=== PATIENT | female | born 1980 | race Caucasian/White ===

== ENCOUNTER → 2017-09-21 09:01 | Outpatient (CLI) | payer OTHER, MEDICARE, SELFPAY ==
[2017-09-21 10:49] LABS: Microalbumin,Random Urine 14.7 mg/L (NO RANGE EST.); Microalbumin:Creatinine Ratio 7.1 mg/g CRE (<30 mg/g CRE)
[2017-09-21 11:21] LABS: AST(SGOT) 17 U/L (15-37); Alanine Aminotransfer ALT/SGPT 16 U/L (13-56); Anion Gap 10 (5-15); BUN 15 mg/dL (7-18); BUN/Creat Ratio 17.4 RATIO (10-20); Calcium,Total 7.8 mg/dL (8.5-10.1); Chloride 106 mmol/L (98-107); Cholesterol 144 mg/dL (200); Creatinine, Serum 0.86 mg/dL (0.55-1.02); EST Glomerular Filtration Rate 79 mL/min (>60); Est Glom Filt Rate - Afr Amer 96 mL/min (>60); Glucose 216 mg/dL (74-106); High Density Lipoprotein 51 mg/dL; Potassium 4.1 mmol/L (3.5-5.1); Sodium Level 142 mmol/L (136-145); Thyroid Stim Hormone (TSH) 5.32 uIU/mL (0.358-3.74); Triglycerides 74 mg/dL; Very Low Density Lipoprotein 15 mg/dL (5-40)
[2017-09-22 08:39] LABS: Vitamin D,25 Hydroxy 32.4 ng/mL (29.95-100.01)
== END ==
PROVIDERS: Family Provider Family Medicine; PCP Family Medicine; Visit Provider Nurse Practitioner Adult Health
DX: E10.65 Type 1 diabetes mellitus with hyperglycemia (principal); E55.9 Vitamin D deficiency, unspecified
CPT/HCPCS: 36415; 80048; 80061; 82043; 82306; 82570; 83036; 84443; 84450; 84460

== ENCOUNTER → 2018-02-22 09:35 | Outpatient (CLI) | payer MEDICARE, SELFPAY ==
[2018-02-22 11:07] LABS: Microalbumin,Random Urine 10.8 mg/L (NO RANGE EST.)
[2018-02-22 11:16] LABS: Hemoglobin A1c 8.5 % (4.2-6.3)
[2018-02-22 11:34] LABS: AST(SGOT) 19 U/L (15-37); Alanine Aminotransfer ALT/SGPT 17 U/L (13-56); Anion Gap 8 (5-15); BUN 14 mg/dL (7-18); BUN/Creat Ratio 17.5 RATIO (10-20); Calcium,Total 7.8 mg/dL (8.5-10.1); Chloride 107 mmol/L (98-107); Cholesterol 142 mg/dL (200); EST Glomerular Filtration Rate 87 mL/min (>60); Est Glom Filt Rate - Afr Amer 105 mL/min (>60); Glucose 212 mg/dL (74-106); High Density Lipoprotein 51 mg/dL; Potassium 4.2 mmol/L (3.5-5.1); Sodium Level 140 mmol/L (136-145); Thyroid Stim Hormone (TSH) 3.59 uIU/mL (0.358-3.74); Triglycerides 46 mg/dL; Very Low Density Lipoprotein 9 mg/dL (5-40)
[2018-02-22 11:41] LABS: Vitamin D,25 Hydroxy 40.2 ng/mL (29.95-100.01)
== END ==
PROVIDERS: Family Provider Family Medicine; PCP Family Medicine; Referring Provider Nurse Practitioner Adult Health; Visit Provider Nurse Practitioner Adult Health
DX: E10.65 Type 1 diabetes mellitus with hyperglycemia (principal); E55.9 Vitamin D deficiency, unspecified
CPT/HCPCS: 36415; 80048; 80061; 82043; 82306; 83036; 84443; 84450; 84460

== ENCOUNTER → 2018-06-09 11:13 | Outpatient (CLI) | payer MEDICARE, OTHER, SELFPAY ==
[2018-06-09 14:32] LABS: T4 Free Direct 0.85 ng/dL (0.76-1.46); Thyroid Stim Hormone (TSH) 3.94 uIU/mL (0.358-3.74)
== END ==
PROVIDERS: Family Provider Family Medicine; PCP Family Medicine; Referring Provider Nurse Practitioner Adult Health; Visit Provider Nurse Practitioner Adult Health
DX: E03.9 Hypothyroidism, unspecified (principal)
CPT/HCPCS: 36415; 84439; 84443

== ENCOUNTER 2018-08-24 06:00 | Day surgery (SDC) | payer MEDICARE, OTHER, SELFPAY ==
--- NOTE | 2010-08-18 11:11 | HP_ITS ---
Intake Intake Visit Reasons: right carpal tunnel Is patient in pain?: Yes Allergies No Known Allergies Allergy (Verified 08/18/18 08:40) Medications Insulin Aspart [Novolog] 1,000 unit CONT INF X1 08/01/18 [History Confirmed 08/01/18] Levothyroxine [Synthroid] 25 mcg PO MOTUWETHFR 08/01/18 [History Confirmed 08/01/18] Levothyroxine [Synthroid] 50 mcg PO SUSA 08/01/18 [History Confirmed 08/01/18] PFSH Social History Smoking Status: Never smoker HPI right carpal tunnel: Surgical H&P: Yes Details: Parts of this documentation were recorded by a scribe, this documentation accurately reflects the service provided and the decisions made by me, Rosario Castano, 08/18/18 0820. ARIADNA CAST is a 38 year old F here today for right hand. Patient complains of right middle finger trigger finger locking up. Patient notes that her finger is starting to stick. She complains of pain. She has had injections previously which have been helpful. She has numbness into her finger which comes and goes. ROS Const Reports system reviewed and no additional complaints, except as docu Eyes Reports system reviewed and no additional complaints, except as docu ENT Reports system reviewed and no additional complaints, except as docu Card Reports system reviewed and no additional complaints, except as docu Resp Reports system reviewed and no additional complaints, except as docu GI Reports system reviewed and no additional complaints, except as docu Reports system reviewed and no additional complaints, except as docu Musc Reports numbness, Reports stiffness Skin/Breast Reports system reviewed and no additional complaints, except as docu Neuro Yes system reviewed and no additional complaints, except as docu, Yes numbness Psych Reports system reviewed and no additional complaints, except as docu Endo Reports system reviewed and no additional complaints, except as docu Ortho Exam Right Wrist/Hand A1 marry trigger: Yes Assessment & Plan Problems 1. Trigger finger, right middle finger M65.331 Plan Reviewed the pre-operative plans with the patient. Risks and benefits of the procedure were fully explained, including but not limited to infection, neurovascular injury, continued pain, arthritis, stiffness, need for further surgery, re-injury, DVT, PE, general risks of anesthesia, and loss of limb or life. The patient understands all the risks and does wish to proceed with written consent. Reviewed post op restrictions Follow up post op or sooner if pain, swelling, numbness or associated symptoms, or concerns develop. All questions answered. Patient in agreement of plan. Coding Level of Care Code Off vis,est,level 3 Diagnoses Trigger finger, right middle finger M65.331
[2018-08-24] VITALS (7 sets, daily range): BP systolic 90–117; BP diastolic 55–80; PULSE 57–87; RESP 16–18; TEMP 36.3–36.9; O2SAT 94–96; BMI 29.0
[2018-08-24 06:56] LABS: Bedside Glucose 277 mg/dL (70-110)
[2018-08-24] MEDS: Cefazolin 2 GM in 0.9% Normal Saline 100 ML IV (07:26)
--- NOTE | 2018-08-24 07:42 | DCINST_ITS ---
Discharge Diet: No Restrictions - leave dressing intact, change dressing if gets wet or dirty, follow up in 2 weeks Discharge Activity: May Not Drive May shower in (days): 1 Ice area for (Minutes): 20 - Every hour while awake. Weight Bearing Status: Weight bearing as tolerated Keep extremity elevated above heart level: Operative Extremity Call your doctor if your incision/area has: Continuous Slow Oozing, Sudden Increased Bleeding, Increased Pain/ Swelling, Increased Redness, Foul Smelling Discharge Call your doctor if you observe: Fever of 101 or Higher, Coldness, Increased Pain, Numbness or Tingling, Change in Color, Calf discomfort Allergies/Adverse Reactions: Allergies No Known Allergies Allergy (Verified 08/24/18 06:30) Medications to take at Discharge Insulin Aspart [Novolog] 1,000 unit CONT INF X1 08/01/18 Levothyroxine [Synthroid] 25 mcg PO MOTUWETHFR 08/01/18 Levothyroxine [Synthroid] 50 mcg PO SUSA 08/01/18 Primary Care Physician: Kaylee Estrada DO [Primary Care Provider] - Test Results: Test results from this visit will be discussed in further detail at your follow- up appointment, if applicable. Please Follow Up With: Rosario Castano DO - [phone]
--- NOTE | 2018-08-24 07:42 | PCM.OPRPT ---
Report of Operation Date of Procedure: 08/24/18 Pre-Operative Diagnosis: right third trigger finger Post-Operative Diagnosis: same Surgery/Procedure Performed:: right A1 marry release third finger Type of Anesthesia:: Kamilah,Yandy Anesthesiologist: Trent Henao Specimen's removed: tt- 20 mins (yandy block) Estimated Blood Loss (mL): minimal Fluids Replaced: 200cc lr Description of Procedure: Preoperative note Patient is a 38 year-old female who came into my office as a new patient this week with a locked in quite painful right third middle finger. Due to the fact that it was locking quite painful failed conservative treatment, patient and mom decided to operate so she can regain function and decrease her pain and locking. Risks benefits and alternatives surgery discussed with patient and mom. Risks including but not limited to blood loss, blood clot, infection, neurovascular injury, failure procedure, loss of life and loss of limb. Patient is aware would like proceed with right trigger finger middle release A1 marry release. Operative note Patient seen and examined preoperative holding area. Right middle finger was marked. Patient is brought to the operating room and placed supine on the operating table. Sign, anesthesia, antibiotics were administered. The right arm was prepped and draped in usual sterile fashion after [place] block was initiated. We did test the [place] block it was working. Timeout was performed. We marked out our incision at the A1 marry of the right middle finger. We was about a centimeter and a half for length. We used a 15 blade to cut the skin tenotomies to dissect down to the level of the A1 marry. We then released the A1 marry both proximally and distally we then brought the tendons out of the incision and flex and extend at the DIP of the right middle finger to ensure that we had no further locking which we did not have. We then irrigated the incision with copious amounts of sterile saline. Incision was closed with interrupted 4-0 nylon stitches. Tourniquet was deflated for total working time of 6 minutes. Patient tolerated procedure well there are no complications, patient transferred to recovery room in stable condition. Postoperative note Use hand as tolerated but keep incision clean and dry Discussed with family Follow-up in 2 weeks for dressing change and suture removal OT family This note was generated with [employer] software. It may contain incorrect words, spelling, and punctuation that were not noted in checking the note before signing.
--- NOTE | 2018-08-24 07:45 | OP.PCM_ITS ---
Report of Operation Date of Procedure: 08/24/18 Pre-Operative Diagnosis: right third trigger finger Post-Operative Diagnosis: same Surgery/Procedure Performed:: right A1 marry release third finger Type of Anesthesia:: Kamilah,Yandy Anesthesiologist: Trent Henao Specimen's removed: tt- 20 mins (yandy block) Estimated Blood Loss (mL): minimal Fluids Replaced: 200cc lr Description of Procedure: Preoperative note Patient is a 38 year-old female who came into my office as a new patient this week with a locked in quite painful right third middle finger. Due to the fact that it was locking quite painful failed conservative treatment, patient and mom decided to operate so she can regain function and decrease her pain and locking. Risks benefits and alternatives surgery discussed with patient and mom. Risks including but not limited to blood loss, blood clot, infection, neurovascular injury, failure procedure, loss of life and loss of limb. Patient is aware would like proceed with right trigger finger middle release A1 marry release. Operative note Patient seen and examined preoperative holding area. Right middle finger was marked. Patient is brought to the operating room and placed supine on the operating table. Sign, anesthesia, antibiotics were administered. The right arm was prepped and draped in usual sterile fashion after [place] block was initiated. We did test the [place] block it was working. Timeout was performed. We marked out our incision at the A1 marry of the right middle finger. We was about a centimeter and a half for length. We used a 15 blade to cut the skin tenotomies to dissect down to the level of the A1 marry. We then released the A1 marry both proximally and distally we then brought the tendons out of the incision and flex and extend at the DIP of the right middle finger to ensure that we had no further locking which we did not have. We then irrigated the incision with copious amounts of sterile saline. Incision was closed with interrupted 4-0 nylon stitches. Tourniquet was deflated for total working time of 6 minutes. Patient tolerated procedure well there are no complications, patient transferred to recovery room in stable condition. Postoperative note Use hand as tolerated but keep incision clean and dry Discussed with family Follow-up in 2 weeks for dressing change and suture removal OT family This note was generated with [employer] software. It may contain incorrect words, spelling, and punctuation that were not noted in checking the note before signing.
[2018-08-24] MEDS: Mupirocin Ointment 22gm Tube 1 APPLIC (07:49)
== END 2018-08-24 09:21 | disposition home or self-care (01) ==
LOC: SDC 06:00 → AC 06:03
PROVIDERS: Family Provider Family Medicine; PCP Family Medicine; Referring Provider Orthopaedic Surgery; Visit Provider Orthopaedic Surgery
PROC: (CPT 26055; principal; 2018-08-24 07:20)
DX: M65.331 Trigger finger, right middle finger (principal); E10.9 Type 1 diabetes mellitus without complications; Z96.41 Presence of insulin pump (external) (internal); E07.9 Disorder of thyroid, unspecified; Z79.899 Other long term (current) drug therapy
CPT/HCPCS: 26055; 82962; J7120; J2405

== ENCOUNTER → 2018-09-30 | Outpatient (CLI) | payer MEDICARE, OTHER, SELFPAY ==
[2018-09-06 09:25] VITALS: BMI 29.0
[2018-09-30 10:24] LABS: Hemoglobin A1c 8.2 % (4.2-6.3); Vitamin D,25 Hydroxy 24.2 ng/mL (29.95-100.01)
[2018-09-30 10:40] LABS: AST(SGOT) 17 U/L (15-37); Alanine Aminotransfer ALT/SGPT 23 U/L (13-56); Anion Gap 6 (5-15); BUN 18 mg/dL (7-18); BUN/Creat Ratio 20.9 RATIO (10-20); Calcium,Total 8.1 mg/dL (8.5-10.1); Chloride 108 mmol/L (98-107); Cholesterol 145 mg/dL (200); Creatinine, Serum 0.86 mg/dL (0.55-1.02); EST Glomerular Filtration Rate 79 mL/min (>60); Est Glom Filt Rate - Afr Amer 96 mL/min (>60); Glucose 51 mg/dL (74-106); High Density Lipoprotein 54 mg/dL; Potassium 4.1 mmol/L (3.5-5.1); Sodium Level 141 mmol/L (136-145); T4 Free Direct 0.94 ng/dL (0.76-1.46); Thyroid Stim Hormone (TSH) 0.78 uIU/mL (0.358-3.74); Triglycerides 50 mg/dL; Very Low Density Lipoprotein 10 mg/dL (5-40)
[2018-09-30 12:59] LABS: Microalbumin,Random Urine 7.3 mg/L (NO RANGE EST.)
== END | disposition home or self-care (01) ==
LOC: MTLAB 07:26
PROVIDERS: Family Provider Family Medicine; PCP Family Medicine; Referring Provider Nurse Practitioner Adult Health; Visit Provider Nurse Practitioner Adult Health
DX: E10.65 Type 1 diabetes mellitus with hyperglycemia (principal); E55.9 Vitamin D deficiency, unspecified; E03.9 Hypothyroidism, unspecified
CPT/HCPCS: 36415; 80048; 80061; 82043; 82306; 83036; 84439; 84443; 84450; 84460

== ENCOUNTER 2018-11-29 10:49 | Emergency (ER) | payer MEDICARE, OTHER, SELFPAY ==
[2018-09-06 09:25] VITALS: BMI 29.0
[2018-11-29 10:50] VITALS: BP 118/76; PULSE 62; RESP 16; TEMP 36.1; O2SAT 100; BMI 32.7
--- NOTE | 2018-11-29 10:54 | ED.VIS.GEN ---
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 intake Relieved by: D50 infusion Associated Symptoms: Altered level of consciousness Narrative: Patient is a 38-year-old type I diabetic who manages her blood sugar well according to the loader operator supervisor. She had a donut for breakfast and had a glass of orange juice midmorning. The managers uncertain last time she had hypoglycemic event. Patient is reluctant to speak because I am unknown to her. Washery Engineer of [facility] answered most questions. Washery Engineer states she is not at baseline presently. She voiced no other symptoms in the last 24 to 48 hours. Prior similar symptoms: Yes Recent Illness/Hospitalization: No - Past Medical History (1) History of type 1 diabetes mellitus Status: Acute (2) HLD (hyperlipidemia) Status: Chronic (3) Trisomy 21 Status: Chronic (4) hx of bowel obstruction Status: Chronic Past Medical History - Allergies and Home Meds Allergies/Adverse Reactions: Allergies No Known Allergies Allergy (Verified 08/24/18 06:30) Primary Care Physician: Kaylee Estrada DO [Primary Care Provider] - Prior records reviewed: Yes Lives: Roommate Smoking Status: Never smoker Alcohol: None Drugs: None Review of Systems ROS: Unable to Obtain - Omitted secondary to cognitive impairment and altered mental status secondary to hypoglycemia General: Denies: Chills, Fever ENT: Denies: Rhinorrhea, Sore throat Cardiovascular: Denies: Chest pain Respiratory: Denies: Dyspnea, Cough Gastrointestinal: Denies: Nausea, Vomiting Musculoskeletal: Denies: Myalgias, Arthralgias Skin: Denies: Rash Neurological: Denies: Headache, Weakness Hematologic: Denies: Easy bruising, Easy bleeding Allergy: Denies: Uticaria, Swelling of the mouth Physical Exam Vital Signs/Narrative: Vital Signs Temp Pulse Resp BP Pulse Ox 11/29/18 10:50 97 F L 62 16 118/76 100 Inital Vital Signs reviewed: Yes General: Well nourished, Well developed, No Acute Distress Head: Normocephalic, Atraumatic Eyes: Perrl, EOMI. Negative for: Pale conjunctiva, Scleral icterus, - ENT: Moist mucous membranes, No rhinorrhea Neck: Supple, Nontender, No lymphadenopathy, No JVD, - Cardiovascular: Regular rate, Regular rhythm, No murmurs Respiratory: No distress, CTA bilaterally, Chest nontender Abdomen: Soft, Nontender, Nondistended, Normal bowel sounds Extremities: Nontender, No edema Skin: Normal color, No rash, No Trauma. Negative for: Cyanosis, Diaphoresis, Jaundice Neurological: Alert, Cranial nerves II-XII grossly intact, Normal Strength, Normal Sensation, Normal DTR Psychological: - - Unable to determine Diagnostic/Tx/Re-eval - Medical Decision Making But sugar prior to arrival was 130. 1800-calorie diet was ordered. Will observe and reassess. ED Disposition - Plan for ED Patient: Disposition: Home or Assisted Living Diagnosis: Acute alteration in mental status, Hypoglycemia due to type 1 diabetes mellitus Instructions: Diabetic Insulin Reaction Referrals: Kaylee Estrada DO [Primary Care Provider] - As Needed
[2018-11-29 11:05] LABS: Bedside Glucose 132 mg/dL (70-110)
[2018-11-29 12:09] VITALS: BP 123/91; PULSE 87; RESP 14; O2SAT 97
== END 2018-11-29 12:10 | disposition home or self-care (01) ==
PROVIDERS: Emergency Provider Emergency Medicine; Family Provider Family Medicine; PCP Family Medicine
DX: E10.649 Type 1 diabetes mellitus with hypoglycemia without coma (principal); R41.82 Altered mental status, unspecified; Q90.9 Down syndrome, unspecified; Z87.19 Personal history of other diseases of the digestive system; Z79.4 Long term (current) use of insulin
CPT/HCPCS: 82962; 99284; A4216

== ENCOUNTER → 2020-01-19 12:03 | Outpatient (CLI) | payer MEDICARE, MEDICAID, SELFPAY ==
[2020-01-19 15:43] LABS: Vitamin D,25 Hydroxy 74.8 ng/mL
[2020-01-19 15:47] LABS: AST(SGOT) 21 U/L (15-37); Alanine Aminotransfer ALT/SGPT 17 U/L (13-56); Anion Gap 6 (5-15); BUN 16 mg/dL (7-18); BUN/Creat Ratio 18.8 RATIO (10-20); Calcium,Total 8.5 mg/dL (8.5-10.1); Chloride 102 mmol/L (98-107); Cholesterol 174 mg/dL (200); Creatinine, Serum 0.85 mg/dL (0.55-1.02); EST Glomerular Filtration Rate 79 mL/min (>60); Est Glom Filt Rate - Afr Amer 96 mL/min (>60); Glucose 253 mg/dL (74-106); Hemoglobin A1c 8.6 % (3.8-5.6); High Density Lipoprotein 67 mg/dL; Potassium 4.8 mmol/L (3.5-5.1); Sodium Level 136 mmol/L (136-145); T4 Free Direct 0.86 ng/dL (0.76-1.46); Thyroid Stim Hormone (TSH) 4.21 uIU/mL (0.358-3.74); Triglycerides 75 mg/dL; Very Low Density Lipoprotein 15 mg/dL (5-40)
[2020-01-19 15:57] LABS: Microalbumin,Random Urine 6.1 mg/L (NO RANGE EST.); Microalbumin:Creatinine Ratio 9.2 mg/g CRE (<30 mg/g CRE)
[2020-01-23 11:17] LABS: LDL, Direct 120295 95 mg/dL (0-99)
== END ==
PROVIDERS: PCP Family Medicine
DX: E10.65 Type 1 diabetes mellitus with hyperglycemia (principal); E55.9 Vitamin D deficiency, unspecified; E03.9 Hypothyroidism, unspecified
CPT/HCPCS: 36415; 80048; 80061; 82043; 82306; 82570; 83036; 83721; 84439; 84443; 84450; 84460

== ENCOUNTER 2020-07-13 13:49 | Emergency (ER) | payer MEDICARE, MEDICAID, SELFPAY ==
[2020-07-13 13:51] VITALS: BP 122/52; PULSE 80; RESP 20; TEMP 35.8; O2SAT 98; BMI 30.4
--- NOTE | 2020-07-13 14:33 | CT_ITS ---
STUDY: CT ABDOMEN AND PELVIS WITH CONTRAST REASON FOR EXAM: Female, 39 years old. abd pain -- ??SBO vs other RADIATION DOSAGE (If Supplied By Facility): CTDIvol = ( 12.20 ) mGy, DLP = ( 733.02 ) mGycm TECHNIQUE: Transaxial images were obtained from the dome of the diaphragm to the symphysis pubis without oral contrast. IV 75mL Isovue-370 was administered. Sagittal and coronal images were reconstructed. Individualized dose optimization techniques were used for this CT. COMPARISON: None. FINDINGS: The visualized lung bases are unremarkable. The visualized portions of the heart are within normal limits. Normal liver. Normal gallbladder and extrahepatic biliary system. Normal spleen. Normal pancreas. Normal bilateral adrenal glands. Normal right kidney. Normal left kidney. Normal visualized stomach. Normal small intestine. Normal colon. The appendix is visualized and appears normal. Normal abdominal aorta. Normal inferior vena cava. Normal retroperitoneum. Normal urinary bladder. 2 cm thin-walled enhancing cyst or large dominant follicle of the left ovary. Mild free fluid of the pelvis. Enhancing or calcified nodule of the cervix to the right of midline measuring 1.5 cm. Normal abdominal wall. Normal osseous structures. CT/Abdomen/Pelvis W IV Cont ONLY IMPRESSION: No acute bowel related findings. Negative for obstruction, perforation or inflammatory bowel changes. The appendix is not identified. There is no inflammation in the expected location of the appendix. Normal kidneys bilaterally without hydronephrosis or stones. Unremarkable urinary bladder. Status post hysterectomy. 2 cm cyst of the left ovary consistent with a large dominant follicle or ovarian cyst which is slightly crenated and may be a ruptured cyst. Mild free fluid of the pelvis. Dense 1.5 cm nodule or enhancing nodule in the cervical cuff to the right of midline. Right ovary at a higher level and unremarkable. Electronically Signed: Evelin Randhawa MD at 16:11 EST , Service support ,
--- NOTE | 2020-07-13 14:35 | ED.DCSUM_ITS ---
- ER Visit Summary Date of Service: 07/13/20 Chief Complaint: Abdominal pain with nausea, vomiting diarrhea History of Present Illness: The patient is a 39 F 3 of independent diabetes and prior bowel obstruction. Prior partial hysterectomy with appendectomy and 2 prior bowel perforations with partial resections. Patient started having abdominal pain with nausea, vomiting and diarrhea earlier today. Elevated blood sugar as high as 600 at home. No fever or chills. No dysuria. Limited oral intake. Physical Examination: White female no acute distress vital signs stable afebrile. H EENT exam unremarkable. Moist with membranes. Neck nontender no lymphadenopathy. Lungs clear to auscultation bilaterally. Heart regular rhythm rate about 80 no murmur. Abdomen soft mildly distended. No peritoneal signs. Diffuse tenderness primarily in both upper quadrants. No obvious hernia or mass. Right lower quadrant unremarkable. Limited bowel sounds. Extremities moves all 4. No edema. Back nontender. Neurologically she is awake and alert with no focal motor deficits. Test Results: CBC normal white count 8 hemoglobin 13. No bands. Chemistries gap of 6 creatinine 1.27 glucose 265 liver enzymes normal lipase 56 UA negative serum ketones negative. CAT scan abdomen pelvis with IV contrast only as read by the radiologist and reviewed by me shows Emergency Department Course and Treatment: 39-year-old abdominal pain with prior obstructions and perforations. CAT scan labs being obtained. IV fluids, IV morphine and Zofran. Repeat exam patient is doing well at 4:10 PM. Abdomen is benign. She is requ esting water which I gave her some the drink. She and I and her mother went over all of her test results. Were awaiting her CAT scan report. Treatment Plan: Zofran as needed for nausea. Plenty of fluids and rest. Follow-up with your doctor if not improving or return if worse. Disposition: Discharge Impression: Acute abdominal pain with nausea, vomiting and diarrhea secondary to viral gastroenteritis History of insulin-dependent diabetes with hyperglycemia This note was generated with [employer] dictation software. It may contain incorrect words, spelling, and punctuation that were not noted in review of the chart prior to signing ED Disposition - Plan for ED Patient: Referrals: Kaylee Estrada DO [Primary Care Provider] -
[2020-07-13] MEDS: Ondansetron 4 MG/2 ML Vial IV (15:03)
[2020-07-13] MEDS: Morphine 4 MG/ML Syringe 6 MG IV (15:03)
[2020-07-13] MEDS: 0.9% Normal Saline 1,000 ML 1000 ML IV (15:06)
[2020-07-13 15:08] LABS: Absolute Lymphocyte Count 1.12 X10^3/uL (0.83-4.51); Absolute Neutrophil Count 6.7 X10^3/uL (2.0-7.7); Basophil# 0.04 X10^3/uL; Basophil% 0.5 % (0-1); Hematocrit 39.6 % (37-47); Hemoglobin 13.3 g/dL (12.0-15.0); Lymphocyte # 1.12 X10^3/ul (4.0); Lymphocyte % 13.2 % (19-41); Mean Corp Hgb Conc 33.6 g/dL (32-36); Mean Corpuscular Hgb 33.8 pg (27.0-32.0); Mean Corpuscular Volume 100.5 fL (81-99); Mean Platelet Vol. 10.4 fl (6.2-12.0); Monocyte# 0.54 X10^3/uL; Monocyte% 6.4 % (0-10); NRBC Flagged by Analyzer 0 % (0-5); Neutrophil # 6.74 X10^3/uL (2.7-7.7); Neutrophil % 79.5 % (47-70); Platelet Count 232 K/mm3 (150-450); RBC Distribution Width CV 11.9 % (11.6-14.6); RBC Distribution Width SD 43.9 fl (35.1-43.9); Red Blood Count 3.94 M/mm3 (4.2-5.4); White Blood Count 8.5 K/mm3 (4.4-11.0)
[2020-07-13 15:28] LABS: Mucous, Urine 0 SEEN /hpf (<or=2+); Red Blood Cells-Urine 0 SEEN /hpf (0-5); White Blood Cells 0 SEEN /hpf (0-5)
[2020-07-13 15:32] LABS: ALB/GLOB Ratio 0.8 RATIO (0.9-2.4); AST(SGOT) 31 U/L (15-37); Alanine Aminotransfer ALT/SGPT 18 U/L (13-56); Albumin, Serum 2.9 g/dL (3.2-5.0); Alkaline Phosphatase 84 U/L (45-117); Anion Gap 6 (5-15); BUN 26 mg/dL (7-18); BUN/Creat Ratio 20.5 RATIO (10-20); Calcium,Total 8.5 mg/dL (8.5-10.1); Chloride 103 mmol/L (98-107); Creatinine, Serum 1.27 mg/dL (0.55-1.02); EST Glomerular Filtration Rate 50 mL/min (>60); Est Glom Filt Rate - Afr Amer 61 mL/min (>60); Estimated Creatinine Clearance 43.56 ml/min; Globulin 3.5 g/dL (2.2-4.2); Glucose 265 mg/dL (74-106); Lipase 56 U/L (73-393); Potassium 4.9 mmol/L (3.5-5.1); Protein, Total 6.4 g/dL (6.4-8.2); Sodium Level 136 mmol/L (136-145)
[2020-07-13 15:36] LABS: Color, Urine Yellow (Yellow); Glucose, Dipstick 1000 mg/dl (Normal); Ketone-Dipstick 5 mg/dl (Negative); Leukocyte Esterase-Dipstick Negative /ul (Negative); Nitrite-Dipstick Negative (Negative); Occult Blood-Urine 10 /ul (Negative); Protein-Dipstick Negative (Negative); Urine Bilirubin Dipstick Negative (Negative); Urine Clarity Clear (Clear); Urine Urobilinogen Normal (Normal)
[2020-07-13 15:43] LABS: Bacteria 1+ /hpf (None Seen); Squamous Epithelial Cells - UA 5-10 SEEN /hpf (5-10)
--- NOTE | 2020-07-13 16:12 | ED.DEP ---
ED Disposition - Plan for ED Patient: Disposition: Home or Assisted Living Instructions: ED Gastroenteritis, Viral (Adult) Prescriptions: Ondansetron [Zofran Odt] 4 mg PO Q8H PRN PRN #7 tab PRN Reason: Nausea Prescription Printed Referrals: Kaylee Estrada DO [Primary Care Provider] - 1-2 Days if not improving Additional Instructions: Plenty of fluids and rest. Increase diet slowly. Zofran as needed for nausea. Follow-up with your doctor if not improving.
[2020-07-13 16:29] VITALS: PULSE 81; RESP 17; O2SAT 98
== END 2020-07-13 16:30 | disposition home or self-care (01) ==
PROVIDERS: Emergency Provider Emergency Medicine; PCP Family Medicine
DX: A08.4 Viral intestinal infection, unspecified (principal); E11.65 Type 2 diabetes mellitus with hyperglycemia; Z87.19 Personal history of other diseases of the digestive system; Z79.4 Long term (current) use of insulin; Z79.899 Other long term (current) drug therapy
CPT/HCPCS: 74177; 80053; 81001; 82009; 83690; 85025; 96361; 96374; 96375; 99284; J7030; Q9967; A4216; J2405

== ENCOUNTER 2020-08-07 20:07 | Observation (INO) | payer MEDICARE, MEDICAID, SELFPAY ==
[2020-08-07 20:08] VITALS: PULSE 49; RESP 18; TEMP 35; O2SAT 100; BMI 35.5
[2020-08-07 20:19] VITALS: BP 103/71; PULSE 42; PULSE 46; RESP 13; RESP 16; TEMP 35; O2SAT 100
--- NOTE | 2020-08-07 20:24 | EKG12_ITS ---
Test Reason : DYSRHYTHMIA Blood Pressure : / mmHG Vent. Rate : 041 BPM Atrial Rate : 041 BPM P-R Int : 176 ms QRS Dur : 084 ms QT Int : 482 ms P-R-T Axes : 030 065 024 degrees QTc Int : 397 ms Marked sinus bradycardia Abnormal ECG Confirmed by TILA ABRAMS, KATIE ([id number]), assignment editor SOILA LOMBARDI ([id number]) on 08/13/2020 8:51:34 AM Referred By: CORDELIA Confirmed By:KATIE ADORNO MD
--- NOTE | 2020-08-07 20:25 | CT_ITS ---
STUDY: CT ABDOMEN AND PELVIS WITH CONTRAST REASON FOR EXAM: Female, 40 years old. Abdominal pain. Unresponsive. RADIATION DOSAGE (If Supplied By Facility): CTDIvol = ( 19.67 ) mGy, DLP = ( 974.00 ) mGycm TECHNIQUE: Transaxial images were obtained from the dome of the diaphragm to the symphysis pubis without oral contrast. 100 ml of ISOVUE-370 contrast was administered. Sagittal and coronal images were reconstructed. Individualized dose optimization techniques were used for this CT. COMPARISON: 07/13/20 FINDINGS: This study is limited by patient motion and by streak artifact due to the patient''s arms being at her sides. The visualized lung bases are clear. The visualized portions of the heart and pericardium are within normal limits. There are no calcified gallstones present. The liver is within normal limits. There are no suspicious hepatic lesions. The spleen is normal in size. The pancreas is within normal limits. The adrenal glands are within normal limits. There are no renal or ureteral stones. There is no hydronephrosis. There are no focal renal lesions. Normal visualized stomach. There is no bowel obstruction or inflammation. There is a large amount of stool in the colon, consistent with constipation. The appendix is not visualized. The aorta is normal in caliber. There is no abdominal or pelvic free air, free fluid, fluid collection or lymphadenopathy. The patient is status post hysterectomy. There is a stable high density soft tissue nodule in the region of the cervix. There are no destructive osseous lesions. CT/Abdomen/Pelvis W IV Cont ONLY IMPRESSION: No bowel obstruction or inflammation. Constipation. Appendix not identified. Normal kidneys. No hydronephrosis. Status post hysterectomy. Stable high-density nodule in the cervix which may represent a complex nabothian cyst. Indicated, further evaluation with ultrasound can be performed. Electronically Signed: Dhruv Dietrich MD at 21:57 EDT Tel , Service support ,
--- NOTE | 2020-08-07 20:27 | ED.DCSUM_ITS ---
History of Present Illness Chief Complaint: Unresponsive Detail of Chief Complaint: Sponsor, bradycardia, hypothermia Informant: Family Onset: Hours Context: Sudden Onset Timing: Intermittent Quality: Responsive with labored breathing and worrying sounds Location: Gardening Current Severity: Mild Maximum Severity: Severe Worsened by: Unknown Relieved by: Nothing Associated Symptoms: Unable to determine Narrative: Patient is a 40-year-old woman with history of trisomy 21, Down syndrome, and type 1 diabetes who was gardening. Mother states she was gardening all day. When they went to check on her she was on her side somewhat position with arms drawn in. There was no obvious seizure activity. Mother states she had labored breathing and a roaring sound. They administered glucagon which had no effect. There is been no reported black or maroon stool. She denies pain anywhere. She denies shortness of breath. She denies problems with her vision. Prior similar symptoms: No Recent Illness/Hospitalization: No - Past Medical History (1) History of type 1 diabetes mellitus Status: Acute (2) HLD (hyperlipidemia) Status: Chronic (3) Trisomy 21 Status: Chronic Past Medical History - Allergies and Home Meds Allergies/Adverse Reactions: Allergies No Known Allergies Allergy (Verified 08/07/20 20:16) Primary Care Physician: Kaylee Estrada DO [Primary Care Provider] - Prior records reviewed: Yes Surgical History: - - Traumatic bowel perforation Lives: With Family Smoking Status: Never smoker Alcohol: None Drugs: None Review of Systems ROS: Unable to Obtain - Denies everything. History was provided by parents Physical Exam Vital Signs/Narrative: Vital Signs Temp Pulse Resp BP Pulse Ox 08/07/20 20:19 95 F L 42 L 13 103/71 100 08/07/20 20:08 95 F L 49 L 18 100 Inital Vital Signs reviewed: Yes General: Well nourished, Well developed, Obese, No Acute Distress Head: Normocephalic, Trauma - Old trauma Eyes: Perrl, EOMI, - - Nystagmus. There is no subconjunctival hemorrhage.. Negative for: Pale conjunctiva, Scleral icterus ENT: Moist mucous membranes, - - There is no clinical findings of basilar skull fracture.. Negative for: Nasal congestion, Sinus tenderness Neck: Supple, Nontender Cardiovascular: Regular rhythm, Normal S1, Normal S2, Bradycardia Respiratory: No distress, CTA bilaterally, Chest nontender Abdomen: No masses, Tender, Guarding, Hypoactive bowel sounds, - - Healed surgical scar noted.. Negative for: Soft, Nontender, Nondistended, Normal bowel sounds, Hepatomegaly, Splenomegaly Rectal: Deferred Back: Nontender, Normal Inspection Extremities: Nontender, No edema Skin: No Trauma, Rash - Circular rash with delayed capillary refill, 3 to 4 seconds. Negative for: Normal color, Cyanosis, Diaphoresis, Jaundice Neurological: Alert, Cranial nerves II-XII grossly intact, Normal Strength, Normal Sensation Psychological: Normal affect Diagnostic/Tx/Re-eval Impressions Abdomen/Pelvis CT 08/07/20 20:25 IMPRESSION: No bowel obstruction or inflammation. Constipation. Appendix not identified. Normal kidneys. No hydronephrosis. Status post hysterectomy. Stable high-density nodule in the cervix which may represent a complex nabothian cyst. Indicated, further evaluation with ultrasound can be performed. Electronically Signed: Dhruv Dietrich MD at 21:57 EDT Tel , Service support , 08/07/20 20:25 Abdomen/Pelvis W IV Cont ONLY [CT] Stat Laboratory Results 08/07/20 08/07/20 08/07/20 20:35 20:35 20:35 WBC 5.5 RBC 4.24 Hgb 14.0 Hct 42.2 MCV 99.5 H MCH 33.0 H MCHC 33.2 RDW Std Deviation 44.2 H RDW Coeff of Lamine 12.1 Plt Count 244 MPV 10.0 Immature Gran % (Auto) 0.400 Neut % (Auto) 55.4 Lymph % (Auto) 31.3 [place] % (Auto) 10.0 Eos % (Auto) 2.2 Baso % (Auto) 0.7 Absolute Neuts (auto) 3.0 Absolute Lymphs (auto) 1.72 Nucleated RBC % 0 Sodium 136 Potassium 3.6 Chloride 102 Carbon Dioxide 26.0 Anion Gap 8 BUN 20 H Creatinine 1.04 H Estim Creat Clear Calc 52.68 Est GFR (MDRD) Af Amer 76 Est GFR (MDRD) Non-Af 63 BUN/Creatinine Ratio 19.2 Glucose 91 Lactic Acid 2.2 H* Calcium 8.8 Total Bilirubin 0.40 AST 25 ALT 21 Alkaline Phosphatase 84 Troponin I < 0.015 Total Protein 6.8 Albumin 3.2 Globulin 3.6 Albumin/Globulin Ratio 0.9 Lipase 80 TSH 2.65 With lactic acidosis, hypotension and collapse with bradycardia hospitalist was paged for admission. CT of the abdomen reveals no abnormality to explain her upper abdominal discomfort. - EKG Initial EKG Interpretation: Sinus Bradycardia - Sinus bradycardia with a ventricular rate of 41. WV interval is 176 ms. Cures duration 84 ms. QT duration 482 ms. Jenison is normal. - Medical Decision Making EKG was obtained since monitor reveals bradycardia. CBC was obtained assess white count and H&H. BMP to assess blood sugar, electrolytes and renal function. Since patient has a very tender firm/rigid abdomen CT of the abdomen was ordered. Review of prior records indicates normal blood pressure is 120 systolic. She is had multiple readings of low 100s. She did receive a fluid bolus. Patient remained hypotensive after first bolus. Second bolus was ordered. Since patient is not tachypneic nor hypoxic CT of the chest was not obtained. 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
[2020-08-07 20:46] LABS: Absolute Lymphocyte Count 1.72 X10^3/uL (0.83-4.51); Basophil# 0.04 X10^3/uL; Basophil% 0.7 % (0-1); Eosinophil# 0.12 X10^3/uL; Eosinophils% 2.2 % (0-5); Hematocrit 42.2 % (37-47); Lymphocyte # 1.72 X10^3/ul (4.0); Lymphocyte % 31.3 % (19-41); Mean Corp Hgb Conc 33.2 g/dL (32-36); Mean Corpuscular Volume 99.5 fL (81-99); Monocyte# 0.55 X10^3/uL; NRBC Flagged by Analyzer 0 % (0-5); Neutrophil # 3.04 X10^3/uL (2.7-7.7); Neutrophil % 55.4 % (47-70); Platelet Count 244 K/mm3 (150-450); RBC Distribution Width CV 12.1 % (11.6-14.6); RBC Distribution Width SD 44.2 fl (35.1-43.9); Red Blood Count 4.24 M/mm3 (4.2-5.4); White Blood Count 5.5 K/mm3 (4.4-11.0)
[2020-08-07 21:08] VITALS: BP 110/65; PULSE 55; RESP 16; O2SAT 100
[2020-08-07 21:25] LABS: ALB/GLOB Ratio 0.9 RATIO (0.9-2.4); AST(SGOT) 25 U/L (15-37); Alanine Aminotransfer ALT/SGPT 21 U/L (13-56); Albumin, Serum 3.2 g/dL (3.2-5.0); Alkaline Phosphatase 84 U/L (45-117); Anion Gap 8 (5-15); BUN 20 mg/dL (7-18); BUN/Creat Ratio 19.2 RATIO (10-20); Calcium,Total 8.8 mg/dL (8.5-10.1); Chloride 102 mmol/L (98-107); Creatinine, Serum 1.04 mg/dL (0.55-1.02); EST Glomerular Filtration Rate 63 mL/min (>60); Est Glom Filt Rate - Afr Amer 76 mL/min (>60); Estimated Creatinine Clearance 52.68 ml/min; Globulin 3.6 g/dL (2.2-4.2); Glucose 91 mg/dL (74-106); Lipase 80 U/L (73-393); Potassium 3.6 mmol/L (3.5-5.1); Protein, Total 6.8 g/dL (6.4-8.2); Sodium Level 136 mmol/L (136-145); Thyroid Stim Hormone (TSH) 2.65 uIU/mL (0.358-3.74)
[2020-08-07 21:33] LABS: Lactic Acid 2.2 mmol/L (0.4-1.9)
[2020-08-07 22:15] VITALS: BP 119/72; PULSE 53; PULSE 55; RESP 14; RESP 15; TEMP 35.8; O2SAT 100
[2020-08-07 22:33] VITALS: BP 119/72; PULSE 52; RESP 16; TEMP 35.8; O2SAT 100
[2020-08-07 22:55] LABS: Bedside Glucose 104 mg/dL (70-110)
--- NOTE | 2020-08-07 22:56 | HP.PCM_ITS ---
Problem List (1) Syncope and collapse Status: Acute (2) Sinus bradycardia Status: Acute (3) Lactic acidosis Status: Acute (4) History of type 1 diabetes mellitus Status: Chronic (5) Trisomy 21 Status: Chronic History of Present Illness Date of Admission: 08/07/20 Chief Complaint: Syncope, bradycardia The patient is a 40 year old F presents today after her parents found her unresponsive in the garden. She is type I diabetic and parents initially thought she had a low blood sugar and subsequently administered glucagon which did not resolve symptoms. EMS reports an initial heart rate of 40 and fingerstick blood glucose 203. Labs completed in the ER show a mild elevation of BUN and creatinine 20/1.04, lactic acid of 2.2, glucose 91. Subsequent fingerstick glucose 104. Patient received 500 ml bolus normal saline in ER. Patient denies fever, chills, chest pain, shortness of breath, nausea. Patient does not remember what happened prior to episode and currently denies all complaints. Past Medical History Past Medical History (Chronic Problems): Chronic Problems History of type 1 diabetes mellitus (Chronic) system 21 (Chronic) Trisomy 21 (Chronic) hx of bowel obstruction (Chronic) HLD (hyperlipidemia) (Chronic) Allergies No Known Allergies Allergy (Verified 08/07/20 20:16) Home Medications: Ambulatory Orders Medication Instructions Recorded Insulin Aspart [Novolog] 1,000 unit CONT INF X1 08/01/18 Levothyroxine [Synthroid] 25 mcg PO MOTUWETHFR 08/01/18 Levothyroxine [Synthroid] 50 mcg PO SUSA 08/01/18 Ondansetron [Zofran Odt] 4 mg PO Q8H PRN PRN #7 tab 07/13/20 Surgical History: hysterectomy, - - Traumatic bowel perforation Psychiatric History: No pertinent psych hx GEOPHYSICAL LABORATORY DIRECTOR History: No pertinent GEOPHYSICAL LABORATORY DIRECTOR history Lives: With Family Smoking Status: Never smoker Alcohol: None Drugs: None - *Family History Maternal History Items: No pertinent history Paternal History Items: Hypertension Review of Systems Constitutional: Denies: Chills, Fever, Weight Change HEENT: Denies: Head Aches, Sinus Congestion, Sinus Drainage Cardiovascular: Reports: Syncope. Denies: Chest Pain, Palpitations Respiratory: Denies: Cough, Shortness of breath at rest, Sputum production Gastrointestinal: Reports: Constipation. Denies: Abdominal Pain, Nausea, Vomiting Genitourinary: Denies: Dysuria Musculoskeletal: Reports: Arm Pain - Left upper extremity. Denies: Joint Pain, Joint Tenderness Skin: Denies: Rash, Wounds Neurological: Reports: Tingling - Left upper extremity. Denies: Focal weakness, Numbness Psychiatric: Denies: Anxiety, Depression, Homicidal Ideations, Suicidal Ideations Hematologic/ Lymphatic: Denies: Easy Bruising, Easy Bleeding VTE Information - Inpt Only VTE Present on Admission: No VTE Mechan Device Prophylaxis: None VTE Pharm Prophylaxis ordered?: No Patient Problems: Active and Suspected Problems Hypotension (Acute) Lactic acidosis (Acute) Sinus bradycardia (Acute) Collapse (Acute) Upper abdominal pain of unknown etiology (Acute) - Physical Exam Vitals/I&O's: Vital Signs Temp Pulse Resp BP Pulse Ox 96.4 F L 52 L 16 119/72 100 08/07/20 22:33 08/07/20 22:33 08/07/20 22:33 08/07/20 22:33 08/07/20 22:33 Oxygen Delivery Method Room Air Weight: 182 lb 1.629 oz Body Mass Index (BMI) 35.5 Finger Stick Blood Glucose 132 General: Alert, Oriented x3, Cooperative HEENT: Atraumatic, PERRLA, EOMI, Normocephalic Neck: Supple, No JVD, Negative Carotid Bruits Lungs: Clear to auscultation, Normal air movement Cardiovascular: Regular Rhythm, Normal S1, Normal S2, No murmurs, Bradycardic Abdomen: Bowel Sounds Present, Non Tender, Rigid Extremities: No edema, Capillary Refill Less than 3 Seconds, Peripheral Pulses Normal Skin: No rashes, No breakdown Musculoskeletal: No Tenderness to Palpation of Joints or Extremities, - - Left arm pain and tingling Neurological: Cranial nerves II-XII grossly intact Psych/Mental Status: Normal Affect, Appropriate Laboratory Results 08/07/20 20:35: WBC 5.5, RBC 4.24, Hgb 14.0, Hct 42.2, MCV 99.5 H, MCH 33.0 H, MCHC 33.2, RDW Std Deviation 44.2 H, RDW Coeff of Lamine 12.1, Plt Count 244, MPV 1 0.0, Immature Gran % (Auto) 0.400, Neut % (Auto) 55.4, Lymph % (Auto) 31.3, [place] % (Auto) 10.0, Eos % (Auto) 2.2, Baso % (Auto) 0.7, Absolute Neuts (auto) 3.0, Absolute Lymphs (auto) 1.72, Nucleated RBC % 0 08/07/20 20:35: Sodium 136, Potassium 3.6, Chloride 102, Carbon Dioxide 26.0, Anion Gap 8, BUN 20 H, Creatinine 1.04 H, Estim Creat Clear Calc 52.68, Est GFR (MDRD) Af Amer 76, Est GFR (MDRD) Non-Af 63, BUN/Creatinine Ratio 19.2, Glucose 91, Calcium 8.8, Total Bilirubin 0.40, AST 25, ALT 21, Alkaline Phosphatase 84, Troponin I < 0.015, Total Protein 6.8, Albumin 3.2, Globulin 3.6, Albumin/Globulin Ratio 0.9, Lipase 80, TSH 2.65 08/07/20 20:35: Lactic Acid 2.2 H* 08/07/20 22:50: POC Glucose 104 Assessment/Plan All Active Problems Hypotension (Acute) Lactic acidosis (Acute) Sinus bradycardia (Acute) Collapse (Acute) Upper abdominal pain of unknown etiology (Acute) Syncope and collapse (Acute) 1. Syncope and collapse with bradycardia -Admit to PCU for cardiac monitoring -Echo in a.m. -Trend cardiac enzymes overnight -Check magnesium and phosphorus level -CBC, CMP, PT/INR in a.m. -Consult cardiology -Aspirin 81 mg p.o. daily 2. Abdominal pain -CT shows no acute changes. -UA ordered 3. Left upper arm pain -Venous duplex ordered to rule out DVT as area is slightly red and bruised, however this could be attributed to patient moving rocks in garden 4. Diabetes mellitus type 1 -Spoke with parents regarding patient use of insulin pump, parents will remove insulin pump while patient is hospitalized. -AC at bedtime blood sugars with sliding scale insulin ordered 5. Hypothyroidism -TSH 2.65, continue current Synthroid regimen 6. Lactic acidosis -Initial level 2.2 in ER, received 500 mL bolus -Normal saline 100 mL/h ordered -Recheck per policy 7. Trisomy 21 DVT prophylaxis-not indicated This patient was seen by Roya Pham NP-C under the supervision of Dr. Hopson.
[2020-08-07 23:34] VITALS: BMI 32.4
[2020-08-07] MEDS: 0.9% Normal Saline 1,000 ML 100 ML IV (23:54)
[2020-08-07] MEDS: 0.9% Saline Lock 10 ML Syringe IV (23:54)
[2020-08-07 23:57] VITALS: PULSE 62
[2020-08-08] VITALS (23 sets, daily range): BP systolic 56–120; BP diastolic 27–69; PULSE 55–102; RESP 12–18; TEMP 36.3–37.3; O2SAT 94–100
[2020-08-08 00:06] LABS: Bedside Glucose 132 mg/dL (70-110)
[2020-08-08 00:43] LABS: Reflex Lactate? Y
[2020-08-08 01:10] LABS: International Normalized Ratio 1.1; Prothrombin Time (Protime)PT. 13.5 SECONDS (11.7-14.9)
[2020-08-08 01:11] LABS: Partial Thromboplast Time 30.2 Seconds (24.1-36.2)
[2020-08-08 01:26] LABS: Magnesium 2.1 mg/dL (1.6-2.6); Phosphorus 3.5 mg/dL (2.5-4.9)
[2020-08-08 03:19] LABS: Bacteria 0 SEEN /hpf (None Seen); Mucous, Urine 0 SEEN /hpf (<or=2+); Red Blood Cells-Urine 0 SEEN /hpf (0-5); White Blood Cells 0 SEEN /hpf (0-5)
[2020-08-08 03:20] LABS: Color, Urine Yellow (Yellow); Glucose, Dipstick Normal (Normal); Ketone-Dipstick 50 mg/dl (Negative); Leukocyte Esterase-Dipstick Negative /ul (Negative); Nitrite-Dipstick Negative (Negative); Occult Blood-Urine Negative /ul (Negative); Protein-Dipstick Negative (Negative); Urine Bilirubin Dipstick Negative (Negative); Urine Clarity Clear (Clear); Urine Urobilinogen Normal (Normal); Urine pH 6.5 (5.0 - 8.0)
[2020-08-08 03:27] LABS: Squamous Epithelial Cells - UA 0-5 SEEN /hpf (5-10)
[2020-08-08 04:46] LABS: Bedside Glucose 272 mg/dL (70-110)
[2020-08-08 05:03] LABS: Absolute Lymphocyte Count 1.95 X10^3/uL (0.83-4.51); Absolute Neutrophil Count 3.6 X10^3/uL (2.0-7.7); Basophil# 0.04 X10^3/uL; Basophil% 0.7 % (0-1); Eosinophil# 0.07 X10^3/uL; Eosinophils% 1.1 % (0-5); Hemoglobin 13.8 g/dL (12.0-15.0); Lymphocyte # 1.95 X10^3/ul (4.0); Lymphocyte % 31.8 % (19-41); Mean Corp Hgb Conc 33.7 g/dL (32-36); Mean Corpuscular Hgb 33.7 pg (27.0-32.0); Mean Platelet Vol. 10.2 fl (6.2-12.0); Monocyte# 0.42 X10^3/uL; Monocyte% 6.9 % (0-10); NRBC Flagged by Analyzer 0 % (0-5); Neutrophil # 3.63 X10^3/uL (2.7-7.7); Neutrophil % 59.2 % (47-70); Platelet Count 241 K/mm3 (150-450); RBC Distribution Width CV 12.4 % (11.6-14.6); RBC Distribution Width SD 45.4 fl (35.1-43.9); White Blood Count 6.1 K/mm3 (4.4-11.0)
[2020-08-08 05:13] LABS: International Normalized Ratio 1.1
[2020-08-08] MEDS: Ondansetron 4 MG/2 ML Vial IV (05:28)
[2020-08-08] MEDS: Levothyroxine 25 MCG TABLET PO (05:34)
[2020-08-08 05:39] LABS: ALB/GLOB Ratio 0.8 RATIO (0.9-2.4); AST(SGOT) 22 U/L (15-37); Alanine Aminotransfer ALT/SGPT 17 U/L (13-56); Albumin, Serum 2.6 g/dL (3.2-5.0); Alkaline Phosphatase 79 U/L (45-117); Anion Gap 8 (5-15); BUN 19 mg/dL (7-18); BUN/Creat Ratio 22.1 RATIO (10-20); Calcium,Total 8.4 mg/dL (8.5-10.1); Chloride 103 mmol/L (98-107); Creatinine, Serum 0.86 mg/dL (0.55-1.02); EST Glomerular Filtration Rate 79 mL/min (>60); Est Glom Filt Rate - Afr Amer 95 mL/min (>60); Estimated Creatinine Clearance 63.71 ml/min; Globulin 3.3 g/dL (2.2-4.2); Glucose 286 mg/dL (74-106); Potassium 4.8 mmol/L (3.5-5.1); Protein, Total 5.9 g/dL (6.4-8.2); Sodium Level 133 mmol/L (136-145)
[2020-08-08] MEDS: Acetaminophen 325 MG Tablet 650 MG PO (05:48)
[2020-08-08] MEDS: 0.9% Normal Saline 1,000 ML 999 ML IV ×3 (05:49→07:33)
--- NOTE | 2020-08-08 05:55 | ECHOD_ITS ---
Reason For Study: BRADYCARDIA, SYNCOPE Procedure This was a 2D Doppler, Color Flow transthoracic echocardiogram. Exam performed portable in patient room. Left Ventricle Normal LV size. Probable membranous VSD. Left ventricular systolic function is normal. The estimated ejection fraction is 65 %. No regional wall motion abnormalities noted. Right Ventricle Normal RV size. Normal systolic function. Atria Normal left atrium. Normal right atrium. Mitral Valve Normal mitral valve. Tricuspid Valve Normal tricuspid valve. Aortic Valve Normal aortic valve. Trisinus/trileaflet aortic valve. Pulmonic Valve Normal pulmonic valve. Great Vessels Normal aortic root. The pulmonary artery is normal size. Normal inferior vena cava. Pericardium/Pleural No pericardial effusion. Medication Performed a rapid injection of agitated mix of 9 cc saline and 1cc air to assess for atrial septal defect. MMode/2D Measurements & Calculations LVIDd: 4.5 cm IVSd: 0.88 cm Ao root diam: 2.8 cm LVIDs: 3.0 cm LVPWd: 0.89 cm RVDd: 3.3 cm FS: 33.6 % LAV(MOD-bp): 36.2 ml LVAd ap4: 29.7 cm2 SV(MOD-sp4): 59.0 ml LAV(MOD-bp) Indexed: 21.0 ml/m2 EDV(MOD-sp4): 86.7 ml LAV(MOD-sp2): 31.0 ml EDV(sp4-el): 87.5 ml LAV(MOD-sp4): 37.2 ml LVAs ap4: 14.8 cm2 ESV(MOD-sp4): 27.7 ml ESV(sp4-el): 26.5 ml EF(MOD-sp4): 68.0 % EF(sp4-el): 69.7 % SV(sp4-el): 61.1 ml LA A4 area: 16.2 cm2 LA dimension(2D): 2.6 cm RA A4 area: 13.5 cm2 Time Measurements MV dec time: 0.17 sec Doppler Measurements & Calculations MV E max adarsh: 124.5 cm/sec Lat Peak E' Adarsh: 15.4 cm/sec Med Peak E' Adarsh: 12.3 cm/sec MV A max adarsh: 114.4 cm/sec E/E' lat: 8.1 E/E' med: 10.2 MV E/A: 1.1 Ao V2 max: 208.7 cm/sec LV V1 max: 173.5 cm/sec PA V2 max: 168.2 cm/sec Ao max P.4 mmHg LV V1 max P.0 mmHg Ao V2 mean: 164.3 cm/sec Ao mean P.7 mmHg Ao V2 VTI: 36.4 cm Interpretation Summary Normal LV size. Left ventricular systolic function is normal. The estimated ejection fraction is 65 %. Probable membranous VSD Ordering Physician: Roya Pham Referring Physician: ARIADNA ACOSTA Performed By: Randi Erickson, NAA, RVT
[2020-08-08] MEDS: proCHLORPERazine 10 MG/2 ML Vial IV (06:17)
--- NOTE | 2020-08-08 06:43 | PCM.HOSP.N ---
Hospitalist Note Patient with ongoing RLQ pain, rating 6/10, discussed ED CT with Surgery, Dr. Kimble who will also evaluate patient, will obtain CT A/P repeat with oral contrast to be cautious. Patient notably orthostatic, administering 2L NS and will continue to closely monitor BP. If further issues with hypotension, not responsive to IVFs may necessitate ICU transfer.
[2020-08-08 06:46] LABS: Bedside Glucose 321 mg/dL (70-110)
[2020-08-08] MEDS: Insulin Lispro 100 UNIT/ML INSULN.PEN SC ×5 (06:55→20:37)
--- NOTE | 2020-08-08 07:53 | CT_ITS ---
STUDY: CT ABDOMEN AND PELVIS WITHOUT CONTRAST REASON FOR EXAM: Female, 40 years old. Abdominal pain RADIATION DOSAGE (If Supplied By Facility): CTDIvol = ( 10.50 ) mGy, DLP = ( 519.26 ) mGycm TECHNIQUE: Transaxial images were obtained from the dome of the diaphragm to the symphysis pubis with oral contrast, and without intravenous contrast. Sagittal and coronal images were reconstructed. Individualized dose optimization techniques were used for this CT. COMPARISON: 08/07/20 FINDINGS: Evaluation of the abdominal viscera is limited in the absence of intravenous contrast. The visualized lung bases are clear. The visualized portions of the heart and pericardium are within normal limits. There are no calcified gallstones present. The liver demonstrates an unremarkable unenhanced appearance. The spleen is normal in size. The pancreas demonstrates an unremarkable unenhanced appearance. The adrenal glands are within normal limits. There are no obstructing renal or ureteral stones. There is no hydronephrosis. Excreted contrast noted in the collecting systems and urinary bladder Normal visualized stomach. There is no bowel obstruction or inflammation. Again noted is a large amount of stool in the colon. The appendix is not visualized. The aorta is normal in caliber. There is a stable high density soft tissue nodule in the region of the cervix. There is no abdominal or pelvic free air, free fluid, fluid collection or lymphadenopathy. There are no destructive osseous lesions. CT/Abdomen/Pel W ORAL Cont Only IMPRESSION: No bowel obstruction or inflammation. Constipation. Appendix not identified. No obstructing urinary calculi. No hydronephrosis. Excretion contrast is noted in the collecting systems and urinary bladder. Status post hysterectomy. Stable high-density nodule in the cervix which may represent a complex nabothian cyst. Indicated, further evaluation with ultrasound can be performed. Electronically Signed: Dhruv Dietrich MD at 10:36 EDT Tel , Service support ,
--- NOTE | 2020-08-08 08:01 | NURSING ---
Called mom to give her an update on pt and let her know that pt is requesting her to come in and be with her. Updated mom on pt status and plan for abdominal CT w/ contrast. EDNA Mtz
[2020-08-08] MEDS: 0.9% Normal Saline 1,000 ML 150 ML IV ×3 (08:28→22:48)
[2020-08-08 08:30] LABS: Lactic Acid 1.1 mmol/L (0.4-1.9)
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
[2020-08-08] MEDS: Bisacodyl 10 MG Suppository RC (08:41)
--- NOTE | 2020-08-08 09:24 | NURSING ---
CT notified that pt finished drinking her bottle of contrast.
[2020-08-08 11:46] LABS: Bedside Glucose 258 mg/dL (70-110)
[2020-08-08] MEDS: Aspirin 81 MG TAB.CHEW PO (12:57)
[2020-08-08] MEDS: Polyethylene Glycol 3350 17 GM PACKET PO (12:57)
[2020-08-08] MEDS: Cosyntropin 0.25 MG in 0.9% Normal Saline (Pres. free 1 ML 30 MG IV (13:33)
--- NOTE | 2020-08-08 15:10 | PN_ITS ---
Patient Problems: Active and Suspected Problems Hypotension (Acute) Lactic acidosis (Acute) Sinus bradycardia (Acute) Collapse (Acute) Upper abdominal pain of unknown etiology (Acute) Syncope and collapse (Acute) Subjective: I was called this morning for persistent hypotension and considerable orthostatic hypotension. Patient was given fluid boluses and placed in Trendelenburg after which her blood pressure did improve and she was able to sit up she had continued abdominal pain which now has improved. Her CTs reveal significant constipation. The patient does indicate that she has daily bowel movements although the quantity and type of bowel movement is unknown at this time. Her mother is currently at bedside and states that she has had these passing out episodes in the past but nothing to this extreme. She is a type I diabetic and has been so since she was 15 years old. She typically utilizes an insulin pump at home but her parents took this off of her prior to her coming to the hospital. The patient indicates that she intermittently gets lightheadedness with positional changes. Vitals/I&O's: Vital Signs Temp Pulse Resp BP Pulse Ox 97.8 F 92 17 91/49 L 97 08/08/20 11:30 08/08/20 14:59 08/08/20 11:30 08/08/20 11:30 08/08/20 11:30 Oxygen Delivery Method Room Air Weight: 75.3 kg Body Mass Index (BMI) 32.4 Finger Stick Blood Glucose 132 Orthostatic Vital Signs Start: 08/08/20 05:35 Freq: q24h Status: Active Protocol: Activity Type Activity Date Activity User E-Sign Co-Sign Detail Recorded Client Recorded Date Recorded By Document 08/08/20 05:35 [id number] 08/08/20 05:39 TM 08/08/20 05:35 Orthostatic Vitals Standing -Blood Pressure (90/60-120/80 mm Hg) 56/27 L -Extremity Use Right Arm -Pulse Rate (60-100 beats/min) 101 H Sitting -Blood Pressure (90/60-120/80 mm Hg) 90/43 L -Extremity Use Right Arm -Pulse Rate (60-100 beats/min) 94 Lying -Blood Pressure (90/60-120/80 mm Hg) 100/51 L -Extremity Use Right Arm -Pulse Rate (60-100 beats/min) 94 Intake and Output for Last 24 Hours 08/06/20 08/07/20 08/08/20 23:59 23:59 23:59 Intake Total 500 / 620 3677.13 / 3677.13 Balance 500 / 620 3677.13 / 3677.13 General: Alert, Oriented x3, Cooperative, No apparent distress, Well developed, Well nourished, - - Middle-aged white female with trisomy 21 lying in bed, mother at bedside, currently appears comfortable at this time, and appropriately interactive HEENT: Atraumatic, PERRLA, EOMI, Normocephalic, EAC Clear, - - Face is erythematous with patchy dry spots Oral: Moist Mucosa, No Gingival or Mucosal Lesions/ Ulcerations, - - Mallampati 3-4 no thrush Neck: Supple, No JVD, Negative Carotid Bruits, Negative Hepatojugular Reflux, No Nuchal Rigidity, Trachea Midline, Thyroid Normal Size and Texture Lungs: Clear to auscultation, Normal air movement, No rhonchi, No wheeze, No rales Cardiovascular: Regular rate, Regular Rhythm, Normal S1, Normal S2, Murmur - 3 out of 6 systolic murmur loudest at right upper sternal border, no radiation to the carotids, No rub noted, No Gallop Abdomen: Bowel Sounds Present, Soft, Non-Distended, Guarding - Mild but improved Extremities: No clubbing, No cyanosis, No edema, Capillary Refill Less than 3 Seconds, Peripheral Pulses Normal Skin: No rashes, No breakdown Musculoskeletal: No Tenderness to Palpation of Joints or Extremities, No Muscle Wasting Lymphatic: No Cervical, Supraclavicular, or Inguinal Adenopathy Neurological: Cranial nerves II-XII grossly intact, Deep Tendon Reflexes 2+/4 and Symmetrical, Neuro grossly intact, Muscle tone normal, Sensory exam intact to light touch and pain, Coordination normal Psych/Mental Status: Normal Affect, Appropriate Laboratory Results 08/07/20 20:35: WBC 5.5, RBC 4.24, Hgb 14.0, Hct 42.2, MCV 99.5 H, MCH 33.0 H, MCHC 33.2, RDW Std Deviation 44.2 H, RDW Coeff of Lamine 12.1, Plt Count 244, MPV 10.0, Immature Gran % (Auto) 0.400, Neut % (Auto) 55.4, Lymph % (Auto) 31.3, [place] % (Auto) 10.0, Eos % (Auto) 2.2, Baso % (Auto) 0.7, Absolute Neuts (auto) 3 .0, Absolute Lymphs (auto) 1.72, Nucleated RBC % 0 08/07/20 20:35: Sodium 136, Potassium 3.6, Chloride 102, Carbon Dioxide 26.0, Anion Gap 8, BUN 20 H, Creatinine 1.04 H, Estim Creat Clear Calc 52.68, Est GFR (MDRD) Af Amer 76, Est GFR (MDRD) Non-Af 63, BUN/Creatinine Ratio 19.2, Glucose 91, Calcium 8.8, Total Bilirubin 0.40, AST 25, ALT 21, Alkaline Phosphatase 84, Troponin I < 0.015, Total Protein 6.8, Albumin 3.2, Globulin 3.6, Albumin/Globulin Ratio 0.9, Lipase 80, TSH 2.65 08/07/20 20:35: Lactic Acid 2.2 H* 08/07/20 22:50: POC Glucose 104 08/07/20 23:57: POC Glucose 132 H 08/08/20 00:50: PT 13.5, INR 1.1, APTT 30.2 08/08/20 00:50: Phosphorus 3.5, Magnesium 2.1, Troponin I < 0.015 08/08/20 00:50: Lactic Acid 1.0 08/08/20 03:08: Urine Color Yellow, Urine Clarity Clear, Urine pH 6.5, Ur Specific [place] 1.010, Urine Protein Negative, Urine Glucose (UA) Normal, Urine Ketones 50 H, Urine Occult Blood Negative, Urine Nitrite Negative, Urine Bilirubin Negative, Urine Urobilinogen Normal, Ur Leukocyte Esterase Negative, Urine RBC 0 SEEN, Urine WBC 0 SEEN, Ur Squamous Epith Cells 0-5 SEEN, Urine Bacteria 0 SEEN, Urine Mucus 0 SEEN 08/08/20 04:30: WBC 6.1, RBC 4.10 L, Hgb 13.8, Hct 41.0, MCV 100.0 H, MCH 33.7 H , MCHC 33.7, RDW Std Deviation 45.4 H, RDW Coeff of Lamine 12.4, Plt Count 241, MPV 10.2, Immature Gran % (Auto) 0.300, Neut % (Auto) 59.2, Lymph % (Auto) 31.8, [place] % (Auto) 6.9, Eos % (Auto) 1.1, Baso % (Auto) 0.7, Absolute Neuts (auto) 3.6, Absolute Lymphs (auto) 1.95, Nucleated RBC % 0 08/08/20 04:30: Sodium 133 L, Potassium 4.8, Chloride 103, Carbon Dioxide 22.0, Anion Gap 8, BUN 19 H, Creatinine 0.86, Estim Creat Clear Calc 63.71, Est GFR (MDRD) Af Amer 95, Est GFR (MDRD) Non-Af 79, BUN/Creatinine Ratio 22.1 H, Glucose 286 H, Calcium 8.4 L, Total Bilirubin 0.60, AST 22, ALT 17, Alkaline Phosphatase 79, Total Protein 5.9 L, Albumin 2.6 L, Globulin 3.3, Albumin/Globulin Ratio 0.8 L 08/08/20 04:30: PT 14.0, INR 1.1 08/08/20 04:30: Troponin I < 0.015 08/08/20 04:39: POC Glucose 272 H 08/08/20 06:40: POC Glucose 321 H 08/08/20 07:54: Lactic Acid 1.1 08/08/20 11:26: POC Glucose 258 H 08/08/20 12:50: Cortisol Pending 08/08/20 14:05: Cortisol Pending 08/08/20 14:38: Cortisol Pending Current Medications Acetaminophen (Acetaminophen 325 Mg Tablet) 650 mg PO Q6H PRN PRN PRN Reason: Pain Score 1-10/Temp > 100.7 F Last Admin: 08/08/20 05:48 Dose: 650 mg Documented by: Al Hydroxide/Mg Hydroxide (Mag Hydrox/Al Hydrox/Simeth 30 Ml Udc) 30 ml PO Q6H PRN PRN PRN Reason: Gastric Burning Aspirin (Aspirin 81 Mg Tab.Chew) 81 mg PO DAILY@0800 [facility] Last Admin: 08/08/20 12:57 Dose: 81 mg Documented by: Bisacodyl (Bisacodyl 10 Mg Suppository) 10 mg RC DAILY PRN PRN PRN Reason: Constipation Last Admin: 08/08/20 08:41 Dose: 10 mg Documented by: Dextrose (Dextrose 50%-Water 25 Gm/50 Ml Disp.Syrin) 0 gm IV X1 PRN; Protocol PRN Reason: Hypoglycemia Docusate Sodium (Docusate Sodium 100 Mg Capsule) 200 mg PO BID PRN PRN PRN Reason: Constipation Glucagon (Glucagon 1 Mg/Ml Syringe) 1 mg IM .X1 PRN PRN Reason: Hypoglycemia Pantoprazole Sodium 40 mg/ (Sodium Chloride) 110 mls @ 330 mls/hr IV Q12 [facility] Last Infusion: 08/08/20 08:24 Dose: Infused Documented by: Sodium Chloride () 1,000 mls @ 150 mls/hr IV .Q6H40M [facility] Last Infusion: 08/08/20 10:46 Dose: 150 mls/hr Documented by: Piperacillin Sod/Tazobactam (Sod 3.375 gm/ Sodium Chloride) 50 mls @ 12.5 mls/hr IV Q8 [facility] Last Admin: 08/08/20 13:56 Dose: 12.5 mls/hr Documented by: Insulin Glargine (Insulin Glargine 100 Units/Ml Pen) 10 units SC BREAKFAST [facility] Last Admin: 08/08/20 09:07 Dose: 10 u Documented by: Insulin Human Lispro (Insulin Lispro 100 Unit/Ml Insuln.Pen) 4 unit SC TIDAC [facility] Insulin Human Lispro (Insulin Lispro 100 Unit/Ml Insuln.Pen) 0 unit SC ACHS [facility]; Protocol Levothyroxine Sodium (Levothyroxine 25 Mcg Tablet) 25 mcg PO MoTuWeThFr@0600 [facility] Last Admin: 08/08/20 05:34 Dose: 25 mcg Documented by: Levothyroxine Sodium (Levothyroxine 50 Mcg Tablet) 50 mcg PO SuSa@0600 [facility] Melatonin (Melatonin 3 Mg Tablet) 3 mg PO QHS PRN PRN PRN Reason: INSOMNIA Midodrine (Midodrine Hcl 5 Mg Tablet) 10 mg PO 0800,1300 [facility] Morphine Sulfate (Morphine 2 Mg/Ml Syringe) 1 - 2 mg IV Q4H PRN PRN PRN Reason: Pain Score 4-5 Morphine Sulfate (Morphine 2 Mg/Ml Syringe) 2 - 4 mg IV Q3H PRN PRN PRN Reason: Pain Score 6-10 Ondansetron HCl (Ondansetron 4 Mg/2 Ml Vial) 4 mg IV Q8H PRN PRN PRN Reason: NAUSEA/VOMITING Last Admin: 08/08/20 05:28 Dose: 4 mg Documented by: Oxycodone HCl (Oxycodone 5 Mg Tablet) 5 mg PO Q4H PRN PRN PRN Reason: Pain Score 4-5 Polyethylene Glycol (Polyethylene Glycol 3350 17 Gm Packet) 17 gm PO DAILY [facility] Last Admin: 08/08/20 12:57 Dose: 17 gm Documented by: Prochlorperazine Edisylate (Prochlorperazine 10 Mg/2 Ml Vial) 10 mg IV Q4H PRN PRN PRN Reason: nausea, emesis Last Admin: 08/08/20 06:17 Dose: 10 mg Documented by: Sodium Chloride (0.9% Saline Lock 10 Ml Syringe) 10 - 40 ml IV UD PRN PRN Reason: SALINE FLUSH Last Admin: 08/07/20 23:54 Dose: 10 ml Documented by: STROKE Vital Signs/Narrative: Vital Signs Temp Pulse Resp BP Pulse Ox 08/08/20 14:59 92 08/08/20 11:30 97.8 F 98 17 91/49 L 97 Medical Necessity - Tobacco Use Smoking Status: Never smoker Assessment/Plan All Active Problems Hypotension (Acute) Lactic acidosis (Acute) Sinus bradycardia (Acute) Collapse (Acute) Upper abdominal pain of unknown etiology (Acute) Syncope and collapse (Acute) Syncopal event -Appears to be related to positional hypotension -Awaiting echo -Fluid boluses continue -Per discussion with mother this has happened in the past but not to the severity -Prone and negative x3 Persistent positional hypotension Patient has had type 1 diabetes when she was 15 years old -TSH was within normal limits -Check Cortrosyn stim test -Unable to obtain an inpatient tilt table test -Echocardiogram pending -Midodrine 10 mg twice daily at 8 AM and 1 PM added -Possibility of autonomic dysfunction related to long-term type 1 diabetes is certainly at the top of the differential Lactic acidosis Resolved Pseudohyponatremia -A.m. blood sugar was 286 -Repeat BMP in a.m. suspect with better blood sugar control sodium should improve Sinus bradycardia -Resolved BRANDYN -Resolving with hydration -Repeat BMP in a.m. Right lower quadrant pain -Patient has some chronic abdominal issues per discussion with mother -CT indicates she has some constipation -Continue bowel regimen and encourage hydration -Continue to monitor -Appreciate surgical input Hypothyroidism -Continue levothyroxine -TSH was within normal limits Left upper extremity pain -No complaints at this time -We will reevaluate tomorrow -Coags within normal limits -Awaiting a left upper extremity duplex DM-1 -Typically has an insulin pump at baseline but removed prior to admission Blood sugars markedly elevated this morning Lantus 10 units added in the a.m. -Add 4 units with meals now that she is able to be on a p.o. diet -Switch diet to carb controlled Continue blood glucose monitoring before meals and at bedtime -Low-dose sliding scale before meals and at bedtime Trisomy 21 -No acute issues DVT prophylaxis -SCDs -Prophylactic Lovenox CODE STATUS -Full code Inpatient E&M: 99015 Subs Hosp L3
[2020-08-08 16:35] LABS: Bedside Glucose 357 mg/dL (70-110)
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
[2020-08-08 21:40] LABS: Bedside Glucose 444 mg/dL (70-110)
[2020-08-09] VITALS (7 sets, daily range): BP systolic 87–123; BP diastolic 51–83; PULSE 59–84; RESP 18; TEMP 36.2–36.6; O2SAT 95–97
[2020-08-09] MEDS: 0.9% Normal Saline 1,000 ML 150 ML IV (05:33)
[2020-08-09] MEDS: Levothyroxine 25 MCG TABLET PO (06:29)
[2020-08-09 06:40] LABS: Absolute Lymphocyte Count 2.52 X10^3/uL (0.83-4.51); Absolute Neutrophil Count 2.5 X10^3/uL (2.0-7.7); Basophil# 0.05 X10^3/uL; Basophil% 0.9 % (0-1); Eosinophil# 0.06 X10^3/uL; Eosinophils% 1.1 % (0-5); Hemoglobin 11.2 g/dL (12.0-15.0); Lymphocyte # 2.52 X10^3/ul (4.0); Lymphocyte % 44.7 % (19-41); Mean Corp Hgb Conc 32.9 g/dL (32-36); Mean Corpuscular Hgb 33.7 pg (27.0-32.0); Mean Corpuscular Volume 102.4 fL (81-99); Mean Platelet Vol. 9.6 fl (6.2-12.0); Monocyte# 0.54 X10^3/uL; Monocyte% 9.6 % (0-10); NRBC Flagged by Analyzer 0 % (0-5); Neutrophil # 2.46 X10^3/uL (2.7-7.7); Neutrophil % 43.5 % (47-70); Platelet Count 217 K/mm3 (150-450); RBC Distribution Width CV 13.1 % (11.6-14.6); RBC Distribution Width SD 49.1 fl (35.1-43.9); Red Blood Count 3.32 M/mm3 (4.2-5.4); White Blood Count 5.6 K/mm3 (4.4-11.0)
[2020-08-09 07:07] LABS: Anion Gap 5 (5-15); BUN 14 mg/dL (7-18); BUN/Creat Ratio 15.3 RATIO (10-20); Calcium,Total 7.2 mg/dL (8.5-10.1); Chloride 109 mmol/L (98-107); Creatinine, Serum 0.92 mg/dL (0.55-1.02); EST Glomerular Filtration Rate 73 mL/min (>60); Est Glom Filt Rate - Afr Amer 88 mL/min (>60); Estimated Creatinine Clearance 59.55 ml/min; Glucose 293 mg/dL (74-106); Potassium 4.4 mmol/L (3.5-5.1); Sodium Level 137 mmol/L (136-145)
[2020-08-09] MEDS: Insulin Lispro 100 UNIT/ML INSULN.PEN SC ×2 (07:47→11:36)
[2020-08-09] MEDS: Aspirin 81 MG TAB.CHEW PO (07:49)
[2020-08-09] MEDS: Midodrine HCl 5 MG Tablet 10 MG PO ×2 (07:49→12:36)
[2020-08-09 07:55] LABS: Bedside Glucose 294 mg/dL (70-110)
[2020-08-09] MEDS: Polyethylene Glycol 3350 17 GM PACKET PO (07:57)
[2020-08-09] MEDS: 0.9% Saline Lock 10 ML Syringe IV (09:21)
--- NOTE | 2020-08-09 10:30 | CASEMGMT ---
Call to mother, Pam Tariq, and she states that pt's parents are her legal guardians. GARCIA form explanation done-mom/guardian voices understanding, and gives verbal ok for signature. Original to chart and copy to pt/parents. Mom voices no further questions/concerns/needs. SStalessandro BISHOP CM
[2020-08-09 11:15] LABS: Bedside Glucose 326 mg/dL (70-110)
[2020-08-09] MEDS: Insulin Lispro 100 UNIT/ML INSULN.PEN 8 UNIT SC (11:35)
--- NOTE | 2020-08-09 11:47 | DCINST_ITS ---
- Discharge Diagnoses Current Active Problems: Current Active and Chronic Problems History of type 1 diabetes mellitus (Chronic) Hypotension (Acute) Lactic acidosis (Acute) Sinus bradycardia (Acute) Collapse (Acute) Upper abdominal pain of unknown etiology (Acute) Syncope and collapse (Acute) Trisomy 21 (Chronic) HLD (hyperlipidemia) (Chronic) You will use the following diet at home:: Calorie/Carbohydrate Controlled (specify 1200, 1400, etc) Your food should be the consistency of: Regular Your liquids should be the consistency of: Regular/Thin Discharge Activity: Return to Normal Activity, No Restrictions Allergies/Adverse Reactions: Allergies No Known Allergies Allergy (Verified 08/07/20 20:16) Medications to take at Discharge Insulin Aspart [Novolog Vial] 1,000 unit CONT INF X1 08/01/18 Levothyroxine [Synthroid] 25 mcg PO MOTUWETHFR 08/01/18 Levothyroxine [Synthroid] 50 mcg PO SUSA 08/01/18 Midodrine HCl 5 mg PO BID #60 tablet 08/09/20 The following prescriptions were given: Midodrine HCl 5 mg PO BID #60 tablet Primary Care Physician: Kaylee Estrada DO [Primary Care Provider] - Please follow up with your Primary Care Physician in: 1 week Test Results: Test results from this visit will be discussed in further detail at your follow- up appointment, if applicable. Please Follow Up With: Mitchell Ledesma MD When: 2-4 weeks-please call for an appt
--- NOTE | 2020-08-09 11:49 | DS.PCM_ITS ---
Discharge Date and Diagnosis - Problem List Patient Problems: Active and Suspected Problems Hypotension (Acute) Lactic acidosis (Acute) Sinus bradycardia (Acute) Collapse (Acute) Upper abdominal pain of unknown etiology (Acute) Syncope and collapse (Acute) Date of Admission: 08/07/20 Date of Discharge: 08/09/20 - Primary Discharge Diagnosis Acute Problems: Active Problems Hypotension (Acute) Lactic acidosis (Acute) Sinus bradycardia (Acute) Collapse (Acute) Upper abdominal pain of unknown etiology (Acute) Syncope and collapse (Acute) - Secondary Discharge Diagnosis Chronic Problems: Chronic Problems History of type 1 diabetes mellitus (Chronic) system 21 (Chronic) Trisomy 21 (Chronic) hx of bowel obstruction (Chronic) HLD (hyperlipidemia) (Chronic) Hospital Course and Treatment Imaging Results: STUDY: CT ABDOMEN AND PELVIS WITH CONTRAST REASON FOR EXAM: Female, 40 years old. Abdominal pain. Unresponsive. RADIATION DOSAGE (If Supplied By Facility): CTDIvol = ( 19.67 ) mGy, DLP = ( 974.00 ) mGycm TECHNIQUE: Transaxial images were obtained from the dome of the diaphragm to the symphysis pubis without oral contrast. 100 ml of ISOVUE-370 contrast was administered. Sagittal and coronal images were reconstructed. Individualized dose optimization techniques were used for this CT. COMPARISON: 07/13/20 FINDINGS: This study is limited by patient motion and by streak artifact due to the patient''s arms being at her sides. The visualized lung bases are clear. The visualized portions of the heart and pericardium are within normal limits. There are no calcified gallstones present. The liver is within normal limits. There are no suspicious hepatic lesions. The spleen is normal in size. The pancreas is within normal limits. The adrenal glands are within normal limits. There are no renal or ureteral stones. There is no hydronephrosis. There are no focal renal lesions. Normal visualized stomach. There is no bowel obstruction or inflammation. There is a large amount of stool in the colon, consistent with constipation. The appendix is not visualized. The aorta is normal in caliber. There is no abdominal or pelvic free air, free fluid, fluid collection or lymphadenopathy. The patient is status post hysterectomy. There is a stable high density soft tissue nodule in the region of the cervix. There are no destructive osseous lesions. CT/Abdomen/Pelvis W IV Cont ONLY IMPRESSION: No bowel obstruction or inflammation. Constipation. Appendix not identified. Normal kidneys. No hydronephrosis. Status post hysterectomy. Stable high-density nodule in the cervix which may represent a complex nabothian cyst. Indicated, further evaluation with ultrasound can be performed. STUDY: CT ABDOMEN AND PELVIS WITHOUT CONTRAST REASON FOR EXAM: Female, 40 years old. Abdominal pain RADIATION DOSAGE (If Supplied By Facility): CTDIvol = ( 10.50 ) mGy, DLP = ( 519.26 ) mGycm TECHNIQUE: Transaxial images were obtained from the dome of the diaphragm to the symphysis pubis with oral contrast, and without intravenous contrast. Sagittal and coronal images were reconstructed. Individualized dose optimization techniques were used for this CT. COMPARISON: 08/07/20 FINDINGS: Evaluation of the abdominal viscera is limited in the absence of intravenous contrast. The visualized lung bases are clear. The visualized portions of the heart and pericardium are within normal limits. There are no calcified gallstones present. The liver demonstrates an unremarkable unenhanced appearance. The spleen is normal in size. The pancreas demonstrates an unremarkable unenhanced appearance. The adrenal glands are within normal limits. There are no obstructing renal or ureteral stones. There is no hydronephrosis. Excreted contrast noted in the collecting systems and urinary bladder Normal visualized stomach. There is no bowel obstruction or inflammation. Again noted is a large amount of stool in the colon. The appendix is not visualized. The aorta is normal in caliber. There is a stable high density soft tissue nodule in the region of the cervix. There is no abdominal or pelvic free air, free fluid, fluid collection or lymphadenopathy. There are no destructive osseous lesions. CT/Abdomen/Pel W ORAL Cont Only IMPRESSION: No bowel obstruction or inflammation. Constipation. Appendix not identified. No obstructing urinary calculi. No hydronephrosis. Excretion contrast is noted in the collecting systems and urinary bladder. Status post hysterectomy. Stable high-density nodule in the cervix which may represent a complex nabothian cyst. Indicated, further evaluation with ultrasound can be performed. Reason For Study: BRADYCARDIA, SYNCOPE Procedure This was a 2D Doppler, Color Flow transthoracic echocardiogram. Exam performed portable in patient room. Left Ventricle Normal LV size. Probable membranous VSD. Left ventricular systolic function is normal. The estimated ejection fraction is 65 %. No regional wall motion abnormalities noted. Right Ventricle Normal RV size. Normal systolic function. Atria Normal left atrium. Normal right atrium. Mitral Valve Normal mitral valve. Tricuspid Valve Normal tricuspid valve. Aortic Valve Normal aortic valve. Trisinus/trileaflet aortic valve. Pulmonic Valve Normal pulmonic valve. Great Vessels Normal aortic root. The pulmonary artery is normal size. Normal inferior vena cava. Pericardium/Pleural No pericardial effusion. Medication Performed a rapid injection of agitated mix of 9 cc saline and 1cc air to assess for atrial septal defect. MMode/2D Measurements & Calculations LVIDd: 4.5 cm IVSd: 0.88 cm Ao root diam: 2.8 cm LVIDs: 3.0 cm LVPWd: 0.89 cm RVDd: 3.3 cm FS: 33.6 % LAV(MOD-bp): 36.2 ml LVAd ap4: 29.7 cm2 SV(MOD-sp4): 59.0 ml LAV(MOD-bp) Indexed: 21.0 ml/m2 EDV(MOD-sp4): 86.7 ml LAV(MOD-sp2): 31.0 ml EDV(sp4-el): 87.5 ml LAV(MOD-sp4): 37.2 ml LVAs ap4: 14.8 cm2 ESV(MOD-sp4): 27.7 ml ESV(sp4-el): 26.5 ml EF(MOD-sp4): 68.0 % EF(sp4-el): 69.7 % SV(sp4-el): 61.1 ml LA A4 area: 16.2 cm2 LA dimension(2D): 2.6 cm RA A4 area: 13.5 cm2 Time Measurements MV dec time: 0.17 sec Doppler Measurements & Calculations MV E max adarsh: 124.5 cm/sec Lat Peak E' Adarsh: 15.4 cm/sec Med Peak E' Adarsh: 12.3 cm/sec MV A max adarsh: 114.4 cm/sec E/E' lat: 8.1 E/E' med: 10.2 MV E/A: 1.1 Ao V2 max: 208.7 cm/sec LV V1 max: 173.5 cm/sec PA V2 max: 168.2 cm/sec Ao max P.4 mmHg LV V1 max P.0 mmHg Ao V2 mean: 164.3 cm/sec Ao mean P.7 mmHg Ao V2 VTI: 36.4 cm Interpretation Summary Normal LV size. Left ventricular systolic function is normal. The estimated ejection fraction is 65 %. Probable membranous VSD General surgery Cardiology Operations: None Procedures: 2-D Echocardiogram Summary of Care Provided: Miss Tariq is a 40 year old WF with a past medical history of trisomy 21, DM-1 since she was 15 years old, her bowel obstruction, and hypothyroidism presented to the emergency department on 08/08/2019 1 in the evening after her parents found her unresponsive in her garden. Her parents were initially concerned since she is a type I diabetic that she had low blood sugars and they administered glucagon which did not resolve her symptoms the EMS reported that she had a initial heart rate of 40 and her fingerstick blood glucose level was 203. In the emergency department her mental status improved but her heart rate did drop down to the 30s with a jason of 35 and she also was noted to have hypotension. The patient also reported a several day history of left upper extremity discomfort which had resolved prior to discharge without intervention. She complained of abdominal pain in the right lower quadrant but per discussion with family this is not atypical for her. She had initial lactate of 2.2 and some BMP showed mild dehydration but her labs were otherwise unremarkable. Her initial troponin was less than 0.015 and her EKG showed sinus bradycardia with no evidence of acute ischemia. A CT with out contrast showed no obvious bowel obstruction or inflammation. She was given IV fluids in the emergency department and admitted to PCU. On the a.m. of 08/08/2020 I was called for a blood pressure of 79/50 and IV fluids were bolused and the patient was placed in Trendelenburg her blood pressure did eventually improve some although she remained hypotensive. Her orthostatic vitals that were done earlier that a.m. were markedly positive with her lying blood pressure being 100/51, her sitting blood pressure being 90/43 and her standing blood pressure 56/27. She was markedly symptomatic at that time with rising to standing position. A TSH and cortisol were done and were within normal limits. I attempted to order a tilt table test but appears we do not do these as an inpatient. A Cortrosyn stim test was negative. With her being a longtime type I diabetic my suspicion for autonomic dysfunction is high and after discussion with the parents that she has had episodes similar to this but not quite this severe in the recent past. She was placed on midodrine 5 mg at 8 AM and 1 PM. Her blood pressure improved and repeat orthostatics were improved. Her blood pressure on discharge was 106/68 and she was ambulated with physical therapy without any symptomatic lightheadedness or presyncopal spells. An echocardiogram was performed and showed a normal LV size with an EF of 65% and a probable membranous VSD was noted. There were no signs of reverse shunting on the present echocardiogram and she will follow up with cardiology as an outpatient for continued monitoring. Her CT showed constipation and she had 2-3 bowel movements during her admission and her abdominal pain resolved. Of note, a nabothian cyst was noted on her CAT scan and appeared to be stable I suspect this is related to her history of hysterectomy and recommendshe follow-up with her primary care physician. A prescription for Midrin was faxed to her pharmacy with 2 refills. She is to follow-up with her primary care physician in 1 to [address] Ledesma from cardiology in 4 to 6 weeks. Prior to discharge I spent time with both of her parents and Kaylee explaining what we found and what the overall plan was and what follow-up she would need in the future. All questions were answered. Discharge diagnoses Orthostatic hypotension-suspect autonomic dysfunction Lactic acidosis-resolved Abdominal pain secondary to constipation-resolved Membranous VSD Nabothian cervical cysts DM-1 Hypothyroidism History of bowel obstruction Trisomy 21 Discharge time greater than 35 minutes Patient Problems: Active and Suspected Problems Hypotension (Acute) Lactic acidosis (Acute) Sinus bradycardia (Acute) Collapse (Acute) Upper abdominal pain of unknown etiology (Acute) Syncope and collapse (Acute) Subjective: Patient states she is feeling much better today. Was able to ambulate with physical therapy and was asymptomatic. Blood pressures have improved. Patient states she is moved her bowels at least twice and is denying any abdominal pain at this time. She is anxious to go home and see her dogs. - Physical Exam Vitals/I&O's: Vital Signs Temp Pulse Resp BP Pulse Ox 97.2 F L 59 L 18 106/68 95 08/09/20 07:50 08/09/20 10:43 08/09/20 07:50 08/09/20 07:50 08/09/20 07:50 Oxygen Delivery Method Room Air Weight: 75.3 kg Body Mass Index (BMI) 32.4 Finger Stick Blood Glucose 132 Orthostatic Vital Signs Start: 08/08/20 05:35 Freq: q24h Status: Active Protocol: Activity Type Activity Date Activity User E-Sign Co-Sign Detail Recorded Client Recorded Date Recorded By Document 08/09/20 02:50 [facility] [id number] 08/09/20 03:09 [facility] 08/09/20 02:50 Orthostatic Vitals Standing -Blood Pressure (90/60-120/80) 96/66 -Extremity Use Right Arm -Pulse Rate (60-100) 84 Sitting -Blood Pressure (90/60-120/80) 87/51 L -Extremity Use Right Arm -Pulse Rate (60-100) 73 Lying -Blood Pressure (90/60-120/80) 123/83 H -Extremity Use Right Arm -Pulse Rate (60-100) 83 Intake and Output for Last 24 Hours 08/07/20 08/08/20 08/09/20 23:59 23:59 23:59 Intake Total 500 / 620 5799.63 / 5799.63 1440 / 1440 Output Total 200 / 200 Balance 500 / 620 5799.63 / 5599.63 1240 / 1240 General: Alert, Oriented x3, Cooperative, No apparent distress, Well developed, Well nourished, - - Patient lying in bed appears calm, pleasant, parents at bedside HEENT: Atraumatic, PERRLA, EOMI, Normocephalic, EAC Clear Oral: Moist Mucosa, No Gingival or Mucosal Lesions/ Ulcerations, - - Mallampati 3 no thrush Neck: Supple, Trachea Midline, Thyroid Normal Size and Texture Lungs: Clear to auscultation, Normal air movement, No rhonchi, No wheeze, No rales Cardiovascular: Regular rate, Regular Rhythm, Normal S1, Normal S2, No Ectopic Activity, Murmur - 2 out of 6 to 3 out of 6 systolic murmur, No rub noted, No Gallop Abdomen: Bowel Sounds Present, Soft, Non Tender, Non-Distended Extremities: No clubbing, No cyanosis, No edema, Capillary Refill Less than 3 Seconds, Peripheral Pulses Normal Skin: No rashes, No breakdown Musculoskeletal: No Tenderness to Palpation of Joints or Extremities, No Muscle Wasting Lymphatic: No Cervical, Supraclavicular, or Inguinal Adenopathy Neurological: Cranial nerves II-XII grossly intact, Neuro grossly intact, Muscle tone normal, Coordination normal Psych/Mental Status: Normal Affect, Appropriate Laboratory Results 08/08/20 12:50: Cortisol 13.20 08/08/20 14:05: Cortisol 23.40 H 08/08/20 14:38: Cortisol 27.00 H 08/08/20 15:51: POC Glucose 357 H 08/08/20 20:35: POC Glucose 444 H 08/09/20 06:30: WBC 5.6, RBC 3.32 L, Hgb 11.2 L, Hct 34.0 L, MCV 102.4 H, MCH 33.7 H, MCHC 32.9, RDW Std Deviation 49.1 H, RDW Coeff of Lamine 13.1, Plt Count 217, MPV 9.6, Immature Gran % (Auto) 0.200, Neut % (Auto) 43.5 L, Lymph % (Auto) 44.7 H, [place] % (Auto) 9.6, Eos % (Auto) 1.1, Baso % (Auto) 0.9, Absolute Neuts (auto) 2.5, Absolute Lymphs (auto) 2.52, Nucleated RBC % 0 08/09/20 06:30: Sodium 137, Potassium 4.4, Chloride 109 H, Carbon Dioxide 23.0, Anion Gap 5, BUN 14, Creatinine 0.92, Estim Creat Clear Calc 59.55, Est GFR (MDRD) Af Amer 88, Est GFR (MDRD) Non-Af 73, BUN/Creatinine Ratio 15.3, Glucose 293 H, Calcium 7.2 L 08/09/20 07:43: POC Glucose 294 H 08/09/20 11:02: POC Glucose 326 H Current Medications Acetaminophen (Acetaminophen 325 Mg Tablet) 650 mg PO Q6H PRN PRN PRN Reason: Pain Score 1-10/Temp > 100.7 F Last Admin: 08/08/20 05:48 Dose: 650 mg Documented by: Al Hydroxide/Mg Hydroxide (Mag Hydrox/Al Hydrox/Simeth 30 Ml Udc) 30 ml PO Q6H PRN PRN PRN Reason: Gastric Burning Aspirin (Aspirin 81 Mg Tab.Chew) 81 mg PO DAILY@0800 [facility] Last Admin: 08/09/20 07:49 Dose: 81 mg Documented by: Bisacodyl (Bisacodyl 10 Mg Suppository) 10 mg RC DAILY PRN PRN PRN Reason: Constipation Last Admin: 08/08/20 08:41 Dose: 10 mg Documented by: Dextrose (Dextrose 50%-Water 25 Gm/50 Ml Disp.Syrin) 0 gm IV X1 PRN; Protocol PRN Reason: Hypoglycemia Docusate Sodium (Docusate Sodium 100 Mg Capsule) 200 mg PO BID PRN PRN PRN Reason: Constipation Glucagon (Glucagon 1 Mg/Ml Syringe) 1 mg IM .X1 PRN PRN Reason: Hypoglycemia Pantoprazole Sodium 40 mg/ (Sodium Chloride) 110 mls @ 330 mls/hr IV Q12 [facility] Last Infusion: 08/09/20 09:50 Dose: Infused Documented by: Insulin Glargine (Insulin Glargine 100 Units/Ml Pen) 26 units SC BREAKFAST [facility] Last Admin: 08/09/20 07:46 Dose: 26 unit Documented by: Insulin Human Lispro (Insulin Lispro 100 Unit/Ml Insuln.Pen) 0 unit SC ACHS [facility]; Protocol Last Admin: 08/09/20 11:36 Dose: 8 u Documented by: Insulin Human Lispro (Insulin Lispro 100 Unit/Ml Insuln.Pen) 8 unit SC TIDAC [facility] Last Admin: 08/09/20 11:35 Dose: 8 unit Documented by: Levothyroxine Sodium (Levothyroxine 25 Mcg Tablet) 25 mcg PO MoTuWeThFr@0600 [facility] Last Admin: 08/09/20 06:29 Dose: 25 mcg Documented by: Levothyroxine Sodium (Levothyroxine 50 Mcg Tablet) 50 mcg PO SuSa@0600 [facility] Melatonin (Melatonin 3 Mg Tablet) 3 mg PO QHS PRN PRN PRN Reason: INSOMNIA Midodrine (Midodrine Hcl 5 Mg Tablet) 10 mg PO 0800,1300 [facility] Last Admin: 08/09/20 07:49 Dose: 10 mg Documented by: Morphine Sulfate (Morphine 2 Mg/Ml Syringe) 1 - 2 mg IV Q4H PRN PRN PRN Reason: Pain Score 4-5 Morphine Sulfate (Morphine 2 Mg/Ml Syringe) 2 - 4 mg IV Q3H PRN PRN PRN Reason: Pain Score 6-10 Ondansetron HCl (Ondansetron 4 Mg/2 Ml Vial) 4 mg IV Q8H PRN PRN PRN Reason: NAUSEA/VOMITING Last Admin: 08/08/20 05:28 Dose: 4 mg Documented by: Oxycodone HCl (Oxycodone 5 Mg Tablet) 5 mg PO Q4H PRN PRN PRN Reason: Pain Score 4-5 Polyethylene Glycol (Polyethylene Glycol 3350 17 Gm Packet) 17 gm PO DAILY [facility] Last Admin: 08/09/20 07:57 Dose: 17 gm Documented by: Prochlorperazine Edisylate (Prochlorperazine 10 Mg/2 Ml Vial) 10 mg IV Q4H PRN PRN PRN Reason: nausea, emesis Last Admin: 08/08/20 06:17 Dose: 10 mg Documented by: Sodium Chloride (0.9% Saline Lock 10 Ml Syringe) 10 - 40 ml IV UD PRN PRN Reason: SALINE FLUSH Last Admin: 08/09/20 09:21 Dose: 10 ml Documented by: Discharge Activity: Return to Normal Activity, No Restrictions Home Medications: Medications to take at Discharge Insulin Aspart [Novolog Vial] 1,000 unit CONT INF X1 08/01/18 Levothyroxine [Synthroid] 25 mcg PO [id number] 08/01/18 Levothyroxine [Synthroid] 50 mcg PO SUSA 08/01/18 Midodrine HCl 5 mg PO BID #60 tablet 08/09/20 Following Prescriptions Were Given to Patient: Midodrine HCl 5 mg PO BID #60 tablet Primary Care Physician: Kaylee Estrada DO [Primary Care Provider] - Please follow up with your Primary Care Physician in: 1 week Please Follow Up With: Mitchell Ledesma MD When: 2-4 weeks-please call for an appt Medical Necessity - Tobacco Use Smoking Status: Never smoker Meaningful Use Info Meaningful Use Diagnoses (Choose all that apply): None applicable Inpatient E&M: [facility] [facility]
== END 2020-08-09 11:48 | disposition home or self-care (01) ==
LOC: ED 21:52 → PCU 08-08 01:03
PROVIDERS: Nurse Practitioner Family; Admitting Provider Family Medicine; Emergency Provider Emergency Medicine; PCP Family Medicine; Visit Provider Internal Medicine
DX: I95.1 Orthostatic hypotension (principal); R00.1 Bradycardia, unspecified; T68.XXXA Hypothermia, initial encounter; Q90.9 Down syndrome, unspecified; E10.9 Type 1 diabetes mellitus without complications; E78.5 Hyperlipidemia, unspecified; R10.31 Right lower quadrant pain; R10.10 Upper abdominal pain, unspecified; M79.622 Pain in left upper arm; E03.9 Hypothyroidism, unspecified; E66.9 Obesity, unspecified; Z68.35 Body mass index [BMI] 35.0-35.9, adult; K59.00 Constipation, unspecified; Z79.899 Other long term (current) drug therapy; Z79.4 Long term (current) use of insulin; Q24.9 Congenital malformation of heart, unspecified
CPT/HCPCS: 36415; 74176; 74177; 80048; 80053; 81001; 82533; 82962; 83605; 83690; 83735; 84100; 84443; 84484; 85025; 85610; 85730; 93005; 93306; 96361; 96365; 96366; 96367; 96375; 97161; 97802; 99218; 99285; J7030; J7040; Q9957; Q9967; A4216; G0378; J0834; J2405; J3490

== ENCOUNTER 2021-08-20 13:55 | Outpatient (CLI) | payer MEDICARE, SELFPAY ==
[2021-08-20 15:18] LABS: ALB/GLOB Ratio 0.8 RATIO (0.9-2.4); AST(SGOT) 20 U/L (15-37); Alanine Aminotransfer ALT/SGPT 18 U/L (13-56); Alkaline Phosphatase 85 U/L (45-117); Anion Gap 2 (5-15); BUN 18 mg/dL (7-18); BUN/Creat Ratio 18.1 RATIO (10-20); Calcium,Total 8.5 mg/dL (8.5-10.1); Chloride 105 mmol/L (98-107); Cholesterol 163 mg/dL (200); EST Glomerular Filtration Rate 66 mL/min (>60); Est Glom Filt Rate - Afr Amer 80 mL/min (>60); Globulin 3.6 g/dL (2.2-4.2); Glucose 180 mg/dL (74-106); High Density Lipoprotein 58 mg/dL; Potassium 4.8 mmol/L (3.5-5.1); Protein, Total 6.6 g/dL (6.4-8.2); Sodium Level 135 mmol/L (136-145); T4 Free Direct 0.83 ng/dL (0.76-1.46); Thyroid Stim Hormone (TSH) 3.39 uIU/mL (0.358-3.74); Triglycerides 67 mg/dL; Very Low Density Lipoprotein 13 mg/dL (5-40)
== END 2021-08-20 23:59 | disposition home or self-care (01) ==
LOC: BIMLAB 13:57
PROVIDERS: PCP Family Medicine; Referring Provider Nurse Practitioner Family; Visit Provider Nurse Practitioner Family
DX: E10.649 Type 1 diabetes mellitus with hypoglycemia without coma (principal); E78.5 Hyperlipidemia, unspecified
CPT/HCPCS: 36415; 80053; 80061; 84439; 84443

== ENCOUNTER 2021-10-01 14:45 | Emergency (ER) | payer MEDICARE, MEDICAID, SELFPAY ==
[2021-10-01 14:49] VITALS: BP 104/63; PULSE 50; RESP 18; TEMP 36.4; O2SAT 97; BMI 30.4
--- NOTE | 2021-10-01 15:22 | EDS_ITS ---
HPI History of Present Illness Chief Complaint: Lower Extremity Injury Informant: patient and parent Narrative Narrative: Patient complains of left foot pain for about a day. She usually does not recall any specific injury or increased activity. She does have tri somy 21 and may not recall specifically something she did. But there was no major event. The pain is on the lateral aspect of the left foot, really near the proximal fifth metatarsal. It hurts to bear weight. Its much better if its not bearing weight or just elevated. It also hurts to press. There has been no swelling. No redness no erythema warmth no fevers. Sugars have been up and down but this is not new for the patient. She is not having numbness tingling burning pain. No other complaints. Other than this she feels fine. [facility] Medical History Bowel obstruction Diabetes History of type 1 diabetes mellitus HLD (hyperlipidemia) Hypoglycemia unawareness in type 1 diabetes mellitus Hypothyroidism Insulin pump titration Obesity Obesity Orthostatic hypotension Presence of insulin pump Sinus bradycardia Trisomy 21 Ventricular septal defect (VSD), membranous Home Medications midodrine 5 mg tablet 5 mg PO BID #180 tab 09/18/20 [Rx Last Taken Unknown] ascorbate calcium (vitamin C) 500 mg tablet 500 mg PO DAILY 12/24/20 [History Last Taken Unknown] cholecalciferol (vitamin D3) 125 mcg (5,000 unit) capsule 125 mcg PO DAILY 12/24/20 [History Last Taken Unknown] cinnamon bark 500 mg capsule 500 mg PO DAILY 12/24/20 [History Last Taken Unknown] glucagon 1 mg solution for injection 1 mg SUBCUT ONCE ea 12/24/20 [History Last Taken Unknown] insulin pump cartridge #5 ea 12/24/20 [History Last Taken Unknown] multivitamin 1 tab PO DAILY 12/24/20 [History Last Taken Unknown] multivitamin with minerals 1 tab PO DAILY 12/24/20 [History Last Taken Unknown] blood-glucose meter,continuous #1 ea 01/02/21 [Rx Last Taken Unknown] levothyroxine 50 mcg tablet 50 mcg PO DAILY #112 tab 05/22/21 [Rx Last Taken Unknown] Humalog U-100 Insulin 100 unit/mL subcutaneous solution 100 unit SUBCUT DAILY #30 ml NS 08/19/21 [Rx Last Taken Unknown] flash glucose sensor #2 ea 08/19/21 [Rx Last Taken Unknown] OneTouch Ultra Test #250 ea NS 08/20/21 [Rx Last Taken Unknown] OneTouch Ultra2 Meter #1 ea NS 08/20/21 [Rx Last Taken Unknown] Allergy/AdvReac Type Severity Reaction Status Date / Time No Known Allergies Allergy Verified 10/01/21 14:48 Family History Father Hypertension Surgical History History of hysterectomy Social History Smoking Status: Never smoker ROS ROS ED Constitutional Constitutional ED: Denies chills or fever(s) ENT ENT ED: Denies rhinorrhea Cardiovascular Cardiovascular: Denies chest pain Respiratory/Chest Respiratory/Chest: Denies cough or dyspnea Gastrointestinal Gastrointestinal: Denies nausea or vomiting Musculoskeletal Musculoskeletal: Reports arthralgias and other Details: See history of present illness Integumentary Denies abscess, Abrasions or rash Neurologic Neurologic: Denies paresthesias or weakness Hematologic/Lymphatic Hematologic/Lymphatic: Denies easy bleeding or easy bruising Allergic/Immunologic Allergic/Immunologic ED: Denies urticaria EXAM Physical Exam Const Vital Signs: 10/01/21 14:49 Temperature 97.6 F L Temperature Source Temporal Pulse Rate 50 L Respiratory Rate 18 Blood Pressure 104/63 Blood Pressure Mean 76 Pulse Ox 97 Positive well nourished and well developed General Appearance ED: well developed and NAD HEENT Reports moist mucous membranes Chest Wall inspection of chest normal Resp normal respiratory effort and clear to auscultation bilaterally Cardio regular rate and regular rhythm GI non-tender Palpation: soft Back/Spine no CVA tenderness Extremity normal to inspection Extremity Narrative: Foot looks normal. No asymmetry. Both feet have a moderate amount of callus and fissuring of the skin. But there is absolutely no sign of infection anywhere. No moisture or break in the skin between her toes. No erythema warmth lymphangitic streaking or swelling. There is tenderness along the fifth metatarsal mostly proximally. Its not distally tender. No calcaneus tenderness. No ankle tenderness. Achilles is intact by palpation and Partida test. Overall the appearance of the foot is normal but there is tenderness along the proximal fifth metatarsal. Neuro Sensorium / Orientation: alert Skin Lesions: no lesions Rashes: no rashes MDM MDM MDM Narrative Medical decision making narrative: 4 view x-ray of the left foot looked at by me shows no sign of fracture dislocation, foreign body gas or abnormal swelling. Exam shows no sign of infection. I think this is likely musculoskeletal pain it is reproducible locally along the lateral aspect of the foot with palpation or motion. Ice rest Tylenol and time should resolve this. If she develops fevers, redness, swelling or other abnormalities she may need repeat evaluation. Discharge Plan Triage Chief Complaint: Lower Extremity Injury ED Provider: Devin Freeman Dx/Rx/DC Orders Clinical Impression: Acute pain of left foot Instructions: ED Foot Sprain Prescriptions: No Action midodrine 5 mg tablet 5 mg PO BID Qty: 180 RF: 3 Glucagon Emergency Kit (human) 1 mg recon soln 1 mg subcut ONCE RF: 0 (DME) Omnipod Dash 5 Pack Pod Cartridge See Rx Instructions ea .ROUTE .MEDSUPPLY Qty: 5 RF: 0 ascorbate calcium (vitamin C) 500 mg tablet 500 mg PO DAILY RF: 0 multivitamin [Daily Multi-Vitamin] Tablet 1 tab PO DAILY RF: 0 multivitamin with minerals [Hair,Skin and Nails] Tablet 1 tab PO DAILY RF: 0 cholecalciferol (vitamin D3) 125 mcg (5,000 unit) capsule 125 mcg PO DAILY RF: 0 cinnamon bark [Cinnamon] 500 mg capsule 500 mg PO DAILY RF: 0 levothyroxine 50 mcg tablet 50 mcg PO DAILY Qty: 112 RF: 3 (DME) blood-glucose meter [OneTouch Ultra2 Meter] Kit See Rx Instructions .ROUTE .MEDSUPPLY Qty: 1 RF: 0 (DME) OneTouch Ultra Test Strip See Rx Instructions .ROUTE .MEDSUPPLY Qty: 250 RF: 11 (DME) Dexcom G6 [employer]ologist Misc See Rx Instructions .ROUTE .MEDSUPPLY Qty: 1 RF: 0 (DME) FreeStyle [place] 2 Sensor Kit See Rx Instructions .ROUTE .MEDSUPPLY Qty: 2 RF: 6 insulin lispro [Humalog U-100 Insulin] 100 unit/mL solution 100 unit subcut DAILY Qty: 30 RF: 5 Primary Care Provider: Kaylee Estrada Referrals: Kaylee Estrada, [Primary Care Provider] - 3-5 Days Disposition Disposition: Home, Self Care
--- NOTE | 2021-10-01 15:37 | RAD_ITS ---
STUDY: X-RAY - LEFT FOOT CLINICAL: Female, 41 years old. pain TECHNIQUE: 3 view(s) of the foot. COMPARISON: None. FINDINGS: Normal talus, calcaneus, and tarsal bones. Normal visualized subtalar, talonavicular, calcaneocuboid, tarsal and tarsometatarsal articulations. Normal metatarsi. Normal metatarsophalangeal joint of the great toe. Normal tibial and fibular sesamoid bones. Normal interphalangeal joint of the great toe. Normal phalanges of the great toe. Normal second through fifth metatarsophalangeal joints. Normal interphalangeal joints and phalanges of the lesser toes. The soft tissue structures are unremarkable. RAD/Foot min 3 Views IMPRESSION: Normal x-ray examination of the foot. Electronically Signed: Gary Bro MD at 15:58 EDT ,
== END 2021-10-01 16:42 | disposition home or self-care (01) ==
LOC: ED 15:53
PROVIDERS: Emergency Provider Emergency Medicine; PCP Family Medicine; Visit Provider Emergency Medicine
DX: M79.672 Pain in left foot (principal); E10.9 Type 1 diabetes mellitus without complications; Z79.4 Long term (current) use of insulin; Q90.9 Down syndrome, unspecified; E78.5 Hyperlipidemia, unspecified; E03.9 Hypothyroidism, unspecified; E66.9 Obesity, unspecified; Z87.19 Personal history of other diseases of the digestive system; Z96.41 Presence of insulin pump (external) (internal); Z79.899 Other long term (current) drug therapy; Z68.30 Body mass index [BMI] 30.0-30.9, adult
CPT/HCPCS: 73630; 99282

== ENCOUNTER 2022-01-10 22:40 | Emergency (ER) | payer MEDICARE, MEDICAID, SELFPAY ==
[2022-01-10 22:41] VITALS: BP 93/48; PULSE 62; RESP 16; TEMP 37.7; O2SAT 98; BMI 30.4
[2022-01-10 23:14] VITALS: BP 108/61; PULSE 49; RESP 16; TEMP 37; O2SAT 98
--- NOTE | 2022-01-10 23:16 | EDS_ITS ---
HPI History of Present Illness Chief Complaint: Wound Informant: patient and parent Narrative Narrative: Patient presents with erythema warmth in the right side of her abdomen. She has been using a continuous glucose monitor and OmniPod for couple years. The last position that she placed the Omni pod got red and painful. She has had subjective fevers. She has some mild nausea. She has been sleeping more. Sugar was a little higher than normal. Is currently reading 193. She normally runs about 150-2 50 so this is good. However it was running higher earlier in the day. No drainage. No vomiting. PFSH [facility] Medical History Bowel obstruction Diabetes History of type 1 diabetes mellitus HLD (hyperlipidemia) Hypoglycemia unawareness in type 1 diabetes mellitus Hypothyroidism Insulin pump titration Obesity Obesity Orthostatic hypotension Presence of insulin pump Sinus bradycardia Trisomy 21 Ventricular septal defect (VSD), membranous Home Medications ascorbate calcium (vitamin C) 500 mg tablet 500 mg PO DAILY 12/24/20 [History Last Taken Unknown] cholecalciferol (vitamin D3) 125 mcg (5,000 unit) capsule 125 mcg PO DAILY 12/24/20 [History Last Taken Unknown] cinnamon bark 500 mg capsule (Cinnamon) 500 mg PO DAILY 12/24/20 [History Last Taken Unknown] insulin pump cartridge #5 ea 12/24/20 [History Last Taken Unknown] multivitamin (Daily Multi-Vitamin tablet) 1 tab PO DAILY 12/24/20 [History Last Taken Unknown] multivitamin with minerals (Hair,Skin and Nails tablet) 1 tab PO DAILY 12/24/20 [History Last Taken Unknown] blood-glucose meter,continuous (Dexcom G6 Radial Drill Operator [facility] [place]) #1 ea 01/02/21 [Rx Last Taken Unknown] flash glucose sensor (FreeStyle [place] 2 Sensor kit) #2 ea 08/19/21 [Rx Last Taken Unknown] OneTouch Ultra Test (blood sugar diagnostic) #250 ea 08/20/21 [Rx Last Taken Unknown] OneTouch Ultra2 Meter (blood-glucose meter) #1 ea 08/20/21 [Rx Last Taken Unknown] glucagon 1 mg solution for injection 1 mg subcut ONCE #2 ea 10/27/21 [Rx Last Taken Unknown] Humalog U-100 Insulin 100 unit/mL subcutaneous solution (insulin lispro) 100 unit subcut DAILY #90 mL 01/02/22 [Rx Last Taken Unknown] cephalexin 500 mg capsule 500 mg PO Q6 #40 caps 01/11/22 [Rx Last Taken Unknown] levothyroxine 50 mcg tablet 50 mcg PO DAILY 01/11/22 [History Last Taken Unknown] ondansetron 4 mg disintegrating tablet 4 mg PO Q8H PRN nausea and vomiting #10 tabs 01/11/22 [Rx Last Taken Unknown] Allergy/AdvReac Type Severity Reaction Status Date / Time vancomycin AdvReac Itching Verified 01/11/22 01:05 Family History Father Hypertension Surgical History History of hysterectomy Social History Smoking Status: Never smoker ROS ROS ED Constitutional Constitutional ED: Reports chills and subjective Eyes Eyes: Denies change in vision ENT ENT ED: Denies sore throat Cardiovascular Cardiovascular: Denies chest pain or palpitations Respiratory/Chest Respiratory/Chest: Denies cough or dyspnea Gastrointestinal Gastrointestinal: Reports nausea; Denies vomiting Musculoskeletal Musculoskeletal: Denies arthralgias or myalgias Integumentary Reports rash Neurologic Neurologic: Denies headache(s) Endocrine Endocrinology: Denies polydipsia or polyuria Hematologic/Lymphatic Hematologic/Lymphatic: Denies easy bleeding or easy bruising Allergic/Immunologic Allergic/Immunologic ED: Denies urticaria EXAM Physical Exam Const Vital Signs: 01/10/22 22:41 01/10/22 23:14 01/11/22 00:16 Temperature 99.9 F H 98.6 F 98.7 F Temperature Source Temporal Temporal Temporal Pulse Rate 62 49 L 93 Respiratory Rate 16 16 27 H Blood Pressure 93/48 L 108/61 105/64 Blood Pressure Mean 63 76 77 Pulse Ox 98 98 98 Oxygen Delivery Method Room Air Room Air Room Air Positive well nourished and well developed General Appearance ED: well developed and NAD HEENT Reports dry mucous membranes HEENT Narrative: Mildly dry mucous membrane Mouth ED: Yes dry mucous membranes Mouth: dry mucous membranes Eyes General Eye ED: Negative for scleral icterus Resp normal respiratory effort and clear to auscultation bilaterally Cardio regular rate and regular rhythm GI GI Narrative: His Dexcom 6 CGM on the left abdomen. She has OmniPod in the middle to right side. To the right of the OmniPod there is an erythematous area about 8 cm a round. It is indurated and mildly firm. It is not fluctuant. It is mildly tender there but not tender in other areas. This does look to be consistent with an infection. Extremity normal to inspection Neuro Neuro Narrative: Patient is awake alert and appropriate. Sensorium / Orientation: alert Psych mental status grossly normal Skin Skin Narrative: See above. MDM MDM MDM Narrative Medical decision making narrative: Patient blood pressure is good. She is now afebrile. Saturations are normal. She does not feel well but she does feel better. She is not nauseated. She would like to eat some Jell-O and to drink some water. We will get this for her. I would like to make sure she is able to eat and drink well. Her white count is elevated 15 3 which is consistent with infection. But hemoglobin and platelets are normal. Electrolytes show no marked abnormalities. Her glucose is reasonably well controlled at 146 which is evidently good for her. Lactate is negative. Acetone is negative. Patient started to get some burning throughout her body when we started vancomycin. The nurse then stopped this. Were not seeing a rash but I am concerned because her symptoms started with that. We will give her a dose of Zosyn here. As long as she can eat and drink we hope to be able to get her home. I did do bedside a superficial ultrasound. We went down to just over 4 cm. I see no sign of fluid collection. The tissue over the area of induration really looks about the same as the tissue around it. No abscess. No echogenic foreign body. Patient is drinking Diet Coke. She feels well. We will infuse Zosyn here. As long as there are no issues that develop we will get her home. We did talk with mom about returning with vomiting, high fevers worsening pain or any other concerns. Lab Data Attestation: I reviewed the patient's lab results. Labs: Laboratory Results - last 24 hr 01/10/22 01/10/22 01/10/22 23:30 23:30 23:30 WBC 15.3 H RBC 3.94 L Hgb 13.1 Hct 39.1 MCV 99.2 H MCH 33.2 H MCHC 33.5 RDW Std Deviation 45.4 H RDW Coeff of Lamine 12.3 Plt Count 234 MPV 10.7 Immature Gran % (Auto) 0.400 Neut % (Auto) 78.2 H Lymph % (Auto) 12.[address] % (Auto) 8.7 Eos % (Auto) 0.4 Baso % (Auto) 0.3 Absolute Neuts (auto) 11.9 H Absolute Lymphs (auto) 1.83 Nucleated RBC % 0 Sodium 135 L Potassium 4.1 Chloride 103 Carbon Dioxide 27.0 Anion Gap 5 BUN 10 Creatinine 0.95 Estim Creat Clear Calc 57.11 Est GFR (MDRD) Af Amer 84 Est GFR (MDRD) Non-Af 70 BUN/Creatinine Ratio 10.6 Glucose 146 H Lactic Acid Calcium 8.3 L Acetone Level NEGATIVE 01/10/22 23:30 WBC RBC Hgb Hct MCV MCH MCHC RDW Std Deviation RDW Coeff of Lamine Plt Count MPV Immature Gran % (Auto) Neut % (Auto) Lymph % (Auto) Lane % (Auto) Eos % (Auto) Baso % (Auto) Absolute Neuts (auto) Absolute Lymphs (auto) Nucleated RBC % Sodium Potassium Chloride Carbon Dioxide Anion Gap BUN Creatinine Estim Creat Clear Calc Est GFR (MDRD) Af Amer Est GFR (MDRD) Non-Af BUN/Creatinine Ratio Glucose Lactic Acid 1.0 Calcium Acetone Level Discharge Plan Triage Chief Complaint: Wound ED Provider: Devin Freeman Dx/Rx/DC Orders Clinical Impression: Cellulitis of abdominal wall, Leukocytosis Instructions: ED Cellulitis Prescriptions: New cephalexin [cephalexin] 500 mg capsule 500 mg PO Q6 Qty: 40 0RF ondansetron 4 mg tablet,disintegrating 4 mg PO Q8H PRN (Reason: nausea and vomiting) Qty: 10 0RF No Action (DME) Omnipod Dash 5 Pack Pod Cartridge See Rx Instructions .ROUTE .MEDSUPPLY Qty: 5 Rx Instructions: As directed ascorbate calcium (vitamin C) 500 mg tablet 500 mg PO DAILY multivitamin [Daily Multi-Vitamin] Tablet 1 tab PO DAILY multivitamin with minerals [Hair,Skin and Nails] Tablet 1 tab PO DAILY cholecalciferol (vitamin D3) 125 mcg (5,000 unit) capsule 125 mcg PO DAILY cinnamon bark [Cinnamon] 500 mg capsule 500 mg PO DAILY (DME) blood-glucose meter [OneTouch Ultra2 Meter] Kit See Rx Instructions .ROUTE .MEDSUPPLY Qty: 1 0RF Rx Instructions: As directed (DME) OneTouch Ultra Test Strip See Rx Instructions .ROUTE .MEDSUPPLY Qty: 250 11RF Rx Instructions: test 8 times daily levothyroxine 50 mcg tablet 50 mcg PO DAILY (DME) Dexcom G6 Radial Drill Operator Misc See Rx Instructions .ROUTE .MEDSUPPLY Qty: 1 0RF Rx Instructions: As directed (DME) FreeStyle [place] 2 Sensor Kit See Rx Instructions .ROUTE .MEDSUPPLY Qty: 2 6RF Rx Instructions: As directed glucagon 1 mg recon soln 1 mg subcut ONCE Qty: 2 6RF insulin lispro [Humalog U-100 Insulin] 100 unit/mL solution 100 unit subcut DAILY Qty: 90 1RF Primary Care Provider: Kaylee Estrada Referrals: Kaylee Estrada DO [Primary Care Provider] - 2 Days for wound check Disposition Disposition: Home, Self Care
[2022-01-10] MEDS: Ondansetron 4 MG/2 ML Vial IV (23:38)
[2022-01-10 23:54] LABS: Absolute Lymphocyte Count 1.83 X10^3/uL (0.83-4.51); Absolute Neutrophil Count 11.9 X10^3/uL (2.0-7.7); Basophil# 0.05 X10^3/uL; Basophil% 0.3 % (0-1); Eosinophil# 0.06 X10^3/uL; Eosinophils% 0.4 % (0-5); Hematocrit 39.1 % (37-47); Hemoglobin 13.1 g/dL (12.0-15.0); Lymphocyte # 1.83 X10^3/ul (0.83-4.51); Mean Corp Hgb Conc 33.5 g/dL (32-36); Mean Corpuscular Hgb 33.2 pg (27.0-32.0); Mean Corpuscular Volume 99.2 fL (81-99); Mean Platelet Vol. 10.7 fl (6.2-12.0); Monocyte# 1.32 X10^3/uL; Monocyte% 8.7 % (0-10); NRBC Flagged by Analyzer 0 % (0-5); Neutrophil # 11.94 X10^3/uL (2.7-7.7); Neutrophil % 78.2 % (47-70); Platelet Count 234 K/mm3 (150-450); RBC Distribution Width CV 12.3 % (11.6-14.6); RBC Distribution Width SD 45.4 fl (35.1-43.9); Red Blood Count 3.94 M/mm3 (4.2-5.4); White Blood Count 15.3 K/mm3 (4.4-11.0)
[2022-01-11] MEDS: Vancomycin IV 1,000 MG/200 ML BAG 200 MG IV (00:12)
[2022-01-11 00:15] LABS: Anion Gap 5 (5-15); BUN 10 mg/dL (7-18); BUN/Creat Ratio 10.6 RATIO (10-20); Calcium,Total 8.3 mg/dL (8.5-10.1); Chloride 103 mmol/L (98-107); Creatinine, Serum 0.95 mg/dL (0.55-1.02); EST Glomerular Filtration Rate 70 mL/min (>60); Est Glom Filt Rate - Afr Amer 84 mL/min (>60); Estimated Creatinine Clearance 57.11 ml/min; Glucose 146 mg/dL (74-106); Potassium 4.1 mmol/L (3.5-5.1); Sodium Level 135 mmol/L (136-145)
[2022-01-11 00:16] VITALS: BP 105/64; PULSE 93; RESP 27; TEMP 37.1; O2SAT 98
--- NOTE | 2022-01-11 01:04 | ED.RN ---
pt c/o burning sensation with vancomycin running. infusion stopped and md notified
[2022-01-11 01:05] VITALS: BP 109/60; PULSE 94; RESP 27; RESP 28; TEMP 37.1; O2SAT 95
[2022-01-11 01:48] VITALS: BP 92/69; PULSE 93; RESP 15; O2SAT 98
== END 2022-01-11 01:49 | disposition home or self-care (01) ==
PROVIDERS: Emergency Provider Emergency Medicine; PCP Family Medicine; Visit Provider Emergency Medicine
DX: L03.311 Cellulitis of abdominal wall (principal); E10.9 Type 1 diabetes mellitus without complications; Z79.4 Long term (current) use of insulin; E78.5 Hyperlipidemia, unspecified; E03.9 Hypothyroidism, unspecified; E66.9 Obesity, unspecified; Z96.41 Presence of insulin pump (external) (internal); Z79.899 Other long term (current) drug therapy; Z68.30 Body mass index [BMI] 30.0-30.9, adult
CPT/HCPCS: 99283; 80048; 82009; 83605; 85025; A4216; J2405

== ENCOUNTER 2022-01-12 09:50 | Inpatient (IN) | payer MEDICARE, MEDICAID, SELFPAY ==
[2022-01-12] VITALS (16 sets, daily range): BP systolic 91–122; BP diastolic 46–66; PULSE 45–94; RESP 16–20; TEMP 36.1–37.2; O2SAT 96–100; BMI 31.2; BMI 28.8
[2022-01-12 10:50] LABS: Absolute Lymphocyte Count 1.34 X10^3/uL (0.83-4.51); Absolute Neutrophil Count 15.4 X10^3/uL (2.0-7.7); Basophil# 0.07 X10^3/uL; Basophil% 0.4 % (0-1); Eosinophil# 0.09 X10^3/uL; Eosinophils% 0.5 % (0-5); Hematocrit 38.1 % (37-47); Hemoglobin 12.9 g/dL (12.0-15.0); Lymphocyte # 1.34 X10^3/ul (0.83-4.51); Lymphocyte % 7.2 % (19-41); Mean Corp Hgb Conc 33.9 g/dL (32-36); Mean Corpuscular Hgb 33.9 pg (27.0-32.0); Mean Platelet Vol. 10.9 fl (6.2-12.0); Monocyte# 1.59 X10^3/uL; Monocyte% 8.6 % (0-10); NRBC Flagged by Analyzer 0 % (0-5); Neutrophil # 15.36 X10^3/uL (2.7-7.7); Neutrophil % 82.6 % (47-70); POSITIVE DIFFERENTIAL YES; Platelet Count 261 K/mm3 (150-450); RBC Distribution Width CV 12.2 % (11.6-14.6); RBC Distribution Width SD 45.2 fl (35.1-43.9); Red Blood Count 3.81 M/mm3 (4.2-5.4); White Blood Count 18.6 K/mm3 (4.4-11.0)
[2022-01-12 10:53] LABS: Differential Indicated SCAN CRITERIA MET
[2022-01-12] MEDS: Morphine 2 MG/ML Syringe IV ×3 (10:57→20:21)
[2022-01-12] MEDS: 0.9% Normal Saline 1,000 ML 150 ML IV (10:57)
--- NOTE | 2022-01-12 10:59 | EDS_ITS ---
HPI History of Present Illness Chief Complaint: Cellulitis Narrative Narrative: Here with mother for reevaluation. History of Down syndrome type 1 diabetes with insulin pump. Seen 2 days ago in the ED concerning cellulitis of abdominal wall due to placement of glucose monitoring device there at that time. Reports by mother symptoms worsen since then. Currently on Keflex. There is been fevers at home. Patient more discomfort. Patient does communicate with mother. No history of similar. She states an antibiotic was given that caused some burning therefore that was held. She is given another antibiotic before discharge. She is taking Keflex last dose 9 AM today. Reviewing records, noted by ED physician a centimeter erythema with slight induration 2 days ago. Bedside ultrasound noted no fluid collection. She had a white count of 15. She is discharged with outpatient close follow-up and return precautions. [facility] Medical History Bowel obstruction Diabetes History of type 1 diabetes mellitus HLD (hyperlipidemia) Hypoglycemia unawareness in type 1 diabetes mellitus Hypothyroidism Insulin pump titration Obesity Obesity Orthostatic hypotension Presence of insulin pump Sinus bradycardia Trisomy 21 Ventricular septal defect (VSD), membranous Home Medications ascorbate calcium (vitamin C) 500 mg tablet 500 mg PO DAILY supplement 12/24/20 [History Last Taken 01/11/22] cholecalciferol (vitamin D3) 125 mcg (5,000 unit) capsule 125 mcg PO DAILY supplement 12/24/20 [History Last Taken 01/11/22] cinnamon bark 500 mg capsule (Cinnamon) 500 mg PO DAILY supplement 12/24/20 [History Last Taken 01/11/22] insulin pump cartridge #5 ea 12/24/20 [History Last Taken Unknown] multivitamin (Daily Multi-Vitamin tablet) 1 tab PO DAILY supplement 12/24/20 [History Last Taken 01/11/22] multivitamin with minerals (Hair,Skin and Nails tablet) 1 tab PO DAILY supplement 12/24/20 [History Last Taken 01/11/22] blood-glucose meter,continuous (Dexcom G6 [facility] #1 ea 01/02/21 [Rx Last Taken Unknown] flash glucose sensor (FreeStyle [place] 2 Sensor kit) #2 ea 08/19/21 [Rx Last Taken Unknown] OneTouch Ultra Test (blood sugar diagnostic) #250 ea 08/20/21 [Rx Last Taken Unknown] OneTouch Ultra2 Meter (blood-glucose meter) #1 ea 08/20/21 [Rx Last Taken Unknown] glucagon 1 mg solution for injection 1 mg subcut ONCE low blood sugar 01/12/22 [History Last Taken Unknown] insulin lispro 100 unit/mL subcutaneous solution (Humalog U-100 Insulin) 100 unit subcut DAILY diabetes 01/12/22 [History Last Taken Unknown] Allergy/AdvReac Type Severity Reaction Status Date / Time vancomycin AdvReac Itching Verified 01/12/22 09:54 Family History Father Hypertension Surgical History History of hysterectomy Social History Smoking Status: Never smoker ROS ROS ED Review of Systems ROS Unobtainable: due to mental condition Constitutional Constitutional ED: Reports fever(s) Respiratory/Chest Respiratory/Chest: Denies cough Gastrointestinal Gastrointestinal: Reports abdominal pain; Denies nausea or vomiting Integumentary Reports abscess EXAM Physical Exam Const Vital Signs: 01/12/22 09:50 01/12/22 09:53 01/12/22 10:53 Temperature 98.4 F 98.4 F 98 F Temperature Source Temporal Temporal Temporal Pulse Rate 50 L 50 L 62 Respiratory Rate 16 16 18 Blood Pressure 100/46 L 100/46 L 110/58 L Blood Pressure Mean 64 64 75 Pulse Ox 99 99 97 Oxygen Delivery Method Room Air Room Air Room Air 01/12/22 11:00 01/12/22 11:27 01/12/22 12:00 Temperature 98 F 98 F 98.2 F Temperature Source Temporal Temporal Temporal Pulse Rate 60 93 Respiratory Rate 18 16 Blood Pressure 110/52 L 99/66 Blood Pressure Mean 71 77 Pulse Ox 97 98 Oxygen Delivery Method Room Air Room Air 01/12/22 12:00 01/12/22 11:16 01/12/22 12:16 Temperature 98.2 F 98.2 F 98.2 F Temperature Source Temporal Temporal Temporal Pulse Rate 92 92 Respiratory Rate 18 18 Blood Pressure 99/63 100/64 Blood Pressure Mean 75 76 Pulse Ox 98 98 Oxygen Delivery Method 01/12/22 13:00 01/12/22 13:00 01/12/22 13:00 Temperature 98.2 F 98.2 F 98.2 F Temperature Source Temporal Temporal Temporal Pulse Rate 90 90 Respiratory Rate 18 18 Blood Pressure 112/65 122/65 H Blood Pressure Mean 80 84 Pulse Ox 97 96 Oxygen Delivery Method Room Air Room Air Positive well nourished and well developed Constitutional Narrative: Minimal communication, nontoxic General Appearance ED: well developed HEENT Reports moist mucous membranes normocephalic and atraumatic Eyes PERRL, EOMs intact bilaterally and conjunctivae normal General Eye ED: Yes normal appearance of both eyes Neck no lymphadenopathy and supple General: Negative for tenderness Chest Wall Chest: Negative for tenderness Resp normal respiratory effort and normal air movement Effort and Inspection: symmetric chest movement; Negative for respiratory distress Cardio regular rate, regular rhythm and no murmurs Peripheral Pulses: pulses 2+ throughout GI normal to inspection, nondistended, normoactive bowel sounds GI Narrative: Right side lower abdomen 18 cm x 10 cm erythema with induration, there is no active drainage, this was tender to palpation. Back/Spine no CVA tenderness and no thoracic nor lumbar tenderness Extremity normal to inspection General Extremety ED: Negative for edema or tenderness General Extremity: Negative for edema Neuro Sensorium / Orientation: awake and alert Skin Skin Narrative: See above MDM MDM MDM Narrative Medical decision making narrative: Patient had enlarging cellulitis concerning abscess right abdomen. Currently measuring 18 cm diameter from 8 cm reported 2 days ago. Sepsis labs were added. White count returned at 18 up from 15. Creatinine 1.18. Lactic acid 1.7. From history and discussion and evaluation reported had burning with infusion of vancomycin. 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 Discussed with her findings it would be recommended. She was started with Zosyn and vancomycin was initially infused at half the rate however she did to have additional started having. Flushing.. Benadryl was ordered. Rate slowed down to quarter of the normal rate. She tolerated fine. We will treat with morphine for symptoms. CT scan noted cellulitis of the abdominal wall. No collection of fluid. However clinically I am concerned of this. I did speak with surgery, Dr. Persaud, who saw the patient in the ED, will plan antibiotics IV, repeat n.p.o., and with her diabetes will admit to medicine. Follow-up with glucose in the labs 334 Is normal she is given 10 units of subcu insulin. I spoke with hospitalist Dr. Middleton for admission. He request I speak with ID due to her red man syndrome to follow-up as an i npatient. I spoke with Dr. Neff updated patient's history and findings. He will follow as an inpatient. Lab Data Attestation: I reviewed the patient's lab results. Labs: Laboratory Results - last 24 hr 01/12/22 01/12/22 01/12/22 10:33 10:33 10:33 WBC 18.6 H RBC 3.81 L Hgb 12.9 Hct 38.1 MCV 100.0 H MCH 33.9 H MCHC 33.9 RDW Std Deviation 45.2 H RDW Coeff of Lamine 12.2 Plt Count 261 MPV 10.9 Immature Gran % (Auto) 0.700 Neut % (Auto) 82.6 H Lymph % (Auto) 7.2 L [place] % (Auto) 8.6 Eos % (Auto) 0.5 Baso % (Auto) 0.4 Absolute Neuts (auto) 15.4 H Absolute Lymphs (auto) 1.34 Nucleated RBC % 0 Differential Comment Diff Path Review May foll Platelet Estimate ADEQUATE RBC Morphology NORM C+C PT 14.2 INR 1.1 APTT 35.5 Sodium 131 L Potassium 4.5 Chloride 98 Carbon Dioxide 25.0 Anion Gap 8 BUN 14 Creatinine 1.18 H Estim Creat Clear Calc 45.98 Est GFR (MDRD) Af Amer 65 Est GFR (MDRD) Non-Af 54 L BUN/Creatinine Ratio 11.9 Glucose 334 H Lactic Acid Calcium 8.6 Total Bilirubin 0.90 AST 13 L ALT 13 Alkaline Phosphatase 133 H Total Protein 6.7 Albumin 2.5 L Globulin 4.2 Albumin/Globulin Ratio 0.6 L 01/12/22 10:33 WBC RBC Hgb Hct MCV MCH MCHC RDW Std Deviation RDW Coeff of Lamine Plt Count MPV Immature Gran % (Auto) Neut % (Auto) Lymph % (Auto) [place] % (Auto) Eos % (Auto) Baso % (Auto) Absolute Neuts (auto) Absolute Lymphs (auto) Nucleated RBC % Differential Comment Diff Path Review Platelet Estimate RBC Morphology PT INR APTT Sodium Potassium Chloride Carbon Dioxide Anion Gap BUN Creatinine Estim Creat Clear Calc Est GFR (MDRD) Af Amer Est GFR (MDRD) Non-Af BUN/Creatinine Ratio Glucose Lactic Acid 1.7 Calcium Total Bilirubin AST ALT Alkaline Phosphatase Total Protein Albumin Globulin Albumin/Globulin Ratio Radiography Diagnostic Testing: Clinical Impression(s) from Imaging Studies Abdomen/Pelvis CT 01/12/22 11:35 IMPRESSION: Cellulitis of the anterior abdominal wall in the right upper quadrant laterally at the level of the umbilicus but no abscess. Electronically Signed: Gary Bro MD at 12:15 EDT , Discharge Plan Dx/Rx/DC Orders Clinical Impression: Abdominal wall abscess, Abdominal wall cellulitis, Trisomy 21, History of type 1 diabetes mellitus Disposition Disposition: Acute Care Hospital [facility] Discharge Date/Time: 01/12/22 14:57
[2022-01-12 11:03] LABS: International Normalized Ratio 1.1; Prothrombin Time (Protime)PT. 14.2 SECONDS (11.7-14.9)
[2022-01-12 11:04] LABS: ALB/GLOB Ratio 0.6 RATIO (0.9-2.4); AST(SGOT) 13 U/L (15-37); Alanine Aminotransfer ALT/SGPT 13 U/L (13-56); Albumin, Serum 2.5 g/dL (3.2-5.0); Alkaline Phosphatase 133 U/L (45-117); Anion Gap 8 (5-15); BUN 14 mg/dL (7-18); BUN/Creat Ratio 11.9 RATIO (10-20); Calcium,Total 8.6 mg/dL (8.5-10.1); Chloride 98 mmol/L (98-107); Creatinine, Serum 1.18 mg/dL (0.55-1.02); EST Glomerular Filtration Rate 54 mL/min (>60); Est Glom Filt Rate - Afr Amer 65 mL/min (>60); Estimated Creatinine Clearance 45.98 ml/min; Globulin 4.2 g/dL (2.2-4.2); Glucose 334 mg/dL (74-106); Partial Thromboplast Time 35.5 Seconds (24.1-36.2); Potassium 4.5 mmol/L (3.5-5.1); Protein, Total 6.7 g/dL (6.4-8.2); Sodium Level 131 mmol/L (136-145)
[2022-01-12 11:19] LABS: Lactic Acid 1.7 mmol/L (0.4-1.9)
[2022-01-12 11:25] LABS: Platelet Estimate ADEQUATE (ADEQ); Red Cell Morphology NORM C+C NORMAL (NORM C&C)
--- NOTE | 2022-01-12 11:35 | CT_ITS ---
STUDY: CT ABDOMEN AND PELVIS WITH CONTRAST REASON FOR EXAM: Female, 41 years old. abscess RADIATION DOSAGE (If Supplied By Facility): CTDIvol = ( 9.74 ) mGy, DLP = ( 631.38 ) mGycm TECHNIQUE: Transaxial images were obtained from the dome of the diaphragm to the symphysis pubis without oral contrast. IV 100mL Isovue-300 was administered. Sagittal and coronal images were reconstructed. Individualized dose optimization techniques were used for this CT. COMPARISON: 08/08/2020 FINDINGS: The visualized lung bases are unremarkable. The visualized portions of the heart are within normal limits. Normal liver. Normal gallbladder and extrahepatic biliary system. Normal spleen. Normal pancreas. Normal bilateral adrenal glands. Normal right kidney. Normal left kidney. Normal visualized stomach. Normal small intestine. Normal colon. The appendix is visualized and appears normal. Normal abdominal aorta. Normal inferior vena cava. Normal retroperitoneum. Normal urinary bladder. Skin thickening with subjacent stranding of the surrounding fat and some fluid within the anterior abdominal wall in the right upper quadrant lateral to the umbilicus consistent with cellulitis. No enhancing loculated fluid collection to suggest abscess. Mild levoscoliosis centered at L2. CT/Abdomen/Pelvis W IV Cont ONLY IMPRESSION: Cellulitis of the anterior abdominal wall in the right upper quadrant laterally at the level of the umbilicus but no abscess. Electronically Signed: Gary Bro MD at 12:15 EDT ,
[2022-01-12] MEDS: Vancomycin IV 1,000 MG/200 ML BAG 100 MG IV (13:29)
--- NOTE | 2022-01-12 13:40 | EX.PCM.CON.S ---
Assessment & Plan Assessment/Plan (1) Presence of insulin pump: (2) Cellulitis of abdominal wall: PLAN: Plan This is a 41-year-old female with Down syndrome and type 1 diabetes who presents with severe cellulitis of the right upper quadrant of her abdomen along with leukocytosis. This infection was reportedly started after patient had a insulin pump at this location. This pump has been relocated to the left upper extremity. CT imaging does not show any discernible fluid collections in the soft tissues. I do not feel any fluctuance on exam. Recommend admission for glucose control (patient's mother attempted to show me the function of the insulin pump, but found that the cannula was not transcutaneous and likely not able to infuse any insulin so it was removed) and initiation of IV antibiotics. Emergency medicine as previously obtained blood cultures which are now pending. ? We will continue to follow patient's clinical exam and assess for any need for operative intervention ? Please keep n.p.o. past midnight tonight in the event that patient develops an indication for operative incision and drainage procedure HPI Consult Data Date of Consult: 01/12/22 HPI Narrative HPI Narrative: ARIADNA CAST, is a 41 F who presents to [facility] with her mother for evaluation of right upper quadrant cellulitis. Her mother provides most of the history (patient has a history of Down syndrome). She states that she brought her daughter into the emergency room 2 days ago with the same complaint and they were administered IV antibiotics (Vanco and Zosyn) and prescribed Keflex as an outpatient. However, in the time since his evaluation the area of cellulitis has spread in the discomfort from the site has grown worse. This urine is a type I diabetic who uses a Dexcom glucose monitor and insulin pump for management of her disease process. On 01/07/2022 the insulin pump was moved from the right upper quadrant to the left arm after noticing some redness of the abdominal wall. In association with this redness patient had some hyperglycemia (as per glucose monitor) and fever. Patient's ER evaluation today is notable for a worsened leukocytosis at 18.6 (previously 15), worsened exam with spreading of the area of induration from 8 cm to now 18 cm, and CT imaging that confirms the presence of cellulitis without a discernible fluid collection to represent an abscess. Patient has a history of multiple abdominal procedures related to intestinal torsion, a blunt injury to her small intestine, and appendectomy. She has no history of staph/MRSA infections. [facility] Medical History Bowel obstruction Diabetes History of type 1 diabetes mellitus HLD (hyperlipidemia) Hypoglycemia unawareness in type 1 diabetes mellitus Hypothyroidism Insulin pump titration Obesity Obesity Orthostatic hypotension Presence of insulin pump Sinus bradycardia Trisomy 21 Ventricular septal defect (VSD), membranous Home Medications ascorbate calcium (vitamin C) 500 mg tablet 500 mg PO DAILY 12/24/20 [History Last Taken Unknown] cholecalciferol (vitamin D3) 125 mcg (5,000 unit) capsule 125 mcg PO DAILY 12/24/20 [History Last Taken Unknown] cinnamon bark 500 mg capsule (Cinnamon) 500 mg PO DAILY 12/24/20 [History Last Taken Unknown] insulin pump cartridge #5 ea 12/24/20 [History Last Taken Unknown] multivitamin (Daily Multi-Vitamin tablet) 1 tab PO DAILY 12/24/20 [History Last Taken Unknown] multivitamin with minerals (Hair,Skin and Nails tablet) 1 tab PO DAILY 12/24/20 [History Last Taken Unknown] blood-glucose meter,continuous (Dexcom G6 [facility]) #1 ea 01/02/21 [Rx Last Taken Unknown] flash glucose sensor (FreeStyle [place] 2 Sensor kit) #2 ea 08/19/21 [Rx Last Taken Unknown] OneTouch Ultra Test (blood sugar diagnostic) #250 ea 08/20/21 [Rx Last Taken Unknown] OneTouch Ultra2 Meter (blood-glucose meter) #1 ea 08/20/21 [Rx Last Taken Unknown] glucagon 1 mg solution for injection 1 mg subcut ONCE #2 ea 10/27/21 [Rx Last Taken Unknown] Humalog U-100 Insulin 100 unit/mL subcutaneous solution (insulin lispro) 100 unit subcut DAILY #90 mL 01/02/22 [Rx Last Taken Unknown] cephalexin 500 mg capsule 500 mg PO Q6 #40 caps 01/11/22 [Rx Last Taken Unknown] levothyroxine 50 mcg tablet 50 mcg PO DAILY 01/11/22 [History Last Taken Unknown] ondansetron 4 mg disintegrating tablet 4 mg PO Q8H PRN nausea and vomiting #10 tabs 01/11/22 [Rx Last Taken Unknown] Allergy/AdvReac Type Severity Reaction Status Date / Time vancomycin AdvReac Itching Verified 01/12/22 09:54 Family History Father Hypertension Surgical History History of hysterectomy Social History Smoking Status: Never smoker ROS Constitutional Constitutional: Reports difficulty sleeping and fever(s) Respiratory/Chest Respiratory/Chest: Reports red skin Integumentary Integumentary: Reports rash Physical Exam Const alert and oriented x3 General Appearance: cooperative Resp normal respiratory effort Effort and Inspection: able to speak in complete sentences GI GI Narrative: Wide area of blanchable erythema in right upper quadrant that is exquisitely tender to palpation. There is some superficial sloughing of the skin, but no discernible underlying fluctuance. There is no drainage at present. Patient has a well-healed laparotomy scar centrally. Patient's abdomen is otherwise nontender and nondistended. Extremity Extremity Narrative: Redness to right upper extremity, insulin pump affixed to outer aspect of left upper extremity Lab / Micro Data Result Diagrams: 01/12/22 10:33 01/12/22 10:33 Labs: Laboratory Results - last 24 hr 01/12/22 10:33: WBC 18.6 H, RBC 3.81 L, Hgb 12.9, Hct 38.1, MCV 100.0 H, MCH 33.9 H, MCHC 33.9, RDW Std Deviation 45.2 H, RDW Coeff of Lamine 12.2, Plt Count 261, MPV 10.9, Immature Gran % (Auto) 0.700, Neut % (Auto) 82.6 H, Lymph % (Auto) 7.2 L, [place] % (Auto) 8.6, Eos % (Auto) 0.5, Baso % (Auto) 0.4, Absolute Neuts (auto) 15.4 H, Absolute Lymphs (auto) 1.34, Nucleated RBC % 0, Differential Comment , Diff Path Review May , Platelet Estimate ADEQUATE, RBC Morphology NORM C+C 01/12/22 10:33: PT 14.2, INR 1.1, APTT 35.5 01/12/22 10:33: Sodium 131 L, Potassium 4.5, Chloride 98, Carbon Dioxide 25.0, Anion Gap 8, BUN 14, Creatinine 1.18 H, Estim Creat Clear Calc 45.98, Est GFR (MDRD) Af Amer 65, Est GFR (MDRD) Non-Af 54 L, BUN/Creatinine Ratio 11.9, Glucose 334 H, Calcium 8.6, Total Bilirubin 0.90, AST 13 L, ALT 13, Alkaline Phosphatase 133 H, Total Protein 6.7, Albumin 2.5 L, Globulin 4.2, Albumin/Globulin Ratio 0.6 L 01/12/22 10:33: Lactic Acid 1.7 Radiology Impression Abdomen/Pelvis CT 01/12/22 11:35 IMPRESSION: Cellulitis of the anterior abdominal wall in the right upper quadrant laterally at the level of the umbilicus but no abscess. Electronically Signed: Gary Bro MD at 12:15 EDT Reading Location ID and State: [id number] [facility] Tel , Service support , Charges/Coding Visit Charges Inpatient E&M: 01332 Init Hosp L2
--- NOTE | 2022-01-12 13:44 | NURSING ---
MED SURG CLAUDIA ABD WALL ABSCESS, CELLULITIS, HX OF DIABETES
[2022-01-12] MEDS: Insulin Lispro 100 UNIT/ML INSULN.PEN 10 UNIT SC ×2 (14:07→17:05)
[2022-01-12] MEDS: DiphenhydrAMINE 50 MG/ML Syringe 12.5 MG IV (14:27)
--- NOTE | 2022-01-12 15:04 | CASEMGMT ---
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 Patient declines information on either document. Corina BRO
--- NOTE | 2022-01-12 16:07 | HP.PCM.HOS_ITS ---
HPI - General General Date of Admission: 01/12/22 Date of Service: 01/12/22 Chief Complaint: Abdominal wall redness, swelling and fever, started on 01/07/2022 HPI Narrative ARIADNA CAST, is a 41 F with history of Down syndrome, high functional, ADL independent came to ED for worsening of rash, fever of abdominal wall. Patient has insulin pump and abdominal wall. As the patient was more drowsy and lethargic last week for 2 days, was sleeping most of the time therefore mother who lives with the patient checked her and found abdominal wall redness swelling and tenderness. Insulin pump was relocated to right arm. She also has glucose monitor on left side abdomen which was removed. She came to ED on 01/10. At that time bedside superficial ultrasound was done which showed 4 cm with no fluid collection. 1 dose of vancomycin and Zosyn was given and patient was discharged on Keflex and Zofran for nausea.Blood sugar reading was also high at 193 which normally runs around 150. Blood sugar was controlled and discharged home. At home patient continues to spike fever, redness swelling increased and patient is more nauseous. Leukocytosis of 15,000. Patient is started on IV vancomycin and Zosyn in ED but developed mild redness and itching therefore vancomycin infusion was decreased, ID consulted and Benadryl given. She does not have respiratory distress, shortness of breath or increasing./red man syndrome Patient is further admitted [facility] Medical History Bowel obstruction Diabetes History of type 1 diabetes mellitus HLD (hyperlipidemia) Hypoglycemia unawareness in type 1 diabetes mellitus Hypothyroidism Insulin pump titration Obesity Obesity Orthostatic hypotension Presence of insulin pump Sinus bradycardia Trisomy 21 Ventricular septal defect (VSD), membranous Home Medications ascorbate calcium (vitamin C) 500 mg tablet 500 mg PO DAILY supplement 12/24/20 [History Last Taken 01/11/22] cholecalciferol (vitamin D3) 125 mcg (5,000 unit) capsule 125 mcg PO DAILY supplement 12/24/20 [History Last Taken 01/11/22] cinnamon bark 500 mg capsule (Cinnamon) 500 mg PO DAILY supplement 12/24/20 [History Last Taken 01/11/22] insulin pump cartridge #5 ea 12/24/20 [History Last Taken Unknown] multivitamin (Daily Multi-Vitamin tablet) 1 tab PO DAILY supplement 12/24/20 [History Last Taken 01/11/22] multivitamin with minerals (Hair,Skin and Nails tablet) 1 tab PO DAILY supplement 12/24/20 [History Last Taken 01/11/22] blood-glucose meter,continuous (Dexcom G6 Medical Receptionist misc) #1 ea 01/02/21 [Rx Last Taken Unknown] flash glucose sensor (FreeStyle [place] 2 Sensor kit) #2 ea 08/19/21 [Rx Last Taken Unknown] OneTouch Ultra Test (blood sugar diagnostic) #250 ea 08/20/21 [Rx Last Taken Unknown] OneTouch Ultra2 Meter (blood-glucose meter) #1 ea 08/20/21 [Rx Last Taken Unknown] glucagon 1 mg solution for injection 1 mg subcut ONCE low blood sugar 01/12/22 [History Last Taken Unknown] insulin lispro 100 unit/mL subcutaneous solution (Humalog U-100 Insulin) 100 unit subcut DAILY diabetes 01/12/22 [History Last Taken Unknown] Allergy/AdvReac Type Severity Reaction Status Date / Time vancomycin AdvReac Itching Verified 01/12/22 09:54 Family History Father Hypertension Surgical History History of hysterectomy Social History Smoking Status: Never smoker ROS ROS Narrative 14 ROS mainly obtained from patient's mother near the bedside Constitutional: Reports fatigue and weakness. Fever. HEENT: Reports systems reviewed and no addt'l complaints, except as documented Respiratory/Chest: Denies chest pain, shortness of breath at rest or with exertion CVS: VSD membranous Gastrointestinal: Abdominal surgical scar. History of volvulus. Mild nausea. Denies coffee ground emesis, hematemesis or vomiting Genitourinary: Denies burning urination or new urinary tract symptoms Musculoskeletal: Mild chronic leg swelling. ROM intact. Neurologic: Denies seizure-like activity. Patient has reading and writing capacity and has functional capacity. skin: Redness, induration and swelling about 4 cm on the right side of the abdomen wall. Does not seem to be going in peritoneal cavity mild redness of the right upper extremity and bilateral cheeks. Endocrinology: Reports systems reviewed and no addt'l complaints, except as documented Hematologic/Lymphatic: ROS limited. No DVT/PE Rest 14 ROS are limited as patient has Down syndrome with mild cognitive deficit Vital Signs Vital Signs Vital Signs: 01/12/22 09:50 01/12/22 09:53 01/12/22 10:53 Temperature 98.4 F 98.4 F 98 F Temperature Source Temporal Temporal Temporal Pulse Rate 50 L 50 L 62 Respiratory Rate 16 16 18 Respiratory Effort Respiratory Depth Respiratory Pattern Blood Pressure 100/46 L 100/46 L 110/58 L Blood Pressure Mean 64 64 75 Blood Pressure Source Blood Pressure Position Blood Pressure Location Pulse Ox 99 99 97 Oxygen Delivery Method Room Air Room Air Room Air 01/12/22 11:00 01/12/22 11:27 01/12/22 12:00 Temperature 98 F 98 F 98.2 F Temperature Source Temporal Temporal Temporal Pulse Rate 60 93 Respiratory Rate 18 16 Respiratory Effort Respiratory Depth Respiratory Pattern Blood Pressure 110/52 L 99/66 Blood Pressure Mean 71 77 Blood Pressure Source Blood Pressure Position Blood Pressure Location Pulse Ox 97 98 Oxygen Delivery Method Room Air Room Air 01/12/22 12:00 01/12/22 11:16 01/12/22 12:16 Temperature 98.2 F 98.2 F 98.2 F Temperature Source Temporal Temporal Temporal Pulse Rate 92 92 Respiratory Rate 18 18 Respiratory Effort Respiratory Depth Respiratory Pattern Blood Pressure 99/63 100/64 Blood Pressure Mean 75 76 Blood Pressure Source Blood Pressure Position Blood Pressure Location Pulse Ox 98 98 Oxygen Delivery Method 01/12/22 13:00 01/12/22 13:00 01/12/22 13:00 Temperature 98.2 F 98.2 F 98.2 F Temperature Source Temporal Temporal Temporal Pulse Rate 90 90 Respiratory Rate 18 18 Respiratory Effort Respiratory Depth Respiratory Pattern Blood Pressure 112/65 122/65 H Blood Pressure Mean 80 84 Blood Pressure Source Blood Pressure Position Blood Pressure Location Pulse Ox 97 96 Oxygen Delivery Method Room Air Room Air 01/12/22 14:08 01/12/22 14:08 01/12/22 15:00 Temperature 98.4 F 98.4 F 98.6 F Temperature Source Temporal Temporal Temporal Pulse Rate 88 89 Respiratory Rate 20 H 16 Respiratory Effort Respiratory Depth Respiratory Pattern Blood Pressure 91/58 L 93/49 L Blood Pressure Mean 69 63 Blood Pressure Source Monitor Blood Pressure Position Supine Blood Pressure Location Left Arm Pulse Ox 100 100 Oxygen Delivery Method Room Air Room Air 01/12/22 15:08 01/12/22 15:44 Temperature Temperature Source Pulse Rate 88 Respiratory Rate Respiratory Effort Normal Non-Labored Respiratory Depth Normal Respiratory Pattern Normal Blood Pressure Blood Pressure Mean Blood Pressure Source Blood Pressure Position Blood Pressure Location Pulse Ox Oxygen Delivery Method Room Air Weight Weight: 147 lb 11.355 oz Body Mass Index (BMI) 28.8 Physical Exam Narrative General: Awake, oriented x3. Mild nauseous. HEENT: Atraumatic, PERRLA, EOMI, Normocephalic Oral: Oral mucosa dry. No oral ulcers. Neck: Supple, No JVD, Negative Carotid Bruits Lungs: Air entry diminished in bilateral lung bases. No crepitation/rhonchi Cardiovascular: Regular rhythm, sinus bradycardia, Normal S1, Normal S2, systolic murmur over LSB Abdomen: Bowel Sounds Present, Soft, surgical scar midline present. History of volvulus repair at age of 9 and then bowel injury due to accident required laparotomy at age of 15. : Status post hysterectomy. No renal angle tenderness. No suprapubic tenderness. Extremities: No edema, Capillary Refill Less than 3 Seconds Skin: 4 cm soft tissue induration on right central abdominal wall with tenderness, erythema and mild fluctuance. Mild localized abscess with cellulitis. Musculoskeletal: No Tenderness to Palpation of Joints or Extremities Neurological: Cranial nerves II-XII grossly intact, DTR 2+/4 Psych/Mental Status: Flat affect. Results Lab / Micro Data Result Diagrams: 01/12/22 10:33 01/12/22 10:33 Labs: Laboratory Results - last 24 hr 01/12/22 10:33: WBC 18.6 H, RBC 3.81 L, Hgb 12.9, Hct 38.1, MCV 100.0 H, MCH 33.9 H, MCHC 33.9, RDW Std Deviation 45.2 H, RDW Coeff of Lamine 12.2, Plt Count 261, MPV 10.9, Immature Gran % (Auto) 0.700, Neut % (Auto) 82.6 H, Lymph % (Auto) 7.2 L, Morrison % (Auto) 8.6, Eos % (Auto) 0.5, Baso % (Auto) 0.4, Absolute Neuts (auto) 15.4 H, Absolute Lymphs (auto) 1.34, Nucleated RBC % 0, Differential Comment , Diff Path Review September foll, Platelet Estimate ADEQUATE, RBC Morphology NORM C+C 01/12/22 10:33: PT 14.2, INR 1.1, APTT 35.5 01/12/22 10:33: Sodium 131 L, Potassium 4.5, Chloride 98, Carbon Dioxide 25.0, Anion Gap 8, BUN 14, Creatinine 1.18 H, Estim Creat Clear Calc 45.98, Est GFR (MDRD) Af Amer 65, Est GFR (MDRD) Non-Af 54 L, BUN/Creatinine Ratio 11.9, Glucose 334 H, Calcium 8.6, Total Bilirubin 0.90, AST 13 L, ALT 13, Alkaline Phosphatase 133 H, Total Protein 6.7, Albumin 2.5 L, Globulin 4.2, Albumin/Globulin Ratio 0.6 L 01/12/22 10:33: Lactic Acid 1.7 Radiology Impression Abdomen/Pelvis CT 01/12/22 11:35 IMPRESSION: Cellulitis of the anterior abdominal wall in the right upper quadrant laterally at the level of the umbilicus but no abscess. Electronically Signed: Gary Bro MD at 12:15 EDT , Assessment & Plan Assessment/Plan (1) Cellulitis of abdominal wall: (2) Type 1 diabetes: PLAN: Plan This 41-year-old female with history of Down syndrome, high functional was brought to ED for worsening of abdominal wall cellulitis and abscess: 1. Worsening of abdominal wall cellulitis and localized abscess, failure of outpatient treatment: Patient is being admitted in PCU with MedSur status. Patient has leukocytosis, 18,000 increased from 15,028/27. Patient blood pressure was normal in triage but slightly went down to 93/49, still not hypotensive. Patient does not meet criteria for sepsis. Lactic acid normal. Abdomen/pelvis CT reviewed individually and there is cellulitis of intra- abdominal wall in the right upper quadrant at the level of umbilicus but reported no abscess. Clinically seems superficial abscess with fluctuance. General surgery consulted. N.p.o. past midnight for possible incision and drainage tomorrow AM. Infectious work-up including blood cultures ordered. Patient started on IV vancomycin and Zosyn. ED physician consulted ID and I also talked to Dr. Neff. Agreed on continuation of vancomycin slow and Benadryl 12.5 mg IV half an hour before the start of vancomycin. Patient is tolerating well. Discussed with the pharmacist. Her vancomycin dosing coming SQ 12 hourly therefore Benadryl half an hour before both doses. 2. Diabetes mellitus type 1 with hyperglycemia probably due to infection: Patient is not in DKA. Accu-Chek before meals and at bedtime. IV fluid normal saline. On Lantus insulin 15 units subcutaneous twice daily and 10 units 3 times daily AC along with sliding scale coverage. Insulin pump was relocated left arm but patient mother thinks probably insulin was not going inside. 3. Hypotonic hypovolemic hyponatremia probably due to dehydration: IV fluid no rmal saline. Monitor serum sodium. Serum potassium, chloride are normal. BUN/creatinine elevated from baseline but does not meet the criteria for BRANDYN. BUN/creatinine 14/1.18, baseline creatinine around 1.0. 4. Down syndrome, trisomy 21 with high functional level: Patient has history of membranous VSD, obesity: PT and OT ordered. 5. Other comorbidities include dyslipidemia, hypothyroidism and obesity grade 2: Home medication reconciliation done. BMI 28.8 kg/m?. VTE prophylaxis: Moderate risk due to obesity: Lovenox 40 mg subcu daily. Living will/advanced directive/end of life care: Patient does not have living will or advanced directive. Discussed with the mother regarding advanced directive who is power of personal injury attorney for health. After discussion of benefits/risks procedures involved with full code, DNR CC arrest and DNR CC, the patient's mother opted for full code. The patient's mother does want artificial life support including intubation, tube feed, ventilator and/chest compression, central venous catheter, vasopressor and DC shock if needed Total time spent in [id number] encounter in discussion of advanced directive 16 minutes. Laboratory Results 01/12/22 10:33: WBC 18.6 H, RBC 3.81 L, Hgb 12.9, Hct 38.1, MCV 100.0 H, MCH 33.9 H, MCHC 33.9, RDW Std Deviation 45.2 H, RDW Coeff of Lamine 12.2, Plt Count 261, MPV 10.9, Immature Gran % (Auto) 0.700, Neut % (Auto) 82.6 H, Lymph % (Auto) 7.2 L, Morrison % (Auto) 8.6, Eos % (Auto) 0.5, Baso % (Auto) 0.4, Absolute Neuts (auto) 15.4 H, Absolute Lymphs (auto) 1.34, Nucleated RBC % 0, Differential Comment , Diff Path Review May foll, Platelet Estimate ADEQUATE, RBC Morphology NORM C+C 01/12/22 10:33: PT 14.2, INR 1.1, APTT 35.5 01/12/22 10:33: Sodium 131 L, Potassium 4.5, Chloride 98, Carbon Dioxide 25.0, Anion Gap 8, BUN 14, Creatinine 1.18 H, Estim Creat Clear Calc 45.98, Est GFR (MDRD) Af Amer 65, Est GFR (MDRD) Non-Af 54 L, BUN/Creatinine Ratio 11.9, Glucose 334 H, Calcium 8.6, Total Bilirubin 0.90, AST 13 L, ALT 13, Alkaline Phosphatase 133 H, Total Protein 6.7, Albumin 2.5 L, Globulin 4.2, Albumin/Globulin Ratio 0.6 L 01/12/22 10:33: Lactic Acid 1.7 Clinical Impression(s) from Imaging Studies Abdomen/Pelvis CT 01/12/22 11:35 IMPRESSION: Cellulitis of the anterior abdominal wall in the right upper quadrant laterally at the level of the umbilicus but no abscess. Charges/Coding Visit Charges Inpatient E&M: 37887 Init Hosp L3 Procedures Hospitalists Procedures: 61056 Advncd Care Plan 30 Min
--- NOTE | 2022-01-12 16:26 | PCM.RX.CS ---
Consult Pharmacy has been consulted to manage selected antiobiotic: Vancomycin Type of Consult: New start Prior Doses of Antibiotics Received/Current Regimen: Medications Discontinued Medications Vancomycin HCl (Vancomycin) 1,000 mg in 200 mls @ 100 mls/hr IV X1 ONE Stop: 01/12/22 12:57 Last Admin: 01/12/22 14:29 Dose: 50 mls/hr Labs: Sodium 131 mmol/L (136-145) L 01/12/22 10:33 Potassium 4.5 mmol/L (3.5-5.1) 01/12/22 10:33 Chloride 98 mmol/L (98-107) 01/12/22 10:33 Carbon Dioxide 25.0 mmol/L (21.0-32.0) 01/12/22 10:33 Anion Gap 8 (5-15) 01/12/22 10:33 BUN 14 mg/dL (7-18) 01/12/22 10:33 Creatinine 1.18 mg/dL (0.55-1.02) H 01/12/22 10:33 Est GFR (MDRD) Af Amer 65 mL/min (>60) 01/12/22 10:33 Est GFR (MDRD) Non-Af 54 mL/min (>60) L 01/12/22 10:33 BUN/Creatinine Ratio 11.9 RATIO (10-20) 01/12/22 10:33 Glucose 334 mg/dL (74-106) H 01/12/22 10:33 Weight used for dosin kg Estimated Creatinine Clearance: 46 mL/min Goal Trough: 15-20 mcg/mL Pharmacy Plan for Drug Dosing: Vanc 1000mg IV x1, 500mg IV q12h with trough prior to 4th dose per policy. Pharmacy Service will continue to monitor and adjust dosing as required. Follow-Up Labs: Trough Vancomycin - 01/14 @ 0030
[2022-01-12] MEDS: Enoxaparin 40 MG/0.4 ML Syringe SC (17:05)
[2022-01-12 17:30] LABS: Bedside Glucose 249 mg/dL (74-106)
--- NOTE | 2022-01-12 17:52 | NURSING ---
All documentation and medication administration completed by Sabrina Méndez RN completed under the supervision of this RN.
[2022-01-12] MEDS: 0.9% Normal Saline 1,000 ML 100 ML IV (18:04)
[2022-01-12] MEDS: Senna/Docusate Sodium 1 Tablet 2 TABLET PO (21:49)
[2022-01-12] MEDS: Insulin Lispro 100 UNIT/ML INSULN.PEN SC (21:49)
[2022-01-12] MEDS: Acetaminophen 325 MG Tablet 650 MG PO (21:59)
[2022-01-12 22:26] LABS: Bedside Glucose 389 mg/dL (74-106)
[2022-01-13] VITALS (16 sets, daily range): BP systolic 84–106; BP diastolic 41–82; PULSE 73–101; RESP 13–18; TEMP 36.1–36.6; O2SAT 94–100; BMI 28.8
[2022-01-13] MEDS: DiphenhydrAMINE 50 MG/ML Syringe 12.5 MG IV ×2 (01:28→17:31)
[2022-01-13] MEDS: Vancomycin IV 500 MG/100 ML BAG 50 MG IV ×2 (01:50→18:24)
[2022-01-13 03:06] LABS: Bedside Glucose 285 mg/dL (74-106)
[2022-01-13] MEDS: 0.9% Normal Saline 1,000 ML 100 ML IV (03:55)
[2022-01-13] MEDS: Ondansetron 4 MG/2 ML Vial IV (04:06)
[2022-01-13 05:15] LABS: Absolute Lymphocyte Count 1.29 X10^3/uL (0.83-4.51); Absolute Neutrophil Count 14.3 X10^3/uL (2.0-7.7); Basophil# 0.06 X10^3/uL; Basophil% 0.3 % (0-1); Eosinophil# 0.05 X10^3/uL; Eosinophils% 0.3 % (0-5); Hematocrit 33.5 % (37-47); Hemoglobin 11.4 g/dL (12.0-15.0); Lymphocyte # 1.29 X10^3/ul (0.83-4.51); Lymphocyte % 7.4 % (19-41); Mean Corpuscular Hgb 33.8 pg (27.0-32.0); Mean Corpuscular Volume 99.4 fL (81-99); Mean Platelet Vol. 10.9 fl (6.2-12.0); Monocyte# 1.61 X10^3/uL; Monocyte% 9.2 % (0-10); NRBC Flagged by Analyzer 0 % (0-5); Neutrophil # 14.32 X10^3/uL (2.7-7.7); Neutrophil % 82.2 % (47-70); POSITIVE DIFFERENTIAL YES; Platelet Count 266 K/mm3 (150-450); RBC Distribution Width SD 43.9 fl (35.1-43.9); Red Blood Count 3.37 M/mm3 (4.2-5.4); White Blood Count 17.4 K/mm3 (4.4-11.0)
[2022-01-13] MEDS: Acetaminophen 325 MG Tablet 650 MG PO ×2 (05:28→21:54)
[2022-01-13 05:30] LABS: BUN 19 mg/dL (7-18); Creatinine, Serum 1.13 mg/dL (0.55-1.02); Glucose 380 mg/dL (74-106)
[2022-01-13 05:31] LABS: Anion Gap 13 (5-15); BUN/Creat Ratio 16.8 RATIO (10-20); Calcium,Total 7.7 mg/dL (8.5-10.1); Chloride 98 mmol/L (98-107); Differential Indicated SCAN CRITERIA MET; EST Glomerular Filtration Rate 57 mL/min (>60); Est Glom Filt Rate - Afr Amer 69 mL/min (>60); Estimated Creatinine Clearance 48.01 ml/min; Potassium 4.9 mmol/L (3.5-5.1); Sodium Level 129 mmol/L (136-145)
[2022-01-13 05:32] LABS: Differential Comment SCANNED
[2022-01-13 07:17] LABS: Hemoglobin A1c 8.6 % (3.8-5.6)
[2022-01-13] MEDS: Insulin Lispro 100 UNIT/ML INSULN.PEN SC ×4 (07:56→22:00)
[2022-01-13] MEDS: Senna/Docusate Sodium 1 Tablet 2 TABLET PO ×2 (07:56→21:54)
[2022-01-13 08:06] LABS: Bedside Glucose 399 mg/dL (74-106)
--- NOTE | 2022-01-13 08:10 | PCM.PN.SRG ---
Subjective Subjective Patient seen and examined during AM rounds. She continues to complain of pain in her right upper quadrant infection. He states that she is nervous and is hoping her mother will arrive soon. She has a number of concerns related to her insulin this morning. Objective Data Objective Data Vital Signs: Vital Signs Temp Pulse Resp BP Pulse Ox O2 Del Method 97.0 F L 93 16 102/41 L 94 Room Air 01/13/22 03:35 01/13/22 03:35 01/13/22 03:35 01/13/22 04:08 01/13/22 03:35 01/13/22 03:40 Oxygen Delivery Method Room Air Weight: 150 lb 12.739 oz Body Mass Index (BMI) 28.8 Intake & Output: Intake and Output for Last 24 Hours 01/11/22 01/12/22 01/13/22 23:59 23:59 23:59 Intake Total 1035 / 1635 1765 / 1765 Balance 1035 / 1635 1765 / 1765 Lab / Micro Data Result Diagrams: 01/13/22 05:08 01/13/22 05:08 Labs: Laboratory Results - last 24 hr 01/12/22 10:33: WBC 18.6 H, RBC 3.81 L, Hgb 12.9, Hct 38.1, MCV 100.0 H, MCH 33.9 H, MCHC 33.9, RDW Std Deviation 45.2 H, RDW Coeff of Lamine 12.2, Plt Count 261, MPV 10.9, Immature Gran % (Auto) 0.700, Neut % (Auto) 82.6 H, Lymph % (Auto) 7.2 L, Andrews % (Auto) 8.6, Eos % (Auto) 0.5, Baso % (Auto) 0.4, Absolute Neuts (auto) 15.4 H, Absolute Lymphs (auto) 1.34, Nucleated RBC % 0, Differential Comment , Diff Path Review May foll, Platelet Estimate ADEQUATE, RBC Morphology NORM C+C 01/12/22 10:33: PT 14.2, INR 1.1, APTT 35.5 01/12/22 10:33: Sodium 131 L, Potassium 4.5, Chloride 98, Carbon Dioxide 25.0, Anion Gap 8, BUN 14, Creatinine 1.18 H, Estim Creat Clear Calc 45.98, Est GFR (MDRD) Af Amer 65, Est GFR (MDRD) Non-Af 54 L, BUN/Creatinine Ratio 11.9, Glucose 334 H, Calcium 8.6, Total Bilirubin 0.90, AST 13 L, ALT 13, Alkaline Phosphatase 133 H, Total Protein 6.7, Albumin 2.5 L, Globulin 4.2, Albumin/Globulin Ratio 0.6 L 01/12/22 10:33: Lactic Acid 1.7 01/12/22 16:54: POC Glucose 249 H 01/12/22 21:48: POC Glucose 389 H 01/13/22 02:45: POC Glucose 285 H 01/13/22 05:08: WBC 17.4 H, RBC 3.37 L, Hgb 11.4 L, Hct 33.5 L, MCV 99.4 H, MCH 33.8 H, MCHC 34.0, RDW Std Deviation 43.9, RDW Coeff of Lamine 12.0, Plt Count 266, MPV 10.9, Immature Gran % (Auto) 0.600, Neut % (Auto) 82.2 H, Lymph % (Auto) 7.4 L, Andrews % (Auto) 9.2, Eos % (Auto) 0.3, Baso % (Auto) 0.3, Absolute Neuts (auto) 14.3 H, Absolute Lymphs (auto) 1.29, Nucleated RBC % 0, Differential Comment SCANNED, Diff Path Review September01/13/22 05:08: Sodium 129 L, Potassium 4.9, Chloride 98, Carbon Dioxide 18.0 L, Anion Gap 13, BUN 19 H, Creatinine 1.13 H, Estim Creat Clear Calc 48.01, Est GFR (MDRD) Af Amer 69, Est GFR (MDRD) Non-Af 57 L, BUN/Creatinine Ratio 16.8, Glucose 380 H, Calcium 7.7 L 01/13/22 05:08: Hemoglobin A1c 8.6 H 01/13/22 07:45: POC Glucose 399 H Radiography Diagnostic Testing: Radiology Impression Abdomen/Pelvis CT 01/12/22 11:35 IMPRESSION: Cellulitis of the anterior abdominal wall in the right upper quadrant laterally at the level of the umbilicus but no abscess. Electronically Signed: Gary Bro MD at 12:15 EDT , Physical Exam Const oriented x3 Constitutional Narrative: Distress from anxiety primarily Resp normal respiratory effort GI GI Narrative: Receding cellulitis of the right upper quadrant (as per pen line demarcating extent of erythema). However there is darkening and thinning of the skin centrally. The erythema remains is blanchable. There seems to be a central component of some underlying fluctuance with palpation. Patient experiences significant tenderness with exam. The area is warm to touch. Assessment & Plan Assessment/Plan (1) Abdominal wall cellulitis: (2) Abdominal wall abscess: (3) Type 1 diabetes: PLAN: Plan Is a 41-year-old female who is hospital day 2 for right upper quadrant abdominal wall cellulitis/abscess. She appears to have had a slight response with initiation of IV antibiotic therapy given a receding line of erythema and slight improvement in her white blood cell count. However she remains exceptionally tender and there is some sloughing of skin/suggestion of fluctuance centrally which makes me believe she is forming an abscess in this location. Her blood sugars remain uncontrolled at greater than 300 this morning. I have asked hospitalist service to assist in bringing this down, but in the meantime have scheduled patient for operative incision and drainage procedure under local MAC. We will plan for intraoperative cultures and thereby hopefully hasten her recovery through drainage of her wound as well as targeted antimicrobial therapy.
[2022-01-13] MEDS: Glucerna Shake 120 ML LIQUID PO (08:24)
--- NOTE | 2022-01-13 10:00 | PCM.CONS.GEN ---
Assessment & Plan Assessment/Plan (1) Abdominal wall cellulitis: PLAN: Inflammation at former site of insulin pump. Concern for abscess, OR planned. Concern for Red Man syndrome, tolerating vanc at slower speed and benadryl with no issue. Cont vanc/zosyn. Will follow, thank you (2) Type 1 diabetes: (3) Presence of insulin pump: HPI Consult Data Date of Consult: 01/13/22 HPI Narrative Reason for Consultation: abd wall cellulitis HPI Narrative: ARIADNA CAST, is a 41 F with IDDM and insulin pump, h/o Down Syndrome, presented with about 5 days progressive RLQ abd pain, redness, swelling at site of pump. Had some fever, came to ED 01/10, sent home on po keflex, sx worsened, came back and admitted no vanc/zosyn. OR planned for today. Pain a little better. Additional history obtained from mother at bedside. Full ROS performed and neg except as noted above. COUNTS INCLUDE 234 BEDS AT THE [facility] Medical History Bowel obstruction Diabetes History of type 1 diabetes mellitus HLD (hyperlipidemia) Hypoglycemia unawareness in type 1 diabetes mellitus Hypothyroidism Insulin pump titration Obesity Obesity Orthostatic hypotension Presence of insulin pump Sinus bradycardia Trisomy 21 Ventricular septal defect (VSD), membranous Home Medications ascorbate calcium (vitamin C) 500 mg tablet 500 mg PO DAILY supplement 12/24/20 [History Last Taken 01/11/22] cholecalciferol (vitamin D3) 125 mcg (5,000 unit) capsule 125 mcg PO DAILY supplement 12/24/20 [History Last Taken 01/11/22] cinnamon bark 500 mg capsule (Cinnamon) 500 mg PO DAILY supplement 12/24/20 [History Last Taken 01/11/22] insulin pump cartridge #5 ea 12/24/20 [History Last Taken Unknown] multivitamin (Daily Multi-Vitamin tablet) 1 tab PO DAILY supplement 12/24/20 [History Last Taken 01/11/22] multivitamin with minerals (Hair,Skin and Nails tablet) 1 tab PO DAILY supplement 12/24/20 [History Last Taken 01/11/22] blood-glucose meter,continuous (Dexcom G6 Firer Automatic Stoker misc) #1 ea 01/02/21 [Rx Last Taken Unknown] flash glucose sensor (FreeStyle [place] 2 Sensor kit) #2 ea 08/19/21 [Rx Last Taken Unknown] OneTouch Ultra Test (blood sugar diagnostic) #250 ea 08/20/21 [Rx Last Taken Unknown] OneTouch Ultra2 Meter (blood-glucose meter) #1 ea 08/20/21 [Rx Last Taken Unknown] glucagon 1 mg solution for injection 1 mg subcut ONCE low blood sugar 01/12/22 [History Last Taken Unknown] insulin lispro 100 unit/mL subcutaneous solution (Humalog U-100 Insulin) 100 unit subcut DAILY diabetes 01/12/22 [History Last Taken Unknown] Allergy/AdvReac Type Severity Reaction Status Date / Time vancomycin AdvReac Itching Verified 01/12/22 09:54 Family History Father Hypertension Surgical History History of hysterectomy Social History Smoking Status: Never smoker Physical Exam Const alert and no apparent distress General Appearance: cooperative HEENT normocephalic Eyes PERRL and EOMs intact bilaterally Neck supple and No nodes Resp normal air movement and clear to auscultation bilaterally Cardio regular rate and regular rhythm GI non-distended GI Narrative: RLQ pain, redness, induration Extremity General Extremity: Negative for edema Skin Skin Narrative: no other rash Neuro CN's II-XII intact bilaterally Lab / Micro Data Attestation: I reviewed the patient's lab results. Result Diagrams: 01/13/22 05:08 01/13/22 05:08 Labs: Laboratory Results - last 24 hr 01/12/22 10:33: WBC 18.6 H, RBC 3.81 L, Hgb 12.9, Hct 38.1, MCV 100.0 H, MCH 33.9 H, MCHC 33.9, RDW Std Deviation 45.2 H, RDW Coeff of Lamine 12.2, Plt Count 261, MPV 10.9, Immature Gran % (Auto) 0.700, Neut % (Auto) 82.6 H, Lymph % (Auto) 7.2 L, [place] % (Auto) 8.6, Eos % (Auto) 0.5, Baso % (Auto) 0.4, Absolute Neuts (auto) 15.4 H, Absolute Lymphs (auto) 1.34, Nucleated RBC % 0, Differential Comment , Diff Path Review September laura, Platelet Estimate ADEQUATE, RBC Morphology NORM C+C 01/12/22 10:33: PT 14.2, INR 1.1, APTT 35.5 01/12/22 10:33: Sodium 131 L, Potassium 4.5, Chloride 98, Carbon Dioxide 25.0, Anion Gap 8, BUN 14, Creatinine 1.18 H, Estim Creat Clear Calc 45.98, Est GFR (MDRD) Af Amer 65, Est GFR (MDRD) Non-Af 54 L, BUN/Creatinine Ratio 11.9, Glucose 334 H, Calcium 8.6, Total Bilirubin 0.90, AST 13 L, ALT 13, Alkaline Phosphatase 133 H, Total Protein 6.7, Albumin 2.5 L, Globulin 4.2, Albumin/Globulin Ratio 0.6 L 01/12/22 10:33: Lactic Acid 1.7 01/12/22 16:54: POC Glucose 249 H 01/12/22 21:48: POC Glucose 389 H 01/13/22 02:45: POC Glucose 285 H 01/13/22 05:08: WBC 17.4 H, RBC 3.37 L, Hgb 11.4 L, Hct 33.5 L, MCV 99.4 H, MCH 33.8 H, MCHC 34.0, RDW Std Deviation 43.9, RDW Coeff of Lamine 12.0, Plt Count 266, MPV 10.9, Immature Gran % (Auto) 0.600, Neut % (Auto) 82.2 H, Lymph % (Auto) 7.4 L, [place] % (Auto) 9.2, Eos % (Auto) 0.3, Baso % (Auto) 0.3, Absolute Neuts (auto) 14.3 H, Absolute Lymphs (auto) 1.29, Nucleated RBC % 0, Differential Comment SCANNED, Diff Path Review September laura 01/13/22 05:08: Sodium 129 L, Potassium 4.9, Chloride 98, Carbon Dioxide 18.0 L, Anion Gap 13, BUN 19 H, Creatinine 1.13 H, Estim Creat Clear Calc 48.01, Est GFR (MDRD) Af Amer 69, Est GFR (MDRD) Non-Af 57 L, BUN/Creatinine Ratio 16.8, Glucose 380 H, Calcium 7.7 L 01/13/22 05:08: Hemoglobin A1c 8.6 H 01/13/22 07:45: POC Glucose 399 H Radiology Impression Abdomen/Pelvis CT 01/12/22 11:35 IMPRESSION: Cellulitis of the anterior abdominal wall in the right upper quadrant laterally at the level of the umbilicus but no abscess. Electronically Signed: Gary Bro MD at 12:15 EDT ,
--- NOTE | 2022-01-13 10:03 | WOUNDNOTE ---
wound photo: right abdomen
--- NOTE | 2022-01-13 10:32 | PN.HOSP_ITS ---
Documented by User: Katy Sy NP, [employer]ITORY MANAGER-C 01/13/22 10:53 Subjective Subjective Patient seen and examined. Mother at bedside. Patient reports some abdominal discomfort of abscess area. Denies fever, chills. Mother states patient's blood glucose is typically fairly controlled at home. Objective Data Objective Data Vital Signs: Vital Signs Temp Pulse Resp BP Pulse Ox O2 Del Method 97.8 F 91 14 91/57 L 100 Room Air 01/13/22 08:25 01/13/22 08:25 01/13/22 08:25 01/13/22 08:25 01/13/22 08:25 01/13/22 08:25 Oxygen Delivery Method Room Air Weight: 150 lb 12.739 oz Body Mass Index (BMI) 28.8 Intake & Output: Intake and Output for Last 24 Hours 01/11/22 01/12/22 01/13/22 23:59 23:59 23:59 Intake Total 1035 / 1635 1815 / 1815 Balance 1035 / 1635 1815 / 1815 Lab / Micro Data Result Diagrams: 01/13/22 05:08 01/13/22 05:08 Labs: Laboratory Results - last 24 hr 01/12/22 10:33: WBC 18.6 H, RBC 3.81 L, Hgb 12.9, Hct 38.1, MCV 100.0 H, MCH 33.9 H, MCHC 33.9, RDW Std Deviation 45.2 H, RDW Coeff of Lamine 12.2, Plt Count 261, MPV 10.9, Immature Gran % (Auto) 0.700, Neut % (Auto) 82.6 H, Lymph % (Auto) 7.2 L, [place] % (Auto) 8.6, Eos % (Auto) 0.5, Baso % (Auto) 0.4, Absolute Neuts (auto) 15.4 H, Absolute Lymphs (auto) 1.34, Nucleated RBC % 0, Differential Comment , Diff Path Review May foll, Platelet Estimate ADEQUATE, RBC Morphology NORM C+C 01/12/22 10:33: PT 14.2, INR 1.1, APTT 35.5 01/12/22 10:33: Sodium 131 L, Potassium 4.5, Chloride 98, Carbon Dioxide 25.0, Anion Gap 8, BUN 14, Creatinine 1.18 H, Estim Creat Clear Calc 45.98, Est GFR (MDRD) Af Amer 65, Est GFR (MDRD) Non-Af 54 L, BUN/Creatinine Ratio 11.9, Glucose 334 H, Calcium 8.6, Total Bilirubin 0.90, AST 13 L, ALT 13, Alkaline Phosphatase 133 H, Total Protein 6.7, Albumin 2.5 L, Globulin 4.2, Albumin/Globulin Ratio 0.6 L 01/12/22 10:33: Lactic Acid 1.7 01/12/22 16:54: POC Glucose 249 H 01/12/22 21:48: POC Glucose 389 H 01/13/22 02:45: POC Glucose 285 H 01/13/22 05:08: WBC 17.4 H, RBC 3.37 L, Hgb 11.4 L, Hct 33.5 L, MCV 99.4 H, MCH 33.8 H, MCHC 34.0, RDW Std Deviation 43.9, RDW Coeff of Lamine 12.0, Plt Count 266, MPV 10.9, Immature Gran % (Auto) 0.600, Neut % (Auto) 82.2 H, Lymph % (Auto) 7.4 L, [place] % (Auto) 9.2, Eos % (Auto) 0.3, Baso % (Auto) 0.3, Absolute Neuts (auto) 14.3 H, Absolute Lymphs (auto) 1.29, Nucleated RBC % 0, Differential Comment SCANNED, Diff Path Review September01/13/22 05:08: Sodium 129 L, Potassium 4.9, Chloride 98, Carbon Dioxide 18.0 L, Anion Gap 13, BUN 19 H, Creatinine 1.13 H, Estim Creat Clear Calc 48.01, Est GFR (MDRD) Af Amer 69, Est GFR (MDRD) Non-Af 57 L, BUN/Creatinine Ratio 16.8, Glucose 380 H, Calcium 7.7 L 01/13/22 05:08: Hemoglobin A1c 8.6 H 01/13/22 07:45: POC Glucose 399 H Radiography Diagnostic Testing: Radiology Impression Abdomen/Pelvis CT 01/12/22 11:35 IMPRESSION: Cellulitis of the anterior abdominal wall in the right upper quadrant laterally at the level of the umbilicus but no abscess. Electronically Signed: Gary Bro MD at 12:15 EDT , Physical Exam Const alert and oriented x3 HEENT normocephalic and moist oral mucous membranes Eyes PERRL, EOMs intact bilaterally and conjunctivae normal Neck no lymphadenopathy Resp normal respiratory effort and clear to auscultation bilaterally Cardio regular rate and regular rhythm Peripheral Pulses: pulses 2+ throughout GI normal to inspection, nondistended, normoactive bowel sounds, non-tender and non-distended Extremity normal to inspection Skin no rashes or lesions noted Skin Narrative: Right abdomen erythema with indurated area and fluctuance Lesions: no lesions Rashes: no rashes Trauma: no lacerations or abrasions Neuro CN's II-XII intact bilaterally, no focal motor deficits, no sensory deficits noted and deep tendon reflexes 2+ bilaterally Psych mental status grossly normal and affect normal Assessment & Plan Assessment/Plan (1) Cellulitis of abdominal wall: PLAN: Plan 1. Abdominal wall cellulitis with abscess, failed outpatient treatment-General surgery consulted. Plan for I&D. Continue IV vancomycin and IV Zosyn. Obtain cultures per ID. Blood culture pending. Wound RN consulted. 2. Type 1 diabetes mellitus-typically on insulin pump which was taken off prior to admission. Hyperglycemia likely secondary to infection. Hemoglobin A1c 8.6%. Accu-Cheks with sliding scale insulin, scheduled lispro with meals. Initiated on long acting regimen as well. 3. Hypovolemic hyponatremia versus pseudohyponatremia related to hyperglycemia- IV fluids. Correct hyperglycemia. Trend BMP. 4. Down syndrome, trisomy 21-high functioning, lives independently. 5. Hypothyroidism-previously on Synthroid, no longer on med list? 6. Hyperlipidemia-not on statin, supplement use. DVT prophylaxis-Lovenox subcu This patient was seen by STEFFANY Corbin under the supervision of Dr. Hastings. Time spent examining patient, reviewing data and subsequent management of care: 14 minutes Documented by User: Dr. Tigre Hastings MD 01/13/22 11:43 Objective Data Lab / Micro Data Result Diagrams: 01/13/22 05:08 01/13/22 05:08 Assessment & Plan Assessment/Plan (1) Cellulitis of abdominal wall: Charges/Coding Addendum Addendum: Addendum: Dr. Hastings I personally examined the patient and reviewed the chart. I agree with the above. 41-year-old female presents from home with abdominal wall cellulitis. She does have an insulin pump and when they removed it it looks like this is the site that got infected. We will continue with broad-spectrum antibiotics, appreciate infectious disease assistance. Plan for operative debridement in the OR today in case there is an abscess though it was not very obvious on the CT scan. In the meantime will attempt to manage her blood sugars as best as possible, family seems to be hesitant with the amount of insulin that she is requiring as they feel that she does not need this much and usually at home. Discussed with them that during an infection insulin requirements can be elevated as are blood sugars. Clinical time spent in all aspects of patient care: 20 minutes Visit Charges Inpatient E&M: 59949 Subs Hosp L2
--- NOTE | 2022-01-13 11:30 | CASEMGMT ---
RN CM Face to Face with patient for initial transition planning/care coordination assessment. RN CM introduced self and role at [facility]. Patient lying in bed, alert and oriented, mother at bedside. Patient and mother willing to participate in assessment and is able to answer all questions appropriately. Care providers, pharmacy, and demographics verified. Patient and mother wish to discharge home, denies need for home health at this time. Patient and mother state they have no further needs or concerns at this time. CM to follow for discharge planning needs that may arise. PCP: Natalie Specialists: King acquisition manager; [facility] Preferred Pharmacy: [facility] [place], [facility] retail at discharge Insurance: [facility], [place] Prescription Benefit: yes Living Will/HPOA: none LNOK: mother, father Living Arrangements: Patient lives with parents in a 2 story home. Patient is independent and able to ambulate stairs. Transportation: Mother DME/HHC: Patient has grab bars at home. No previous HHC or SNF. Mother states she is willing to learn wound care if needed. Disposition Plan: Patient to discharge home with family support and follow-up plans in place. Jeniffer HERNANDEZ, RN, CM
[2022-01-13] MEDS: Insulin Glargine-YFGN 100 UNIT/ML Pen 15 UNIT SC ×2 (11:38→22:01)
--- NOTE | 2022-01-13 11:50 | NURSING ---
report called to Gianna Correa in ac
[2022-01-13 12:01] LABS: Bedside Glucose 310 mg/dL (74-106)
[2022-01-13] MEDS: Lactated Ringers 1,000 ML 15 ML IV (12:20)
[2022-01-13 12:45] LABS: Bedside Glucose 287 mg/dL (74-106)
[2022-01-13 13:22] LABS: Pathologist Review Reviewed
[2022-01-13 13:30] LABS: Pathologist Review Reviewed
--- NOTE | 2022-01-13 14:22 | OP.PCM_ITS ---
Report of Operation Date of Procedure: 01/13/22 Pre-Operative Diagnosis: Right upper quadrant abdominal wall cellulitis with co ncern for subcutaneous abscess Post-Operative Diagnosis: Right upper quadrant abdominal wall cellulitis with confirmed subcutaneous abscess Surgery/Procedure Performed:: Incision and drainage of right upper quadrant abdominal wall abscess Surgeon: Andrez Persaud Type of Anesthesia: General/Supplemental Anesthesiologist: Lavell Velasco Specimen's removed: ? Tissue culture of right upper quadrant abdominal wall abscess cavity ? Aerobic and anaerobic fluid cultures of right upper quadrant abdominal abscess cavity Drains: Vessel loop Estimated Blood Loss (mL): 20 Description of Procedure: After appropriate identification in the preoperative holding area the patient was brought to the operating room. She was accompanied by her mother to provide social support. She was positioned supine on the operating room table and sedation was begun by anesthesia. She was very resistant to nasal cannula for supplemental oxygenation and required deepening of her sedation. On noting this observation I requested verbal permission from her mother to perform a nasal swab for MRSA screening of the nares. Patient's mother readily consented and this was performed without incident. Once adequate sedation was obtained, patient's mother was escorted from the operating room and patient's right upper quadrant abdominal wall was sterilely prepped and draped in usual sterile fashion. Formal timeout followed to confirm patient and the procedure. I then began the procedure producing a local block of the area using 20 mL of 0.25% bupivacaine. Centrally in the patient's area of cellulitis there was a darkened area and thinning/sloughing of the epidermis that looked concerning for impending necrosis. This area was sharply excised as a small 1 cm ellipse. The tissue was passed off the field for culture. The base of this area was then bluntly probed until I could identify purulent fluid coming from the medial aspect of this incision. Having observed the patient's trepidation with the initial part of the procedure I thought it would be unlikely for her to tolerate any subsequent packing, so I elected to make a counterincision 3 cm lateral to my index incision for purposes of threading a draining vessel loop. But first the purulent fluid that I encountered deeply was expressed with palpation. Wound cultures were obtained of this fluid for aerobic and anaerobic cultures. The cavity was then copiously irrigated with sterile saline. A vessel loop was then threaded between the 2 incision sites and the ends were tied together. Hemostasis was obtained after application of manual pressure to the area. The site was dressed with fluffed 4 x 4 gauzes and an abdominal pad was taped in place above this absorbent padding. This concluded the operative portion of the procedure. Patient's sedation was lightened and she was taken to PACU for ongoing recovery. Admit VTE Documentation VTE Mechan Device Prophylaxis: SCD's Procedures Integumentary 10xxx: 83991 Drainage of skin abscess
[2022-01-13] MEDS: Insulin Lispro 100 UNIT/ML INSULN.PEN 10 UNIT SC (16:44)
[2022-01-13 18:35] LABS: Bedside Glucose 230 mg/dL (74-106)
[2022-01-13] MEDS: oxyCODONE 5 MG Tablet PO (19:14)
[2022-01-13 19:55] LABS: M R Staph aureus DNA By PCR Negative (Negative); Probe Check PASS; Specimen Processing Control PASS; Staph aureus DNA By PCR NEGATIVE (Negative)
[2022-01-13 22:20] LABS: Bedside Glucose 328 mg/dL (74-106)
--- NOTE | 2022-01-13 23:26 | PCM.RX.CS ---
Consult Pharmacy has been consulted to manage selected antiobiotic: Vancomycin Type of Consult: Follow-up Labs: Sodium 129 mmol/L (136-145) L 01/13/22 05:08 Potassium 4.9 mmol/L (3.5-5.1) 01/13/22 05:08 Chloride 98 mmol/L (98-107) 01/13/22 05:08 Carbon Dioxide 18.0 mmol/L (21.0-32.0) L 01/13/22 05:08 Anion Gap 13 (5-15) 01/13/22 05:08 BUN 19 mg/dL (7-18) H 01/13/22 05:08 Creatinine 1.13 mg/dL (0.55-1.02) H 01/13/22 05:08 Est GFR (MDRD) Af Amer 69 mL/min (>60) 01/13/22 05:08 Est GFR (MDRD) Non-Af 57 mL/min (>60) L 01/13/22 05:08 BUN/Creatinine Ratio 16.8 RATIO (10-20) 01/13/22 05:08 Glucose 380 mg/dL (74-106) H 01/13/22 05:08 Goal Trough: 15-20 mcg/mL Pharmacy Plan for Drug Dosing: Pharmacy Service will continue to monitor and adjust dosing as required. DOSE SCHEDULED 01/13 @ 1300 NOT ABLE TO BE STARTED UNTIL 1824 PER G-TUBE ISSUES. RETIMED NEXT DOSE TO 01/14 @ 0630 AND RETIMED TROUGH TO 01/15 @ 0600 Follow-Up Labs: Trough Vancomycin Labs to be done on [date and time ordered]: 01/15 @ 06
[2022-01-14] VITALS (10 sets, daily range): BP systolic 93–115; BP diastolic 47–97; PULSE 68–103; RESP 16–18; TEMP 36.1–36.8; O2SAT 94–97
[2022-01-14] MEDS: 0.9% Saline Lock 10 ML Syringe IV ×3 (05:17→17:16)
[2022-01-14] MEDS: DiphenhydrAMINE 50 MG/ML Syringe 12.5 MG IV ×2 (05:17→17:12)
[2022-01-14 05:58] LABS: Absolute Lymphocyte Count 1.51 X10^3/uL (0.83-4.51); Absolute Neutrophil Count 12.3 X10^3/uL (2.0-7.7); Basophil# 0.06 X10^3/uL; Basophil% 0.4 % (0-1); Eosinophil# 0.12 X10^3/uL; Eosinophils% 0.8 % (0-5); Hematocrit 34.3 % (37-47); Hemoglobin 11.8 g/dL (12.0-15.0); Lymphocyte # 1.51 X10^3/ul (0.83-4.51); Lymphocyte % 10.1 % (19-41); Mean Corp Hgb Conc 34.4 g/dL (32-36); Mean Corpuscular Hgb 34.2 pg (27.0-32.0); Mean Corpuscular Volume 99.4 fL (81-99); Monocyte% 5.4 % (0-10); NRBC Flagged by Analyzer 0 % (0-5); Neutrophil # 12.34 X10^3/uL (2.7-7.7); Neutrophil % 82.8 % (47-70); Platelet Count 288 K/mm3 (150-450); RBC Distribution Width CV 12.3 % (11.6-14.6); RBC Distribution Width SD 45.1 fl (35.1-43.9); Red Blood Count 3.45 M/mm3 (4.2-5.4); White Blood Count 14.9 K/mm3 (4.4-11.0)
[2022-01-14] MEDS: Insulin Lispro 100 UNIT/ML INSULN.PEN SC ×3 (06:14→21:07)
[2022-01-14] MEDS: Insulin Lispro 100 UNIT/ML INSULN.PEN 10 UNIT SC ×2 (06:14→11:58)
[2022-01-14] MEDS: oxyCODONE 5 MG Tablet PO ×2 (06:18→21:07)
[2022-01-14] MEDS: Vancomycin IV 500 MG/100 ML BAG 50 MG IV ×2 (06:32→17:57)
[2022-01-14 06:35] LABS: Anion Gap 5 (5-15); BUN 16 mg/dL (7-18); BUN/Creat Ratio 16.4 RATIO (10-20); Calcium,Total 8.2 mg/dL (8.5-10.1); Chloride 102 mmol/L (98-107); Creatinine, Serum 0.98 mg/dL (0.55-1.02); EST Glomerular Filtration Rate 67 mL/min (>60); Est Glom Filt Rate - Afr Amer 82 mL/min (>60); Estimated Creatinine Clearance 55.36 ml/min; Glucose 300 mg/dL (74-106); Potassium 4.6 mmol/L (3.5-5.1); Sodium Level 132 mmol/L (136-145)
[2022-01-14 06:50] LABS: Bedside Glucose 245 mg/dL (74-106)
--- NOTE | 2022-01-14 08:00 | PN.SURG_ITS ---
Subjective Subjective Patient seen and examined during AM rounds. She is found resting comfortably on arrival to the room. She agrees that her abdominal infection site is less painful this morning. Objective Data Objective Data Vital Signs: Vital Signs Temp Pulse Resp BP Pulse Ox O2 Del Method 97.0 F L 88 18 98/82 H 95 Room Air 01/14/22 03:04 01/14/22 03:04 01/14/22 03:04 01/14/22 03:04 01/14/22 07:35 01/14/22 07:35 Oxygen Delivery Method Room Air Weight: 151 lb 0.266 oz Body Mass Index (BMI) 28.8 Intake & Output: Intake and Output for Last 24 Hours 01/12/22 01/13/22 01/14/22 23:59 23:59 23:59 Intake Total 1035 / 1635 3694.75 / 3694.75 100 / 100 Balance 1035 / 1635 3694.75 / 3694.75 100 / 100 Lab / Micro Data Result Diagrams: 01/14/22 05:07 01/14/22 05:07 Labs: Laboratory Results - last 24 hr 01/12/22 10:33: Diff Path Review Reviewed 01/13/22 05:08: Diff Path Review Reviewed 01/13/22 07:45: POC Glucose 399 H 01/13/22 11:33: POC Glucose 310 H 01/13/22 12:27: POC Glucose 287 H 01/13/22 13:53: S.aureus Protein A PCR NEGATIVE, MRSA (PCR) Negative 01/13/22 16:39: POC Glucose 230 H 01/13/22 21:53: POC Glucose 328 H 01/14/22 05:07: WBC 14.9 H, RBC 3.45 L, Hgb 11.8 L, Hct 34.3 L, MCV 99.4 H, MCH 34.2 H, MCHC 34.4, RDW Std Deviation 45.1 H, RDW Coeff of Lamine 12.3, Plt Count 288, MPV 11.0, Immature Gran % (Auto) 0.500, Neut % (Auto) 82.8 H, Lymph % (Auto) 10.1 L, [place] % (Auto) 5.4, Eos % (Auto) 0.8, Baso % (Auto) 0.4, Absolute Neuts (auto) 12.3 H, Absolute Lymphs (auto) 1.51, Nucleated RBC % 0 01/14/22 05:07: Sodium 132 L, Potassium 4.6, Chloride 102, Carbon Dioxide 25.0, Anion Gap 5, BUN 16, Creatinine 0.98, Estim Creat Clear Calc 55.36, Est GFR (MD [place]) Af Amer 82, Est GFR (MDRD) Non-Af 67, BUN/Creatinine Ratio 16.4, Glucose 300 H, Calcium 8.2 L 01/14/22 06:06: POC Glucose 245 H Physical Exam Const no apparent distress Resp normal respiratory effort GI GI Narrative: Nondistended, decreasing area of erythema, but persistently erythematous around vessel loop drain. There is drainage of a mix of serous and purulent fluid to overlying gauze sponges. Patient has decreased tenderness with palpation of this area. Assessment & Plan Assessment/Plan (1) Abdominal wall abscess: PLAN: Postoperative day 1 from operative incision and drainage of right upper quadrant abdominal wall abscess. Patient has a receding margin of erythema and a improvement in both her white count and glucose control. Still awaiting culture results for blood cultures, intraoperative fluid, intraoperative tissue, and nares culture. Continue antibiotics per hospitalist and infectious disease, but look to narrow spectrum based on these results. From a wound care perspective, patient should have outer absorbent dressings changed twice daily. Surgery will plan to do 1 of these 2 dressing changes each day and request nursing assist with the other. Charges/Coding Visit Charges Inpatient E&M: 50522 Subs Hosp L2
[2022-01-14] MEDS: Enoxaparin 40 MG/0.4 ML Syringe SC (08:33)
[2022-01-14] MEDS: Senna/Docusate Sodium 1 Tablet 2 TABLET PO ×2 (08:33→21:07)
--- NOTE | 2022-01-14 09:22 | WOUNDNOTE ---
Dr Persaud had been in earlier this am to change the dressing to the right abdomen. will leave in place at this time. dressing is to be changed BID so one on day shift and and one in the evening shift.
--- NOTE | 2022-01-14 10:35 | PCM.PN.HOSP ---
Documented by User: Katy Sy NP, EVENT SPECIALIST [employer] DEMONSTRATOR-C 01/14/22 10:45 Subjective Subjective Patient seen and examined. Resting comfortably in bed. Denies fever. States right sided abdominal pain is improved. Objective Data Objective Data Vital Signs: Vital Signs Temp Pulse Resp BP Pulse Ox O2 Del Method 97.4 F L 72 16 93/68 96 Room Air 01/14/22 08:30 01/14/22 08:30 01/14/22 08:30 01/14/22 08:30 01/14/22 08:30 01/14/22 08:30 Oxygen Delivery Method Room Air Weight: 151 lb 0.266 oz Body Mass Index (BMI) 28.8 Intake & Output: Intake and Output for Last 24 Hours 01/12/22 01/13/22 01/14/22 23:59 23:59 23:59 Intake Total 1035 / 1635 3694.75 / 3694.75 200 / 200 Balance 1035 / 1635 3694.75 / 3694.75 200 / 200 Lab / Micro Data Result Diagrams: 01/14/22 05:07 01/14/22 05:07 Labs: Laboratory Results - last 24 hr 01/12/22 10:33: Diff Path Review Reviewed 01/13/22 05:08: Diff Path Review Reviewed 01/13/22 11:33: POC Glucose 310 H 01/13/22 12:27: POC Glucose 287 H 01/13/22 13:53: S.aureus Protein A PCR NEGATIVE, MRSA (PCR) Negative 01/13/22 16:39: POC Glucose 230 H 01/13/22 21:53: POC Glucose 328 H 01/14/22 05:07: WBC 14.9 H, RBC 3.45 L, Hgb 11.8 L, Hct 34.3 L, MCV 99.4 H, MCH 34.2 H, MCHC 34.4, RDW Std Deviation 45.1 H, RDW Coeff of Lamine 12.3, Plt Count 288, MPV 11.0, Immature Gran % (Auto) 0.500, Neut % (Auto) 82.8 H, Lymph % (Auto) 10.1 L, [place] % (Auto) 5.4, Eos % (Auto) 0.8, Baso % (Auto) 0.4, Absolute Neuts (auto) 12.3 H, Absolute Lymphs (auto) 1.51, Nucleated RBC % 0 01/14/22 05:07: Sodium 132 L, Potassium 4.6, Chloride 102, Carbon Dioxide 25.0, Anion Gap 5, BUN 16, Creatinine 0.98, Estim Creat Clear Calc 55.36, Est GFR (MDRD) Af Amer 82, Est GFR (MDRD) Non-Af 67, BUN/Creatinine Ratio 16.4, Glucose 300 H, Calcium 8.2 L 01/14/22 06:06: POC Glucose 245 H Physical Exam Const alert and oriented x3 HEENT normocephalic and moist oral mucous membranes Eyes PERRL, EOMs intact bilaterally and conjunctivae normal Neck no lymphadenopathy Resp normal respiratory effort and clear to auscultation bilaterally Cardio regular rate, regular rhythm and no murmurs Peripheral Pulses: pulses 2+ throughout GI normal to inspection, nondistended, normoactive bowel sounds, non-tender and non-distended Extremity normal to inspection Skin no rashes or lesions noted Skin Narrative: Right abdominal postoperative dressing intact. Lesions: no lesions Rashes: no rashes Trauma: no lacerations or abrasions Neuro CN's II-XII intact bilaterally, no focal motor deficits, no sensory deficits noted and deep tendon reflexes 2+ bilaterally Psych mental status grossly normal and affect normal Assessment & Plan Assessment/Plan (1) Abdominal wall cellulitis: PLAN: Plan 1.? Abdominal wall cellulitis with abscess, failed outpatient treatment-General surgery consulted.? Status post incision and drainage of right upper quadrant abdominal wall abscess 01/13/2022.? Continue IV vancomycin and IV Zosyn.? Abdominal abscess cultures pending.? Blood culture pending.? Wound RN consulted. Continue dressing changes as ordered. Leukocytosis trending down. 2. Type 1 diabetes mellitus-typically on insulin pump which was taken off prior to admission.? Hyperglycemia likely secondary to infection.? Hemoglobin A1c 8.6%.? Accu-Cheks with sliding scale insulin, scheduled lispro with meals. Increase glargine to 20 units twice daily. Increase sliding scale to high-dose protocol. 3. Hypovolemic hyponatremia versus pseudohyponatremia related to hyperglycemia-improved with IV fluids, correction of hyperglycemia. Trend BMP. 4. Down syndrome, trisomy 21-high functioning, lives independently. 5. Hypothyroidism-previously on Synthroid, no longer on med list? TSH August 2021 within normal limits. 6. Hyperlipidemia-not on statin, supplement use. DVT prophylaxis-Lovenox subcu This patient was seen by STEFFANY Corbin under the supervision of Dr. Hastings. Time spent examining patient, reviewing data and subsequent management of care: 13 minutes Documented by User: Dr. Tigre Hastings MD 01/14/22 14:24 Objective Data Lab / Micro Data Result Diagrams: 01/14/22 05:07 01/14/22 05:07 Assessment & Plan Assessment/Plan (1) Abdominal wall cellulitis: Charges/Coding Addendum Addendum: Dr. Hastings I personally examined the patient and reviewed the chart. I agree with the above.? 41-year-old female presents from home with abdominal wall cellulitis.? She does have an insulin pump and when they removed it it looks like this is the site that got infected.? We will continue with broad-spectrum antibiotics, appreciate infectious disease assistance.? Plan for operative debridement in the OR today in case there is an abscess though it was not very obvious on the CT scan.? In the meantime will attempt to manage her blood sugars as best as possible, family seems to be hesitant with the amount of insulin that she is requiring as they feel that she does not need this much and usually at home.? Discussed with them that during an infection insulin requirements can be elevated as are blood sugars.? Clinical time spent in all aspects of patient care: 20 minutes 01/14/2022: Feels much better today. Cultures coming back with riley FENG, narrowed to Vanco and Ancef. Awaiting sensitivities. Her abdominal pain is improved and her mental status also appears to be back to baseline. Clinical time spent in all aspects of patient care: 17 minutes Visit Charges Inpatient E&M: 60440 Subs Hosp L2
[2022-01-14] MEDS: Insulin Glargine-YFGN 100 UNIT/ML Pen 20 UNIT SC ×2 (12:01→21:08)
[2022-01-14] MEDS: Acetaminophen 325 MG Tablet 650 MG PO ×2 (12:17→19:56)
[2022-01-14 12:25] LABS: Bedside Glucose 295 mg/dL (74-106)
--- NOTE | 2022-01-14 13:05 | PCM.PN.ID ---
Physical Exam Narrative Feeling better, abd less sore, no fever Const alert General Appearance: cooperative Resp normal air movement and clear to auscultation bilaterally Cardio regular rate and regular rhythm GI soft to palpation and non-distended GI Narrative: mild soreness Skin Skin Narrative: RLQ bandaged ID ID: Route of nutrition/ use of supplements: [] Nutritional Intake: [] IV Site: [] [place] Catheter: [] Assessment & Plan Assessment/Plan (1) Abdominal wall cellulitis: PLAN: Inflammation at former site of insulin pump. Concern for Red Man syndrome, tolerating vanc at slower speed and benadryl with no issue. Now s/p OR 01/13 for I&D, cx showing staph aureus. Narrow abx to vanc/cefazolin, plan on home with po abx soon. Will follow (2) Type 1 diabetes: (3) Presence of insulin pump:
[2022-01-14] MEDS: Cefazolin 2 GM in 0.9% Normal Saline 100 ML IV ×2 (14:28→21:11)
[2022-01-14 17:36] LABS: Bedside Glucose 115 mg/dL (74-106)
--- NOTE | 2022-01-14 18:55 | NURSING ---
All documentation and medication administration completed by Sabrina Méndez RN completed under the supervision of this RN.
[2022-01-14 20:50] LABS: Bedside Glucose 219 mg/dL (74-106)
--- NOTE | 2022-01-14 21:10 | NURSING ---
pt denied any pain then when pt was helped to bathroom. she was crying and yelling out in pain. oxyir given
[2022-01-15] VITALS (8 sets, daily range): BP systolic 102–105; BP diastolic 58–74; PULSE 78–93; RESP 16–18; TEMP 36.6–36.7; O2SAT 94–98
[2022-01-15] MEDS: Cefazolin 2 GM in 0.9% Normal Saline 100 ML IV (05:26)
[2022-01-15] MEDS: DiphenhydrAMINE 50 MG/ML Syringe 12.5 MG IV (05:27)
[2022-01-15] MEDS: Acetaminophen 325 MG Tablet 650 MG PO ×2 (05:30→12:13)
[2022-01-15 06:01] LABS: Absolute Lymphocyte Count 1.62 X10^3/uL (0.83-4.51); Absolute Neutrophil Count 4.6 X10^3/uL (2.0-7.7); Basophil# 0.07 X10^3/uL; Eosinophil# 0.22 X10^3/uL; Eosinophils% 3.1 % (0-5); Hematocrit 35.5 % (37-47); Lymphocyte # 1.62 X10^3/ul (0.83-4.51); Lymphocyte % 22.5 % (19-41); Mean Corp Hgb Conc 33.8 g/dL (32-36); Mean Corpuscular Hgb 33.7 pg (27.0-32.0); Mean Corpuscular Volume 99.7 fL (81-99); Mean Platelet Vol. 10.8 fl (6.2-12.0); Monocyte# 0.62 X10^3/uL; Monocyte% 8.6 % (0-10); NRBC Flagged by Analyzer 0 % (0-5); Neutrophil # 4.58 X10^3/uL (2.7-7.7); Neutrophil % 63.7 % (47-70); Platelet Count 334 K/mm3 (150-450); RBC Distribution Width CV 12.4 % (11.6-14.6); RBC Distribution Width SD 45.6 fl (35.1-43.9); Red Blood Count 3.56 M/mm3 (4.2-5.4); White Blood Count 7.2 K/mm3 (4.4-11.0)
[2022-01-15] MEDS: oxyCODONE 5 MG Tablet PO (06:28)
[2022-01-15] MEDS: Vancomycin IV 500 MG/100 ML BAG 50 MG IV (06:28)
[2022-01-15 06:47] LABS: Anion Gap 5 (5-15); BUN 10 mg/dL (7-18); BUN/Creat Ratio 10.8 RATIO (10-20); Calcium,Total 8.1 mg/dL (8.5-10.1); Chloride 106 mmol/L (98-107); Creatinine, Serum 0.93 mg/dL (0.55-1.02); EST Glomerular Filtration Rate 72 mL/min (>60); Est Glom Filt Rate - Afr Amer 87 mL/min (>60); Estimated Creatinine Clearance 58.34 ml/min; Glucose 288 mg/dL (74-106); Potassium 4.4 mmol/L (3.5-5.1); Sodium Level 137 mmol/L (136-145)
[2022-01-15 06:52] LABS: Vancomycin, Trough Level 7.1 ug/mL (5.0-15.0)
[2022-01-15 06:56] LABS: Bedside Glucose 295 mg/dL (74-106)
--- NOTE | 2022-01-15 07:28 | PCM.RX.CS ---
Consult Pharmacy has been consulted to manage selected antiobiotic: Vancomycin Type of Consult: Follow-up Suspected Infection: Skin/Soft tissue Prior Doses of Antibiotics Received/Current Regimen: Current order 500mg iv q12h. Labs: Sodium 137 mmol/L (136-145) 01/15/22 05:50 Potassium 4.4 mmol/L (3.5-5.1) 01/15/22 05:50 Chloride 106 mmol/L (98-107) 01/15/22 05:50 Carbon Dioxide 26.0 mmol/L (21.0-32.0) 01/15/22 05:50 Anion Gap 5 (5-15) 01/15/22 05:50 BUN 10 mg/dL (7-18) 01/15/22 05:50 Creatinine 0.93 mg/dL (0.55-1.02) 01/15/22 05:50 Est GFR (MDRD) Af Amer 87 mL/min (>60) 01/15/22 05:50 Est GFR (MDRD) Non-Af 72 mL/min (>60) 01/15/22 05:50 BUN/Creatinine Ratio 10.8 RATIO (10-20) 01/15/22 05:50 Glucose 288 mg/dL (74-106) H 01/15/22 05:50 Vancomycin Trough 7.1 ug/mL (5.0-15.0) 01/15/22 05:50 Microbiology: Microbiology 01/13/22 14:05 Wound - Abdominal Gram Stain - Final 01/13/22 14:05 Wound - Abdominal Wound Culture - Preliminary Staphylococcus aureus 01/13/22 14:05 Tissue - Incision site Gram Stain - Final 01/13/22 14:05 Tissue - Incision site Wound Culture - Preliminary Gram positive organism 01/12/22 11:26 Blood Culture (Wb) - Right Hand Blood Culture - Preliminary No growth in 48 hours. 01/12/22 10:33 Blood Culture (Wb) - Anticubital Right Blood Culture - Preliminary No growth in 48 hours. Weight used for dosin.4 kg Estimated Creatinine Clearance: 58 ml/min Goal Trough: 15-20 mcg/mL Pharmacy Plan for Drug Dosing: Renal function reviewed and improved with Cr 0.93 and SCrCl ~58 ml/min. Trough level this AM sub-therapeutic at 7.1. Will increase dose to 1gm iv q12h and repeat trough before 4th dose. Pharmacy Service will continue to monitor and adjust dosing as required. Follow-Up Labs: Trough Vancomycin - 9.3.22 @0530 before 0600 dose
--- NOTE | 2022-01-15 08:17 | PCM.PN.SRG ---
Subjective Subjective Patient seen and examined during AM rounds. She reports ongoing improvement in her right lower quadrant discomfort, however, she states that she had some pain overnight that led her to tears when she was trying to sleep. Objective Data Objective Data Vital Signs: Vital Signs Temp Pulse Resp BP Pulse Ox O2 Del Method 97.8 F 78 17 104/74 96 Room Air 01/15/22 03:10 01/15/22 07:00 01/15/22 03:10 01/15/22 03:10 01/15/22 03:10 01/15/22 04:30 Oxygen Delivery Method Room Air Weight: 155 lb 3.287 oz Body Mass Index (BMI) 28.8 Intake & Output: Intake and Output for Last 24 Hours 01/13/22 01/14/22 01/15/22 23:59 23:59 23:59 Intake Total 3694.75 / 3694.75 1050 / 1050 550 / 550 Balance 3694.75 / 3694.75 1050 / 1050 550 / 550 Lab / Micro Data Result Diagrams: 01/15/22 05:50 01/15/22 05:50 Labs: Laboratory Results - last 24 hr 01/14/22 11:55: POC Glucose 295 H 01/14/22 17:04: POC Glucose 115 H 01/14/22 20:32: POC Glucose 219 H 01/15/22 05:50: Vancomycin Trough 7.1 01/15/22 05:50: WBC 7.2, RBC 3.56 L, Hgb 12.0, Hct 35.5 L, MCV 99.7 H, MCH 33.7 H, MCHC 33.8, RDW Std Deviation 45.6 H, RDW Coeff of [place]amine 12.4, Plt Count 334, MPV 10.8, Immature Gran % (Auto) 1.100 H, Neut % (Auto) 63.7, Lymph % (Auto) 22.5, [place] % (Auto) 8.6, Eos % (Auto) 3.1, Baso % (Auto) 1.0, Absolute Neuts (auto) 4.6, Absolute Lymphs (auto) 1.62, Nucleated RBC % 0 01/15/22 05:50: Sodium 137, Potassium 4.4, Chloride 106, Carbon Dioxide 26.0, Anion Gap 5, BUN 10, Creatinine 0.93, Estim Creat Clear Calc 58.34, Est GFR (MDRD) Af Amer 87, Est GFR (MDRD) Non-Af 72, BUN/Creatinine Ratio 10.8, Glucose 288 H, Calcium 8.1 L 01/15/22 06:32: POC Glucose 295 H Micro: Microbiology 01/13/22 14:05 Wound - Abdominal Gram Stain - Final 01/13/22 14:05 Wound - Abdominal Wound Culture - Preliminary Staphylococcus aureus 01/13/22 14:05 Tissue - Incision site Gram Stain - Final 01/13/22 14:05 Tissue - Incision site Wound Culture - Preliminary Gram positive organism 01/12/22 11:26 Blood Culture (Wb) - Right Hand Blood Culture - Preliminary No growth in 48 hours. 01/12/22 10:33 Blood Culture (Wb) - Anticubital Right Blood Culture - Preliminary No growth in 48 hours. Physical Exam Const oriented x3 and no apparent distress Resp normal respiratory effort GI GI Narrative: Nondistended, further decreasing area of erythema, but persistently erythematous around vessel loop drain. There is some further sloughing of the epidermal layer. There is drainage of a mix of serous and purulent fluid to overlying gauze sponges. Patient has decreased tenderness with palpation of this area. Assessment & Plan Assessment/Plan (1) Abdominal wall abscess: PLAN: Postoperative day 2 from operative incision and drainage of right upper quadrant abdominal wall abscess. Patient's wound demonstrates further improved appearance. Patient okay to begin showering. Cultures are preliminarily showing staph aureus. Sensitivities pending. Should these return today, patient would be cleared from a surgical perspective to be discharged to home with wound care instructions (changing outer dressing twice daily and showering daily). I would like to follow-up with patient 1 week from hospital discharge for wound checkup. Charges/Coding Visit Charges Inpatient E&M: 11389 Subs Hosp L2
[2022-01-15] MEDS: Insulin Lispro 100 UNIT/ML INSULN.PEN 10 UNIT SC ×2 (08:57→12:07)
[2022-01-15] MEDS: Insulin Lispro 100 UNIT/ML INSULN.PEN SC ×2 (08:58→12:07)
--- NOTE | 2022-01-15 09:58 | PCM.PN.ID ---
Physical Exam Narrative Abd still sore, had trouble sleeping. No fever. Const alert and no apparent distress Resp normal air movement and clear to auscultation bilaterally Cardio regular rate and regular rhythm GI soft to palpation and non-distended GI Narrative: mild tenderness Skin Skin Narrative: Abd wound less red ID ID: Route of nutrition/ use of supplements: [] Nutritional Intake: [] IV Site: [] [place] Catheter: [] Assessment & Plan Assessment/Plan (1) Abdominal wall cellulitis: PLAN: Abscess at former site of insulin pump. Concern for Red Man syndrome, tolerating vanc at slower speed and benadryl with no issue. Now s/p OR 01/13 for I&D, cx showing MSSA. Narrow abx to cefazolin, plan on home with po keflex 500mg tid for 10 more days. Will follow (2) Type 1 diabetes: (3) Presence of insulin pump:
[2022-01-15] MEDS: Enoxaparin 40 MG/0.4 ML Syringe SC (10:13)
--- NOTE | 2022-01-15 11:17 | CASEMGMT ---
Plan is for pt to discharge today and this RN CM to discuss with pt/mother. Pt's mom is not at bedside yet and pt requests this RN CM call her to notify her of discharge. Call to pt's mother/guardian, Pam, to update. Pam is updated on po antibx and requests they been filled at [facility] retail pharmacy. Pam states she plans on doing dressing changes and would like nursing to show her how to complete prior to discharge, Kingsley RN aware. Kingsley RN also aware to notify mother when d/c paperwork ready. Per Dr. 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 Pam, mother, voices no further questions/concerns/needs and is awaiting call from RN with discharge. Melida RN CM
--- NOTE | 2022-01-15 11:45 | PCM.DC ---
Discharge Instructions Diet Discharge Diet: No restrictions Activity Discharge Activity: Return to Normal Activity and May Shower Dressing / Incision Call your doctor if your incision/area has: Increased Redness and Foul Smelling Discharge Call your doctor if you observe: Fever of 101 or Higher, Shortness of breath, Dizziness, Fainting spells, Swelling in the ankles and Chest pain Additional Dressing/Incision Instructions:: Change the outer dressing twice daily Follow Up Care Test Results: Test results from this visit will be discussed in further detail at your follow-up appointment, if applicable. Discharge Plan Admission Admit Date/Time: 01/12/22 13:34 Attending Provider: Tigre Hastings Primary Care Provider: Kaylee Estrada Consulting Providers: William Neff ; Modesto Middleton ; Andrez Persaud Discharge Orders/Prescriptions Prescriptions: New cephalexin 500 mg capsule 500 mg PO TID 10 Days Qty: 30 0RF Continued (DME) insulin pump cartridge Cartridge See Rx Instructions .ROUTE .MEDSUPPLY Qty: 5 Rx Instructions: As directed ascorbate calcium (vitamin C) 500 mg tablet 500 mg PO DAILY multivitamin [Daily Multi-Vitamin] Tablet 1 tab PO DAILY multivitamin with minerals [Hair,Skin and Nails] Tablet 1 tab PO DAILY cholecalciferol (vitamin D3) 125 mcg (5,000 unit) capsule 125 mcg PO DAILY cinnamon bark [Cinnamon] 500 mg capsule 500 mg PO DAILY (DME) blood-glucose meter [OneTouch Ultra2 Meter] Kit See Rx Instructions .ROUTE .MEDSUPPLY Qty: 1 0RF Rx Instructions: As directed (DME) OneTouch Ultra Test Strip See Rx Instructions .ROUTE .MEDSUPPLY Qty: 250 11RF Rx Instructions: test 8 times daily insulin lispro [Humalog U-100 Insulin] 100 unit/mL solution 100 unit subcut DAILY glucagon 1 mg recon soln 1 mg subcut ONCE (DME) Dexcom G6 [employer] Administrator Misc See Rx Instructions .ROUTE .MEDSUPPLY Qty: 1 0RF Rx Instructions: As directed (DME) FreeStyle [place] 2 Sensor Kit See Rx Instructions .ROUTE .MEDSUPPLY Qty: 2 6RF Rx Instructions: As directed Referrals / Follow Up: Kaylee Estrada DO [Primary Care Provider] - Within 1 Week Andrez Persaud MD [[facility] Staff - Active Staff] - Within 1 Week Disposition Disposition (needs filled in before D/C Order can be placed): Home, Self Care
--- NOTE | 2022-01-15 11:52 | PCM.DC.SUM ---
Providers Date of Admission: 01/12/22 Primary Care Physician: Dr. 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 Routine Comment: 01/12/22 15:59 Consult: Infectious Disease Routine Consulting Provider: William Neff Reason for Consult: abd wall abscess, vanco sensitivity EMERGENT Consult: No Notified: Yes Date Notified: 01/12/22 Time Notified: 16:02 Method of Notification: Verbal 01/13/22 10:41 Consult: General Surgery Routine Consulting Provider: Andrez Persaud Reason for Consult: infection EMERGENT Consult: No Notified: Yes Date Notified: 01/13/22 Time Notified: 10:41 Method of Notification: Verbal Reason For Visit: ABDOMINAL WALL ABSCESS, CELLULITIS, HX OF DIABETES Diagnosis Discharge Diagnosis (1) Abdominal wall cellulitis: Status: Acute Code(s): L03.311 - Cellulitis of abdominal wall (2) Type 1 diabetes: Status: Chronic Code(s): E10.9 - Type 1 diabetes mellitus without complications (3) Presence of insulin pump: Status: Chronic Code(s): Z96.41 - Presence of insulin pump (external) (internal) Plan 1.? Abdominal wall cellulitis with abscess, failed outpatient treatment-General surgery consulted.? Status post incision and drainage of right upper quadrant abdominal wall abscess 01/13/2022.? Continue IV vancomycin and IV Zosyn.? Abdominal abscess cultures pending.? Blood culture pending.? Wound RN consulted. Continue dressing changes as ordered. Leukocytosis trending down. 2. Type 1 diabetes mellitus-typically on insulin pump which was taken off prior to admission.? Hyperglycemia likely secondary to infection.? Hemoglobin A1c 8.6%.? Accu-Cheks with sliding scale insulin, scheduled lispro with meals. Increase glargine to 20 units twice daily. Increase sliding scale to high-dose protocol. 3. Hypovolemic hyponatremia versus pseudohyponatremia related to hyperglycemia-improved with IV fluids, correction of hyperglycemia. Trend BMP. 4. Down syndrome, trisomy 21-high functioning, lives independently. 5. Hypothyroidism-previously on Synthroid, no longer on med list? TSH August 2021 within normal limits. 6. Hyperlipidemia-not on statin, supplement use. DVT prophylaxis-Lovenox subcu This patient was seen by STEFFANY Corbin under the supervision of Dr. Hastings. Time spent examining patient, reviewing data and subsequent management of care: 13 minutes Medications at Discharge Home Medications ascorbate calcium (vitamin C) 500 mg tablet 500 mg PO DAILY supplement 12/24/20 cholecalciferol (vitamin D3) 125 mcg (5,000 unit) capsule 125 mcg PO DAILY supplement 12/24/20 cinnamon bark 500 mg capsule (Cinnamon) 500 mg PO DAILY supplement 12/24/20 insulin pump cartridge #5 ea 12/24/20 multivitamin (Daily Multi-Vitamin tablet) 1 tab PO DAILY supplement 12/24/20 multivitamin with minerals (Hair,Skin and Nails tablet) 1 tab PO DAILY supplement 12/24/20 blood-glucose meter,continuous (Dexcom G6 [employer]ilingual [employer]) #1 ea 01/02/21 flash glucose sensor (FreeStyle [place] 2 Sensor kit) #2 ea 08/19/21 OneTouch Ultra Test (blood sugar diagnostic) #250 ea 08/20/21 OneTouch Ultra2 Meter (blood-glucose meter) #1 ea 08/20/21 glucagon 1 mg solution for injection 1 mg subcut ONCE low blood sugar 01/12/22 insulin lispro 100 unit/mL subcutaneous solution (Humalog U-100 Insulin) 100 unit subcut DAILY diabetes 01/12/22 cephalexin 500 mg capsule 500 mg PO TID 10 days #30 caps 01/15/22 Hospital Course Operations - (Abscess I&D) Procedures None Summary of Care Provided Minutes Spent on Discharge: 40 Hospital Course: Per HPI: KAYLEE CAST, is a 41 F with history of Down syndrome, high functional, ADL independent came to ED for worsening of rash, fever of abdominal wall.? Patient has insulin pump and abdominal wall.? As the patient was more drowsy and lethargic last week for 2 days, was sleeping most of the time therefore mother who lives with the patient checked her and found abdominal wall redness swelling and tenderness.? Insulin pump was relocated to right arm.? She also has glucose monitor on left side abdomen which was removed.? She came to ED on 01/10.? At that time bedside superficial ultrasound was done which showed 4 cm with no fluid collection.? 1 dose of vancomycin and Zosyn was given and patient was discharged on Keflex and Zofran for nausea.Blood sugar reading was also high at 193 which normally runs around 150.? Blood sugar was controlled and discharged home. At home patient continues to spike fever, redness swelling increased and patient is more nauseous.? Leukocytosis of 15,000.? Patient is started on IV vancomycin and Zosyn in ED but developed mild redness and itching therefore vancomycin infusion was decreased, ID consulted and Benadryl given.? She does not have respiratory distress, shortness of breath or increasing./red man syndrome Patient is further admitted Hospital Course: 1. Abdominal wall cellulitis with an abscess failed outpatient treatment?41-year-old female presents from home with an abdominal wall abscess. It was in the location of her insulin pump. She was taken to the OR for an I&D and was found to have an MSSA infection and was transition from vancomycin to Ancef. Given the MSSA infection infectious disease felt that she could can transition to Keflex 500 mg p.o. 3 times daily for 10 more days. Her white count has completely resolved. She will need to follow-up with general surgery in 1week and also recommended she follow-up with her PCP in 1 week as well. She can resume her home insulin regimen. 2. Type 1 diabetes, Down syndrome, hypothyroidism, hyperlipidemia are all chronic medical conditions which complicate her care. Her home medications were continued where appropriate. Of note in the setting of her infection her blood sugar was very elevated so she did have a pseudohyponatremia secondary to her hyperglycemia which has resolved prior to discharge. Physical Exam Narrative General: Alert, Oriented x3, Cooperative, No apparent distress HEENT: Atraumatic, PERRLA, EOMI, Normocephalic Oral: Moist Mucosa Neck: Supple, No JVD Lungs: Clear to auscultation, Normal air movement, No rhonchi, No wheeze, No rales Cardiovascular: Regular rate, Regular Rhythm, Normal S1, Normal S2, No murmurs Abdomen: Soft, Non Tender, Non-Distended, No Hepato-splenomegaly, right lower quadrant dressing is intact tenderness is minimal and redness is improved Extremities: No edema, Capillary Refill Less than 3 Seconds Skin: No rashes, No breakdown, further skin exam under abdomen Musculoskeletal: No Tenderness to Palpation of Joints or Extremities Neurological: Cranial nerves II-XII grossly intact, Motor Exam 5/5 strength throughout, Sensory exam intact to light touch and pain Psych/Mental Status: Normal Affect, Appropriate Weight / BMI Weight Weight: 155 lb 3.287 oz Body Mass Index (BMI) 28.8 ABG / Lab / Microbiology Data Result Diagrams: 01/15/22 05:50 01/15/22 05:50 Laboratory: Laboratory Results - last 24 hr 01/14/22 11:55: POC Glucose 295 H 01/14/22 17:04: POC Glucose 115 H 01/14/22 20:32: POC Glucose 219 H 01/15/22 05:50: Vancomycin Trough 7.1 01/15/22 05:50: WBC 7.2, RBC 3.56 L, Hgb 12.0, Hct 35.5 L, MCV 99.7 H, MCH 33.7 H, MCHC 33.8, RDW Std Deviation 45.6 H, RDW Coeff of Lamine 12.4, Plt Count 334, MPV 10.8, Immature Gran % (Auto) 1.100 H, Neut % (Auto) 63.7, Lymph % (Auto) 22.5, [place] % (Auto) 8.6, Eos % (Auto) 3.1, Baso % (Auto) 1.0, Absolute Neuts (auto) 4.6, Absolute Lymphs (auto) 1.62, Nucleated RBC % 0 01/15/22 05:50: Sodium 137, Potassium 4.4, Chloride 106, Carbon Dioxide 26.0, Anion Gap 5, BUN 10, Creatinine 0.93, Estim Creat Clear Calc 58.34, Est GFR (MDRD) Af Amer 87, Est GFR (MDRD) Non-Af 72, BUN/Creatinine Ratio 10.8, Glucose 288 H, Calcium 8.1 L 01/15/22 06:32: POC Glucose 295 H Microbiology: Microbiology 01/13/22 14:05 Wound - Abdominal Gram Stain - Final 01/13/22 14:05 Wound - Abdominal Wound Culture - Preliminary Staphylococcus aureus 01/13/22 14:05 Wound - Abdominal Anaerobic Culture - Preliminary 01/13/22 14:05 Tissue - Incision site Gram Stain - Final 01/13/22 14:05 Tissue - Incision site Wound Culture - Preliminary Gram positive organism 01/12/22 11:26 Blood Culture (Wb) - Right Hand Blood Culture - Preliminary No growth in 48 hours. 01/12/22 10:33 Blood Culture (Wb) - Anticubital Right Blood Culture - Preliminary No growth in 48 hours. D/C Instructions Discharge Diet: No restrictions Call your doctor if your incision/area has: Increased Redness and Foul Smelling Discharge Call your doctor if you observe: Fever of 101 or Higher, Shortness of breath, Dizziness, Fainting spells, Swelling in the ankles and Chest pain Additional Dressing/Incision Instructions: Change the outer dressing twice daily Meaningful Use Info Meaningful Use Diagnoses (Choose all that apply): None applicable Discharge Plan Admission Admit Date/Time: 01/12/22 13:34 Attending Provider: Tigre Hastings Primary Care Provider: Kaylee Estrada Consulting Providers: William Neff ; Modesto Middleton ; Andrez Persaud Discharge Orders/Prescriptions Prescriptions: New cephalexin 500 mg capsule 500 mg PO TID 10 Days Qty: 30 0RF Continued (DME) insulin pump cartridge Cartridge See Rx Instructions .ROUTE .MEDSUPPLY Qty: 5 Rx Instructions: As directed ascorbate calcium (vitamin C) 500 mg tablet 500 mg PO DAILY multivitamin [Daily Multi-Vitamin] Tablet 1 tab PO DAILY multivitamin with minerals [Hair,Skin and Nails] Tablet 1 tab PO DAILY cholecalciferol (vitamin D3) 125 mcg (5,000 unit) capsule 125 mcg PO DAILY cinnamon bark [Cinnamon] 500 mg capsule 500 mg PO DAILY (DME) blood-glucose meter [OneTouch Ultra2 Meter] Kit See Rx Instructions .ROUTE .MEDSUPPLY Qty: 1 0RF Rx Instructions: As directed (DME) OneTouch Ultra Test Strip See Rx Instructions .ROUTE .MEDSUPPLY Qty: 250 11RF Rx Instructions: test 8 times daily insulin lispro [Humalog U-100 Insulin] 100 unit/mL solution 100 unit subcut DAILY glucagon 1 mg recon soln 1 mg subcut ONCE (DME) Dexcom G6 Bilingual [employer] Misc See Rx Instructions .ROUTE .MEDSUPPLY Qty: 1 0RF Rx Instructions: As directed (DME) FreeStyle [place] 2 Sensor Kit See Rx Instructions .ROUTE .MEDSUPPLY Qty: 2 6RF Rx Instructions: As directed Referrals / Follow Up: Kaylee Estrada DO [Primary Care Provider] - Within 1 Week Andrez Persaud MD [[facility] Staff - Active Staff] - Within 1 Week Disposition Disposition (needs filled in before D/C Order can be placed): Home, Self Care Charges/Coding Visit Charges Inpatient E&M: 56652 Disch Hosp
[2022-01-15 12:01] LABS: Bedside Glucose 213 mg/dL (74-106)
[2022-01-15] MEDS: Insulin Glargine-YFGN 100 UNIT/ML Pen 20 UNIT SC (12:09)
== END 2022-01-15 13:43 | disposition home or self-care (01) | DRG 920 ==
LOC: ED 13:40 → PCU 17:17
PROVIDERS: Anesthesiology; Nurse Practitioner Family; Surgery; Admitting Provider Internal Medicine; Emergency Provider Emergency Medicine; PCP Family Medicine; Visit Provider Family Medicine
PROC: 0J980ZX Drainage of Abdomen Subcutaneous Tissue and Fascia, Open Approach, Diagnostic (ICD-10-PCS; principal; 2022-01-13 14:05)
DX: T85.72XA Infection and inflammatory reaction due to insulin pump, initial encounter (principal); L03.311 Cellulitis of abdominal wall; L02.211 Cutaneous abscess of abdominal wall; Q21.0 Ventricular septal defect; E10.65 Type 1 diabetes mellitus with hyperglycemia; E78.5 Hyperlipidemia, unspecified; E03.9 Hypothyroidism, unspecified; B95.62 Methicillin resistant Staphylococcus aureus infection as the cause of diseases classified elsewhere; Z79.4 Long term (current) use of insulin; Q90.9 Down syndrome, unspecified; Z79.899 Other long term (current) drug therapy; Z96.41 Presence of insulin pump (external) (internal)
CPT/HCPCS: 36415; 74177; 80048; 80053; 80202; 82009; 82962; 83036; 83605; 85025; 85610; 85730; 87015; 87040; 87070; 87075; 87077; 87102; 87116; 87186; 87205; 87206; 87640; 96365; 96367; 96375; 97161; 97166; 97802; 99283; 99284; J7030; J7120; Q9967; A4216; J2405

== ENCOUNTER 2022-03-28 17:46 | Inpatient (IN) | payer MEDICARE, MEDICAID, SELFPAY ==
[2022-03-28 17:47] VITALS: BP 111/70; PULSE 71; RESP 16; TEMP 34; O2SAT 111; BMI 31.8
--- NOTE | 2022-03-28 18:25 | EKG12_ITS ---
Test Reason : ALT LOC Blood Pressure : / mmHG Vent. Rate : 083 BPM Atrial Rate : 071 BPM P-R Int : 178 ms QRS Dur : 066 ms QT Int : 384 ms P-R-T Axes : -12 -33 227 degrees QTc Int : 451 ms Sinus rhythm with frequent Premature ventricular complexes Left axis deviation Septal infarct , age undetermined Marked ST abnormality, possible inferior subendocardial injury Abnormal ECG Confirmed by TILA ABRAMS, KATIE ([id number]), news editor BERNIE REES ([id number]) on 03/31/2022 11:11:28 AM Referred By: Confirmed By:KATIE ADORNO MD
[2022-03-28 18:39] LABS: Absolute Lymphocyte Count 2.61 X10^3/uL (0.83-4.51); Absolute Neutrophil Count 1.2 X10^3/uL (2.0-7.7); Basophil# 0.02 X10^3/uL; Basophil% 0.5 % (0-1); Eosinophil# 0.06 X10^3/uL; Eosinophils% 1.4 % (0-5); Hematocrit 40.6 % (37-47); Hemoglobin 13.7 g/dL (12.0-15.0); Lymphocyte # 2.61 X10^3/ul (0.83-4.51); Lymphocyte % 61.3 % (19-41); Mean Corp Hgb Conc 33.7 g/dL (32-36); Mean Corpuscular Hgb 33.4 pg (27.0-32.0); Mean Platelet Vol. 10.9 fl (6.2-12.0); Monocyte# 0.37 X10^3/uL; Monocyte% 8.7 % (0-10); NRBC Flagged by Analyzer 0 % (0-5); Neutrophil # 1.19 X10^3/uL (2.7-7.7); Neutrophil % 27.9 % (47-70); Platelet Count 200 K/mm3 (150-450); RBC Distribution Width SD 43.8 fl (35.1-43.9); White Blood Count 4.3 K/mm3 (4.4-11.0)
[2022-03-28 18:51] LABS: Bacteria 0 SEEN /hpf (None Seen); Mucous, Urine 0 SEEN /hpf (<or=2+); Red Blood Cells-Urine 0 SEEN /hpf (0-5); Squamous Epithelial Cells - UA 0 SEEN /hpf (5-10); White Blood Cells 0 SEEN /hpf (0-5)
[2022-03-28 18:55] LABS: ALB/GLOB Ratio 0.7 RATIO (0.9-2.4); AST(SGOT) 29 U/L (15-37); Alanine Aminotransfer ALT/SGPT 18 U/L (13-56); Albumin, Serum 2.2 g/dL (3.2-5.0); Alkaline Phosphatase 76 U/L (45-117); Anion Gap 8 (5-15); BUN 7 mg/dL (7-18); Calcium,Total 6.6 mg/dL (8.5-10.1); Chloride 106 mmol/L (98-107); Creatinine, Serum 0.54 mg/dL (0.55-1.02); EST Glomerular Filtration Rate 133 mL/min (>60); Est Glom Filt Rate - Afr Amer 161 mL/min (>60); Estimated Creatinine Clearance 100.47 ml/min; Globulin 3.2 g/dL (2.2-4.2); Glucose 203 mg/dL (74-106); Potassium 3.8 mmol/L (3.5-5.1); Protein, Total 5.4 g/dL (6.4-8.2); Sodium Level 134 mmol/L (136-145)
[2022-03-28] MEDS: 0.9% Normal Saline 1,000 ML 999 ML IV (19:00)
[2022-03-28 19:02] LABS: Color, Urine Yellow (Yellow); Glucose, Dipstick 1000 mg/dl (Normal); Ketone-Dipstick Negative (Negative); Leukocyte Esterase-Dipstick Negative /ul (Negative); Nitrite-Dipstick Negative (Negative); Occult Blood-Urine Negative /ul (Negative); Protein-Dipstick Negative (Negative); Urine Bilirubin Dipstick Negative (Negative); Urine Clarity Clear (Clear); Urine Urobilinogen Normal (Normal); Urine pH 6.5 (5.0 - 8.0)
[2022-03-28 19:05] VITALS: BP 103/65; PULSE 73; RESP 15; TEMP 36.7; O2SAT 96
[2022-03-28 19:10] LABS: Lactic Acid 2.5 mmol/L (0.4-1.9)
--- NOTE | 2022-03-28 19:10 | RAD_ITS ---
INDICATION: Fever EXAMINATION/TECHNIQUE: X-RAY - XR Chest 1 View COMPARISON: Chest x-ray 02/26/2016. FINDINGS: LINES/DEVICES: None. LUNGS: No airspace opacity to suggest consolidation. No pleural effusion, nodule or pneumothorax. There is increased conspicuity of interstitial markings. MEDIASTINUM AND CARDIOVASCULAR STRUCTURES: Normal size and contour of the cardiomediastinal silhouette. Prominent interstitial markings may represent vascular congestion. BONES AND SOFT TISSUES: No fracture or focal osseous lesion. RAD/Chest 1 View (Portable) IMPRESSION: 1. Increased interstitial markings may represent vascular congestion. Correlate clinically for volume overload or decreased cardiac output. Heart is within normal size limits. Electronically Signed: Andrez Rod DO at 20:09 EST ,
--- NOTE | 2022-03-28 19:30 | EX.ED.DYSGE1 ---
HPI History of Present Illness Chief Complaint: Alt LOC Informant: parent Limited: other (Down syndrome) Onset/Context/Timing Onset: Days Context: Gradual Onset Timing: Continuous Quality: Fever Location: Generalized Worsened by: Nothing Relieved by: Nothing Narrative Narrative: Patient presents with fever and altered mental status that became worse today. Mother states patient has been running fever for the past couple days. Mother states patient has had a cough. Mother states patient has had some upper respiratory symptoms. Mother states the patient took a COVID test 2 days ago which was negative. Mother states patient has not been coughing up any sputum. Mother states patient has been complaining of some abdominal pain. Mother denies any vomiting. Mother denies any urinary complaints. Patient has a history of Down syndrome and is a poor informant. [facility] Medical History Abdominal wall abscess Bowel obstruction Diabetes HLD (hyperlipidemia) Hypoglycemia unawareness in type 1 diabetes mellitus Hypothyroidism Insulin pump titration Obesity Obesity Orthostatic hypotension Presence of insulin pump Presence of insulin pump Sinus bradycardia Trisomy 21 Type 1 diabetes Ventricular septal defect (VSD), membranous Home Medications ascorbate calcium (vitamin C) 500 mg tablet 500 mg PO DAILY supplement 12/24/20 [History Last Taken 01/11/22] cholecalciferol (vitamin D3) 125 mcg (5,000 unit) capsule 125 mcg PO DAILY supplement 12/24/20 [History Last Taken 01/11/22] cinnamon bark 500 mg capsule (Cinnamon) 500 mg PO DAILY supplement 12/24/20 [History Last Taken 01/11/22] insulin pump cartridge #5 ea 12/24/20 [History Last Taken Unknown] multivitamin (Daily Multi-Vitamin tablet) 1 tab PO DAILY supplement 12/24/20 [History Last Taken 01/11/22] multivitamin with minerals (Hair,Skin and Nails tablet) 1 tab PO DAILY supplement 12/24/20 [History Last Taken 01/11/22] blood-glucose meter,continuous (Dexcom G6 [facility] [place] #1 ea 01/02/21 [Rx Last Taken Unknown] flash glucose sensor (FreeStyle [place] 2 Sensor kit) #2 ea 08/19/21 [Rx Last Taken Unknown] OneTouch Ultra Test (blood sugar diagnostic) #250 ea 08/20/21 [Rx Last Taken Unknown] OneTouch Ultra2 Meter (blood-glucose meter) #1 ea 08/20/21 [Rx Last Taken Unknown] glucagon 1 mg solution for injection 1 mg subcut ONCE low blood sugar 01/12/22 [History Last Taken Unknown] cephalexin 500 mg capsule 500 mg PO TID 10 days #30 caps 01/15/22 [Rx Last Taken Unknown] Humalog U-100 Insulin 100 unit/mL subcutaneous solution (insulin lispro) 100 unit subcut DAILY #30 mL 03/10/22 [Rx Last Taken Unknown] Omnipod 5 G6 Intro Kit (Gen 5) subcutaneous cartridge with controller (insulin pump cart,auto,BT-cntr) #1 ea 03/11/22 [Rx Last Taken Unknown] insulin pump cart,automated,BT (Omnipod 5 G6 Pods (Gen 5) subcutaneous cartridge) #30 ea 03/11/22 [Rx Last Taken Unknown] escitalopram oxalate 5 mg tablet (Lexapro) 5 mg 03/28/22 [History Last Taken Unknown] Allergy/AdvReac Type Severity Reaction Status Date / Time vancomycin AdvReac Itching Verified 03/10/22 09:51 Family History Father Hypertension Surgical History History of hysterectomy History of incision and drainage Social History Smoking Status: Never smoker alcohol intake: never substance use type: does not use ROS ROS ED Review of Systems ROS Unobtainable: due to mental condition Constitutional Constitutional ED: Reports fever(s) ENT ENT ED: Reports rhinorrhea and sore throat Respiratory/Chest Respiratory/Chest: Reports cough EXAM Physical Exam Const Vital Signs: 03/28/22 17:47 03/28/22 17:57 03/28/22 18:25 Temperature 93.2 F L Temperature Source Axillary Pulse Rate 71 Respiratory Rate 16 Respiratory Pattern Normal Blood Pressure 111/70 Blood Pressure Mean 83 Pulse Ox 111 Oxygen Delivery Method Room Air Room Air 03/28/22 19:05 03/28/22 20:00 03/28/22 21:00 Temperature 98.1 F 99.1 F 100.1 F H Temperature Source Core Core Core Pulse Rate 73 74 83 Respiratory Rate 15 19 H 13 Respiratory Pattern Blood Pressure 103/65 94/61 92/53 L Blood Pressure Mean 77 72 66 Pulse Ox 96 92 94 Oxygen Delivery Method Room Air Room Air Room Air 03/28/22 22:00 Temperature 99.6 F H Temperature Source Core Pulse Rate 82 Respiratory Rate 16 Respiratory Pattern Blood Pressure 96/53 L Blood Pressure Mean 67 Pulse Ox 94 Oxygen Delivery Method Room Air Positive well nourished and well developed General Appearance ED: well developed and NAD HEENT Reports moist mucous membranes Neck supple and no JVD Resp normal respiratory effort Auscultation: diminished lung sounds diffuse Cardio regular rate and regular rhythm GI normal to inspection, nondistended, normoactive bowel sounds and non-distended Auscultation: normoactive bowel sounds Palpation: tender epigastric, LLQ, RLQ, LUQ, RUQ, periumbilical and suprapubic Neuro CN's II-XII intact bilaterally and no sensory deficits noted Sensorium / Orientation: alert Motor Exam: strength 5/5 throughout MDM MDM MDM Narrative Medical decision making narrative: Patient was given IV fluids. Patient was given a dose of Tylenol. CBC shows a white blood cell count of 4.3. Comprehensive metabolic profile was within normal limits. Lactate was slightly elevated 2.5. Urinalysis does not show any evidence of urinary tract infection. EKG was obtained. On my interpretation it shows a sinus rhythm with a rate of 83. There are frequent PVCs. There is left axis deviation at -33. There are nonspecific ST-T wave changes. PA interval, QRS interval, QTC intervals are normal. COVID-19 rapid antigen was obtained and was negative. Influenza A and influenza B rapid antigens were obtained and were negative. Portable chest x-ray was obtained. There is 1 view. On my interpretation, there is questionable increase in vascular markings. There is no acute abnormality. Radiologist also interpreted the x-rays and agrees. CT scan of the abdomen and pelvis was obtained. There is no acute intra-abdominal abnormality. This was interpreted by the radiologist and reviewed by myself. Patient is starting to feel somewhat better. Patient is more awake and alert and talkative. Case was discussed with the hospitalist. She will admit the patient for observation. Patient was given a repeat bolus of normal saline. Family understood and was agreeable with the plan. All questions were answered. Lab Data Attestation: I reviewed the patient's lab results. Labs: Laboratory Results - last 24 hr 03/28/22 03/28/22 03/28/22 18:18 18:18 18:18 WBC 4.3 L RBC 4.10 L Hgb 13.7 Hct 40.6 MCV 99.0 MCH 33.4 H MCHC 33.7 RDW Std Deviation 43.8 RDW Coeff of Lamine 12.0 Plt Count 200 MPV 10.9 Immature Gran % (Auto) 0.200 Neut % (Auto) 27.9 L Lymph % (Auto) 61.3 H [place] % (Auto) 8.7 Eos % (Auto) 1.4 Baso % (Auto) 0.5 Absolute Neuts (auto) 1.2 L Absolute Lymphs (auto) 2.61 Nucleated RBC % 0 PT INR APTT Sodium 134 L Potassium 3.8 Chloride 106 Carbon Dioxide 20.0 L Anion Gap 8 BUN 7 Creatinine 0.54 L Estim Creat Clear Calc 100.47 Est GFR (MDRD) Af Amer 161 Est GFR (MDRD) Non-Af 133 BUN/Creatinine Ratio 13.0 Glucose 203 H Lactic Acid 2.5 H* Calcium 6.6 L Total Bilirubin 0.20 AST 29 ALT 18 Alkaline Phosphatase 76 Total Protein 5.4 L Albumin 2.2 L Globulin 3.2 Albumin/Globulin Ratio 0.7 L Urine Color Urine Clarity Urine pH Ur Specific [place] Urine Protein Urine Glucose (UA) Urine Ketones Urine Occult Blood Urine Nitrite Urine Bilirubin Urine Urobilinogen Ur Leukocyte Esterase Urine RBC Urine WBC Ur Squamous Epith Cells Urine Bacteria Urine Mucus 03/28/22 03/28/22 18:44 19:25 WBC RBC Hgb Hct MCV MCH MCHC RDW Std Deviation RDW Coeff of [place] Plt Count MPV Immature Gran % (Auto) Neut % (Auto) Lymph % (Auto) [place] % (Auto) Eos % (Auto) Baso % (Auto) Absolute Neuts (auto) Absolute Lymphs (auto) Nucleated RBC % PT 13.2 INR 1.0 APTT 29.7 Sodium Potassium Chloride Carbon Dioxide Anion Gap BUN Creatinine Estim Creat Clear Calc Est GFR (MDRD) Af Amer Est GFR (MDRD) Non-Af BUN/Creatinine Ratio Glucose Lactic Acid Calcium Total Bilirubin AST ALT Alkaline Phosphatase Total Protein Albumin Globulin Albumin/Globulin Ratio Urine Color Yellow Urine Clarity Clear Urine pH 6.5 Ur Specific [place] 1.010 Urine Protein Negative Urine Glucose (UA) 1000 H Urine Ketones Negative Urine Occult Blood Negative Urine Nitrite Negative Urine Bilirubin Negative Urine Urobilinogen Normal Ur Leukocyte Esterase Negative Urine RBC 0 SEEN Urine WBC 0 SEEN Ur Squamous Epith Cells 0 SEEN Urine Bacteria 0 SEEN Urine Mucus 0 SEEN Radiography Chest X-Ray - ED: 1 View, Read by ED Physician, Read by Radiologist, Lungs (Mild increased interstitial markings) and No Acute Disease Diagnostic Testing: Clinical Impression(s) from Imaging Studies Chest X-Ray 03/28/22 19:10 IMPRESSION: 1. Increased interstitial markings may represent vascular congestion. Correlate clinically for volume overload or decreased cardiac output. Heart is within normal size limits. Electronically Signed: Andrez Rod DO at 20:09 EST , Abdomen/Pelvis CT 03/28/22 20:45 IMPRESSION: Minimal residual stranding density subcutaneous fat right anterior abdominal wall, where previously seen cellulitis was demonstrated. No focal fluid collection. No new findings compared to prior comparison exam. Electronically Signed: Andrez Rod DO at 21:42 EST , EKG Initial EKG: Attestation: I personally reviewed and interpreted this EKG as follows: Interpretation: Sinus Rhythm (83) and Non-Specific ST Changes Prior: Changed (The nonspecific ST-T wave changes are new compared to previous EKG dated 10/01/2020) Discharge Plan Dx/Rx/DC Orders Clinical Impression: Encephalopathy, Viral illness Disposition Disposition: Acute Care Hospital [facility]
[2022-03-28 19:42] LABS: Prothrombin Time (Protime)PT. 13.2 SECONDS (11.7-14.9)
[2022-03-28 19:43] LABS: Partial Thromboplast Time 29.7 Seconds (24.1-36.2)
[2022-03-28 20:00] VITALS: BP 94/61; PULSE 74; RESP 19; TEMP 37.3; O2SAT 92
--- NOTE | 2022-03-28 20:45 | CT_ITS ---
INDICATION: Abdominal pain EXAMINATION: CT ABDOMEN AND PELVIS WITHOUT CONTRAST - CT Abdomen And Pelvis W/O Contrast Injection TECHNIQUE: Helically acquired images were obtained of the abdomen and pelvis without oral or IV contrast. A radiation dose optimization technique was used for this scan. IV Contrast dosage and agent: None. Oral contrast: None. COMPARISON: 09/12/2021. FINDINGS: LOWER CHEST: Lung bases are clear. No cardiomegaly or pericardial effusion. LIVER: Homogeneous. No focal mass. GALLBLADDER AND BILIARY TREE: No calcified gallstones. No gallbladder distension or wall edema. No intra- or extrahepatic biliary ductal dilation. PANCREAS: No focal cystic or solid mass. SPLEEN: Normal size without focal cystic or solid mass. ADRENAL GLANDS: No nodules. KIDNEYS, URETERS and BLADDER: Normal renal size and position. No mass. No hydronephrosis. Bladder is collapsed around a HOLMAN catheter. PERITONEUM: No ascites or free air. No other fluid collection. BOWEL: No evidence of acute appendicitis. No abnormally distended bowel loops or air fluid levels. No wall thickening or mass. No focal inflammatory changes. LYMPH NODES: No enlarged mesenteric or retroperitoneal lymph nodes. VESSELS: Aorta is non-dilated. REPRODUCTIVE ORGANS: Uterus appears to be absent. 17 mm hyperdensity right adnexal region, unchanged from the prior exam. Ovaries not clearly visualized on this unenhanced exam. ABDOMINAL WALL: No discrete abdominal or pelvic wall hernia. Small residual stranding density the subcutaneous fat right lower quadrant region, just below the level of the umbilicus, where cellulitis was demonstrated on prior comparison CT. BONES: No lytic or blastic abnormality. CT/Abdomen/Pelvis without Cont IMPRESSION: Minimal residual stranding density subcutaneous fat right anterior abdominal wall, where previously seen cellulitis was demonstrated. No focal fluid collection. No new findings compared to prior comparison exam. Electronically Signed: Andrez Rod DO at 21:42 EST ,
[2022-03-28 21:00] VITALS: BP 92/53; PULSE 83; RESP 13; TEMP 37.8; O2SAT 94
[2022-03-28 22:00] VITALS: BP 96/53; PULSE 82; RESP 16; TEMP 37.6; O2SAT 94
[2022-03-28] MEDS: Acetaminophen 325 MG Tablet 650 MG PO (22:03)
[2022-03-28] MEDS: 0.9% Normal Saline 1,000 ML 1000 ML IV (22:03)
--- NOTE | 2022-03-28 22:20 | HP.PCM.HOS_ITS ---
HPI - General General Date of Admission: 03/28/22 Date of Service: 03/28/22 Chief Complaint: Encephalopathy, URI type symptoms, abd discomfort. HPI Narrative The patient is a 41 y/o F w/ PMHx: Trisomy 21 w/ Hx VSD, Obesity, Diabetes mellitus type I w/ insulin pump placement, HLD, Hypothyroidism who presents to the [facility] ED on 03/28/22 with history of over a week potentially week and a half of persistent fevers and encephalopathy worsening on day of presentation reporting that its been ongoing for at least a couple days with associated no nproductive cough with recent upper respiratory type symptoms as well as vague abdominal discomfort complaints with nausea without any emesis with COVID test at home -2 days prior to current presentation prompting ED evaluation. Patient's mother denies any specific urinary complaints from the patient but does report that she was recently ill herself and that there has been COVID at her work. In the ED patient had been initially significantly fatigued and lethargic with difficulty even interacting however following IV fluids and upon hospitalist evaluation she was able to answer questions appropriately and per family present confirmed significantly improving. Work-up in the ED included T98.1, heart rate 73, BP 103/65, respiratory rate 15, 96% on room air, CBC with WC 4.3, hemoglobin 13.7, platelet 200 with lymphopenia, unremarkable coags, CMP with sodium 134, carbon oxide 20, BUN/creatinine 7/0.54, glucose 203, lactic acid 2.5, calcium 6.6, unremarkable hepatic profile otherwise, urinalysis with glucose 1000 otherwise unremarkable with no obvious evidence of dehydration or UTI, rapid COVID antigen and influenza negative, blood culture x2 pending per ED, urine culture pending per ED, chest x-ray with increased interstitial markings possibly vascular congestion, heart within normal limits, EKG with sinus rhythm with frequent PVCs with nonspecific changes with no acute evidence of ischemia, CT A/P with minimal residual stranding density subcutaneous fat right anterior abdominal wall with no acute fluid collection demonstrated and well-healed with no acute findings otherwise. In the ED patient ministered 2 L normal saline as well as Tylenol 650 mg p.o. x1. [facility] Medical History (Updated 03/28/22 @ 22:[address] Geovanny Rosales, DO) Abdominal wall abscess Bowel obstruction Diabetes HLD (hyperlipidemia) Hypoglycemia unawareness in type 1 diabetes mellitus Hypothyroidism Insulin pump titration Obesity Obesity Orthostatic hypotension Presence of insulin pump Presence of insulin pump Sinus bradycardia Trisomy 21 Type 1 diabetes Ventricular septal defect (VSD), membranous Home Medications ascorbate calcium (vitamin C) 500 mg tablet 500 mg PO DAILY supplement 12/24/20 [History Last Taken 01/11/22] cholecalciferol (vitamin D3) 125 mcg (5,000 unit) capsule 125 mcg PO DAILY supplement 12/24/20 [History Last Taken 01/11/22] cinnamon bark 500 mg capsule (Cinnamon) 500 mg PO DAILY supplement 12/24/20 [History Last Taken 01/11/22] insulin pump cartridge #5 ea 12/24/20 [History Last Taken Unknown] multivitamin (Daily Multi-Vitamin tablet) 1 tab PO DAILY supplement 12/24/20 [History Last Taken 01/11/22] multivitamin with minerals (Hair,Skin and Nails tablet) 1 tab PO DAILY supplement 12/24/20 [History Last Taken 01/11/22] blood-glucose meter,continuous (Dexcom G6 Transition Teacher mis) #1 ea 01/02/21 [Rx Last Taken Unknown] flash glucose sensor (FreeStyle [place] 2 Sensor kit) #2 ea 08/19/21 [Rx Last Taken Unknown] OneTouch Ultra Test (blood sugar diagnostic) #250 ea 08/20/21 [Rx Last Taken Unknown] OneTouch Ultra2 Meter (blood-glucose meter) #1 ea 08/20/21 [Rx Last Taken Unknown] glucagon 1 mg solution for injection 1 mg subcut ONCE low blood sugar 01/12/22 [History Last Taken Unknown] cephalexin 500 mg capsule 500 mg PO TID 10 days #30 caps 01/15/22 [Rx Last Taken Unknown] Humalog U-100 Insulin 100 unit/mL subcutaneous solution (insulin lispro) 100 unit subcut DAILY #30 mL 03/10/22 [Rx Last Taken Unknown] Omnipod 5 G6 Intro Kit (Gen 5) subcutaneous cartridge with controller (insulin pump cart,auto,BT-cntr) #1 ea 03/11/22 [Rx Last Taken Unknown] insulin pump cart,automated,BT (Omnipod 5 G6 Pods (Gen 5) subcutaneous cartridge) #30 ea 03/11/22 [Rx Last Taken Unknown] escitalopram oxalate 5 mg tablet (Lexapro) 5 mg 03/28/22 [History Last Taken Unknown] levothyroxine 50 mcg tablet mcg 03/28/22 [History Last Taken Unknown] Allergy/AdvReac Type Severity Reaction Status Date / Time vancomycin AdvReac Itching Verified 03/10/22 09:51 Family History Father Hypertension other (Patient without any marked maternal family history including HD, DM, CA.) Surgical History (Updated 03/28/22 @ 23:[address] Shannan Hopson MD) History of hysterectomy History of incision and drainage History of intestinal surgery Social History Smoking Status: Never smoker alcohol intake: never substance use type: does not use ROS ROS Narrative Admission Review of Systems: CONSTITUTIONAL: No weight loss, + fever, chills, weakness or fatigue. HEENT: + Congestion, rhinorrhea, sore throat. Eyes: No visual loss, blurred vision, double vision or yellow sclerae. Ears, Nose, Throat: No hearing loss, sneezing. SKIN: No rash or itching, lesions, wounds. CARDIOVASCULAR: No chest pain, chest pressure or chest discomfort, palpitations, syncope, edema, orthopnea. RESPIRATORY: + Cough, no marked sputum production. No shortness of breath, wheezing, hemoptysis. GASTROINTESTINAL: + anorexia, nausea without vomiting, vague abdominal discomfort. No diarrhea, melena, BRBPR. GENITOURINARY: No dysuria, frequency, urgency or retention. NEUROLOGICAL: + Underlying Down Syndrome. No dizziness, syncope, paralysis, ataxia, numbness or tingling in the extremities, focal weakness, change in bowel or bladder control, seizure. MUSCULOSKELETAL: + muscle, back pain, joint pain or stiffness. HEMATOLOGIC: No anemia, bleeding or bruising. LYMPHATICS: No enlarged nodes. No history of splenectomy. PSYCHIATRIC: + history of depression or anxiety. ENDOCRINOLOGIC: No reports of sweating, cold or heat intolerance. No polyuria or polydipsia. ALLERGIES: No history of asthma, hives, eczema or rhinitis. Vital Signs Vital Signs Vital Signs: 03/28/22 17:47 03/28/22 17:57 03/28/22 18:25 Temperature 93.2 F L Temperature Source Axillary Pulse Rate 71 Respiratory Rate 16 Respiratory Pattern Normal Blood Pressure 111/70 Blood Pressure Mean 83 Pulse Ox 111 Oxygen Delivery Method Room Air Room Air 03/28/22 19:05 03/28/22 20:00 03/28/22 21:00 Temperature 98.1 F 99.1 F 100.1 F H Temperature Source Core Core Core Pulse Rate 73 74 83 Respiratory Rate 15 19 H 13 Respiratory Pattern Blood Pressure 103/65 94/61 92/53 L Blood Pressure Mean 77 72 66 Pulse Ox 96 92 94 Oxygen Delivery Method Room Air Room Air Room Air 03/28/22 22:00 Temperature 99.6 F H Temperature Source Core Pulse Rate 82 Respiratory Rate 16 Respiratory Pattern Blood Pressure 96/53 L Blood Pressure Mean 67 Pulse Ox 94 Oxygen Delivery Method Room Air Weight Weight: 163 lb 2.273 oz Body Mass Index (BMI) 31.8 Physical Exam Narrative Physical Examination: General: Significant improved since initial ED arrival, awakening, alert, answering orientation questions, oriented to self, place and some recent events but definitely not consistent with her prior baseline, fatigued and ill- appearing. Skin: normal color, normal turgor, no icterus, no cyanosis. HEENT: AT/NC, EOMI, PERRLA, dry MM, significantly irritated nares, no carotid bruits or JVD noted. Lungs: Significantly diminished, greater bases, no evidence of any respiratory distress, no rales, ronchi or wheezing. Heart: Currently regular rate with regular rhythm; no gallop, rub audible. Abdomen: soft, obese, mild generalized discomfort w/ palpation, but of note patient does have chronic abdominal discomfort, difficult to assess distention, normal distant BS, no obvious HSM. Extremities: no cyanosis, clubbing or edema. Neurological: Significant improved since initial ED arrival, awakening, alert, answering orientation questions, oriented to self, place and some recent events but definitely not consistent with her prior baseline, fatigued and ill- appearing, cognitive function currently improving, suspect nearing baseline inta ct; pupils equally reactive to light and accommodation; cranial nerves grossly normal, moving all 4 extremities, no focal deficits, strength severely globally decreased secondary to acute presentation. Psychiatric: affect appears fatigued and ill-appearing, no acute evidence of depressive or anxiety feelings. Results Lab / Micro Data Result Diagrams: 03/28/22 18:18 03/28/22 18:18 Labs: Laboratory Results - last 24 hr 03/28/22 18:18: WBC 4.3 L, RBC 4.10 L, Hgb 13.7, Hct 40.6, MCV 99.0, MCH 33.4 H, MCHC 33.7, RDW Std Deviation 43.8, RDW Coeff of Lamine 12.0, Plt Count 200, MPV 10.9, Immature Gran % (Auto) 0.200, Neut % (Auto) 27.9 L, Lymph % (Auto) 61.3 H, [place] % (Auto) 8.7, Eos % (Auto) 1.4, Baso % (Auto) 0.5, Absolute Neuts (auto) 1.2 L, Absolute Lymphs (auto) 2.61, Nucleated RBC % 0 03/28/22 18:18: Sodium 134 L, Potassium 3.8, Chloride 106, Carbon Dioxide 20.0 L , Anion Gap 8, BUN 7, Creatinine 0.54 L, Estim Creat Clear Calc 100.47, Est GFR (MDRD) Af Amer 161, Est GFR (MDRD) Non-Af 133, BUN/Creatinine Ratio 13.0, Glucose 203 H, Calcium 6.6 L, Total Bilirubin 0.20, AST 29, ALT 18, Alkaline Phosphatase 76, Total Protein 5.4 L, Albumin 2.2 L, Globulin 3.2, Albumin/Globulin Ratio 0.7 L 03/28/22 18:18: Lactic Acid 2.5 H* 03/28/22 18:44: Urine Color Yellow, Urine Clarity Clear, Urine pH 6.5, Ur Specific [place] 1.010, Urine Protein Negative, Urine Glucose (UA) 1000 H, Urine Ketones Negative, Urine Occult Blood Negative, Urine Nitrite Negative, Urine Bilirubin Negative, Urine Urobilinogen Normal, Ur Leukocyte Esterase Negative, Urine RBC 0 SEEN, Urine WBC 0 SEEN, Ur Squamous Epith Cells 0 SEEN, Urine Bacteria 0 SEEN, Urine Mucus 0 SEEN 03/28/22 19:25: PT 13.2, INR 1.0, APTT 29.7 Micro: Microbiology 03/28/22 18:49 Nasal Secretion SARS-CoV-2 & FLU Antigen (Rapid) - Final Radiology Impression Chest X-Ray 03/28/22 19:10 IMPRESSION: 1. Increased interstitial markings may represent vascular congestion. Correlate clinically for volume overload or decreased cardiac output. Heart is within normal size limits. Electronically Signed: Andrez Rod DO at 20:09 EST , Abdomen/Pelvis CT 03/28/22 20:45 IMPRESSION: Minimal residual stranding density subcutaneous fat right anterior abdominal wall, where previously seen cellulitis was demonstrated. No focal fluid collection. No new findings compared to prior comparison exam. Electronically Signed: Andrez Rod DO at 21:42 EST , Assessment & Plan Assessment/Plan (1) Encephalopathy: (2) Viral illness: PLAN: Plan The patient is a 41 y/o F w/ PMHx: Trisomy 21 w/ Hx VSD, Obesity, Diabetes mellitus type I w/ insulin pump placement, HLD, Hypothyroidism who presents to the [facility] ED on 03/28/22 with history of over a week potentially week and a half of persistent fevers and encephalopathy worsening on day of presentation reporting that its been ongoing for at least a couple days with associated nonproductive cough with recent upper respiratory type symptoms as well as vague abdominal discomfort complaints with nausea without any emesis with COVID test at home -2 days prior to current presentation prompting ED evaluation. #1. Acute Encephalopathy secondary to Suspected Acute viral syndrome with transient hypotension improved with IV fluids: Patient afebrile upon presentation, maintaining appropriate saturations, chest x-ray with questionable overload however given presentation more concerning for a viral acute illness, will admit to medical surgical floor, maintain on oxygen with wean as tolerated to room air, PRN albuterol, encourage HOB, IS parameters w/ pending sputum cultures if becomes productive, obtain full respiratory viral panel as well as COVID PCR and urine antigens, procalcitonin pending, repeat CXR in AM, will judiciously hydrate and plan repeat chest x-ray in a.m. to see if anything further developing. #2. Lactic acidosis: Lactic acid mildly elevated, 2.5 upon presentation, suspected secondary to #1, will continue judicious hydration and repeat level per facility protocol. #3. Hypocalcemia: Admission calcium 6.6, ionized calcium requested, supplemented, repeat level in AM. #4. Diabetes mellitus, insulin-dependent type 1: We will continue patient home insulin pump, will continue Accu-Cheks and insulin sliding scale per pump or peripherally if necessary, allow ADA diet as long as oral intake safe. #5. Down syndrome, trisomy: Complicates presentation, history of VSD noted in the chart. #6. Obesity: Weight loss and lifestyle changes encouraged. #7. Anxiety and depression: We will continue patient home low-escitalopram regimen. #8. Hyperlipidemia: Not on regimen, defer to outpatient. #9. Hypothyroidism: Continue home synthroid regimen. #10. DVT prophylaxis: SCDs, Lovenox. Charges/Coding Visit Charges OBSV E&M: 11443 Initial observation care L3
[2022-03-28 22:31] VITALS: BP 94/66; PULSE 83; RESP 15; TEMP 37.5; O2SAT 95
[2022-03-28 22:32] LABS: Reflex Lactate? Y
[2022-03-28 23:15] LABS: Bedside Glucose 59 mg/dL (74-106)
[2022-03-28 23:19] LABS: Lactic Acid 1.6 mmol/L (0.4-1.9)
--- NOTE | 2022-03-28 23:19 | NURSING ---
patient's mom removed insulin pump from patient's arm
[2022-03-28 23:36] LABS: Bedside Glucose 104 mg/dL (74-106)
[2022-03-28 23:40] LABS: Procalcitonin 0.08 ng/mL (0.00-0.09)
[2022-03-29] VITALS (28 sets, daily range): BP systolic 53–113; BP diastolic 35–81; PULSE 64–95; RESP 16–20; TEMP 36.2–37.2; O2SAT 93–100; BMI 29.7
[2022-03-29] MEDS: Calcium Gluconate 1 GM/10 ML Vial IVP (00:16)
[2022-03-29] MEDS: 0.9% Normal Saline 1,000 ML 150 ML IV ×4 (00:16→23:36)
[2022-03-29] MEDS: 0.9% Saline Lock 10 ML Syringe IV ×3 (00:17→21:01)
[2022-03-29] MEDS: Ondansetron 4 MG/2 ML Vial IV ×2 (03:28→16:45)
[2022-03-29] MEDS: Acetaminophen 325 MG Tablet 650 MG PO ×2 (03:30→18:38)
[2022-03-29] MEDS: Levothyroxine 50 MCG Tablet PO (05:28)
--- NOTE | 2022-03-29 05:55 | RAD_ITS ---
STUDY: X-RAY CHEST REASON FOR EXAM: Female, 41 years old. Dyspnea, cough TECHNIQUE: Single AP portable view of the chest. COMPARISON: None. FINDINGS: The lungs are clear and expanded. There is no demonstrated pleural abnormality. Normal size heart. Normal mediastinum and janneth. Normal visualized pulmonary arteries. Normal visualized aortic arch and descending thoracic aorta. There is mild dextroscoliosis of the thoracic spine. There is compression fracture T6 of undetermined age. Normal visualized ribs, clavicles, and shoulders. There is no demonstrated abnormality of the visualized soft tissue structures of the upper abdomen. RAD/Chest 1 View (Portable) IMPRESSION: There is mild dextroscoliosis of the thoracic spine. There is compression fracture T6 of undetermined age. Electronically Signed: Roc Campbell MD at 7:08 EST ,
[2022-03-29 06:41] LABS: Absolute Lymphocyte Count 1.47 X10^3/uL (0.83-4.51); Absolute Neutrophil Count 2.2 X10^3/uL (2.0-7.7); Basophil# 0.01 X10^3/uL; Basophil% 0.2 % (0-1); Eosinophil# 0.04 X10^3/uL; Hematocrit 35.5 % (37-47); Lymphocyte # 1.47 X10^3/ul (0.83-4.51); Lymphocyte % 36.6 % (19-41); Mean Corp Hgb Conc 33.8 g/dL (32-36); Mean Corpuscular Hgb 33.7 pg (27.0-32.0); Mean Corpuscular Volume 99.7 fL (81-99); Mean Platelet Vol. 10.7 fl (6.2-12.0); Monocyte# 0.28 X10^3/uL; NRBC Flagged by Analyzer 0 % (0-5); Neutrophil % 54.7 % (47-70); Platelet Count 182 K/mm3 (150-450); RBC Distribution Width CV 12.2 % (11.6-14.6); RBC Distribution Width SD 45.6 fl (35.1-43.9); Red Blood Count 3.56 M/mm3 (4.2-5.4)
[2022-03-29 07:30] LABS: Bedside Glucose 462 mg/dL (74-106)
[2022-03-29 07:57] LABS: Glucose 479 mg/dL (74-106)
[2022-03-29 08:08] LABS: ALB/GLOB Ratio 0.8 RATIO (0.9-2.4); AST(SGOT) 15 U/L (15-37); Alanine Aminotransfer ALT/SGPT 15 U/L (13-56); Alkaline Phosphatase 63 U/L (45-117); Anion Gap 7 (5-15); BUN 8 mg/dL (7-18); BUN/Creat Ratio 15.7 RATIO (10-20); Calcium,Total 6.3 mg/dL (8.5-10.1); Chloride 111 mmol/L (98-107); Creatinine, Serum 0.51 mg/dL (0.55-1.02); EST Glomerular Filtration Rate 143 mL/min (>60); Est Glom Filt Rate - Afr Amer 173 mL/min (>60); Estimated Creatinine Clearance 106.38 ml/min; Globulin 2.5 g/dL (2.2-4.2); Glucose 324 mg/dL (74-106); Potassium 3.8 mmol/L (3.5-5.1); Protein, Total 4.5 g/dL (6.4-8.2); Sodium Level 138 mmol/L (136-145)
[2022-03-29] MEDS: Insulin Lispro 100 UNIT/ML INSULN.PEN 15 UNIT SC (08:13)
[2022-03-29] MEDS: 0.9% Normal Saline 1,000 ML 999 ML IV ×2 (08:37→09:19)
[2022-03-29] MEDS: Midodrine HCl 5 MG Tablet 10 MG PO (09:11)
[2022-03-29] MEDS: Insulin Lispro 100 UNIT/ML INSULN.PEN SC ×2 (10:05→21:03)
[2022-03-29] MEDS: Enoxaparin 40 MG/0.4 ML Syringe SC (10:16)
[2022-03-29] MEDS: Escitalopram Oxalate 10 MG Tablet 5 MG PO (10:17)
--- NOTE | 2022-03-29 10:58 | PN.HOSP_ITS ---
Subjective Subjective Patient was seen and examined today, she voices no complaints, her blood pressure has been in the 80s systolic, I have ordered another fluid bolus and asked nursing to notify me if her blood pressure does not come up. Patient has no complaints of any chills or fever at this time Objective Data Objective Data Vital Signs: Vital Signs Temp Pulse Resp BP Pulse Ox O2 Del Method 97.9 F 76 16 96/72 100 Room Air 03/29/22 10:24 03/29/22 10:24 03/29/22 10:24 03/29/22 10:24 03/29/22 10:24 03/29/22 10:24 Oxygen Delivery Method Room Air Weight: 69.2 kg Body Mass Index (BMI) 29.7 Intake & Output: Intake and Output for Last 24 Hours 03/27/22 03/28/22 03/29/22 23:59 23:59 23:59 Intake Total 1999 3247.5 / 3247.5 Output Total 2750 / 2750 Balance 1999 497.5 / 497.5 Lab / Micro Data Result Diagrams: 03/29/22 06:14 03/29/22 07:12 Labs: Laboratory Results - last 24 hr 03/28/22 18:18: WBC 4.3 L, RBC 4.10 L, Hgb 13.7, Hct 40.6, MCV 99.0, MCH 33.4 H, MCHC 33.7, RDW Std Deviation 43.8, RDW Coeff of Lamine 12.0, Plt Count 200, MPV 10.9, Immature Gran % (Auto) 0.200, Neut % (Auto) 27.9 L, Lymph % (Auto) 61.3 H, [place] % (Auto) 8.7, Eos % (Auto) 1.4, Baso % (Auto) 0.5, Absolute Neuts (auto) 1.2 L, Absolute Lymphs (auto) 2.61, Nucleated RBC % 0 03/28/22 18:18: Sodium 134 L, Potassium 3.8, Chloride 106, Carbon Dioxide 20.0 L , Anion Gap 8, BUN 7, Creatinine 0.54 L, Estim Creat Clear Calc 100.47, Est GFR (MDRD) Af Amer 161, Est GFR (MDRD) Non-Af 133, BUN/Creatinine Ratio 13.0, Glucose 203 H, Calcium 6.6 L, Total Bilirubin 0.20, AST 29, ALT 18, Alkaline Phosphatase 76, Total Protein 5.4 L, Albumin 2.2 L, Globulin 3.2, Albumin/Globulin Ratio 0.7 L 03/28/22 18:18: Lactic Acid 2.5 H* 03/28/22 18:44: Urine Color Yellow, Urine Clarity Clear, Urine pH 6.5, Ur Specific [place] 1.010, Urine Protein Negative, Urine Glucose (UA) 1000 H, Urine Ketones Negative, Urine Occult Blood Negative, Urine Nitrite Negative, Urine Bilirubin Negative, Urine Urobilinogen Normal, Ur Leukocyte Esterase Negative, Urine RBC 0 SEEN, Urine WBC 0 SEEN, Ur Squamous Epith Cells 0 SEEN, Urine Bacteria 0 SEEN, Urine Mucus 0 SEEN 03/28/22 19:25: PT 13.2, INR 1.0, APTT 29.7 03/28/22 22:50: Procalcitonin 0.08 03/28/22 22:50: Lactic Acid 1.6 03/28/22 22:54: POC Glucose 59 L 03/28/22 23:00: COVID-19 (HARRY) Not Detected 03/28/22 23:17: POC Glucose 104 03/29/22 06:14: WBC 4.0 L, RBC 3.56 L, Hgb 12.0, Hct 35.5 L, MCV 99.7 H, MCH 33.7 H, MCHC 33.8, RDW Std Deviation 45.6 H, RDW Coeff of Lamine 12.2, Plt Count 182, MPV 10.7, Immature Gran % (Auto) 0.500, Neut % (Auto) 54.7, Lymph % (Auto) 36.6, [place] % (Auto) 7.0, Eos % (Auto) 1.0, Baso % (Auto) 0.2, Absolute Neuts (auto) 2.2, Absolute Lymphs (auto) 1.47, Nucleated RBC % 0 03/29/22 06:14: Sodium 138, Potassium 3.8, Chloride 111 H, Carbon Dioxide 20.0 L , Anion Gap 7, BUN 8, Creatinine 0.51 L, Estim Creat Clear Calc 106.38, Est GFR (MDRD) Af Amer 173, Est GFR (MDRD) Non-Af 143, BUN/Creatinine Ratio 15.7, Glucose 324 H, Calcium 6.3 L*, Total Bilirubin 0.40, AST 15, ALT 15, Alkaline Phosphatase 63, Total Protein 4.5 L, Albumin 2.0 L, Globulin 2.5, Albumin/Globulin Ratio 0.8 L 03/29/22 07:09: POC Glucose 462 H* 03/29/22 07:12: Glucose 479 H* Micro: Microbiology 03/28/22 18:44 Urine Catheter - [place] Urine Culture - Preliminary Culture exhibits no growth. 03/28/22 23:00 Mucosa - Nasopharyngeal Respiratory Panel (PCR) - Final 03/28/22 18:44 Urine Catheter - Catheter Legionella Antigen - Final 03/28/22 18:44 Urine Catheter - Catheter Streptococcus pneumoniae Antigen (M - Final 03/28/22 18:49 Nasal Secretion SARS-CoV-2 & FLU Antigen (Rapid) - Final Radiography Diagnostic Testing: Radiology Impression Chest X-Ray 03/28/22 19:10 IMPRESSION: 1. Increased interstitial markings may represent vascular congestion. Correlate clinically for volume overload or decreased cardiac output. Heart is within normal size limits. Electronically Signed: Andrez Rod DO at 20:09 EST , Abdomen/Pelvis CT 03/28/22 20:45 IMPRESSION: Minimal residual stranding density subcutaneous fat right anterior abdominal wall, where previously seen cellulitis was demonstrated. No focal fluid collection. No new findings compared to prior comparison exam. Electronically Signed: Andrez Rod DO at 21:42 EST , Chest X-Ray 03/29/22 05:55 IMPRESSION: There is mild dextroscoliosis of the thoracic spine. There is compression fracture T6 of undetermined age. Electronically Signed: Roc Campbell MD at 7:08 EST , Physical Exam Const alert and no apparent distress Constitutional Narrative: Patient has signs of cognitive impairment General Appearance: cooperative, well kempt and well developed Orientation / Consciousness: awake HEENT normocephalic, head/scalp atraumatic and moist oral mucous membranes Eyes PERRL, EOMs intact bilaterally and conjunctivae normal Neck supple, no JVD, thyroid normal and no carotid bruits General: trachea midline Resp normal respiratory effort and clear to auscultation bilaterally Auscultation: Negative for rales, rhonchi or wheezes Cardio regular rate, regular rhythm, S1 normal heart sound, S2 normal heart sound, no murmurs, no rub and no gallops GI normal to inspection, nondistended, normoactive bowel sounds, soft to palpation, non-tender and non-distended Extremity no clubbing, cyanosis or edema Skin no rashes or lesions noted General Skin Exam: no breakdown Neuro CN's II-XII intact bilaterally, no focal motor deficits and no sensory deficits noted Sensorium / Orientation: awake and alert Psych Psych Narrative: Patient shows signs of cognitive impairment Assessment & Plan Assessment/Plan (1) Type 1 diabetes: PLAN: Plan 1. Acute encephalopathy-suspected to be secondary from acute viral syndrome, patient is hypotensive at this time, I will administer fluids to the patient and reevaluate the patient today if needed. #2 elevated lactic acid-patient's last lactic acid level was normal, etiology of the increased lactic acid is unknown at this time #3 hypocalcemia-patient will be given additional calcium, calcium level will be rechecked tomorrow #4 type 1 diabetes-patient does not have her insulin pump on, we will cover her with sliding scale insulin based on every 4 hour blood sugar readings #5 Down syndrome-complicates care, management, recovery, and prognosis #6 hypothyroidism-continue home thyroid medication #7 hypotension-etiology unclear at this point, patient will be given vigorous fluid administration and reevaluated. Charges/Coding Visit Charges OBSV E&M: 11972 Subsequent observation care L2
[2022-03-29 13:15] LABS: Bedside Glucose 81 mg/dL (74-106)
[2022-03-29 14:46] LABS: Bedside Glucose 69 mg/dL (74-106)
[2022-03-29 16:55] LABS: Bedside Glucose 102 mg/dL (74-106)
[2022-03-29] MEDS: proCHLORPERazine 10 MG/2 ML Vial 5 MG IV (21:02)
[2022-03-29 21:26] LABS: Bedside Glucose 264 mg/dL (74-106)
[2022-03-30] VITALS (15 sets, daily range): BP systolic 82–104; BP diastolic 54–74; PULSE 42–109; RESP 16–18; TEMP 36.3–36.8; O2SAT 92–98
[2022-03-30] MEDS: Insulin Lispro 100 UNIT/ML INSULN.PEN SC ×6 (01:55→22:20)
[2022-03-30] MEDS: 0.9% Normal Saline 1,000 ML 999 ML IV (01:55)
[2022-03-30 02:15] LABS: Bedside Glucose 186 mg/dL (74-106)
[2022-03-30] MEDS: Loperamide 2 MG Capsule PO (02:53)
--- NOTE | 2022-03-30 03:55 | ECHOD_ITS ---
Reason For Study: ARRYTHMIA Procedure This was a 2D Doppler, Color Flow transthoracic echocardiogram. Exam performed portable in patient room. Left Ventricle Normal LV size. The estimated ejection fraction is 15 %. There is severe global hypokinesis of the left ventricle. Right Ventricle Normal RV size. Normal systolic function. Atria Normal left atrium. Normal right atrium. Mitral Valve Bileaflet diffuse mitral valve thickening. Mild (1+) eccentric mitral valve insufficiency. Tricuspid Valve Normal tricuspid valve. Mild to moderate (1-2+) tricuspid valve insufficiency. Pulmonary artery systolic pressure is 48 mmHg. Aortic Valve Normal aortic valve. Trisinus/trileaflet aortic valve. Pulmonic Valve Normal pulmonic valve. Great Vessels Normal aortic root. The pulmonary artery is normal size. Normal inferior vena cava. Pericardium/Pleural No pericardial effusion. MMode/2D Measurements & Calculations LVIDd: 5.6 cm IVSd: 0.59 cm Ao root diam: 2.3 cm LVIDs: 5.0 cm LVPWd: 0.72 cm FS: 11.5 % LAV(MOD-sp4): 28.7 ml LVAd ap4: 34.5 cm2 SV(MOD-sp4): 26.8 ml LVLd ap4: 8.2 cm EDV(MOD-sp4): 119.0 ml EDV(sp4-el): 123.8 ml LVAs ap4: 31.2 cm2 LVLs ap4: 8.8 cm ESV(MOD-sp4): 92.2 ml ESV(sp4-el): 94.2 ml EF(MOD-sp4): 22.5 % EF(sp4-el): 23.8 % SV(sp4-el): 29.5 ml LA A4 area: 13.6 cm2 LA dimension(2D): 3.1 cm RA A4 area: 9.6 cm2 Doppler Measurements & Calculations MV E max yannick: 91.0 cm/sec MV V2 max: 126.9 cm/sec Ao V2 max: 106.9 cm/sec MV max P.5 mmHg Ao max P.7 mmHg MV V2 mean: 71.8 cm/sec Ao V2 mean: 78.2 cm/sec MV mean P.5 mmHg Ao mean P.7 mmHg MV V2 VTI: 27.7 cm Ao V2 VTI: 18.9 cm LV V1 max: 82.2 cm/sec PA V2 max: 113.9 cm/sec TR max yannick: 319.1 cm/sec LV V1 max P.2 mmHg PA max PG (full): 3.1 mmHg TR max P.7 mmHg LV V1 mean P.7 mmHg PA V2 mean: 81.9 cm/sec LV V1 mean: 56.3 cm/sec PA mean PG (full): 1.7 mmHg LV V1 VTI: 13.9 cm ECHO/Echo Complete Interpretation Summary Normal LV size. The estimated ejection fraction is 15 %. Mild (1+) eccentric mitral valve insufficiency. Pulmonary artery systolic pressure is 48 mmHg. Mild to moderate (1-2+) tricuspid valve insufficiency. Compared to previous study, the left ventricular systolic function has worsened .. Ordering Physician: Shannan Hopson Referring Physician: Kaylee Estrada Performed By: Frannie Berkowitz RCS
--- NOTE | 2022-03-30 03:58 | PCM.HOSP.N ---
Hospitalist Note Patient with persistent lower BPs. Still no obvious source for SIRS/fever. Currently on monitor evidence trigeminy. Given low BPs defer BB. Last ECHO noted 2020. Will obtain mag, obtain ECHO given current presentation with also unclear source of SIRS/fever, although no noted positive Bld Cx but to be cautious and will ask for ID involvement.
[2022-03-30] MEDS: Levothyroxine 50 MCG Tablet PO (05:51)
[2022-03-30] MEDS: 0.9% Normal Saline 1,000 ML 150 ML IV ×3 (05:57→18:41)
[2022-03-30 06:15] LABS: Bedside Glucose 211 mg/dL (74-106)
[2022-03-30 07:37] LABS: Absolute Lymphocyte Count 1.09 X10^3/uL (0.83-4.51); Absolute Neutrophil Count 7.2 X10^3/uL (2.0-7.7); Basophil# 0.01 X10^3/uL; Basophil% 0.1 % (0-1); Hemoglobin 12.2 g/dL (12.0-15.0); Lymphocyte # 1.09 X10^3/ul (0.83-4.51); Mean Corp Hgb Conc 32.1 g/dL (32-36); Mean Corpuscular Hgb 33.2 pg (27.0-32.0); Mean Corpuscular Volume 103.5 fL (81-99); Mean Platelet Vol. 10.8 fl (6.2-12.0); Monocyte% 7.7 % (0-10); NRBC Flagged by Analyzer 0 % (0-5); Neutrophil # 7.24 X10^3/uL (2.7-7.7); Neutrophil % 79.5 % (47-70); Platelet Count 194 K/mm3 (150-450); RBC Distribution Width CV 13.2 % (11.6-14.6); RBC Distribution Width SD 50.4 fl (35.1-43.9); Red Blood Count 3.67 M/mm3 (4.2-5.4); White Blood Count 9.1 K/mm3 (4.4-11.0)
--- NOTE | 2022-03-30 07:37 | PN.HOSP_ITS ---
Subjective Subjective Patient is a 41-year-old lady with history of Down syndrome presented with altered mental status and fever Patient was seen in conjunction with the mother. According to patient's mom her clinical condition is much improved. Patient is awake oriented to place and patient was able to tell the date of dates and how many siblings she had. Her blood glucose control however is not optimal adjusted insulin Objective Data Objective Data Vital Signs: Vital Signs Temp Pulse Resp BP Pulse Ox O2 Del Method 98.2 F 61 16 99/56 L 95 Room Air 03/30/22 03:25 03/30/22 04:33 03/30/22 03:25 03/30/22 03:25 03/30/22 03:25 03/30/22 03:25 Oxygen Delivery Method Room Air Weight: 69.2 kg Body Mass Index (BMI) 29.7 Intake & Output: Intake and Output for Last 24 Hours 03/28/22 03/29/22 03/30/22 23:59 23:59 23:59 Intake Total 1999 5032.5 / 5032.5 1952.5 / 1952.5 Output Total 3100 / 3200 250 / 250 Balance 1999 1932.5 / 1832.5 1702.5 / 1702.5 Lab / Micro Data Result Diagrams: 03/30/22 07:29 03/30/22 07:29 Labs: Laboratory Results - last 24 hr 03/29/22 06:14: Sodium 138, Potassium 3.8, Chloride 111 H, Carbon Dioxide 20.0 L , Anion Gap 7, BUN 8, Creatinine 0.51 L, Estim Creat Clear Calc 106.38, Est GFR (MDRD) Af Amer 173, Est GFR (MDRD) Non-Af 143, BUN/Creatinine Ratio 15.7, Glucose 324 H, Calcium 6.3 L*, Total Bilirubin 0.40, AST 15, ALT 15, Alkaline Phosphatase 63, Total Protein 4.5 L, Albumin 2.0 L, Globulin 2.5, Albumin/Globu keagan Ratio 0.8 L 03/29/22 07:12: Glucose 479 H* 03/29/22 12:51: POC Glucose 81 03/29/22 14:07: POC Glucose 69 L 03/29/22 16:13: POC Glucose 102 03/29/22 21:02: POC Glucose 264 H 03/30/22 01:54: POC Glucose 186 H 03/30/22 05:51: POC Glucose 211 H Micro: Microbiology 03/29/22 20:15 Stool Enteric Bacteriology - Final 03/29/22 20:15 Stool C. difficile DNA Amplification - Final 03/28/22 18:44 Urine Catheter - [place] Urine Culture - Preliminary Culture exhibits no growth. 03/28/22 23:00 Mucosa - Nasopharyngeal Respiratory Panel (PCR) - Final 03/28/22 18:44 Urine Catheter - Catheter Legionella Antigen - Final 03/28/22 18:44 Urine Catheter - Catheter Streptococcus pneumoniae Antigen (M - Final 03/28/22 18:49 Nasal Secretion SARS-CoV-2 & FLU Antigen (Rapid) - Final Physical Exam Narrative GENERAL: Patient in no apparent distress HEENT: Atraumatic; normocephalic EYES; Anicteric, Normal Conjunctiva NECK; supple, normal thyroid, RESPIRATORY: Diminished to auscultation CARDIOVASCULAR: Regular S1 S2, GI: soft, normoactive bowel sounds, : No Renal angle tenderness; EXTREMITIES: No edema, no clubbing, MUSCULOSKELETAL: no muscle wasting NEURO: Awake; no lateralizing signs. SKIN: No Rash PSYCH; Flat affect Assessment & Plan Assessment/Plan (1) Type 1 diabetes: PLAN: Plan Patient is a 41-year-old lady with history of Down syndrome presented with altered mental status and fever 1. Acute encephalopathy ? Secondary to dehydration from acute viral syndrome. Patient has been treated symptomatically level of sensorium appears to be improving 2. Diabetes mellitus type 2 ? Patient is on an insulin pump, this was held on admission please on Accu-Cheks before meals and at bedtime. With patient experiencing hypoglycemic episode did add long-acting insulin 3. Down syndrome ? Complicating care 4. Congenital heart disease ? As a result of patient Down syndrome 5. Hypothyroidism - Patient is on levothyroxine home dose continued 6. DVT prophylaxis ? SC Lovenox Charges/Coding Visit Charges Inpatient E&M: 45097 Subs Hosp L2
[2022-03-30 07:54] LABS: Magnesium 1.7 mg/dL (1.6-2.6)
[2022-03-30 08:20] LABS: ALB/GLOB Ratio 0.7 RATIO (0.9-2.4); AST(SGOT) 673 U/L (15-37); Alanine Aminotransfer ALT/SGPT 150 U/L (13-56); Albumin, Serum 2.3 g/dL (3.2-5.0); Alkaline Phosphatase 109 U/L (45-117); Anion Gap 10 (5-15); BUN 15 mg/dL (7-18); BUN/Creat Ratio 15.7 RATIO (10-20); Calcium,Total 7.1 mg/dL (8.5-10.1); Chloride 107 mmol/L (98-107); Creatinine, Serum 0.96 mg/dL (0.55-1.02); EST Glomerular Filtration Rate 69 mL/min (>60); Est Glom Filt Rate - Afr Amer 83 mL/min (>60); Estimated Creatinine Clearance 56.51 ml/min; Globulin 3.1 g/dL (2.2-4.2); Glucose 184 mg/dL (74-106); Potassium 4.6 mmol/L (3.5-5.1); Protein, Total 5.4 g/dL (6.4-8.2); Sodium Level 137 mmol/L (136-145)
[2022-03-30] MEDS: Escitalopram Oxalate 10 MG Tablet 5 MG PO (10:07)
[2022-03-30] MEDS: Enoxaparin 40 MG/0.4 ML Syringe SC (10:07)
[2022-03-30 10:35] LABS: Bedside Glucose 192 mg/dL (74-106)
--- NOTE | 2022-03-30 11:30 | CASEMGMT ---
RN CM Face to Face with patient for initial transition planning/care coordination assessment. RN CM introduced self and role at [facility]. Patient lying in bed, alert and oriented, mother and legal guardian, Pam at bedside. Mother willing to participate in assessment and is able to answer all questions appropriately. Care providers, pharmacy, and demographics verified. Mother wishes for patient to discharge home, denies need for home health at this time. Mother states she has no further needs or concerns at this time. CM to follow for discharge planning needs that may arise. 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 Insurance: [employer] Prescription Benefit: yes Living Will/HPOA: Mother is legal guardian LNOK: mother, father Living Arrangements: Patient lives with parents in a 3 story home. Patient is independent and able to ambulate stairs. Transportation: mother DME/HHC: Patient has glucometer with supplies and insulin with supplies. No previous HHC or SNF Disposition Plan: Patient to discharge home with family support and follow-up plans in place. Jeniffer HERNANDEZ, RN, CM
[2022-03-30] MEDS: Insulin Glargine-YFGN 100 UNIT/ML Pen 10 UNIT SC (12:29)
--- NOTE | 2022-03-30 12:50 | CON.PCM.ID_ITS ---
Assessment & Plan Assessment/Plan (1) Encephalopathy: PLAN: Unclear source. Resp viral pcr panel neg. Bcx neg, cdiff neg. Will check lyme. Monitoring off abx. Will follow, thank you (2) Type 1 diabetes: HPI Consult Data Date of Consult: 03/30/22 HPI Narrative Reason for Consultation: fever HPI Narrative: KAYLEE CAST, is a 41 F with T2DM, insulin pump in place, and trisomy 21, presented 03/28 with about a week of fever, encephalopathy, some upper abd pain, nausea, cough, not feeling well. No sick contacts. Was treated for staph abd wall cellulitis in Jan, has resolved. No tick bites, but they live in [place] and find ticks on their dogs. Small scabbed circular lesion over R shoulder seen by her mom. Came to ED, admitted. Doing a little better in terms of mental status, no further fever. Full ROS unable to be performed due to mental status PFSH Medical History Abdominal wall abscess Bowel obstruction Diabetes HLD (hyperlipidemia) Hypoglycemia unawareness in type 1 diabetes mellitus Hypothyroidism Insulin pump titration Obesity Obesity Orthostatic hypotension Presence of insulin pump Presence of insulin pump Sinus bradycardia Trisomy 21 Type 1 diabetes Ventricular septal defect (VSD), membranous Home Medications ascorbate calcium (vitamin C) 500 mg tablet 500 mg PO DAILY supplement 12/24/20 [History Last Taken 01/11/22] cholecalciferol (vitamin D3) 125 mcg (5,000 unit) capsule 125 mcg PO DAILY supplement 12/24/20 [History Last Taken 01/11/22] cinnamon bark 500 mg capsule (Cinnamon) 500 mg PO DAILY supplement 12/24/20 [History Last Taken 01/11/22] insulin pump cartridge #5 ea 12/24/20 [History Last Taken Unknown] multivitamin (Daily Multi-Vitamin tablet) 1 tab PO DAILY supplement 12/24/20 [History Last Taken 01/11/22] multivitamin with minerals (Hair,Skin and Nails tablet) 1 tab PO DAILY supplement 12/24/20 [History Last Taken 01/11/22] blood-glucose meter,continuous (Dexcom G6 Facilities Specialist misc) #1 ea 01/02/21 [Rx Last Taken Unknown] flash glucose sensor (FreeStyle [place] 2 Sensor kit) #2 ea 08/19/21 [Rx Last Taken Unknown] OneTouch Ultra Test (blood sugar diagnostic) #250 ea 08/20/21 [Rx Last Taken Unknown] OneTouch Ultra2 Meter (blood-glucose meter) #1 ea 08/20/21 [Rx Last Taken Unknown] glucagon 1 mg solution for injection 1 mg subcut ONCE low blood sugar 01/12/22 [History Last Taken Unknown] cephalexin 500 mg capsule 500 mg PO TID 10 days #30 caps 01/15/22 [Rx Last Taken Unknown] Humalog U-100 Insulin 100 unit/mL subcutaneous solution (insulin lispro) 100 unit subcut DAILY #30 mL 03/10/22 [Rx Last Taken Unknown] Omnipod 5 G6 Intro Kit (Gen 5) subcutaneous cartridge with controller (insulin pump cart,auto,BT-cntr) #1 ea 03/11/22 [Rx Last Taken Unknown] insulin pump cart,automated,BT (Omnipod 5 G6 Pods (Gen 5) subcutaneous cartridge) #30 ea 03/11/22 [Rx Last Taken Unknown] escitalopram oxalate 5 mg tablet (Lexapro) 5 mg 03/28/22 [History Last Taken Unknown] levothyroxine 50 mcg tablet mcg 03/28/22 [History Last Taken Unknown] Allergy/AdvReac Type Severity Reaction Status Date / Time vancomycin AdvReac Itching Verified 03/10/22 09:51 Family History Father Hypertension Surgical History History of hysterectomy History of incision and drainage History of intestinal surgery Social History Smoking Status: Never smoker alcohol intake: never substance use type: does not use Physical Exam Const alert and no apparent distress General Appearance: cooperative and lethargic HEENT head/scalp atraumatic Eyes PERRL and EOMs intact bilaterally Neck supple and No nodes Resp normal air movement and clear to auscultation bilaterally Cardio regular rate and regular rhythm GI soft to palpation and non-distended GI Narrative: mild epigastric soreness Extremity General Extremity: Negative for edema Skin Skin Narrative: Small red scabbed lesion over R trapezius Neuro CN's II-XII intact bilaterally Medical Records Data Medical Nutrition Assessment Dietitian: Malnutrition Criteria Met Start: 03/30/22 11:06 Freq: Status: Active Protocol: Document 03/30/22 11:06 JORDY (Rec: 03/30/22 11:06 [facility] [id number]) Nutrition Malnutrition Evidence of Malnutrition Exists Yes Malnutrition (severe): Acute Illness/Injury Evidenced By Suboptimal Energy Intake ( Severe),Weight Loss (Severe) Clinical Problem Acute Disease or Injury Related Malnutrition Etiology related to acute viral syndrome Signs/Symptoms as evidenced by 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 Status Active Problem Recommendation Dietitian Recommendations/Changes Will liberalize diet to Consistent CHO d/t s/s of malnutrition Will order 4 oz glucerna shake 4x/day w/ medpass for increased nutrition if consumed. Lab / Micro Data Attestation: I reviewed the patient's lab results. Result Diagrams: 03/30/22 07:29 03/30/22 07:29 Labs: Laboratory Results - last 24 hr 03/29/22 12:51: POC Glucose 81 03/29/22 14:07: POC Glucose 69 L 03/29/22 16:13: POC Glucose 102 03/29/22 21:02: POC Glucose 264 H 03/30/22 01:54: POC Glucose 186 H 03/30/22 05:51: POC Glucose 211 H 03/30/22 07:29: Magnesium 1.7 03/30/22 07:29: WBC 9.1, RBC 3.67 L, Hgb 12.2, Hct 38.0, MCV 103.5 H, MCH 33.2 H , MCHC 32.1 D, RDW Std Deviation 50.4 H, RDW Coeff of Lamine 13.2, Plt Count 194, MPV 10.8, Immature Gran % (Auto) 0.700, Neut % (Auto) 79.5 H, Lymph % (Auto) 12.0 L, [place] % (Auto) 7.7, Eos % (Auto) 0.0, Baso % (Auto) 0.1, Absolute Neuts (auto) 7.2, Absolute Lymphs (auto) 1.09, Nucleated RBC % 0 03/30/22 07:29: Sodium 137, Potassium 4.6, Chloride 107, Carbon Dioxide 20.0 L, Anion Gap 10, BUN 15, Creatinine 0.96, Estim Creat Clear Calc 56.51, Est GFR (MDRD) Af Amer 83, Est GFR (MDRD) Non-Af 69, BUN/Creatinine Ratio 15.7, Glucose 184 H, Calcium 7.1 L, Total Bilirubin 0.40, AST 673 H, ALT 150 H, Alkaline Phosphatase 109, Total Protein 5.4 L, Albumin 2.3 L, Globulin 3.1, Albumin/Globulin Ratio 0.7 L 03/30/22 10:03: POC Glucose 192 H Micro: Microbiology 03/29/22 20:15 Stool Enteric Bacteriology - Final 03/29/22 20:15 Stool C. difficile DNA Amplification - Final 03/28/22 18:44 Urine Catheter - [place] Urine Culture - Preliminary Culture exhibits no growth. Radiology Impression Echocardiogram 03/30/22 03:55 Interpretation Summary Normal LV size. The estimated ejection fraction is 15 %. Mild (1+) eccentric mitral valve insufficiency. Pulmonary artery systolic pressure is 48 mmHg. Mild to moderate (1-2+) tricuspid valve insufficiency. Compared to previous study, the left ventricular systolic function has worsened.. Ordering Physician: Shannan Hopson Referring Physician: Kaylee Estrada Performed By: Frannie Berkowitz RCS
[2022-03-30] MEDS: Glucerna Shake 120 ML LIQUID PO ×2 (14:19→17:02)
[2022-03-30 14:40] LABS: Bedside Glucose 272 mg/dL (74-106)
[2022-03-30 16:20] LABS: Bedside Glucose 425 mg/dL (74-106)
[2022-03-30 16:20] LABS: Bedside Glucose 400 mg/dL (74-106)
[2022-03-30 17:20] LABS: Bedside Glucose 172 mg/dL (74-106)
[2022-03-30 22:40] LABS: Bedside Glucose 270 mg/dL (74-106)
[2022-03-31] VITALS (11 sets, daily range): BP systolic 87–109; BP diastolic 51–86; PULSE 50–108; RESP 16–20; TEMP 36.6–36.7; O2SAT 92–97
[2022-03-31] MEDS: 0.9% Normal Saline 1,000 ML 150 ML IV ×2 (00:32→06:41)
--- NOTE | 2022-03-31 01:13 | EKG12_ITS ---
Test Reason : RHYTHM CHANGE Blood Pressure : / mmHG Vent. Rate : 102 BPM Atrial Rate : 102 BPM P-R Int : 174 ms QRS Dur : 090 ms QT Int : 352 ms P-R-T Axes : 040 -62 045 degrees QTc Int : 458 ms Sinus tachycardia with frequent Premature ventricular complexes Left axis deviation Low voltage QRS Abnormal ECG Confirmed by MAGY ABRAMS, KELL ([id number]), department editor BERNIE REES ([id number]) on 04/01/2022 7:58:22 AM Referred By: YOGI Confirmed By:KELL BHATTI MD
[2022-03-31] MEDS: Insulin Lispro 100 UNIT/ML INSULN.PEN SC ×6 (03:06→22:58)
[2022-03-31 03:26] LABS: Bedside Glucose 211 mg/dL (74-106)
[2022-03-31 05:07] LABS: Lyme Ab Screen Interpretation REF LAB
[2022-03-31] MEDS: Levothyroxine 50 MCG Tablet PO (05:52)
[2022-03-31 06:56] LABS: Bedside Glucose 191 mg/dL (74-106)
--- NOTE | 2022-03-31 08:22 | PN.HOSP_ITS ---
Subjective Subjective Patient seen complains of not feeling well. Complains of abdominal discomfort as well as headache. 2D echo performed on 03/30/2022 demonstrated EF of 15%. Previous echo performed on 08/08/2020 demonstrated ejection fraction of 65% Objective Data Objective Data Vital Signs: Vital Signs Temp Pulse Resp BP Pulse Ox O2 Del Method 97.8 F 50 L 18 87/51 L 96 Room Air 03/31/22 08:06 03/31/22 08:06 03/31/22 08:06 03/31/22 08:06 03/31/22 08:06 03/31/22 08:06 Oxygen Delivery Method Room Air Weight: 69.2 kg Body Mass Index (BMI) 29.7 Intake & Output: Intake and Output for Last 24 Hours 03/29/22 03/30/22 03/31/22 23:59 23:59 23:59 Intake Total 5032.5 / 5032.5 4412.5 / 4562.5 2000.0 / 2000.0 Output Total 3100 / 3200 650 / 900 400 / 400 Balance 1932.5 / 1832.5 3762.5 / 3662.5 1600.0 / 1600.0 Medical Nutrition Assessment Dietitian: Malnutrition Criteria Met Start: 03/30/22 11:06 Freq: Status: Active Protocol: Document 03/30/22 11:06 JORDY (Rec: 03/30/22 11:06 JORDY [id number]) Nutrition Malnutrition Evidence of Malnutrition Exists Yes Malnutrition (severe): Acute Illness/Injury Evidenced By Suboptimal Energy Intake ( Severe),Weight Loss (Severe) Clinical Problem Acute Disease or Injury Related Malnutrition Etiology related to acute viral syndrome Signs/Symptoms as evidenced by 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 Status Active Problem Recommendation Dietitian Recommendations/Changes Will liberalize diet to Consistent CHO d/t s/s of malnutrition Will order 4 oz glucerna shake 4x/day w/ medpass for increased nutrition if consumed. Lab / Micro Data Result Diagrams: 03/30/22 07:29 03/30/22 07:29 Labs: Laboratory Results - last 24 hr 03/29/22 08:48: POC Glucose 425 H 03/29/22 10:04: POC Glucose 400 H 03/30/22 10:03: POC Glucose 192 H 03/30/22 14:12: POC Glucose 272 H 03/30/22 16:57: POC Glucose 172 H 03/30/22 22:19: POC Glucose 270 H 03/31/22 03:04: POC Glucose 211 H 03/31/22 05:52: POC Glucose 191 H Micro: Microbiology 03/28/22 18:44 Urine Catheter - [place] Urine Culture - Final Culture exhibits no growth. 03/29/22 20:15 Stool Enteric Bacteriology - Final 03/29/22 20:15 Stool C. difficile DNA Amplification - Final 03/28/22 23:00 Mucosa - Nasopharyngeal Respiratory Panel (PCR) - Final 03/28/22 18:44 Urine Catheter - Catheter Legionella Antigen - Final 03/28/22 18:44 Urine Catheter - Catheter Streptococcus pneumoniae Antigen (M - Final 03/28/22 18:49 Nasal Secretion SARS-CoV-2 & FLU Antigen (Rapid) - Final Radiography Diagnostic Testing: Radiology Impression Echocardiogram 03/30/22 03:55 Interpretation Summary Normal LV size. The estimated ejection fraction is 15 %. Mild (1+) eccentric mitral valve insufficiency. Pulmonary artery systolic pressure is 48 mmHg. Mild to moderate (1-2+) tricuspid valve insufficiency. Compared to previous study, the left ventricular systolic function has worsened.. Ordering Physician: Shannan Hopson Referring Physician: Kaylee Estrada Performed By: Frannie Berkowitz RCS Physical Exam Narrative GENERAL: Patient in no apparent distress HEENT: Atraumatic; normocephalic EYES; Anicteric, Normal Conjunctiva NECK; supple, normal thyroid, RESPIRATORY: Diminished to auscultation CARDIOVASCULAR: Regular S1 S2, GI: soft, normoactive bowel sounds, : No Renal angle tenderness; EXTREMITIES: No edema, no clubbing, MUSCULOSKELETAL: no muscle wasting NEURO: Awake; no lateralizing signs. SKIN: No Rash PSYCH; Flat affect Assessment & Plan Assessment/Plan (1) Type 1 diabetes: PLAN: Plan Patient is a 41-year-old lady with history of Down syndrome presented with altered mental status and fever 1. Acute encephalopathy ? Secondary to dehydration from acute viral syndrome. Patient has been treated symptomatically level of sensorium appears to be improving ? Patient initial respiratory viral panel was negative added COVID 19. Patient has also been seen by Dr. Neff with infectious disease is noted recommendations reviewed 2. Cardiomyopathy ?? Viral myocarditis ? 2D echo performed on 03/30/2022 demonstrated normal LV size. The estimated ejection fraction is 15 %. Mild (1+) eccentric mitral valve insufficiency. Pulmonary artery systolic pressure is 48 mmHg. Mild to moderate (1-2+) tricuspid valve insufficiency. Compared to previous study, the left ventricular systolic function has worsened. Previous echo performed on 08/08/2020 demonstrated EF of 65% ? Consult placed to cardiology Case discussed with Dr. Bustos 3. Diabetes mellitus type 2 ? Patient is on an insulin pump, this was held on admission please on Accu-Cheks before meals and at bedtime. With patient experiencing hypoglycemic episode did add long-acting insulin 4. Down syndrome ? Complicating care 5. Congenital heart disease (membranous VSD) ? As a result of patient Down syndrome 6. Hypothyroidism - Patient is on levothyroxine home dose continued 7. DVT prophylaxis ? SC Lovenox Patient's case discussed with mom Charges/Coding Visit Charges Inpatient E&M: 25276 Subs Hosp L2
[2022-03-31 09:00] LABS: Thyroid Stim Hormone (TSH) 6.83 uIU/mL (0.358-3.74)
[2022-03-31] MEDS: Ondansetron 4 MG/2 ML Vial IV (09:35)
[2022-03-31] MEDS: 0.9% Saline Lock 10 ML Syringe IV (09:35)
--- NOTE | 2022-03-31 10:05 | NURSING ---
0940 pt to PCU per bed. pt mother with pt
[2022-03-31] MEDS: Insulin Glargine-YFGN 100 UNIT/ML Pen 10 UNIT SC (11:29)
[2022-03-31] MEDS: Escitalopram Oxalate 10 MG Tablet 5 MG PO (11:29)
[2022-03-31] MEDS: Enoxaparin 40 MG/0.4 ML Syringe SC (11:30)
[2022-03-31] MEDS: guaiFENesin 10 ML UDC (200MG/10ML) 20 ML PO (11:36)
[2022-03-31 11:56] LABS: Bedside Glucose 216 mg/dL (74-106)
--- NOTE | 2022-03-31 12:06 | CON.PCM.CA_ITS ---
Assessment & Plan Assessment/Plan (1) Cardiomyopathy: PLAN: The patient appears to have objective findings compatible with an underlying cardiomyopathy. At the moment the etiology is uncertain although there does appear to be a concern that the patient may have an underlying viral illness which could lead to a viral related cardiomyopathy. She continues evaluation care per internal medicine and infectious disease. There is been no history of underlying CAD or CAD evaluation. This diagnosis may be was less likely to be the sole etiology for her change in LV wall motion and systolic function and declining LVEF. If she does need to be considered for such then her noncardiovascular conditions have to be taken into consideration as well as to how to proceed for such a diagnosis with respect to noninvasive and/or invasive studies. From a cardiovascular standpoint it would be reasonable to consider additional medical therapy based upon her findings which will include agents such as beta- blockers, afterload reducing agents, diuretic such as spironolactone/Aldactone, and potentially SGLT2 inhibitors. However, initiating medical therapy such as beta-blockers and afterload reducing agents may be somewhat challenging based upon the patient's ongoing low blood pressures. Thus the initiation of medications would be considered to be started at low-dose and advanced cautiously as tolerated. Also, based upon the patient's noncardiac condition and her subsequent cardiovascular findings depending upon her ongoing evaluation care she may need to be evaluated at a tertiary care center by an advanced heart failure teamubaldo to assist in her ongoing evaluation and care. (2) Ventricular septal defect (VSD), membranous: PLAN: The patient was reported as having previous findings compatible with a membranous VSD. According to her mother she underwent evaluation of [facility]. Status post that evaluation she was not recommended for additional diagnostic studies/intervention. Those records are unavailable at this time for review. Her current echocardiogram does not comment on any findings compatible with an underlying VSD. (3) Viral illness: PLAN: Again the patient has been thought to have a potential underlying viral illness. She continues evaluation care per internal medicine and infectious disease. (4) Encephalopathy: PLAN: The patient presented with mental status changes. The etiology of her mental status condition is unclear at this time. However the concern appears to be that it may be related to a viral mediated illness. (5) HLD (hyperlipidemia): QUALIFIERS: Hyperlipidemia type: unspecified Qualified Code(s): E78.5 - Hyperlipidemia, unspecified PLAN: She carries a history of hyperlipidemia. She will continue evaluation care as deemed appropriate. 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 She will also continue evaluation care as deemed appropriate. 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 This does have to be taken into consideration with respect to her ongoing evaluation and care both cardiac and noncardiac. Addt'l Comments The patient's case was discussed and reviewed with the patient's mother as well as Dr. Amaya. This note was generated using a voice recognition system and there may be incorrect words, spelling or punctuation that were not noted when reviewing the office note prior to saving. HPI Consult Data Date of Consult: 03/31/22 HPI Narrative HPI Narrative: KAYLEE CAST, is a 41 year old white female who presents for cardiovascular consultation based upon concerns of an abnormal transthoracic echocardiogram suggesting an underlying cardiomyopathy with severely diminished LV systolic function/LVEF who has previously been evaluated by Dr. Ledesma at [facility] as well as in the outpatient setting for concerns of Trisomy 21/Down syndrome with findings of an underlying ventricular septal defect super imposed upon a history of underlying hyperlipidemia, diabetes mellitus, and hypothyroidism. It appears the patient presented on 03-28-2022 for evaluation of concerns of weakness and altered mental status. According to the patient's mother, who was present at this time, the patient had been feeling progressively weak and appeared to have altered mental status as well as concerns of fevers. The patient also apparently reported concerns of feeling headaches, abdominal discomfort with nausea and dizziness. The patient's mother states that she had been exposed to COVID-[address] of work but she herself tested negative. The patient was evaluated at [facility] during this admission for COVID-19 which was negative. A repeat test is pending at this time. The patient's mother does not appear to be aware of any acute complaints of chest discomfort or acute concerns of difficulty breathing especially with orthopnea or PND. She states there has been no ongoing peripheral pitting edema. She is not aware of any episodes of complaints of palpitations nor has there been any witnessed near-syncope or syncope. She states the patient was also placed on an antidepressant recently-Lexapro. She questions whether this is clouding the patient's mental status. Since the patient's hospitalization she has been undergoing evaluation and care for concerns of underlying infectious disease related issues. This is also include an evaluation by infectious diseases. Thus far there is a concern that she may have experienced some form of a viral syndrome. Her hospitalization did lead to a transthoracic echocardiogram. According to the report her left ventricle was thought to be normal in size with severe global left ventricular systolic dysfunction with an estimated LVEF of 15%. Of note: The patient's mother states that following her previous outpatient visit with Dr. Ledesma her daughter was evaluated at [facility] for concerns of underlying ventricular septal defect. She states status post her evaluation there they recommended no further diagnostic studies/intervention. [facility] Medical History (Updated 03/31/22 @ 12:[address] Warren Bustos MD) Abdominal wall abscess Bowel obstruction Diabetes HLD (hyperlipidemia) Hypoglycemia unawareness in type 1 diabetes mellitus Hypothyroidism Insulin pump titration Obesity Obesity Orthostatic hypotension Presence of insulin pump Presence of insulin pump Sinus bradycardia Trisomy 21 Type 1 diabetes Ventricular septal defect (VSD), membranous Home Medications ascorbate calcium (vitamin C) 500 mg tablet 500 mg PO DAILY supplement 12/24/20 [History Last Taken 01/11/22] cholecalciferol (vitamin D3) 125 mcg (5,000 unit) capsule 125 mcg PO DAILY supplement 12/24/20 [History Last Taken 01/11/22] cinnamon bark 500 mg capsule (Cinnamon) 500 mg PO DAILY supplement 12/24/20 [History Last Taken 01/11/22] insulin pump cartridge #5 ea 12/24/20 [History Last Taken Unknown] multivitamin (Daily Multi-Vitamin tablet) 1 tab PO DAILY supplement 12/24/20 [History Last Taken 01/11/22] multivitamin with minerals (Hair,Skin and Nails tablet) 1 tab PO DAILY supplement 12/24/20 [History Last Taken 01/11/22] blood-glucose meter,continuous (Dexcom G6 Flume Ride Operator [facility] [place]) #1 ea 01/02/21 [Rx Last Taken Unknown] flash glucose sensor (FreeStyle [place] 2 Sensor kit) #2 ea 08/19/21 [Rx Last Taken Unknown] OneTouch Ultra Test (blood sugar diagnostic) #250 ea 08/20/21 [Rx Last Taken Unknown] OneTouch Ultra2 Meter (blood-glucose meter) #1 ea 08/20/21 [Rx Last Taken Unknown] glucagon 1 mg solution for injection 1 mg subcut ONCE low blood sugar 01/12/22 [History Last Taken Unknown] cephalexin 500 mg capsule 500 mg PO TID 10 days #30 caps 01/15/22 [Rx Last Taken Unknown] Humalog U-100 Insulin 100 unit/mL subcutaneous solution (insulin lispro) 100 unit subcut DAILY #30 mL 03/10/22 [Rx Last Taken Unknown] Omnipod 5 G6 Intro Kit (Gen 5) subcutaneous cartridge with controller (insulin pump cart,auto,BT-cntr) #1 ea 03/11/22 [Rx Last Taken Unknown] insulin pump cart,automated,BT (Omnipod 5 G6 Pods (Gen 5) subcutaneous cartridge) #30 ea 03/11/22 [Rx Last Taken Unknown] escitalopram oxalate 5 mg tablet (Lexapro) 5 mg 03/28/22 [History Last Taken Unknown] levothyroxine 50 mcg tablet mcg 03/28/22 [History Last Taken Unknown] Allergy/AdvReac Type Severity Reaction Status Date / Time vancomycin AdvReac Itching Verified 03/10/22 09:51 Family History Father Hypertension Surgical History History of hysterectomy History of incision and drainage History of intestinal surgery Social History Smoking Status: Never smoker alcohol intake: never substance use type: does not use ROS Review of Systems ROS Unobtainable: due to mental status Constitutional Constitutional: Reports fever(s) and weakness Eyes Eyes: Reports as per HPI ENT HEENT: Reports as per HPI Cardiovascular Cardiovascular: Reports abdominal pain and weakness in extremities Respiratory/Chest Respiratory/Chest: Reports as per HPI Gastrointestinal Gastrointestinal: Reports abdominal pain Genitourinary Genitourinary: Reports as per HPI Musculoskeletal Musculoskeletal: Reports as per HPI Integumentary Integumentary: Reports as per HPI Neurologic Neurologic: Reports as per HPI Physical Exam Const Orientation / Consciousness: awake HEENT normocephalic, head/scalp atraumatic and hearing grossly normal bilaterally Eyes PERRL, EOMs intact bilaterally, conjunctivae normal and no scleral icterus Neck supple and no JVD Resp normal respiratory effort and clear to auscultation bilaterally Cardio regular rate, regular rhythm, S1 normal heart sound and S2 normal heart sound Palpation: normal PMI Heart Sounds: murmur systolic I/ soft left sternal border GI normal to inspection, nondistended, normoactive bowel sounds Extremity no pedal edema Skin no rashes or lesions noted Risk Stratification Risk Stratification Applicable: No Procedure Criteria Type of Procedure Procedure Type: Elective Elective Risks - COVID COVID Risk Discussion: The surgeon/proceduralist and patient have discussed in detail the risk of exposure to and/or potential harm posed by the COVID-19 virus with having a surgery/procedure at this time versus the risk of delaying the surg trupti/procedure. It is not possible to know either the risk of delaying the surgery or procedure or chance of getting an infection with perfect accuracy, but a joint decision was made between the patient and the surgeon/proceduralist to proceed at this time with the scheduled surgery/procedure as indicated on the consent form. Objective Data Vital Signs: Vital Signs Temp Pulse Resp BP Pulse Ox O2 Del Method 97.9 F 78 17 95/74 93 Room Air 03/31/22 10:51 03/31/22 10:51 03/31/22 10:51 03/31/22 10:51 03/31/22 09:55 03/31/22 10:51 Oxygen Delivery Method Room Air Weight: 152 lb 8.958 oz Body Mass Index (BMI) 29.7 Intake & Output: Intake and Output for Last 24 Hours 03/29/22 03/30/22 03/31/22 23:59 23:59 23:59 Intake Total 5032.5 / 5032.5 4412.5 / 4562.5 2432.5 / 2432.5 Output Total 3100 / 3200 650 / 900 400 / 400 Balance 1932.5 / 1832.5 3762.5 / 3662.5 2032.5 / 2032.5 Lab / Micro Data Result Diagrams: 03/30/22 07:29 03/30/22 07:29 Labs: Laboratory Results - last 24 hr 03/29/22 08:48: POC Glucose 425 H 03/29/22 10:04: POC Glucose 400 H 03/30/22 14:12: POC Glucose 272 H 03/30/22 16:57: POC Glucose 172 H 03/30/22 22:19: POC Glucose 270 H 03/31/22 03:04: POC Glucose 211 H 03/31/22 04:31: Magnesium 2.0, TSH 6.83 H 03/31/22 04:31: Cortisol 31.70 H 03/31/22 05:52: POC Glucose 191 H 03/31/22 11:27: POC Glucose 216 H Micro: Microbiology 03/28/22 19:25 Blood Culture (Wb) - Right Hand Blood Culture - Preliminary No growth in 48 hours. 03/28/22 18:18 Blood Culture (Wb) - Left Hand Blood Culture - Preliminary No growth in 48 hours. 03/28/22 18:44 Urine Catheter - [place] Urine Culture - Final Culture exhibits no growth. Cardiology Labs/Tests 03/31/22 04:31: Magnesium 2.0 Rhythm: Sinus rhythm EKG: Sinus rhythm; PVCs; left axis deviation; low voltage QRS ECHO: Interpretation Summary Normal LV size. The estimated ejection fraction is 15 %. Mild (1+) eccentric mitral valve insufficiency. Pulmonary artery systolic pressure is 48 mmHg. Mild to moderate (1-2+) tricuspid valve insufficiency. Compared to previous study, the left ventricular systolic function has worsened. Radiography Diagnostic Testing: Radiology Impression Echocardiogram 03/30/22 03:55 Interpretation Summary Normal LV size. The estimated ejection fraction is 15 %. Mild (1+) eccentric mitral valve insufficiency. Pulmonary artery systolic pressure is 48 mmHg. Mild to moderate (1-2+) tricuspid valve insufficiency. Compared to previous study, the left ventricular systolic function has worsened.. Ordering Physician: Shannan Hopson Referring Physician: Kaylee Estrada Performed By: Frannie Berkowitz RCS
--- NOTE | 2022-03-31 13:59 | PCM.DC.SUM ---
Providers Date of Admission: 03/29/22 Primary Care Physician: Dr. Kaylee Estrada DO Consultations 03/30/22 01:16 Consult: Infectious Disease Routine Consulting Provider: William Neff Reason for Consult: SIRS, unclear etiology EMERGENT Consult: No MD Notified: Yes Date Notified: 03/30/22 Time Notified: 08:21 Method of Notification: Answering Service 03/31/22 10:50 Consult: Cardiology Routine Consulting Provider: Warren Bustos Reason for Consult: cardiomyopathy EMERGENT Consult: No Notified: Yes Date Notified: 03/31/22 Time Notified: 10:50 Method of Notification: Verbal Reason For Visit: ACUTE VIRAL SYNDROME Diagnosis Discharge Diagnosis (1) Cardiomyopathy: Status: Acute Code(s): I42.9 - Cardiomyopathy, unspecified (2) Ventricular septal defect (VSD), membranous: Status: Chronic Code(s): Q21.0 - Ventricular septal defect (3) Viral illness: Status: Acute Code(s): B34.9 - Viral infection, unspecified (4) Encephalopathy: Status: Acute Code(s): G93.40 - Encephalopathy, unspecified (5) HLD (hyperlipidemia): Status: Chronic Code(s): E78.5 - Hyperlipidemia, unspecified Qualifiers: Hyperlipidemia type: unspecified Qualified Code(s): E78.5 - Hyperlipidemia, unspecified (6) Hypothyroidism: Status: Chronic Code(s): E03.9 - Hypothyroidism, unspecified Qualifiers: 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 Acute encephalopathy ? Secondary to dehydration from acute viral syndrome. Patient has been treated symptomatically level of sensorium appears to be improving ? Patient initial respiratory viral panel was negative added COVID 19. Patient has also been seen by Dr. Neff with infectious disease is noted recommendations reviewed 2. Cardiomyopathy ?? Viral myocarditis ? 2D echo performed on 03/30/2022 demonstrated normal LV size. The estimated ejection fraction is 15 %. Mild (1+) eccentric mitral valve insufficiency. Pulmonary artery systolic pressure is 48 mmHg. Mild to moderate (1-2+) tricuspid valve insufficiency. Compared to previous study, the left ventricular systolic function has worsened. Previous echo performed on 08/08/2020 demonstrated EF of 65% ? Consult placed to cardiology Case discussed with Dr. Bustos. Case was discussed with Dr. Bustos after he evaluated patient he recommended for patient to be transferred to tertiary care center call was placed to [facility]. Awaiting bed availability prior to transfer 3. Diabetes mellitus type 2 ? Patient is on an insulin pump, this was held on admission please on Accu-Cheks before meals and at bedtime. With patient experiencing hypoglycemic episode did add long-acting insulin 4. Down syndrome ? Complicating care 5. Congenital heart disease (membranous VSD) ? As a result of patient Down syndrome 6. Hypothyroidism - Patient is on levothyroxine home dose continued 7. DVT prophylaxis ? SC Lovenox Patient's case discussed with mom Medications at Discharge Home Medications ascorbate calcium (vitamin C) 500 mg tablet 500 mg PO DAILY supplement 12/24/20 cholecalciferol (vitamin D3) 125 mcg (5,000 unit) capsule 125 mcg PO DAILY supplement 12/24/20 cinnamon bark 500 mg capsule (Cinnamon) 500 mg PO DAILY supplement 12/24/20 insulin pump cartridge #5 ea 12/24/20 multivitamin (Daily Multi-Vitamin tablet) 1 tab PO DAILY supplement 12/24/20 multivitamin with minerals (Hair,Skin and Nails tablet) 1 tab PO DAILY supplement 12/24/20 blood-glucose meter,continuous (Dexcom G6 Dairy Processing Equipment Operator [facility]) #1 ea 01/02/21 flash glucose sensor (FreeStyle [place] 2 Sensor kit) #2 ea 08/19/21 OneTouch Ultra Test (blood sugar diagnostic) #250 ea 08/20/21 OneTouch Ultra2 Meter (blood-glucose meter) #1 ea 08/20/21 glucagon 1 mg solution for injection 1 mg subcut ONCE low blood sugar 01/12/22 Humalog U-100 Insulin 100 unit/mL subcutaneous solution (insulin lispro) 100 unit subcut DAILY #30 mL 03/10/22 Omnipod 5 G6 Intro Kit (Gen 5) subcutaneous cartridge with controller (insulin pump cart,auto,BT-cntr) #1 ea 03/11/22 insulin pump cart,automated,BT (Omnipod 5 G6 Pods (Gen 5) subcutaneous cartridge) #30 ea 03/11/22 escitalopram oxalate 5 mg tablet (Lexapro) 5 mg 03/28/22 levothyroxine 50 mcg tablet mcg 03/28/22 Hospital Course Summary of Care Provided Minutes Spent on Discharge: 35 Medical Records Data Medical Nutrition Assessment Dietitian: Malnutrition Criteria Met Start: 03/30/22 11:06 Freq: Status: Active Protocol: Document 03/30/22 11:06 JORDY (Rec: 03/30/22 11:06 [id number]) Nutrition Malnutrition Evidence of Malnutrition Exists Yes Malnutrition (severe): Acute Illness/Injury Evidenced By Suboptimal Energy Intake ( Severe),Weight Loss (Severe) Clinical Problem Acute Disease or Injury Related Malnutrition Etiology related to acute viral syndrome Signs/Symptoms as evidenced by po intake <50% x 4 days delivery agent and 3.5% wt loss x 1 week delivery agent. Status Active Problem Recommendation Dietitian Recommendations/Changes Will liberalize diet to Consistent CHO d/t s/s of malnutrition Will order 4 oz glucerna shake 4x/day w/ medpass for increased nutrition if consumed. Weight / BMI Weight Weight: 69.2 kg Body Mass Index (BMI) 29.7 ABG / Lab / Microbiology Data Result Diagrams: 03/30/22 07:29 03/30/22 07:29 Laboratory: Laboratory Results - last 24 hr 03/29/22 08:48: POC Glucose 425 H 03/29/22 10:04: POC Glucose 400 H 03/30/22 14:12: POC Glucose 272 H 03/30/22 16:57: POC Glucose 172 H 03/30/22 22:19: POC Glucose 270 H 03/31/22 03:04: POC Glucose 211 H 03/31/22 04:31: Magnesium 2.0, TSH 6.83 H 03/31/22 04:31: Cortisol 31.70 H 03/31/22 05:52: POC Glucose 191 H 03/31/22 11:17: COVID-19 (HARRY) Not Detected 03/31/22 11:27: POC Glucose 216 H Microbiology: Microbiology 03/28/22 19:25 Blood Culture (Wb) - Right Hand Blood Culture - Preliminary No growth in 48 hours. 03/28/22 18:18 Blood Culture (Wb) - Left Hand Blood Culture - Preliminary No growth in 48 hours. 03/28/22 18:44 Urine Catheter - [place] Urine Culture - Final Culture exhibits no growth. 03/29/22 20:15 Stool Enteric Bacteriology - Final 03/29/22 20:15 Stool C. difficile DNA Amplification - Final 03/28/22 23:00 Mucosa - Nasopharyngeal Respiratory Panel (PCR) - Final 03/28/22 18:44 Urine Catheter - Catheter Legionella Antigen - Final 03/28/22 18:44 Urine Catheter - Catheter Streptococcus pneumoniae Antigen (M - Final 03/28/22 18:49 Nasal Secretion SARS-CoV-2 & FLU Antigen (Rapid) - Final Meaningful Use Info Meaningful Use Diagnoses (Choose all that apply): None applicable Discharge Plan Admission Admit Date/Time: 03/29/22 14:40 Attending Provider: Noah Amaya Primary Care Provider: Kaylee Estrada Consulting Providers: Shannan Hopson ; Rajinder Cabello ; William Neff ; Warren Bustos Discharge Orders/Prescriptions Prescriptions: Continued (DME) insulin pump cartridge Cartridge See Rx Instructions .ROUTE .MEDSUPPLY Qty: 5 Rx Instructions: As directed ascorbate calcium (vitamin C) 500 mg tablet 500 mg PO DAILY multivitamin [Daily Multi-Vitamin] Tablet 1 tab PO DAILY multivitamin with minerals [Hair,Skin and Nails] Tablet 1 tab PO DAILY cholecalciferol (vitamin D3) 125 mcg (5,000 unit) capsule 125 mcg PO DAILY cinnamon bark [Cinnamon] 500 mg capsule 500 mg PO DAILY (DME) blood-glucose meter [OneTouch Ultra2 Meter] Kit See Rx Instructions .ROUTE .MEDSUPPLY Qty: 1 0RF Rx Instructions: As directed (DME) OneTouch Ultra Test Strip See Rx Instructions .ROUTE .MEDSUPPLY Qty: 250 11RF Rx Instructions: test 8 times daily insulin lispro [Humalog U-100 Insulin] 100 unit/mL solution 100 unit subcut DAILY Qty: 30 5RF glucagon 1 mg recon soln 1 mg subcut ONCE escitalopram oxalate [Lexapro] 5 mg tablet 5 mg levothyroxine 50 mcg tablet (DME) FreeStyle [place] 2 Sensor Kit See Rx Instructions .ROUTE .MEDSUPPLY Qty: 2 6RF Rx Instructions: As directed (DME) Omnipod 5 G6 Pods (Gen 5) Cartridge See Rx Instructions .Route Qty: 30 1RF Rx Instructions: As directed (DME) Omnipod 5 G6 Intro Kit (Gen 5) Cartridge See Rx Instructions .Route Qty: 1 0RF Rx Instructions: As directed Discontinued cephalexin 500 mg capsule 500 mg PO TID 10 Days Qty: 30 0RF No Action (DME) Dexcom G6 Dairy Processing Equipment Operator Misc See Rx Instructions .ROUTE .MEDSUPPLY Qty: 1 0RF Rx Instructions: As directed Referrals / Follow Up: Kaylee Estrada DO [Primary Care Provider] - Within 2 Weeks Disposition Disposition (needs filled in before D/C Order can be placed): [facility]
[2022-03-31 15:56] LABS: Bedside Glucose 246 mg/dL (74-106)
[2022-03-31] MEDS: 0.9% Normal Saline 1,000 ML 75 ML IV (16:54)
[2022-03-31 17:45] LABS: Bedside Glucose 219 mg/dL (74-106)
--- NOTE | 2022-03-31 23:22 | NURSING ---
entered pt's room at 1055 and her o2 was 84-86. notified cps. applied warm blanket and sats did not improve. 2L NC applied and pt's spo2 maintained at 89-91%. o2 increased to 3L and pt able to maintain 92-94%. cps notifying .
[2022-03-31] MEDS: Albuterol 2.5 MG/3 ML VIAL.NEB. INHALATION (23:32)
[2022-03-31 23:45] LABS: Bedside Glucose 211 mg/dL (74-106)
[2022-04-01] VITALS (20 sets, daily range): BP systolic 77–131; BP diastolic 60–72; PULSE 66–108; RESP 16–20; TEMP 36.4–37; O2SAT 90–98
[2022-04-01] MEDS: Insulin Lispro 100 UNIT/ML INSULN.PEN SC ×5 (02:49→21:21)
[2022-04-01 03:11] LABS: Bedside Glucose 168 mg/dL (74-106)
[2022-04-01] MEDS: Levothyroxine 50 MCG Tablet PO (05:45)
[2022-04-01 06:15] LABS: Bedside Glucose 167 mg/dL (74-106)
[2022-04-01] MEDS: 0.9% Normal Saline 1,000 ML 75 ML IV (06:36)
--- NOTE | 2022-04-01 07:39 | PN.HOSP_ITS ---
Subjective Subjective Patient seen complains of feeling tired. Call was placed to [facility] for patient to be transferred to the [facility]. Awaiting bed availability Objective Data Objective Data Vital Signs: Vital Signs Temp Pulse Resp BP Pulse Ox O2 Del Method O2 Flow Rate 98.2 F 100 20 H 131/70 H 96 Nasal Cannula 3 04/01/22 02:44 04/01/22 02:59 04/01/22 02:44 04/01/22 02:44 04/01/22 02:44 04/01/22 02:44 04/01/22 02:44 Oxygen Flow Rate (L/min) 3 Oxygen Delivery Method Nasal Cannula Weight: 69.2 kg Body Mass Index (BMI) 29.7 Intake & Output: Intake and Output for Last 24 Hours 03/30/22 03/31/22 04/01/22 23:59 23:59 23:59 Intake Total 4412.5 / 4562.5 3942.5 / 3942.5 1600 / 1600 Output Total 650 / 900 700 / 700 200 / 200 Balance 3762.5 / 3662.5 3242.5 / 3242.5 1400 / 1400 Medical Nutrition Assessment Dietitian: Malnutrition Criteria Met Start: 03/30/22 11:06 Freq: Status: Active Protocol: Document 03/30/22 11:06 JORDY (Rec: 03/30/22 11:06 JORDY [id number]) Nutrition Malnutrition Evidence of Malnutrition Exists Yes Malnutrition (severe): Acute Illness/Injury Evidenced By Suboptimal Energy Intake ( Severe),Weight Loss (Severe) Clinical Problem Acute Disease or Injury Related Malnutrition Etiology related to acute viral syndrome Signs/Symptoms as evidenced by po intake <50% x 4 days 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 Status Active Problem Recommendation Dietitian Recommendations/Changes Will liberalize diet to Consistent CHO d/t s/s of malnutrition Will order 4 oz glucerna shake 4x/day w/ medpass for increased nutrition if consumed. Lab / Micro Data Result Diagrams: 03/30/22 07:29 03/30/22 07:29 Labs: Laboratory Results - last 24 hr 03/28/22 22:50: Ionized Calcium 4.7 03/31/22 04:31: Magnesium 2.0, TSH 6.83 H 03/31/22 04:31: Cortisol 31.70 H 03/31/22 11:17: COVID-19 (HARRY) Not Detected 03/31/22 11:27: POC Glucose 216 H 03/31/22 15:33: POC Glucose 246 H 03/31/22 17:23: POC Glucose 219 H 03/31/22 21:53: POC Glucose 211 H 04/01/22 02:41: POC Glucose 168 H 04/01/22 05:43: POC Glucose 167 H Micro: Microbiology 03/28/22 19:25 Blood Culture (Wb) - Right Hand Blood Culture - Preliminary No growth in 48 hours. 03/28/22 18:18 Blood Culture (Wb) - Left Hand Blood Culture - Preliminary No growth in 48 hours. 03/28/22 18:44 Urine Catheter - [place] Urine Culture - Final Culture exhibits no growth. 03/29/22 20:15 Stool Enteric Bacteriology - Final 03/29/22 20:15 Stool C. difficile DNA Amplification - Final 03/28/22 23:00 Mucosa - Nasopharyngeal Respiratory Panel (PCR) - Final 03/28/22 18:44 Urine Catheter - Catheter Legionella Antigen - Final 03/28/22 18:44 Urine Catheter - Catheter Streptococcus pneumoniae Antigen (M - Final 03/28/22 18:49 Nasal Secretion SARS-CoV-2 & FLU Antigen (Rapid) - Final Physical Exam Narrative GENERAL: Patient in no apparent distress HEENT: Atraumatic; normocephalic EYES; Anicteric, Normal Conjunctiva NECK; supple, normal thyroid, RESPIRATORY: Diminished to auscultation CARDIOVASCULAR: Regular S1 S2, GI: soft, normoactive bowel sounds, : No Renal angle tenderness; EXTREMITIES: Edema involving both hands and feet MUSCULOSKELETAL: no muscle wasting NEURO: Awake; no lateralizing signs. 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 Acute encephalopathy ? Secondary to dehydration from acute viral syndrome. Patient has been treated symptomatically level of sensorium appears to be improving ? Patient initial respiratory viral panel was negative added COVID 19. Patient has also been seen by Dr. Neff with infectious disease is noted recommendations reviewed 2. Cardiomyopathy ?? Viral myocarditis ? 2D echo performed on 03/30/2022 demonstrated normal LV size. The estimated ejection fraction is 15 %. Mild (1+) eccentric mitral valve insufficiency. Pulmonary artery systolic pressure is 48 mmHg. Mild to moderate (1-2+) tricuspid valve insufficiency. Compared to previous study, the left ventricular systolic function has worsened. Previous echo performed on 08/08/2020 demonstrated EF of 65% ? 03/31/2022 consult placed to cardiology Case discussed with Dr. Bustos. Case was discussed with Dr. Bustos after he evaluated patient he recommended for patient to be transferred to tertiary care center call was placed to [facility]. Awaiting bed availability prior to transfer ? 04/01/2022. Awaiting transfer to [facility]. Patient was started on low-dose diuretics in view of patient appearing to be fluid overloaded 3. Diabetes mellitus type 2 ? Patient is on an insulin pump, this was held on admission please on Accu-Cheks before meals and at bedtime. With patient experiencing hypoglycemic episode did add long-acting insulin 4. Down syndrome ? Complicating care 5. Congenital heart disease (membranous VSD) ? As a result of patient Down syndrome 6. Hypothyroidism - Patient is on levothyroxine home dose continued 7. DVT prophylaxis ? SC Lovenox 8.. severe malnutrition ? Related to acute viral syndrome as evidenced by po intake <50% x 4 days 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 Will liberalize diet to Consistent CHO d/t s/s of malnutrition Will order 4 oz glucerna shake 4x/day w/ medpass for increased nutrition if consumed. Patient's case discussed with mom Charges/Coding Visit Charges Inpatient E&M: 06949 Subs Hosp L2
[2022-04-01] MEDS: proCHLORPERazine 10 MG/2 ML Vial 5 MG IV (08:33)
--- NOTE | 2022-04-01 09:59 | NURSING ---
I spoke to Andres at [facility] transfer line she stated PT is on their list however they do not have a bed yet.
[2022-04-01] MEDS: Furosemide 40 MG/4 ML Vial IV (11:08)
[2022-04-01] MEDS: Glucerna Shake 120 ML LIQUID PO ×3 (11:08→21:21)
[2022-04-01] MEDS: 0.9% Saline Lock 10 ML Syringe IV (11:08)
[2022-04-01] MEDS: Insulin Glargine-YFGN 100 UNIT/ML Pen 10 UNIT SC (11:11)
[2022-04-01] MEDS: Enoxaparin 40 MG/0.4 ML Syringe SC (11:11)
[2022-04-01 11:45] LABS: Bedside Glucose 210 mg/dL (74-106)
--- NOTE | 2022-04-01 13:06 | PCM.PN.ID ---
Physical Exam Narrative Feeling ok. No fever, no dyspnea. Mild epigastric pain. Const alert and no apparent distress Resp normal air movement and clear to auscultation bilaterally Cardio regular rate and regular rhythm GI soft to palpation and non-distended GI Narrative: mild epigastric soreness ID ID: Route of nutrition/ use of supplements: [] Nutritional Intake: [] IV Site: [] [place] Catheter: [] Assessment & Plan Assessment/Plan (1) Encephalopathy: PLAN: Unclear source. Resp viral pcr panel neg. Bcx neg, cdiff neg. Pending lyme. Monitoring off abx. Now EF 15%, transfer planned. Will follow (2) Type 1 diabetes: (3) Cardiomyopathy:
[2022-04-01 14:45] LABS: Bedside Glucose 189 mg/dL (74-106)
[2022-04-01 17:03] LABS: Lyme Scn Total Ab w/Rflx Negative (Negative)
[2022-04-01 17:40] LABS: Bedside Glucose 134 mg/dL (74-106)
[2022-04-01 23:21] LABS: Bedside Glucose 200 mg/dL (74-106)
[2022-04-02] VITALS (13 sets, daily range): BP systolic 91–112; BP diastolic 56–77; PULSE 65–108; RESP 15–18; TEMP 36.6–36.8; O2SAT 93–98
[2022-04-02 02:16] LABS: Bedside Glucose 144 mg/dL (74-106)
--- NOTE | 2022-04-02 03:59 | NURSING ---
spoke with person from [facility]. Gave update on patient. They stated no bed yet but they would call when they had a bed.
[2022-04-02] MEDS: Insulin Lispro 100 UNIT/ML INSULN.PEN SC ×5 (05:55→21:43)
[2022-04-02] MEDS: Levothyroxine 50 MCG Tablet PO (05:55)
[2022-04-02 07:00] LABS: Bedside Glucose 150 mg/dL (74-106)
[2022-04-02] MEDS: Albuterol 2.5 MG/3 ML VIAL.NEB. INHALATION (07:15)
--- NOTE | 2022-04-02 07:43 | PCM.PN.HOSP ---
Subjective Subjective Patient seen much more interactive compared to previous day. Transferred to [facility] still pending. Patient was given Lasix the day prior with significant result Objective Data Objective Data Vital Signs: Vital Signs Temp Pulse Resp BP Pulse Ox O2 Del Method O2 Flow Rate 97.9 F 68 16 99/70 96 Nasal Cannula 2 04/02/22 06:01 04/02/22 06:01 04/02/22 06:01 04/02/22 06:01 04/02/22 06:01 04/02/22 06:01 04/02/22 06:01 Oxygen Flow Rate (L/min) 2 Oxygen Delivery Method Nasal Cannula Weight: 69.2 kg Body Mass Index (BMI) 29.7 Intake & Output: Intake and Output for Last 24 Hours 03/31/22 04/01/22 04/02/22 23:59 23:59 23:59 Intake Total 3942.5 / 3942.5 1816.25 / 1816.25 Output Total 700 / 700 1600 / 1600 Balance 3242.5 / 3242.5 216.25 / 216.25 Medical Nutrition Assessment Dietitian: Malnutrition Criteria Met Start: 03/30/22 11:06 Freq: Status: Active Protocol: Document 03/30/22 11:06 JORDY (Rec: 03/30/22 11:06 [facility] [id number]) Nutrition Malnutrition Evidence of Malnutrition Exists Yes Malnutrition (severe): Acute Illness/Injury Evidenced By Suboptimal Energy Intake ( Severe),Weight Loss (Severe) Clinical Problem Acute Disease or Injury Related Malnutrition Etiology related to acute viral syndrome Signs/Symptoms as evidenced by 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 Status Active Problem Recommendation Dietitian Recommendations/Changes Will liberalize diet to Consistent CHO d/t s/s of malnutrition Will order 4 oz glucerna shake 4x/day w/ medpass for increased nutrition if consumed. Lab / Micro Data Result Diagrams: 03/30/22 07:29 03/30/22 07:29 Labs: Laboratory Results - last 24 hr 03/31/22 04:31: Lyme Total Antibody Negative, Lyme Disease Interpret REF LAB 04/01/22 11:07: POC Glucose 210 H 04/01/22 14:23: POC Glucose 189 H 04/01/22 17:06: POC Glucose 134 H 04/01/22 21:20: POC Glucose 200 H 04/02/22 01:46: POC Glucose 144 H 04/02/22 05:53: POC Glucose 150 H Micro: Microbiology 03/28/22 19:25 Blood Culture (Wb) - Right Hand Blood Culture - Preliminary No growth in 48 hours. 03/28/22 18:18 Blood Culture (Wb) - Left Hand Blood Culture - Preliminary No growth in 48 hours. 03/28/22 18:44 Urine Catheter - [place] Urine Culture - Final Culture exhibits no growth. 03/29/22 20:15 Stool Enteric Bacteriology - Final 03/29/22 20:15 Stool C. difficile DNA Amplification - Final 03/28/22 23:00 Mucosa - Nasopharyngeal Respiratory Panel (PCR) - Final 03/28/22 18:44 Urine Catheter - Catheter Legionella Antigen - Final 03/28/22 18:44 Urine Catheter - Catheter Streptococcus pneumoniae Antigen (M - Final 03/28/22 18:49 Nasal Secretion SARS-CoV-2 & FLU Antigen (Rapid) - Final Physical Exam Narrative GENERAL: Patient in no apparent distress HEENT: Atraumatic; normocephalic EYES; Anicteric, Normal Conjunctiva NECK; supple, normal thyroid, RESPIRATORY: Diminished to auscultation CARDIOVASCULAR: Regular S1 S2, GI: soft, normoactive bowel sounds, : No Renal angle tenderness; EXTREMITIES: Edema involving both hands and feet MUSCULOSKELETAL: no muscle wasting NEURO: Awake; no lateralizing signs. 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 Acute encephalopathy ? Secondary to dehydration from acute viral syndrome. Patient has been treated symptomatically level of sensorium appears to be improving ? Patient initial respiratory viral panel was negative added COVID 19. Patient has also been seen by Dr. Neff with infectious disease is noted recommendations reviewed ? 04/02/2022 patient mental state back to baseline 2. Cardiomyopathy ?? Viral myocarditis ? 2D echo performed on 03/30/2022 demonstrated normal LV size. The estimated ejection fraction is 15 %. Mild (1+) eccentric mitral valve insufficiency. Pulmonary artery systolic pressure is 48 mmHg. Mild to moderate (1-2+) tricuspid valve insufficiency. Compared to previous study, the left ventricular systolic function has worsened. Previous echo performed on 08/08/2020 demonstrated EF of 65% ? 03/31/2022 consult placed to cardiology Case discussed with Dr. Bustos. Case was discussed with Dr. Bustos after he evaluated patient he recommended for patient to be transferred to tertiary care center call was placed to [facility]. Awaiting bed availability prior to transfer ? 04/01/2022. Awaiting transfer to [facility]. Patient was started on low-dose diuretics in view of patient appearing to be fluid overloaded 3. Acute congestive heart failure with reduced ejection fraction ? Patient was started on Lasix the day prior with strict input and output and fluid restriction. EF as stated above was 15%. Currently awaiting transfer to [facility] 4. Diabetes mellitus type 2 ? Patient is on an insulin pump, this was held on admission please on Accu-Cheks before meals and at bedtime. With patient experiencing hypoglycemic episode did add long-acting insulin 5. Congenital heart disease (membranous VSD) ? As a result of patient Down syndrome 6. Hypothyroidism - Patient is on levothyroxine home dose continued 7. DVT prophylaxis ? SC Lovenox 8.. severe malnutrition ? 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 Will liberalize diet to Consistent CHO d/t s/s of malnutrition Will order 4 oz glucerna shake 4x/day w/ medpass for increased nutrition if consumed. 9. Down syndrome ? Complicating care Patient's case discussed with mom Charges/Coding Visit Charges Inpatient E&M: 77427 Subs Hosp L2
--- NOTE | 2022-04-02 09:17 | NURSING ---
I spoke to at
--- NOTE | 2022-04-02 09:18 | NURSING ---
I spoke with Kaylie at [facility] transfer line she stated she is on the wait list howere th
--- NOTE | 2022-04-02 09:21 | NURSING ---
I spoke with Kaylie at [facility] transfer line she stated the PT is on their wait list however they are full and have no beds right now.
[2022-04-02] MEDS: Glucerna Shake 120 ML LIQUID PO ×4 (10:03→21:43)
[2022-04-02] MEDS: Insulin Glargine-YFGN 100 UNIT/ML Pen 10 UNIT SC (10:04)
[2022-04-02] MEDS: Enoxaparin 40 MG/0.4 ML Syringe SC (10:05)
[2022-04-02 10:25] LABS: Bedside Glucose 210 mg/dL (74-106)
[2022-04-02] MEDS: Furosemide 40 MG/4 ML Vial IV (11:23)
[2022-04-02] MEDS: 0.9% Saline Lock 10 ML Syringe IV (11:23)
[2022-04-02 11:31] LABS: Absolute Lymphocyte Count 0.77 X10^3/uL (0.83-4.51); Absolute Neutrophil Count 4.5 X10^3/uL (2.0-7.7); Basophil# 0.03 X10^3/uL; Basophil% 0.5 % (0-1); Eosinophil# 0.11 X10^3/uL; Eosinophils% 1.8 % (0-5); Hematocrit 37.1 % (37-47); Lymphocyte # 0.77 X10^3/ul (0.83-4.51); Lymphocyte % 12.8 % (19-41); Mean Corp Hgb Conc 32.3 g/dL (32-36); Mean Corpuscular Hgb 33.9 pg (27.0-32.0); Mean Corpuscular Volume 104.8 fL (81-99); Mean Platelet Vol. 11.3 fl (6.2-12.0); Monocyte# 0.57 X10^3/uL; Monocyte% 9.5 % (0-10); NRBC Flagged by Analyzer 0 % (0-5); Neutrophil # 4.49 X10^3/uL (2.7-7.7); Neutrophil % 74.9 % (47-70); Platelet Count 219 K/mm3 (150-450); RBC Distribution Width CV 13.2 % (11.6-14.6); RBC Distribution Width SD 50.7 fl (35.1-43.9); Red Blood Count 3.54 M/mm3 (4.2-5.4)
[2022-04-02 11:56] LABS: Anion Gap 5 (5-15); BUN 13 mg/dL (7-18); BUN/Creat Ratio 15.6 RATIO (10-20); Chloride 107 mmol/L (98-107); Creatinine, Serum 0.83 mg/dL (0.55-1.02); EST Glomerular Filtration Rate 81 mL/min (>60); Est Glom Filt Rate - Afr Amer 98 mL/min (>60); Estimated Creatinine Clearance 65.36 ml/min; Glucose 228 mg/dL (74-106); Potassium 4.2 mmol/L (3.5-5.1); Sodium Level 138 mmol/L (136-145)
[2022-04-02 13:01] LABS: Bedside Glucose 225 mg/dL (74-106)
[2022-04-02 18:20] LABS: Bedside Glucose 197 mg/dL (74-106)
[2022-04-02] MEDS: Senna/Docusate Sodium 1 Tablet 2 TABLET PO (21:44)
[2022-04-03] VITALS (12 sets, daily range): BP systolic 90–106; BP diastolic 59–89; PULSE 83–103; RESP 16–17; TEMP 36.4–36.7; O2SAT 93–96
[2022-04-03] MEDS: Insulin Lispro 100 UNIT/ML INSULN.PEN SC ×3 (01:50→12:45)
[2022-04-03 02:00] LABS: Bedside Glucose 316 mg/dL (74-106)
[2022-04-03 02:15] LABS: Bedside Glucose 180 mg/dL (74-106)
--- NOTE | 2022-04-03 04:54 | NURSING ---
patient put on 1.5L, SPO2 87-88% on room air, patient now at 93%
[2022-04-03] MEDS: Levothyroxine 50 MCG Tablet PO (06:27)
[2022-04-03 06:29] LABS: Hematocrit 34.3 % (37-47); Hemoglobin 11.6 g/dL (12.0-15.0); Mean Corp Hgb Conc 33.8 g/dL (32-36); Mean Corpuscular Hgb 34.8 pg (27.0-32.0); Mean Platelet Vol. 11.1 fl (6.2-12.0); Platelet Count 226 K/mm3 (150-450); RBC Distribution Width SD 48.2 fl (35.1-43.9); Red Blood Count 3.33 M/mm3 (4.2-5.4); White Blood Count 4.6 K/mm3 (4.4-11.0)
[2022-04-03 07:01] LABS: Bedside Glucose 134 mg/dL (74-106)
[2022-04-03 07:01] LABS: ALB/GLOB Ratio 0.7 RATIO (0.9-2.4); AST(SGOT) 67 U/L (15-37); Alanine Aminotransfer ALT/SGPT 49 U/L (13-56); Albumin, Serum 2.2 g/dL (3.2-5.0); Alkaline Phosphatase 117 U/L (45-117); Anion Gap 4 (5-15); BUN 14 mg/dL (7-18); BUN/Creat Ratio 19.3 RATIO (10-20); Calcium,Total 7.7 mg/dL (8.5-10.1); Chloride 106 mmol/L (98-107); Creatinine, Serum 0.72 mg/dL (0.55-1.02); EST Glomerular Filtration Rate 95 mL/min (>60); Est Glom Filt Rate - Afr Amer 115 mL/min (>60); Estimated Creatinine Clearance 75.35 ml/min; Globulin 3.3 g/dL (2.2-4.2); Glucose 132 mg/dL (74-106); Phosphorus 1.9 mg/dL (2.5-4.9); Potassium 3.5 mmol/L (3.5-5.1); Protein, Total 5.5 g/dL (6.4-8.2); Sodium Level 138 mmol/L (136-145)
--- NOTE | 2022-04-03 07:35 | PN.HOSP_ITS ---
Objective Data Objective Data Vital Signs: Vital Signs Temp Pulse Resp BP Pulse Ox O2 Del Method O2 Flow Rate 97.6 F L 96 16 97/71 96 Nasal Cannula 1.5 04/03/22 06:20 04/03/22 07:00 04/03/22 06:20 04/03/22 06:20 04/03/22 06:20 04/03/22 06:20 04/03/22 06:20 Oxygen Flow Rate (L/min) 1.5 Oxygen Delivery Method Nasal Cannula Weight: 69.2 kg Body Mass Index (BMI) 29.7 Intake & Output: Intake and Output for Last 24 Hours 04/01/22 04/02/22 04/03/22 23:59 23:59 23:59 Intake Total 1816.25 / 1816.25 1100 / 1100 Output Total 1600 / 1600 750 / 750 Balance 216.25 / 216.25 350 / 350 Medical Nutrition Assessment Dietitian: Malnutrition Criteria Met Start: 03/30/22 11:06 Freq: Status: Active Protocol: Document 03/30/22 11:06 JORDY (Rec: 03/30/22 11:06 JORDY [id number]) Nutrition Malnutrition Evidence of Malnutrition Exists Yes Malnutrition (severe): Acute Illness/Injury Evidenced By Suboptimal Energy Intake ( Severe),Weight Loss (Severe) Clinical Problem Acute Disease or Injury Related Malnutrition Etiology related to acute viral syndrome Signs/Symptoms as evidenced by 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 Status Active Problem Recommendation Dietitian Recommendations/Changes Will liberalize diet to Consistent CHO d/t s/s of malnutrition Will order 4 oz glucerna shake 4x/day w/ medpass for increased nutrition if consumed. Lab / Micro Data Result Diagrams: 04/03/22 05:58 04/03/22 05:58 Labs: Laboratory Results - last 24 hr 04/02/22 10:01: POC Glucose 210 H 04/02/22 11:19: WBC 6.0, RBC 3.54 L, Hgb 12.0, Hct 37.1, MCV 104.8 H, MCH 33.9 H , MCHC 32.3, RDW Std Deviation 50.7 H, RDW Coeff of Lamine 13.2, Plt Count 219, MPV 11.3, Immature Gran % (Auto) 0.500, Neut % (Auto) 74.9 H, Lymph % (Auto) 12.8 L, Bates % (Auto) 9.5, Eos % (Auto) 1.8, Baso % (Auto) 0.5, Absolute Neuts (auto) 4.5, Absolute Lymphs (auto) 0.77 L, Nucleated RBC % 0 04/02/22 11:19: Sodium 138, Potassium 4.2, Chloride 107, Carbon Dioxide 26.0, Anion Gap 5, BUN 13, Creatinine 0.83, Estim Creat Clear Calc 65.36, Est GFR (MDRD) Af Amer 98, Est GFR (MDRD) Non-Af 81, BUN/Creatinine Ratio 15.6, Glucose 228 H, Calcium 8.0 L, Magnesium 2.0 04/02/22 12:37: POC Glucose 225 H 04/02/22 17:58: POC Glucose 197 H 04/02/22 21:41: POC Glucose 316 H 04/03/22 01:49: POC Glucose 180 H 04/03/22 05:58: WBC 4.6, RBC 3.33 L, Hgb 11.6 L, Hct 34.3 L, MCV 103.0 H, MCH 34.8 H, MCHC 33.8, RDW Std Deviation 48.2 H, RDW Coeff of Lamine 13.0, Plt Count 226, MPV 11.1 04/03/22 05:58: Sodium 138, Potassium 3.5, Chloride 106, Carbon Dioxide 28.0, Anion Gap 4 L, BUN 14, Creatinine 0.72, Estim Creat Clear Calc 75.35, Est GFR (MDRD) Af Amer 115, Est GFR (MDRD) Non-Af 95, BUN/Creatinine Ratio 19.3, Glucose 132 H, Calcium 7.7 L, Phosphorus 1.9 L, Total Bilirubin 0.40, AST 67 H, ALT 49, Alkaline Phosphatase 117, Total Protein 5.5 L, Albumin 2.2 L, Globulin 3.3, Albumin/Globulin Ratio 0.7 L 04/03/22 06:24: POC Glucose 134 H Micro: Microbiology 03/28/22 18:18 Blood Culture (Wb) - Left Hand Blood Culture - Final No growth in 5 days. 03/28/22 19:25 Blood Culture (Wb) - Right Hand Blood Culture - Final No growth in 5 days. 03/28/22 18:44 Urine Catheter - [place] Urine Culture - Final Culture exhibits no growth. 03/29/22 20:15 Stool Enteric Bacteriology - Final 03/29/22 20:15 Stool C. difficile DNA Amplification - Final 03/28/22 23:00 Mucosa - Nasopharyngeal Respiratory Panel (PCR) - Final 03/28/22 18:44 Urine Catheter - Catheter Legionella Antigen - Final 03/28/22 18:44 Urine Catheter - Catheter Streptococcus pneumoniae Antigen (M - Final 03/28/22 18:49 Nasal Secretion SARS-CoV-2 & FLU Antigen (Rapid) - Final Physical Exam Narrative GENERAL: Patient in no apparent distress HEENT: Atraumatic; normocephalic EYES; Anicteric, Normal Conjunctiva NECK; supple, normal thyroid, RESPIRATORY: Diminished to auscultation CARDIOVASCULAR: Regular S1 S2, GI: soft, normoactive bowel sounds, : No Renal angle tenderness; EXTREMITIES: Edema involving both hands and feet MUSCULOSKELETAL: no muscle wasting NEURO: Awake; no lateralizing signs. 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 Acute encephalopathy ? Secondary to dehydration from acute viral syndrome. Patient has been treated symptomatically level of sensorium appears to be improving ? Patient initial respiratory viral panel was negative added COVID 19. Patient has also been seen by Dr. Neff with infectious disease is noted recommendations reviewed ? 04/02/2022 patient mental state back to baseline 2. Cardiomyopathy ?? Viral myocarditis ? 2D echo performed on 03/30/2022 demonstrated normal LV size. The estimated ejection fraction is 15 %. Mild (1+) eccentric mitral valve insufficiency. Pulmonary artery systolic pressure is 48 mmHg. Mild to moderate (1-2+) tricuspid valve insufficiency. Compared to previous study, the left ventricular systolic function has worsened. Previous echo performed on 08/08/2020 demonstrated EF of 65% ? 03/31/2022 consult placed to cardiology Case discussed with Dr. Bustos. Case was discussed with Dr. Bustos after he evaluated patient he recommended for patient to be transferred to tertiary care center call was placed to [facility]. Awaiting bed availability prior to transfer ? 04/01/2022. Awaiting transfer to [facility]. Patient was started on low-dose diuretics in view of patient appearing to be fluid overloaded 3. Acute congestive heart failure with reduced ejection fraction ? Patient was started on Lasix the day prior with strict input and output and fluid restriction. EF as stated above was 15%. Currently awaiting transfer to [facility] 4. Diabetes mellitus type 2 ? Patient is on an insulin pump, this was held on admission please on Accu-Cheks before meals and at bedtime. With patient experiencing hypoglycemic episode did add long-acting insulin 5. Congenital heart disease (membranous VSD) ? As a result of patient Down syndrome 6. Hypothyroidism - Patient is on levothyroxine home dose continued 7. DVT prophylaxis ? SC Lovenox 8.. severe malnutrition ? 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 Will liberalize diet to Consistent CHO d/t s/s of malnutrition Will order 4 oz glucerna shake 4x/day w/ medpass for increased nutrition if consumed. 9. Down syndrome ? Complicating care Patient's case discussed with mom
[2022-04-03 09:06] LABS: Bedside Glucose 158 mg/dL (74-106)
--- NOTE | 2022-04-03 09:12 | NURSING ---
I spoke with Serena at [facility] she stated that PT is still on the list however they are d/c dependent she could not give me a timeline.
[2022-04-03] MEDS: Insulin Glargine-YFGN 100 UNIT/ML Pen 10 UNIT SC (09:29)
[2022-04-03] MEDS: Enoxaparin 40 MG/0.4 ML Syringe SC (09:30)
[2022-04-03] MEDS: Glucerna Shake 120 ML LIQUID PO (09:32)
--- NOTE | 2022-04-03 09:36 | PCM.PN.HOSP ---
Subjective Subjective Patient seen remains clinically stable transfer to [facility] pending. Case was discussed with Dr. Bustos for patient will be started on low-dose beta-blockers. Elevated echo ordered for EF assessment Objective Data Objective Data Vital Signs: Vital Signs Temp Pulse Resp BP Pulse Ox O2 Del Method O2 Flow Rate 97.6 F L 96 16 97/71 95 Nasal Cannula 1.5 04/03/22 06:20 04/03/22 07:00 04/03/22 06:20 04/03/22 06:20 04/03/22 08:20 04/03/22 08:20 04/03/22 08:20 Oxygen Flow Rate (L/min) 1.5 Oxygen Delivery Method Nasal Cannula Weight: 69.2 kg Body Mass Index (BMI) 29.7 Intake & Output: Intake and Output for Last 24 Hours 04/01/22 04/02/22 04/03/22 23:59 23:59 23:59 Intake Total 1816.25 / 1816.25 1100 / 1100 Output Total 1600 / 1600 750 / 750 Balance 216.25 / 216.25 350 / 350 Medical Nutrition Assessment Dietitian: Malnutrition Criteria Met Start: 03/30/22 11:06 Freq: Status: Active Protocol: Document 03/30/22 11:06 JORDY (Rec: 03/30/22 11:06 JORDY [id number]) Nutrition Malnutrition Evidence of Malnutrition Exists Yes Malnutrition (severe): Acute Illness/Injury Evidenced By Suboptimal Energy Intake ( Severe),Weight Loss (Severe) Clinical Problem Acute Disease or Injury Related Malnutrition Etiology related to acute viral syndrome Signs/Symptoms as evidenced by 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 Status Active Problem Recommendation Dietitian Recommendations/Changes Will liberalize diet to Consistent CHO d/t s/s of malnutrition Will order 4 oz glucerna shake 4x/day w/ medpass for increased nutrition if consumed. Lab / Micro Data Result Diagrams: 04/03/22 05:58 04/03/22 05:58 Labs: Laboratory Results - last 24 hr 04/02/22 10:01: POC Glucose 210 H 04/02/22 11:19: WBC 6.0, RBC 3.54 L, Hgb 12.0, Hct 37.1, MCV 104.8 H, MCH 33.9 H, MCHC 32.3, RDW Std Deviation 50.7 H, RDW Coeff of Lamine 13.2, Plt Count 219, MPV 11.3, Immature Gran % (Auto) 0.500, Neut % (Auto) 74.9 H, Lymph % (Auto) 12.8 L, [place] % (Auto) 9.5, Eos % (Auto) 1.8, Baso % (Auto) 0.5, Absolute Neuts (auto) 4.5, Absolute Lymphs (auto) 0.77 L, Nucleated RBC % 0 04/02/22 11:19: Sodium 138, Potassium 4.2, Chloride 107, Carbon Dioxide 26.0, Anion Gap 5, BUN 13, Creatinine 0.83, Estim Creat Clear Calc 65.36, Est GFR (MDRD) Af Amer 98, Est GFR (MDRD) Non-Af 81, BUN/Creatinine Ratio 15.6, Glucose 228 H, Calcium 8.0 L, Magnesium 2.0 04/02/22 12:37: POC Glucose 225 H 04/02/22 17:58: POC Glucose 197 H 04/02/22 21:41: POC Glucose 316 H 04/03/22 01:49: POC Glucose 180 H 04/03/22 05:58: WBC 4.6, RBC 3.33 L, Hgb 11.6 L, Hct 34.3 L, MCV 103.0 H, MCH 34.8 H, MCHC 33.8, RDW Std Deviation 48.2 H, RDW Coeff of Lamine 13.0, Plt Count 226, MPV 11.1 04/03/22 05:58: Sodium 138, Potassium 3.5, Chloride 106, Carbon Dioxide 28.0, Anion Gap 4 L, BUN 14, Creatinine 0.72, Estim Creat Clear Calc 75.35, Est GFR (MDRD) Af Amer 115, Est GFR (MDRD) Non-Af 95, BUN/Creatinine Ratio 19.3, Glucose 132 H, Calcium 7.7 L, Phosphorus 1.9 L, Total Bilirubin 0.40, AST 67 H, ALT 49, Alkaline Phosphatase 117, Total Protein 5.5 L, Albumin 2.2 L, Globulin 3.3, Albumin/Globulin Ratio 0.7 L 04/03/22 06:24: POC Glucose 134 H 04/03/22 08:45: POC Glucose 158 H Micro: Microbiology 03/28/22 18:18 Blood Culture (Wb) - Left Hand Blood Culture - Final No growth in 5 days. 03/28/22 19:25 Blood Culture (Wb) - Right Hand Blood Culture - Final No growth in 5 days. 03/28/22 18:44 Urine Catheter - [place] Urine Culture - Final Culture exhibits no growth. 03/29/22 20:15 Stool Enteric Bacteriology - Final 03/29/22 20:15 Stool C. difficile DNA Amplification - Final 03/28/22 23:00 Mucosa - Nasopharyngeal Respiratory Panel (PCR) - Final 03/28/22 18:44 Urine Catheter - Catheter Legionella Antigen - Final 03/28/22 18:44 Urine Catheter - Catheter Streptococcus pneumoniae Antigen (M - Final 03/28/22 18:49 Nasal Secretion SARS-CoV-2 & FLU Antigen (Rapid) - Final Physical Exam Narrative GENERAL: Patient in no apparent distress HEENT: Atraumatic; normocephalic EYES; Anicteric, Normal Conjunctiva NECK; supple, normal thyroid, RESPIRATORY: Diminished to auscultation CARDIOVASCULAR: Regular S1 S2, GI: soft, normoactive bowel sounds, : No Renal angle tenderness; EXTREMITIES: Edema involving both hands and feet MUSCULOSKELETAL: no muscle wasting NEURO: Awake; no lateralizing signs. 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 Acute encephalopathy ? Secondary to dehydration from acute viral syndrome. Patient has been treated symptomatically level of sensorium appears to be improving ? Patient initial respiratory viral panel was negative added COVID 19. Patient has also been seen by Dr. Neff with infectious disease is noted recommendations reviewed ? 04/02/2022 patient mental state back to baseline 2. Cardiomyopathy ?? Viral myocarditis ? 2D echo performed on 03/30/2022 demonstrated normal LV size. The estimated ejection fraction is 15 %. Mild (1+) eccentric mitral valve insufficiency. Pulmonary artery systolic pressure is 48 mmHg. Mild to moderate (1-2+) tricuspid valve insufficiency. Compared to previous study, the left ventricular systolic function has worsened. Previous echo performed on 08/08/2020 demonstrated EF of 65% ? 03/31/2022 consult placed to cardiology Case discussed with Dr. Bustos. Case was discussed with Dr. Bustos after he evaluated patient he recommended for patient to be transferred to tertiary care center call was placed to [facility]. Awaiting bed availability prior to transfer ? 04/01/2022. Awaiting transfer to [facility]. Patient was started on low-dose diuretics in view of patient appearing to be fluid overloaded ? 04/02/2022; Patient seen remains clinically stable transfer to [facility] pending. Case was discussed with Dr. Bustos for patient will be started on low-dose beta-blockers. Elevated echo ordered for EF assessment 3. Acute congestive heart failure with reduced ejection fraction ? Patient was started on Lasix the day prior with strict input and output and fluid restriction. EF as stated above was 15%. Currently awaiting transfer to [facility] 4. Diabetes mellitus type 2 ? Patient is on an insulin pump, this was held on admission please on Accu-Cheks before meals and at bedtime. With patient experiencing hypoglycemic episode did add long-acting insulin 5. Congenital heart disease (membranous VSD) ? As a result of patient Down syndrome 6. Hypothyroidism - Patient is on levothyroxine home dose continued 7. DVT prophylaxis ? SC Lovenox 8.. severe malnutrition ? 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 Will liberalize diet to Consistent CHO d/t s/s of malnutrition Will order 4 oz glucerna shake 4x/day w/ medpass for increased nutrition if consumed. 9. Down syndrome ? Complicating care Patient's case discussed with mom Charges/Coding Visit Charges Inpatient E&M: 78519 Subs Hosp L2
--- NOTE | 2022-04-03 09:38 | ECHOL_ITS ---
Reason For Study: CHF Procedure This was a limited 2D transthoracic echocardiogram. Limited views were obtained. Exam performed portable in patient room. Left Ventricle Moderately dilated left ventricle. Apical false tendon noted. Severe segmental systolic dysfunction (see wall motion). The estimated ejection fraction is 15 %. Diastolic function is indeterminate. Basal inferoseptal: Hypokinetic. Basal anteroseptal: Hypokinetic. Mid-Anterior : Hypokinetic. Mid- Lateral : Hypokinetic. Mid-Posterior: Hypokinetic. Mid-Inferior: Hypokinetic. Mid-inferoseptal : Hypokinetic. Mid-anteroseptal : Hypokinetic. [place] : Hypokinetic. Right Ventricle Normal RV size. Normal systolic function. Atria Normal left atrium. Normal right atrium. Mitral Valve There is no mitral annular calcification. Normal mitral valve. Trivial mitral valve insufficiency. Tricuspid Valve Normal tricuspid valve. Trivial tricuspid valve insufficiency. Unable to estimate RV systolic pressure due to insufficient tricuspid regurgitant envelope. Aortic Valve Trisinus/trileaflet aortic valve. Normal aortic valve. Pulmonic Valve The pulmonic valve is not well visualized. Trivial pulmonic valve insufficiency. Pericardium/Pleural No pericardial effusion. Echo lucency compatible with a pleural effusion. MMode/2D Measurements & Calculations LVIDd: 6.0 cm IVSd: 0.79 cm LA dimension: 2.6 cm LVIDs: 5.1 cm LVPWd: 1.1 cm FS: 15.1 % LVAd ap4: 36.1 cm2 SV(MOD-sp4): 34.7 ml SV(sp4-el): 35.3 ml LVLd ap4: 8.3 cm EDV(MOD-sp4): 129.8 ml EDV(sp4-el): 133.4 ml LVAs ap4: 30.7 cm2 LVLs ap4: 8.1 cm ESV(MOD-sp4): 95.1 ml ESV(sp4-el): 98.1 ml EF(MOD-sp4): 26.7 % EF(sp4-el): 26.5 % Time Measurements MV dec time: 0.13 sec Doppler Measurements & Calculations MV E max adarsh: 88.0 cm/sec Lat Peak E' Adarsh: 8.8 cm/sec Med Peak E' Adarsh: 5.1 cm/sec MV A max adarsh: 108.2 cm/sec E/E' lat: 10.0 E/E' med: 17.3 MV E/A: 0.81 ECHO/Echo, Limited Study Interpretation Summary Limited views were obtained. Moderately dilated left ventricle. Severe segmental systolic dysfunction (see wall motion). The estimated ejection fraction is 15 %. Apical false tendon noted. Trivial mitral valve insufficiency. Trivial tricuspid valve insufficiency. Trivial pulmonic valve insufficiency. Unable to estimate RV systolic pressure due to insufficient tricuspid regurgita nt envelope. Diastolic function is indeterminate. Echo lucency compatible with a pleural effusion. Ordering Physician: Noah Amaya Referring Physician: Kaylee Estrada Performed By: Jamaal Scales RCS
[2022-04-03] MEDS: Furosemide 20 MG/2 ML VIAL IV (11:00)
[2022-04-03] MEDS: 0.9% Saline Lock 10 ML Syringe IV (11:00)
[2022-04-03] MEDS: Carvedilol 3.125 MG TABLET PO (11:40)
--- NOTE | 2022-04-03 12:42 | DS.PCM_ITS ---
Providers Date of Admission: 03/29/22 Date of Discharge: 04/03/22 Primary Care Physician: Dr. Kaylee Estrada DO Consultations 03/30/22 01:16 Consult: Infectious Disease Routine Consulting Provider: William Neff Reason for Consult: SIRS, unclear etiology EMERGENT Consult: No Notified: Yes Date Notified: 03/30/22 Time Notified: 08:21 Method of Notification: Answering Service 03/31/22 10:50 Consult: Cardiology Routine Consulting Provider: Warren Bustos Reason for Consult: cardiomyopathy EMERGENT Consult: No Notified: Yes Date Notified: 03/31/22 Time Notified: 10:50 Method of Notification: Verbal Reason For Visit: ACUTE VIRAL SYNDROME Diagnosis Discharge Diagnosis (1) Cardiomyopathy: Status: Acute Code(s): I42.9 - Cardiomyopathy, unspecified (2) Ventricular septal defect (VSD), membranous: Status: Chronic Code(s): Q21.0 - Ventricular septal defect (3) Viral illness: Status: Acute Code(s): B34.9 - Viral infection, unspecified (4) Encephalopathy: Status: Acute Code(s): G93.40 - Encephalopathy, unspecified (5) HLD (hyperlipidemia): Status: Chronic Code(s): E78.5 - Hyperlipidemia, unspecified Qualifiers: Hyperlipidemia type: unspecified Qualified Code(s): E78.5 - Hyperlipidemia, unspecified (6) Hypothyroidism: Status: Chronic Code(s): E03.9 - Hypothyroidism, unspecified Qualifiers: 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 Qualified Code(s): E03.8 - Other specified hypothyroidism; E06.3 - Autoimmune thyroiditis (7) Trisomy 21: Status: Acute Code(s): Q90.9 - Down syndrome, unspecified Medications at Discharge Home Medications ascorbate calcium (vitamin C) 500 mg tablet 500 mg PO DAILY supplement 12/24/20 cholecalciferol (vitamin D3) 125 mcg (5,000 unit) capsule 125 mcg PO DAILY supplement 12/24/20 cinnamon bark 500 mg capsule (Cinnamon) 500 mg PO DAILY supplement 12/24/20 insulin pump cartridge #5 ea 12/24/20 multivitamin (Daily Multi-Vitamin tablet) 1 tab PO DAILY supplement 12/24/20 multivitamin with minerals (Hair,Skin and Nails tablet) 1 tab PO DAILY supplement 12/24/20 blood-glucose meter,continuous (Dexcom G6 Track Laborer misc) #1 ea 01/02/21 flash glucose sensor (FreeStyle [place] 2 Sensor kit) #2 ea 08/19/21 OneTouch Ultra Test (blood sugar diagnostic) #250 ea 08/20/21 OneTouch Ultra2 Meter (blood-glucose meter) #1 ea 08/20/21 glucagon 1 mg solution for injection 1 mg subcut ONCE low blood sugar 01/12/22 Humalog U-100 Insulin 100 unit/mL subcutaneous solution (insulin lispro) 100 unit subcut DAILY #30 mL 03/10/22 Omnipod 5 G6 Intro Kit (Gen 5) subcutaneous cartridge with controller (insulin pump cart,auto,BT-cntr) #1 ea 03/11/22 insulin pump cart,automated,BT (Omnipod 5 G6 Pods (Gen 5) subcutaneous cartridge) #30 ea 03/11/22 escitalopram oxalate 5 mg tablet (Lexapro) 5 mg depression 03/28/22 levothyroxine 50 mcg tablet 50 mcg PO DAILY hypothyroidism 03/28/22 Hospital Course Summary of Care Provided Minutes Spent on Discharge: 40 Hospital Course: Patient is a 41-year-old lady with history of Down syndrome presented with altered mental status and fever 1.? Acute encephalopathy ? Secondary to dehydration from acute viral syndrome.? Patient has been treated symptomatically level of sensorium appears to be improving ? Patient initial respiratory viral panel was negative added COVID 19.? Patient has also been seen by Dr. Neff with infectious disease is noted recommendations reviewed ? 04/02/2022 patient mental state back to baseline 2.? Cardiomyopathy ??? Viral myocarditis ? 2D echo performed on 03/30/2022 demonstrated normal LV size. The estimated ejection fraction is 15 %. Mild (1+) eccentric mitral valve insufficiency. Pulmonary artery systolic pressure is 48 mmHg. Mild to moderate (1-2+) tricuspid valve insufficiency. Compared to previous study, the left ventricular systolic function has worsened.??Previous echo performed on 08/08/2020 demonstrated EF of 65% ? 03/31/2022 consult placed to cardiology Case discussed with Dr. Bustos.? Case was discussed with Dr. Bustos after he evaluated patient he recommended for patient to be transferred to tertiary care center call was placed to [facility].? Awaiting bed availability prior to transfer ? 04/01/2022.? Awaiting transfer to [facility].? Patient was started on low-dose diuretics in view of patient appearing to be fluid overloaded ? 04/03/2022; Patient seen remains clinically stable transfer to [facility] pending.? Case was discussed with Dr. Bustos? for patient will be started on low-dose beta-blockers.? Elevated echo ordered for EF assessment ? 04/03/2022 patient was transferred to [facility] once bed became available 3.? Acute congestive heart failure with reduced ejection fraction ? Patient was started on Lasix the day prior with strict input and output and fluid restriction.? EF as stated above was 15%.? Currently awaiting transfer to [facility] 4.? Diabetes mellitus type 2 ? Patient is on an insulin pump, this was held on admission please on Accu-Cheks before meals and at bedtime.? With patient experiencing hypoglycemic episode did add long-acting insulin 5.? Congenital heart disease (membranous VSD) ? As a result of patient Down syndrome 6.? Hypothyroidism - Patient is on levothyroxine home dose continued 7.? DVT prophylaxis ? SC Lovenox 8.. severe malnutrition ? 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 Will liberalize diet to Consistent CHO d/t s/s of malnutrition Will order 4 oz glucerna shake 4x/day w/ medpass for increased nutrition if consumed. 9. Down syndrome ? Complicating care Patient's case discussed with mom Physical Exam Narrative GENERAL: Patient in no apparent distress HEENT: Atraumatic; normocephalic EYES; Anicteric, Normal Conjunctiva NECK; supple, normal thyroid, RESPIRATORY: Diminished to auscultation CARDIOVASCULAR:? Regular S1 S2, GI:? soft, normoactive bowel sounds, : No Renal angle tenderness; EXTREMITIES: Edema involving both hands and feet MUSCULOSKELETAL:? no muscle wasting NEURO:? Awake;? no lateralizing signs. SKIN:? 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 Status Active Problem Recommendation Dietitian Recommendations/Changes Will liberalize diet to Consistent CHO d/t s/s of malnutrition Will order 4 oz glucerna shake 4x/day w/ medpass for increased nutrition if consumed. Weight / BMI Weight Weight: 69.2 kg Body Mass Index (BMI) 29.7 ABG / Lab / Microbiology Data Result Diagrams: 04/03/22 05:58 04/03/22 05:58 Laboratory: Laboratory Results - last 24 hr 04/02/22 12:37: POC Glucose 225 H 04/02/22 17:58: POC Glucose 197 H 04/02/22 21:41: POC Glucose 316 H 04/03/22 01:49: POC Glucose 180 H 04/03/22 05:58: WBC 4.6, RBC 3.33 L, Hgb 11.6 L, Hct 34.3 L, MCV 103.0 H, MCH 34.8 H, MCHC 33.8, RDW Std Deviation 48.2 H, RDW Coeff of Lamine 13.0, Plt Count 226, MPV 11.1 04/03/22 05:58: Sodium 138, Potassium 3.5, Chloride 106, Carbon Dioxide 28.0, Anion Gap 4 L, BUN 14, Creatinine 0.72, Estim Creat Clear Calc 75.35, Est GFR (MDRD) Af Amer 115, Est GFR (MDRD) Non-Af 95, BUN/Creatinine Ratio 19.3, Glucose 132 H, Calcium 7.7 L, Phosphorus 1.9 L, Total Bilirubin 0.40, AST 67 H, ALT 49, Alkaline Phosphatase 117, Total Protein 5.5 L, Albumin 2.2 L, Globulin 3.3, Albumin/Globulin Ratio 0.7 L 04/03/22 06:24: POC Glucose 134 H 04/03/22 08:45: POC Glucose 158 H Microbiology: Microbiology 03/28/22 18:18 Blood Culture (Wb) - Left Hand Blood Culture - Final No growth in 5 days. 03/28/22 19:25 Blood Culture (Wb) - Right Hand Blood Culture - Final No growth in 5 days. 03/28/22 18:44 Urine Catheter - [place] Urine Culture - Final Culture exhibits no growth. 03/29/22 20:15 Stool Enteric Bacteriology - Final 03/29/22 20:15 Stool C. difficile DNA Amplification - Final 03/28/22 23:00 Mucosa - Nasopharyngeal Respiratory Panel (PCR) - Final 03/28/22 18:44 Urine Catheter - Catheter Legionella Antigen - Final 03/28/22 18:44 Urine Catheter - Catheter Streptococcus pneumoniae Antigen (M - Final 03/28/22 18:49 Nasal Secretion SARS-CoV-2 & FLU Antigen (Rapid) - Final Radiography Diagnostic Testing: Radiology Impression Echocardiogram 04/03/22 09:38 Interpretation Summary Limited views were obtained. Moderately dilated left ventricle. Severe segmental systolic dysfunction (see wall motion). The estimated ejection fraction is 15 %. Apical false tendon noted. Trivial mitral valve insufficiency. Trivial tricuspid valve insufficiency. Trivial pulmonic valve insufficiency. Unable to estimate RV systolic pressure due to insufficient tricuspid regurgitant envelope. Diastolic function is indeterminate. Echo lucency compatible with a pleural effusion. Ordering Physician: Noah Amaya Referring Physician: Kaylee Estrada Performed By: Jamaal Scales RCS D/C Instructions Discharge Diet: No restrictions Discharge Activity: Return to Normal Activity Call your doctor if you observe: Fever of 101 or Higher, Shortness of breath, Fainting spells and Chest pain Meaningful Use Info Meaningful Use Diagnoses (Choose all that apply): CHF AMI/Post PCI/Angioplasty Documented LVEF (%): 15 CHF GAYLE/ARB ordered at discharge?: No Reason GAYLE/ARB not ordered?: Hypotension Documented LVEF (%): 15 Discharge Plan Admission Admit Date/Time: 03/29/22 14:40 Attending Provider: Noah Amaya Primary Care Provider: Kaylee Estrada Consulting Providers: Shannan Hopson ; Rajinder Cabello ; William Neff ; Warren Bustos Discharge Orders/Prescriptions Prescriptions: Continued (DME) insulin pump cartridge Cartridge See Rx Instructions .ROUTE .MEDSUPPLY Qty: 5 Rx Instructions: As directed ascorbate calcium (vitamin C) 500 mg tablet 500 mg PO DAILY multivitamin [Daily Multi-Vitamin] Tablet 1 tab PO DAILY multivitamin with minerals [Hair,Skin and Nails] Tablet 1 tab PO DAILY cholecalciferol (vitamin D3) 125 mcg (5,000 unit) capsule 125 mcg PO DAILY cinnamon bark [Cinnamon] 500 mg capsule 500 mg PO DAILY (DME) blood-glucose meter [OneTouch Ultra2 Meter] Kit See Rx Instructions .ROUTE .MEDSUPPLY Qty: 1 0RF Rx Instructions: As directed (DME) OneTouch Ultra Test Strip See Rx Instructions .ROUTE .MEDSUPPLY Qty: 250 11RF Rx Instructions: test 8 times daily insulin lispro [Humalog U-100 Insulin] 100 unit/mL solution 100 unit subcut DAILY Qty: 30 5RF glucagon 1 mg recon soln 1 mg subcut ONCE escitalopram oxalate [Lexapro] 5 mg tablet 5 mg levothyroxine 50 mcg tablet 50 mcg PO DAILY (DME) Dexcom G6 Track Laborer Misc See Rx Instructions .ROUTE .MEDSUPPLY Qty: 1 0RF Rx Instructions: As directed (DME) FreeStyle [place] 2 Sensor Kit See Rx Instructions .ROUTE .MEDSUPPLY Qty: 2 6RF Rx Instructions: As directed (DME) Omnipod 5 G6 Pods (Gen 5) Cartridge See Rx Instructions .Route Qty: 30 1RF Rx Instructions: As directed (DME) Omnipod 5 G6 Intro Kit (Gen 5) Cartridge See Rx Instructions .Route Qty: 1 0RF Rx Instructions: As directed Discontinued cephalexin 500 mg capsule 500 mg PO TID 10 Days Qty: 30 0RF Referrals / Follow Up: Kaylee Estrada DO [Primary Care Provider] - Within 2 Weeks Disposition Disposition (needs filled in before D/C Order can be placed): Acute Care Hospital Charges/Coding Visit Charges Inpatient E&M: 27175 Disch Hosp
--- NOTE | 2022-04-03 12:52 | NURSING ---
Mother at bedside and updated that patient has a bed at [facility] now. Will update with transport details when we have them.
[2022-04-03 13:05] LABS: Bedside Glucose 302 mg/dL (74-106)
--- NOTE | 2022-04-03 17:04 | PCM.PN.CARD ---
Subjective Subjective The patient is a awake and alert. She states she feels better. Her mother is with her. Her mother believes she looks and feels better. Objective Data Vital Signs: Vital Signs Temp Pulse Resp BP Pulse Ox O2 Del Method O2 Flow Rate 97.8 F 89 16 90/59 L 94 Room Air 2 04/03/22 15:36 04/03/22 15:36 04/03/22 15:36 04/03/22 15:36 04/03/22 15:36 04/03/22 15:36 04/03/22 10:57 Oxygen Flow Rate (L/min) 2 Oxygen Delivery Method Room Air Weight: 152 lb 8.958 oz Body Mass Index (BMI) 29.7 Intake & Output: Intake and Output for Last 24 Hours 04/01/22 04/02/22 04/03/22 23:59 23:59 23:59 Intake Total 1816.25 / 1816.25 1100 / 1100 400 / 400 Output Total 1600 / 1600 750 / 750 Balance 216.25 / 216.25 350 / 350 400 / 400 Lab / Micro Data Result Diagrams: 04/03/22 05:58 04/03/22 05:58 Labs: Laboratory Results - last 24 hr 04/02/22 17:58: POC Glucose 197 H 04/02/22 21:41: POC Glucose 316 H 04/03/22 01:49: POC Glucose 180 H 04/03/22 05:58: WBC 4.6, RBC 3.33 L, Hgb 11.6 L, Hct 34.3 L, MCV 103.0 H, MCH 34.8 H, MCHC 33.8, RDW Std Deviation 48.2 H, RDW Coeff of Lamine 13.0, Plt Count 226, MPV 11.1 04/03/22 05:58: Sodium 138, Potassium 3.5, Chloride 106, Carbon Dioxide 28.0, Anion Gap 4 L, BUN 14, Creatinine 0.72, Estim Creat Clear Calc 75.35, Est GFR (MDRD) Af Amer 115, Est GFR (MDRD) Non-Af 95, BUN/Creatinine Ratio 19.3, Glucose 132 H, Calcium 7.7 L, Phosphorus 1.9 L, Total Bilirubin 0.40, AST 67 H, ALT 49, Alkaline Phosphatase 117, Total Protein 5.5 L, Albumin 2.2 L, Globulin 3.3, Albumin/Globulin Ratio 0.7 L 04/03/22 06:24: POC Glucose 134 H 04/03/22 08:45: POC Glucose 158 H 04/03/22 12:44: POC Glucose 302 H Micro: Microbiology 03/28/22 18:18 Blood Culture (Wb) - Left Hand Blood Culture - Final No growth in 5 days. 03/28/22 19:25 Blood Culture (Wb) - Right Hand Blood Culture - Final No growth in 5 days. Cardiology Labs/Tests 04/03/22 05:58: WBC 4.6, RBC 3.33 L, Hgb 11.6 L, Hct 34.3 L, MCV 103.0 H, MCH 34.8 H, MCHC 33.8, Plt Count 226, MPV 11.1 04/03/22 05:58: Sodium 138, Potassium 3.5, Chloride 106, Carbon Dioxide 28.0, Anion Gap 4 L, BUN 14, Creatinine 0.72, Est GFR (MDRD) Af Amer 115, Est GFR (MDRD) Non-Af 95, BUN/Creatinine Ratio 19.3, Glucose 132 H, Calcium 7.7 L, Phosphorus 1.9 L, Total Bilirubin 0.40 Rhythm: Sinus rhythm Radiography Diagnostic Testing: Radiology Impression Echocardiogram 04/03/22 09:38 Interpretation Summary Limited views were obtained. Moderately dilated left ventricle. Severe segmental systolic dysfunction (see wall motion). The estimated ejection fraction is 15 %. Apical false tendon noted. Trivial mitral valve insufficiency. Trivial tricuspid valve insufficiency. Trivial pulmonic valve insufficiency. Unable to estimate RV systolic pressure due to insufficient tricuspid regurgitant envelope. Diastolic function is indeterminate. Echo lucency compatible with a pleural effusion. Ordering Physician: Noah Amaya Referring Physician: Kaylee Estrada Performed By: Jamaal Scales RCS Physical Exam Const alert and no apparent distress Orientation / Consciousness: awake HEENT normocephalic, head/scalp atraumatic and hearing grossly normal bilaterally Eyes PERRL, EOMs intact bilaterally, conjunctivae normal and no scleral icterus Neck supple and no JVD Resp normal respiratory effort and clear to auscultation bilaterally Cardio regular rate, regular rhythm, S1 normal heart sound and S2 normal heart sound Palpation: normal PMI Heart Sounds: murmur systolic I/ soft left sternal border GI normal to inspection, nondistended, normoactive bowel sounds Extremity no pedal edema Skin no rashes or lesions noted Assessment & Plan Assessment/Plan (1) Cardiomyopathy: PLAN: The patient appears to have objective findings compatible with an underlying cardiomyopathy. At the moment the etiology is uncertain although there does appear to be a concern that the patient may have an underlying viral illness which could lead to a viral related cardiomyopathy. She has undergone a repeat limited transthoracic echocardiogram to compare to earlier this week as to whether or not there is been any significant change/improvement in her overall LV wall motion and systolic function and LVEF. Her study appears to be similar to the study performed earlier this week as she continues to demonstrate severe left ventricular systolic dysfunction with an estimated LVEF of approximately 15%. There is been no history of underlying CAD or CAD evaluation. This diagnosis may be was less likely to be the sole etiology for her change in LV wall motion and systolic function and declining LVEF. If she does need to be considered for such then her noncardiovascular conditions have to be taken into consideration as well as to how to proceed for such a diagnosis with respect to noninvasive and/or invasive studies. As her blood pressure, although remaining somewhat low, appears to be somewhat more stable, she is now being started on medical therapy with carvedilol at 3.125 mg p.o. twice daily. If she tolerates this then the dose can be advanced as tolerated and she could be considered for additional agents such as afterload reducing agents such as Entresto again starting at a low dose of 24/26 mg p.o. twice daily. She may need other agents such as diuretics. She may also be a candidate for SGLT2 inhibitors. She is also pending transfer to [facility] for advanced heart failure evaluation and care. (2) Ventricular septal defect (VSD), membranous: PLAN: The patient was reported as having previous findings compatible with a membranous VSD. According to her mother she underwent evaluation of [facility]. Status post that evaluation she was not recommended for additional diagnostic studies/intervention. Those records are unavailable at this time for review. Her current echocardiogram does not comment on any findings compatible with an underlying VSD. (3) Viral illness: PLAN: Again the patient has been thought to have a potential underlying viral illness. She continues evaluation care per internal medicine and infectious disease. (4) Encephalopathy: PLAN: The patient presented with mental status changes. The etiology of her mental status condition is unclear at this time. Her overall mental status does appear to be improved. (5) HLD (hyperlipidemia): QUALIFIERS: Hyperlipidemia type: unspecified Qualified Code(s): E78.5 - Hyperlipidemia, unspecified PLAN: She carries a history of hyperlipidemia. She will continue evaluation care as deemed appropriate. 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 She will also continue evaluation care as deemed appropriate. 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 This does have to be taken into consideration with respect to her ongoing evaluation and care both cardiac and noncardiac. Addt'l Comments The patient's case has been discussed and reviewed at length with the patient's mother as well as Dr. Elizondo. At the present time the current plan is for continued medical therapy with initiation of an adjustment of medications for her cardiovascular condition as she tolerates. She is also pending transfer to [facility] for further advanced heart failure evaluation and care. This note was generated using a voice recognition system and there may be incorrect words, spelling or punctuation that were not noted when reviewing the office note prior to saving. Procedure Criteria Type of Procedure Procedure Type: Elective Elective Risks - COVID COVID Risk Discussion: The surgeon/proceduralist and patient have discussed in detail the risk of exposure to and/or potential harm posed by the COVID-19 virus with having a surgery/procedure at this time versus the risk of delaying the surgery/procedure. It is not possible to know either the risk of delaying the surgery or procedure or chance of getting an infection with perfect accuracy, but a joint decision was made between the patient and the surgeon/proceduralist to proceed at this time with the scheduled surgery/procedure as indicated on the consent form.
[2022-04-03 17:25] LABS: Bedside Glucose 135 mg/dL (74-106)
--- NOTE | 2022-04-03 18:40 | NURSING ---
Report called to [facility] at 1252. Pt being transferred with two peripheral IVs.
== END 2022-04-03 18:19 | disposition short-term general hospital (02) | DRG 865 ==
LOC: ED 22:17 → MS3 22:36 → PCU 03-31 12:42
PROVIDERS: Internal Medicine; Internal Medicine Infectious Disease; Admitting Provider Family Medicine; Emergency Provider Emergency Medicine; PCP Family Medicine; Visit Provider Internal Medicine
DX: B34.9 Viral infection, unspecified (principal); E43 Unspecified severe protein-calorie malnutrition; I50.21 Acute systolic (congestive) heart failure; G93.40 Encephalopathy, unspecified; I42.9 Cardiomyopathy, unspecified; E87.20 Acidosis, unspecified; Q21.0 Ventricular septal defect; E83.51 Hypocalcemia; E86.0 Dehydration; E10.9 Type 1 diabetes mellitus without complications; Z79.4 Long term (current) use of insulin; E78.5 Hyperlipidemia, unspecified; E06.3 Autoimmune thyroiditis; I08.1 Rheumatic disorders of both mitral and tricuspid valves; Q90.9 Down syndrome, unspecified; I49.3 Ventricular premature depolarization; Z20.822 Contact with and (suspected) exposure to COVID-19; Z79.899 Other long term (current) drug therapy; Z68.29 Body mass index [BMI] 29.0-29.9, adult; Z96.41 Presence of insulin pump (external) (internal)
CPT/HCPCS: 36415; 71045; 74176; 80048; 80053; 81001; 82330; 82533; 82947; 82962; 83605; 83735; 84100; 84145; 84443; 85025; 85027; 85610; 85730; 86618; 87040; 87086; 87428; 87449; 87493; 87506; 87633; 87635; 93005; 93306; 93308; 94640; 99251; 99285; J7030; A4216; G0463; J0610; J1940; J2405; U0003; U0005

== ENCOUNTER 2022-05-13 12:56 | Emergency (ER) | payer MEDICARE, MEDICAID, SELFPAY ==
[2022-05-13 12:57] VITALS: BP 74/54; PULSE 56; RESP 18; TEMP 36.2; O2SAT 99; BMI 26.2
[2022-05-13 13:15] VITALS: BP 84/63
[2022-05-13 13:25] LABS: Bedside Glucose 334 mg/dL (74-106)
--- NOTE | 2022-05-13 13:28 | ED.RN ---
Reports pump was not installed properly so they pulled it here. She reports she does have the supplies here to restart the pump and encouraged them to restart the pump.
--- NOTE | 2022-05-13 13:56 | EDS_ITS ---
HPI History of Present Illness Chief Complaint: Hypotension Informant: parent Onset/Context/Timing Onset: Today Associated Symptoms Associated Symptoms: Fatigue several days-1 week. Intermittent nosebleeds mostly right side. Narrative Narrative: Patient with trisomy 21 and cardiac abnormalities has stage IV congestive heart failure, had a cardiology visit today at [facility], where her blood pressure was 64 systolic. Yesterday, her blood sugars were high, she had polyuria with little p.o. intake and fatigue, mom was trying to force her to drink fluids but she did not do a very good job, they think they fixed her pod that she wears on her left arm for her glucose monitor and her sugars are better today. Mother states that the publicity consultant discharged her home and advised her to come to the nearest ER so they drove here from [place] and came to the ED for IV fluids as recommended per the publicity consultant. Mom states that her normal blood pressure is 80-90s syst olic, and right now she is 84/63 and mom is reassured by that. She is also had intermittent nosebleeds for the past 2 or 3 days mostly third of the right side but sometimes coming from both. They have dry heat in her house and mom has been running humidifier to try to help with that. [facility] Medical History (Updated 05/13/22 @ 15:[address] Nhan Castano MD) Abdominal wall abscess Atherosclerosis of coronary artery of platinum heart without angina pectoris Bowel obstruction Chronic HFrEF (heart failure with reduced ejection fraction) Diabetes HLD (hyperlipidemia) Hypoglycemia unawareness in type 1 diabetes mellitus Hypothyroidism Insulin pump titration Obesity Obesity Orthostatic hypotension Presence of insulin pump Presence of insulin pump Sinus bradycardia Trisomy 21 Type 1 diabetes Ventricular septal defect (VSD), membranous Home Medications ascorbate calcium (vitamin C) 500 mg tablet 500 mg PO DAILY supplement 12/24/20 [History Last Taken 01/11/22] cholecalciferol (vitamin D3) 125 mcg (5,000 unit) capsule 125 mcg PO DAILY supplement 12/24/20 [History Last Taken 01/11/22] cinnamon bark 500 mg capsule (Cinnamon) 500 mg PO DAILY supplement 12/24/20 [History Last Taken 01/11/22] insulin pump cartridge #5 ea 12/24/20 [History Last Taken Unknown] multivitamin (Daily Multi-Vitamin tablet) 1 tab PO DAILY supplement 12/24/20 [History Last Taken 01/11/22] multivitamin with minerals (Hair,Skin and Nails tablet) 1 tab PO DAILY supplement 12/24/20 [History Last Taken 01/11/22] blood-glucose meter,continuous (Dexcom G6 Director Quality Assurance mis) #1 ea 01/02/21 [Rx Last Taken Unknown] flash glucose sensor (FreeStyle [place] 2 Sensor kit) #2 ea 08/19/21 [Rx Last T aken Unknown] OneTouch Ultra Test (blood sugar diagnostic) #250 ea 08/20/21 [Rx Last Taken Unknown] OneTouch Ultra2 Meter (blood-glucose meter) #1 ea 08/20/21 [Rx Last Taken Unknown] glucagon 1 mg solution for injection 1 mg subcut ONCE low blood sugar 01/12/22 [History Last Taken Unknown] Humalog U-100 Insulin 100 unit/mL subcutaneous solution (insulin lispro) 100 unit subcut DAILY #30 mL 03/10/22 [Rx Last Taken Unknown] Omnipod 5 G6 Intro Kit (Gen 5) subcutaneous cartridge with controller (insulin pump cart,auto,BT-cntr) #1 ea 03/11/22 [Rx Last Taken Unknown] insulin pump cart,automated,BT (Omnipod 5 G6 Pods (Gen 5) subcutaneous cartridge) #30 ea 03/11/22 [Rx Last Taken Unknown] escitalopram oxalate 5 mg tablet (Lexapro) 5 mg depression 03/28/22 [History Last Taken Unknown] levothyroxine 50 mcg tablet 50 mcg PO DAILY hypothyroidism 03/28/22 [History Last Taken Unknown] ammonium lactate 12 % lotion 1 applic topical BID 05/04/22 [History Last Taken Unknown] aspirin 81 mg chewable tablet 81 mg PO DAILY 05/04/22 [History Last Taken Unknown] metoprolol succinate 25 mg tablet,extended release 24 hr 12.5 mg PO DAILY 05/04/22 [History Last Taken Unknown] ondansetron 4 mg disintegrating tablet 4 mg PO Q8H PRN 05/04/22 [History Last Taken Unknown] rosuvastatin 40 mg tablet 40 mg PO DAILY 05/04/22 [History Last Taken Unknown] spironolactone 25 mg tablet 12.5 mg PO DAILY 05/04/22 [History Last Taken Unknown] ticagrelor 90 mg tablet (Brilinta) 90 mg PO BID 05/04/22 [History Last Taken Unknown] torsemide 20 mg tablet 20 mg PO DAILY 05/04/22 [History Last Taken Unknown] Allergy/AdvReac Type Severity Reaction Status Date / Time vancomycin AdvReac Itching Verified 05/13/22 12:59 Family History Father Hypertension Surgical History (Updated 05/04/22 @ 10:06 by Lyla Torres) History of coronary artery stent placement (04/05/22) History of hysterectomy History of incision and drainage History of intestinal surgery Social History Smoking Status: Never smoker alcohol intake: never substance use type: does not use ROS ROS ED Review of Systems ROS Unobtainable: other Details: Limited ROS from patient, with each ROS system questions she looks at mother for answer EXAM Physical Exam Const Vital Signs: 05/13/22 12:57 05/13/22 13:15 05/13/22 13:20 Temperature 97.2 F L Temperature Source Temporal Pulse Rate 56 L Respiratory Rate 18 Respiratory Effort Normal Respiratory Pattern Normal Blood Pressure 74/54 L 84/63 L Blood Pressure Mean 60 70 Pulse Ox 99 Oxygen Delivery Method Room Air 05/13/22 14:00 05/13/22 14:36 Temperature Temperature Source Pulse Rate 52 L Respiratory Rate 17 Respiratory Effort Respiratory Pattern Blood Pressure 88/70 L Blood Pressure Mean 76 Pulse Ox 99 100 Oxygen Delivery Method Room Air Room Air Positive well nourished and well developed General Appearance ED: well developed and NAD HEENT Reports moist mucous membranes HEENT Narrative: No active nasal bleeding. Residual small amount of blood on both sides. A lesion at the septum on the right that is anterior and appears to have maybe been the source there is a clot there right now. normocephalic and atraumatic Eyes PERRL and EOMs intact bilaterally Neck full ROM, no lymphadenopathy, supple and no JVD Resp normal respiratory effort and clear to auscultation bilaterally Cardio regular rate, regular rhythm and no murmurs Rate: Negative for tachycardic GI normal to inspection, nondistended, normoactive bowel sounds, non-tender and non-distended Auscultation: normoactive bowel sounds Palpation: soft Back/Spine no CVA tenderness General Back: other FROM Extremity normal to inspection General Extremety ED: Negative for edema, pulses abnormal or tenderness General Extremity: Negative for edema or pulses abnormal Neuro CN's II-XII intact bilaterally and no sensory deficits noted Neuro Narrative: At baseline mental status per mother. Keenly alert. Cooperative. Sensorium / Orientation: awake and alert Motor Exam: strength 5/5 throughout Psych mental status grossly normal Skin no rashes or lesions noted and no wounds MDM MDM MDM Narrative Medical decision making narrative: I gave the patient 500 cc of IV normal saline while we were running labs. We checked her blood sugar it was in the 300s, it came downto 201 after fluids. Lab do show a mild BRANDYN. I suspect this is mostly due to dehydration given the history recently. On reevaluation, mom states that she is much more alert and feeling better and looks more like her normal self. Her blood pressure is 88/70 which is typical for her according to mother. I attempted to call Dr. Hoang, the publicity consultant at [facility] who they saw today, the mother said he was open to a phone consultation. I was attempted to put through to him however I received nothing but answering machine that I left a message on that the recording states will get back to me within 24-48 hours. Prior to discharge I did not hear back from them, mom is comfortable taking her home and calling them for follow-up, and she states the patient will drink sugar-free Gatorade at home which I think is reasonable for now. Lab Data Attestation: I reviewed the patient's lab results. Labs: Laboratory Results - last 24 hr 05/13/22 05/13/22 05/13/22 13:07 13:35 13:35 WBC 3.3 L RBC 4.46 Hgb 15.2 H Hct 44.5 MCV 99.8 H MCH 34.1 H MCHC 34.2 RDW Std Deviation 47.5 H RDW Coeff of Lamine 13.0 Plt Count 165 MPV 12.5 H Immature Gran % (Auto) 0.000 Neut % (Auto) 42.3 L Lymph % (Auto) 42.3 H [place] % (Auto) 11.2 H Eos % (Auto) 2.4 Baso % (Auto) 1.8 H Absolute Neuts (auto) 1.4 L Absolute Lymphs (auto) 1.40 Nucleated RBC % 0 Sodium 136 Potassium 4.7 Chloride 102 Carbon Dioxide 28.0 Anion Gap 6 BUN 23 H Creatinine 1.64 H Estim Creat Clear Calc 33.08 Est GFR (MDRD) Af Amer 45 L Est GFR (MDRD) Non-Af 37 L BUN/Creatinine Ratio 14.0 Glucose 284 H Calcium 8.8 POC Glucose 334 H 05/13/22 14:34 WBC RBC Hgb Hct MCV MCH MCHC RDW Std Deviation RDW Coeff of Lamine Plt Count MPV Immature Gran % (Auto) Neut % (Auto) Lymph % (Auto) [place] % (Auto) Eos % (Auto) Baso % (Auto) Absolute Neuts (auto) Absolute Lymphs (auto) Nucleated RBC % Sodium Potassium Chloride Carbon Dioxide Anion Gap BUN Creatinine Estim Creat Clear Calc Est GFR (MDRD) Af Amer Est GFR (MDRD) Non-Af BUN/Creatinine Ratio Glucose Calcium POC Glucose 201 H Discharge Plan Triage Chief Complaint: Hypotension ED Provider: Nhan Castano Dx/Rx/DC Orders Clinical Impression: Hyperglycemia due to diabetes mellitus, Chronic HFrEF (heart failure with reduced ejection fraction), Mild dehydration, BRANDYN (acute kidney injury), Transient hypotension Instructions: ED Dehydration (Adult) Prescriptions: No Action (DME) insulin pump cartridge Cartridge See Rx Instructions .ROUTE .MEDSUPPLY Qty: 5 Rx Instructions: As directed ascorbate calcium (vitamin C) 500 mg tablet 500 mg PO DAILY multivitamin [Daily Multi-Vitamin] Tablet 1 tab PO DAILY multivitamin with minerals [Hair,Skin and Nails] Tablet 1 tab PO DAILY cholecalciferol (vitamin D3) 125 mcg (5,000 unit) capsule 125 mcg PO DAILY cinnamon bark [Cinnamon] 500 mg capsule 500 mg PO DAILY (DME) blood-glucose meter [OneTouch Ultra2 Meter] Kit See Rx Instructions .ROUTE .MEDSUPPLY Qty: 1 0RF Rx Instructions: As directed (DME) OneTouch Ultra Test Strip See Rx Instructions .ROUTE .MEDSUPPLY Qty: 250 11RF Rx Instructions: test 8 times daily insulin lispro [Humalog U-100 Insulin] 100 unit/mL solution 100 unit subcut DAILY Qty: 30 5RF ammonium lactate 12 % lotion 1 applic topical BID aspirin 81 mg tablet,chewable 81 mg PO DAILY metoprolol succinate 25 mg tablet extended release 24 hr 12.5 mg PO DAILY ondansetron 4 mg tablet,disintegrating 4 mg PO Q8H PRN rosuvastatin 40 mg tablet 40 mg PO DAILY Brilinta 90 mg tablet 90 mg PO BID spironolactone 25 mg tablet 12.5 mg PO DAILY torsemide 20 mg tablet 20 mg PO DAILY glucagon 1 mg recon soln 1 mg subcut ONCE escitalopram oxalate [Lexapro] 5 mg tablet 5 mg levothyroxine 50 mcg tablet 50 mcg PO DAILY (DME) Dexcom G6 Director Quality Assurance Misc See Rx Instructions .ROUTE .MEDSUPPLY Qty: 1 0RF Rx Instructions: As directed (DME) FreeStyle [place] 2 Sensor Kit See Rx Instructions .ROUTE .MEDSUPPLY Qty: 2 6RF Rx Instructions: As directed (DME) Omnipod 5 G6 Pods (Gen 5) Cartridge See Rx Instructions .Route Qty: 30 1RF Rx Instructions: As directed (DME) Omnipod 5 G6 Intro Kit (Gen 5) Cartridge See Rx Instructions .Route Qty: 1 0RF Rx Instructions: As directed Primary Care Provider: Kaylee Estrada Referrals: Kaylee Estrada DO [Primary Care Provider] - 3-5 Days (and/or your publicity consultant) Disposition Disposition: Home, Self Care
[2022-05-13 14:00] VITALS: O2SAT 99
[2022-05-13] MEDS: Silver Nitrate (BKC) 1 EACH TOPICAL (14:02)
[2022-05-13 14:03] LABS: Absolute Neutrophil Count 1.4 X10^3/uL (2.0-7.7); Basophil# 0.06 X10^3/uL; Basophil% 1.8 % (0-1); Eosinophil# 0.08 X10^3/uL; Eosinophils% 2.4 % (0-5); Hematocrit 44.5 % (37-47); Hemoglobin 15.2 g/dL (12.0-15.0); Lymphocyte % 42.3 % (19-41); Mean Corp Hgb Conc 34.2 g/dL (32-36); Mean Corpuscular Hgb 34.1 pg (27.0-32.0); Mean Corpuscular Volume 99.8 fL (81-99); Mean Platelet Vol. 12.5 fl (6.2-12.0); Monocyte# 0.37 X10^3/uL; Monocyte% 11.2 % (0-10); NRBC Flagged by Analyzer 0 % (0-5); Neutrophil % 42.3 % (47-70); Platelet Count 165 K/mm3 (150-450); RBC Distribution Width SD 47.5 fl (35.1-43.9); Red Blood Count 4.46 M/mm3 (4.2-5.4); White Blood Count 3.3 K/mm3 (4.4-11.0)
[2022-05-13 14:19] LABS: Anion Gap 6 (5-15); BUN 23 mg/dL (7-18); Calcium,Total 8.8 mg/dL (8.5-10.1); Chloride 102 mmol/L (98-107); Creatinine, Serum 1.64 mg/dL (0.55-1.02); EST Glomerular Filtration Rate 37 mL/min (>60); Est Glom Filt Rate - Afr Amer 45 mL/min (>60); Estimated Creatinine Clearance 33.08 ml/min; Glucose 284 mg/dL (74-106); Potassium 4.7 mmol/L (3.5-5.1); Sodium Level 136 mmol/L (136-145)
[2022-05-13 14:36] VITALS: BP 88/70; PULSE 52; RESP 17; O2SAT 100
[2022-05-13 14:56] LABS: Bedside Glucose 201 mg/dL (74-106)
[2022-05-13 16:16] VITALS: PULSE 54; RESP 17; O2SAT 98
== END 2022-05-13 16:18 | disposition home or self-care (01) ==
PROVIDERS: Emergency Provider Emergency Medicine; PCP Family Medicine; Visit Provider Emergency Medicine
DX: E10.65 Type 1 diabetes mellitus with hyperglycemia (principal); N17.9 Acute kidney failure, unspecified; I50.22 Chronic systolic (congestive) heart failure; E86.0 Dehydration; I95.89 Other hypotension; I25.10 Atherosclerotic heart disease of native coronary artery without angina pectoris; Z95.5 Presence of coronary angioplasty implant and graft
CPT/HCPCS: 80048; 82962; 85025; 99283; J7040; A4216

== ENCOUNTER → 2022-08-04 | Outpatient (CLI) | payer MEDICARE, MEDICAID, SELFPAY ==
[2022-08-04 11:59] LABS: Microalbumin:Creatinine Ratio 50.2 mg/g CRE (<30 mg/g CRE)
[2022-08-04 12:16] LABS: Vitamin D,25 Hydroxy 54.2 ng/mL
[2022-08-04 12:23] LABS: ALB/GLOB Ratio 0.9 RATIO (0.9-2.4); AST(SGOT) 37 U/L (15-37); Alanine Aminotransfer ALT/SGPT 39 U/L (13-56); Albumin, Serum 2.9 g/dL (3.2-5.0); Alkaline Phosphatase 96 U/L (45-117); Anion Gap 4 (5-15); BUN 19 mg/dL (7-18); BUN/Creat Ratio 12.8 RATIO (10-20); Calcium,Total 8.4 mg/dL (8.5-10.1); Chloride 105 mmol/L (98-107); Cholesterol 81 mg/dL (200); Creatinine, Serum 1.48 mg/dL (0.55-1.02); EST Glomerular Filtration Rate 42 mL/min (>60); Est Glom Filt Rate - Afr Amer 50 mL/min (>60); Globulin 3.2 g/dL (2.2-4.2); Glucose 356 mg/dL (74-106); High Density Lipoprotein 40 mg/dL; Potassium 4.7 mmol/L (3.5-5.1); Protein, Total 6.1 g/dL (6.4-8.2); Sodium Level 137 mmol/L (136-145); T4 Free Direct 1.17 ng/dL (0.76-1.46); Thyroid Stim Hormone (TSH) 2.45 uIU/mL (0.358-3.74); Triglycerides 59 mg/dL; Very Low Density Lipoprotein 12 mg/dL (5-40)
== END | disposition home or self-care (01) ==
LOC: LAB 11:16
PROVIDERS: PCP Family Medicine; Visit Provider Nurse Practitioner Family
DX: E10.9 Type 1 diabetes mellitus without complications (principal); E78.5 Hyperlipidemia, unspecified; E03.9 Hypothyroidism, unspecified; E55.9 Vitamin D deficiency, unspecified
CPT/HCPCS: 36415; 80053; 80061; 82043; 82306; 82570; 84439; 84443

== ENCOUNTER 2023-01-24 11:04 | Emergency (ER) | payer MEDICARE, MEDICAID, SELFPAY ==
[2023-01-24 11:04] VITALS: BP 91/60; PULSE 64; RESP 16; TEMP 36.6; O2SAT 100; BMI 24.6
--- NOTE | 2023-01-24 11:30 | EX.ED.DYSGE1 ---
HPI <STEFFANY Lu - Last Filed: 01/24/23 11:55> History of Present Illness Chief Complaint: Lower Extremity Injury Narrative Narrative: Patient is a 42-year-old female with history of MRDD, CHF, diabetes who presents to the emergency department with left foot injury. Patient states that 2 days ago she rolled her foot injuring the outside of her foot. She is here with her mother. It is more swollen, slightly ecchymotic and they are here for an x-ray. Denies any other injury. Denies any ankle pain. Denies any heel pain PFSH <STEFFANY Lu - Last Filed: 01/24/23 11:55> [facility] Medical History Abdominal wall abscess Atherosclerosis of coronary artery of [place] heart without angina pectoris Bowel obstruction Chronic HFrEF (heart failure with reduced ejection fraction) Diabetes HLD (hyperlipidemia) Hypoglycemia unawareness in type 1 diabetes mellitus Hypothyroidism Insulin pump titration Obesity Obesity Orthostatic hypotension Presence of insulin pump Presence of insulin pump Presence of insulin pump Sinus bradycardia Trisomy 21 Type 1 diabetes Ventricular septal defect (VSD), membranous Home Medications ascorbate calcium (vitamin C) 500 mg tablet 500 mg PO DAILY supplement 12/24/20 [History Last Taken 01/11/22] cholecalciferol (vitamin D3) 125 mcg (5,000 unit) capsule 125 mcg PO DAILY supplement 12/24/20 [History Last Taken 01/11/22] cinnamon bark 500 mg capsule (Cinnamon) 500 mg PO DAILY supplement 12/24/20 [History Last Taken 01/11/22] insulin pump cartridge #5 ea 12/24/20 [History Last Taken Unknown] multivitamin (Daily Multi-Vitamin tablet) 1 tab PO DAILY supplement 12/24/20 [History Last Taken 01/11/22] blood-glucose meter,continuous (Dexcom G6 Casting And Curing Operator) #1 ea 01/02/21 [Rx Last Taken Unknown] OneTouch Ultra2 Meter (blood-glucose meter) #1 ea 08/20/21 [Rx Last Taken Unknown] glucagon 1 mg solution for injection 1 mg subcut ONCE low blood sugar 01/12/22 [History Last Taken Unknown] Omnipod 5 G6 Intro Kit (Gen 5) subcutaneous cartridge with controller (insulin pump cart,auto,BT-cntr) #1 ea 03/11/22 [Rx Last Taken Unknown] levothyroxine 50 mcg tablet 50 mcg PO DAILY hypothyroidism 03/28/22 [History Last Taken Unknown] aspirin 81 mg chewable tablet 81 mg PO DAILY 05/04/22 [History Last Taken Unknown] rosuvastatin 40 mg tablet 40 mg PO DAILY 05/04/22 [History Last Taken Unknown] ticagrelor 90 mg tablet (Brilinta) 90 mg PO BID 05/04/22 [History Last Taken Unknown] insulin syr/ndl U100 half shayna 0.3 mL 31 gauge x 5/16 (BD Insulin Syringe Ultra-Fine (half unit)) #100 ea 05/15/22 [Rx Last Taken Unknown] Humalog U-100 Insulin 100 unit/mL subcutaneous solution (insulin lispro) 100 unit subcut DAILY #30 mL 07/27/22 [Rx Last Taken Unknown] OneTouch Ultra Test (blood sugar diagnostic) #300 ea 10/21/22 [Rx Last Taken Unknown] insulin pump cart,automated,BT (Omnipod 5 G6 Pods (Gen 5) subcutaneous cartridge) #30 ea 10/29/22 [Rx Last Taken Unknown] blood-glucose sensor (FreeStyle [place] 3 Sensor device) #2 ea 11/10/22 [Rx Last Taken Unknown] Allergy/AdvReac Type Severity Reaction Status Date / Time vancomycin AdvReac Itching Verified 01/24/23 11:06 Family History Father Hypertension Surgical History History of coronary artery stent placement (04/05/22) History of hysterectomy History of incision and drainage History of intestinal surgery Social History Smoking Status: Never smoker alcohol intake: never substance use type: does not use ROS <STEFFANY Lu - Last Filed: 01/24/23 11:55> ROS ED ROS Narrative Muscle skeletal: Negative for any muscle joint pain, stiffness, myalgias, arthralgias, neck pain, back pain. Patient has edema to the left foot. Patient has most of the pain to the third fourth and fifth metatarsals. There is no neurological focal deficit. Patient has worsening pain with ambulation. Neurological: Negative for any headache, syncope, numbness or tingling, dizziness Skin: Negative for any rashes, lumps, itching, abrasions, lacerations Psychiatric: Negative for any depression, anxiety, stress, suicidal ideation, homicidal ideation Hematologic: Negative for any easy bruising, excessive bruising, easy bleeding Allergies: Negative for any eczema, hives, rash EXAM <STEFFANY Lu - Last Filed: 01/24/23 11:55> Physical Exam Const Vital Signs: 01/24/23 11:04 Temperature 98 F Temperature Source Temporal Pulse Rate 64 Respiratory Rate 16 Blood Pressure 91/60 Blood Pressure Mean 70 Pulse Ox 100 Oxygen Delivery Method Room Air <Dr. Devin Freeman MD - Last Filed: 01/24/23 15:09> Physical Exam Const Vital Signs: 01/24/23 11:04 Temperature 98 F Temperature Source Temporal Pulse Rate 64 Respiratory Rate 16 Blood Pressure 91/60 Blood Pressure Mean 70 Pulse Ox 100 Oxygen Delivery Method Room Air MDM <STEFFANY Lu - Last Filed: 01/24/23 11:55> MDM Radiography Diagnostic Testing: Clinical Impression(s) from Imaging Studies Foot X-Ray 01/24/23 11:40 IMPRESSION: 1. Acute pseudo-Myers fracture. 2. Acute impacted fracture of the base of the fifth proximal phalanx. Electronically Signed: Gary Bro MD at 12:31 EDT , ADDENDUM: 01/24/23 1247 IMPRESSION: undefined Treatment and Re-Evaluation :: Patient appears generally well, patient appears nontoxic vital signs are stable. Presenting to the emergency department for left foot pain after an injury. There is a concern for metatarsal fracture. Patient received a 3 view x-ray of the left foot this will be interpreted by the ER physician as well as the radiologist. Patient has an avulsion fracture of the base of the fifth metatarsal. There is no displacement. Patient placed in a short walking boot. Patient will follow-up closely with podiatry. Patient will continue take ibuprofen, Tylenol at home. I spoke with the mother as well as the patient. All questions were answered. Return precautions given. <Dr. Devin Freeman MD - Last Filed: 01/24/23 15:09> MDM MDM Narrative Medical decision making narrative: I have personally performed a face to face assessment of the patient and have reviewed the RADHA Note. I performed a substantive portion of the visit including all aspects of the following. My amor findings include: History: Patient presents with left foot pain. She rolled this wearing a sandal couple days ago and it just keeps hurting. She states the only spot it hurts is on the lateral aspect of her left foot. She states nothing else hurts. Exam: Patient awake alert appropriate. Very pleasant patient. She has no tenderness on the leg and knee tib-fib ankle calcaneus. Her Achilles is intact to palpation and Partida test. She does have some tenderness in the mid and forefoot mostly on the lateral aspect of the left. No visible bruising. Medical Decision Making: My independent interpretation the patient's three-view x-ray of her left foot shows fifth metatarsal avulsion type fracture. This is not a true Myers. Final reading is pending. I discussed with the mom and patient ongoing care expected outcome follow-up and repeat imaging to make sure there has not been change in position. Radiography Diagnostic Testing: Clinical Impression(s) from Imaging Studies Foot X-Ray 01/24/23 11:40 IMPRESSION: 1. Acute pseudo-Myers fracture. 2. Acute impacted fracture of the base of the fifth proximal phalanx. Electronically Signed: Gary Bro MD at 12:31 EDT , ADDENDUM: 01/24/23 1247 IMPRESSION: undefined Discharge Plan Triage Chief Complaint: Lower Extremity Injury ED Midlevel Provider: Warren Rossi ED Provider: Devin Freeman Dx/Rx/DC Orders Clinical Impression: Foot fracture Instructions: ED Fracture, Foot Prescriptions: No Action (DME) insulin pump cartridge Cartridge See Rx Instructions .ROUTE .MEDSUPPLY Qty: 5 Rx Instructions: As directed ascorbate calcium (vitamin C) 500 mg tablet 500 mg PO DAILY multivitamin [Daily Multi-Vitamin] Tablet 1 tab PO DAILY cholecalciferol (vitamin D3) 125 mcg (5,000 unit) capsule 125 mcg PO DAILY cinnamon bark [Cinnamon] 500 mg capsule 500 mg PO DAILY (DME) blood-glucose meter [OneTouch Ultra2 Meter] Kit See Rx Instructions .ROUTE .MEDSUPPLY Qty: 1 0RF Rx Instructions: As directed aspirin 81 mg tablet,chewable 81 mg PO DAILY rosuvastatin 40 mg tablet 40 mg PO DAILY Brilinta 90 mg tablet 90 mg PO BID insulin lispro [Humalog U-100 Insulin] 100 unit/mL solution 100 unit subcut DAILY Qty: 30 5RF glucagon 1 mg recon soln 1 mg subcut ONCE levothyroxine 50 mcg tablet 50 mcg PO DAILY (DME) Dexcom G6 Casting And Curing Operator Misc See Rx Instructions .ROUTE .MEDSUPPLY Qty: 1 0RF Rx Instructions: As directed (DME) Omnipod 5 G6 Intro Kit (Gen 5) Cartridge See Rx Instructions .Route Qty: 1 0RF Rx Instructions: As directed (DME) BD Insulin Syringe (half unit) 0.3 mL 31 gauge x 5/16 syringe See Rx Instructions .Route Qty: 100 6RF Rx Instructions: As directed (DME) OneTouch Ultra Test Strip See Rx Instructions .ROUTE .MEDSUPPLY Qty: 300 5RF Rx Instructions: test 12 times daily (DME) Omnipod 5 G6 Pods (Gen 5) Cartridge See Rx Instructions .Route Qty: 30 1RF Rx Instructions: 1 pod q 3 days (DME) FreeStyle [place] 3 Sensor Device See Rx Instructions .Route Qty: 2 4RF Rx Instructions: As directed Primary Care Provider: Kaylee Estrada Referrals: Jaison Murphy DPM [Med Staff - Active Staff] - Kaylee Estrada DO [Primary Care Provider] - Activity Restrictions/Additional Instructions: Please follow-up with podiatry. Ensure that you ice and elevate. Please return for any worsening symptoms. Disposition Disposition: Home, Self Care Discharge Date/Time: 01/24/23 12:34
--- NOTE | 2023-01-24 11:40 | RAD_ITS ---
STUDY: X-RAY - LEFT FOOT CLINICAL: Female, 42 years old. injury TECHNIQUE: 3 view(s) of the foot. COMPARISON: None. FINDINGS: Normal talus, calcaneus, and tarsal bones. Normal visualized subtalar, talonavicular, calcaneocuboid, tarsal and tarsometatarsal articulations. Acute nondisplaced oblique fracture of the base of the fifth metatarsal bone (pseudo-Myers fracture) Normal metatarsophalangeal joint of the great toe. Normal tibial and fibular sesamoid bones. Normal interphalangeal joint of the great toe. Normal phalanges of the great toe. Normal second through fifth metatarsophalangeal joints. Acute impacted transverse fracture of the base of the fifth proximal phalanx. The soft tissue structures are unremarkable. RAD/Foot min 3 Views IMPRESSION: 1. Acute pseudo-Myers fracture. 2. Acute impacted fracture of the base of the fifth proximal phalanx. Electronically Signed: Gary Bro MD at 12:31 EDT ,
== END 2023-01-24 12:34 | disposition home or self-care (01) ==
PROVIDERS: Emergency Provider Emergency Medicine; PCP Family Medicine; Visit Provider Emergency Medicine
DX: S92.352A Displaced fracture of fifth metatarsal bone, left foot, initial encounter for closed fracture (principal); I50.22 Chronic systolic (congestive) heart failure; E10.9 Type 1 diabetes mellitus without complications; I25.10 Atherosclerotic heart disease of native coronary artery without angina pectoris; E78.5 Hyperlipidemia, unspecified; Z96.41 Presence of insulin pump (external) (internal); E66.9 Obesity, unspecified; Z79.899 Other long term (current) drug therapy; E03.9 Hypothyroidism, unspecified; Z79.82 Long term (current) use of aspirin; Z95.5 Presence of coronary angioplasty implant and graft; Z90.710 Acquired absence of both cervix and uterus; X58.XXXA Exposure to other specified factors, initial encounter
CPT/HCPCS: 73630; 99283

== ENCOUNTER 2024-03-11 14:57 | Emergency (ER) | payer MEDICARE, SELFPAY ==
[2024-03-11 14:58] VITALS: BP 120/100; PULSE 73; RESP 18; TEMP 35.7; O2SAT 95; BMI 29.2
--- NOTE | 2024-03-11 15:03 | ED.VIS.FALL ---
HPI HPI - Fall History of Present Illness Chief Complaint: Fall PFSH PFS Medical History Abdominal wall abscess Atherosclerosis of coronary artery of [place] heart without angina pectoris Bowel obstruction Chronic HFrEF (heart failure with reduced ejection fraction) Diabetes HLD (hyperlipidemia) Hypoglycemia unawareness in type 1 diabetes mellitus Hypothyroidism Insulin pump titration Obesity Obesity Orthostatic hypotension Presence of insulin pump Presence of insulin pump Presence of insulin pump Sinus bradycardia Trigger finger, left middle finger Trisomy 21 Type 1 diabetes Ventricular septal defect (VSD), membranous Home Medications ?Medication ?Instructions ?Recorded ?Last Taken ?Type ascorbate calcium (vitamin C) 500 500 mg PO DAILY supplement 12/24/20 01/11/22 History mg tablet cholecalciferol (vitamin D3) 125 125 mcg PO DAILY supplement 12/24/20 01/11/22 History mcg (5,000 unit) capsule cinnamon bark 500 mg capsule 500 mg PO DAILY supplement 12/24/20 01/11/22 History (Cinnamon) insulin pump cartridge #5 ea 12/24/20 Unknown History multivitamin (Daily Multi-Vitamin 1 tab PO DAILY supplement 12/24/20 01/11/22 History tablet) blood-glucose meter,continuous #1 ea 01/02/21 Unknown Rx (Dexcom G6 Horse Rancher) OneTouch Ultra2 Meter #1 ea 08/20/21 Unknown Rx (blood-glucose meter) glucagon 1 mg solution for 1 mg subcut ONCE low blood sugar 01/12/22 Unknown History injection Omnipod 5 G6 Intro Kit (Gen 5) #1 ea 03/11/22 Unknown Rx subcutaneous cartridge with controller (insulin pump cart,auto,BT-cntr) levothyroxine 50 mcg tablet 50 mcg PO DAILY hypothyroidism 03/28/22 Unknown History aspirin 81 mg chewable tablet 81 mg PO DAILY 05/04/22 Unknown History rosuvastatin 40 mg tablet 40 mg PO DAILY 05/04/22 Unknown History ticagrelor 90 mg tablet (Brilinta) 90 mg PO BID 05/04/22 Unknown History insulin syr/ndl U100 half shayna 0.3 #100 ea 05/15/22 Unknown Rx mL 31 gauge x 5/16 (BD Insulin Syringe Ultra-Fine (half unit)) blood-glucose sensor (FreeStyle #2 ea 11/10/22 Unknown Rx [place] 3 Sensor device) lancets 33 gauge (Unilet Lancet) #100 ea 07/23/23 Unknown Rx blood sugar diagnostic (OneTouch #50 ea 12/20/23 Unknown Rx Verio test strips) Fiasp U-100 Insulin 100 unit/mL 100 unit subcut DAILY #90 mL 01/03/24 Unknown Rx subcutaneous solution (insulin aspart (niacinamide)) insulin pump cart,automated,BT #30 ea 01/03/24 Unknown Rx (Omnipod 5 G6 Pods (Gen 5) subcutaneous cartridge) Allergy/AdvReac Type Severity Reaction Status Date / Time vancomycin AdvReac Itching Verified 06/29/23 10:10 Family History Father Hypertension Surgical History History of coronary artery stent placement (04/05/22) History of hysterectomy History of incision and drainage History of intestinal surgery Social History Smoking Status: Never smoker alcohol intake: never substance use type: does not use EXAM Physical Exam Const Vital Signs: 03/11/24 14:58 Temperature 98 F Temperature Source Axillary Pulse Rate 73 Respiratory Rate 18 Blood Pressure 120/100 H Blood Pressure Mean 106 Pulse Ox 95 Oxygen Delivery Method Room Air Discharge Plan Triage Chief Complaint: Fall Other Complaint: Abd Pain Seizure ED Provider: Noah Gonsales Dx/Rx/DC Orders Prescriptions: No Action (DME) insulin pump cartridge Cartridge See Rx Instructions .ROUTE .MEDSUPPLY Qty: 5 Rx Instructions: As directed ascorbate calcium (vitamin C) 500 mg tablet 500 mg PO DAILY multivitamin [Daily Multi-Vitamin] Tablet 1 tab PO DAILY cholecalciferol (vitamin D3) 125 mcg (5,000 unit) capsule 125 mcg PO DAILY cinnamon bark [Cinnamon] 500 mg capsule 500 mg PO DAILY (DME) blood-glucose meter [OneTouch Ultra2 Meter] Kit See Rx Instructions .ROUTE .MEDSUPPLY Qty: 1 0RF Rx Instructions: As directed aspirin 81 mg tablet,chewable 81 mg PO DAILY rosuvastatin 40 mg tablet 40 mg PO DAILY Brilinta 90 mg tablet 90 mg PO BID glucagon 1 mg recon soln 1 mg subcut ONCE levothyroxine 50 mcg tablet 50 mcg PO DAILY (DME) Dexcom G6 Horse Rancher Misc See Rx Instructions .ROUTE .MEDSUPPLY Qty: 1 0RF Rx Instructions: As directed (DME) Omnipod 5 G6 Intro Kit (Gen 5) Cartridge See Rx Instructions .Route Qty: 1 0RF Rx Instructions: As directed (DME) BD Insulin Syringe (half unit) 0.3 mL 31 gauge x 5/16 syringe See Rx Instructions .Route Qty: 100 6RF Rx Instructions: As directed (DME) FreeStyle [place] 3 Sensor Device See Rx Instructions .Route Qty: 2 4RF Rx Instructions: As directed (DME) lancets [Unilet Lancet] 33 gauge misc See Rx Instructions .Route Qty: 100 8RF Rx Instructions: tid (DME) OneTouch Verio test strips Strip See Rx Instructions .Route Qty: 50 8RF Rx Instructions: test daily and prn for cgm failure Fiasp U-100 Insulin 100 unit/mL solution 100 unit subcut DAILY Qty: 90 0RF Rx Instructions: via insulin pump (DME) Omnipod 5 G6 Pods (Gen 5) Cartridge See Rx Instructions .Route Qty: 30 0RF Rx Instructions: 1 pod q 3 days Primary Care Provider: Kaylee Estrada Referrals: Kaylee Estrada DO [Primary Care Provider] - Print Language: Maltese
--- NOTE | 2024-03-11 15:21 | CT_ITS ---
STUDY: CT ABDOMEN AND PELVIS WITH CONTRAST REASON FOR EXAM: Female, 43 years old. Abdominal pain RADIATION DOSAGE (If Supplied By Facility): CTDIvol = ( 14.87 ) mGy, DLP = ( 675.37 ) mGycm TECHNIQUE: Transaxial images were obtained from the dome of the diaphragm to the symphysis pubis without oral contrast. IV 100mL Isovue-[id number] was administered. Sagittal and coronal images were reconstructed. Individualized dose optimization techniques were used for this CT. COMPARISON: March 28, 2022. FINDINGS: The visualized lung bases are unremarkable. The visualized portions of the heart are within normal limits. Normal liver. Normal gallbladder and extrahepatic biliary system. Normal spleen. Normal pancreas. Normal bilateral adrenal glands. Normal right kidney. Normal left kidney. Prominent air fluid level in the stomach. Normal small intestine. Normal colon. The appendix is not visualized. Normal abdominal aorta. Normal inferior vena cava. Normal retroperitoneum. Normal urinary bladder. 1.3 cm hyperdense nodule at the right side of the probable vaginal cuff, similar to previous study. Nonvisualization of the uterus 1.4 cm right ovarian cystic nodule. Normal abdominal wall. Normal osseous structures. CT/Abdomen/Pelvis W IV Cont ONLY IMPRESSION: Prominent air fluid level in the stomach. Stable hyperdense nodule at the right vaginal cuff. Small right ovarian cystic nodule. Electronically Signed: Osmany Hines DO at 17:05 EDT ,
--- OUTSIDE RECORDS SUMMARY | 2024-03-11 15:22 | XMS RPT_ITS | CCD ---
Author Organization [facility] Care Team Providers Care Package Sealer Machine Name Role Phone Andrez [place] Unavailable BALJIT ARCEO Attending Unavailable BALJIT ARCEO Attending Unavailable Malisabel DOKaylee Primary Care Provider [phone] Jonah Hemphill MD Unavailable Rothman, Dwayne Unavailable Rothman DPM, Dwayne M Unavailable Kaylee Estrada DO Primary Care Provider [phone] Jonah Hemphill MD Unavailable Rothman DPM, Dwayne M Unavailable Rothman DPM, Dwayne M Unavailable DIANE FRAGA Referring Unavailable MALYS, KAYLEE Primary Care Unavailable GABRIELA ZHAO Attending Unavailable MALYS, KAYLEE Primary Care Unavailable MAXWELL, VAIIBHAV N Referring Unavailable MALYS, KAYLEE Referring Unavailable TAMMY SOLARES Attending Unavailable MALYS, KAYLEE Primary Care Unavailable MALYS, KAYLEE Referring Unavailable TAMMY SOLARES Attending Unavailable MALYS, KAYLEE Primary Care Unavailable MALYS, KAYLEE Referring Unavailable MAXWELL, VAIIBHAV N Attending Unavailable MALYS, KAYLEE Primary Care Unavailable MALYS, KAYLEE Primary Care Unavailable MAXWELL, VAIIBHAV N Attending Unavailable MALYS, KAYLEE Referring Unavailable MALYS, KAYLEE Primary Care Unavailable MAXWELL, VAIIBHAV N Referring Unavailable Medications Current Medications Medication Drug Class(es) Dates Sig (Normalized) Sig (Original) aspirin 81 mg chewable tablet (17 sources) Platelet Aggregation Inhibitor, Nonsteroidal Anti-inflammatory Drug Start: 12-27-2023 take 1 tablet by mouth once daily aspirin 81 MG Chew Tab chewable tablet Chew and swallow 1 tablet by mouth daily. 90 tablet 3 12/27/2023 Active Start: 03-22-2023 take 1 tablet by himanshu th once daily aspirin 81 MG Chew Tab chewable tablet Chew and swallow 1 tablet by mouth daily. 90 tablet 3 03/22/2023 Active Start: 04-04-2022 End: 06-08-2022 take 1 tablet by mouth once daily aspirin 81 MG Chew Tab chewable tablet Chew and swallow 1 tablet by mouth daily. 90 tablet 3 06/08/2022 Active Continuous Glucose Charger Operator (Dexcom G6 Charger Operator) Device (3 sources) Continuous Gluco se Charger Operator (Dexcom G6 Charger Operator) Device Dexcom G6 Charger Operator Active Continuous Glucose Sensor (Dexcom G6 Sensor) Misc (2 sources) Start: 4 Continuous Glucose Sensor (Dexcom G6 Sensor) Misc Indications: Type 1 diabetes mellitus with hyperglycemia Inject 1 Each under the skin every 10 days. Dx E10.65; E10.649 9 Each 3 01/13/2024 Active Continuous Glucose Transmitter (Dexcom G6 Transmitter) Misc (2 sources) Start: 4 Continuous Glucose Transmitter (Dexcom G6 Transmitter) Misc Indications: Type 1 diabetes mellitus with hyperglycemia 1 Each by Instructed route every 90 Days. Dx E10.65; E10.649 1 Each 3 01/13/2024 Active escitalopram 5 mg oral tablet (17 sources) Serotonin Reuptake Inhibitor Start: 2 End: 2 take 5 mg by mouth once daily 5 mg, Oral, DAILY, First dose on 04/04/22 at 0900, Until Discontinued Start: 03-16-2022 End: 04-09-2022 take 1 tablet by mouth once daily escitalopram 5 MG tablet Take 1 tablet by mouth daily. 30 tablet 1 04/09/2022 Active glucagon 3 mg nasal powder (16 sources) Antihypoglycemic Agent Start: 04-12-2022 End: 01-13-2024 Glucagon (Baqsimi Two Pack) 3 MG/DOSE Powder 3 mg by Nasal route As directed as needed. 3 mg (one actuation) into a single nostril for symptomatic low blood sugar; if no response, may repeat in 15 minutes using a new intranasal device. Dx. E10.65, E10.649 2 Each 1 01/13/2024 Active Start: 04-09-2022 Glucagon (Baqs imi Two Pack) 3 MG/DOSE Powder 3 mg by Nasal route As directed as needed. 3 mg (one actuation) into a single nostril for symptomatic low blood sugar; if no response, may repeat in 15 minutes using a new intranasal device. 2 Each 1 04/09/2022 Active insulin aspart, human 100 unt/ml injectable solution (4 sources) Insulin Analog Start: 01-13-2024 Insulin Aspart (NovoLOG) 100 UNIT/ML injection as directed up to 100 units/day per insulin pump DxE10.65 90 mL 2 01/13/2024 Active Start: 01-13-2024 insulin aspart 100 UNIT/ML Solution Pen-injector injection As directed with meals and snacks up to 50 units daily DxE10.65 please hold for patient to request 15 mL 6 01/13/2024 Active Insulin Dispos Bottom Crane Operator Accessori es (Omnipod Pod Pals) Misc (5 sources) Insulin Disposable Pump (Omnipod 5 G6 Pods, Gen 5,) Misc (2 sources) Start: 01-13-2024 Insulin Disposable Pump (Omnipod 5 G6 Pods, Gen 5,) Misc 1 Each by Instructed route Every 2 days. Dx. E10.65, E10.649 45 Each 3 01/13/2024 Active 3 ml insulin glargine 100 unt/ml pen injector (2 sources) Insulin Analog Start: 01-13-2024 insulin glargine (Lantus SoloStar) 100 UNIT/ML Solution Pen-injector injection As directed up to 50 units daily in the event of pump failure DxE10.65 please hold for patient to request 15 mL 6 01/13/2024 Active levothyroxine sodium 0.05 mg oral tablet (18 sources) l-Thyroxine Start: 04-04-2022 End: 01-13-2024 take 1 tablet by mouth once daily before breakfast Levothyroxine 50 MCG tablet Take 1 tablet by mouth every morning before breakfast. Dx E06.3 90 tablet 3 01/13/2024 Active ondansetron 4 mg disintegrating oral tablet (18 sources) Serotonin-3 Receptor Antagonist Start: 01-13-2024 take 1 tablet by mouth every eight hours as needed Ondansetron 4 MG Tab Dispersible tablet Take 1 tablet by mouth every 8 hours as needed. For nausea associated with signs/symptoms of DKA DxE10.65 90 tablet 3 01/13/2024 Active Start: 01-11-2022 End: 04-09-2022 take 1 tablet by mouth every eight hours as needed Ondansetron 4 MG Tab Dispersible tablet Take 1 tablet by mouth every 8 hours as needed. For nausea associated with signs/symptoms of DKA DxE10.65 90 tablet 3 01/13/2024 Active rosuvastatin calcium 40 mg oral tablet (17 sources) HMG-CoA Reductase Inhibitor Start: 01-03-2024 take 1 tablet by mouth once daily Rosuvastatin 40 MG tablet Take 1 tablet by mouth daily. 90 tablet 01/03/2024 Active Start: 06-28-2023 take 1 tablet by himanshu th once daily at dinner Rosuvastatin 40 MG tablet Take 1 tablet by mouth daily with dinner. 90 tablet 3 06/28/2023 Active Start: 04-05-2022 End: 06-08-2022 take 1 tablet by mouth once daily at dinner Rosuvastatin 40 MG tablet Take 1 tablet by mouth daily with dinner. 90 tablet 3 06/08/2022 Active Completed/Discontinued Medications Medication Drug Class(es) Dates Sig (Normalized) Sig (Original) acetaminophen 325 mg oral tablet (2 sources) Start: 04-04-2022 End: 04-04-2022 acetaminophen (TYLENOL) tablet Start: 04-04-2022 End: 04-09-2022 take 1 tablet by mouth every six hours as needed acetaminophen (TYLENOL) tablet 650 mg aluminum hydroxide 40 mg/ml / magnesium hydroxide 40 mg/ml / simethicone 4 mg/ml oral suspension (1 source) Start: 04-03-2022 End: 04-09-2022 take 30 mL by mouth every six hours as needed 30 mL, Oral, EVERY 6 HOURS NEEDED, Starting on 04/03/22 at 2054, Until Ashley 04/09/22 at 1851, Indigestion Per 5 mL is equivalent to: (Alum-Mag Hydroxide 200-225 mg and Simethicone 20 mg) and (Alum-Mag Hydroxide 200-200 mg and Simethicone 20 mg) benzocaine 15 mg / menthol 3.6 mg oral lozenge (1 source) Standardized Chemical Allergen Start: 04-03-2022 End: 04-09-2022 1 lozenge, Oral, EVERY 2 HOURS NEEDED, Starting on Wed04/03/22 at 2054, Until Ashley 04/09/22 at 1851, Sore Throat Max 8 lozenges/day&nbsp ;Patient may self-administer. calamine 80 mg/ml / zinc oxide 80 mg/ml topical lotion (1 source) Start: 04-04-2022 End: 04-09-2022 Calamine-Zinc Oxide 8-8 % lotion 1 Application clotrimazole 10 mg/ml topical cream (1 source) Azole Antifungal Start: 04-04-2022 End: 04-05-2022 clotrimazole (LOTRIMIN) 1 % cream 1 Application dextromethorphan hydrobromide 2 mg/ml / guaiFENesin 20 mg/ml oral suspension (1 source) Uncompetitive M-vhzqke-C-aspartat e Receptor Antagonist, Sigma-1 Agonist Start: 04-08-2022 End: 04-09-2022 take 10 mL by mouth every four hours as needed guaiFENesin-dextr omethorphan (ROBITUSSIN DM) 100-10 MG/5ML syrup 10 mL Enoxaparin Sodium (LOVENOX) injection 40 mg (1 source) Start: 04-04-2022 End: 04-09-2022 Enoxaparin Sodium (LOVENOX) injection 40 mg ETANERCEPT SOLN (2 sources) Tumor Necrosis Factor Vanessa Start: 08-25-2013 ENBREL SOSY as directed ETANERCEPT SOLN [id number] Andrez Hill 4 ml furosemide 10 mg/ml injection (2 sources) Loop Diuretic Start: 04-06-2022 End: 04-07-2022 furOSEmide (LASIX) injection 100 mg Start: 04-04-2022 End: 04-06-2022 furOSEmide (LASIX) injection 80 mg Gadobutrol (GADAVIST) 1 MMOL/ML injection 1-30 mL (1 source) Start: 04-07-2022 End: 04-07-2022 Gadobutrol (GADAVIST) 1 MMOL/ML injection 1-30 mL insulin glargine injection 10 Units (1 source) Start: 04-08-2022 End: 04-08-2022 inject 10 [IU] by subcutaneous injection every twenty-four hours insulin glargine injection 10 Units insulin glargine injection 9 Units (1 source) Start: 04-09-2022 End: 04-09-2022 inject 9 [IU] by subcutaneous injection every twenty-four hours insulin glargine injection 9 Units INSULIN LISPRO (HUMAN) SOLN (2 sources) Insulin Analogue Start: 08-25-2013 HUMALOG SOLN as directed INSULIN LISPRO (HUMAN) SOLN [id number] Andrez Bolanos Sergio insulin lispro (HumaLOG) injection (3 sources) Start: 04-07-2022 End: 04-09-2022 insulin lispro (HumaLOG) injection Start: 04-05-2022 End: 04-07-2022 insulin lispro (HumaLOG) inj ection Start: 04-04-2022 End: 04-05-2022 insulin lispro (HumaLOG) inj ection iron dextran (INFED) 1,000 mg in sodium chloride 0.9%, with overfill 570 mL (total volume) IVPB (1 source) Start: 04-09-2022 End: 04-09-2022 iron dextran (INFED) 1,000 mg in sodium chloride 0.9%, with overfill 570 mL (total volume) IVPB iron dextran (INFED) 25 mg in sodium chloride 0.9%, with overfill 60.5 mL (total volume) IVPB (1 source) Start: 04-09-2022 End: 04-09-2022 iron dextran (INFED) 25 mg in sodium chloride 0.9%, with overfill 60.5 mL (total volume) IVPB ammonium lactate 120 mg/ml topical lotion (16 sources) Start: 04-04-2022 End: 04-09-2022 1 Application, Topical, 2 TIMES DAILY, First dose on 04/04/22 at 0900, Until Discontinued losartan potassium 25 mg oral tablet (2 sources) Angiotensin 2 Receptor Vanessa Start: 04-05-2022 End: 04-09-2022 losartan (COZAAR) tablet 25 mg Start: 04-04-2022 End: 04-04-2022 losartan (COZAAR) tablet 12. 5 mg lovastatin (2 sources) HMG-CoA Reductase Inhibitor Start: 08-25-2013 LOVASTATIN TABS as directed LOVASTATIN TABS [id number] Andrez Hill magnesium oxide 400 mg oral tablet (1 source) Start: 04-04-2022 End: 04-09-2022 magnesium oxide (MAG-OX) tablet 800 mg 50 ml magnesium sulfate 80 mg/ml injection (1 source) Start: 04-04-2022 End: 04-09-2022 Magnesium Sulfate 4 g in sterile water 50 ml premix IVPB melatonin 3 mg oral tablet (1 source) Start: 04-03-2022 End: 04-09-2022 take 6 mg by mouth once daily at bedtime as needed 6 mg, Oral, DAILY AT BEDTIME NEEDED, Starting on Wed04/03/22 at 2054, Until Ashley 04/09/22 at 1851, Insomnia 24 hr metoprolol succinate 25 mg extended release oral tablet (7 sources) beta-Adrenergic Vanessa Start: 04-10-2022 End: 05-13-2022 take 0.5 tablet by mouth once daily metoprolol succinate 25 MG tablet XL Take 0.5 tablets by mouth daily. 30 tablet 1 04/10/2022 05/13/2022 Discontinued (Therapy completed) Start: 04-10-2022 End: 04-09-2022 take 1 tablet by mouth once daily metoprolol succinate 25 MG tablet XL Take 1 tablet by mouth daily. 30 tablet 3 04/10/2022 04/09/2022 Discontinued (Stop Taking at Discharge) Start: 04-10-2022 End: 04-09-2022 metoprolol succinate (TOPROL -XL) tablet XL 12.5 mg Start: 04-08-2022 End: 04-09-2022 metoprolol succinate (TOPROL -XL) tablet XL 12.5 mg Perflutren Lipid Microsphere (DEFINITY) 1.5 mL in Normal saline flush 0.9% 8.5 mL (1 source) Start: 07-09-2022 End: 07-09-2022 Perflutren Lipid Microsphere (DEFINITY) 1.5 mL in Normal saline flush 0.9% 8.5 mL polyethylene glycol 3350 [id number] mg powder for oral solution (2 sources) Osmotic Laxative Start: 04-03-2022 End: 04-09-2022 polyethylene glycol (MIRALAX) packet 17 g polyvinyl alcohol 0.014 ml/ml / povidone 6 mg/ml ophthalmic solution (1 source) Start: 04-03-2022 End: 04-09-2022 take 1 drop(s) into the eye(s) every hour as needed 1 drop, Both Eyes, EVERY 1 HOUR NEEDED, Starting on Wed04/03/22 at 205, Until Ashley 04/09/22 at 1851, Dry Eyes Patient may self-administer. microencapsulated potassium chloride 20 meq extended release oral tablet (2 sources) Start: 04-04-2022 End: 04-09-2022 potassium chloride (K-DUR) tablet ER 20-40 mEq sennosides, [facility] 8.6 mg oral tablet (1 source) Start: 04-04-2022 End: 04-09-2022 senna (SENOKOT) tablet 8.6 mg 10 ml sodium chloride 9 mg/ml injection (2 sources) Start: 04-07-2022 End: 04-07-2022 sodium chloride (PF) 0.9 % injection 1-100 mL Start: 04-03-2022 End: 04-09-2022 Intravenous, at 20 mL/hr, NEEDED, Starting on Wed04/03/22 at 2053, Until Ashley 04/09/22 at 1851, Carrier Fluid - See Admin. Inst 250mL 0.9NS to be used as carrier fluid for intermittent small volume or piggyback medication administration as needed. Infusion rate of the carrier fluid should be set at 20 mL/hr unless the rate as the intermittent medication is less than 20 mL/hr. For intermittent medications with a rate less than 20 mL/hr set the carrier fluid at that rate of the intermittent or piggy back medication. spironolactone 25 mg oral tablet (7 sources) Aldosterone Antagonist Start: 04-10-2022 End: 05-13-2022 take 0.5 tablet by mouth once daily spironolactone 25 MG tablet Take 0.5 tablets by mouth daily. 15 tablet 3 04/10/2022 05/13/2022 Discontinued (Therapy completed) Start: 04-09-2022 End: 04-09-2022 spironolactone (ALDACTONE) t ablet 12.5 mg Start: 04-07-2022 End: 04-09-2022 spironolactone (ALDACTONE) t ablet 25 mg Start: 04-05-2022 End: 04-06-2022 spironolactone (ALDACTONE) t ablet 12.5 mg terbinafine hydrochloride 10 mg/ml topical cream (1 source) Allylamine Antifungal Start: 04-05-2022 End: 04-09-2022 terbinafine (lamISIL) 1 % cream 1 Application ticagrelor 90 mg oral tablet (15 sources) Start: 07-19-2023 End: 10-20-2023 take 1 tablet by mouth every twelve hours ticagrelor 90 MG tablet Take 1 tablet by mouth every 12 hours. Last dose on 10/03/23 60 tablet 2 07/19/2023 10/20/2023 Discontinued (Therapy completed) Start: 04-04-2022 End: 06-08-2022 take 1 tablet by mouth every twelve hours ticagrelor 90 MG tablet Take 1 tablet by mouth every 12 hours. 60 tablet 11 06/08/2022 Active 100 ml tirofiban 0.05 mg/ml injection (1 source) Platelet Aggregation Inhibitor Start: 04-04-2022 End: 04-04-2022 tirofiban (AGGRASTAT) 5 mg in 100 mL 0.9% NaCl premix IV infusion torsemide 20 mg oral tablet (13 sources) Loop Diuretic Start: 04-09-2022 End: 10-19-2022 Torsemide 20 MG tablet Take 1 tablet by mouth as needed. For weight over 140 lbs 0 05/13/2022 10/19/2022 Discontinued (Therapy completed) Start: 04-07-2022 End: 04-09-2022 torsemide (DEMADEX) tablet 4 0 mg Problems Active Problems Problem Classification Problem Date Documented Da te Episodic/Chronic Cardiac dysrhythmias (3 sources) Multiple premature ventricular complexes; Translations: [Ventricular premature depolarization] Onset: 10-20-2023 10-20-2023 Chronic Chronic kidney disease (1 source) Chronic kidney disease stage 3B ; Translations: [Chronic kidney disease, stage 3b] 01-13-2024 Chronic Chronic kidney disease (2 sources) Chronic kidney disease; Translations: [Chronic kidney disease, stage 3b] Onset: 01-13-2024 Congestive heart failure; nonhypertensive (20 sources) Acute systolic heart failure; Translations: [Acute systolic (congestive) heart failure] Onset: 04-03-2022 Resolved: 06-11-2022 Chronic Coronary atherosclerosis and other heart disease (18 sources) Coronary atherosclerosis; Translations: [Atherosclerotic heart disease of [place] coronary artery without angina pectoris] Onset: 04-09-2022 Chronic Diabetes mellitus with complications (20 sources) Type 1 diabetes mellitus with hyperglycemia; Translations: [Hyperglycemia due to type 1 diabetes mellitus] Onset: 2017 Chronic Diabetes mellitus without complication (5 sources) Insulin pump present; Translations: [Presence of insulin pump (external) (internal)] Onset: 01-13-2024 01-13-2024 Episodic Disorders of lipid metabolism (20 sources) Hyperlipidemia; Translations: [Hyperlipidemia, unspecified] Onset: 07-26-2014 04-09-2022 Chronic Nutritional deficiencies (2 sources) Vitamin D deficiency, unspecified; Translations: [Vitamin D deficiency, unspecified] Onset: 2017 Chronic Other circulatory disease (1 source) Low blood pressure; Translations: [Hypotension, unspecified] Episodic Other congenital anomalies (2 sources) Down syndrome, unspecified; Translations: [Down syndrome, unspecified] Onset: 08-25-2013 08-25-2013 Chronic Other congenital anomalies (15 sources) Anomaly of chromosome pair 21; Translations: [Down syndrome, unspecified] Onset: 03-29-2013 04-09-2022 Chronic Other congenital anomalies (15 sources) Complete trisomy 21 syndrome; Translations: [Down syndrome, unspecified] Onset: 11-23-2019 04-09-2022 Chronic Other hematologic conditions (1 source) Raised cardiac enzyme or marker; Translations: [Other specified abnormalities of plasma proteins] Episodic Thyroid disorders (16 sources) Hypothyroidism; Translations: [Hypothyroidism, unspecified] Onset: 11-23-2019 04-09-2022 Chronic Unclassified (2 sources) Aftercare ; Translations: [Encounter for other orthopedic aftercare] Onset: 06-10-2015 06-10-2015 Past or Other Problems Problem Classification Problem Date Documented Da te Episodic/Chronic Acute myocardial infarction (17 sources) Myocardial infarction; Translations: [Non-ST elevation (NSTEMI) myocardial infarction] Onset: 04-09-2022 Resolved: 04-09-2022 Chronic Other connective tissue disease (4 sources) Pain in finger; Translations: [Acquired trigger finger] Onset: 08-25-2013 08-25-2013 Episodic Other lower respiratory disease (2 sources) Dyspnea; Translations: [Shortness of breath] Onset: 04-22-2023 04-22-2023 Episodic Other lower respiratory disease (1 source) Shortness of breath; Translations: [Shortness of breath] Onset: 04-22-2023 Episodic Results Test Name Value Interpretation Reference Range Facility T-TRANSGLUTAMINASE IGG/IGA, ABon 01-15-2024 tTG IgA IA Qn (S) <1.2 <4.0 (Negative) U/mL [facility] tTG IgG IA Qn (S) 1.9 U/mL <6.0 (Negative) [facility] Comment on above: Test Performed by: [facility] [address] [place] [address] Broker Associate: Gino Danielson Ph.D.; CLIA# [id number] [facility] ANTI MICROSOMAL ANTIBODYOrde red By: Magdalena Bautista on 01-14-2024 Interpretation and review of laboratory results Abnormal [facility] TPO Ab Qn 179.7 [IU]/mL High NINF [facility] ANTI MICROSOMAL ANTIBODYon 0 01-13-2024 Anti-TPO Ab (Microsomal Ab) 179.7 IU/mL High <60.[address] [facility] Comment on above: Performed By: #### Y TT #### [facility] (DEFAULT) [address] [place] [address] CHEM 6 (LYTES, BUN CREA)on 0 01-13-2024 Anion gap [Moles/Vol] 13 mmol/L 7 - 17 mmol/L [facility] Chloride [Moles/Vol] 102 mmol/L 98 - 10 8 mmol/L [facility] CO2 [Moles/Vol] 30 mmol/L 21 - 31 mmol/L [facility] Creatinine [Mass/Vol] 1.04 mg/dL 0.50 - 1.20 mg/dL [facility] eGFR, CKD-EPI, Female 71 - PINF [facility] Comment on above: Reported eGFR is bas ed on the CKD-EPI 2020 equation using creatinine, age, and sex. Potassium [Moles/Vol] 4.7 mmol/L 3.5 - 5.0 mmol/L [facility] Sodium [Moles/Vol] 140 mmol/L 135 - 145 mmol/L [facility] Urea nitrogen [Mass/Vol] 21 mg/dL 7 - 25 mg/dL [facility] Urea nitrogen/Creatinine [Mass ratio] 20 mg/mg [facility] Anion gap [Moles/Vol] 13 mmol/L Normal 7-[address] [facility] Comment on above: Performed By: #### H STEPHAN, FT4, HFP, CHM6, IGA #### [facility] (DEFAULT) [address] [place] [id number] Chloride [Moles/Vol] 102 mmol/L Normal 98-[address] [facility] Comment on above: Performed By: #### H STEPHAN, FT4, HFP, CHM6, IGA #### [facility] (DEFAULT) [address] [place] [id number] CO2 [Moles/Vol] 30 mmol/L Normal 21-31 [facility] Comment on above: Performed By: #### H STEPHAN, FT4, HFP, CHM6, IGA #### [facility] (DEFAULT) [address] [place] [id number] Creatinine [Mass/Vol] 1.04 mg/dL Normal 0.50-1.[address] [facility] Comment on above: Performed By: #### H STEPHAN, FT4, HFP, CHM6, IGA #### [facility] (DEFAULT) [address] [place] [id number] GFR/1.73 sq M.predicted among non-blacks MDRD (S/P/Bld) [Vol rate/Area] 69 mL/min/{1.73_m2} Normal >=[address] [facility] Comment on above: Result Comment: Repo rted eGFR is based on the CKD-EPI 2020 equation using creatinine, age, and sex. Performed By: #### H STEPHAN, FT4, HFP, CHM6, IGA #### [facility] (DEFAULT) [address] [place] [id number] Potassium [Moles/Vol] 4.7 mmol/L Normal 3.5-5.[address] [facility] Comment on above: Performed By: #### H STEPHAN, FT4, HFP, CHM6, IGA #### [facility] (DEFAULT) [address] [place] [id number] Sodium [Moles/Vol] 140 mmol/L Normal 135-145 [facility] Comment on above: Performed By: #### H STEPHAN, FT4, HFP, CHM6, IGA #### [facility] (DEFAULT) [address] [place] [address] [id number] Urea nitrogen [Mass/Vol] 21 mg/dL Normal 7-[address] [facility] Comment on above: Performed By: #### H STEPHAN, FT4, HFP, CHM6, IGA #### [facility] (DEFAULT) [address] [place] [address] [id number] Urea nitrogen/Creatinine [Mass ratio] 20 mg/mg Normal [facility] Comment on above: Performed By: #### H STEPHAN, FT4, HFP, CHM6, IGA #### [facility] (DEFAULT) [address] [place] [address] [id number] HEPATIC FUNCTION PANELon Albumin [Mass/Vol] 3.7 g/dL 3.5 - 5.0 g/dL [facility] ALP [Catalytic activity/Vol] 67 U/L 32 - 126 U/L [facility] ALT [Catalytic activity/Vol] 25 U/L 9 - 48 U/L [facility] AST [Catalytic activity/Vol] 33 U/L 10 - 39 U/L [facility] Bilirubin [Mass/Vol] 0.7 mg/dL NINF - 1.5 mg/dL [facility] Bilirubin.direct [Mass/Vol] 0.2 mg/dL NINF - 0.3 mg/dL [facility] Interpretation and review of laboratory results Abnormal [facility] Protein [Mass/Vol] 6.3 g/dL Low 6.4 - 8.3 g/dL [facility] Albumin [Mass/Vol] 3.7 g/dL Normal 3.5-5.0 [facility] Comment on above: Performed By: #### H STEPHAN, FT4, HFP, CHM6, IGA #### [facility] (DEFAULT) [address] [place] [id number] ALP [Catalytic activity/Vol] 67 U/L Normal 32-[address] [facility] Comment on above: Performed By: #### H STEPHAN, FT4, HFP, CHM6, IGA #### [facility] (DEFAULT) [address] [place] [address] [id number] ALT [Catalytic activity/Vol] 25 U/L Normal 9-[address] [facility] Comment on above: Performed By: #### H STEPHAN, FT4, HFP, CHM6, IGA #### [facility] (DEFAULT) [address] [place] [address] [id number] AST [Catalytic activity/Vol] 33 U/L Normal 10-[address] [facility] Comment on above: Performed By: #### H STEPHAN, FT4, HFP, CHM6, IGA #### [facility] (DEFAULT) [address] [place] [address] [id number] Bilirubin [Mass/Vol] 0.7 mg/dL Normal <1.[address] [facility] Comment on above: Performed By: #### H STEPHAN, FT4, HFP, CHM6, IGA #### [facility] (DEFAULT) [address] [place] [address] [id number] Bilirubin.indirect [Mass/Vol] 0.2 mg/dL Normal <0.[address] [facility] Comment on above: Performed By: #### H STEPHAN, FT4, HFP, CHM6, IGA #### [facility] (DEFAULT) [address] [place] [address] [id number] Protein [Mass/Vol] 6.3 g/dL Low 6.4-8.3 [facility] Comment on above: Performed By: #### H STEPHAN, FT4, HFP, CHM6, IGA #### [facility] (DEFAULT) [address] [place] [address] IGAon 01-13-2024 IgA [Mass/Vol] 241 mg/dL 66 - 433 mg/dL [facility] IgA [Mass/Vol] 241 mg/dL Normal 66-[address] [facility] Comment on above: Performed By: #### H STEPHAN, FT4, HFP, CHM6, IGA #### [facility] (DEFAULT) [address] [place] [address] LIPID PANEL W CALCULATED LDL on 01-13-2024 Cholesterol [Mass/Vol] 100 mg/dL NINF - 200 mg/dL [facility] Comment on above: [<200 mg/dL: Desirab le] [200-239 mg/dL: Borderline High] [>239 mg/dL: High] Cholesterol in HDL [Mass/Vol] 46 mg/dL 40 - PINF mg/dL [facility] Comment on above: [<40 mg/dL: Low (Hig h Risk)] [>59 mg/dL: High (Low Risk)] Cholesterol in LDL [Mass/Vol] 40 mg/dL 0 - 99 mg/dL [facility] Comment on above: [<100 mg/dL: Optimal ] [100-129 mg/dL: Near Optimal] [130-159 mg/dL: Borderline High] [160-189 mg/dL: High] [>189 mg/dL: Very High] Cholesterol non HDL [Mass/Vol] 54 mg/dL NINF - 130 mg/dL [facility] Cholesterol.total/Ch olesterol in HDL [Mass ratio] 2.2 {ratio} NINF - 4.5 [facility] Triglyceride [Mass/Vol] 70 mg/dL NINF - 150 mg/dL [facility] Comment on above: [<150 mg/dL: Desirab le] [150-199 mg/dL: Borderline] [200-499 mg/dL: High] [>500 mg/dL: Very High] Calculated LDL Cholesterol 40 mg/dL Normal 0-[address] [facility] Comment on above: Result Comment: [<10 0 mg/dL: Optimal] [100-129 mg/dL: Near Optimal] [130-159 mg/dL: Borderline High] [160-189 mg/dL: High] [>189 mg/dL: Very High] Performed By: #### H STEPHAN, FT4, HFP, CHM6, IGA #### [facility] (DEFAULT) [address] [place] [address] 02612 Cholesterol [Mass/Vol] 100 mg/dL Normal <[address] [facility] Comment on above: Result Comment: [<20 0 mg/dL: Desirable] [200-239 mg/dL: Borderline High] [>239 mg/dL: High] Performed By: #### H STEPHAN, FT4, HFP, CHM6, IGA #### [facility] (DEFAULT) [address] [place] [address] 46493 Cholesterol in HDL [Mass/Vol] 46 mg/dL Normal >=[address] [facility] Comment on above: Result Comment: [<40 mg/dL: Low (High Risk)] [>59 mg/dL: High (Low Risk)] Performed By: #### H STEPHAN, FT4, HFP, CHM6, IGA #### [facility] (DEFAULT) [address] [place] [address] 18339 Non HDL Cholesterol 54 mg/dL Normal <[address] [facility] Comment on above: Performed By: #### H STEPHAN, FT4, HFP, CHM6, IGA #### [facility] (DEFAULT) [address] [place] [address] 80276 Total Cholesterol/HDL Ratio 2.2 Normal <4.[address] [facility] Comment on above: Performed By: #### H STEPHAN, FT4, HFP, CHM6, IGA #### [facility] (DEFAULT) [address] [place] [address] 44292 Triglyceride [Mass/Vol] 70 mg/dL Normal <[address] [facility] Comment on above: Result Comment: [<15 0 mg/dL: Desirable] [150-199 mg/dL: Borderline] [200-499 mg/dL: High] [>500 mg/dL: Very High] Performed By: #### H STEPHAN, FT4, HFP, CHM6, IGA #### [facility] (DEFAULT) [address] [place] [address] 15509 MICROALBUMIN,RANDOM URINEOrd ered By: Cassandra Alonso on 01-13-2024 Albumin DL <= 20 mg/L (U) [Mass/Vol] mg/L mg/L [facility] Albumin/Creatinine DL <= 20 mg/L (U) [Ratio] [facility] Comment on above: Not Calculated Creatinine (24H U) [Mass/Vol] 61.28 mg/dL [facility] MICROALBUMIN,RANDOM URINEon 01-13-2024 Albumin DL <= 20 mg/L (U) [Mass/Vol] mg/dL Normal [facility] Comment on above: Performed By: #### Y TT #### [facility] (DEFAULT) [address] [place] [address] 60762 Creatinine (U) [Mass/Vol] 61.28 mg/dL Normal [facility] Comment on above: Performed By: #### Y TT #### [facility] (DEFAULT) [address] [place] [address] 80493 Microalbumin/Creatin ine Ratio Normal [facility] Comment on above: Result Comment: Not Calculated Performed By: #### Y TT #### [facility] (DEFAULT) [address] [place] [address] 28857 No Panel Informationon 01-12 Interpretation and review of laboratory results Normal [facility] T-TRANSGLUTAMINASE IGG/IGA, ABon 01-13-2024 T-TRANSGLUTAMINASE IGA AB <1.2 Normal <4.0 (Negative) [facility] Comment on above: Performed By: #### Y TT #### [facility] (DEFAULT) [address] [place] [address] 37563 Tissue Transglutaminase, IgG 1.9 U/mL Normal <6.0 (Negative) [facility] Comment on above: Result Comment: Test Performed by: [facility] [address] [place] [address] Broker Associate: Gino Danielson Ph.D.; CLIA# [id number] Performed By: #### Y TT #### [facility] (DEFAULT) [address] [place] [address] 43982 T4 FREEon 01-13-2024 Free T4 [Mass/Vol] 0.89 ng/dL Normal 0.89-1.76 [facility] Comment on above: Performed By: #### H STEPHAN, FT4, HFP, CHM6, IGA #### [facility] (DEFAULT) [address] [place] [address] 32535 TSH W/FT4 REFLEXon Interpretation and review of laboratory results Abnormal [facility] TSH Qn 8.108 m[IU]/L High [facility] TSH 8.108 uIU/mL High 0.550-4.[address] [facility] Comment on above: Performed By: #### Y TT #### [facility] (DEFAULT) [address] [place] [address] 45347 VITAMIN B12on 01-13-2024 Cobalamin (Vitamin B12) [Mass/Vol] 598 pg/mL 211 - 911 pg/mL [facility] Comment on above: Testing of Methylmal onic Acid and Intrinsic Factor Blocking Antibody are recommended if clinical suspicion for pernicious anemia due to B12 deficiency is high for patients with intermediate B12 levels (211 to 400 pg/mL) to rule out spurious heterophile antibodies. Interpretation and review of laboratory results Normal [facility] Cobalamin (Vitamin B12) [Mass/Vol] 598 pg/mL Normal 211-[address] [facility] Comment on above: Result Comment: Test ing of Methylmalonic Acid and Intrinsic Factor Blocking Antibody are recommended if clinical suspicion for pernicious anemia due to B12 deficiency is high for patients with intermediate B12 levels (211 to 400 pg/mL) to rule out spurious heterophile antibodies. Performed By: #### Y TT #### [facility] (DEFAULT) [address] [place] [address] 84911 VITAMIN D (25-HYDROXY,TOTAL) on 01-13-2024 Interpretation and review of laboratory results Normal [facility] Vitamin D+Metabolites [Mass/Vol] 42.7 ng/mL 30.0 - 100.0 ng/mL [facility] Comment on above: <10 Deficiency 10-29 Insufficiency 30-100 Optimal Level >100 Possible Toxicity Vitamin D values have been shown to be falsely decreased in lipemic samples and should be interpreted with caution. [facility] 25-OH Vitamin D Total 42.7 ng/mL Normal 30.0-100.[address] [facility] Comment on above: Order Comment: Vitam in D values have been shown to be falsely decreased in lipemic samples and should be interpreted with caution. Result Comment: <10 Deficiency 10-29 Insufficiency 30-100 Optimal Level >100 Possible Toxicity Performed By: #### D 25OH #### [facility] (DEFAULT) [address] [address] B-TYPE NATRIURETIC PEPTIDE ( BRAIN)on 10-20-2023 Interpretation and review of laboratory results Abnormal [facility] Natriuretic peptide B (Bld) [Mass/Vol] 318 pg/mL High 0 - 100 pg/mL [facility] Natriuretic peptide B (Bld) [Mass/Vol] 318 pg/mL High 0-[address] [facility] Comment on above: Performed By: #### B REMOTE SENSING SPECIALIST #### [facility] (DEFAULT) [address] [address] BASIC METABOLIC PANELon Anion gap [Moles/Vol] 12 mmol/L 7 - 17 mmol/L [facility] Calcium [Mass/Vol] 9.1 mg/dL 8.6 - 10. 5 mg/dL [facility] Chloride [Moles/Vol] 101 mmol/L 98 - 10 8 mmol/L [facility] CO2 [Moles/Vol] 29 mmol/L 21 - 31 mmol/L [facility] Creatinine [Mass/Vol] 1.11 mg/dL 0.50 - 1.20 mg/dL [facility] eGFR, CKD-EPI, Female 66 - PINF [facility] Comment on above: Reported eGFR is bas ed on the CKD-EPI 2020 equation using creatinine, age, and sex. Glucose [Mass/Vol] 190 mg/dL High 70 - 99 mg/dL [facility] Interpretation and review of laboratory results Abnormal [facility] Osmolality Calc [Osmolality] 298 [facility] Potassium [Moles/Vol] 4.4 mmol/L 3.5 - 5.0 mmol/L [facility] Sodium [Moles/Vol] 138 mmol/L 135 - 145 mmol/L [facility] Urea nitrogen [Mass/Vol] 19 mg/dL 7 - 25 mg/dL [facility] Urea nitrogen/Creatinine [Mass ratio] 17 mg/mg [facility] Anion gap [Moles/Vol] 12 mmol/L Normal 7-[address] [facility] Comment on above: Performed By: #### Kehinde 7C, LIPDR #### [facility] (DEFAULT) [address] [place] [address] Calcium [Mass/Vol] 9.1 mg/dL Normal 8.6-10.5 [facility] Comment on above: Performed By: #### Kehinde 7C, LIPDR #### [facility] (DEFAULT) [address] [place] [address] Chloride [Moles/Vol] 101 mmol/L Normal 98-[address] [facility] Comment on above: Performed By: #### Kehinde 7C, LIPDR #### [facility] (DEFAULT) [address] [place] [address] CO2 [Moles/Vol] 29 mmol/L Normal 21-31 [facility] Comment on above: Performed By: #### Kehinde 7C, LIPDR #### [facility] (DEFAULT) [address] [place] [address] 99449 Creatinine [Mass/Vol] 1.11 mg/dL Normal 0.50-1.[address] [facility] Comment on above: Performed By: #### Kehinde 7C, LIPDR #### [facility] (DEFAULT) [address] [place] [address] 52526 GFR/1.73 sq M.predicted among non-blacks MDRD (S/P/Bld) [Vol rate/Area] 64 mL/min/{1.73_m2} Normal >=[address] [facility] Comment on above: Result Comment: Repo rted eGFR is based on the CKD-EPI 2020 equation using creatinine, age, and sex. Performed By: #### Kehinde Valdes, LIPDR #### [facility] (DEFAULT) [address] [place] [address] 17110 Glucose [Mass/Vol] 190 mg/dL High 70-99 [facility] Comment on above: Performed By: #### Kehinde Valdes, LIPDR #### [facility] (DEFAULT) [address] [place] [address] 95019 Osmolality [Osmolality] 298 mosm/kg Normal 278-[address] [facility] Comment on above: Performed By: #### Kehinde 7C, LIPDR #### [facility] (DEFAULT) [address] [place] [address] 09288 Potassium [Moles/Vol] 4.4 mmol/L Normal 3.5-5.[address] [facility] Comment on above: Performed By: #### Kehinde 7C, LIPDR #### [facility] (DEFAULT) [address] [place] [address] 73689 Sodium [Moles/Vol] 138 mmol/L Normal 135-145 [facility] Comment on above: Performed By: #### Kehinde 7C, LIPDR #### [facility] (DEFAULT) [address] [place] [address] 21637 Urea nitrogen [Mass/Vol] 19 mg/dL Normal 7-[address] [facility] Comment on above: Performed By: #### C 7C, LIPDR #### [facility] (DEFAULT) [address] [place] [address] Urea nitrogen/Creatinine [Mass ratio] 17 mg/mg Normal [facility] Comment on above: Performed By: #### C 7C, LIPDR #### [facility] (DEFAULT) [address] [place] [address] LIPID PANEL WITH REFLEX TO M EASURED LDLon 10-20-2023 Cholesterol [Mass/Vol] 91 mg/dL NINF - 200 mg/dL [facility] Comment on above: [<200 mg/dL: Desirab le] [200-239 mg/dL: Borderline High] [>239 mg/dL: High] Cholesterol in HDL [Mass/Vol] 41 mg/dL 40 - PINF mg/dL [facility] Comment on above: [<40 mg/dL: Low (Hig h Risk)] [>59 mg/dL: High (Low Risk)] Cholesterol in LDL [Mass/Vol] 37 mg/dL 0 - 99 mg/dL [facility] Comment on above: [<100 mg/dL: Optimal ] [100-129 mg/dL: Near Optimal] [130-159 mg/dL: Borderline High] [160-189 mg/dL: High] [>189 mg/dL: Very High] Cholesterol non HDL [Mass/Vol] 50 mg/dL NINF - 130 mg/dL [facility] Cholesterol.total/Ch olesterol in HDL [Mass ratio] 2.2 {ratio} NINF - 4.5 [facility] Interpretation and review of laboratory results Normal [facility] Triglyceride [Mass/Vol] 66 mg/dL NINF - 150 mg/dL [facility] Comment on above: [<150 mg/dL: Desirab le] [150-199 mg/dL: Borderline] [200-499 mg/dL: High] [>500 mg/dL: Very High] Calculated LDL Cholesterol 37 mg/dL Normal 0-[address] [facility] Comment on above: Result Comment: [<10 0 mg/dL: Optimal] [100-129 mg/dL: Near Optimal] [130-159 mg/dL: Borderline High] [160-189 mg/dL: High] [>189 mg/dL: Very High] Performed By: #### Kehinde Valdes, LIPDR #### [facility] (DEFAULT) [address] [place] [address] 70519 Cholesterol [Mass/Vol] 91 mg/dL Normal <[address] [facility] Comment on above: Result Comment: [<20 0 mg/dL: Desirable] [200-239 mg/dL: Borderline High] [>239 mg/dL: High] Performed By: #### Kehinde Valdes, LIPDR #### [facility] (DEFAULT) [address] [place] [address] 10960 Cholesterol in HDL [Mass/Vol] 41 mg/dL Normal >=[address] [facility] Comment on above: Result Comment: [<40 mg/dL: Low (High Risk)] [>59 mg/dL: High (Low Risk)] Performed By: #### Kehinde Valdes, LIPDR #### [facility] (DEFAULT) [address] [place] [address] 99775 Non HDL Cholesterol 50 mg/dL Normal <[address] [facility] Comment on above: Performed By: #### Kehinde Valdes, LIPDR #### [facility] (DEFAULT) [address] [place] [address] 49916 Total Cholesterol/HDL Ratio 2.2 Normal <4.[address] [facility] Comment on above: Performed By: #### Kehinde Valdes, LIPDR #### [facility] (DEFAULT) [address] [place] [address] 73415 Triglyceride [Mass/Vol] 66 mg/dL Normal <[address] [facility] Comment on above: Result Comment: [<15 0 mg/dL: Desirable] [150-199 mg/dL: Borderline] [200-499 mg/dL: High] [>500 mg/dL: Very High] Performed By: #### Kehinde Valdes, LIPDR #### [facility] (DEFAULT) [address] [place] [address] 70868 No Panel Informationon 10-19 [facility] B-TYPE NATRIURETIC PEPTIDE ( BRAIN)on 04-22-2023 Interpretation and review of laboratory results Abnormal [facility] Natriuretic peptide B (Bld) [Mass/Vol] 474 pg/mL High 0 - 100 pg/mL [facility] Natriuretic peptide B (Bld) [Mass/Vol] 474 pg/mL High 0-[address] [facility] Comment on above: Performed By: #### Y TT #### [facility] (DEFAULT) [address] [place] [address] 86567 CHEM 6 (LYTES, BUN CREA)on 06-23-2022 Anion gap [Moles/Vol] 10 mmol/L 7 - 17 mmol/L [facility] Chloride [Moles/Vol] 102 mmol/L 98 - 10 8 mmol/L [facility] CO2 [Moles/Vol] 29 mmol/L 21 - 31 mmol/L [facility] Creatinine [Mass/Vol] 0.95 mg/dL 0.50 - 1.20 mg/dL [facility] eGFR, CKD-EPI, Female 78 - PINF [facility] Comment on above: Reported eGFR is bas ed on the CKD-EPI 2020 equation using creatinine, age, and sex. Potassium [Moles/Vol] 4.2 mmol/L 3.5 - 5.0 mmol/L [facility] Sodium [Moles/Vol] 137 mmol/L 135 - 145 mmol/L [facility] Urea nitrogen [Mass/Vol] 17 mg/dL 7 - 25 mg/dL [facility] Urea nitrogen/Creatinine [Mass ratio] 18 mg/mg [facility] Anion gap [Moles/Vol] 10 mmol/L Normal 7-[address] [facility] Comment on above: Performed By: #### Y TT #### [facility] (DEFAULT) [address] [place] [address] Chloride [Moles/Vol] 102 mmol/L Normal 98-[address] [facility] Comment on above: Performed By: #### Y TT #### [facility] (DEFAULT) [address] [place] [address] 38301 CO2 [Moles/Vol] 29 mmol/L Normal 21-31 [facility] Comment on above: Performed By: #### Y TT #### [facility] (DEFAULT) [address] [place] [address] 60190 Creatinine [Mass/Vol] 0.95 mg/dL Normal 0.50-1.[address] [facility] Comment on above: Performed By: #### Y TT #### [facility] (DEFAULT) [address] [place] [address] 99687 GFR/1.73 sq M.predicted among non-blacks MDRD (S/P/Bld) [Vol rate/Area] 78 mL/min/{1.73_m2} Normal >=[address] [facility] Comment on above: Result Comment: Repo rted eGFR is based on the CKD-EPI 2020 equation using creatinine, age, and sex. Performed By: #### Y TT #### [facility] (DEFAULT) [address] [place] [address] 53505 Potassium [Moles/Vol] 4.2 mmol/L Normal 3.5-5.[address] [facility] Comment on above: Performed By: #### Y TT #### [facility] (DEFAULT) [address] [place] [address] 36504 Sodium [Moles/Vol] 137 mmol/L Normal 135-145 [facility] Comment on above: Performed By: #### Y TT #### [facility] (DEFAULT) [address] [place] [address] 72518 Urea nitrogen [Mass/Vol] 17 mg/dL Normal 7-[address] [facility] Comment on above: Performed By: #### Y TT #### [facility] (DEFAULT) [address] [place] [address] 12124 Urea nitrogen/Creatinine [Mass ratio] 18 mg/mg Normal [facility] Comment on above: Performed By: #### Y TT #### [facility] (DEFAULT) [address] [place] [address] B-TYPE NATRIURETIC PEPTIDE ( BRAIN)on 10-19-2022 Interpretation and review of laboratory results Abnormal [facility] Natriuretic peptide B (Bld) [Mass/Vol] 365 pg/mL High 0 - 100 pg/mL [facility] BASIC METABOLIC PANELon Anion gap [Moles/Vol] 10 mmol/L 7 - 17 mmol/L [facility] Calcium [Mass/Vol] 8.4 mg/dL Low 8.6 - 10. 5 mg/dL [facility] Chloride [Moles/Vol] 100 mmol/L 98 - 10 8 mmol/L [facility] CO2 [Moles/Vol] 30 mmol/L 21 - 31 mmol/L [facility] Creatinine [Mass/Vol] 1.34 mg/dL High 0.50 - 1.20 mg/dL [facility] GFR/1.73 sq M.predicted CKD-EPI (S/P/Bld) [Vol rate/Area] 51 Low - PINF [facility] Comment on above: Reported eGFR is bas ed on the CKD-EPI 2020 equation using creatinine, age, and sex. Glucose [Mass/Vol] 324 mg/dL High 70 - 99 mg/dL [facility] Interpretation and review of laboratory results Abnormal [facility] Osmolality Calc [Osmolality] 303 [facility] Potassium [Moles/Vol] 4.1 mmol/L 3.5 - 5.0 mmol/L [facility] Sodium [Moles/Vol] 136 mmol/L 135 - 145 mmol/L [facility] Urea nitrogen [Mass/Vol] 22 mg/dL 7 - 25 mg/dL [facility] Urea nitrogen/Creatinine [Mass ratio] 16 mg/mg [facility] LIPID PANEL WITH REFLEX TO M EASURED LDLon 10-19-2022 Cholesterol [Mass/Vol] 91 mg/dL NINF - 200 mg/dL [facility] Comment on above: [<200 mg/dL: Desirab le] [200-239 mg/dL: Borderline High] [>239 mg/dL: High] Cholesterol in HDL [Mass/Vol] 46 mg/dL 40 - PINF mg/dL [facility] Comment on above: [<40 mg/dL: Low (Hig h Risk)] [>59 mg/dL: High (Low Risk)] Cholesterol in HDL [Mass/Vol] 45 mg/dL NINF - 130 mg/dL [facility] Cholesterol in LDL [Mass/Vol] 28 mg/dL 0 - 99 mg/dL [facility] Comment on above: [<100 mg/dL: Optimal ] [100-129 mg/dL: Near Optimal] [130-159 mg/dL: Borderline High] [160-189 mg/dL: High] [>189 mg/dL: Very High] Cholesterol.total/Ch olesterol in HDL [Mass ratio] 2.0 {ratio} NINF - 4.5 [facility] Interpretation and review of laboratory results Normal [facility] Triglyceride [Mass/Vol] 84 mg/dL NINF - 150 mg/dL [facility] Comment on above: [<150 mg/dL: Desirab le] [150-199 mg/dL: Borderline] [200-499 mg/dL: High] [>500 mg/dL: Very High] No Panel Informationon 10-19 [facility] Cardiac echo study Procedure Ordered By: Halle Grace on 07-09-2022 Ao peak yannick 1.04 m/s [facility] Work Phone: Ao VTI 21.57 cm [facility] Work Phone: Ascending aorta 2.56 cm [facility] Work Phone: AV LVOT peak gradient 3 mmHg [facility] Work Phone: AV mean gradient 3 mmHg [facility] Work Phone: AV peak gradient 4 mmHG [facility] Work Phone: AV valve area 2.04 cm2 [facility] Work Phone: AV Velocity Ratio 0.78 [facility] Work Phone: CAPO (continuity Vmax) 2.00 cm2 [facility] Work Phone: CAPO (continuity VTI) 2.04 cm2 [facility] Work Phone: CAPO index (continuity Vmax) 1.26 m/s [facility] Work Phone: CAPO index (continuity VTI) 1.28 cm2/m2 [facility] Work Phone: Avg e' pk yannick 0.13 m/s [facility] Work Phone: Avg E/e' ratio 10.91 [facility] Work Phone: Body surface area Derived from formula 1.59 m2 [facility] Work Phone: BP EF 33 % [facility] Work Phone: DI (Vmax) 0.78 [facility] Work Phone: DI (VTI) 0.79 m/2 [facility] Work Phone: E wave decelartion time 138.07 msec [facility] Work Phone: e' lateral pk yannick 0.1736 m/s [facility] Work Phone: e' lateral pk yannick 0.17 m/s [facility] Work Phone: e' septal pk yannick 0.0815 m/s [facility] Work Phone: e' septal pk yannick 0.08 m/s [facility] Work [facility]: E/A ratio 3.46 [facility] Work Phone: E/e' lateral ratio 6.97 [facility] Work Phone: E/e' septal ratio 14.85 [facility] Work Phone: EF SP 2CH 39 [facility] Work Phone: EF SP 4CH 33 [facility] Work Phone: FS 13 % 28 - 44 % [facility] Work Phone: IVS 0.70 cm [facility] Work Phone: LA AREA 2CH 16.79 cm2 [facility] Work Phone: LA area 4CH 19.17 cm2 [facility] Work Phone: LA ESV BP (MOD) 50 mL [facility] Work Phone: LA ESV BP (MOD) index 31 mL/m2 [facility] Work Phone: LA ESV SP 2CH (MOD) 45 mL [facility] Work Phone: LA ESV SP 4CH (MOD) 52 mL [facility] Work Phone: LV EDV BP 129 mL [facility] Work Phone: LV EDV SP 2CH 110 mL [facility] Work Phone: LV EDV SP 4CH 144 mL [facility] Work Phone: LV ESV BP 87 mL [facility] Work Phone: LV ESV SP 2CH 67 mL [facility] Work Phone: LV ESV SP 4CH 96 mL [facility] Work Phone: LV mass 139.65 g [facility] Work Phone: LV Mass Index 87.8 g/m2 [facility] Work Phone: LV RWT 0.26 [facility] Work Phone: LV stroke volume BP (ml) 42 mL [facility] Work Phone: LV stroke volume index BP 26.42 mL/m2 [facility] Work Phone: LVIDD 5.54 cm [facility] Work Phone: LVIDS 4.83 cm [facility] Work Phone: LVOT area 2.57 cm2 [facility] Work Phone: LVOT diameter 1.81 cm [facility] Work Phone: LVOT peak yannick 0.81 m/s [facility] Work Phone: LVOT peak VTI 17.12 cm [facility] Work Phone: LVOT stroke volume 44 cm3 [facility] Work Phone: LVOT stroke volume index 27.69 ml/m2 [facility] Work Phone: MV pk A yannick 0.35 m/s [facility] Work Phone: MV pk E yannick 1.21 m/s [facility] Work Phone: MV stenosis pressure 1/2 time 40.04 ms [facility] Work Phone: MV valve area p 1/2 method 5.49 cm2 [facility] Work Phone: OS AV VTI RATIO PRE STRESS 0.79 [facility] Work Phone: [facility] ECHO LV BIPLANE SYSTOLIC VOLUME INDEX 54.72 mL/m2 [facility] Work Phone: [facility] ECHO LV BP DIASTOLIC VOLUME INDEX 81.13 mL/m2 [facility] Work Phone: PV peak gradient 4 [facility] Work Phone: PV PK YANNICK 0.95 m/s [facility] Work Phone: PW 0.72 cm [facility] Work Phone: RA vol index 4CH (MOD) 15.09 mL/m2 [facility] Work Phone: Right atrium volume 4 chamber method of disks 24 mL [facility] Work Phone: RV Area diastolic 22.44 cm2 [facility] Work Phone: RV Area systolic 14.40 cm2 [facility] Work Phone: RV basal diam 4.06 cm [facility] Work Phone: RV Fractional area change 35.8 % [facility] Work Phone: RV long diam 9.34 cm [facility] Work Phone: RV mid diam 1.89 cm [facility] Work Phone: RV S' 10.60 cm/s [facility] Work Phone: RVOT peak gradient 2 mmHg [facility] Work Phone: RVOT peak yannick 0.63 m/s [facility] Work Phone: Sinus 2.43 cm [facility] Work Phone: STJ 2.36 cm [facility] Work Phone: Stroke Volume 44 cm/mL [facility] [facility] Work Phone: Stroke volume index [address] [facility] Work Phone: TAPSE 2.07 cm [facility] Work Phone: [facility] Work Phone: Cardiac echo study Procedure on 07-09-2022 1. Left ventricle is mildly dilated with thinning and akinesis of the apex, mid to distal septum, anterolateral and inferolateral christopher. 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 Left ventricular ejection fraction is severely reduced (20-24%). There is swirling contrast in the LV apex but no definitive thrombus seen. 2. Grade III diastolic dysfunction. 3. Right ventricular chamber size is normal, with moderately reduced systolic function. 4. Mild mitral regurgitation. 5. Unable to assess right ventricular systolic pressure due to inadequate TR jet. Left Ventricle Chamber size is mildly enlarged. Normal wall thickness. No concentric nor eccentric hypertrophy. Severe global hypokinesis. Wall motion abnormality: See wall scoring diagram. Ejection fraction is severely reduced (20 - 24%). Diastolic function is consistent with restrictive physiology (grade III). No thrombus is present. Right Ventricle Chamber size is normal. Systolic function is mildly reduced. Left Atrium Chamber size is normal. Right Atrium Chamber size is normal. IVC/SVC The inferior vena cava structure has a diameter <21 mm and decreases >50% during inspiration. Mitral Valve Normal appearing leaflets. Leaflet mobility is normal. Mild regurgitation. No valve stenosis. Tricuspid Valve Normal leaflets. Leaflet mobility is normal. Trace regurgitation. No stenosis. Pulmonary artery systolic pressure (PASP) is unable to be estimated. Poor tricuspid regurgitation jet may not accurately reflect right ventricular systolic pressure. Aortic Valve Trileaflet valve. Leaflet mobility is normal. Trace regurgitation. No stenosis. Mean gradient: 3 mmHg. Dimensionless Index by VTI: 0.79. Valve area continuity VTI: 2.04 cm2. The valve Vmax is 1.04 m/s. Pulmonic Valve Pulmonic valve not well visualized. Trace regurgitation. No stenosis. Pericardium Appears normal. No pericardial effusion. Septum The atrial septum is normal. Pulmonary Artery Pulmonary artery not assessed. Aorta No dilation to extent seen. SOV: 2.43 cm. STJ: 2.36 cm. Ascendin.56 cm. Study Details A complete echocardiography study (including microbubbles) was performed. Contrast was administered. Imaging system used: Siemens. Indications Indications for study: CHF and CAD. Wall Scoring Score Index: 2.53 The following segments are akinetic: mid anteroseptal, mid inferoseptal, mid inferolateral, mid anterolateral, apical anterior, apical septal, apical inferior, apical lateral and apex. The following segments are hypokinetic: basal anterior, basal anteroseptal, basal inferoseptal, basal inferior, basal inferolateral, basal anterolateral, mid anterior and mid inferior. [facility] Radiology Study observation (narrative) [facility] DEVICE EVALUATION (SCANNED)o n 05-06-2022 [facility] Radiology Study observation (narrative) [facility] CBC,PLATELETSon 04-09-2022 Erythrocyte distribution width (RBC) [Ratio] 12.9 % 10.8 - 14.9 % [facility] Hematocrit (Bld) [Volume fraction] 34.5 % Low 34.9 - 44.3 % [facility] Hemoglobin (Bld) [Mass/Vol] 11.5 g/dL 11.4 - 15.2 g/dL [facility] Interpretation and review of laboratory results Abnormal [facility] MCH (RBC) [Entitic mass] 33.3 pg 25.9 - 33.9 pg [facility] MCHC (RBC) [Mass/Vol] 33.3 g/dL 31.4 - 35.9 g/dL [facility] MCV (RBC) [Entitic vol] 100.0 fL High 79.6 - 97.7 fL [facility] Platelet mean volume (Bld) [Entitic vol] 11.5 fL 8.5 - 12.2 fL [facility] Platelets (Bld) [#/Vol] 237 10*3/uL 150 - 393 K/uL [facility] RBC (Bld) [#/Vol] 3.45 10*6/uL Low [facility] WBC (Bld) [#/Vol] 5.52 10*3/uL 3.99 - 11. 19 K/uL [facility] CHEM 7 (LYTES,BUN,CREA,GLUC) on 04-09-2022 Anion gap [Moles/Vol] 14 mmol/L 7 - 17 mmol/L [facility] Chloride [Moles/Vol] 97 mmol/L Low 98 - 10 8 mmol/L [facility] CO2 [Moles/Vol] 30 mmol/L 21 - 31 mmol/L [facility] Creatinine [Mass/Vol] 0.98 mg/dL 0.50 - 1.20 mg/dL [facility] GFR/1.73 sq M.predicted CKD-EPI (S/P/Bld) [Vol rate/Area] 75 - PINF [facility] Comment on above: Reported eGFR is bas ed on the CKD-EPI 2020 equation using creatinine, age, and sex. Glucose [Mass/Vol] 236 mg/dL High 70 - 99 mg/dL [facility] Interpretation and review of laboratory results Abnormal [facility] Osmolality Calc [Osmolality] 297 [facility] Potassium [Moles/Vol] 4.8 mmol/L 3.5 - 5.0 mmol/L [facility] Sodium [Moles/Vol] 136 mmol/L 135 - 145 mmol/L [facility] Urea nitrogen [Mass/Vol] 18 mg/dL 7 - 25 mg/dL [facility] Urea nitrogen/Creatinine [Mass ratio] 18 mg/mg [facility] CONTINUOUS CARDIAC MONITORIN G STRIPon 04-09-2022 [facility] GLUCOSE POCon 04-09-2022 Glucose [Mass/Vol] 211 mg/dL High 70 - 99 mg/dL [facility] Interpretation and review of laboratory results Abnormal [facility] POC Sample Type CAPBL [facility] Test performed at address of the patient encounter. [facility] Glucose [Mass/Vol] 284 mg/dL High 70 - 99 mg/dL [facility] Interpretation and review of laboratory results Abnormal [facility] POC Sample Type CAPBL [facility] Test performed at address of the patient encounter. [facility] Glucose [Mass/Vol] 313 mg/dL High 70 - 99 mg/dL [facility] Interpretation and review of laboratory results Abnormal [facility] POC Sample Type CAPBL [facility] Test performed at address of the patient encounter. [facility] Glucose [Mass/Vol] 332 mg/dL High 70 - 99 mg/dL [facility] Interpretation and review of laboratory results Abnormal [facility] POC Sample Type CAPBL [facility] Test performed at address of the patient encounter. [facility] Glucose [Mass/Vol] 238 mg/dL High 70 - 99 mg/dL [facility] Interpretation and review of laboratory results Abnormal [facility] POC Sample Type CAPBL [facility] Test performed at address of the patient encounter. [facility] MAGNESIUMon 04-09-2022 Interpretation and review of laboratory results Normal [facility] Magnesium [Mass/Vol] 1.9 mg/dL 1.6 - 2 .6 mg/dL [facility] No Panel Informationon 04-09 [facility] CBC,PLATELETSon 04-08-2022 Erythrocyte distribution width (RBC) [Ratio] 13.2 % 10.8 - 14.9 % [facility] Hematocrit (Bld) [Volume fraction] 34.4 % Low 34.9 - 44.3 % [facility] Hemoglobin (Bld) [Mass/Vol] 11.7 g/dL 11.4 - 15.2 g/dL [facility] Interpretation and review of laboratory results Abnormal [facility] MCH (RBC) [Entitic mass] 34.1 pg High 25.9 - 33.9 pg [facility] MCHC (RBC) [Mass/Vol] 34.0 g/dL 31.4 - 35.9 g/dL [facility] MCV (RBC) [Entitic vol] 100.3 fL High 79.6 - 97.7 fL [facility] Platelet mean volume (Bld) [Entitic vol] 11.2 fL 8.5 - 12.2 fL [facility] Platelets (Bld) [#/Vol] 249 10*3/uL 150 - 393 K/uL [facility] RBC (Bld) [#/Vol] 3.43 10*6/uL Low [facility] WBC (Bld) [#/Vol] 4.65 10*3/uL 3.99 - 11. 19 K/uL [facility] CHEM 7 (LYTES,BUN,CREA,GLUC) on 04-08-2022 Anion gap [Moles/Vol] 13 mmol/L 7 - 17 mmol/L [facility] Chloride [Moles/Vol] 95 mmol/L Low 98 - 10 8 mmol/L [facility] CO2 [Moles/Vol] 33 mmol/L High 21 - 31 mmol/L [facility] Creatinine [Mass/Vol] 0.98 mg/dL 0.50 - 1.20 mg/dL [facility] GFR/1.73 sq M.predicted CKD-EPI (S/P/Bld) [Vol rate/Area] 75 - PINF [facility] Comment on above: Reported eGFR is bas ed on the CKD-EPI 2020 equation using creatinine, age, and sex. Glucose [Mass/Vol] 199 mg/dL High 70 - 99 mg/dL [facility] Interpretation and review of laboratory results Abnormal [facility] Osmolality Calc [Osmolality] 296 [facility] Potassium [Moles/Vol] 4.2 mmol/L 3.5 - 5.0 mmol/L [facility] Sodium [Moles/Vol] 137 mmol/L 135 - 145 mmol/L [facility] Urea nitrogen [Mass/Vol] 19 mg/dL 7 - 25 mg/dL [facility] Urea nitrogen/Creatinine [Mass ratio] 19 mg/mg [facility] GLUCOSE POCon 04-08-2022 Glucose [Mass/Vol] 179 mg/dL High 70 - 99 mg/dL [facility] Comment on above: RNonly -OrderPresent Interpretation and review of laboratory results Abnormal [facility] POC Sample Type CAPBL [facility] Test [facility] Glucose [Mass/Vol] 220 mg/dL High 70 - 99 mg/dL [facility] Interpretation and review of laboratory results Abnormal [facility] Test performed at [facility] the [facility]. [facility] Glucose [Mass/Vol] 124 mg/dL High 70 - 99 mg/dL [facility] Interpretation and review of laboratory results Abnormal [facility] POC Sample Type CAPBL [facility] Glucose [Mass/Vol] 106 mg/dL High 70 - 99 mg/dL [facility] Glucose [Mass/Vol] 40 mg/dL Critically low 70 - 99 mg/dL [facility] Glucose [Mass/Vol] 58 mg/dL Low 70 - 99 mg/dL [facility] Glucose [Mass/Vol] 122 mg/dL High 70 - 99 mg/dL [facility] Interpretation and review of laboratory results Abnormal [facility] POC Sample Type [facility] Test performed at [facility] the [facility]. [facility] Glucose [Mass/Vol] 352 mg/dL High 70 - 99 mg/dL [facility] Interpretation and review of laboratory results Abnormal [facility] P[facility] Sample Type [facility] Test performed at address [facility] the [facility]. [facility] Glucose [Mass/Vol] 271 mg/dL High 70 - 99 mg/dL [facility] Interpretation and review of laboratory results Abnormal [facility] POC Sample Type CAPBL [facility] Test performed at address of the patient encounter. [facility] MAGNESIUMon 04-08-2022 Interpretation and review of laboratory results Normal [facility] Magnesium [Mass/Vol] 1.9 mg/dL 1.6 - 2 .6 mg/dL [facility] No Panel Informationon 04-08 Interpretation and review of laboratory results Abnormal [facility] POC Sample Type CAPBL [facility] Test performed at address of the patient encounter. [facility] CBC,PLATELETSon 04-07-2022 Erythrocyte distribution width (RBC) [Ratio] 13.0 % 10.8 - 14.9 % [facility] Hematocrit (Bld) [Volume fraction] 35.8 % 34.9 - 44.3 % [facility] Hemoglobin (Bld) [Mass/Vol] 12.1 g/dL 11.4 - 15.2 g/dL [facility] Interpretation and review of laboratory results Abnormal [facility] MCH (RBC) [Entitic mass] 33.8 pg 25.9 - 33.9 pg [facility] MCHC (RBC) [Mass/Vol] 33.8 g/dL 31.4 - 35.9 g/dL [facility] MCV (RBC) [Entitic vol] 100.0 fL High 79.6 - 97.7 fL [facility] Platelet mean volume (Bld) [Entitic vol] 11.5 fL 8.5 - 12.2 fL [facility] Platelets (Bld) [#/Vol] 255 10*3/uL 150 - 393 K/uL [facility] RBC (Bld) [#/Vol] 3.58 10*6/uL Low [facility] WBC (Bld) [#/Vol] 5.57 10*3/uL 3.99 - 11. 19 K/uL [facility] CHEM 7 (LYTES,BUN,CREA,GLUC) on 04-07-2022 Anion gap [Moles/Vol] 12 mmol/L 7 - 17 mmol/L [facility] Chloride [Moles/Vol] 96 mmol/L Low 98 - 10 8 mmol/L [facility] CO2 [Moles/Vol] 33 mmol/L High 21 - 31 mmol/L [facility] Creatinine [Mass/Vol] 1.11 mg/dL 0.50 - 1.20 mg/dL [facility] GFR/1.73 sq M.predicted CKD-EPI (S/P/Bld) [Vol rate/Area] 65 - PINF [facility] Comment on above: Reported eGFR is bas ed on the CKD-EPI 2020 equation using creatinine, age, and sex. Glucose [Mass/Vol] 220 mg/dL High 70 - 99 mg/dL [facility] Interpretation and review of laboratory results Abnormal [facility] Osmolality Calc [Osmolality] 298 [facility] Potassium [Moles/Vol] 4.3 mmol/L 3.5 - 5.0 mmol/L [facility] Sodium [Moles/Vol] 137 mmol/L 135 - 145 mmol/L [facility] Urea nitrogen [Mass/Vol] 19 mg/dL 7 - 25 mg/dL [facility] Urea nitrogen/Creatinine [Mass ratio] 17 mg/mg [facility] GLUCOSE POCon 04-07-2022 Glucose [Mass/Vol] 162 mg/dL High 70 - 99 mg/dL [facility] Interpretation and review of laboratory results Abnormal [facility] POC Sample Type CAPBL [facility] Test performed at address of the patient encounter. [facility] Glucose [Mass/Vol] 137 mg/dL High 70 - 99 mg/dL [facility] Interpretation and review of laboratory results Abnormal [facility] POC Sample Type CAPBL [facility] Test performed at address of the patient encounter. [facility] Glucose [Mass/Vol] 226 mg/dL High 70 - 99 mg/dL [facility] Interpretation and review of laboratory results Abnormal [facility] POC Sample Type CAPBL [facility] Test performed at address of the patient encounter. [facility] Glucose [Mass/Vol] 298 mg/dL High 70 - 99 mg/dL [facility] Interpretation and review of laboratory results Abnormal [facility] POC Sample Type CAPBL [facility] Glucose [Mass/Vol] 404 mg/dL Critically high 70 - 9 9 mg/dL [facility] Comment on above: Notified RNread back Interpretation and review of laboratory results Abnormal [facility] POC Sample Type CAPBL [facility] Test performed at address of the patient encounter. [facility] Glucose [Mass/Vol] 357 mg/dL High 70 - 99 mg/dL [facility] Interpretation and review of laboratory results Abnormal [facility] POC Sample Type CAPBL [facility] Test performed at address of the patient encounter. [facility] Glucose [Mass/Vol] 267 mg/dL High 70 - 99 mg/dL [facility] Interpretation and review of laboratory results Abnormal [facility] POC Sample Type CAPBL [facility] Test performed at address of the patient encounter. [facility] Glucose [Mass/Vol] 91 mg/dL 70 - 99 mg/dL [facility] Glucose [Mass/Vol] 66 mg/dL Low 70 - 99 mg/dL [facility] Glucose [Mass/Vol] 261 mg/dL High 70 - 99 mg/dL [facility] MAGNESIUMon 04-07-2022 Interpretation and review of laboratory results Normal [facility] Magnesium [Mass/Vol] 1.9 mg/dL 1.6 - 2 .6 mg/dL [facility] MR Heart cine for blood flow velocity mapping W contrast Lucia 04-07-2022 [facility] CMR Report Name: KAYLEE TARIQ : 1980 Scan Date: 2022-04-07 13:32:23 Electronically signed by Shubham Skaggs 16:45:21 VITALS ====== HEIGHT: 61 in (154.94 cm) WEIGHT: 157.00 lbs (71.21 kgs) BSA: 1.70 m^2 BP: 95 / 52 mmHg BASELINE HR: 94 BPM FINAL IMPRESSION ====== Severely enlarged left ventricle with severely reduced systolic function. Ischemic cardiomyopathy with subendocardial to transmural fibrosis in all myocardial segments except basal inferior and inferolateral wall. SUMMARY ====== 41 year old female with h/o heart failure, diabetes, trisomy 21, hypothyroidism and concern for viral myocarditis; cardiac MRI for further evaluation. CARDIAC MRI LEFT VENTRICLE: Quantitative LVEF 19 %. LV cavity is severely enlarged. LV systolic function is severely decreased globally. VIABILITY: Late gadolinium enhancement demonstrates subendocardial to transmural fibrosis in all myocardial segments except basal inferior and inferolateral wall. RIGHT VENTRICLE: Quantitative RVEF 34 %. RV cavity size is normal. RV systolic function is moderately decreased globally. LV/RV SEPTUM: The ventricular septum is intact. LEFT ATRIUM: LA cavity size is normal. RIGHT ATRIUM: RA cavity size is normal. PERICARDIUM: There is a small pericardial effusion. There is a circumferential pericardial effusion. PLEURAL EFFUSION: There is a small left pleural effusion. There is a moderate right pleural effusion. AORTIC VALVE: Peak aortic valve velocity 1.23 m/sec. There is trivial aortic regurgitation. MITRAL VALVE: There is trivial mitral regurgitation. TRICUSPID VALVE: There is trivial tricuspid regurgitation. PULMONIC VALVE: There is trivial pulmonic regurgitation. AORTIC ROOT: The aortic root is normal on non MRA study OTHER FINDINGS: There is evidence of myocardial inflammation/edema on T2 mapping; however the findings are limited by motion and inadequate breath hold. ECV 41 % (normal < 31%) suggestive of diffuse interstitial expansion CORE EXAM ====== MEASUREMENTS -------- VOLUMETRIC ANALYSIS ------ . . LV Reference RV Reference +------+ + ------+ +- -----+ + EDV ml 243 (94-175) 103 (94-178) ml/m^2 143 (62-96) 61 (61-98) ESV ml 197 (27-64) 68 (25-77) ml/m^2 116 (17-36) 40 (17-43) CO L/min 3.37 2.55 L/min/m^2 1.98 1.50 MASS g 101 (70-142) g/m^2 60 (47-77) SV ml 46 (61-117) 35 (59-111) ml/m^2 27 (40-65) 20 (38-62) EF % 19 (57-75) 34 (51-75) '------+ + ------+ +- -----+ ' CARDIAC OUTPUT HR: 73 bpm LV DIMENSIONS ------ WALL THICKNESS - ANTEROSEPTAL: 0.9 cm WALL THICKNESS - INFEROLATERAL: 0.7 cm LV TAHIRA: 5.7 cm LV ESD: 4.6 cm LA DIMENSIONS (LV SYSTOLE) ------ AREA - 2 CHAMBER: 18 cm^2 LENGTH - 2 CHAMBER: 4.7 cm AREA - 4 CHAMBER: 17.4 cm^2 LENGTH - 4 CHAMBER: 6 cm VOLUME: 57 ml VOLUME NORMALIZED: 33.2 ml/m^2 RA DIMENSIONS (RV SYSTOLE) ------ AREA - 4 CHAMBER: 20 cm^2 LENGTH - 4 CHAMBER: 4.9 cm AORTIC ROOT DIMENSIONS ------ ANNULUS: 1.9 cm SINUS OF VALSALVA: 2.3 cm SINOTUBULAR JUNCTION: 2.2 cm EXTRACELLULAR VOLUME MEASUREMENT ------ PRE-CONTRAST T1 MYOCARDIUM: 1191 msec PRE-CONTRAST T1 LV CAVIT (more content not included)... CARDIOLOGY Shubham Skaggs MBBS - 04/07/2022 [facility] CMR Report Name: KAYLEE TARIQ Berry : 1980 Scan Date: 2022-04-07 13:32:23 Electronically signed by Shubham Skaggs 16:45:21 VITALS HEIGHT: 61 in (154.94 cm) WEIGHT: 157.00 lbs (71.21 kgs) BSA: 1.70 m^2 BP: 95 / 52 mmHg BASELINE HR: 94 BPM FINAL IMPRESSION Severely enlarged left ventricle with severely reduced systolic function. Ischemic cardiomyopathy with subendocardial to transmural fibrosis in all myocardial segments except basal inferior and inferolateral wall. SUMMARY 41 year old female with h/o heart failure, diabetes, trisomy 21, hypothyroidism and concern for viral myocarditis; cardiac MRI for further evaluation. CARDIAC MRI LEFT VENTRICLE: Quantitative LVEF 19 %. LV cavity is severely enlarged. LV systolic function is severely decreased globally. VIABILITY: Late gadolinium enhancement demonstrates subendocardial to transmural fibrosis in all myocardial segments except basal inferior and inferolateral wall. RIGHT VENTRICLE: Quantitative RVEF 34 %. RV cavity size is normal. RV systolic function is moderately decreased globally. LV/RV SEPTUM: The ventricular septum is intact. LEFT ATRIUM: LA cavity size is normal. RIGHT ATRIUM: RA cavity size is normal. PERICARDIUM: There is a small pericardial effusion. There is a circumferential pericardial effusion. PLEURAL EFFUSION: There is a small left pleural effusion. There is a moderate right pleural effusion. AORTIC VALVE: Peak aortic valve velocity 1.23 m/sec. There is trivial aortic regurgitation. MITRAL VALVE: There is trivial mitral regurgitation. TRICUSPID VALVE: There is trivial tricuspid regurgitation. PULMONIC VALVE: There is trivial pulmonic regurgitation. AORTIC ROOT: The aortic root is normal on non MRA study OTHER FINDINGS: There is evidence of myocardial inflammation/edema on T2 mapping; however the findings are limited by motion and inadequate breath hold. ECV 41 % (normal < 31%) suggestive of diffuse interstitial expansion CORE EXAM MEASUREMENTS VOLUMETRIC ANALYSIS ------ . . LV Reference RV Reference +------+ + ------+ +- -----+ + EDV ml 243 (94-175) 103 (94-178) ml/m^2 143 (62-96) 61 (61-98) ESV ml 197 (27-64) 68 (25-77) ml/m^2 116 (17-36) 40 (17-43) CO L/min 3.37 2.55 L/min/m^2 1.98 1.50 MASS g 101 (70-142) g/m^2 60 (47-77) SV ml 46 (61-117) 35 (59-111) ml/m^2 27 (40-65) 20 (38-62) EF % 19 (57-75) 34 (51-75) '------+ + ------+ +- -----+ ' CARDIAC OUTPUT HR: 73 bpm LV DIMENSIONS ------ WALL THICKNESS - ANTEROSEPTAL: 0.9 cm WALL THICKNESS - INFEROLATERAL: 0.7 cm LV TAHIRA: 5.7 cm LV ESD: 4.6 cm LA DIMENSIONS (LV SYSTOLE) ------ AREA - 2 CHAMBER: 18 cm^2 LENGTH - 2 CHAMBER: 4.7 cm AREA - 4 CHAMBER: 17.4 cm^2 LENGTH - 4 CHAMBER: 6 cm VOLUME: 57 ml VOLUME NORMALIZED: 33.2 ml/m^2 RA DIMENSIONS (RV SYSTOLE) ------ AREA - 4 CHAMBER: 20 cm^2 LENGTH - 4 CHAMBER: 4.9 cm AORTIC ROOT DIMENSIONS ------ ANNULUS: 1.9 cm SINUS OF VALSALVA: 2.3 cm SINOTUBULAR JUNCTION: 2.2 cm EXTRACELLULAR VOLUME MEASUREMENT ------ PRE-CONTRAST T1 MYOCARDIUM: 1191 msec PRE-CONTRAST T1 LV CAVITY: 1739 msec POST-CONTRAST T1 MYOCARDIUM: 447 msec POST-CONTRAST T1 LV CAVITY: 360 msec HEMATOCRIT: 35.8 % HEMATOCRIT DATE: ECV: 41 % SCAN INFO GENERAL SCANNER ------ 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 [facility] Radiology Study observation (narrative) [facility] MR Heart cine for blood flow velocity mapping W contrast IVOrdered By: Shubham Skaggs on 04-07-2022 [facility] Work Phone: No Panel Informationon 04-07 Interpretation and review of laboratory results Abnormal [facility] POC Sample Type CAPBL [facility] Test performed at address of the patient encounter. [facility] ACT* LOW RANGE, POCon 2021 ACT-LR 301 High [facility] ACT-LR 288 High [facility] B-TYPE NATRIURETIC PEPTIDE ( BRAIN)on 04-06-2022 Interpretation and review of laboratory results Abnormal [facility] Natriuretic peptide B (Bld) [Mass/Vol] 900 pg/mL High 0 - 100 pg/mL [facility] CBC,PLATELETSon 04-06-2022 Erythrocyte distribution width (RBC) [Ratio] 13.0 % 10.8 - 14.9 % [facility] Hematocrit (Bld) [Volume fraction] 35.5 % 34.9 - 44.3 % [facility] Hemoglobin (Bld) [Mass/Vol] 11.9 g/dL 11.4 - 15.2 g/dL [facility] Interpretation and review of laboratory results Abnormal [facility] MCH (RBC) [Entitic mass] 33.6 pg 25.9 - 33.9 pg [facility] MCHC (RBC) [Mass/Vol] 33.5 g/dL 31.4 - 35.9 g/dL [facility] MCV (RBC) [Entitic vol] 100.3 fL High 79.6 - 97.7 fL [facility] Platelet mean volume (Bld) [Entitic vol] 11.3 fL 8.5 - 12.2 fL [facility] Platelets (Bld) [#/Vol] 263 10*3/uL 150 - 393 K/uL [facility] RBC (Bld) [#/Vol] 3.54 10*6/uL Low [facility] WBC (Bld) [#/Vol] 4.98 10*3/uL 3.99 - 11. 19 K/uL [facility] CHEM 7 (LYTES,BUN,CREA,GLUC) on 04-06-2022 Anion gap [Moles/Vol] 8 mmol/L 7 - 17 mmol/L [facility] Chloride [Moles/Vol] 98 mmol/L 98 - 10 8 mmol/L [facility] CO2 [Moles/Vol] 35 mmol/L High 21 - 31 mmol/L [facility] Creatinine [Mass/Vol] 1.01 mg/dL 0.50 - 1.20 mg/dL [facility] GFR/1.73 sq M.predicted CKD-EPI (S/P/Bld) [Vol rate/Area] 73 - PINF [facility] Comment on above: Reported eGFR is bas ed on the CKD-EPI 2020 equation using creatinine, age, and sex. Glucose [Mass/Vol] 100 mg/dL High 70 - 99 mg/dL [facility] Interpretation and review of laboratory results Abnormal [facility] Osmolality Calc [Osmolality] 289 [facility] Potassium [Moles/Vol] 3.9 mmol/L 3.5 - 5.0 mmol/L [facility] Sodium [Moles/Vol] 137 mmol/L 135 - 145 mmol/L [facility] Urea nitrogen [Mass/Vol] 18 mg/dL 7 - 25 mg/dL [facility] Urea nitrogen/Creatinine [Mass ratio] 18 mg/mg [facility] CONTINUOUS CARDIAC MONITORIN G STRIPon 04-06-2022 [facility] Cardiac catheterization stud yon 04-06-2022 Impression: Successful PCI to ostial to proximal LAD with one drug eluting stent. Severely elevated LVEDP. Recommendations: She received aspirin, ticagrelor, and a tirofiban bolus intra-procedurally. She will complete a 6 hour tirofiban infusion. Afterward tirofiban will discontinue. Afterward she will continue DAPT uninterrupted for minimum one year. Once her DAPT course is completed she should remain on single agent antiplatelet therapy for life. Risk factor surveillance and modification. Inpatient heart failure management. - Access: Right radial artery with 6 FR sheath. Left Heart Catheterization / Coronary angiogram: It is a right dominant system. 1. The left main has minimal disease. 2. The LAD has one diagonal. Ostial and proximal serial lesions up to 99%. Mild disease elsewhere. Distal vessel fills late via right to left collaterals. 3. The LCx occludes proximally. Distal vessel fills late via right to left collaterals. 4. The RCA is moderate caliber. There is minimal coronary artery disease. 5. LVEDP is 42 mm Hg; there is no aortic valve gradient. Intervention: The left coronary was engaged with a 6 FR EBU 3.0 guide and a Colrain XT guidewire was advanced to the distal LAD. The ostial and proximal LAD lesions were stented with a 2.75 x 38 mm Xience MADHURI deployed at high pressure. Post stent angiography showed good angiographic result without complication and with ALIZE 3 flow throughout the vessel. IVUS was used post stent. The stent was post-dilated with a 3 x 20 mm NC balloon inflated to high pressure. Post dilation IVUS showed good stent deployment and apposition. Coronary Findings Diagnostic Dominance: Right Left Main: The vessel exhibits minimal luminal irregularities. Left Anterior Descending: There is mild diffuse disease throughout the vessel. Mid LAD filled by collaterals from RPDA. Ost LAD to Prox LAD lesion is 99% stenosed. Left Circumflex: Dist Cx filled by collaterals from RPAV. Prox Cx to Mid Cx lesion is 100% stenosed. Right Coronary Artery: The vessel exhibits minimal luminal irregularities. Intervention Ost LAD to Prox LAD lesion: PCI: - A CATHETER GUIDING 5FR EBU3 CURVE 100CM LAUNCHER NYLON interventional guide catheter was used to successfully engage the vessel. - A GUIDEWIRE COUGAR XT .014IN 300CM STRAIGHT VASCULAR was used to cross the lesion Stent placement - CORONARY STENT 38MM 2.75MM XIENCE SKYPOINT MULTI-LINK 145CM drug-eluting. Maximum pressure 20 alecia. Inflation time 30 sec. Post-Stent Angioplasty - BALLOON DILATATION NC TREK 3MM 20MM RAPID EXCHANGE. Multiple inflations were performed. Maximum pressure: 20 alecia. Inflation time: 10 sec. - The intervention was successful. No complications occurred at this lesion. - Intravascular ultrasound was performed on the lesion. Ultrasound supply: CATH ULTRND IVUS [place] [employer]. There is a 0% residual stenosis post intervention. PCI Risk Factors PCI Status: Urgent Heart Failure: Yes NYHA Class: Class IV Newly Diagnosed: Yes (within 12 months) Heart Failure type: Systolic heart failure Cardiovascular instability: Persistent ischemic symptoms and Acute heart failure symptoms CS frailty score: Very severely frail [facility] Cardiac catheterization stud yOrdered By: Kenneth Foster on 04-06-2022 [facility] Work Phone: GLUCOSE POCon 04-06-2022 Glucose [Mass/Vol] 114 mg/dL High 70 - 99 mg/dL [facility] Interpretation and review of laboratory results Abnormal [facility] POC Sample Type CAPBL [facility] Test performed at address of the patient encounter. [facility] Glucose [Mass/Vol] 93 mg/dL 70 - 99 mg/dL [facility] POC Sample Type CAPBL [facility] Test performed at address of the patient encounter. [facility] Glucose [Mass/Vol] 42 mg/dL Critically low 70 - 99 mg/dL [facility] Interpretation and review of laboratory results Abnormal [facility] POC Sample Type CAPBL [facility] Test performed at address of the patient encounter. [facility] Glucose [Mass/Vol] 285 mg/dL High 70 - 99 mg/dL [facility] Interpretation and review of laboratory results Abnormal [facility] POC Sample Type CAPBL [facility] Test performed at address of the patient encounter. [facility] Glucose [Mass/Vol] 130 mg/dL High 70 - 99 mg/dL [facility] Interpretation and review of laboratory results Abnormal [facility] POC Sample Type CAPBL [facility] Test performed at address of the patient encounter. [facility] MAGNESIUMon 04-06-2022 Interpretation and review of laboratory results Normal [facility] Magnesium [Mass/Vol] 1.8 mg/dL 1.6 - 2 .6 mg/dL [facility] No Panel Informationon 04-06 Interpretation and review of laboratory results Abnormal [facility] Test performed at address of the patient encounter. [facility] Heart limitedOrdered By: Yakov To on 04-06-2022 Avg e' pk yannick 0.08 m/s [facility] Work Phone: Avg E/e' ratio 8.58 [facility] Work Phone: Body surface area Derived from formula 1.75 m2 [facility] Work Phone: BP EF 22 % [facility] Work Phone: E wave decelartion time 197.07 msec [facility] Work Phone: e' lateral pk yannick 0.0760 m/s [facility] Work Phone: e' lateral pk yannick 0.08 m/s [facility] Work Phone: e' septal pk yannick 0.0778 m/s [facility]: e' septal pk yannick 0.08 m/s [facility] Work Phone: E/A ratio 0.83 [facility] Work Phone: E/e' lateral [facility] 8.68 [facility]: E/e' septal ratio 8.48 [facility] Work Phone: EF SP 2CH 23 [facility] Work Phone: EF SP 4CH 22 [facility] Work Phone: EST RAP 15.00 mmHg [facility] Work Phone: FS 20 % 28 - 44 % [facility] Work Phone: IVC ostium 1.86 cm [facility] Work Phone: IVS 0.92 cm [facility] Work Phone: LV EDV BP 200 mL [facility] Work Phone: LV EDV SP 2CH 208 mL [facility] Work Phone: LV EDV SP 4CH 170 mL [facility] Work Phone: LV ESV BP 157 mL [facility] Work Phone: LV ESV SP 2CH 160 mL [facility] Work Phone: LV ESV SP 4CH 132 mL [facility] Work Phone: LV mass 203.70 g [facility] Work Phone: LV Mass Index 116.4 g/m2 [facility] Work Phone: LV RWT 0.28 [facility] Work Phone: LV stroke volume BP (ml) 43 mL [facility] Work Phone: LV stroke volume index BP 24.57 mL/m2 [facility] Work Phone: LVIDD 5.95 cm [facility] Work Phone: LVIDS 4.77 cm [facility] Work Phone: MV pk A yannick 0.80 m/s [facility] Work Phone: MV pk E yannick 0.66 m/s [facility] Work Phone: [facility] ECHO LV BIPLANE SYSTOLIC VOLUME INDEX 89.71 mL/m2 [facility] Work Phone: [facility] ECHO LV BP DIASTOLIC VOLUME INDEX 114.29 mL/m2 [facility] Work Phone: PW 0.82 cm [facility] Work Phone: RV Area diastolic 14.81 cm2 [facility] Work Phone: RV Area systolic 9.00 cm2 [facility] Work [facility]: RV basal diam 2.83 cm [facility] Work Phone: RV Fractional area change 39.2 % [facility] Work Phone: RV long diam 10.62 cm [facility] Work Phone: RV mid diam 1.26 cm [facility] Work Phone: RV S' 16.00 cm/s [facility] Work Phone: TAPSE 1.88 cm [facility] Work Phone: [facility] Work Phone: Heart [facility] 2 Left ventricular size is mildly enlarged at end-systole. Severe hypokinesis to akinesis of all segments, sparing the basal inferior and basal inferolateral segments. Pattern of contractility and appearance of the ventricular function is most consistent with a non-ischemic cardiomyopathy, despite presence of known coronary disease. Ejection fraction +/-22% consistent with severe systolic dysfunction. Left atrium visually appears normal in size Right ventricle is normal in size and function. Right atrium visually appears normal in size Valve structures are consistent with age. Function not assessed Further study details described below Left Ventricle Chamber size is mildly enlarged at end systole. End-systolic volume is mildly increased. Normal wall thickness. Severe global hypokinesis. Wall motion abnormality: See wall scoring diagram. The ejection fraction is 22%. Ejection fraction is severely reduced. Diastolic function is consistent with impaired relaxation (grade I). Right Ventricle Chamber size is normal. Normal wall thickness. Segmental wall motion is normal. Systolic function is normal. Fractional area change equals 39.2%. Left Atrium Chamber size is normal. Right Atrium Chamber size is normal. IVC/SVC The inferior vena cava structure is abnormal. Mitral Valve Normal appearing leaflets. Leaflet mobility is normal. Mitral valve function not assessed. Tricuspid Valve Normal leaflets. Leaflet mobility is normal. No stenosis. Pulmonary artery systolic pressure (PASP) is unable to be estimated. Aortic Valve Trileaflet valve. Leaflet mobility is normal. Aortic valve function not assessed. Pulmonic Valve Pulmonic valve not assessed. Pericardium Trivial circumferential pericardial effusion. The effusion contains fluid. Left pleural effusion. Septum The atrial septum is normal. Aorta No dilation to extent seen. Study Details A limited echocardiography study (including color flow Doppler and limited spectral Doppler) was performed. Imaging system used: Corpor[employer]. Indications Indications for study: other - elevated troponin, admitted with viral illness. Wall Scoring Score Index: 1.88 The following segments are akinetic: apical anterior, apical septal, apical inferior, apical lateral and apex. The following segments are hypokinetic: mid anterior, mid anteroseptal, mid inferoseptal, mid inferior and mid anterolateral. All other segments are normal. [facility] Radiology Study observation (narrative) [facility] CBC,PLATELETSon 04-05-2022 Erythrocyte distribution width (RBC) [Ratio] 12.6 % 10.8 - 14.9 % [facility] Hematocrit (Bld) [Volume fraction] 34.6 % Low 34.9 - 44.3 % [facility] Hemoglobin (Bld) [Mass/Vol] 11.6 g/dL 11.4 - 15.2 g/dL [facility] Interpretation and review of laboratory results Abnormal [facility] MCH (RBC) [Entitic mass] 33.2 pg 25.9 - 33.9 pg [facility] MCHC (RBC) [Mass/Vol] 33.5 g/dL 31.4 - 35.9 g/dL [facility] MCV (RBC) [Entitic vol] 99.1 fL High 79.6 - 97.7 fL [facility] Platelet mean volume (Bld) [Entitic vol] 11.0 fL 8.5 - 12.2 fL [facility] Platelets (Bld) [#/Vol] 239 10*3/uL 150 - 393 K/uL [facility] RBC (Bld) [#/Vol] 3.49 10*6/uL Low [facility] WBC (Bld) [#/Vol] 4.73 10*3/uL 3.99 - 11. 19 K/uL [facility] CHEM 6 (LYTES, BUN CREA)on 06-05-2021 Anion gap [Moles/Vol] 11 mmol/L 7 - 17 mmol/L [facility] Chloride [Moles/Vol] 97 mmol/L Low 98 - 10 8 mmol/L [facility] CO2 [Moles/Vol] 31 mmol/L 21 - 31 mmol/L [facility] Creatinine [Mass/Vol] 0.93 mg/dL 0.50 - 1.20 mg/dL [facility] GFR/1.73 sq M.predicted CKD-EPI (S/P/Bld) [Vol rate/Area] 80 - PINF [facility] Comment on above: Reported eGFR is bas ed on the CKD-EPI 2020 equation using creatinine, age, and sex. Interpretation and review of laboratory results Abnormal [facility] Potassium [Moles/Vol] 4.4 mmol/L 3.5 - 5.0 mmol/L [facility] Sodium [Moles/Vol] 135 mmol/L 135 - 145 mmol/L [facility] Urea nitrogen [Mass/Vol] 15 mg/dL 7 - 25 mg/dL [facility] Urea nitrogen/Creatinine [Mass ratio] 16 mg/mg [facility] CHEM 7 (LYTES,BUN,CREA,GLUC) on 04-05-2022 Anion gap [Moles/Vol] 10 mmol/L 7 - 17 mmol/L [facility] Chloride [Moles/Vol] 100 mmol/L 98 - 10 8 mmol/L [facility] CO2 [Moles/Vol] 32 mmol/L High 21 - 31 mmol/L [facility] Creatinine [Mass/Vol] 0.80 mg/dL 0.50 - 1.20 mg/dL [facility] GFR/1.73 sq M.predicted CKD-EPI (S/P/Bld) [Vol rate/Area] - PINF [facility] Comment on above: Reported eGFR is bas ed on the CKD-EPI 2020 equation using creatinine, age, and sex. Glucose [Mass/Vol] 127 mg/dL High 70 - 99 mg/dL [facility] Interpretation and review of laboratory results Abnormal [facility] Osmolality Calc [Osmolality] 291 [facility] Potassium [Moles/Vol] 3.9 mmol/L 3.5 - 5.0 mmol/L [facility] Sodium [Moles/Vol] 138 mmol/L 135 - 145 mmol/L [facility] Urea nitrogen [Mass/Vol] 13 mg/dL 7 - 25 mg/dL [facility] Urea nitrogen/Creatinine [Mass ratio] 16 mg/mg [facility] CONTINUOUS CARDIAC MONITORIN G STRIPon 04-05-2022 [facility] GLUCOSE POCon 04-05-2022 Glucose [Mass/Vol] 167 mg/dL High 70 - 99 mg/dL [facility] Interpretation and review of laboratory results Abnormal [facility] POC Sample Type CAPBL [facility] Test performed at address of the patient encounter. [facility] Glucose [Mass/Vol] 208 mg/dL High 70 - 99 mg/dL [facility] Interpretation and review of laboratory results Abnormal [facility] POC Sample Type CAPBL [facility] Test performed at address of the patient encounter. [facility] Glucose [Mass/Vol] 307 mg/dL High 70 - 99 mg/dL [facility] Interpretation and review of laboratory results Abnormal [facility] POC Sample Type CAPBL [facility] Test performed at address of the patient encounter. [facility] Glucose [Mass/Vol] 149 mg/dL High 70 - 99 mg/dL [facility] Interpretation and review of laboratory results Abnormal [facility] POC Sample Type CAPBL [facility] Test performed at address of the patient encounter. [facility] Glucose [Mass/Vol] 139 mg/dL High 70 - 99 mg/dL [facility] Interpretation and review of laboratory results Abnormal [facility] POC [facility] Test performed at address of the patient encounter. [facility] HEMOGLOBIN [id number] By: Antonella Maxwell on 04-05-2022 Average glucose Estimated from glycated hemoglobin (Bld) [Mass/Vol] 174 mg/dL [facility] HbA1c (Bld) [Mass fraction] 7.7 % High 4.7 - 5.6 % [facility] Interpretation and review of laboratory results Abnormal [facility] LIPID PANEL W CALCULATED LDL on 04-05-2022 Cholesterol [Mass/Vol] 89 mg/dL NINF - 200 mg/dL [facility] Comment on above: [<200 mg/dL: Desirab le] [200-239 mg/dL: Borderline High] [>239 mg/dL: High] Cholesterol in HDL [Mass/Vol] 27 mg/dL Low 40 - PINF mg/dL [facility] Comment on above: [<40 mg/dL: Low (Hig h Risk)] [>59 mg/dL: High (Low Risk)] Cholesterol in HDL [Mass/Vol] 62 mg/dL NINF - 130 mg/dL [facility] Cholesterol in LDL [Mass/Vol] 46 mg/dL 0 - 99 mg/dL [facility] Comment on above: [<100 mg/dL: Optimal ] [100-129 mg/dL: Near Optimal] [130-159 mg/dL: Borderline High] [160-189 mg/dL: High] [>189 mg/dL: Very High] Cholesterol.total/Ch olesterol in HDL [Mass ratio] 3.3 {ratio} NINF - 4.5 [facility] Interpretation and review of laboratory results Abnormal [facility] Triglyceride [Mass/Vol] 80 mg/dL NINF - 150 mg/dL [facility] Comment on above: [<150 mg/dL: Desirab le] [150-199 mg/dL: Borderline] [200-499 mg/dL: High] [>500 mg/dL: Very High] [facility] MAGNESIUMon 04-05-2022 Interpretation and review of laboratory results Normal [facility] Magnesium [Mass/Vol] 2.2 mg/dL 1.6 - 2 .6 mg/dL [facility] No Panel Informationon 04-05 [facility] CBC,PLATELETSon 04-04-2022 Erythrocyte distribution width (RBC) [Ratio] 12.9 % 10.8 - 14.9 % [facility] Hematocrit (Bld) [Volume fraction] 34.6 % Low 34.9 - 44.3 % [facility] Hemoglobin (Bld) [Mass/Vol] 11.4 g/dL 11.4 - 15.2 g/dL [facility] Interpretation and review of laboratory results Abnormal [facility] MCH (RBC) [Entitic mass] 33.3 pg 25.9 - 33.9 pg [facility] MCHC (RBC) [Mass/Vol] 32.9 g/dL 31.4 - 35.9 g/dL [facility] MCV (RBC) [Entitic vol] 101.2 fL High 79.6 - 97.7 fL [facility] Platelet mean volume (Bld) [Entitic vol] 11.4 fL 8.5 - 12.2 fL [facility] Platelets (Bld) [#/Vol] 253 10*3/uL 150 - 393 K/uL [facility] RBC (Bld) [#/Vol] 3.42 10*6/uL Low [facility] WBC (Bld) [#/Vol] 4.69 10*3/uL 3.99 - 11. 19 K/uL [facility] CHEM 7 (LYTES,BUN,CREA,GLUC) on 04-04-2022 Anion gap [Moles/Vol] 13 mmol/L 7 - 17 mmol/L [facility] Chloride [Moles/Vol] 101 mmol/L 98 - 10 8 mmol/L [facility] CO2 [Moles/Vol] 24 mmol/L 21 - 31 mmol/L [facility] Creatinine [Mass/Vol] 0.69 mg/dL 0.50 - 1.20 mg/dL [facility] GFR/1.73 sq M.predicted CKD-EPI (S/P/Bld) [Vol rate/Area] - PINF [facility] Comment on above: Reported eGFR is bas ed on the CKD-EPI 2020 equation using creatinine, age, and sex. Glucose [Mass/Vol] 311 mg/dL High 70 - 99 mg/dL [facility] Interpretation and review of laboratory results Abnormal [facility] Osmolality Calc [Osmolality] 296 [facility] Potassium [Moles/Vol] 4.4 mmol/L 3.5 - 5.0 mmol/L [facility] Sodium [Moles/Vol] 134 mmol/L Low 135 - 145 mmol/L [facility] Urea nitrogen [Mass/Vol] 13 mg/dL 7 - 25 mg/dL [facility] Urea nitrogen/Creatinine [Mass ratio] 19 mg/mg [facility] CONTINUOUS CARDIAC MONITORIN G STRIPOrdered By: Unassigned Pacs on 04-04-2022 [facility] Work Phone: Cardiac catheterization stud yon 04-04-2022 [facility] Radiology Study observation (narrative) [facility] Radiology Study observation (narrative) [facility] FERRITINon 04-04-2022 Ferritin [Mass/Vol] 193.3 ng/mL 10.0 - 2 91.0 ng/mL [facility] Interpretation and review of laboratory results Normal [facility] GLUCOSE POCon 04-04-2022 Glucose [Mass/Vol] 198 mg/dL High 70 - 99 mg/dL [facility] Glucose [Mass/Vol] 205 mg/dL High 70 - 99 mg/dL [facility] Glucose [Mass/Vol] 202 mg/dL High 70 - 99 mg/dL [facility] Interpretation and review of laboratory results Abnormal [facility] POC Sample Type CAPBL [facility] Test performed at address of the patient encounter. [facility] Glucose [Mass/Vol] 327 mg/dL High 70 - 99 mg/dL [facility] Interpretation and review of laboratory results Abnormal [facility] POC Sample Type CAPBL [facility] Test performed at address of the patient encounter. [facility] Glucose [Mass/Vol] 307 mg/dL High 70 - 99 mg/dL [facility] Comment on above: Notified RNread back Interpretation and review of laboratory results Abnormal [facility] POC Sample Type CAPBL [facility] Test performed at address of the patient encounter. [facility] HIGH SENSITIVITY TROPONIN I - SINGLE ORDEROrdered By: Andria Marie on 04-04-2022 Interpretation and review of laboratory results Abnormal [facility] Troponin I.cardiac DL <= 0.01 ng/mL [Mass/Vol] 07956 ng/L Critically high NINF - 34 ng/L [facility] Comment on above: Suggestive of myocar dial injury [facility] IRON/IRON BINDING/TRANSFERRI Non 04-04-2022 Interpretation and review of laboratory results Abnormal [facility] Iron [Mass/Vol] 25 ug/dL Low [facility] Iron binding capacity [Mass/Vol] 163 Low [facility] Iron saturation [Mass fraction] 15 % Low 20 - 55 % [facility] Transferrin [Mass/Vol] 130 mg/dL Low 200 - 400 mg/dL [facility] MAGNESIUMon 04-04-2022 Interpretation and review of laboratory results Abnormal [facility] Magnesium [Mass/Vol] 1.5 mg/dL Low 1.6 - 2 .6 mg/dL [facility] No Panel Informationon 04-04 Interpretation and review of laboratory results Abnormal [facility] POC Sample Type CAPBL [facility] Test performed at address of the patient encounter. [facility] POTASSIUMon 04-04-2022 Interpretation and review of laboratory results Normal [facility] Potassium [Moles/Vol] 3.7 mmol/L 3.5 - 5.0 mmol/L [facility] T4 FREEon 04-04-2022 Free T4 [Mass/Vol] 1.08 ng/dL 0.89 - 1. 76 ng/dL [facility] Interpretation and review of laboratory results Normal [facility] TSH W/FT4 REFLEXon Interpretation and review of laboratory results Abnormal [facility] TSH Qn 5.310 m[IU]/L High [facility] B-TYPE NATRIURETIC PEPTIDE ( BRAIN)on 04-03-2022 Interpretation and review of laboratory results Abnormal [facility] Natriuretic peptide B (Bld) [Mass/Vol] 985 pg/mL High 0 - 100 pg/mL [facility] CALCIUMon 04-03-2022 Calcium [Mass/Vol] 7.9 mg/dL Low 8.6 - 10. 5 mg/dL [facility] CBC AND ELECTRONIC DIFFon Basophils (Bld) [#/Vol] 0.04 10*3/uL 0.00 - 0.15 K/uL [facility] Basophils/100 WBC (Bld) 0.9 % [facility] Differential cell count method Nom (Bld) Electronic Differential [facility] Eosinophils (Bld) [#/Vol] 0.13 10*3/uL 0.00 - 0.42 K/uL [facility] Eosinophils/100 WBC (Bld) 2.9 % [facility] Erythrocyte distribution width (RBC) [Ratio] 12.8 % 10.8 - 14.9 % [facility] Hematocrit (Bld) [Volume fraction] 34.9 % 34.9 - 44.3 % [facility] Hemoglobin (Bld) [Mass/Vol] 11.7 g/dL 11.4 - 15.2 g/dL [facility] Immature granulocytes (Bld) [#/Vol] K/uL NINF - 0.08 K/uL [facility] Immature granulocytes/100 WBC (Bld) 0.7 % [facility] Interpretation and review of laboratory results Abnormal [facility] Lymphocytes (Bld) [#/Vol] 1.25 10*3/uL 1.16 - 3.51 K/uL [facility] Lymphocytes/100 WBC (Bld) 28.2 % [facility] MCH (RBC) [Entitic mass] 33.9 pg 25.9 - 33.9 pg [facility] MCHC (RBC) [Mass/Vol] 33.5 g/dL 31.4 - 35.9 g/dL [facility] MCV (RBC) [Entitic vol] 101.2 fL High 79.6 - 97.7 fL [facility] Monocytes (Bld) [#/Vol] 0.53 10*3/uL 0.22 - 0.87 K/uL [facility] Monocytes/100 WBC (Bld) 11.9 % [facility] Neutrophils (Bld) [#/Vol] 2.46 10*3/uL 1.64 - 7.28 K/uL [facility] Nucleated RBC/100 WBC (Bld) [Ratio] 0.0 % [facility] Platelet mean volume (Bld) [Entitic vol] 11.6 fL 8.5 - 12.2 fL [facility] Platelets (Bld) [#/Vol] 245 10*3/uL 150 - 393 K/uL [facility] RBC (Bld) [#/Vol] 3.45 10*6/uL Low [facility] Segmented neutrophils/100 WBC (Bld) 55.4 % [facility] WBC (Bld) [#/Vol] 4.44 10*3/uL 3.99 - 11. 19 K/uL [facility] CHEM 7 (LYTES,BUN,CREA,GLUC) on 04-03-2022 Anion gap [Moles/Vol] 13 mmol/L 7 - 17 mmol/L [facility] Chloride [Moles/Vol] 100 mmol/L 98 - 10 8 mmol/L [facility] CO2 [Moles/Vol] 25 mmol/L 21 - 31 mmol/L [facility] Creatinine [Mass/Vol] 0.86 mg/dL 0.50 - 1.20 mg/dL [facility] GFR/1.73 sq M.predicted CKD-EPI (S/P/Bld) [Vol rate/Area] 88 - PINF [facility] Comment on above: Reported eGFR is bas ed on the CKD-EPI 2020 equation using creatinine, age, and sex. Glucose [Mass/Vol] 283 mg/dL High 70 - 99 mg/dL [facility] Osmolality Calc [Osmolality] 293 [facility] Potassium [Moles/Vol] 3.8 mmol/L 3.5 - 5.0 mmol/L [facility] Sodium [Moles/Vol] 134 mmol/L Low 135 - 145 mmol/L [facility] Urea nitrogen [Mass/Vol] 14 mg/dL 7 - 25 mg/dL [facility] Urea nitrogen/Creatinine [Mass ratio] 16 mg/mg [facility] GLUCOSE POCon 04-03-2022 Glucose [Mass/Vol] 238 mg/dL High 70 - 99 mg/dL [facility] Comment on above: Notified RNread back Interpretation and review of laboratory results Abnormal [facility] POC Sample Type CAPBL [facility] Test performed at address of the patient encounter. [facility] HEPATIC FUNCTION PANELon Albumin [Mass/Vol] 3.0 g/dL Low 3.5 - 5.0 g/dL [facility] ALP [Catalytic activity/Vol] 104 U/L 32 - 126 U/L [facility] ALT [Catalytic activity/Vol] 31 U/L 9 - 48 U/L [facility] AST [Catalytic activity/Vol] 40 U/L High 10 - 39 U/L [facility] Bilirubin [Mass/Vol] 0.5 mg/dL NINF - 1.5 mg/dL [facility] Bilirubin.direct [Mass/Vol] 0.2 mg/dL NINF - 0.3 mg/dL [facility] Protein [Mass/Vol] 5.7 g/dL Low 6.4 - 8.3 g/dL [facility] MAGNESIUMon 04-03-2022 Magnesium [Mass/Vol] 1.5 mg/dL Low 1.6 - 2 .6 mg/dL [facility] No Panel Informationon 04-03 Interpretation and review of laboratory results Abnormal [facility] PHOSPHATE, INORGANICon 04-03 Interpretation and review of laboratory results Normal [facility] Phosphate [Mass/Vol] 2.3 mg/dL 2.2 - 4 .6 mg/dL [facility] PT,INR,PTTon 04-03-2022 aPTT Coag (PPP) [Time] 31.6 s [facility] INR Coag (Bld) [Relative time] 1.1 {INR} 0.9 - 1.1 [facility] Interpretation and review of laboratory results Normal [facility] PT Coag (PPP) [Time] 14.1 s [facility] T3 (Triiodothyronine) Totalo n 10-02-2020 T3 Total 83 ng/dL Normal 80 - 200 [facility] Comment on above: Order Comment: Relea se to patient->Automatic [id number]&Blood Result Comment: Test Performed by: [facility] [address] [place] [address] Broker Associate: Adonis White M.D. Ph.D.; CLIA# [id number] Performed By: #### T 3TOT #### [place] [address] TSH with reflex T4FRon 10-01 TSH with reflex T4FR 1.926 uIU/mL Normal 0.350-5.500 A [facility] Comment on above: Order Comment: Relea se to patient->Automatic [id number]&Blood Performed By: #### T SHR #### [facility] [address] [place] [address] WOUND CULTUREon 11-26-2019 WOUND CULTURE GRAM STAIN RARE WBC'S FEW GRAM POSITIVE COCCI ORGANISM 1: STAPHYLOCOCCUS AUREUS QUANTITATION MANY STAPHYLOCOCCUS AUREUS: REACTION AMPICILLIN <2 N/R AMP/SULBACTAM (UNASYN) <8/4 S AUGMENTIN (AMOX/K CLVULANATE) <4/2 S AZITHROMYCIN <2 S CEFAZOLIN <8 S CEFOXITIN SCREEN <4 NEG CLINDAMYCIN <0.5 S ERYTHROMYCIN <0.25 S GENTAMICIN <4 S LINEZOLID <2 S OXACILLIN <0.25 S PIPERACILLIN/TAZOBAC WRIGHT <4 S RIFAMPIN <1 S TETRACYCLINE <4 S TRIMETH/SULFA <0.5/9.5 S MEROPENEM <4 S DAPTOMYCIN <1 S CEFTAROLINE <0.5 S Normal [facility] Comment on above: Performed By: #### M [id number] #### [facility] [address] [place] [id number] NMRLIPon 07-14-2018 Cholesterol in HDL mass conc 10.6 mg/dL Normal [facility] ([place]) Comment on above: Result Comment: Refe rence range: >=9.2 Unit: nm Performed By: Broker Associate: CHACHO#: Phone#: Performed By: #### B MP, AST, ALT, GFR, TSH, VIDH #### [address] [address] Cholesterol in HDL mass conc 12.6 mg/dL Normal [facility] ([place]) Comment on above: Result Comment: Refe rence range: >=4.8 Unit: umol/L Performed By: Broker Associate: CHACHO#: Phone#: Performed By: #### B MP, AST, ALT, GFR, TSH, VIDH #### [place] [address] Cholesterol in HDL mass conc 24.9 mg/dL Low [facility] ([place]) Comment on above: Result Comment: Refe rence range: >=30.5 Unit: umol/L Performed By: Broker Associate: CHACHO#: Phone#: Performed By: #### B MP, AST, ALT, GFR, TSH, VIDH #### [place] [address] Cholesterol mass conc 196 mg/dL Normal [facility] ([place]) Comment on above: Result Comment: Refe rence range: 100 to 199 Unit: mg/dL Performed By: Broker Associate: CHACHO#: Phone#: Performed By: #### B MP, AST, ALT, GFR, TSH, VIDH #### [place] [address] NMR HDL Chol 67 Normal [facility] ([place]) Comment on above: Result Comment: Refe rence range: >39 Unit: mg/dL Performed By: Broker Associate: CHACHO#: Phone#: Performed By: #### B MP, AST, ALT, GFR, TSH, VIDH #### [place] [address] NMR Large VLDL-P <0.8 [facility] ([place]) Comment on above: Result Comment: Refe rence range: <=2.7 Unit: nmol/L Performed By: Broker Associate: CHACHO#: Phone#: Performed By: #### B MP, AST, ALT, GFR, TSH, VIDH #### [place] [address] NMR LDL Chol 117 High [facility] ([place]) Comment on above: Result Comment: Refe rence range: 0 to 99 Unit: mg/dL (NOTE) LDL-C is inaccurate if patient is non-fasting. Performed By: Broker Associate: CHACHO#: Phone#: Performed By: #### B MP, AST, ALT, GFR, TSH, VIDH #### [place] [address] NMR LDL Particle Number [id number] [facility] ([place]) Comment on above: Result Comment: Refe rence range: <1000 Unit: nmol/L Performed By: Broker Associate: CHACHO#: Phone#: Performed By: #### B MP, AST, ALT, GFR, TSH, VIDH #### [place] [address] NMR LDL Size 20.7 Normal [facility] ([place]) Comment on above: Result Comment: Refe rence range: >20.5 Unit: nm (NOTE) Small LDL-P and LDL Size are associated with CVD risk, but not after LDL-P is taken into account. These assays were developed and their performance characteristics determined by [employer]. These assays have not been cleared by the [place] Food and Drug Administration. The clinical utility of these laboratory values have not been fully established. Performed By: Broker Associate: CHACHO#: Phone#: Performed By: #### B MP, AST, ALT, GFR, TSH, VIDH #### [place] [address] NMR LP/IR Score <25 Normal [facility] ([place]) Comment on above: Result Comment: Refe rence range: <=45 (NOTE) LP-IR Score is inaccurate if patient is non-fasting. The LP-IR score is a laboratory developed index that has been associated with insulin resistance and diabetes risk and should be used as one component of a physician's clinical assessment. Neither the LP-IR score nor the subclasses listed above have been cleared by the [place] Food and Drug Administration. Test performed at: [address] [address] Adonis Ludwig MD Test performed by: [facility], [address] [facility],[address], [place] [address] Performed By: Broker Associate: CHACHO#: Phone#: Performed By: #### B MP, AST, ALT, GFR, TSH, VIDH #### [place] [address] NMR Small LDL-P <90 Normal [facility] ([place]) Comment on above: Result Comment: Refe rence range: <=527 Unit: nmol/L Performed By: Broker Associate: CHACHO#: Phone#: Performed By: #### B MP, AST, ALT, GFR, TSH, VIDH #### [place] [address] NMR Source SERUM RED TOP Normal [facility] ([place]) Comment on above: Result Comment: Perf ormed By: [facility] [employer] [address] [place] [address] Broker Associate: Suhas Meadows#: [id number] Phone#: Performed By: #### B MP, AST, ALT, GFR, TSH, VIDH #### [place] [address] NMR Trig 62 Normal [facility] ([place]) Comment on above: Result Comment: Refe rence range: 0 to 149 Unit: mg/dL Performed By: Broker Associate: CHACHO#: Phone#: Performed By: #### B MP, AST, ALT, GFR, TSH, VIDH #### [place] [address] NMR VLDL Size Test Not Performed Normal [facility] ([place]) Comment on above: Result Comment: Unit : nm (NOTE) VLDL levels not sufficient for VLDL size determination. Performed By: Broker Associate: CHACHO#: Phone#: Performed By: #### B MP, AST, ALT, GFR, TSH, VIDH #### [place] [address] .GFRon 07-08-2018 GFR Non- >60 Normal [facility] ([place]) Comment on above: Result Comment: GFR Population mean for , Non- Americans Ages 20-29 = 116 mL/min/1.73 sq.m. Ages 30-39 = 107 mL/min/1.73 sq.m. Ages 40-49 = 99 mL/min/1.73 sq.m. Ages 50-59 = 93 mL/min/1.73 sq.m. Ages 60-69 = 85 mL/min/1.73 sq.m. Ages 70+ = 75 mL/min/1.73 sq.m. Chronic Kidney Disease: Less than 60 mL/min/1.73 square meters End Stage Renal Disease: Less than 15 mL/min/1.73 square meters Performed By: #### B MP, AST, ALT, GFR, TSH, VIDH #### [address] [address] GFR >60 Normal [facility] ([place]) Comment on above: Result Comment: GFR Population mean for , Non- Americans Ages 20-29 = 116 mL/min/1.73 sq.m. Ages 30-39 = 107 mL/min/1.73 sq.m. Ages 40-49 = 99 mL/min/1.73 sq.m. Ages 50-59 = 93 mL/min/1.73 sq.m. Ages 60-69 = 85 mL/min/1.73 sq.m. Ages 70+ = 75 mL/min/1.73 sq.m. Chronic Kidney Disease: Less than 60 mL/min/1.73 square meters End Stage Renal Disease: Less than 15 mL/min/1.73 square meters Performed By: #### B MP, AST, ALT, GFR, TSH, VIDH #### [address] [address] ALT/SGPTon 07-08-2018 ALT enzyme act/vol 17 U/L Normal 10-49 [facility] ([place]) Comment on above: Performed By: #### A ST, BMP, TSH, ALT, GFR, VIDH, NMRLIP #### [address] [address] Rose 07-08-2018 AST enzyme act/vol 19 U/L Normal 8-34 [facility] ([place]) Comment on above: Performed By: #### A ST, BMP, TSH, ALT, GFR, VIDH, NMRLIP #### [address] [address] BMPon 07-08-2018 Creatinine mass conc 0.79 mg/dL Normal 0.50-1.20 [facility] ([place]) Comment on above: Performed By: #### A ST, BMP, TSH, ALT, GFR, VIDH, NMRLIP #### [address] [address] Urea nitrogen/Creatinine mass ratio 20.3 ratio Normal 10.0-22.0 [facility] ([place]) Comment on above: Performed By: #### A ST, BMP, TSH, ALT, GFR, VIDH, NMRLIP #### [place] [address] Calcium mass conc 8.6 mg/dL Normal 8.4-10.1 [facility] ([place]) Comment on above: Performed By: #### A ST, BMP, TSH, ALT, GFR, VIDH, NMRLIP #### [place] [address] Chloride molar conc 102 mmol/L Normal 98-110 [facility] ([place]) Comment on above: Performed By: #### A ST, BMP, TSH, ALT, GFR, VIDH, NMRLIP #### [place] [address] CO2 molar conc 28 mmol/L Normal 22-32 [facility] ([place]) Comment on above: Performed By: #### A ST, BMP, TSH, ALT, GFR, VIDH, NMRLIP #### [place] [address] Electrolyte Balance 6.0 mEq/L Normal 4.0-15.0 [facility] ([place]) Comment on above: Performed By: #### A ST, BMP, TSH, ALT, GFR, VIDH, NMRLIP #### [place] [address] Glucose mass conc 223 mg/dL High 70-110 [facility] ([place]) Comment on above: Performed By: #### A ST, BMP, TSH, ALT, GFR, VIDH, NMRLIP #### [place] [address] Potassium molar conc 4.7 mmol/L Normal 3.5-5.0 [facility] ([place]) Comment on above: Performed By: #### A ST, BMP, TSH, ALT, GFR, VIDH, NMRLIP #### [place] [address] Sodium molar conc 136 mmol/L Normal 136-145 [facility] ([place]) Comment on above: Performed By: #### A ST, BMP, TSH, ALT, GFR, VIDH, NMRLIP #### [place] [address] Urea nitrogen mass conc 16.0 mg/dL Normal 8.0-22.0 [facility] ([place]) Comment on above: Performed By: #### A ST, BMP, TSH, ALT, GFR, VIDH, NMRLIP #### [place] [id number] MALBRon 07-08-2018 U Creatinine 16.0 mg/dL Normal [facility] ([place]) Comment on above: Performed By: #### B MP, AST, ALT, GFR, TSH, VIDH #### [place] [address] U Microalb <500 Normal [facility] ([place]) Comment on above: Performed By: #### B MP, AST, ALT, GFR, TSH, VIDH #### [place] [address] U Ratio Alb/Cre Unable to Calculate Normal 0.0-24.9 [facility] ([place]) Comment on above: Result Comment: Unab le to calculate this test result accurately. Results used to calculate this test are outside the reportable range. Performed By: #### B MP, AST, ALT, GFR, TSH, VIDH #### [place] [address] TSHon 07-08-2018 Thyrotropin Qn 4.600 mcIU/mL High 0.360-3.740 [facility] ([place]) Comment on above: Result Comment: Plea note as of 11/28/16 new pediatric reference intervals were added for this test. Performed By: #### A ST, BMP, TSH, ALT, GFR, VIDH, NMRLIP #### [place] [id number] VIDHon 07-08-2018 Vit. D 25-Hydroxy 40 ng/mL Normal [facility] ([place]) Comment on above: Result Comment: Inte rpretive Values Based on Total 25(OH)D: Severe Deficiency <20 ng/mL Mild to Moderate Deficiency 20-30 ng/mL Optimum Levels 30-100 ng/mL Toxicity Possible >100 ng/mL Performed By: #### B MP, AST, ALT, GFR, TSH, VIDH #### [address] [address] .GFRon 2017 GFR Non- 51 ml/min/1.73sqm Normal [facility] ([place]) Comment on above: Result Comment: GFR Population mean for , Non- Americans Ages 20-29 = 116 mL/min/1.73 sq.m. Ages 30-39 = 107 mL/min/1.73 sq.m. Ages 40-49 = 99 mL/min/1.73 sq.m. Ages 50-59 = 93 mL/min/1.73 sq.m. Ages 60-69 = 85 mL/min/1.73 sq.m. Ages 70+ = 75 mL/min/1.73 sq.m. Chronic Kidney Disease: Less than 60 mL/min/1.73 square meters End Stage Renal Disease: Less than 15 mL/min/1.73 square meters Performed By: #### B MP, AST, ALT, GFR, TSH, VIDH #### [address] [address] GFR >60 Normal [facility] ([place]) Comment on above: Result Comment: GFR Population mean for , Non- Americans Ages 20-29 = 116 mL/min/1.73 sq.m. Ages 30-39 = 107 mL/min/1.73 sq.m. Ages 40-49 = 99 mL/min/1.73 sq.m. Ages 50-59 = 93 mL/min/1.73 sq.m. Ages 60-69 = 85 mL/min/1.73 sq.m. Ages 70+ = 75 mL/min/1.73 sq.m. Chronic Kidney Disease: Less than 60 mL/min/1.73 square meters End Stage Renal Disease: Less than 15 mL/min/1.73 square meters Performed By: #### B MP, AST, ALT, GFR, TSH, VIDH #### [address] [address] ALT/SGPTon 2017 ALT enzyme act/vol 21 U/L Normal 10-49 [facility] ([place]) Comment on above: Performed By: #### B MP, AST, ALT, GFR, TSH, VIDH #### [place] [address] Rose 2017 AST enzyme act/vol 21 U/L Normal 8-34 [facility] ([place]) Comment on above: Performed By: #### B MP, AST, ALT, GFR, TSH, VIDH #### [place] [address] BMPon 2017 Calcium mass conc 8.2 mg/dL Low 8.4-10.1 [facility] ([place]) Comment on above: Performed By: #### B MP, AST, ALT, GFR, TSH, VIDH #### [place] [address] Chloride molar conc 103 mmol/L Normal 98-110 [facility] ([place]) Comment on above: Performed By: #### B MP, AST, ALT, GFR, TSH, VIDH #### [place] [address] CO2 molar conc 28 mmol/L Normal 22-32 [facility] ([place]) Comment on above: Performed By: #### B MP, AST, ALT, GFR, TSH, VIDH #### [place] [address] Creatinine mass conc 1.20 mg/dL Normal 0.50-1.20 [facility] ([place]) Comment on above: Performed By: #### B MP, AST, ALT, GFR, TSH, VIDH #### [place] [address] Electrolyte Balance 8.0 mEq/L Normal 4.0-15.0 [facility] ([place]) Comment on above: Performed By: #### B MP, AST, ALT, GFR, TSH, VIDH #### [place] [address] Glucose mass conc 127 mg/dL High 70-110 [facility] ([place]) Comment on above: Performed By: #### B MP, AST, ALT, GFR, TSH, VIDH #### [place] [address] Potassium molar conc 4.7 mmol/L Normal 3.5-5.0 [facility] ([place] Comment on above: Performed By: #### B MP, AST, ALT, GFR, TSH, VIDH #### [place] [id number] Sodium molar conc 139 mmol/L Normal 136-145 [facility] ([place]) Comment on above: Performed By: #### B MP, AST, ALT, GFR, TSH, VIDH #### [place] [address] Urea nitrogen mass conc 13.0 mg/dL Normal 8.0-22.0 [facility] ([place] Comment on above: Performed By: #### B MP, AST, ALT, GFR, TSH, VIDH #### [place] [address] Urea nitrogen/Creatinine mass ratio 10.8 ratio Normal 10.0-22.0 [facility] ([place]) Comment on above: Performed By: #### B MP, AST, ALT, GFR, TSH, VIDH #### [place] [address] TSHon 2017 Thyrotropin Qn 5.670 mcIU/mL High 0.360-3.740 [facility] ([place]) Comment on above: Result Comment: Plea se note ? as of 11/28/16 new pediatric reference intervals were added for this test. Performed By: #### B MP, AST, ALT, GFR, TSH, VIDH #### [place] [id number] VIDHon 2017 Vit. D 25-Hydroxy 37 ng/mL Normal [facility] ([place]) Comment on above: Result Comment: Inte rpretive Values Based on Total 25(OH)D: Severe Deficiency <20 ng/mL Mild to Moderate Deficiency 20-30 ng/mL [facility] Levels 30-100 ng/mL Toxicity Possible >100 ng/mL Performed By: #### B MP, AST, ALT, GFR, TSH, VIDH #### [facility] [address] [place] [address] Office Visiton 01-01-2017 Documentation of current medications (procedure) Done Invalid Interpretation Code [facility] Work Phone: Tobacco use [facility] Never smoker Invalid Interpretation Code [facility] Work Phone: Lab Report: Bedside Glucoseo n 05-28-2015 Glucose 305 mg/dL High 70-110 [facility] Work Phone: Lab Report: BGMon 08-29-2013 GE use only - for [employer] import when terms are not otherwise specified 370 mg/dL High 70-110 [facility] Work Phone: Lab Report: CBCDon 4 Absolute Neutrophil count 3.4 X10 3/UL Normal 2.0-7.7 [facility] Work Phone: Basophils/100 leukocytes 0.7 % Normal 0-1 [facility] Work Phone: Eosinophils/100 leukocytes 2.3 % Normal 0-5 [facility] Work Phone: Erythrocytes (RBC) 4.20 10*6/uL Normal 4.2-5.4 [facility] Work Phone: Hematocrit (HCT) 40.6 % Normal 37-47 [facility] Work Phone: Hemoglobin (HGB) 14.0 g/dL Normal 12.0-15.0 [facility] Work Phone: Lymphocytes/100 leukocytes 31.8 % Normal 19-41 [facility] Work Phone: MCH 33.3 pg High 27.0-32.0 [facility] Work Phone: MCHC 34.5 G/GL Normal 32-36 [facility] Work Phone: MCV 96.7 fL Normal 81-99 [facility] Work Phone: Monocytes/100 leukocytes 7.9 % Normal 0-10 [facility] Work Phone: Neutrophils/100 leukocytes 56.5 % Normal 47-70 [facility] Work Phone: Platelets 227 10*3/mm3 Normal 150-450 [facility] Work Phone: PMV by Renee 10.1 fL Normal 6.2-12.0 [facility] Work Phone: WBC (Leukocytes) 6.0 10*3/uL Normal 4.4-11.0 [facility] Work Phone: Vital Signs Date Time Vital Sign Value Performing Clinician Facility 01-13-2024 09:03-0400 Body height 152.4 cm Diane Fraga MD, PhD Work Phone: [facility] 01-13-2024 09:03-0400 Body mass index (BMI) [Ratio] 26.37 kg/m2 Diane Fraga MD, PhD Work Phone: [facility] 01-13-2024 09:03-0400 Body weight 61.24 kg Diane Fraga MD, PhD Work Phone: [facility] 01-13-2024 09:03-0400 Diastolic blood pressure 56 mm[Hg] Diane Fraga MD, PhD Work Phone: [facility] 01-13-2024 09:03-0400 Heart rate 53 /min Diane Fraga MD, PhD Work Phone: [facility] 01-13-2024 09:03-0400 Respiratory rate 18 /min Diane Fraga MD, PhD Work Phone: [facility] 01-13-2024 09:03-0400 SaO2% (BldA) [Mass fraction] 99 % Diane Fraga MD, PhD Work Phone: [facility] 01-13-2024 09:03-0400 Systolic blood pressure 122 mm[Hg] Diane Fraga MD, PhD Work Phone: [facility] 10-20-2023 12:36-0400 Body height 152.4 cm Elizabeth Maxwell MD Work Phone: [facility] 10-20-2023 12:36-0400 Body mass index (BMI) [Ratio] 26.89 kg/m2 Elizabeth Maxwell MD Work Phone: [facility] 10-20-2023 12:36-0400 Body weight 62.46 kg Elizabeth Maxwell MD Work Phone: [facility] 10-20-2023 12:36-0400 Diastolic blood pressure 54 mm[Hg] Elizabeth Maxwell MD Work Phone: [facility] 10-20-2023 12:36-0400 Heart rate 67 /min Elizabeth Maxwell MD Work Phone: [phone] [address] 10-20-2023 12:36-0400 SaO2% (BldA) [Mass fraction] 97 % Elizabeth Maxwell MD Work Phone: [facility] 10-20-2023 12:36-0400 Systolic blood pressure 88 mm[Hg] Elizabeth Maxwell MD Work Phone: [phone] [address] 04-22-2023 11:23-0500 Body height 152.4 cm Tammy OSULLIVAN Work Phone: [facility] 04-22-2023 11:23-0500 Body mass index (BMI) [Ratio] 26.7 kg/m2 Tammy Solares [employer] DES[employer] Work Phone: [facility] 04-22-2023 11:23-0500 Body weight 62.01 kg Tammy Solares [employer] DES[employer] Work Phone: [facility] 04-22-2023 11:23-0500 Diastolic blood pressure 62 mm[Hg] Tammy Solares [employer] DES[employer] Work Phone: [facility] 04-22-2023 11:23-0500 Heart rate 57 /min Tammy Solares [employer] Work Phone: [facility] 04-22-2023 11:23-0500 SaO2% (BldA) [Mass fraction] 91 % Tammy Solares [employer] DES[employer] Work Phone: [facility] 04-22-2023 11:23-0500 Systolic blood pressure 98 mm[Hg] Tammy Solares [employer] DES[employer] Work Phone: [facility] 10-19-2022 10:16-0400 Diastolic blood pressure 53 mm[Hg] Elizabeth Maxwell MD Work Phone: [facility] Comment on above: auto buff pressure 10-19-2022 10:16-0400 Systolic blood pressure 85 mm[Hg] Elizabeth Maxwell MD Work Phone: [facility] Comment on above: auto buff pressure 10-19-2022 10:09-0400 Body height 152.4 cm Elizabeth Maxwell MD Work Phone: [facility] 10-19-2022 10:09-0400 Body mass index (BMI) [Ratio] 24.8 kg/m2 Elizabeth Maxwell MD Work Phone: [facility] 10-19-2022 10:09-0400 Body weight 57.61 kg Elizabeth Maxwell MD Work Phone: [facility] 10-19-2022 10:09-0400 Heart rate 70 /min Elizabeth Maxwell MD Work Phone: [facility] 10-19-2022 10:09-0400 Respiratory rate 18 /min Elizabeth Maxwell MD Work Phone: [facility] 10-19-2022 10:09-0400 SaO2% (BldA) [Mass fraction] 97 % Elizabeth Maxwell MD Work Phone: [facility] 07-09-2022 14:01-0500 Body height 152.4 cm Tammy Solares [employer] Work Phone: [facility] 07-09-2022 14:01-0500 Body mass index (BMI) [Ratio] 25.74 kg/m2 Tammy Solares [employer] Work Phone: [facility] 07-09-2022 14:01-0500 Body weight 59.78 kg Tammy Solares [employer] Work Phone: [facility] 07-09-2022 14:01-0500 Diastolic blood pressure 64 mm[Hg] Tammy Solares [employer] Work Phone: [facility] Comment on above: h 07-09-2022 14:01-0500 Heart rate 55 /min Tammy Solares [employer] Work Phone: [facility] 07-09-2022 14:01-0500 SaO2% (BldA) [Mass fraction] 97 % Tammy Solares [employer] Work Phone: [facility] 07-09-2022 14:01-0500 Systolic blood pressure 94 mm[Hg] Tammy Solares [employer] Work Phone: [facility] Comment on above: h 07-09-2022 13:21-0500 Body height 152.4 cm Tammy Solares [employer] Work Phone: [facility] 07-09-2022 13:21-0500 Body mass index (BMI) [Ratio] 26.74 kg/m2 Tammy Solares [employer] Work Phone: [phone] [place] [address] 07-09-2022 13:21-0500 Body weight 62.1 kg Tammy Solares [employer] Work Phone: [phone] [address] 07-09-2022 13:21-0500 Diastolic blood pressure 60 mm[Hg] Tammy Solares [employer] Work Phone: [phone] [place] [address] 07-09-2022 13:21-0500 Systolic blood pressure 78 mm[Hg] Tammy Solares [employer] Work Phone: [phone] [place] [address] 06-11-2022 10:23-0500 Body height 152.4 cm Tammy Solares [employer] Work Phone: 5([phone] [address] 06-11-2022 10:23-0500 Body mass index (BMI) [Ratio] 26.76 kg/m2 Tammy Solares [employer] Work Phone: 5(570)[phone] [place] [address] 06-11-2022 10:23-0500 Body weight 62.14 kg Tammy Solares [employer] Work Phone: 2(459)[phone] [place] [address] 06-11-2022 10:23-0500 Diastolic blood pressure 60 mm[Hg] Tammy Solares [employer] Work Phone: [phone])[phone] [place] [address] 06-11-2022 10:23-0500 Heart rate 65 /min Tammy Solares [employer] Work Phone: 8(107)[phone] [address] 06-11-2022 10:23-0500 SaO2% (BldA) [Mass fraction] 99 % Tammy Solares [employer] Work Phone: [facility] 06-11-2022 10:23-0500 Systolic blood pressure 78 mm[Hg] Tammy Solares [employer] Work Phone: [facility] 05-13-2022 10:34-0500 Body height 152.4 cm Elizabeth Maxwell MD Work Phone: [facility] 05-13-2022 10:34-0500 Body mass index (BMI) [Ratio] 26.21 kg/m2 Elizabeth Maxwell MD Work Phone: [facility] 05-13-2022 10:34-0500 Body weight 60.87 kg Elizabeth Maxwell MD Work Phone: [facility] 05-13-2022 10:34-0500 Diastolic blood pressure 42 mm[Hg] Elizabeth Maxwell MD Work Phone: [facility] 05-13-2022 10:34-0500 Heart rate 52 /min Elizabeth Maxwell MD Work Phone: [facility] 05-13-2022 10:34-0500 SaO2% (BldA) [Mass fraction] 98 % Elizabeth Maxwell MD Work Phone: [facility] 05-13-2022 10:34-0500 Systolic blood pressure 62 mm[Hg] Elizabeth Maxwell MD Work Phone: [facility] 04-09-2022 14:10-0500 Body temperature 97.5 [degF] Timothy Marks MD Work Phone: [facility] 04-09-2022 14:10-0500 Diastolic blood pressure 64 mm[Hg] Timothy Marks MD Work Phone: [facility] 04-09-2022 14:10-0500 Heart rate 80 /min Timothy Marks MD Work Phone: [facility] 04-09-2022 14:10-0500 Systolic blood pressure 89 mm[Hg] Timothy Marks MD Work Phone: 4([phone] [place] [address] 04-09-2022 13:32-0500 Respiratory rate 16 /min Timothy Marks MD Work Phone: 7(320)[phone] [place] [address] 04-09-2022 11:58-0500 SaO2% (BldA) [Mass fraction] 97 % Timothy Marks MD Work Phone: 8(967)[phone] [place] [address] 04-09-2022 05:45-0500 Body mass index (BMI) [Ratio] 27.53 kg/m2 Timothy Marks MD Work Phone: 7(317)[phone] [place] [address] 04-09-2022 05:45-0500 Body weight 66.1 kg Timothy Marks MD Work Phone: 1(429)[phone] [place] [address] 04-06-2022 10:02-0500 Body height 154.9 cm Timothy Marks MD Work Phone: 3([phone] [address] 08-25-2013 08:33-0400 BP Diastolic 84 mm[Hg] [facility] Work Phone: 08-25-2013 08:33-0400 BP Systolic 124 mm[Hg] [facility] Work Phone: 08-25-2013 08:33-0400 Height 152.4 cm [facility] Work Phone: 08-25-2013 08:33-0400 Weight 65.77 kg Andrez Hill [facility] Work Phone: Encounters Encounter Date Encounter Type Care Provider Facility Start: 01-13-2024 [facility] Start: 01-13-2024 End: 01-13-2024 Patient encounter procedure Gabriela Zhao RD Work Phone: [facility] [place] Comment on above: Type 1 diabetes nirmal itus with hyperglycemia (Primary Dx) Start: 01-13-2024 End: 01-13-2024 Office consultation new/estab patient 80 min Diane Fraga MD, PhD Work Phone: [facility] [place] Comment on above: Type 1 diabetes nirmal itus with hyperglycemia (Primary Dx); Insulin pump status; Type 1 diabetes mellitus with hypoglycemia and without coma; Acquired autoimmune hypothyroidism; Chronic kidney disease, stage 3b Start: 01-13-2024 [facility] Facility:[facility] Start: 10-20-2023 [facility] Facility:[facility] Start: 10-20-2023 End: 10-20-2023 Office outpatient visit 25 minutes Elizabeth Maxwell MD Work Phone: [facility] [place] Comment on above: Systolic heart failu re, chronic (Primary Dx); Hyperlipidemia, unspecified hyperlipidemia type; PVC's (premature ventricular contractions); Type 1 diabetes mellitus with other circulatory complication Start: 10-20-2023 [facility] Facility:[facility] Start: 06-02-2023 Telephone encounter Margarita Ricardo RN [facility] [place] Comment on above: Cardiac Clearance Start: 04-22-2023 [facility] Facility:[facility] Start: 04-22-2023 End: 04-22-2023 Office outpatient visit 15 minutes Tammy Solares APRN-APPAREL DESIGNER Work Phone: [facility] [place] Comment on above: Systolic heart failu re, chronic (Primary Dx); Shortness of breath Start: 04-22-2023 [facility] Facility:[facility] Start: 10-19-2022 Telephone encounter Mariely Amaya RN [facility] [place] Comment on above: Results Start: 10-19-2022 End: 10-19-2022 Office outpatient visit 25 minutes Elizabeth Maxwell MD Work Phone: [facility] [place] Comment on above: Systolic heart failu re, chronic (Primary Dx); Hyperlipidemia, unspecified hyperlipidemia type; Coronary artery disease involving hoonah coronary artery of hoonah heart without angina pectoris Start: 07-09-2022 End: 07-09-2022 Office outpatient visit 25 minutes Tammy Solares [employer] Work Phone: [facility] [place] Comment on above: Systolic heart failu re, chronic (Primary Dx) Start: 07-09-2022 End: 07-09-2022 Subsequent hospital visit by physician Tammy Solares [employer] Work Phone: [facility] [place] Start: 06-11-2022 End: 06-11-2022 Office outpatient visit 15 minutes Tammy Solares [employer] Work Phone: [facility] [place] Comment on above: Systolic heart failu re, chronic (Primary Dx) Start: 06-08-2022 Hernandez Amaya RN [facility] [place] Start: 05-13-2022 End: 05-13-2022 Office outpatient visit 40 minutes Elizabeth Maxwell MD Work Phone: [facility] [place] Comment on above: Coronary artery dise ase involving hoonah coronary artery of hoon[place] heart without angina pectoris (Primary Dx); Hyperlipidemia, unspecified hyperlipidemia type; Chronic systolic heart failure; Symptomatic hypotension Start: 05-06-2022 End: 05-06-2022 Remote physiologic monitoring 1st 20 min month Hailey Lei RD Work Phone: [facility] Comment on above: Type 1 diabetes nirmal itus with hyperglycemia (Primary Dx) Start: 04-14-2022 End: 04-14-2022 Office outpatient visit 15 minutes Jaison Abrams [employer] Work Phone: [facility] [place] Comment on above: Chronic systolic hea rt failure (Primary Dx) Start: 04-03-2022 End: 04-09-2022 Evaluation and management of inpatient Timothy Marks MD Work Phone: Comment on above: Acute systolic heart failure Start: 07-08-2018 End: 07-12-2018 Patient encounter procedure BALJIT ARCEO Facility:A Start: 2017 End: 07-21-2017 Patient encounter procedure BALJIT ARCEO Facility:A Procedures Date Procedure Procedure Detail Performing Clinician Start: 07-09-2022 Echo tthrc r-t 2d w/wom-mode compl spec&colr d Tammy Solares [employer] Work Phone: Start: 05-06-2022 DEVICE EVALUATION Histo rical Provider Start: 04-09-2022 Glucose measurement, felicity Marks MD Work Phone: Start: 04-09-2022 Glucose measurement, felicity Marks MD Work Phone: Start: 04-09-2022 Glucose measurement, felicity Marks MD Work Phone: Start: 04-09-2022 Glucose measurement, felicity Marks MD Work Phone: Start: 04-09-2022 CONTINUOUS CARDIAC MONITORING STRIP Other Other Start: 04-09-2022 Glucose measurement, felicity Marks MD Work Phone: Start: 04-09-2022 Assay of magnesium Coop johnathan Farris MD Work Phone: Start: 04-08-2022 End: 04-08-2022 Glucose measurement, felicity Marks MD Work Phone: Start: 04-08-2022 End: 04-08-2022 Glucose measurement, felicity Marks MD Work Phone: Start: 04-08-2022 Glucose measurement, felicity Marks MD Work Phone: Start: 04-08-2022 Glucose measurement, felicity Marks MD Work Phone: Start: 04-08-2022 Glucose measurement, felicity Marks MD Work Phone: Start: 04-08-2022 Glucose measurement, felicity Marks MD Work Phone: Start: 04-08-2022 Assay of magnesium Ann Crane MD Work Phone: Start: 04-07-2022 Glucose measurement, blood Timothy Marks MD Work Phone: Start: 04-07-2022 Glucose measurement, felicity Marks MD Work Phone: Start: 04-07-2022 Glucose measurement, felicity Marks MD Work Phone: Start: 04-07-2022 Glucose measurement, felicity Marks MD Work Phone: Start: 04-07-2022 Cardiac mri w/wo con trast & further seq Mariely Ribeiro [employer] Work Phone: Start: 04-07-2022 Glucose measurement, felicity Marks MD Work Phone: Start: 04-07-2022 Glucose measurement, felicity Marks MD Work Phone: Start: 04-07-2022 Glucose measurement, felicity Marks MD Work Phone: Start: 04-07-2022 Assay of magnesium Ann Crane MD Work Phone: Start: 04-06-2022 CONTINUOUS CARDIAC MONITORING STRIP Other Other Start: 04-06-2022 CONTINUOUS CARDIAC MONITORING STRIP Other Other Start: 04-06-2022 Glucose measurement, felicity Marks MD Work Phone: Start: 04-06-2022 End: 04-06-2022 Glucose measurement, felicity Marks MD Work Phone: Start: 04-06-2022 End: 04-06-2022 Glucose measurement, felicity Marks MD Work Phone: Start: 04-06-2022 Echo transthorc r-t 2d w/wo m-mode rec f-up/lmtd Mariely Ribeiro [employer] Work Phone: Start: 04-06-2022 Glucose measurement, felicity Marks MD Work Phone: Start: 04-06-2022 Assay of magnesium Ann Crane MD Work Phone: Start: 04-05-2022 Glucose measurement, blood Timothy Marks MD Work Phone: Start: 04-05-2022 Glucose measurement, blood Timothy Marks MD Work Phone: Start: 04-05-2022 Electrolyte panel Karina Farris MD Work Phone: Start: 04-05-2022 Glucose measurement, blood Timothy Marks MD Work Phone: Start: 04-05-2022 CONTINUOUS CARDIAC MONITORING STRIP Other Other Start: 04-05-2022 Glucose measurement, felicity Marks MD Work Phone: Start: 04-05-2022 Glucose measurement, blood Timothy Marks MD Work Phone: Start: 04-05-2022 Hemoglobin glycosylated a1c Mariely Ribeiro [employer] Work Phone: Start: 04-05-2022 Lipid panel Felix ordaz MD Work Phone: Start: 04-04-2022 Glucose measurement, felicity Marsk MD Work Phone: Start: 04-04-2022 CONTINUOUS CARDIAC MONITORING STRIP Other Other Start: 04-04-2022 Assay of magnesium Ann Crane MD Work Phone: Start: 04-04-2022 Glucose measurement, blood Timothy Marks MD Work Phone: Start: 04-04-2022 Glucose measurement, blood Timothy Marks MD Work Phone: Start: 04-04-2022 Cath placement & njx coronary art angio img s&i Elizabeth Maxwell MD Work Phone: Start: 04-04-2022 Endoluminal coronary ivus oct i&r initial vessel Elizabeth Maxwell MD Work Phone: Start: 04-04-2022 Prq trluml coronary stent w/angio one art/brnch Elizabeth Maxwell MD Work Phone: Start: 04-04-2022 End: 04-04-2022 ACT* LOW RANGE, POC Timothy Marks MD Work Phone: Start: 04-04-2022 Cardiac catheterization Elizabeth Maxwell MD Work Phone: Start: 04-04-2022 Glucose measurement, blood Elizabeth Maxwell MD Work Phone: Start: 04-04-2022 Assay of free thyroxine Mariely Connie Ribeiro [employer] Work Phone: Start: 04-04-2022 Glucose measurement, blood Elizabeth Maxwell MD Work Phone: Start: 04-04-2022 Blood count complete automated Ariaden Galo [employer] Work Phone: Start: 04-03-2022 Bilirubin direct Luis Felipe Crane MD Work Phone: Start: 04-03-2022 CBC AND ELECTRONIC DIFF Ariadne Crane MD Work Phone: Start: 04-03-2022 Complete blood count with white cell differential, automated Ariadne Crane MD Work Phone: Start: 04-03-2022 Glucose measurement, blood Timothy Marks MD Work Phone: Start: 01-01-2017 End: 01-15-2017 Drain/inject, joint/bursa Andrez Hill Work Phone: Plan of Treatment Date Care Activity Detail Author Start: 01-12-2025 Lipid panel LIPIDS [facility] Start: 01-12-2025 Thyroid stimulating hormone measurement TSH [facility] Start: 01-12-2025 Urine screening for protein URINE MICROALBUMIN TEST [facility] Start: 10-19-2024 Lipid panel LIPIDS [facility] Start: 07-14-2024 End: 07-14-2024 Patient encounter procedure 07/14/2024 10:30 AM EST Office Visit [facility] [place] [address] [place] [address] Yoana Rico [employer] [address] [place] [address] [facility] [place] Start: 05-24-2024 End: 05-24-2024 Patient encounter procedure 05/24/2024 12:30 PM EST Office Visit [facility] [place] [address] [place], [place] [id number] Elizabeth Maxwell MD [address] [place] [address] [facility] [place] Start: 01-16-2024 COVID-19 VACCINE ( season) COVID-19 VACCINE () [facility] Start: 01-16-2024 Influenza vaccination [facility] Start: 10-20-2023 End: 10-19-2024 Cardiac telemetry MOBILE CARDIAC TELEMETRY ECG Routine PVC's (premature ventricular contractions) Expected: 10/20/2023, Expires: 10/19/2024 [facility] Comment on above: Expected: 10/20/2023, Expires: Start: 10-20-2023 Lipid panel LIPIDS [facility] Start: 10-20-2023 End: 10-20-2023 Patient encounter procedure [facility] [place] Start: 04-22-2023 End: 04-22-2023 Patient encounter procedure 04/22/2023 Office Visit Cardiovascular Medicine Tammy Solares, [employer] [address] [place] [address] [facility] [place] Start: 04-09-2023 Potassium [Moles/volume] in Serum or Plasma POTASSIUM [facility] Start: 04-05-2023 Lipid panel LIPIDS [facility] Start: 04-04-2023 Thyroid stimulating hormone measurement TSH [facility] Start: 01-15-2023 COVID-19 VACCINE () COVID-19 VACCINE () [facility] Start: 01-15-2023 Influenza vaccination [facility] Start: 10-22-2022 End: 10-23-2023 Basic metabolic 2000 panel - Serum or Plasma BASIC METABOLIC PANEL Lab Routine Systolic heart failure, chronic Expected: 10/22/2022, Expires: 10/23/2023 [facility] Comment on above: Expected: 10/22/2022, Expires: Start: 10-19-2022 End: 10-19-2022 Patient encounter procedure 10/19/2022 Office Visit Cardiovascular Medicine Elizabeth Maxwell MD [address] [place], [place] [id number] [facility] [place] Start: 10-03-2022 Hemoglobin A1c measurement HBA1C TEST [facility] Start: 09-24-2022 End: 09-24-2022 Patient encounter procedure 09/24/2022 Office Visit Electrophysiology Darian Claudio MBBS [address] [place] [id number] [facility] [place] Start: 08-10-2022 End: 08-10-2022 Patient encounter procedure 08/10/2022 Office Visit Cardiovascular Medicine Iván Law MD [facility] [address] [place] [address] [facility] [place] Start: 2022 Screening for malignant neoplasm of breast MAMMOGRAM SCREENING DISCUSSION [facility] Start: 07-09-2022 End: 07-09-2022 Patient encounter procedure [facility] [place] Start: 06-16-2022 End: 06-16-2022 Patient encounter procedure [facility] Start: 06-11-2022 End: 06-11-2023 Echocardiography ECHOCARDIOGRAM Echocardiography Routine Systolic heart failure, chronic Expected: 06/11/2022, Expires: 06/11/2023 [facility] Comment on above: Expected: 06/11/2022, Expires: Start: 06-11-2022 End: 06-11-2022 Patient encounter procedure 06/11/2022 Office Visit Cardiovascular Medicine Tammy Solares, VAL[employer]TER[employer] [address] [place] [address] [address], [address] [place] [phone] [facility] [place] Start: 05-13-2022 End: 05-13-2022 Patient encounter procedure 05/13/2022 Office Visit Cardiovascular Medicine Elizabeth Maxwell MD [address] [place] [address] [facility] [place] Start: 05-06-2022 End: 05-06-2022 Patient encounter procedure 05/06/2022 Office Visit Cardiovascular Elizabeth Donis MD [address] [place] [address] [facility] [place] Start: 04-21-2022 End: 04-21-2022 Telemedicine consultation with patient 04/21/2022 [facility]medicine [facility] Start: 04-14-2022 End: 04-14-2022 Patient encounter procedure 04/14/2022 Office Visit Cardiovascular Medicine Jaison Abrams, [employer] [address] [place] [phone] [facility] [place] Start: 09-01-2022 Influenza vaccination INFLUENZA VACCINE (#1) [facility] Start: 06-27-2021 COVID-19 VACCINE (4 - Booster for Moderna series) COVID-19 VACCINE (4 - Booster for Moderna series) [facility] Start: 12-19-2009 PNEUMOCOCCAL VACCINE SERIES (2 - PCV) PNEUMOCOCCAL VACCINE SERIES (2 - PCV) [facility] Start: 12-19-2009 PNEUMOCOCCAL VACCINE SERIES (2 of 2 - PCV) PNEUMOCOCCAL VACCINE SERIES (2 of 2 - PCV) [facility] Start: 07-18-2003 Screening for malignant neoplasm of cervix CERVICAL CANCER SCREENING DISCUSSION [facility] Start: 2001 Hepatitis B vaccination HEP B VACCINE (1 of 3 - 19+ 3-dose series) [facility] Start: 2001 Third diphtheria, tetanus and acellular pertussis (DTaP) vaccination TDAP (ADULT) [facility] Start: 1997 HIV screening HIV SCREENING DISCUSSION [facility] Start: 1982 Diabetic foot examination DIABETIC FOOT EXAM [facility] Start: 1982 Glaucoma screening EYE EXAM [facility] Start: 1982 Hepatitis B vaccination HEP B VACCINE (1 of 3 - 3-dose series) [facility] Start: 1982 Hepatitis C screening HEPATITIS C VIRUS SCREENING [facility] Start: 1982 Tetanus vaccination TETANUS [facility] Start: 1982 Urine screening for protein URINE MICROALBUMIN TEST [facility] Ambulatory ECG W[place] ECG (OFFICE R EAD ONLY) [place] - OFFICE PERFORMED Routine Systolic heart failure, chronic Ordered: 07/09/2022 [facility] Comment on above: Ordered: 07/09/2022 Continuous glucose monitoring analysis i&r W[place] CONTINUOUS GLUCOSE MONITORING ANALYSIS I&R [place] Charge Routine Type 1 diabetes mellitus with hyperglycemia Insulin pump status Type 1 diabetes mellitus with hypoglycemia and without coma Ordered: 02/06/2024 [facility] Comment on above: Ordered: 02/06/2024 Ecg routine ecg w/le ast 12 lds w/i&r W[place] ECG ROUTINE ECG W/LEAST 12 LDS W/I&R [place] - OFFICE PERFORMED Routine Systolic heart failure, chronic Ordered: 10/20/2023 [facility] Comment on above: Ordered: 10/20/2023 End: 02-05-2025 Hemoglobin A1c/Hemoglobin.total in Blood HEMOGLOBIN A1C Lab Routine Type 1 diabetes mellitus with hyperglycemia Insulin pump status Type 1 diabetes mellitus with hypoglycemia and without coma 4 Occurrences starting 02/06/2024 until 02/05/2025 [facility] Comment on above: 4 Occurrences starting 02/06/2024 until 02/05/2025 End: 01-10-2025 POCT HEMOGLOBIN A1C POCT HEMOGLOBIN A1C Point of Care Testing Routine Type 1 diabetes mellitus with hyperglycemia 5 Occurrences starting 01/13/2024 until 01/10/2025 [facility] Comment on above: 5 Occurrences starting 01/13/2024 until 01/10/[address] [facility] Work Phone: Immunizations Immunization Date Immunization Notes Care Provider Fa cili 05-02-2021 COVID-19 vaccine, Honorio Serrato, 100 mcg/0.5 mL Timothy Marks MD Work Phone: [facility] 07-31-2020 COVID-19 vaccine, Honorio Serrato, 100 mcg/0.5 mL Timothy Marks MD Work Phone: [facility] 07-04-2020 COVID-19 vaccine, Honorio Serrato, 100 mcg/0.5 mL Timothy Marks MD Work Phone: [facility] Work Phone: 03-09-2011 influenza virus vacc ine, unspecified formulation Timothy Marks MD Work Phone: [facility] 12-19-2008 pneumococcal polysaccharide vaccine, 23 valent Timothy Marks MD Work Phone: [facility] Payers Date Payer Category Payer Medicaid MEDICAID MEDICAI D [id number] 2022-Present [address] [place] [address] [id number] 2022 Medicare [id number] 2022 Medicaid [id number] 2022 Medicare [id number] 2016 Unknown [id number] 2016 Unknown [id number] 1982 Unknown [id number] 1982 Unknown [id number] 1982 Unknown [id number] 1982 Unknown [id number] 1982 Unknown [id number] 1982 Unknown [id number] 1982 Unknown [id number] 1982 Unknown [id number] 1982 Unknown [id number] Social History Date Type Detail Facility Start: 04-04-2022 Tobacco smoking stat us WIIS Never smoked tobacco [facility] Start: 04-04-2022 Tobacco use and exposure Smokeless tobacco non-user [facility] Start: 1980 Sex Assigned At Not on file [facility] Start: 03-28-2022 End: 04-07-2022 Exposure to SARS-CoV-2 (event) Not sure [facility] Start: 04-14-2022 End: 01-13-2024 Alcohol intake Current drinker of alcohol (finding) [facility] Start: 04-26-2022 End: 07-09-2022 Exposure to SARS-CoV-2 (event) Unable to assess [facility] Start: 04-22-2023 End: 01-13-2024 History of Social function [facility] Start: 04-22-2023 End: 01-13-2024 Tobacco use panel [facility] (I/We) worried wheth er (my/our) food would run out before (I/we) got money to buy more. Never true [facility] Medical Equipment Procedure Code Equipment Code Equipment Origin al Text Equipment Identifier Dates Coronary Stent 3 8mm 2.75mm Xience Sk[employer]oint Multi-Link 145cm - [id number] Start: 04-04-2022 As directed up t o 7X daily for 90 day supply of #600. DxE10.65 [id number] Start: 01-13-2024 As directed up t o 6X daily with insulin pens in the event of pump failure DxE10.65 please hold for patient to request [id number] Start: 01-13-2024 Clinical Notes 10-01-2020 to 01-13-2024 Gabriela Zhao, RD - 01/13/2024 10:30 AM Brent Fraga MD, PhD - 01/13/2024 9:20 AM Brent Fraga MD, PhD - 01/13/2024 9:20 AM EDTPatient InstructionsPatient Instructions(Routine) Note Date & Type Note Facility 01-13-2024 History of Presen t illness Narrative Diabetes Self-Management Training: [facility] Endocrinology, Diabetes & Metabolism Insulin Pump Review: Omnipod 5 with Novolog u100 insulin Kaylee Berry Tariq is a 43 y.o. female who lives with Type 1 Diabetes (T1D) diagnosed in 1995. Kaylee is transferring her care from [place]. Patient seen today in clinic following appointment with Dr. Fraga. She has a history of Down's Syndrome. Accompanied today by her mother. Patient typically boluses at the start of the meal. She keeps a written record of all food intake and insulin doses. Patients mother states that she does miss some boluses for snacks. Pods are worn on the arms. Patient's mother feels that the pump settings are currently working well. Learning objective identified by Kaylee: Unspecified Hypoglycemia & Hyperglycemia In the past year, 1 episode(s) of DKA In the past year, 1 episode(s) hypoglycemia requiring treatment with the assistance of an additional person. Symptomatic hypoglycemia at 60 mg/dl. Treats with Glucose Tabs and Juice. Common Food & Beverage Choices Breakfast Coffee / yogurt Lunch Chicken wrap Dinner Snacks Ice cream / yogurt / fruit Beverages Water / coffee / tea / sparkling water Kaylee reports ability to carb count: Yes Physical Activity Regimen: Daily Psycho-social concerns: Concerns No Financial concerns: Concerns No Food Insecurity: No Food Insecurity (01/13/2024) Hunger Vital Sign Worried About Running Out of Food in the Last Year: Never true Ran Out of Food in the Last Year: Never true Diabetes Technology Insulin Pump: Maven Networksipod 5 Continuous Glucose Monitor : Dexcom G6 Insulin Pump Settings Basal Rate(s) 0000 - 0.50 0300 - 0.35 1000 - 0.50 1500 - 0.50 1900 - 0.55 11.2 units Carb Ratio 0000 - 20 Sensitivity 0000 - 80 BG Target 0000 - 110 Active Insulin 3 hours Insulin Pump Download Date 12/31/23-01/13/24 Avg Sensor 210+/-78 Time in Range 42% Above Target 58% Below Target 0% TDD units 24.9 units Basal / Bolus 73/27 Manual Basal 11.2 units Automode Basal 18.3 units Avg Carbs 87.3 grams Insulin Pump Upload Observation(s) Rapid spikes following meals associated with bolus timing Some highs due to missed bolus for food Automated mode exits following max insulin delivery Auto basal delivery is 7 units higher than manual delivery Suggested Changes: Work on bolusing 15 minutes before eating Diabetes Self-Management Training Areas of Focus Reviewed pump / CGM data together and discussed trends Insulin action time / bolus timing Return to automated mode 5 minutes after entering manual mode due to max insulin delivery Discussed Dexcom G7 as compatible pods will soon be available Assessment of the 9 ADA Topic Areas Diabetes assessment completed 01/13/2024 Diabetes Disease Process: Independent Nutrition Management: Needs Review Physical Activity: Independent Medications: Independent Monitoring Blood Glucose: Independent Prevent, Detect & Treat Acute Complications: Needs Review Prevent, Detect & Treat Chronic Complications: Independent Healthy Coping: Independent Strategies to Promote Health & Behavior Change: Independent Interest in healthy lifestyle change: 4 (5 is highest): Cuvs-Vbju-Vnvznvtxh self-assessment: Numeracy Literacy evaluated by: Pump Settings. Concerns No Kaylee Tariq's response to education: actively participated in discussion Teaching Methods: Demonstration Patient-Driven Short-Term Goal Taking Medicine: Bolus 15 minutes before meals, currently achieving goal 0% of the time Educator & Patient Agreed Goals 1. Monitor BG levels using CGM, aim to wear >85% of the time 2. Bolus 15 minutes before meals 3. Dose insulin consistently using the bolus calculator for all carbohydrates 4. Rotate infusion sites to maintain healthy skin Visit Length: 30 Minutes Visit Size: [address], LD, CDCES documented in this encounter [facility] 01-13-2024 History and physical note Images from the original note were not included. [facility] Endocrinology, Diabetes & Metabolism Clinic CC: Type 1 Diabetes Mellitus (T1D); New patient Diagnosis Date: Age 15 (1993) Regimen: CSII-HCL Device: Omnipod 5 and Dexcom G6 DME vendor: none 05/07/22 Dexcom G6 via Mobile Alexa: Linked to [facility] [employer] Omnipod 5: Linked to [employer] Clinical Care Team -Referring Provider for today's visit: Elizabeth Maxwell MD -Primary Care Provider: Kaylee Estrada DO -T1D Clinic Attending Physician: Katie Fraga MD, PhD -T1D Clinic ALEXA: not yet assigned History of Present Illness: Kaylee Tariq is a 43 y.o. female with Type 1 Diabetes Mellitus (T1D) who presents to the [facility] Endocrinology, Diabetes and Metabolism Clinic today for discussion of her diabetes management. She presents with her mother, who is her primary caregiver. Review of glucose, BP and lipids show that she needs statin and intensive glucose control but no ACEi/ARB at this time She is referred from PCP to establish care in the T1D Clinic. She has received care from [facility] She is concerned about transferring scripts and establishing intensive glucose control She has been using technology. She has not been having issues with hypoglycemia. She is fairly confident in her carb counting. Apps used for Carb Counting: none Lab Results Component Value Date HGBA1C 7.7 (H) 04/05/2022 She reports no recent illness or hospitalization. Care Everywhere reviewed including notes from [id number] and labs from [id number]. She has been on CSII since age 23 She has been using CGM since 2012 She uses arms for infusion sites and stomach for CGM. No injection site issues. She boluses just prior to meals and after snacks She denies missed doses. Thyroid Diagnosis 2003 Medication: 50 mcg/d Dose changes: Last dose change > 1-2 years Hypoglycemia: yes. She does not have hypoglycemia unawareness. Barajas Hypoglycemia Score: one Frequency and timing of hypoglycemia: daily to weekly Severity of hypoglycemic episode: mild to severe Hypoglycemic threshold: 60s She is aware of hypoglycemic symptoms including weakness, shakiness, sweating, palpitations. She does have glucagon at home. Last call to EMS or hospitalization for hypoglycemia: none recently Home glucose monitoring: She did bring/send in glucose data to review. 2 weeks of data was downloaded, printed and reviewed. Current monitoring regimen: continuous use of CGM to plan/adjust prandial dosing and to assess & adjust basal dosing. CGM Data: CGM data was reviewed with patient and uploaded into Media tab. Device: Dexcom G6 Time: 2 min Trends: tends to rise after lunch dinner Assessment / Impression: Uncontrolled T1D managed with OP 5 system Review of glucose, BP and lipids show that she needs statin and intensive glucose control but no ACEi/ARB at this time . We discussed her glucose trends, management of symptoms of hypoglycemia, and plans for ongoing SMBG to assess glucose variability and hypoglycemia. Emphasized risk of severe hypoglycemia requiring frequent glucose monitoring and close attention to signs/symptoms. Discussed risks of complications with hyperglycemia, hypertension and dyslipidemia, including vision loss, kidney failure, amputation, stroke, heart attack and . We discussed targets of therapy including an A1c < 7%, BP < 140/80, lipid management, and weight management. Reviewed records, including chart notes & labs. Glucose: A1c level and trends reviewed and discussed Reviewed infusion sites and strategies for rotation Needs DM Education Needs to work on carb counting Needs to prebolus Needs CGM with alerts to prevent hypoglycemia Lipids: Lab Results Component Value Date LDLCALC 37 10/20/2023 Continue to monitor lipids. No indication for statin at this time. CV Risk: [email or web address] Engine/ T1D CV risk calculator BP/Renal: BP Readings from Last 3 Encounters: 01/13/24 122/56 10/20/23 88/54 04/22/23 98/62 No results found for: MICALBCREAT BP at target, Continue to monitor ACR, no indication for ACEi at this time Metabolic Syndrome: Body mass index is 26.37 kg/m . does not meet criteria for metabolic syndrome Thyroid: Due to check TSH. Dosing/timing precautions reviewed. Vitamin D: Due to check level. Initiate repletion as indicated. Annual Labs: due Refills: Summer/Winter Plan: No changes to pump settings at this time Initiate DM education today (pump review session Needs to prebolus at least 15 min Continue CGM with alerts to prevent hypoglycemia Dental exam: Ongoing care q3m Eye exam: Ok to go every 2-3 years since normal at > 25 years of T1D) Vaccines: Due for tetanus, flu & pneumonia Labs: Labs today. A1c standing order x 12 months entered today, 01/13/24 We will always send the results through My Chart. Refills: Declined ketone strips & ondansetron Glucagon refills prn Requested Prescriptions Signed Prescriptions Disp Refills Glucagon (Baqsimi Two Pack) 3 MG/DOSE Powder 2 Each 1 Si mg by Nasal route As directed as needed. 3 mg (one actuation) into a single nostril for symptomatic low blood sugar; if no response, may repeat in 15 minutes using a new intranasal device. Dx. E10.65, E10.649 Levothyroxine 50 MCG tablet 90 tablet 3 Sig: Take 1 tablet by mouth every morning before breakfast. Dx E06.3 Insulin Aspart (NovoLOG) 100 UNIT/ML injection 90 mL 2 Sig: as directed up to 100 units/day per insulin pump DxE10.65 Ondansetron 4 MG Tab Dispersible tablet 90 tablet 3 Sig: Take 1 tablet by mouth every 8 hours as needed. For nausea associated with signs/symptoms of DKA DxE10.65 Insulin Disposable Pump (Omnipod 5 G6 Pods, Gen 5,) Misc 45 Each 3 Si Each by Instructed route Every 2 days. Dx. E10.65, E10.649 Continuous Glucose Sensor (Dexcom G6 Sensor) Misc 9 Each 3 Sig: Inject 1 Each under the skin every 10 days. Dx E10.65; E10.649 Continuous Glucose Transmitter (Dexcom G6 Transmitter) Misc 1 Each 3 Si Each by Instructed route every 90 Days. Dx E10.65; E10.649 glucose blood test strips (OneTouch Verio) Strip strip 600 strip 3 Sig: As directed up to 7X daily for 90 day supply of #600. DxE10.65 insulin glargine (Lantus SoloStar) 100 UNIT/ML Solution Pen-injector injection 15 mL 6 Sig: As directed up to 50 units daily in the event of pump failure DxE10.65 please hold for patient to request Insulin Pen Needle 32G X 4 MM Misc 200 Each 11 Sig: As directed up to 6X daily with insulin pens in the event of pump failure DxE10.65 please hold for patient to request insulin aspart 100 UNIT/ML Solution Pen-injector injection 15 mL 6 Sig: As directed with meals and snacks up to 50 units daily DxE10.65 please hold for patient to request RTC: Return in about 6 months (around 07/14/2024) for T1D inperson appt with T1D [facility]. Diagnosis ICD-10-CM 1. Type 1 diabetes mellitus with hyperglycemia E10.65 2. Insulin pump status Z96.41 3. Type 1 diabetes mellitus with hypoglycemia and without coma E10.649 4. 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 She has never used smokeless tobacco. Alcohol: She reports current alcohol use. Diabetes medications: humalog insulin per OP pump Vaccines: Flu Reminded to get flu shot this fall Pneumonia Due Tetanus Probably 2021 Hepatitis none Shingles <50 y/o Immunization History Administered Date(s) Administered [id number] COVID-19 monovalent vaccine (Moderna), 12yr+, 100mcg/0.5mL 07/04/2020, 07/31/2020, 05/02/2021 Pneumococcal Polysac 23-Valent Vaccine 12/19/2008 Past Medical History: Diagnosis Date Acquired hypothyroidism Insulin pump 02/2022 Omnipod 5 Trisomy 21 syndrome Type 1 diabetes mellitus (T1D) 1995 Type 1 diabetes mellitus with diabetic polyneuropathy VSD (ventricular septal defect) Past Surgical History: Procedure Laterality Date CORONARY STENT PLACEMENT N/A 04/04/2022 Laterality: N/A; Surgeon: Kenneth Foster MD, PhD; Location: [facility] ROSS CATH RELEASE TRIGGER FINGER 2013 Current Outpatient Medications Medication Instructions ammonium lactate 12 % Lotion lotion 2 TIMES DAILY aspirin 81 MG Chew Tab chewable tablet Chew and swallow 1 tablet by mouth daily. Baqsimi Two Pack 3 mg, Nasal, DIRECTED PRN, 3 mg (one actuation) into a single nostril for symptomatic low blood sugar; if no response, may repeat in 15 minutes using a new intranasal device. Continuous Glucose Charger Operator (Dexcom G6 Charger Operator) Device Dexcom G6 Charger Operator escitalopram (LEXAPRO) 5 mg, Oral, DAILY Insulin Dispos Bottom Crane Operator Accessories (Omnipod Pod Pals) Misc 100 Units, Unknown Levothyroxine (SYNTHROID) 50 mcg, Oral, DAILY BEFORE BREAKFAST Ondansetron (ZOFRAN-ODT) 4 mg, EVERY 8 HOURS NEEDED Rosuvastatin (CRESTOR) 40 mg, Oral, DAILY No Known Allergies Family History Problem Relation Age of Onset No known problems Mother No known problems Father No known problems Sister Diabetes Maternal Great Grandmother Review of Systems: Per HPI. Gen: no fever, no chills, mild weight fluctuation Resp: no cough, no SOB CV: no chest pain, palpitations, chest tightness, or dyspnea of exertion. GI: no abd pain, nausea, or vomiting : no dysuria or hematuria. Stable nocturia Neuro: no tingling, numbness or burning sensation of feet. All other systems negative. Physical Exam General/Constitutional: Well-appearing female, who looks her stated age. No acute distress. Vitals: BP 122/56 Pulse 53 Resp 18 Ht 1.524 m (5') Wt 61.2 kg (135 lb) SpO2 99% BMI 26.37 kg/m Smoking Status Never Body mass index is 26.37 kg/m . BP Readings from Last 3 Encounters: 01/13/24 122/56 10/20/23 88/54 04/22/23 98/62 Wt Readings from Last 3 Encounters: 01/13/24 61.2 kg (135 lb) 10/20/23 62.5 kg (137 lb 11.2 oz) 04/22/23 62 kg (136 lb 11.2 oz) HEENT: Head: Normocephalic and atraumatic. Eyes: Sclerae are anicteric. Sclerae are not injected. Mouth: Oropharynx clear, mucous membranes moist Neck/Throat: no thyromegaly, no thyroid nodularity. Lymph: no cervical lymphadenopathy, Cardiovascular: Regular rate and rhythm. Normal S1, S2. No carotid bruits. Respiratory: Lungs are clear to auscultation bilaterally. normal lung expansion bilaterally GI: Abdomen is soft, non-distended, non-tender. Musculoskeletal: Normal muscle mass. Neurological: Pupils are equal, round. Extraocular movements are intact. No tremor with outstretched hands. Skin: Normal temperature. Normal texture. Infusion sites are clean and dry Psych: Conscious, alert and oriented. Normal mood. Normal affect. Foot exam: no foot ulcer bilaterally, 2+ dorsalis pedis pulse bilaterally, sensation intact to a 10 gram monofilament below the ankles. Vibration sense mildly diminished distally in the feet. Procedure / Imaging / Lab Data: Pertinent procedure/imaging/lab data was reviewed: A1c: Hemoglobin A1C HPLC Date Value Ref Range Status 04/05/2022 7.7 (H) 4.7 - 5.6 % Final Lipids: Lab Results Component Value Date CHOLESTEROL 91 10/20/2023 TRIG 66 10/20/2023 HDL 41 10/20/2023 LDLCALC 37 10/20/2023 Thyroid: TSH Date Value Ref Range Status 04/04/2022 5.310 (H) 0.550 - 4.780 uIU/mL Final Free T4 Date Value Ref Range Status 04/04/2022 1.08 0.89 - 1.76 ng/dL Final Celiac: No results found for: TISSUETRANS No results found for: ENDOMYABIGA No results found for: GLIADNABIGA B12: No results found for: B12 Vitamin D: No results found for: [id number] Urine studies: No results found for: CREATURINE , MICROALBUMIN , MICALBCREAT Computed FIB-4 Calculation unavailable. One or more values for this score either were not found within the given timeframe or did not fit some other criterion. No results found for: [id number] Orders Placed This Encounter TSH W/FT4 REFLEX ANTI MICROSOMAL ANTIBODY LIPID PANEL W CALCULATED LDL CHEM 6 (LYTES, BUN CREA) HEPATIC FUNCTION PANEL VITAMIN D (25-HYDROXY,TOTAL) VITAMIN B12 IGA T-TRANSGLUTAMINASE IGG/IGA, AB HEMOGLOBIN A1C POCT HEMOGLOBIN A1C Glucagon (Baqsimi Two Pack) 3 MG/DOSE Powder Levothyroxine 50 MCG tablet Insulin Aspart (NovoLOG) 100 UNIT/ML injection Ondansetron 4 MG Tab Dispersible tablet Insulin Disposable Pump (Omnipod 5 G6 Pods, Gen 5,) Misc Continuous Glucose Sensor (Dexcom G6 Sensor) Misc Continuous Glucose Transmitter (Dexcom G6 Transmitter) Mis glucose blood test strips (OneTouch Verio) Strip strip insulin glargine (Lantus SoloStar) 100 UNIT/ML Solution Pen-injector injection Insulin Pen Needle 32G X 4 MM Misc insulin aspart 100 UNIT/ML Solution Pen-injector injection MICROALBUMIN,RANDOM URINE Patient Instructions Pump Failure/Pump Holiday Instructions for planning insulin dosing in the event that your pump is not working or you decide to take a pump holiday 1. Basal insulin (Lantus/Basaglar/Semglee/insulin glargine, Toujeo or Tresiba) once daily in the morning at the same total basal dose as your pump setting Toujeo & Tresiba will always be dosed once daily Lantus/Basaglar/Semglee/insulin glargine can be dosed once daily if your total daily dose of basal is aprox 1 unit/kg/day or higher. If the total basal is less than that then Lantus/Basaglar/Semglee/insulin glargineshould be split in to two doses approximately 12 hours apart. NOTE:with Lantus/Basaglar/Semglee/insulin glargine you will probably need a dose that is 20% higher but for safety reasons first switch over at the same dose as currently delivered by the pump 2. Continue the meal time insulin at the same nbwvnox-jz-tszg-ratio (ICR) & correction factor (sensitivity factor) Sick Day Rules You can do a correction dose every 4 hours while awake. I would suggest using double the usual correction dose. Ex if you correct at 1 unit for every 30 that glucose is above 130 then correct for every 15 instead. If glucose continues to rise after 2 correction doses then check urine ketones. If large then go to ED; if small then keep correcting and drinking water When your next dose of basal (long acting) is due you will need to calculate how much extra short acting you used in the previous 24 hours and add that number to the usual dose of basal. Ex if you gave 4 doses of 6 units then add 24 units to the basal dose. If basal is 20 units then you would take 44 instead of 20. Keep increasing basal daily until not needing the correction. When sugar starts trending down then you need to start decreasing the basal insulin dose Ketone monitoring and sick day management: When you have a high glucose >300 mg/dl, bolus/dose with fast acting insulin using correction factor and recheck in 2 hours. If your glucose is not coming down or if you have nausea or abdominal pain: 1) insulin regimen: PUMP If you are on a pump, change infusion site and give an injection of insulin according to the calculator. Multiple Daily Injections (MDI) Continue usual basal & prandial insulin dosing Give correction dose every 4 hours using your usual correction factor If glucose still rising after correction every 4 hours x 3 doses then go to ED 2) Steroid. If high glucose levels are due to steroid therapy then increase basal insulin by 50% and Give a correction dose using rapid acting insulin every 4 hours using your usual correction factor If fasting glucose is still high the next day then increase the basal further by adding the amount given as extra correction the previous day 3) Check ketones. If your ketones are elevated, do the following (in addition to your usual short-acting/mealtime insulin coverage for carbs and high sugars: -Drink fluids 250-500 ml every 2 hours -Provide additional correction/supplemental insulin as follows: If your ketones are moderate: give 10% of your usual total daily dose of long-acting + short-acting insulin based on your correction dosing If your ketones are high/extreme: give 20% of your usual total daily dose of long-acting + short-acting insulin based on your correction dosing -Eat or drink 30 grams of carbs every 2-4 hours. COVER ALL CARBS WITH MEALTIME INSULIN -Consider increasing basal insulin (Lantus, Basaglar, Toujeo, Tresiba, Levemir, OR pump) by 20-50% until ketones normalize. 4) DKA is likely if ketones remain high/extreme despite supplemental insulin 6) If symptoms continue and/or you are unable to ingest fluids, go directly to the emergency department. Repeat ketone monitoring Keep in mind that the urine ketones may look like they are getting worse even if they are clearing your blood because of the way the body processes them so if you are feeling better (nausea goes away) and your sugars are coming down you don't have to repeat the ketone correction unless you have persistent ketones for at least 4 hours. Pump malfunction: If there is a problem with your pump you may switch to injections of basal insulin (Lantus, Basaglar, Toujeo, Tresiba, Levemir, once daily in the morning at the same total basal dose as your pump setting plus Humalog or Novolog (or other short acting insulin) with your meals and corrections. You may resume the pump 24 hours after the last dose of basal insulin or use a temp basal of 0% and the bolus calculator as usual until 24 hours after the dose of basal insulin. Fluids with 15 grams of carbs 2/3 cup regular soda pop 1 cup regular sports drink 2/3 cup juice cup regular gelatin dessert cup apple sauce 1 popsicle stick Sugar-free fluids Water Low or zero calorie drink mix Diet soda pop Tea-unsweetened Clear soup or broth A PDF version of the STOP DKA Protocol wallet card may be downloaded at http://www.[employer] .org/wp-content/uploads//S SMDVLT-Rrvt-Rpupukuatv-Therapeuti cs.pdf Eye exam Health Maintenance Overdue - EYE EXAM (Yearly) Never done No completion history exists for this topic. Foot Exam Health Maintenance Overdue - DIABETIC FOOT EXAM (Yearly) Never done No completion history exists for this topic. She paresthesias: See T1D Summary above Dental Exam Gum disease or referred for deep cleaning? See T1D Summary above [facility] 01-13-2024 History and physical note Images from the original note were not included. [facility] Endocrinology, Diabetes & Metabolism Clinic CC: Type 1 Diabetes Mellitus (T1D); New patient Diagnosis Date: Age 15 (1993) Regimen: CSII-HCL Device: Omnipod 5 and Dexcom G6 DME vendor: none 05/07/22 Dexcom G6 via Mobile Alexa: Linked to [facility] Omnipod 5: Linked to [employer] Clinical Care Team -Referring Provider for today's visit: Elizabeth Maxwell MD -Primary Care Provider: Kaylee Estrada DO -T1D Clinic Attending Physician: Katie Fraga MD, PhD -T1D Clinic ALEXA: not yet assigned History of Present Illness: Kaylee Tariq is a 43 y.o. female with Type 1 Diabetes Mellitus (T1D) who presents to the [facility] Endocrinology, Diabetes and Metabolism Clinic today for discussion of her diabetes management. She presents with her mother, who is her primary caregiver. Review of glucose, BP and lipids show that she needs statin and intensive glucose control but no ACEi/ARB at this time She is referred from PCP to establish care in the T1D Clinic. She has received care from [facility] She is concerned about transferring scripts and establishing intensive glucose control She has been using technology. She has not been having issues with hypoglycemia. She is fairly confident in her carb counting. Apps used for Carb Counting: none Lab Results Component Value Date HGBA1C 7.7 (H) 04/05/2022 She reports no recent illness or hospitalization. Care Everywhere reviewed including notes from [id number] and labs from [id number]. She has been on CSII since age 23 She has been using CGM since 2012 She uses arms for infusion sites and stomach for CGM. No injection site issues. She boluses just prior to meals and after snacks She denies missed doses. Thyroid Diagnosis 2003 Medication: 50 mcg/d Dose changes: Last dose change > 1-2 years Hypoglycemia: yes. She does not have hypoglycemia unawareness. Barajas Hypoglycemia Score: one Frequency and timing of hypoglycemia: daily to weekly Severity of hypoglycemic episode: mild to severe Hypoglycemic threshold: 60s She is aware of hypoglycemic symptoms including weakness, shakiness, sweating, palpitations. She does have glucagon at home. Last call to EMS or hospitalization for hypoglycemia: none recently Home glucose monitoring: She did bring/send in glucose data to review. 2 weeks of data was downloaded, printed and reviewed. Current monitoring regimen: continuous use of CGM to plan/adjust prandial dosing and to assess & adjust basal dosing. CGM Data: CGM data was reviewed with patient and uploaded into Media tab. Device: Dexcom G6 Time: 2 min Trends: tends to rise after lunch dinner Assessment / Impression: Uncontrolled T1D managed with OP 5 system Review of glucose, BP and lipids show that she needs statin and intensive glucose control but no ACEi/ARB at this time . We discussed her glucose trends, management of symptoms of hypoglycemia, and plans for ongoing SMBG to assess glucose variability and hypoglycemia. Emphasized risk of severe hypoglycemia requiring frequent glucose monitoring and close attention to signs/symptoms. Discussed risks of complications with hyperglycemia, hypertension and dyslipidemia, including vision loss, kidney failure, amputation, stroke, heart attack and . We discussed targets of therapy including an A1c < 7%, BP < 140/80, lipid management, and weight management. Reviewed records, including chart notes & labs. Glucose: A1c level and trends reviewed and discussed Reviewed infusion sites and strategies for rotation Needs DM Education Needs to work on carb counting Needs to prebolus Needs CGM with alerts to prevent hypoglycemia Lipids: Lab Results Component Value Date LDLCALC 37 10/20/2023 Continue to monitor lipids. No indication for statin at this time. CV Risk: [email or web address] T1D CV risk calculator BP/Renal: BP Readings from Last 3 Encounters: 01/13/24 122/56 10/20/23 88/54 04/22/23 98/62 No results found for: MICALBCREAT BP at target, Continue to monitor ACR, no indication for ACEi at this time Metabolic Syndrome: Body mass index is 26.37 kg/m . does not meet criteria for metabolic syndrome Thyroid: Due to check TSH. Dosing/timing precautions reviewed. Vitamin D: Due to check level. Initiate repletion as indicated. Annual Labs: due Refills: Summer/Winter Plan: No changes to pump settings at this time Initiate DM education today (pump review session Needs to prebolus at least 15 min Continue CGM with alerts to prevent hypoglycemia Dental exam: Ongoing care q3m Eye exam: Ok to go every 2-3 years since normal at > 25 years of T1D) Vaccines: Due for tetanus, flu & pneumonia Labs: Labs today. A1c standing order x 12 months entered today, 01/13/24 We will always send the results through My Chart. Refills: Declined ketone strips & ondansetron Glucagon refills prn Requested Prescriptions Signed Prescriptions Disp Refills Glucagon (Baqsimi Two Pack) 3 MG/DOSE Powder 2 Each 1 Si mg by Nasal route As directed as needed. 3 mg (one actuation) into a single nostril for symptomatic low blood sugar; if no response, may repeat in 15 minutes using a new intranasal device. Dx. E10.65, E10.649 Levothyroxine 50 MCG tablet 90 tablet 3 Sig: Take 1 tablet by mouth every morning before breakfast. Dx E06.3 Insulin Aspart (NovoLOG) 100 UNIT/ML injection 90 mL 2 Sig: as directed up to 100 units/day per insulin pump DxE10.65 Ondansetron 4 MG Tab Dispersible tablet 90 tablet 3 Sig: Take 1 tablet by mouth every 8 hours as needed. For nausea associated with signs/symptoms of DKA DxE10.65 Insulin Disposable Pump (Omnipod 5 G6 Pods, Gen 5,) Misc 45 Each 3 Si Each by Instructed route Every 2 days. Dx. E10.65, E10.649 Continuous Glucose Sensor (Dexcom G6 Sensor) Misc 9 Each 3 Sig: Inject 1 Each under the skin every 10 days. Dx E10.65; E10.649 Continuous Glucose Transmitter (Dexcom G6 Transmitter) Misc 1 Each 3 Si Each by Instructed route every 90 Days. Dx E10.65; E10.649 glucose blood test strips (InferXTouch Verio) Strip strip 600 strip 3 Sig: As directed up to 7X daily for 90 day supply of #600. DxE10.65 insulin glargine (Lantus SoloStar) 100 UNIT/ML Solution Pen-injector injection 15 mL 6 Sig: As directed up to 50 units daily in the event of pump failure DxE10.65 please hold for patient to request Insulin Pen Needle 32G X 4 MM Misc 200 Each 11 Sig: As directed up to 6X daily with insulin pens in the event of pump failure DxE10.65 please hold for patient to request insulin aspart 100 UNIT/ML Solution Pen-injector injection 15 mL 6 Sig: As directed with meals and snacks up to 50 units daily DxE10.65 please hold for patient to request RTC: Return in about 6 months (around 07/14/2024) for T1D inperson appt with T1D ALEXA, [place] please. Diagnosis ICD-10-CM 1. Type 1 diabetes mellitus with hyperglycemia E10.65 2. Insulin pump status Z96.41 3. Type 1 diabetes mellitus with hypoglycemia and without coma E10.649 4. 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 She has never used smokeless tobacco. Alcohol: She reports current alcohol use. Diabetes medications: humalog insulin per OP pump Vaccines: Flu Reminded to get flu shot this fall Pneumonia Due Tetanus Probably 2021 Hepatitis none Shingles <50 y/o Immunization History Administered Date(s) Administered 5983-8943 COVID-19 monovalent vaccine (Moderna), 12yr+, 100mcg/0.5mL 07/04/2020, 07/31/2020, 05/02/2021 Pneumococcal Polysac 23-Valent Vaccine 12/19/2008 Past Medical History: Diagnosis Date Acquired hypothyroidism Insulin pump 02/2022 Omnipod 5 Trisomy 21 syndrome Type 1 diabetes mellitus (T1D) 1995 Type 1 diabetes mellitus with diabetic polyneuropathy VSD (ventricular septal defect) Past Surgical History: Procedure Laterality Date CORONARY STENT PLACEMENT N/A 04/04/2022 Laterality: N/A; Surgeon: Kenneth Foster MD, PhD; Location: [facility] CATH RELEASE TRIGGER FINGER 2013 Current Outpatient Medications Medication Instructions ammonium lactate 12 % Lotion lotion 2 TIMES DAILY aspirin 81 MG Chew Tab chewable tablet Chew and swallow 1 tablet by mouth daily. Baqsimi Two Pack 3 mg, Nasal, DIRECTED PRN, 3 mg (one actuation) into a single nostril for symptomatic low blood sugar; if no response, may repeat in 15 minutes using a new intranasal device. Continuous Glucose Charger Operator (Dexcom G6 Charger Operator) Device Dexcom G6 Charger Operator escitalopram (LEXAPRO) 5 mg, Oral, DAILY Insulin Dispos Bottom Crane Operator Accessories (Omnipod Pod Pals) Misc 100 Units, Unknown Levothyroxine (SYNTHROID) 50 mcg, Oral, DAILY BEFORE BREAKFAST Ondansetron (ZOFRAN-ODT) 4 mg, EVERY 8 HOURS NEEDED Rosuvastatin (CRESTOR) 40 mg, Oral, DAILY No Known Allergies Family History Problem Relation Age of Onset No known problems Mother No known problems Father No known problems Sister Diabetes Maternal Great Grandmother Review of Systems: Per HPI. Gen: no fever, no chills, mild weight fluctuation Resp: no cough, no SOB CV: no chest pain, palpitations, chest tightness, or dyspnea of exertion. GI: no abd pain, nausea, or vomiting : no dysuria or hematuria. Stable nocturia Neuro: no tingling, numbness or burning sensation of feet. All other systems negative. Physical Exam General/Constitutional: Well-appearing female, who looks her stated age. No acute distress. Vitals: BP 122/56 Pulse 53 Resp 18 Ht 1.524 m (5') Wt 61.2 kg (135 lb) SpO2 99% BMI 26.37 kg/m Smoking Status Never Body mass index is 26.37 kg/m . BP Readings from Last 3 Encounters: 01/13/24 122/56 10/20/23 88/54 04/22/23 98/62 Wt Readings from Last 3 Encounters: 01/13/24 61.2 kg (135 lb) 10/20/23 62.5 kg (137 lb 11.2 oz) 04/22/23 62 kg (136 lb 11.2 oz) HEENT: Head: Normocephalic and atraumatic. Eyes: Sclerae are anicteric. Sclerae are not injected. Mouth: Oropharynx clear, mucous membranes moist Neck/Throat: no thyromegaly, no thyroid nodularity. Lymph: no cervical lymphadenopathy, Cardiovascular: Regular rate and rhythm. Normal S1, S2. No carotid bruits. Respiratory: Lungs are clear to auscultation bilaterally. normal lung expansion bilaterally GI: Abdomen is soft, non-distended, non-tender. Musculoskeletal: Normal muscle mass. Neurological: Pupils are equal, round. Extraocular movements are intact. No tremor with outstretched hands. Skin: Normal temperature. Normal texture. Infusion sites are clean and dry Psych: Conscious, alert and oriented. Normal mood. Normal affect. Foot exam: no foot ulcer bilaterally, 2+ dorsalis pedis pulse bilaterally, sensation intact to a 10 gram monofilament below the ankles. Vibration sense mildly diminished distally in the feet. Procedure / Imaging / Lab Data: Pertinent procedure/imaging/lab data was reviewed: A1c: Hemoglobin A1C HPLC Date Value Ref Range Status 04/05/2022 7.7 (H) 4.7 - 5.6 % Final Lipids: Lab Results Component Value Date CHOLESTEROL 91 10/20/2023 TRIG 66 10/20/2023 HDL 41 10/20/2023 LDLCALC 37 10/20/2023 Thyroid: TSH Date Value Ref Range Status 04/04/2022 5.310 (H) 0.550 - 4.780 uIU/mL Final Free T4 Date Value Ref Range Status 04/04/2022 1.08 0.89 - 1.76 ng/dL Final Celiac: No results found for: TISSUETRANS No results found for: ENDOMYABIGA No results found for: GLIADNABIGA B12: No results found for: B12 Vitamin D: No results found for: [id number] Urine studies: No results found for: CREATURINE , MICROALBUMIN , MICALBCREAT Computed FIB-4 Calculation unavailable. One or more values for this score either were not found within the given timeframe or did not fit some other criterion. No results found for: [id number] Orders Placed This Encounter TSH W/FT4 REFLEX ANTI MICROSOMAL ANTIBODY LIPID PANEL W CALCULATED LDL CHEM 6 (LYTES, BUN CREA) HEPATIC FUNCTION PANEL VITAMIN D (25-HYDROXY,TOTAL) VITAMIN B12 IGA T-TRANSGLUTAMINASE IGG/IGA, AB HEMOGLOBIN A1C POCT HEMOGLOBIN A1C Glucagon (Baqsimi Two Pack) 3 MG/DOSE Powder Levothyroxine 50 MCG tablet Insulin Aspart (NovoLOG) 100 UNIT/ML injection Ondansetron 4 MG Tab Dispersible tablet Insulin Disposable Pump (Omnipod 5 G6 Pods, Gen 5,) Misc Continuous Glucose Sensor (Dexcom G6 Sensor) Misc Continuous Glucose Transmitter (Dexcom G6 Transmitter) Misc glucose blood test strips (QC Corpuch Verio) Strip strip insulin glargine (Lantus SoloStar) 100 UNIT/ML Solution Pen-injector injection Insulin Pen Needle 32G X 4 MM Misc insulin aspart 100 UNIT/ML Solution Pen-injector injection MICROALBUMIN,RANDOM URINE Patient Instructions Pump Failure/Pump Holiday Instructions for planning insulin dosing in the event that your pump is not working or you decide to take a pump holiday 1. Basal insulin (Lantus/Basaglar/Semglee/insulin glargine, Toujeo or Tresiba) once daily in the morning at the same total basal dose as your pump setting Toujeo & Tresiba will always be dosed once daily Lantus/Basaglar/Semglee/insulin glargine can be dosed once daily if your total daily dose of basal is aprox 1 unit/kg/day or higher. If the total basal is less than that then Lantus/Basaglar/Semglee/insulin glargineshould be split in to two doses approximately 12 hours apart. NOTE:with Lantus/Basaglar/Semglee/insulin glargine you will probably need a dose that is 20% higher but for safety reasons first switch over at the same dose as currently delivered by the pump 2. Continue the meal time insulin at the same wbgiuoo-co-fhzp-ratio (ICR) & correction factor (sensitivity factor) Sick Day Rules You can do a correction dose every 4 hours while awake. I would suggest using double the usual correction dose. Ex if you correct at 1 unit for every 30 that glucose is above 130 then correct for every 15 instead. If glucose continues to rise after 2 correction doses then check urine ketones. If large then go to ED; if small then keep correcting and drinking water When your next dose of basal (long acting) is due you will need to calculate how much extra short acting you used in the previous 24 hours and add that number to the usual dose of basal. Ex if you gave 4 doses of 6 units then add 24 units to the basal dose. If basal is 20 units then you would take 44 instead of 20. Keep increasing basal daily until not needing the correction. When sugar starts trending down then you need to start decreasing the basal insulin dose Ketone monitoring and sick day management: When you have a high glucose >300 mg/dl, bolus/dose with fast acting insulin using correction factor and recheck in 2 hours. If your glucose is not coming down or if you have nausea or abdominal pain: 1) insulin regimen: PUMP If you are on a pump, change infusion site and give an injection of insulin according to the calculator. Multiple Daily Injections (MDI) Continue usual basal & prandial insulin dosing Give correction dose every 4 hours using your usual correction factor If glucose still rising after correction every 4 hours x 3 doses then go to ED 2) Steroid. If high glucose levels are due to steroid therapy then increase basal insulin by 50% and Give a correction dose using rapid acting insulin every 4 hours using your usual correction factor If fasting glucose is still high the next day then increase the basal further by adding the amount given as extra correction the previous day 3) Check ketones. If your ketones are elevated, do the following (in addition to your usual short-acting/mealtime insulin coverage for carbs and high sugars: -Drink fluids 250-500 ml every 2 hours -Provide additional correction/supplemental insulin as follows: If your ketones are moderate: give 10% of your usual total daily dose of long-acting + short-acting insulin based on your correction dosing If your ketones are high/extreme: give 20% of your usual total daily dose of long-acting + short-acting insulin based on your correction dosing -Eat or drink 30 grams of carbs every 2-4 hours. COVER ALL CARBS WITH MEALTIME INSULIN -Consider increasing basal insulin (Lantus, Basaglar, Toujeo, Tresiba, Levemir, OR pump) by 20-50% until ketones normalize. 4) DKA is likely if ketones remain high/extreme despite supplemental insulin 6) If symptoms continue and/or you are unable to ingest fluids, go directly to the emergency department. Repeat ketone monitoring Keep in mind that the urine ketones may look like they are getting worse even if they are clearing your blood because of the way the body processes them so if you are feeling better (nausea goes away) and your sugars are coming down you don't have to repeat the ketone correction unless you have persistent ketones for at least 4 hours. Pump malfunction: If there is a problem with your pump you may switch to injections of basal insulin (Lantus, Basaglar, Toujeo, Tresiba, Levemir, once daily in the morning at the same total basal dose as your pump setting plus Humalog or Novolog (or other short acting insulin) with your meals and corrections. You may resume the pump 24 hours after the last dose of basal insulin or use a temp basal of 0% and the bolus calculator as usual until 24 hours after the dose of basal insulin. Fluids with 15 grams of carbs 2/3 cup regular soda pop 1 cup regular sports drink 2/3 cup juice cup regular gelatin dessert cup apple sauce 1 popsicle stick Sugar-free fluids Water Low or zero calorie drink mix Diet soda pop Tea-unsweetened Clear soup or broth A PDF version of the STOP DKA Protocol wallet card may be downloaded at http://www.innov[employer]ethe[employer] .org/wp-content/uploads//S MFWRHV-Hqvi-Mkvhrizurw-Therapeuti cs.pdf Eye exam Health Maintenance Overdue - EYE EXAM (Yearly) Never done No completion history exists for this topic. Foot Exam Health Maintenance Overdue - DIABETIC FOOT EXAM (Yearly) Never done No completion history exists for this topic. She paresthesias: See T1D Summary above Dental Exam Gum disease or referred for deep cleaning? See T1D Summary above documented in this encounter [facility] 01-13-2024 Instructions Diane Fraga MD, PhD - 01/13/2024 9:20 AM EDT Images from the original note were not included. Pump Failure/Pump Holiday Instructions for planning insulin dosing in the event that your pump is not working or you decide to take a pump holiday 1. Basal insulin (Lantus/Basaglar/Semglee/insulin glargine, Toujeo or Tresiba) once daily in the morning at the same total basal dose as your pump setting Toujeo & Tresiba will always be dosed once daily Lantus/Basaglar/Semglee/insulin glargine can be dosed once daily if your total daily dose of basal is aprox 1 unit/kg/day or higher. If the total basal is less than that then Lantus/Basaglar/Semglee/insulin glargineshould be split in to two doses approximately 12 hours apart. NOTE:with Lantus/Basaglar/Semglee/insulin glargine you will probably need a dose that is 20% higher but for safety reasons first switch over at the same dose as currently delivered by the pump 2. Continue the meal time insulin at the same hvlfvco-fj-vqaf-ratio (ICR) & correction factor (sensitivity factor) Sick Day Rules You can do a correction dose every 4 hours while awake. I would suggest using double the usual correction dose. Ex if you correct at 1 unit for every 30 that glucose is above 130 then correct for every 15 instead. If glucose continues to rise after 2 correction doses then check urine ketones. If large then go to ED; if small then keep correcting and drinking water When your next dose of basal (long acting) is due you will need to calculate how much extra short acting you used in the previous 24 hours and add that number to the usual dose of basal. Ex if you gave 4 doses of 6 units then add 24 units to the basal dose. If basal is 20 units then you would take 44 instead of 20. Keep increasing basal daily until not needing the correction. When sugar starts trending down then you need to start decreasing the basal insulin dose Ketone monitoring and sick day management: When you have a high glucose >300 mg/dl, bolus/dose with fast acting insulin using correction factor and recheck in 2 hours. If your glucose is not coming down or if you have nausea or abdominal pain: 1) insulin regimen: PUMP If you are on a pump, change infusion site and give an injection of insulin according to the calculator. Multiple Daily Injections (MDI) Continue usual basal & prandial insulin dosing Give correction dose every 4 hours using your usual correction factor If glucose still rising after correction every 4 hours x 3 doses then go to ED 2) Steroid. If high glucose levels are due to steroid therapy then increase basal insulin by 50% and Give a correction dose using rapid acting insulin every 4 hours using your usual correction factor If fasting glucose is still high the next day then increase the basal further by adding the amount given as extra correction the previous day 3) Check ketones. If your ketones are elevated, do the following (in addition to your usual short-acting/mealtime insulin coverage for carbs and high sugars: -Drink fluids 250-500 ml every 2 hours -Provide additional correction/supplemental insulin as follows: If your ketones are moderate: give 10% of your usual total daily dose of long-acting + short-acting insulin based on your correction dosing If your ketones are high/extreme: give 20% of your usual total daily dose of long-acting + short-acting insulin based on your correction dosing -Eat or drink 30 grams of carbs every 2-4 hours. COVER ALL CARBS WITH MEALTIME INSULIN -Consider increasing basal insulin (Lantus, Basaglar, Toujeo, Tresiba, Levemir, OR pump) by 20-50% until ketones normalize. 4) DKA is likely if ketones remain high/extreme despite supplemental insulin 6) If symptoms continue and/or you are unable to ingest fluids, go directly to the emergency department. Repeat ketone monitoring Keep in mind that the urine ketones may look like they are getting worse even if they are clearing your blood because of the way the body processes them so if you are feeling better (nausea goes away) and your sugars are coming down you don't have to repeat the ketone correction unless you have persistent ketones for at least 4 hours. Pump malfunction: If there is a problem with your pump you may switch to injections of basal insulin (Lantus, Basaglar, Toujeo, Tresiba, Levemir, once daily in the morning at the same total basal dose as your pump setting plus Humalog or Novolog (or other short acting insulin) with your meals and corrections. You may resume the pump 24 hours after the last dose of basal insulin or use a temp basal of 0% and the bolus calculator as usual until 24 hours after the dose of basal insulin. Fluids with 15 grams of carbs 2/3 cup regular soda pop 1 cup regular sports drink 2/3 cup juice cup regular gelatin dessert cup apple sauce 1 popsicle stick Sugar-free fluids Water Low or zero calorie drink mix Diet soda pop Tea-unsweetened Clear soup or broth A PDF version of the STOP DKA Protocol wallet card may be downloaded at http://www.[employer] .org/wp-content/uploads//S MMDERJ-Qqtv-Btsodbuqvy-Therapeuti cs.pdf documented in this encounter [facility] 10-20-2023 History of Presen t illness Narrative Subjective We had the pleasure of seeing Ms. Kaylee Tariq in the Heart Failure Clinic at the [facility] on 10/20/2023. PCP - Dr. Estrada Pertinent Problem List: #HFrEF: ICM, LVEF 19% by cMRI in 03/2022 - Devices: None #CAD: - S/p PCI to ostial LAD in 03/2022 in the setting of NSTEMI - Known TANK ERECTOR of proximal circumflex #HLD #DM1 #Trisomy 21 CC/HPI: Kaylee Tariq is a 43 y.o. year old female here for evaluation of heart failure. Patient presented to an OSH in 03/2022 for fevers and encephalopathy. Echo there showed an EF of 15% which was newly reduced from an EF of 65% in 09/2020. She was transferred to [facility] due to concern for myocarditis. Initial HS troponin was elevated and she underwent an urgent coronary angiogram that showed severe proximal LAD disease. She Underwent PCI to this vessel. She was also found to have a TANK ERECTOR of the proximal circumflex. LVEDP was found to be 45 on the catheterization. She was diuresed agressively. GDMT titration was limited by low blood pressures. A cardiac MRI was performed which showed predominantly ICM with non-viable myocardium along with elevated T2. Since establishing in our clinic, she has had issues with hypotension which limits GDMT titration. She had a repeat echocardiogram in 06/2022 which showed an LVEF of 20-24%. She was referred to EP for consideration of an ICD. Appointment was made but was cancelled as patient and family did not want to undergo the procedure. Interval history: Denies chest pain. Denies shortness of breath. Has no limitations walking. Can go up a flight of stairs. Denies orthopnea/pnd. Some dizziness when she stands up too quickly. Denies syncope/falls. Denies swelling. Past Medical/Surgical History: detailed in Problem List above Family History: Family History Problem Relation Age of Onset No known problems Mother No known problems Father Social History: Social History Tobacco Use Smoking status: Never Smokeless tobacco: Never Vaping Use Vaping status: Never Used Substance Use Topics Alcohol use: Yes Drug use: Never Medications: Current Outpatient Medications Medication Sig Dispense Refill aspirin 81 MG Chew Tab chewable tablet Chew and swallow 1 tablet by mouth daily. 90 tablet 3 Continuous Glucose Charger Operator (Dexcom G6 Charger Operator) Device Dexcom G6 Charger Operator escitalopram 5 MG tablet Take 1 tablet by mouth daily. 30 tablet 1 Glucagon (Baqsimi Two Pack) 3 MG/DOSE Powder 3 mg by Nasal route As directed as needed. 3 mg (one actuation) into a single nostril for symptomatic low blood sugar; if no response, may repeat in 15 minutes using a new intranasal device. 2 Each 1 Insulin Dispos Bottom Crane Operator Accessories (Omnipod Pod Pals) Misc 100 Units by Unknown route. levothyroxine 50 MCG tablet Take 1 tablet by mouth every morning before breakfast. (Patient taking differently: Take 60 mcg by mouth every morning before breakfast.) 30 tablet 1 Rosuvastatin 40 MG tablet Take 1 tablet by mouth daily with dinner. 90 tablet 3 ticagrelor 90 MG tablet Take 1 tablet by mouth every 12 hours. Last dose on 10/03/23 60 tablet 2 ammonium lactate 12 % Lotion lotion Apply 1 Application topically 2 times daily. (Patient not taking: Reported on 05/13/2022) ondansetron 4 MG Tab Dispersible tablet Take 4 mg by mouth every 8 hours as needed. (Patient not taking: Reported on 06/11/2022) No current facility-administered medications for this visit. Allergies: No Known Allergies Objective Exam: Vitals: 10/20/23 1236 BP: 88/54 Pulse: 67 SpO2: 97% Weight: 62.5 kg (137 lb 11.2 oz) Height: 1.524 m (5') Repeat manually 68/52 Body mass index is 26.89 kg/m . Wt Readings from Last 5 Encounters: 10/20/23 62.5 kg (137 lb 11.2 oz) 04/22/23 62 kg (136 lb 11.2 oz) 10/19/22 57.6 kg (127 lb) 07/09/22 62.1 kg (136 lb 14.5 oz) 07/09/22 59.8 kg (131 lb 12.8 oz) General: Lethargic Head: Normocephalic, atraumatic Eyes: EOMI, no scleral icterus Cardiac: Bradycardic,, +S1/S2, no m/g/r. JVP 8, no edema Respiratory: Clear to auscultation bilaterally, no r/c/w Abdomen: Soft, non-tender, non-distended MSK: Warm, well perfused. No gross deformities Neuro: A&OX3, no focal deficits Skin: No jaundice Psych: Normal affect Labs: Lab Results Component Value Date CHOLESTEROL 91 10/19/2022 TRIG 84 10/19/2022 HDL 46 10/19/2022 LDLCALC 28 10/19/2022 Lab Results Component Value Date ALT 31 04/03/2022 AST 40 (H) 04/03/2022 ALKPHOS 104 04/03/2022 GLUCOSE 324 (H) 10/19/2022 HGBA1C 7.7 (H) 04/05/2022 TSH 5.310 (H) 04/04/2022 Lab Results Component Value Date SODIUM 137 04/22/2023 POTASSIUM 4.2 04/22/2023 CHLORIDE 102 04/22/2023 CO2 29 04/22/2023 BUN 17 04/22/2023 CREATSERUM 0.95 04/22/2023 Lab Results Component Value Date BNP 474 (H) 04/22/2023 BNP 365 (H) 10/19/2022 BNP 900 (H) 04/06/2022 INR 1.1 04/03/2022 Studies: Echocardiogram Date LVEF LVIDD IVS/PW RV LA RA/Valves/RVSP/Other 07/09/22 20-24 55 7/7 RVD2 NML DDIII. MR1 04/06/22 22 60 9/8 NML NML Severe HK/AK of all christopher except basal inferior, basal inferolateral segments Left heart catheterization/coronary angiogram Date LM LAD LCx RCA Other 04/04/22 Min Ostial 99%, mild elsewhere s/p PCI with 2.75x38 MADHURI Occluded prox, R-L collaterals Minimal LVEDP 42 Electrocardiogram Date Findings 10/20/23 Sinus rhythm fith first degree AVB, LAE, PVCs, RAD 04/14/22 Sinus with frequent PVC. Septal/lateral q waves (personally reviewed) Other cardiac imaging Date Type Findings 04/07/22 cMRI EF 19%, RVEF 34%. LGE with subendocardial to transmural fibrosis in all segments except basal inferior and inferolateral wall. Evidence of T2 Other pertinent testing Date Type Findings Impression: Kaylee Tariq is a 43 y.o. year old female here for evaluation and management of heart failure. Her heart failure is ischemic in etiology. The patient currently endorses NYHA class II symptoms and is euvolemic on exam Summary of interventions Therapy Current Notes Diuretics Torsemide 20 prn Beta-vanessa RAAS/ARNI Hydralazine/nitrates MRA SGLT-2 inhibitor DM1 AAD Inotropes ICD/WOOD FILLER Not interested in ICD Problem List and Plan #Chronic Systolic Heart Failure: NYHA class II, warm/dry on exam - Euvolemic on exam - Unable to tolerate any GDMT at this point given low blood pressures - Lab work today - Not interested in ICD after discussion of risks/benefits - Repeat echo at next visit #CAD - No chest pain - Stop ticagrelor as it has been 18 months since PCI - Continue aspirin/statin #HLD - Continue rosuvastatin 40 mg daily - Check lipid panel today #PVCs - Noted on EKG - Unable to tolerate beta vanessa given hypotension - 7 day MCT to further evaluate #DM1 - Patient would like to establish with [facility] endocrinology - Referral placed We will see her back in clinic in 6 months or earlier if necessary. Please feel free to call if you have any questions. Elizabeth Maxwell MD Advanced Heart Failure/Transplant Cardiology 12 Lead EKG performed per provider's order, per policy, and given to Dr. Maxwell for interpretation. Medical casino games dealer offered to patient prior to sensitive procedure and patient declined documented in this encounter [facility] 10-20-2023 Instructions Elizabeth Maxwell MD - 10/20/2023 12:30 PM EDT I will order a 7 day monitor to evaluate your extra beats Stop ticagrelor Lab work today Follow up in 6 months documented in this encounter [facility] 06-04-2023 Telephone encounter Note Clearance faxed over to [facility] 06-04-2023 Miscellaneous Notes Clearance faxed over to [facility] Received call from orthopedic office, informed that patient will have MAC/local anesthesia and procedure takes approx 20minutes or so to complete. Attempted to call [facility] about type of anesthesia to be used. Had to leave with question and call back phone number. Received fax from [facility] requesting cardiac clearance for left middle finger AI marry release. Form printed and placed in Tammy's mailbox for review/completion. documented in this encounter [facility] 06-03-2023 Telephone encounter Note Received call from orthopedic office, informed that patient will have MAC/local anesthesia and procedure takes approx 20minutes or so to complete. [facility] 06-02-2023 Telephone encounter Note Attempted to call [facility] about type of anesthesia to be used. Had to leave vm with question and call back phone number. [facility] 06-02-2023 Telephone encounter Note Received fax from [facility] requesting cardiac clearance for left middle finger AI marry release. Form printed and placed in Tammy's mailbox for review/completion. [facility] 04-22-2023 History of Presen t illness Narrative It is my pleasure to see your patient Kaylee Tariq , a 42 y.o. female , at [facility] for HFrEF. Ms. Kaylee Tariq is a 41 year old with history of: 1. HFrEF: ICM, LVEF 19% by cMRI in 03/2022 - Devices: None 2. CAD: - S/p PCI to ostial LAD in 03/2022 - Known TANK ERECTOR of proximal circumflex 3. DM1 4. Trisomy 21 She was last seen in clinic 10/19/[address] Maxwell. She denies any emergency room visits or hospitalizations since her last visit. She denies dyspnea at rest, with exertion, orthopnea, PND, palpitations, lightheadedness, dizziness, presyncope, syncope, chest pain or edema. Blood pressures at home have been ranging from with 73-120/50-60's. Weight 133-134 lbs. She is more talkative in clinic today. She notes for her birthday in July she is going to [place] and is questioning being able to ride the [employer] ride. ROS: All other ROS reviewed and are negative except as noted above. Current Outpatient Medications Medication Sig aspirin 81 MG Chew Tab chewable tablet Chew and swallow 1 tablet by mouth daily. escitalopram 5 MG tablet Take 1 tablet by mouth daily. Glucagon (Baqsimi Two Pack) 3 MG/DOSE Powder 3 mg by Nasal route As directed as needed. 3 mg (one actuation) into a single nostril for symptomatic low blood sugar; if no response, may repeat in 15 minutes using a new intranasal device. Insulin Dispos Bottom Crane Operator Accessories (Omnipod Pod Pals) Misc 100 Units by Unknown route. levothyroxine 50 MCG tablet Take 1 tablet by mouth every morning before breakfast. (Patient taking differently: Take 60 mcg by mouth every morning before breakfast.) Rosuvastatin 40 MG tablet Take 1 tablet by mouth daily with dinner. ticagrelor 90 MG tablet Take 1 tablet by mouth every 12 hours. ammonium lactate 12 % Lotion lotion Apply 1 Application topically 2 times daily. (Patient not taking: Reported on 05/13/2022) ondansetron 4 MG Tab Dispersible tablet Take 4 mg by mouth every 8 hours as needed. (Patient not taking: Reported on 06/11/2022) Physical Exam BP 98/62 (BP Location: Right arm) Pulse 57 Ht 1.524 m (5') Wt 62 kg (136 lb 11.2 oz) SpO2 91% BMI 26.70 kg/m Smoking Status Never , Wt Readings from Last 3 Encounters: 04/22/23 62 kg (136 lb 11.2 oz) 10/19/22 57.6 kg (127 lb) 07/09/22 62.1 kg (136 lb 14.5 oz) , Body mass index is 26.7 kg/m . General/Constitutional: Well developed, well nourished female. No acute distress. HEENT: Head: Normocephalic and atraumatic. Neck: Supple, non-tender. Cardiac: No JVD. Regular rate and rhythm, NO MRG noted. Pulmonary/Chest: Lungs are clear bilaterally. Abdominal: + BS, NTND. No hepatomegaly. No hepatojugular reflux. Extremities: Normal range of motion in all four extremities. No cyanosis, clubbing, or peripheral edema. Peripheral Vascular Exam: Normal radial, posterior tibialis, and dorsalis pedis pulses. Neurological: Alert and oriented x 3. No focal neurologic deficit. Skin: Skin is warm and dry. Psychiatric: Appropriate mood and affect for her clinical situation. Summary of interventions Therapy Current Notes Diuretics Torsemide 20 as needed No taking Beta-vanessa None Held d/t low BP RAAS/ARNI Hydralazine/nitrates MRA No Held d/t low BP SGLT-2 inhibitor DM1 AAD Inotropes ICD/WOOD FILLER Did not tolerate Lifevest Labs: Lab Results Component Value Date SODIUM 136 10/19/2022 POTASSIUM 4.1 10/19/2022 CHLORIDE 100 10/19/2022 CO2 30 10/19/2022 BUN 22 10/19/2022 CREATSERUM 1.34 (H) 10/19/2022 07/09/22 Echocardiogram: Left ventricle is mildly dilated with thinning and akinesis of the apex, mid to distal septum, anterolateral and inferolateral christopher. 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 Left ventricular ejection fraction is severely reduced (20-24%). There is swirling contrast in the LV apex but no definitive thrombus seen. Grade III diastolic dysfunction. Right ventricular chamber size is normal, with moderately reduced systolic function. Mild mitral regurgitation. Unable to assess right ventricular systolic pressure due to inadequate TR jet. 04/07/22 Cardiac MRI: Severely enlarged left ventricle with severely reduced systolic function. Ischemic cardiomyopathy with subendocardial to transmural fibrosis in all myocardial segments except basal inferior and inferolateral wall. Impression/Plan: 1. Suspect predominantly ischemic but there may be a non-ischemic component as well wit her recent viral illness / chronic systolic heart failure (NYHA Class II / ACC Stage C): - Unable to reinstitution of GDMT due to hypotension - Recommend hydration, even before getting out of bed in am - Hold torsemide, plan to use prn if weight at home is over 140 lbs - Last Echocardiogram LVEF 20-24%, we discussed ICD again with her mother today and in clinic and they decline 2. CAD - No anginal symptoms - Continue ticagrelor and aspirin for 1 year post PCI 04/07 - Continue statin 3. Hypotension - Hold torsemide, encourage hydration - Unable to reinstitution of GDMT due to hypotension 4. HLD - Continue rosuvastatin 40 mg daily - LDL at goal 5. Education: Patient encouraged to follow a low sodium diet (2gm per day) and to restrict fluids to 2L per day (this includes soup, popsicles, ice cream, etc). Check daily weights and call office for weight change of 3 pounds overnight or 5 pounds in a week. Discussed exercising as tolerated for goal of 30 min 3-4 times a week. She will follow up in the clinic in 3-6 months and is to notify the office for any cardiovascular concerns prior to then. A written summary of today's visit, orders, and medication changes were given to the patient at the completion of this visit. The patient was in agreement with today's plan. Please do not hesitate to contact us with any questions. documented in this encounter [facility] 04-22-2023 Instructions ABRAN Gloria - 04/22/2023 11:30 AM EST The following medication changes and / or instructions from today include: - Labs today - Follow up [address] Maxwell - I will send you [employer] message regarding rides 1. Continue to monitor weight first thing each morning. 2. Report to the [facility] [place] ([phone]) any significant weight change. Remember that weight change of 2 pounds in one day or 5 pounds in one week is significant and likely represents changes in fluid status. 3. If you are taking a diuretic (such as lasix, demadex, bumex), you should also restrict all sodium intake to 2000 milligrams (2 grams) a day. Depending on your status, you may also be asked to restrict fluid intake. If uncertain, ask the nurse or physician. 4. Regular aerobic exercise is encouraged 30 minutes a day (walking, bike, swimming, etc.). For specific exercise recommendations, ask your physician. 5. Report to CLINIC any change in symptoms (chest pain, worsening shortness of breath, increased dizziness or passing out, increased palpitations or ICD shock, trouble catching breath while lying down, increased edema or abdominal bloating). Remember that even minor changes in symptoms may be important. Also report any changes in medications including over the counter medications. 6. DO NOT take NSAID's for pain (i.e, Advil, Motrin, ibuprofen, and many more) since these may cause serious problems in those with a history of CHF. If uncertain about the medication, call us. 7. If you have new significant or ongoing diarrhea or vomiting, please hold your diuretic (examples: furosemide/Lasix, torsemide/Demadex, bumetanide/Bumex) and call our clinic for further instructions. Taking a diuretic (water pill) with these symptoms can worsen dehydration. Heart Failure Patient Education Resources [place] [employer] Heart Failure Nurses (AAHFN) www.aahfn.org [place] [employer] Heart.org/workbooks Heart Failure Society of [place] (HFSA) www.hfsa.org documented in this encounter [facility] 10-22-2022 Telephone encounter Note Images from the original note were not included. Called pt to relay above results as per Dr Maxwell's message. Pt verbalized understanding and has no further questions or concerns at this time. Faxing lab orders to [facility]. Fax received. [facility] 10-22-2022 Miscellaneous Notes Images from the original note were not included. Called pt to relay above results as per Dr Maxwell's message. Pt verbalized understanding and has no further questions or concerns at this time. Faxing lab orders to [facility]. Fax received. Called pts mobile number. [employer] has +ID for Pam Tariq the pts mother. Detailed message left asking for a return call to our office and notifying her that we have sent a [employer] message to Kaylee but need follow up lab work. Office phone number provided. Result comments sent to the pt using [employer] messaging. ----- Message from Elizabeth Maxwell MD sent at 10/19/2022 3:11 PM EDT ----- Please let her know that her cholesterol looks good. Her creatinine is a bit elevated, I suspect this is due to dehydration in the setting of her high glucose. Her glucose was also elevated on our labwork. We discussed her drinking more water during our visit. Please encourage this. Can we repeat a BMP locally in 1 week or so to ensure the creatinine is improving? Thanks! Elizabeth documented in this encounter [facility] 10-22-2022 Telephone encounter Note Called pts mobile number. Voicemail has +ID for Pam Tariq the pts mother. Detailed message left asking for a return call to our office and notifying her that we have sent a [employer] message to Kaylee but need follow up lab work. Office phone number provided. [facility] 10-19-2022 Telephone encounter Note Result comments sent to the pt using [employer] messaging. [facility] 10-19-2022 Telephone encounter Note ----- Message from Elizabeth Maxwell MD sent at 10/19/2022 3:11 PM EDT ----- Please let her know that her cholesterol looks good. Her creatinine is a bit elevated, I suspect this is due to dehydration in the setting of her high glucose. Her glucose was also elevated on our labwork. We discussed her drinking more water during our visit. Please encourage this. Can we repeat a BMP locally in 1 week or so to ensure the creatinine is improving? Thanks! Elizabeth [facility] 10-19-2022 History of Presen t illness Narrative We had the pleasure of seeing . Kaylee Tariq in the Heart Failure Clinic at the [facility] on 10/19/2022. PCP - Dr. Estrada Pertinent Problem List: #HFrEF: ICM, LVEF 19% by cMRI in 03/2022 - Devices: None #CAD: - S/p PCI to ostial LAD in 03/2022 in the setting of NSTEMI - Known TANK ERECTOR of proximal circumflex #DM1 #Trisomy 21 CC/HPI: Kaylee Tariq is a 42 y.o. year old female here for evaluation of heart failure. Patient presented to an OSH in 03/2022 for fevers and encephalopathy. Echo there showed an EF of 15% which was newly reduced from an EF of 65% in 09/2020. She was transferred to [facility] due to concern for myocarditis. Initial HS troponin was elevated and she underwent an urgent coronary angiogram that showed severe proximal LAD disease. She Underwent PCI to this vessel. She was also found to have a TANK ERECTOR of the proximal circumflex. LVEDP was found to be 45 on the catheterization. She was diuresed agressively. GDMT titration was limited by low blood pressures. A cardiac MRI was performed which showed predominantly ICM with non-viable myocardium along with elevated T2. Since establishing in our clinic, she has had issues with hypotension which limits GDMT titration. She had a repeat echocardiogram in 06/2022 which showed an LVEF of 20-24%. She was referred to EP for consideration of an ICD. Appointment was made but was cancelled as patient and family did not want to undergo the procedure. Interval history: She complains of occasional chest pressure. Happened 5 times over the past 3 months. It has only happened at rest. She has been doing chores around the house and has not had chest pressure with that. Pain lasts 2 to 3 minutes. She thinks it's mild. The pain moves around and can also be associated with headaches and leg pain. She can go up a flight of stairs without any symptoms. She has her own garden. She denies LE edema. She has lost weight and has been eating healthy. She sleeps with 1 pillow and denies orthopnea/pnd. Her blood sugars have been high over the past month or so. She has dizziness but denies syncope or falls. BP at home has been in the 80's to 90's systolic. Pertinent positive and negative systems are described in the HPI; the remaining of the 14 systems are negative. Past Medical/Surgical History: detailed in Problem List above Family History: Family History Problem Relation Age of Onset No known problems Mother No known problems Father Social History: Social History Tobacco Use Smoking status: Never Smokeless tobacco: Never Vaping Use Vaping Use: Never used Substance Use Topics Alcohol use: Yes Drug use: Never Medications: Current Outpatient Medications Medication Sig Dispense Refill aspirin 81 MG Chew Tab chewable tablet Chew and swallow 1 tablet by mouth daily. 90 tablet 3 escitalopram 5 MG tablet Take 1 tablet by mouth daily. 30 tablet 1 Glucagon (Baqsimi Two Pack) 3 MG/DOSE Powder 3 mg by Nasal route As directed as needed. 3 mg (one actuation) into a single nostril for symptomatic low blood sugar; if no response, may repeat in 15 minutes using a new intranasal device. 2 Each 1 Rosuvastatin 40 MG tablet Take 1 tablet by mouth daily with dinner. 90 tablet 3 ticagrelor 90 MG tablet Take 1 tablet by mouth every 12 hours. 60 tablet 11 Torsemide 20 MG tablet Take 1 tablet by mouth as needed. For weight over 140 lbs ammonium lactate 12 % Lotion lotion Apply 1 Application topically 2 times daily. (Patient not taking: Reported on 05/13/2022) levothyroxine 50 MCG tablet Take 1 tablet by mouth every morning before breakfast. (Patient not taking: Reported on 07/09/2022) 30 tablet 1 ondansetron 4 MG Tab Dispersible tablet Take 4 mg by mouth every 8 hours as needed. (Patient not taking: Reported on 06/11/2022) No current facility-administered medications for this visit. Allergies: No Known Allergies Exam: Vitals: 10/19/22 1009 10/19/22 1016 BP: (!) 62/42 85/53 Pulse: 70 Resp: 18 SpO2: 97% Weight: 57.6 kg (127 lb) Height: 1.524 m (5') Repeat manually 68/52 Body mass index is 24.8 kg/m . Wt Readings from Last 5 Encounters: 10/19/22 57.6 kg (127 lb) 07/09/22 62.1 kg (136 lb 14.5 oz) 07/09/22 59.8 kg (131 lb 12.8 oz) 06/11/22 62.1 kg (137 lb) 05/13/22 60.9 kg (134 lb 3.2 oz) General: Lethargic Head: Normocephalic, atraumatic Eyes: EOMI, no scleral icterus Cardiac: Bradycardic,, +S1/S2, no m/g/r. JVP low, no edema Respiratory: Clear to auscultation bilaterally, no r/c/w Abdomen: Soft, non-tender, non-distended MSK: Warm, well perfused. No gross deformities Neuro: A&OX3, no focal deficits Skin: No jaundice Psych: Normal affect Labs: Lab Results Component Value Date CHOLESTEROL 89 04/05/2022 TRIG 80 04/05/2022 HDL 27 (L) 04/05/2022 LDLCALC 46 04/05/2022 Lab Results Component Value Date ALT 31 04/03/2022 AST 40 (H) 04/03/2022 ALKPHOS 104 04/03/2022 GLUCOSE 211 (H) 04/09/2022 HGBA1C 7.7 (H) 04/05/2022 TSH 5.310 (H) 04/04/2022 Lab Results Component Value Date SODIUM 136 04/09/2022 POTASSIUM 4.8 04/09/2022 CHLORIDE 97 (L) 04/09/2022 CO2 30 04/09/2022 BUN 18 04/09/2022 CREATSERUM 0.98 04/09/2022 Lab Results Component Value Date BNP 900 (H) 04/06/2022 BNP 985 (H) 04/03/2022 INR 1.1 04/03/2022 Studies: Echocardiogram Date LVEF LVIDD IVS/PW RV LA RA/Valves/RVSP/Other 07/09/22-24 55 7/7 RVD2 NML DDIII. MR1 04/06/22 22 60 9/8 NML NML Severe HK/AK of all christopher except basal inferior, basal inferolateral segments Left heart catheterization/coronary angiogram Date LM LAD LCx RCA Other 04/04/22 Min Ostial 99%, mild elsewhere s/p PCI with 2.75x38 MADHURI Occluded prox, R-L collaterals Minimal LVEDP 42 Electrocardiogram Date Findings 04/14/22 Sinus with frequent PVC. Septal/lateral q waves (personally reviewed) Other cardiac imaging Date Type Findings 04/07/22 cMRI EF 19%, RVEF 34%. LGE with subendocardial to transmural fibrosis in all segments except basal inferior and inferolateral wall. Evidence of T2 Other pertinent testing Date Type Findings Impression: Kaylee Tariq is a 42 y.o. year old female here for evaluation and management of heart failure. Her heart failure is ischemic in etiology. The patient currently endorses NYHA class II symptoms and is dry on exam. Summary of interventions Therapy Current Notes Diuretics Torsemide 20 prn Beta-vanessa RAAS/ARNI Hydralazine/nitrates MRA SGLT-2 inhibitor DM1 AAD Inotropes ICD/WOOD FILLER Did not tolerate Lifevest Problem List and Plan #Chronic Systolic Heart Failure: NYHA class II, warm/dry on exam - Dry on exam, suspect due to decreased PO intake and possibly hyperglycemia - Unable to tolerate any GDMT at this point given low blood pressures - Blood pressure low again today, asked to increase fluid intake and salt intake slightly - Lab work today - Had long discussion regarding benefits of ICD, patient and family are still not sure if they would like to proceed. Referral to EP already in place, asked them to make an appointment if they would like to move forward with ICD - Asked to call if she gains weight or has symptoms of heart failure with increasing fluid intake #CAD - Atypical chest pain at rest, no symptoms with exertion - Continue to monitor for now - Continue ticagrelor and aspirin for 1 year post PCI. We may consider prolonging DAPT given her severe CAD. Will need to have risk/benefit discussion regarding bleeding. - Continue statin #HLD - Continue rosuvastatin 40 mg daily - LDL at goal #Hypotension - With dizziness - Suspect due to dehydration as above - Increase fluid intake We will see her back in clinic in 6 months or earlier if necessary. Please feel free to call if you have any questions. Elizabeth Maxwell MD Advanced Heart Failure/Transplant Cardiology documented in this encounter [facility] 10-19-2022 Instructions Elizabeth Maxwell MD - 10/19/2022 10:30 AM EDT Lab work today Follow up Tammy Solares in April documented in this encounter [facility] 07-09-2022 History of Presen t illness Narrative It is my pleasure to see your patient Kaylee Tariq , a 41 y.o. female , at [facility] [facility] Heart Failure Program for HFrEF. Ms. Kaylee Tariq is a 41 year old with history of: 1. HFrEF: ICM, LVEF 19% by cMRI in 03/2022 - Devices: None 2. CAD: - S/p PCI to ostial LAD in 03/2022 - Known TANK ERECTOR of proximal circumflex 3. DM1 4. Trisomy 21 Kaylee is here in the office today with her parents. She was last seen in the clinic 06/11/22. They note her BP has improved most SBP 90's but she does occasionally have SBP 60-70's. She denies any symptoms for the most part. She notes she has fatigue but is able to do her chores around the house. She denies dyspnea at rest, with exertion, orthopnea, PND, palpitations, lightheadedness, dizziness, presyncope, syncope, chest pain or edema. GDMT has been limited due to low SBPs. She is only taking the torsemide as needed if weight over 140lbs and has not been needed. ROS: All other ROS reviewed and are negative except as noted above. Current Outpatient Medications Medication Sig aspirin 81 MG Chew Tab chewable tablet Chew and swallow 1 tablet by mouth daily. escitalopram 5 MG tablet Take 1 tablet by mouth daily. Glucagon (Baqsimi Two Pack) 3 MG/DOSE Powder 3 mg by Nasal route As directed as needed. 3 mg (one actuation) into a single nostril for symptomatic low blood sugar; if no response, may repeat in 15 minutes using a new intranasal device. Rosuvastatin 40 MG tablet Take 1 tablet by mouth daily with dinner. ticagrelor 90 MG tablet Take 1 tablet by mouth every 12 hours. Torsemide 20 MG tablet Take 1 tablet by mouth as needed. For weight over 140 lbs ammonium lactate 12 % Lotion lotion Apply 1 Application topically 2 times daily. (Patient not taking: Reported on 05/13/2022) levothyroxine 50 MCG tablet Take 1 tablet by mouth every morning before breakfast. (Patient not taking: Reported on 07/09/2022) ondansetron 4 MG Tab Dispersible tablet Take 4 mg by mouth every 8 hours as needed. (Patient not taking: Reported on 06/11/2022) Physical Exam BP 94/64 (BP Location: Left arm, BP Position: Sitting) Comment: h Pulse 55 Ht 1.524 m (5') Wt 59.8 kg (131 lb 12.8 oz) SpO2 97% BMI 25.74 kg/m Smoking Status Never , Wt Readings from Last 3 Encounters: 07/09/22 62.1 kg (136 lb 14.5 oz) 07/09/22 59.8 kg (131 lb 12.8 oz) 06/11/22 62.1 kg (137 lb) , Body mass index is 25.74 kg/m . General/Constitutional: Well developed, well nourished female. No acute distress. HEENT: Head: Normocephalic and atraumatic. Neck: Supple, non-tender. Cardiac: No JVD. Regular rate and rhythm, NO MRG noted. Pulmonary/Chest: Lungs are clear bilaterally. Abdominal: + BS, NTND. No hepatomegaly. No hepatojugular reflux. Extremities: Normal range of motion in all four extremities. No cyanosis, clubbing, or peripheral edema. Peripheral Vascular Exam: Normal radial, posterior tibialis, and dorsalis pedis pulses. Neurological: Alert and oriented x 3. No focal neurologic deficit. Skin: Skin is warm and dry. Psychiatric: Appropriate mood and affect for her clinical situation. Summary of interventions Therapy Current Notes Diuretics Torsemide 20 as needed No taking Beta-vanessa None Held d/t low BP RAAS/ARNI Hydralazine/nitrates MRA No Held d/t low BP SGLT-2 inhibitor DM1 AAD Inotropes ICD/WOOD FILLER Did not tolerate Lifevest Labs: Lab Results Component Value Date SODIUM 136 04/09/2022 POTASSIUM 4.8 04/09/2022 CHLORIDE 97 (L) 04/09/2022 CO2 30 04/09/2022 BUN 18 04/09/2022 CREATSERUM 0.98 04/09/2022 07/09/22 Echocardiogram: 1. Left ventricle is mildly dilated with thinning and akinesis of the apex, mid to distal septum, anterolateral and inferolateral christopher. 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 Left ventricular ejection fraction is severely reduced (20-24%). There is swirling contrast in the LV apex but no definitive thrombus seen. 2. Grade III diastolic dysfunction. 3. Right ventricular chamber size is normal, with moderately reduced systolic function. 4. Mild mitral regurgitation. 5. Unable to assess right ventricular systolic pressure due to inadequate TR jet. 04/07/22 Cardiac MRI: Severely enlarged left ventricle with severely reduced systolic function. Ischemic cardiomyopathy with subendocardial to transmural fibrosis in all myocardial segments except basal inferior and inferolateral wall. Impression/Plan: 1. Suspect predominantly ischemic but there may be a non-ischemic component as well wit her recent viral illness / chronic systolic heart failure (NYHA Class II / ACC Stage C): - Unable to reinstitution of GDMT due to hypotension - Recommend hydration, even before getting out of bed in am - Hold torsemide, plan to use prn if weight at home is over 140 lbs - Echocardiogram today reviewed with Dr. Maxwell and LVEF 20-24%. Will refer to EP for ICD placement 2. CAD - No anginal symptoms - Continue ticagrelor and aspirin for 1 year post PCI - Continue statin 3. Hypotension - Hold torsemide, encourage hydration - Unable to reinstitution of GDMT due to hypotension 4. HLD - Continue rosuvastatin 40 mg daily - LDL at goal 5. Education: Patient encouraged to follow a low sodium diet (2gm per day) and to restrict fluids to 2L per day (this includes soup, popsicles, ice cream, etc). Check daily weights and call office for weight change of 3 pounds overnight or 5 pounds in a week. Discussed exercising as tolerated for goal of 30 min 3-4 times a week. She will follow up in the clinic in 3 months and is to notify the office for any cardiovascular concerns prior to then. A written summary of today's visit, orders, and medication changes were given to the patient at the completion of this visit. The patient was in agreement with today's plan. Please do not hesitate to contact us with any questions. 12 Lead EKG performed per provider's order, per policy, and given to Flor Solares for review. documented in this encounter [facility] 07-09-2022 Instructions Tammy Solares, VALVE FITTER-APPAREL DESIGNER - 07/09/2022 2:00 PM EST The following medication changes and / or instructions from today include: - EKG today - EP referral for ICD - Follow up with Dr. Maxwell in 3 months 1. Continue to monitor weight first thing each morning. 2. Report to the [facility] [place] ([phone]) any significant weight change. Remember that weight change of 2 pounds in one day or 5 pounds in one week is significant and likely represents changes in fluid status. 3. If you are taking a diuretic (such as lasix, demadex, bumex), you should also restrict all sodium intake to 2000 milligrams (2 grams) a day. Depending on your status, you may also be asked to restrict fluid intake. If uncertain, ask the nurse or physician. 4. Regular aerobic exercise is encouraged 30 minutes a day (walking, bike, swimming, etc.). For specific exercise recommendations, ask your physician. 5. Report to CLINIC any change in symptoms (chest pain, worsening shortness of breath, increased dizziness or passing out, increased palpitations or ICD shock, trouble catching breath while lying down, increased edema or abdominal bloating). Remember that even minor changes in symptoms may be important. Also report any changes in medications including over the counter medications. 6. DO NOT take NSAID's for pain (i.e, Advil, Motrin, ibuprofen, and many more) since these may cause serious problems in those with a history of CHF. If uncertain about the medication, call us. 7. If you have new significant or ongoing diarrhea or vomiting, please hold your diuretic (examples: furosemide/Lasix, torsemide/Demadex, bumetanide/Bumex) and call our clinic for further instructions. Taking a diuretic (water pill) with these symptoms can worsen dehydration. Heart Failure Patient Education Resources [place] [employer] Heart Failure Nurses (AAHFN) www.aahfn.org [place] [employer] [email or web address]/workbooks Heart Failure Society of [place] (HFSA) www.hfsa.org documented in this encounter [facility] 07-09-2022 History of Presen t illness Narrative Definity Risk Screening: Explained Definity use to patient including potential side effects with emphasis on patient informing the RN/technologist if they develop any symptoms after administration. status: no Medication list reviewed. Known sensitivity to Perflutren or Polyethylene Glycol (PEG-containing products such as bowel preparations or laxatives): no Definity dose: 1.5 ml diluted with 8.5 ml saline (start with 1-2 ml, additional doses as needed) Total dose given: 2.5ml After administration of Definity contrast, the patient experienced no side effects and was without complaints. IV removed and intact. Adequate hemostasis achieved. documented in this encounter [facility] 06-11-2022 History of Presen t illness Narrative It is my pleasure to see your patient Kaylee Tariq , a 41 y.o. female , at [facility] Heart Failure Program for HFrEF. Ms. Kaylee Tariq is a 41 year old with history of: 1. HFrEF: ICM, LVEF 19% by cMRI in 03/2022 - Devices: None 2. CAD: - S/p PCI to ostial LAD in 03/2022 - Known TANK ERECTOR of proximal circumflex 3. DM1 4. Trisomy 21 She was last seen in the clinic 05/13/22. Went to the ED closer to home and received 2 liters of liquid. Her mom is with her and notes her SBP at home 70-114. She is not taking the torsemide. She denies dyspnea at rest, with exertion, orthopnea (sleeps on 1 pillows), PND, palpitations, lightheadedness, dizziness, presyncope, syncope, chest pain or edema. Her mom states she is nervous today not knowing what to expect. She has not had any fluids or food this am due to drive and appointment. She states her appetite is good and her fatigue has improved. She has not had any epistaxis. Her mother reports her BG are more in 200 range. ROS: All other ROS reviewed and are negative except as noted above. Current Outpatient Medications Medication Sig aspirin 81 MG Chew Tab chewable tablet Chew and swallow 1 tablet by mouth daily. escitalopram 5 MG tablet Take 1 tablet by mouth daily. levothyroxine 50 MCG tablet Take 1 tablet by mouth every morning before breakfast. Rosuvastatin 40 MG tablet Take 1 tablet by mouth daily with dinner. ticagrelor 90 MG tablet Take 1 tablet by mouth every 12 hours. Torsemide 20 MG tablet Take 1 tablet by mouth as needed. For weight over 140 lbs ammonium lactate 12 % Lotion lotion Apply 1 Application topically 2 times daily. (Patient not taking: Reported on 05/13/2022) Glucagon (Baqsimi Two Pack) 3 MG/DOSE Powder 3 mg by Nasal route As directed as needed. 3 mg (one actuation) into a single nostril for symptomatic low blood sugar; if no response, may repeat in 15 minutes using a new intranasal device. ondansetron 4 MG Tab Dispersible tablet Take 4 mg by mouth every 8 hours as needed. (Patient not taking: Reported on 06/11/2022) Physical Exam BP (!) 78/60 (BP Location: Left arm, BP Position: Sitting) Pulse 65 Ht 1.524 m (5') Wt 62.1 kg (137 lb) SpO2 99% BMI 26.76 kg/m Smoking Status Never , Wt Readings from Last 3 Encounters: 06/11/22 62.1 kg (137 lb) 05/13/22 60.9 kg (134 lb 3.2 oz) 04/20/22 64.9 kg (143 lb) , Body mass index is 26.76 kg/m . General/Constitutional: Well developed, well nourished female. No acute distress. HEENT: Head: Normocephalic and atraumatic. Neck: Supple, non-tender. Cardiac: No JVD. Regular rate and rhythm, NO MRG noted. Pulmonary/Chest: Lungs are clear bilaterally. Abdominal: + BS, NTND. No hepatomegaly. No hepatojugular reflux. Extremities: Normal range of motion in all four extremities. No cyanosis, clubbing, or peripheral edema. Peripheral Vascular Exam: Normal radial, posterior tibialis, and dorsalis pedis pulses. Neurological: Alert and oriented x 3. No focal neurologic deficit. Skin: Skin is warm and dry. Psychiatric: Appropriate mood and affect for her clinical situation. Summary of interventions Therapy Current Notes Diuretics Torsemide 20 as needed No taking Beta-vanessa None Held d/t low BP RAAS/ARNI Hydralazine/nitrates MRA No Held d/t low BP SGLT-2 inhibitor DM1 AAD Inotropes ICD/WOOD FILLER Did not tolerate Lifevest Labs: Lab Results Component Value Date SODIUM 136 04/09/2022 POTASSIUM 4.8 04/09/2022 CHLORIDE 97 (L) 04/09/2022 CO2 30 04/09/2022 BUN 18 04/09/2022 CREATSERUM 0.98 04/09/2022 Impression/Plan: 1. Suspect predominantly ischemic but there may be a non-ischemic component as well wit her recent viral illness / chronic systolic heart failure (NYHA Class II / ACC Stage C): - Unable to reinstitution of GDMT due to hypotension - Recommend hydration, even before getting out of bed in am - Hold torsemide, plan to use prn if weight at home is over 140 lbs - Echocardiogram end of June (3 months after PCI) to reassess LVEF. Consider primary prevention ICD at that time. Did not tolerate Lifevest - Follow up phone in 1 weeks with repeat blood pressures. Will slowly try to add in GDMT again 2. CAD - No anginal symptoms - Continue ticagrelor and aspirin for 1 year post PCI - Continue statin 3. Hypotension - Hold torsemide, encourage hydration 4. HLD - Continue rosuvastatin 40 mg daily - LDL at goal She will follow up in the clinic in 1 month and is to notify the office for any cardiovascular concerns prior to then. A written summary of today's visit, orders, and medication changes were given to the patient at the completion of this visit. The patient was in agreement with today's plan. Please do not hesitate to contact us with any questions. documented in this encounter [facility] 06-11-2022 Instructions ABRAN Gloria - 06/11/2022 10:30 AM EST The following medication changes and / or instructions from today include: - Keep track of home blood pressures for the next week and send in minicabitt message - Echocardiogram june - Follow up after echocardiogram - Stay hydrated 1. Continue to monitor weight first thing each morning. 2. Report to the [facility] [place] ([phone]) any significant weight change. Remember that weight change of 2 pounds in one day or 5 pounds in one week is significant and likely represents changes in fluid status. 3. If you are taking a diuretic (such as lasix, demadex, bumex), you should also restrict all sodium intake to 2000 milligrams (2 grams) a day. Depending on your status, you may also be asked to restrict fluid intake. If uncertain, ask the nurse or physician. 4. Regular aerobic exercise is encouraged 30 minutes a day (walking, bike, swimming, etc.). For specific exercise recommendations, ask your physician. 5. Report to CLINIC any change in symptoms (chest pain, worsening shortness of breath, increased dizziness or passing out, increased palpitations or ICD shock, trouble catching breath while lying down, increased edema or abdominal bloating). Remember that even minor changes in symptoms may be important. Also report any changes in medications including over the counter medications. 6. DO NOT take NSAID's for pain (i.e, Advil, Motrin, ibuprofen, and many more) since these may cause serious problems in those with a history of CHF. If uncertain about the medication, call us. 7. If you have new significant or ongoing diarrhea or vomiting, please hold your diuretic (examples: furosemide/Lasix, torsemide/Demadex, bumetanide/Bumex) and call our clinic for further instructions. Taking a diuretic (water pill) with these symptoms can worsen dehydration. Heart Failure Patient Education Resources [place] [employer] Heart Failure Nurses (AAHFN) www.aahfn.org [place] [employer] [email or web address]/workbooks Heart Failure Society of [place] (HFSA) www.hfsa.org documented in this encounter [facility] 06-08-2022 Telephone encounter Note Called pts mother and notified her of Dr. Maxwell's recommendations. She verbalizes understanding. [facility] 06-08-2022 Miscellaneous Notes Called pts mother and notified her of Dr. Maxwell's recommendations. She verbalizes understanding. REc'd voicemail on nurses line from pts mother. She states the pt is completely out of the following medications: ASA Lexapro Synthroid Crestor Brillinta VALENTE 05/13/22 06/11/22 Pertinent refills routed to Dr. Maxwell for renewal. documented in this encounter [facility] 06-08-2022 Telephone encounter Note REc'd voicemail on nurses line from pts mother. She states the pt is completely out of the following medications: ASA Lexapro Synthroid Crestor Brillinta VALENTE 05/13/22 06/11/22 Pertinent refills routed to Dr. Maxwell for renewal. [facility] 05-13-2022 History of Presen t illness Narrative We had the pleasure of seeing Ms. Kaylee Tariq in the Heart Failure Clinic at the [facility] on 05/12/2022. Referring physician: Dr. Estrada PCP - Dr. Estrada Pertinent Problem List: #HFrEF: ICM, LVEF 19% by cMRI in 03/2022 - Devices: None #CAD: - S/p PCI to ostial LAD in 03/2022 - Known TANK ERECTOR of proximal circumflex #DM1 #Trisomy 21 CC/HPI: Kaylee Tariq is a 41 y.o. year old female here for evaluation of heart failure. Patient presented to an OSH in 03/2022 for fevers and encephalopathy. Echo there showed an EF of 15% which was newly reduced from an EF of 65% in 09/2020. She was transferred to [facility] due to concern for myocarditis. Initial HS troponin was elevated and she underwent an urgent coronary angiogram that showed severe proximal LAD disease. She Underwent PCI to this vessel. She was also found to have a TANK ERECTOR of the proximal circumflex. LVEDP was found to be 45 on the catheterization. She was diuresed agressively. GDMT titration was limited by low blood pressures. A cardiac MRI was performed which showed predominantly ICM with non-viable myocardium along with elevated T2. Interval history: She was discharged at 145 lbs and is now 132 lbs. She has steadily lost weight. She has been dealing with elevated blood sugars recently. Over the past week, she has had nose bleeds. Blood pressures have been in the high 60's, mid 70's systolic. She has been having fatigue, LH/dizziness. She has been walking around the house ok. She denies chest pain or shortness of breath. She has been sleeping more lately. She denies LE edema. She sleeps with 1 pillow and denies orthopnea/pnd. She denies palpitations. She denies blood in stool. She did not tolerate the Lifevest due to anxiety/fear and has not been using it. Pertinent positive and negative systems are described in the HPI; the remaining of the 14 systems are negative. Past Medical/Surgical History: detailed in Problem List above Family History: Family History Problem Relation Age of Onset No known problems Mother No known problems Father Social History: Social History Tobacco Use Smoking status: Never Smokeless tobacco: Never Vaping Use Vaping Use: Never used Substance Use Topics Alcohol use: Yes Drug use: Never Medications: Current Outpatient Medications Medication Sig Dispense Refill ammonium lactate 12 % Lotion lotion Apply 1 Application topically 2 times daily. aspirin 81 MG Chew Tab chewable tablet Chew and swallow 1 tablet by mouth daily. 30 tablet 3 escitalopram 5 MG tablet Take 1 tablet by mouth daily. 30 tablet 1 Glucagon (Baqsimi Two Pack) 3 MG/DOSE Powder 3 mg by Nasal route As directed as needed. 3 mg (one actuation) into a single nostril for symptomatic low blood sugar; if no response, may repeat in 15 minutes using a new intranasal device. 2 Each 1 levothyroxine 50 MCG tablet Take 1 tablet by mouth every morning before breakfast. 30 tablet 1 metoprolol succinate 25 MG tablet XL Take 0.5 tablets by mouth daily. 30 tablet 1 ondansetron 4 MG Tab Dispersible tablet Take 4 mg by mouth every 8 hours as needed. rosuvastatin 40 MG tablet Take 1 tablet by mouth daily with dinner. 30 tablet 3 spironolactone 25 MG tablet Take 0.5 tablets by mouth daily. 15 tablet 3 ticagrelor 90 MG tablet Take 1 tablet by mouth every 12 hours. 60 tablet 3 torsemide 20 MG tablet Take 1 tablet by mouth daily. 30 tablet 3 No current facility-administered medications for this visit. Allergies: No Known Allergies Exam: Vitals: 05/13/22 1034 BP: (!) 62/42 Pulse: 52 SpO2: 98% Weight: 60.9 kg (134 lb 3.2 oz) Height: 1.524 m (5') Repeat manually Body mass index is 26.21 kg/m . Wt Readings from Last 5 Encounters: 04/20/22 64.9 kg (143 lb) 04/14/22 (P) 67.4 kg (148 lb 8 oz) 04/09/22 66.1 kg (145 lb 11.6 oz) General: Lethargic Head: Normocephalic, atraumatic Eyes: EOMI, no scleral icterus Cardiac: Bradycardic,, +S1/S2, no m/g/r. JVP not elevated at 90 degrees, no edema Respiratory: Clear to auscultation bilaterally, no r/c/w Abdomen: Soft, non-tender, non-distended MSK: Warm, well perfused. No gross deformities Neuro: A&OX3, no focal deficits Skin: No jaundice Psych: Normal affect Labs: Lab Results Component Value Date CHOLESTEROL 89 04/05/2022 TRIG 80 04/05/2022 HDL 27 (L) 04/05/2022 LDLCALC 46 04/05/2022 Lab Results Component Value Date ALT 31 04/03/2022 AST 40 (H) 04/03/2022 ALKPHOS 104 04/03/2022 GLUCOSE 211 (H) 04/09/2022 HGBA1C 7.7 (H) 04/05/2022 TSH 5.310 (H) 04/04/2022 Lab Results Component Value Date SODIUM 136 04/09/2022 POTASSIUM 4.8 04/09/2022 CHLORIDE 97 (L) 04/09/2022 CO2 30 04/09/2022 BUN 18 04/09/2022 CREATSERUM 0.98 04/09/2022 Lab Results Component Value Date BNP 900 (H) 04/06/2022 BNP 985 (H) 04/03/2022 INR 1.1 04/03/2022 Studies: Echocardiogram Date LVEF LVIDD IVS/PW RV LA RA/Valves/RVSP/Other 04/06/22 22 60 9/8 NML NML Severe HK/AK of all christopher except basal inferior, basal inferolateral segments (personally reviewed) Left heart catheterization/coronary angiogram Date LM LAD LCx RCA Other 04/04/22 Min Ostial 99%, mild elsewhere s/p PCI with 2.75x38 MADHURI Occluded prox, R-L collaterals Minimal LVEDP 42 Electrocardiogram Date Findings 04/14/22 Sinus with frequent PVC. Septal/lateral q waves (personally reviewed) Other cardiac imaging Date Type Findings 04/07/22 cMRI EF 19%, RVEF 34%. LGE with subendocardial to transmural fibrosis in all segments except basal inferior and inferolateral wall. Evidence of T2 Other pertinent testing Date Type Findings Impression: Kaylee Tariq is a 41 y.o. year old female here for evaluation and management of heart failure. Her heart failure is ischemic in etiology. The patient currently endorses NYHA class II-III symptoms and is dry on exam. Summary of interventions Therapy Current Notes Diuretics Torsemide 20 qd Beta-vanessa Succinate 12.5 qd RAAS/ARNI Hydralazine/nitrates MRA [place] 12.5 qd SGLT-2 inhibitor DM1 AAD Inotropes ICD/WOOD FILLER Did not tolerate Lifevest Problem List and Plan #Chronic Systolic Heart Failure: NYHA class II, warm/dry on exam - Suspect predominantly ischemic but there may be a non-ischemic component as well wit her recent viral illness - Profoundly hypotensive with lethargy - Stop metoprolol, stop spironolactone - Hold torsemide, plan to use prn if weight at home is over 140 lbs - Needs repeat echo 3 months after PCI to reassess LVEF. Consider primary prevention ICD at that time. Did not tolerate Lifevest - Sent patient to ED for symptomatic hypotension - Follow up phone in 1 to 2 weeks with repeat blood pressures. Will slowly try to add in GDMT again #CAD - No anginal symptoms - Continue ticagrelor and aspirin for 1 year post PCI - Continue statin #Hypotension - Suspect overdiuresis in the setting of hyperglycemia - ED evaluation as above - Switch torsemide to prn #HLD - Continue rosuvastatin 40 mg daily - LDL at goal #Epistaxis - Improving - If becomes recurrent issue, recommend ENT evaluation - Unable to stop DAPT at this time. Discussed importance of this with family We will see her back in clinic in 2 weeks or earlier if necessary. Please feel free to call if you have any questions. Elizabeth Maxwell MD Advanced Heart Failure/Transplant Cardiology documented in this encounter [facility] 05-13-2022 Instructions Elizabeth Maxwell MD - 05/13/2022 10:30 AM EST Please go to the ED for low blood pressure and likely dehydration Please have them evaluate the nose bleeds as well. She may need an ENT consult Please stop your torsemide. You can take it as needed if her weight is over 140 lbs Please stop your metoprolol and spironolactone Do not stop your aspirin or brilinta unless you talk to me first Echo at the end of June to re-assess heart function Follow up in 2 weeks with either me or my nurse practitioners documented in this encounter [facility] 05-06-2022 History of Presen t illness Narrative Images from the original note were not included. NOTE 1 Diabetes Self-Management Training: [facility] Endocrinology, Diabetes & Metabolism DSME TIME SPENT: 30 minutes Visit Size: 1 (Group barrier: Impaired mental status/cognition due to Down's syndrome) Insulin Pump Review: Omnipod 5 with Aspart insulin Kaylee Tariq is a 41 y.o. who lives with Type 1 Diabetes (T1D) diagnosed ~26 years ago. Relevant medical history per problem list includes: high cholesterol, CAD and Down's syndrome. Kaylee last attended comprehensive diabetes self-management training- none on file at [facility]. Referring provider for today's visit: Diane Fraga MD, P*. Accompanied by Self and mother Pam. Patient's mother Pam explained that patient has been wearing Omnipod pumps for years. She was recently switched over to Omnipod 5 at a local endocrinology appointment in [place] (Dr. Jeevan Hemphill at [facility]) on 05/04/22. Patient is not currently connected to Dexcom Clarity or Glooko. Agreed to send sharing/linking instructions to patient's mother via iwi. Patient is primarily following a Mediterranean/low sodium diet to assist with heart health. She and her mother Pam just started carb counting after switching to OP5 on 05/04/22. They are using the Blendspace alexa. Learning objective identified by Kaylee: Review of pump settings Hypoglycemia & Hyperglycemia In the past year, 1 episode(s) of DKA - in summer 2021 that occurred during a Staph infection at a Dexcom sensor site In the past year, 1 episode(s) hypoglycemia requiring treatment with the assistance of an additional person - patient's mother explained that patient's blood sugar dropped to 32 due to potentially too much insulin and she was given glucagon and the emergency squad was called Symptomatic hypoglycemia at 60 mg/dl. Treats with glucose tablets/juice. Common Food & Beverage Choices Breakfast Steel cut oatmeal + fruit or cashew yogurt and egg substitute Lunch Homemade soups, grilled chicken wrap Dinner [place], tuna, turkey, chicken, salads Snacks Popcorn, fruit, veggies, nuts, yogurt Beverages Water, coffee, soy milk, wine Physical Activity: stair climbing at home; may start cardio rehab at [facility] Diabetes Technology Insulin Pump: Omnipod 5 Continuous Glucose Monitor: Dexcom G6 Insulin Pump Settings - settings pulled from patient's OP5 controller; patient is not currently connected to Glooko therefore no Glooko report available Basal Rate(s) 0000 - 0.50 0300 - 0.40 1000 - 0.60 1500 - 0.90 1900 - 0.80 14.9 units Carb Ratio 0000 - 25 Sensitivity 0000 - 94 BG Target 0000 - 150 [150] 0600 - 120 [150] Active Insulin 3 hours High SG Alert Low SG Alert 250 70 Self reported weight (131#) Wt Calc TDD - 60 kg x 0.6 units/kg = 36 units Wt Basal Calc - 18 u Wt ICR Calc - 14 Wt ISF Calsc = 47 Date 04.23.22-05.06.22 Avg SG 185 Sensor Time 93% Time in Range 50% Above Target 48% Below Target 1% TDD units Basal / Bolus Avg Carbs / Day NOTE 2 Continuous Glucose Monitor Interactive Data Interpretation TIME SPENT: 20 minutes Visit Size: 1 (Group barrier: Impaired mental status/cognition due to Down's syndrome) CGM: Dexcom G6 - Full report scanned into Media Dates reviewed 04/23/22-05/06/22 Mean glucose: 185 Low alert : 70 High alert: 250 Rise/fall alert: off/off >180 mg/dl: 48% of readings TIR 70-180 mg/dl: 50% of readings <70 mg/dl: 1% of readings Interpretation Hypoglycemia pattern: none Hyperglycemia pattern: trends higher after 4am and continues throughout the day, spikes higher after 4pm and 10pm Observations / Comments / Discussion No repeats for high and low Dexcom alarms Hyperglycemia as a result of not enough insulin for all carbs consumed Under-estimation of carbs at times as patient's mother reported not knowing that fruit contains carbs Suggested Changes: - Add 15 minute repeat for low Dexcom alarm - Add 2 hour repeat for high Dexcom alarm -Work on more accuracy with carb counting - Work with [employer] support to ensure that both DexMountain Alarm G6 account and [email or web address] Clarity account are using the same user name and password - Link patient's [employer] account to [facility] Diabetes Self-Management Training Areas of Focus Carb counting for common foods Bolus calculator: dosing for meals and correction; always pressing use CGM when using the calculator Importance of pre-bolus before meals Dexcom repeats for alarms Data sharing via [employer] Data sharing via [employer] Assessment of the 9 ADA Topic Areas Diabetes assessment completed on 05/06/22 1. Diabetes Disease Process: Independent 2. Nutrition Management: Reviewed 3. Physical Activity: Independent 4. Medications: Reviewed 5. Monitoring Blood Glucose: Reviewed 6. Prevent, Detect & Treat Acute Complications: Independent 7. Prevent, Detect & Treat Chronic Complications: Independent 8. Healthy Coping: Independent 9. Strategies to Promote Health & Behavior Change: Reviewed Interest in healthy lifestyle change: 5 (5 is highest): Mmvs-[id number]-Rujfsfuxi self-assessment: Kaylee's response to education: actively participated in discussion Barriers to providing education: Impaired Mental Status / Cognition due to Down's syndrome Handouts Provided: ADA Choose Your Foods Carb Counting Book and CGM Report Patient and Caregiver Driven Goals Goal Status Taking Medicine: Enter carbs & press use CGM when using the bolus calculator at meals to calculate insulin needs Healthy Eating: Increase accuracy with carb counting at meals by utilizing Blendspace alexa and ADA Choose Your Foods book Baseline: 50% Baseline: 25% Diabetes Self-Management Support Plan: Remotely link pump &/or CGM to share data with clinic and Regular follow-up with [facility] Educator & Patient Agreed Goals 1. Monitor BG levels using CGM, aim to wear >85% of the time 2. Bolus 15 minutes before meals 3. Dose insulin consistently using the bolus calculator, limit manual boluses and overrides 4. Rotate pod sites and sensor sites to maintain healthy skin 5. Follow up education appointment on June 16, [address], LD, [facility] Diabetes Care & Chief Engineer Production documented in this encounter [facility] 04-14-2022 History of Presen t illness Narrative It is my pleasure to see your patient Kaylee Tariq , a 41 y.o. female , at [facility] for hospital f/u with recent admission from 04/03/22-04/09/22. history significant for Trisomy 21, diabetes mellitus type 1 on continuous insulin pump, and hypothyroidis who presented at the time of admission with severe LV dysfunction. The following describes her hospital course. Acute systolic heart failure with reduced ejection fraction in setting of coronary artery disease Initially suspected myocarditis as echocardiogram at [facility] revealed newly reduced EF 15% (prior cardiac MRI from 2020 showed no dysfunction). However, infectious evaluation was negative and in the setting of a syncopal episode patient was found to have elevated troponin >24k. LHC performed with LAD lesion s/p MADHURI, TANK ERECTOR of LCx, RCA with minimal disease. Cardiac MRI demonstrated diffuse transmural fibrosis without evidence of myocarditis. Patient started on GDMT with metoprolol 12.5 mg daily, spironolactone 12.5 mg daily in addition to torsemide 20 mg daily. For her CAD she was discharged on daily statin/aspirin and Ticagrelor twice daily. Titration of GDMT in the hospital was somewhat limited by low blood pressures. Type 1 diabetes mellitus on insulin pump at home Insulin pump was discontinued at OSH prior to transfer. She was placed on glargine with sliding scale insulin during admission with endocrinology management. Her A1c noted to be 7.7 as patient reported not taking mealtime insulin via insulin pump at home. Recommended to continue prior basal insulin via pump upon discharge with additional mealtime insulin. Fever with encephalopathy Resolved prior to admission, non-productive cough continued with negative infectious evaluation. HPI: She is here with her mother. She has Down's syndrome, is scared. 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 ROS: See HPI for pertinent positives and negatives. All other systems reviewed and are negative. Current Outpatient Medications Medication Sig ammonium lactate 12 % Lotion lotion Apply 1 Application topically 2 times daily. aspirin 81 MG Chew Tab chewable tablet Chew and swallow 1 tablet by mouth daily. escitalopram 5 MG tablet Take 1 tablet by mouth daily. Glucagon (Baqsimi Two Pack) 3 MG/DOSE Powder 3 mg by Nasal route As directed as needed. 3 mg (one actuation) into a single nostril for symptomatic low blood sugar; if no response, may repeat in 15 minutes using a new intranasal device. levothyroxine 50 MCG tablet Take 1 tablet by mouth every morning before breakfast. metoprolol succinate 25 MG tablet XL Take 0.5 tablets by mouth daily. ondansetron 4 MG Tab Dispersible tablet Take 4 mg by mouth every 8 hours as needed. rosuvastatin 40 MG tablet Take 1 tablet by mouth daily with dinner. spironolactone 25 MG tablet Take 0.5 tablets by mouth daily. ticagrelor 90 MG tablet Take 1 tablet by mouth every 12 hours. torsemide 20 MG tablet Take 1 tablet by mouth daily. Physical Exam BP (!) (P) 78/54 (BP Location: Right leg, BP Position: Sitting) Pulse (!) (P) 33 Ht (P) 1.549 m (5' 1 ) Wt (P) 67.4 kg (148 lb 8 oz) SpO2 (P) 97% BMI (P) 28.06 kg/m Smoking Status Never , Wt Readings from Last 3 Encounters: 04/09/22 66.1 kg (145 lb 11.6 oz) , Body mass index is 28.06 kg/m (pended). General/Constitutional: Well developed, well nourished female. No acute distress. HEENT: Head: Normocephalic and atraumatic. Neck: Supple, non-tender. Cardiac: No JVD or carotid bruits. Regular rate and rhythm, NO MRG noted. No peripheral edema. Pulmonary/Chest: Lungs are clear josefina. Abdominal: + BS, NTND. No hepatomegaly. No hepatojugular reflux. Extremities: Normal strength in all four extremities. No cyanosis or clubbing. Peripheral Vascular Exam: Extremities w/d x 4 Neurological: Alert and oriented x 3. No focal neurologic deficit. Skin: Skin is warm and dry. Psychiatric: Appropriate mood and affect for her clinical situation. Labs/CV Testing: Lab Results Component Value Date SODIUM 136 04/09/2022 POTASSIUM 4.8 04/09/2022 CHLORIDE 97 (L) 04/09/2022 CO2 30 04/09/2022 BUN 18 04/09/2022 CREATSERUM 0.98 04/09/2022 04/07/22 MRI FINAL IMPRESSION Severely enlarged left ventricle with severely reduced systolic function. Ischemic cardiomyopathy with subendocardial to transmural fibrosis in all myocardial segments except basal inferior and inferolateral wall. 41 year old female with h/o heart failure, diabetes, trisomy 21, hypothyroidism and concern for viral myocarditis; cardiac MRI for further evaluation. CARDIAC MRI LEFT VENTRICLE: Quantitative LVEF 19 %. LV cavity is severely enlarged. LV systolic function is severely decreased globally. VIABILITY: Late gadolinium enhancement demonstrates subendocardial to transmural fibrosis in all myocardial segments except basal inferior and inferolateral wall. RIGHT VENTRICLE: Quantitative RVEF 34 %. RV cavity size is normal. RV systolic function is moderately decreased globally. LV/RV SEPTUM: The ventricular septum is intact. LEFT ATRIUM: LA cavity size is normal. RIGHT ATRIUM: RA cavity size is normal. PERICARDIUM: There is a small pericardial effusion. There is a circumferential pericardial effusion. PLEURAL EFFUSION: There is a small left pleural effusion. There is a moderate right pleural effusion. AORTIC VALVE: Peak aortic valve velocity 1.23 m/sec. There is trivial aortic regurgitation. MITRAL VALVE: There is trivial mitral regurgitation. TRICUSPID VALVE: There is trivial tricuspid regurgitation. PULMONIC VALVE: There is trivial pulmonic regurgitation. AORTIC ROOT: The aortic root is normal on non MRA study OTHER FINDINGS: There is evidence of myocardial inflammation/edema on T2 mapping; however the findings are limited by motion and inadequate breath hold. ECV 41 % (normal < 31%) suggestive of diffuse interstitial expansion HF Medical & Device Therapy ACEI / ARB / ARNI:no Beta Vanessa:toprol 12.5 AA: spironolactone 12.5 Diuretic: Torsemide 20 ICD: Lifevest WOOD FILLER: No CardioMems: No SGLT2:no Impression 1. CM possibly ischemic and viral myocarditis / HFrEF, Dx 03/2022 (NYHA Class III/ ACC Stage C ): EF 15% (normal 2020), warm and dry 2. Trisomy 21 3. DM 4. LHC 04/04/22 CAD, TANK ERECTOR prox Cx, collateral from RCA to LAD, MADHURI to LAD 5. ECG today Sinus with PVC's, her lifevest has alarmed several times and the mother has turned alarm off as instructed. I called the rep (Bill) and he looked at her remotes and she has had PVC's but no VT Plan 1. Continue ASA, statin, brilinta 2. HF GDMT will be difficult with low BP, mother is watching fluid intake so can consider decreasing torsemide to allow increase in BP 3. Pharmacy will assist with GDMT 4. Continue lifevest 5. F/U up Dr. Maxwell 2-3 weeks. A written summary of today's visit, orders, and medication changes were given to the patient at the completion of this visit. The patient was in agreement with today's plan. Glynn Abrams CNP [facility] Heart Failure Service documented in this encounter [facility] 04-09-2022 Miscellaneous Notes Patient and family received AVS instructions, which RN reviewed along with medication list provided by physician at bedside. Patient denies any further questions or concerns. Peripheral IV & telemetry discontinued per physician order. Patient tolerated procedure without difficulty. Patient denies having any medications secured in medication room upon admission. Patient discharged home via wheelchair with belongings and copy of discharge instructions accompanied by hospital staff. No signs or symptoms of distress noted. 04/06/22 1528 Barriers to Discharge Barriers to Discharge Physician Decision Explanation of Barriers Medically not stable. Medical Milestone Medical Milestones Remaining In need of Cardiac MRI Discharge Planning Anticipated discharge disposition Home .mle 04/06/22 1024 Important Message from Medicare Was Important Message from Medicare Given Yes Important Message from Medicare Given To Patient Method Which Important Message from Medicare Was Provided In-Person Was the Important Message from Medicare Faxed to [facility] N/A Tammy HERNANDEZ MBA Clinical Air Liaison And Special Staff 2 Ross Daily Rounding Plan of Care The following multidisciplinary plan of care was discussed with the attending service regarding Kaylee Tariq. Today's Plan of Care: Continue diuresis, GDMT, topical for skin infection. Cardiac Monitoring Current Cardiac Monitoring order: no Renewal order indicated yes 4 hour telemetry recall: Trigeminy Oxygen O2 Sat (%): 95 % (04/05 1433) O2 Device: room air (04/05 1700) LDAs The type, length of duration and necessity of all lines and drains listed below was reviewed, in order to prevent any possible sources of infection and encourage timely removal. - [place] indicated: No - Central line indicated: No Patient Lines/Drains/Airways Status Active Lines, Drains, Airways, & Wound Overview Name Placement date Placement time Site Days Peripheral IV Line - Single Lumen 04/03/222019 metacarpal vein (top of hand), left 20 gauge 04/03/222019 -- 1 Wound Other (comment) 04/03/222020 Lateral;Right;Upper Back 04/03/222020 Back 1 Wound Sheath Site 04/04/22 1215 Right Radial 04/04/22 1215 Radial 1 Mobility Activity plan: with minor assitance PT/OT: yes Need for DVT prophylaxis: yes Consults/Discharge Planning Social Work: yes Case Management needs: yes Cardiac rehab: no Estimated Discharge: Date Unknown Sheridan Brock RN Problem: OT - ADLs Goal: Toileting Description: Pt will complete toileting task including clothing management with independence for improved ability to safely complete self-care activities. Outcome: Ongoing Goal: Bathing Description: Pt will perform full body bathing routine with independence while standing for improved ability to complete self-care activities. Outcome: Ongoing Problem: OT - Endurance Goal: Endurance Functional Mobilty Around Home Description: Pt will complete distance needed for limited community mobility with independence. Outcome: Ongoing Goal: Endurance Functional Task Standing Description: Pt will engage in standing functional task for 10 minutes with independence to improve activity tolerance necessary for safe ADL completion at recommended discharge destination. Outcome: Ongoing Problem: OT - Transfers Goal: Transfers Toilet/Bedside Commode Description: Pt will transfer to/from toilet/BSC with independence for improved ability to safely complete ADLs. Outcome: Ongoing Problem: PT - Mobility Goal: Ambulation Description: Pt will ambulate 250 feet with least restrictive device with modified independence to improve ability to navigate home environment. Outcome: Ongoing Goal: Stairs Description: Pt will ascend/descend 13 stairs with railings with supervision with least restrictive device to improve ability to perform functional mobility necessary in recommended discharge environment. Outcome: Ongoing Problem: PT - Transfers Goal: Sit <-> Stand Description: Pt will perform sit to/from stand transfers with independence with out an assistive device in order to improve functional mobility and safety. Outcome: Ongoing Transfer Note PATIENT: Kaylee Tariq ADMIT DATE: 04/03/2022 Subjective History Kaylee Tariq is a 41 y.o. female with PMH of Trisomy 21, DM type 1 w/inslin pump, hypothyroidism who presents today as a transfer from [facility] with new EF 15%. 03/28: Presented to [facility] with fever, encephalopathy and non-productive cough x 1 week. Infectious workup negative. TTE revealed newly reduced EF of 15% 04/03: Transferred to [facility], admitted to HF2. 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 LVEDP severely elevated. Transferred to HF1. Medications SCHEDULED: acetaminophen (TYLENOL) tablet, , ammonium lactate (LAC-HYDRIN) 12 % lotion 1 Application, 1 Application, BID aspirin chewable tablet 81 mg, 81 mg, Daily Enoxaparin Sodium (LOVENOX) injection 40 mg, 40 mg, Daily escitalopram (LEXAPRO) tablet 5 mg, 5 mg, Daily furOSEmide (LASIX) injection 80 mg, 80 mg, BID AC insulin glargine injection 10 Units, 10 Units, Daily insulin lispro (HumaLOG) injection, , 4x daily w/meals, HS levothyroxine (SYNTHROID) tablet 50 mcg, 50 mcg, Before BKF ticagrelor (BRILINTA) tablet 90 mg, 90 mg, Q12H FLUIDS/DRIPS: tirofiban 0.15 mcg/kg/min (04/04/22 1134) PRNs: acetaminophen, 650 mg, Q6H PRN alum/mag hydrox.-simethicone, 30 mL, Q6H PRN benzocaine-menthol, 1 lozenge, Q2H PRN insulin lispro, , PRN And dextrose, 7.5-25 g, As directed PRN And glucose, 1-2 Tube, As directed PRN melatonin, 6 mg, QHS PRN ondansetron, 4 mg, Q8H PRN polyethylene glycol, 17 g, Daily PRN Polyvinyl Alcohol-Povidone PF, 1 drop, Q1H PRN sodium chloride 0.9%, 250 mL, PRN ALLERGIES: She has no allergies on file. Objective Findings Vital Signs (24hrs): Temp: [97.4 F (36.3 C)-98.1 F (36.7 C)] 97.4 F (36.3 C) Pulse (Heart Rate): [30-104] 95 Resp Rate: [13-29] 17 BP: (95-138)/(66-106) 122/89 O2 Sat (%): [91 %-99 %] 97 % Weight: [77.2 kg (170 lb 1.6 oz)-77.2 kg (170 lb 3.1 oz)] 77.2 kg (170 lb 3.1 oz) Hemodynamic/Invasive Device Data (24 hrs): Pulmonary/Cardiac Hemodynamics Pulse (Heart Rate): 95 Neuro ICP/CPP Monitoring MAP (mmHg): 102 mmHg Neuro ICP/CPP Monitoring 2 MAP (mmHg): 102 mmHg Ventilation/Oxygen Therapy (24hrs): Oxygen Therapy O2 Sat (%): 97 % O2 Device: room air Lines/Drains/Airways/Wounds: Patient Lines/Drains/Airways Status Active Lines, Drains, Airways, & Wound Overview Name Placement date Placement time Site Days Peripheral IV Line - Single Lumen 04/03/222019 metacarpal vein (top of hand), right 20 gauge 04/03/222019 -- less than 1 Peripheral IV Line - Single Lumen 04/03/222019 metacarpal vein (top of hand), left 20 gauge 04/03/222019 -- less than 1 Wound Other (comment) 04/03/222020 Lateral;Right;Upper Back 04/03/222020 Back less than 1 Wound Sheath Site 04/04/22 1215 Right Radial 04/04/22 1215 Radial less than 1 Fluid Management (24hrs): -Intake/Output last 3 shifts: I/O last 3 completed shifts: In: 800 [P.O.:800] Out: 650 [Urine:650] Physical Examination: Gen: NAD, well-appearing HENT: NCAT, EOMI, MMM Cardio: RRR, normal S1/S2, no murmur, good distal pulses Resp: CTA b/l, no increased WOB GI: Soft, NT, ND, normal BS MSK: no joint swelling or erythema Ext: warm and well-perfused, no LE edema Neuro: Alert and oriented, moving all four extremities Diagnostic Results Labs-ABGs Labs-CBC WBC/Hgb/Hct/Plts: 4.69/11.4/34.6/253 (04/04 208) Labs-Chem 7(PMC) Bun/Creat/Cl/CO2/Glucose: 13/0.69/101/24/327 (04/04 357-04/04 719) Na/K+/Phos/Mg/Ca: 134/4.4/2.3/1.5/7.9 (04/03 2217-04/04 0753) Labs-Coags Ptt/Pt/Inr: 31.6/14.1/1.1 (04/03 2217) Additional Labs Lab Results Component Value Date BNP 985 (H) 04/03/2022 No results found for: TROP No results found for: CHOLESTEROL, TRIG, HDL Assessment & Plan Kaylee Tariq is a 41 y.o. female with PMH of Trisomy 21, DM type 1 w/inslin pump, hypothyroidism who presents as a transfer from [facility] with new EF 15% concerning for viral myocarditis. Course complicated by NSTEMI with subsequent PCI to LAD. Major Updates Today: - S/p MADHURI to LAD - IV Lasix 80 mg BID - Continue Ticagrelor/ASA - Afterload reduction: Hydralazine 25 mg TID Acute systolic heart failure (HFrEF) Unknown etiology Patient presented to OSH on 03/28 with a week of fever, encephalopathy and non-productive cough. TTE revealed newly reduced EF 15%. Concern for myocarditis given negative infectious workup, but concern for acute viral illness. Patient also with new CAD found during admission after syncopal episode on 04/04 and subsequent workup revealing HsTrop > 24,000. LHC revealed ostial LAD lesion, now s/p PCI. Systolic dysfunction could be multifactorial in the setting of ischemic disease and inflammatory viral myocarditis. - Cardiac MRI ordered - Continue diuresis NSTEMI CAD s/p PCI to LAD 04/04, patient with syncopal event and subsequent troponin elevation to 24,643. EKG without ST changes. Taken emergently to [facility] which revealed ostial lesion in the LAD, now s/p MADHURI. Risk factors include T1DM. - Continue Ticagrelor 90 mg BID - Continue ASA 81 mg daily - Will need high-intensity statin for secondary prevention prior to discharge - T1DM management as below T1DM Patient diagnosed at age 15. Uses insulin pump/Dexcom sensor at home. Mother has pump supplies at home, currently not being used. - Continue Lantus 10 units daily - SSI carb coverage/correction - A1c ordered - Diabetes consult for re-initiation of insulin pump Dermatophyte Infection - R shoulder - Derm consulted, appreciate recs - Prn calomine lotion - Clotrimazole cream BID Hypothyroidism - Continue levothyroxine 50 mcg daily Code Status: Full Code DVT Prophylaxis: Diet: Carb Controlled Dispo: Home after diuresis, possible cardiac MRI for myocarditis evaluation This plan was discussed with Timothy Marks MD on rounds. Elisa Barrera MD PGY2 - Internal Medicine Patient admitted to [facility] for NSTEMI post LAD stent. Patient alert & oriented x4. No complaints of pain/SOB at this time. VSS, SR w/ freq PVC's on telemetry. Orders reviewed. Resident notified of patient arrival. Admissions questions asked and completed to the best ability of the patient at this time. ? On admission to , from [facility] a dual RN initial assessment of skin condition was performed by Sheridan Brock RN and Kathy Warner RN Skin Assessment: Skin not within defined limits. - Wound(s) identified: Yes Chau Score: 18 LDA Added: No. Previous LDA in chart. Sheridan Brock RN Patient will be transferred to [facility] from label folder. Report called to Anna BISHOP.Gosia Dunbar RN Discussed case with heart failure team. Concern for large NSTEMI with severely elevated troponin and severely reduced LV ejection fraction. Attempted to contact next of kin mother for consent however unavailable on three attempts. Given clinical situation will deem emergent and proceed with left heart catheterization and ad hoc PCI. Will obtain assent from patient and full consent if deemed to have a good grasp of the risks, procedure, and alternatives. I certify that this patient requires inpatient services at this time. I anticipate the expected length of stay will include at least two midnights. Inpatient services are due to the following medical concerns acute systolic heart failure. Plans for post hospitalization care will be discharge to home. La Nena Galo, LISS-APPAREL DESIGNER HF2/Advanced Heart Failure Phone: [phone] Pt arrived with transport from OSH with personal belongings to RM [id number] on 6 . Pt arrived with two blankets and a jacket. Mom (primary caregiver) called to provide update and mom denied any questions at this time. Family plans to arrive tomorrow morning. Pt oriented to room and call light, denies pain, vitals stable. Pt resting comfortably in bed. Team notified of pt's arrival and report given. Awaiting orders from team. On admission to , from OSH a dual RN initial assessment of skin condition was performed by Sofia Cho RN and Jeniffer BISHOP. Skin Assessment: NOT WDL *PIVs present from OSH, red patch on upper R shoulder (OSH stated it's a bug bite) LDA Added:Itz Cho RN documented in this encounter [facility] 04-09-2022 Note Formatting of this n ote might be different from the original. Patient and family received AVS instructions, which RN reviewed along with medication list provided by physician at bedside. Patient denies any further questions or concerns. Peripheral IV & telemetry discontinued per physician order. Patient tolerated procedure without difficulty. Patient denies having any medications secured in medication room upon admission. Patient discharged home via wheelchair with belongings and copy of discharge instructions accompanied by hospital staff. No signs or symptoms of distress noted. [facility] 04-09-2022 History of Presen t illness Narrative Images from the original note were not included. [facility] ([facility] Note: Discharge medications delivered to patient at bedside. Suhail Cassidy [facility] [phone] [facility] [phone] [facility] [phone] [place] [phone] [place] [phone] [place] [phone] Bedside Delivery ([facility]) [phone] Inpatient Cardiac Rehab Consultation Completed. RN approved, as tolerated, and patient agreeable to visit. Patient reports feeling Ok without complaints. Activity Session Vitals: amb held at this time d/t patient discharging. Just needed to receive education on how to care for her stent as she returns home and information about cardiac rehab. Positioning Seated EoB, call light within reach RN notified/aware. Encouraged continued ambulation and discussed appropriate activity progression. Patient participation in outpatient cardiac rehab was discussed. Patient is interested in participating in rehab at their local facility: [facility]. Discharge education provided to the patient. Printed materials provided/reviewed: Care after heart cath (wrist). Patient s questions/concerns were addressed and topics below were discussed. 1. Pathophysiology of CAD/NM 2. Left Heart Cath 3. Target Lipid Profile 4. Heart Healthy Dietary Guidelines 5. Cardiac Medications 6. Signs/Symptoms to Monitor/Report 7. Risk Factor Modification/Reduction 8. Activity Guidelines/Recommendations We will continue to follow up with patient as needed until discharge for education review and activity progression. Andria Ng MS ([id number]) IP Cardiopulmonary Rehab Images from the original note were not included. [facility] Inpatient Diabetes Consult - Team 2 *If paging after 6pm please check on [employer], under IM Consult Serv, Endocrine/Diabetes , and call the person listed Diabetes Att Day * Impression: Uncontrolled Type 1 Diabetes Mellitus (T1D) admitted with acute onset new Heart Failure DM microvascular complications: peripheral neuropathy A1c on 03/10/2022: 7.6% Basal dose decreased this morning. If she does go home today then please wait until tomorrow morning to resume the Omnipod insulin pump, preferably around 9AM as that is when the next dose of basal would be due. Diabetes Inpatient Plan: Basal: Insulin glargine: 10->9 units qam Prandial: Initiate with Insulin lispro: 1 unit per 10 gram carbs qachs & prn Correction: Insulin lispro: 1 unit(s) per every 50 mg/dL above 150 mg/dL qachs Note: Patient has T1D so does not need a carb control diet Diabetes Education: none today Diabetes Health Maintenance BP goal is < 140/90 LDL cholesterol goal is < 100 mg/dL. Needs statin therapy based on duration of disease. Reminded to complete annual Gcddrsn-fk-Qgvsnzlyxp Ratio and eye, dental & foot exams Review vaccination history. Diabetes Discharge Planning: She will resume her Omnipod insulin pump after she gets home, at 24 hours after last dose of insulin glargine. Please give her the information pasted just below regarding setting up a custom food bolus or a preset manual bolus. We can also send this as a iwi message if they wish. She does not need scripts for insulin vials for the pump She will need a prescription for glucagon. Please order Baqsimi Follow up needed: (note if an internal consult is requested then please include this specific wording in the consult request) o Please enter a consult to Diabetes Education for management of Omnipod DASH pump and preparation for transition to OP5 o I will contact DM Education to ask them to contact Kaylee & her mother about coordinating a visit when they come for a cardiology appt. Thank you for allowing us to participate in your patients care. If you have questions please check on [employer], under IM Consult Serv, Endocrine/Diabetes , and call the person listed for Team 2 as directed. We will follow glucose trends with you and make recommendations as indicated. Insulin Pump Information: Create Custom Foods: Preset Manual Bolus: CC: uncontrolled hyperglycemia and insulin pump Date of admission: 04/03/2022 Admission diagnosis: Heart Failure, R/O Viral Myocarditits History of Present Illness: Kaylee Tariq is a 41 y.o. year old female with Type 1 Diabetes Mellitus (T1D) diagnosed age 15 who is seen in consultation at the request of Timothy Marks MD for assistance with evaluation of hyperglycemia and to make treatment recommendations. She was interviewed at her bedside in [place]. She is transferred from outside hospital for evaluation of new onset Class 4 Heart Failure. Her T1D is typically managed with an Omnipod pump + Dexcom CGM. She is in process of upgrading to the OP5 HCL System. However, she has not used her pump since she was asked at OSH on Mar 29, 2022 to remove the pump. She is awake, alert and interactive. She tells me she is eating without problems. No symptoms of hypoglycemia over last 24 hours. She is feeling good today and hoping to go home. BG range is 49-352 mg/dl then 238 this morning. Dosing for carb coverage reviewed and appears appropriate. It is really not clear to me why she was low at 8pm. She did rebound high then was in the 200s overnight. Her regimen appears to be bolus heavy but that may be related to the correction doses, which was a total of 10 units yesterday. Since BG has been trending down we will decrease the basal to 9 units this morning and request dosing for carbs as close to time of meal or snack as possible. Current insulin orders: Basal: Insulin glargine 10 units daily Prandial: 1 unit for every 10 grams of carbs AC/HS/PRN Correction: 1 unit per 50 mg/dl above 150 mg/dl Insulin dosing over the last 24 hours: Glargine: 10 units Lispro: 8+7+3+5+2 = 25 units Current Diet Orders Procedures DIET CARB CONTROLLED Standing Status: Standing Number of Occurrences: 1 Glucose Review: Diabetes History Lab Results Component Value Date HGBA1C 7.7 (H) 04/05/2022 Diagnosis (aprox date): Age 15 ( 1993) Family History: unknown Outpatient Clinic: Dr. Jonah Hemphill, [place], [place] Home regimen: Humalog insulin per Omnipod pump Upload not available Noninsulin injectables: none Orals: none BP: none Heart Failure: none Lipids: none Vitamin D none Thyroid Levothyroxine 50 mcg daily Diabetes Complications: none known and peripheral neuropathy ACR normal in 2020 Date of most recent dilated eye exam: unknown DKA occurrences: unknown Home blood glucoses: glucose meter: Dexcom Immunization History Administered Date(s) Administered COVID-19 vaccine, mRNA, Moderna, 100 mcg/0.5 mL 07/04/2020, 07/31/2020, 05/02/2021 Pneumococcal Polysac 23-Valent Vaccine 12/19/2008 Past Medical History: Diagnosis Date Acquired hypothyroidism Insulin pump 02/2022 Omnipod 5 Trisomy 21 syndrome Type 1 diabetes mellitus (T1D) 1995 Type 1 diabetes mellitus with diabetic polyneuropathy VSD (ventricular septal defect) HOSPITAL MEDS: ammonium lactate 1 Application Topical BID aspirin 81 mg Oral Daily enoxaparin 40 mg Subcutaneous Daily escitalopram 5 mg Oral Daily insulin glargine injection 10 Units Subcutaneous Q24H insulin lispro Subcutaneous 4x daily w/meals, HS levothyroxine 50 mcg Oral Before BKF [Held by provider] losartan 25 mg Oral Daily metoprolol succinate 12.5 mg Oral Daily polyethylene glycol 17 g Oral Daily rosuvastatin 40 mg Oral Every dinner senna 8.6 mg Oral Daily spironolactone 25 mg Oral Daily terbinafine 1 Application Topical BID ticagrelor 90 mg Oral Q12H torsemide 40 mg Oral Daily ALLERGIES: has no allergies on file. ROS: see HPI. She reports no symptoms of fatigue, polyuria/polydipsia or blurry vision. All other systems negative. INFUSIONS: none Physical Exam General/Constitutional: WDWN overweight female, who looks her stated age of 41 y.o.. No acute distress. Vital Signs: BP 102/73 (BP Location: Left arm, BP Position: Lying) Pulse 90 Temp 97.9 F (36.6 C) (Oral) Resp 16 Ht 1.549 m (5' 1 ) Wt 69.6 kg (153 lb 6.4 oz) Comment: standing weight SpO2 90% BMI 28.98 kg/m Smoking Status Never , Wt Readings from Last 3 Encounters: 04/08/22 69.6 kg (153 lb 6.4 oz) , Body mass index is 28.98 kg/m . HEENT: Head: Normocephalic and atraumatic. Mucous membranes moist. Neck: Supple, non-tender, mild acanthosis nigricans. Cardiac: regular rhythm, normal rate. Pulmonary/Chest: respirations even and unlabored with normal respiratory effort Abdomen: Soft, non-tender, non-distended Extremities: No peripheral edema. Neurological: Conscious, alert and interactive. Skin: Skin is warm and dry. Procedure / Imaging / Lab Data: Pertinent procedure/imaging/lab data was reviewed: Lab Results Component Value Date HGBA1C 7.7 (H) 04/05/2022 Lab Results Component Value Date CHOLESTEROL 89 04/05/2022 TRIG 80 04/05/2022 HDL 27 (L) 04/05/2022 LDLCALC 46 04/05/2022 Lab Results Component Value Date SODIUM 137 04/08/2022 POTASSIUM 4.2 04/08/2022 CHLORIDE 95 (L) 04/08/2022 CO2 33 (H) 04/08/2022 BUN 19 04/08/2022 CREATSERUM 0.98 04/08/2022 GLUCOSE 220 (H) 04/08/2022 No results found for: CREATURINE, MICROALBUMIN, MICALBCREAT Lab Results Component Value Date ALT 31 04/03/2022 No results found for: PREALBUMIN ECHO: Results for orders placed during the hospital encounter of 04/03/22 ECHOCARDIOGRAM LIMITED/FOLLOWUP 04/06/2022 (Final) Interpretation Summary Left ventricular size is mildly enlarged at end-systole. Severe hypokinesis to akinesis of all segments, sparing the basal inferior and basal inferolateral segments. Pattern of contractility and appearance of the ventricular function is most consistent with a non-ischemic cardiomyopathy, despite presence of known coronary disease. Ejection fraction +/-22% consistent with severe systolic dysfunction. Left atrium visually appears normal in size Right ventricle is normal in size and function. Right atrium visually appears normal in size Valve structures are consistent with age. Function not assessed Further study details described below No results found for: [id number] [facility] Inpatient Diabetes Consults - Progress Note- TEAM 2 *If paging after 6pm please check on [employer], under IM Consult Serv, Endocrine/Diabetes , and call the person listed Diabetes Att Day * Assessment Impression: Uncontrolled Type 1 Diabetes Mellitus complicated by peripheral neuropathy Admitted with acute onset new Heart Failure Hx of Trisomy 21, hypothyroidism Insulin pump - not in use, pump not at the bedside to be downloaded A1c on 03/10/2022: 7.6% Plan 1. Hospital Plan: Patient hypoglycemic on 04/06 and doses reduced. Unclear reason for hypoglycemia, now clearly hyperglycemic. Will keep glargine at 10 units today (received 10 units yesterday as well). Continue carb coverage for now Basal: Insulin glargine: 8->10 units qam Prandial: Insulin lispro: 1 unit per 10 gram carbs qachs & prn Correction: Insulin lispro: 1 unit(s) per every 50 mg/dL above 150 mg/dL qachs 2. Discharge Plan: Please call on day of d/c for definitive recs. Please see [employer],under IM Consult Serv Endocrine/Diabetes - Team 2 Diab Consults for provider on day of discharge. Likely on her insulin pump 3. Follow up needed: Patient and family would like to establish with [facility]. Dr. Fraga will schedule the patient into her clinic for follow up as well as for diabetes education. 4. Education: Discussed carb counting or at least a fixed dose of lispro with meals at discharge. 5. Will review glucoses and discuss with Dr Fraga Thank you for allowing us to participate in your patient's care. If you have questions please check on [employer], under IM Consult Serv, Endocrine/Diabetes , and call the person listed for Team 2 as directed I spent greater than 50% of 34 minutes providing diabetes management services to Kaylee Tariq today independent of procedures and other care providers. My time managing this patient included review of interval history, laboratories, and glucose trends; performing a physical examination; coordinating daily diabetes plan and potential discharge; diabetes education; and managing hyperglycemia. CC: hyperglycemia History of Present Illness: Kaylee Tariq is a 41 y.o. year old female who is seen at the bedside with her mom at the bedside. Patient's mom reports that the patient has been on an insulin pump for many years but does not carb count. They will give correction for post prandial hyperglycemia. They have established with a new data governance consultant who prescribed the Omnipod 5, but they have been unable to schedule training. Patient lives at home with mom, but has been independent with her insulin pump. Mom feels that she needs more oversight. She is interested in learning to carb count and sees the benefit to bolusing for meals. Share code generated for patient's dexcom, however no data associated with the account. Mom would like patient to establish with [facility] and [facility]. Patient's mom will not be able to bring the patient's insulin pump to the hospital prior to discharge. Patient felt hypoglycemic while I was at the bedside. She drank a juice while waiting for a fingerstick. Fingerstick was 352. Reviewed breakfast, did not receive coverage for a juice which was about 15 grams of carbs. Current Diet Orders Procedures DIET CARB CONTROLLED Standing Status: Standing Number of Occurrences: 1 Current Regimen: Basal: Insulin glargine: 8 units qam Prandial: Insulin lispro: 1 unit per 10 gram carbs qachs & prn Correction: Insulin lispro: 1 unit(s) per every 50 mg/dL above 150 mg/dL qachs Daily Glucose Review: Date Daily glucose review TDD Basal Prandial/ Correction 04/04/2022 307, 311, 327, 198, 202, 205 30 10 20 04/05/2022 139, 149, 307, 208, 167 39 10 29 04/06/22 100, 130, 285, 261, 91, 42, 66, 92, 114 26 10 16 04/07/22 220/267, 357, 404, 298 Review of Systems Diabetes: Negative for symptoms of hypoglycemia Physical Exam Constitutional: Well-developed, well-nourished, and in no distress. Pulmonary/Chest: Effort normal Musculoskeletal: Normal range of motion in visualized extremities Neurological: Alert and interactive Psych: Cooperative Temp: [97.6 F (36.4 C)-98.2 F (36.8 C)] 98.1 F (36.7 C) Pulse (Heart Rate): [83-97] 96 Resp Rate: [16-18] 16 BP: (72-87)/(44-57) 82/52 O2 Sat (%): [94 %-98 %] 98 % Weight: [69.6 kg (153 lb 6.4 oz)-73.6 kg (162 lb 4.1 oz)] 69.6 kg (153 lb 6.4 oz)Admission/Adult (Dosing) Weight: 77.2 kg (170 lb 1.6 oz) Most recent entered Weight: 69.6 kg (153 lb 6.4 oz) (standing weight) Body mass index is 28.98 kg/m . Background History Kaylee Tariq is a 41 y.o. year old female with Type 1 Diabetes Mellitus (T1D) diagnosed age 15 who is seen in consultation at the request of Elizabeth Maxwell MD for assistance with evaluation of hyperglycemia and to make treatment recommendations. She was interviewed at her bedside in [place]. She is transferred from outside hospital for evaluation of new onset Class 4 Heart Failure. Her T1D is typically managed with an Omnipod pump + Dexcom CGM. She is in process of upgrading to the [address] System. However, she has not used her pump since she was asked at OSH on Mar 29, 2022 to remove the pump. On arrival to [facility], her glucose was 238, bicarb 25, Cr 0.86, BHB nd, and WBC 4.44. She was eating but now is NPO to go to label folder. We have initiated basal bolus insulin this morning, based on weight + historical pump settings. When her mother is here we will speak with her about getting her pump and CGM data to review. Diabetes History: Type of Diabetes: Type 1 Diabetes Mellitus (T1D) Diagnosis (aprox date): Age 15 ( 1993) Family History: unknown Outpatient Clinic: Dr. Jonah Hemphill, [place], [place] Home regimen: Humalog insulin per Omnipod pump Upload not available Noninsulin injectables: none Orals: none BP: none Heart Failure: none Lipids: none Vitamin D none Thyroid Levothyroxine 50 mcg daily Diabetes Complications: none known and peripheral neuropathy ACR normal in 2020 Date of most recent dilated eye exam: unknown DKA occurrences: unknown Home blood glucoses: glucose meter: Dexcom Recent A1c: Lab Results Component Value Date HGBA1C 7.7 (H) 04/05/2022 Lab Results Component Value Date CHOLESTEROL 89 04/05/2022 TRIG 80 04/05/2022 HDL 27 (L) 04/05/2022 LDLCALC 46 04/05/2022 Lab Results Component Value Date SODIUM 137 04/08/2022 POTASSIUM 4.2 04/08/2022 CHLORIDE 95 (L) 04/08/2022 CO2 33 (H) 04/08/2022 BUN 19 04/08/2022 CREATSERUM 0.98 04/08/2022 GLUCOSE 352 (H) 04/08/2022 No results found for: CREATURINE, MICROALBUMIN, MICALBCREAT Lab Results Component Value Date ALT 31 04/03/2022 No results found for: PREALBUMIN Cardiac echo: EF = No results found for this or any previous visit. DIABETES EDUCATION CONSULT Kaylee Tariq is a 41 y.o. female admitted 04/03/2022. Consult received for diabetes education. Met with pt today to review DM learning needs, barriers, and self management plan. Pt was sitting up in chair, awake, alert and oriented x 3, zero s/sx of acute distress noted at the time of this encounter, pt's mother was present at her bedside and actively participated in DM education. DM History: Pt reports Type 1 DM x 26 yr, with prior DM education. Managed with insulin per Endo. . Last seen 02/2022 Monitoring glucose several/day, pt has CGM, reports to pcp. . Usual results are : results were unavailable, pt could not recall. Denied difficulties obtaining medication and supplies. Known Complications include: Unknown For diabetes medication taking include: Please see pt's medication profile below. Prior to Admission medications Medication Sig Start Date End Date Taking? Authorizing Provider ammonium lactate 12 % Lotion lotion Apply 1 Application topically 2 times daily. Historical Provider escitalopram 5 MG tablet Take 5 mg by mouth daily. 03/16/22 Historical Provider levothyroxine 50 MCG tablet Take 50 mcg by mouth every morning before breakfast. Historical Provider ondansetron 4 MG Tab Dispersible tablet Take 4 mg by mouth every 8 hours as needed. 01/11/22 Historical Provider Wt Readings from Last 1 Encounters: 04/08/22 69.6 kg (153 lb 6.4 oz) Body mass index is 28.98 kg/m . Lab Results Component Value Date HGBA1C 7.7 (H) 04/05/2022 GLUCOSE 352 (H) 04/08/2022 LDLCALC 46 04/05/2022 CREATSERUM 0.98 04/08/2022 Assessment/Plan: Type1 DM Uncontrolled: For inpatient diabetes medication management, please see Endocrinology - DM team notes and plan of care. Ambulatory referral for Endocrinology follow-up after discharge(pt will f/u with won Endo) DM Education - Continue to reinforce inpatient education. Ambulatory referral for outpatient diabetes education class (pt will f/u with outside Endo) Pt states has been living with diabetes for twenty-six years (approx date of ) PMH: She has a past medical history of Acquired hypothyroidism, Insulin pump (02/2022), Trisomy 21 syndrome, Type 1 diabetes mellitus (T1D) (1995), Type 1 diabetes mellitus with diabetic polyneuropathy, and VSD (ventricular septal defect). Intervention: (Diabetes Education: Diabetes Education Booklet and Carbohydrate counting guide left at bedside. Nursing staff to continue to reinforce Diabetes Education - follow teaching points in [facility] DM Patient Education and document under patient education. Patient educated on hyperglycemia and hypoglycemia s/sx: Goals: Pt can identify signs and symptoms of hyperglycemia and hypoglycemia and how to treat. Target A1c to be <7% Fasting glucose to be 130 mg/dl and before meals, <180 mg/dl the rest of the day. Pt's goals for better outcomes:Zero goal set at the time of this encounter. I encouraged to practice carb/portion diet, monitor for ketone when blood glucose is consistently elevated at 250 mg/dl or higher, urine testing for ketone discussed, pt's mom verbalized understanding.. Glucometer Glucometer at home working no glucometer needed Insulin: Pt has insulin pump. Nutrition: - Carb control/count: able to or agreeable ? YES - Adequate knowledge or some knowledge of diet and meal planning? NO Portion control, moderation, what a carbohydrate is and where they are found are reviewed. How carbohydrates effect blood glucose is also reviewed. How to read nutrition labels with a focus on serving size and total carbs are discussed. The plate method is used for visual Food journal: Breakfast: Lunch: Dinner: Snacks: Beverage of choice: Exercise Daily exercise goal set: Zero goal set at the time of this encounter. We reviewed that a goal of .20-30 minutes of physical activity should be incorporated into daily routine: frequency, intensity, time, and type are reviewed. Time could be broken up into two-three 10 minutes sessions as tolerated by pt. Pt was encouraged to take at least 10 minutes walk after meals to reduce glucose spike post prandial. This would be above and beyond activities of daily living. Pending approval of the PCP. Follow Up Follow up with outpatient Diabetes Education Classes (pt will f/u with own Endo) Referral to Diabetes Clinic (f/u with outside Endo clinic) Supplies Needed at Discharge Alcohol swabs, insulin Evaluation Pt seen at her bedside today; we were able to review previous DM education: Self monitoring blood sugar (SMBG) pt has CGM. . We discussed before meals and bedtime, we also reviewed how to use BG levels to dose insulin before meals at home. The plan is to educate pt and mom on appropriate use of pt's insulin pump, insulin pump education provided by REMOTE SENSING SPECIALIST. Ongoing support needed. Thank you, Nensah Warren [employer]VE [employer]TER-INSULATION [facility] [employer]/Endo. Diabetes & nMetabolism Heart Failure 1 Progress Note PATIENT: Kaylee Tariq ADMIT DATE: 04/03/2022 Subjective History No acute events overnight. Did note a dry cough this morning. Some soft BP overnight and this morning, held ARB in setting of this with hope to start beta-blockers. Patient reports overall feeling improved from a breathing standpoint. Medications SCHEDULED: ammonium lactate (LAC-HYDRIN) 12 % lotion 1 Application, 1 Application, BID aspirin chewable tablet 81 mg, 81 mg, Daily Enoxaparin Sodium (LOVENOX) injection 40 mg, 40 mg, Daily escitalopram (LEXAPRO) tablet 5 mg, 5 mg, Daily insulin glargine injection 8 Units, 8 Units, Q24H insulin lispro (HumaLOG) injection, , 4x daily w/meals, HS levothyroxine (SYNTHROID) tablet 50 mcg, 50 mcg, Before BKF losartan (COZAAR) tablet 25 mg, 25 mg, Daily polyethylene glycol (MIRALAX) packet 17 g, 17 g, Daily rosuvastatin (CRESTOR) tablet 40 mg, 40 mg, Every dinner senna (SENOKOT) tablet 8.6 mg, 8.6 mg, Daily spironolactone (ALDACTONE) tablet 25 mg, 25 mg, Daily terbinafine (lamISIL) 1 % cream 1 Application, 1 Application, BID ticagrelor (BRILINTA) tablet 90 mg, 90 mg, Q12H FLUIDS/DRIPS: PRNs: acetaminophen, 650 mg, Q6H PRN alum/mag hydrox.-simethicone, 30 mL, Q6H PRN benzocaine-menthol, 1 lozenge, Q2H PRN Calamine-Zinc Oxide, 1 Application, PRN insulin lispro, , PRN And dextrose, 7.5-25 g, As directed PRN And glucose, 1-2 Tube, As directed PRN magnesium oxide, 800 mg, As directed PRN Magnesium Sulfate IVPB, 4 g, As directed PRN melatonin, 6 mg, QHS PRN ondansetron, 4 mg, Q6H PRN polyethylene glycol, 17 g, Daily PRN Polyvinyl Alcohol-Povidone PF, 1 drop, Q1H PRN potassium chloride, 20-40 mEq, As directed PRN potassium chloride, 40-60 mEq, As directed PRN sodium chloride 0.9%, 250 mL, PRN ALLERGIES: She has no allergies on file. Objective Findings Vital Signs (24hrs): Temp: [97.9 F (36.6 C)-98.2 F (36.8 C)] 97.9 F (36.6 C) Pulse (Heart Rate): [83-96] 96 Resp Rate: [16-18] 16 BP: (72-119)/(44-75) 82/52 O2 Sat (%): [94 %-97 %] 94 % Weight: [73.6 kg (162 lb 4.1 oz)] 73.6 kg (162 lb 4.1 oz) Hemodynamic/Invasive Device Data (24 hrs): Pulmonary/Cardiac Hemodynamics Pulse (Heart Rate): 96 Neuro ICP/CPP Monitoring MAP (mmHg): (!) 62 mmHg Neuro ICP/CPP Monitoring 2 MAP (mmHg): (!) 62 mmHg Ventilation/Oxygen Therapy (24hrs): Oxygen Therapy O2 Sat (%): 94 % O2 Device: room air Lines/Drains/Airways/Wounds: Patient Lines/Drains/Airways Status Active Lines, Drains, Airways, & Wound Overview Name Placement date Placement time Site Days Peripheral IV Line - Single Lumen 04/03/222019 metacarpal vein (top of hand), left 20 gauge 04/03/222019 -- 4 Wound Other (comment) 04/03/222020 Lateral;Right;Upper Back 04/03/222020 Back 4 Fluid Management (24hrs): -Intake/Output last 3 shifts: I/O last 3 completed shifts: In: 1330 [P.O.:1330] Out: 2550 [Urine:2550] Physical Examination: Gen: NAD, well-appearing HENT: NCAT, EOMI, MMM Cardio: RRR, normal S1/S2, no murmur, good distal pulses. No JVD at 90 degrees, minimal HJR Resp: CTA b/l, no increased WOB GI: Soft, NT, ND, normal BS MSK: no joint swelling or erythema Ext: warm and well-perfused, no BLLE edema Neuro: Alert and oriented, moving all four extremities Diagnostic Results Labs-ABGs Labs-CBC WBC/Hgb/Hct/Plts: 4.65/11.7/34.4/249 (04/08 507) Labs-Chem 7(PMC) Bun/Creat/Cl/CO2/Glucose: 19/0.98/95/33/271 (04/08 507-04/08 06) Na/K+/Phos/Mg/Ca: 137/4.2/--/1.9/-- (04/08 507) Labs-Coags Additional Labs Lab Results Component Value Date BNP 900 (H) 04/06/2022 BNP 985 (H) 04/03/2022 No results found for: TROP Lab Results Component Value Date CHOLESTEROL 89 04/05/2022 TRIG 80 04/05/2022 HDL 27 (L) 04/05/2022 Recent Results (from the past 3650 days) INVASIVE CARDIOVASCULAR PROCEDURE 04/04/2022 (Needs Review) Access: Right radial artery with 6 FR sheath. Left Heart Catheterization / Coronary angiogram: It is a right dominant system. 1. The left main has minimal disease. 2. The LAD has one diagonal. Ostial and proximal serial lesions up to 99%. Mild disease elsewhere. Distal vessel fills late via right to left collaterals. 3. The LCx occludes proximally. Distal vessel fills late via right to left collaterals. 4. The RCA is moderate caliber. There is minimal coronary artery disease. 5. LVEDP is 42 mm Hg; there is no aortic valve gradient Results for orders placed during the hospital encounter of 04/03/22 ECHOCARDIOGRAM LIMITED/FOLLOWUP 04/06/2022 (Final) Interpretation Summary Left ventricular size is mildly enlarged at end-systole. Severe hypokinesis to akinesis of all segments, sparing the basal inferior and basal inferolateral segments. Pattern of contractility and appearance of the ventricular function is most consistent with a non-ischemic cardiomyopathy, despite presence of known coronary disease. Ejection fraction +/-22% consistent with severe systolic dysfunction. Left atrium visually appears normal in size Right ventricle is normal in size and function. Right atrium visually appears normal in size Valve structures are consistent with age. Function not assessed Assessment & Plan Kaylee Tariq is a 41 y.o. female with PMH of Trisomy 21, DM type 1 w/inslin pump, hypothyroidism who presents as a transfer from [facility] with new EF 15% concerning for viral myocarditis. Course complicated by NSTEMI with subsequent PCI to LAD. Major Updates Today: - Cardiac MRI demonstrated non-viability with transmural fibrosis - Stop losartan, start 12.5 metoprolol in setting of HFrEF 2/2 ICM - Transition to oral diuretics with torsemide 40 mg daily - Titration of insulin therapy per diabetes consult team Acute systolic heart failure (HFrEF) 2/2 ICM Presented to OSH on 03/28 with fever/encephalopathy and non-productive cough. TTE revealed newly reduced EF 15%. Concern for myocarditis however negative infectious eval. Syncopal episode on 04/04, trop > 24k. LHC revealed ostial LAD lesion, now s/p PCI in addition to TANK ERECTOR of LCx. Etiology likely 2/2 CAD with no evidence of myocarditis on cardiac MRI 04/07. - Transition to oral diuretics on 04/08, 40 mg torsemide daily - GDMT: losartan 25 mg On 04/07 (held), metoprolol succinate 12.5 mg on 04/08, spironolactone 25 mg daily; hold SGLT2i with T1DM NSTEMI CAD s/p PCI to LAD 04/04 troponin elevation to 24,643. EKG without ST changes. Taken emergently to C which revealed ostial lesion in the LAD, now s/p MADHURI and LCx with TANK ERECTOR, RCA with minimal disease. Risk factors include T1DM. LDL on admission 46. - Continue Ticagrelor 90 mg BID - Continue ASA 81 mg daily - Rosuvastatin 40 mg daily (started this admission) - T1DM management as below T1DM Patient diagnosed at age 15. Uses insulin pump/Dexcom sensor at home. Mother has pump supplies at home, currently not being used. A1C 7.7 on admission - Continue Lantus + SSI per Endo/Diabetes consult - Patient's sister interested in diabetes education for patient and her mother Dermatophyte Infection of R shoulder - Derm consulted, appreciate recs - PRN calomine lotion - Clotrimazole cream BID Hypothyroidism - Continue levothyroxine 50 mcg daily Acute hypoxic respiratory failure (Resolved) - Previously noted on 04/04 with 2L via NC. No evidence of respiratory failure on exam at this time, unclear etiology for prior oxygen requirement since resolved. Code Status: Full Code DVT Prophylaxis: lovenox Diet: Carb Controlled Dispo: Continues to be hospitalized for management of HFrEF 2/2 ICM This plan was discussed with Timothy Marks MD on rounds. Associated attestation - Timothy Marks MD - 04/08/2022 4:07 PM EST I saw and personally examined the patient today with the resident on rounds. I discussed the findings and therapeutic plan with the resident. I agree with the history, examination, and medical decision making as noted by the resident. Briefly: Ms. Tariq is a 41 year old female with history of Trisomy 21, diabetes mellitus type 1 on continuous insulin pump, and hypothyroidism. She was recently admitted at an outside facility after presenting with fevers and encephalopathy, as well as cough. During that admission she tested negative for SARS-CoV2 and influenza. She had an echocardiogram, which demonstrated severe LV dysfuncion. She was presumed to have myocarditis. She was transferred here for further evaluation. After arrival here, she had a troponin level checked, which was markedly elevated. She was taken emergently for LHC given concern for possible acute ischemic cardiomyopathy / ACS. Her LHC demonstrated high grade serial LAD lesions with tapered distal vessel, TANK ERECTOR of the proximal Lcx system, and normal caliber, dominant RCA with R-->L collaterals to the distal LAD and Lcx territory. She had imaging-guided MADHURI placed to the ostial and proximal LAD lesion (2.75 mm, PD 3.0). Her LVEDP was noted to be markedly elevated to 42 mmHg without AV gradient. She was subsequently transferred to our service for further management. 24 hour events: - Diuresed well overnight - Cardiac MRI with diffuse ischemic infarct pattern and diffuse edema. - Feels well today, appears mildly hypervolemic today but close to euvolemia Problem List: Systolic heart failure: unclear chronicity but Mri with diffuse ischemic infarct. Suspect long-standing given collaterals from RCA to left system. Presenting elevated troponin may represent demand injury vs. Acute on chronic ischemia. Less likely myocarditis on background of infarcted ventricle. Type 1 diabetes mellitus on insulin pump at home Recent history of fevers, encephalopathy--resolved Trisomy 21 syndrome Plan: - Torsemide 40 mg PO x1 today. Will evaluate standing diuretic dose at discharge based on response and renal function today - Endocrinology team following for DM management - Continue aspirin, ticagrelor for > 1 year - Continue rosuvastatin 40 mg daily - Given low BP, will stop losartan - Start metoprolol succinate 12.5 mg once daily from today - Continue spironolactone to 25 mg daily - Continue terbinafine cream BID x 4 weeks per dermatology recommendations for shoulder tinea corporis Timothy Marks MD Advanced Heart Failure and Cardiac Transplant Program [facility] Inpatient Diabetes Consults - Progress Note- TEAM 2 *If paging after 6pm please check on [employer], under IM Consult Serv, Endocrine/Diabetes , and call the person listed Diabetes Att Day * Assessment Impression: Uncontrolled Type 1 Diabetes Mellitus complicated by peripheral neuropathy Admitted with acute onset new Heart Failure Hx of Trisomy 21, hypothyroidism Insulin pump - not in use, pump not at the bedside to be downloaded A1c on 03/10/2022: 7.6% Plan 1. Hospital Plan: Hypoglycemia after carb coverage at lunch yesterday. Will reduce prandial insulin She had to drink 2 juice and ate dinner + bedtime snack without carb coverage before glucose was >120 mg/dl. Will reduce basal dose for tomorrow. Should be okay she received higher dose today as she ate breakfast without carb coverage and glucose in 400s. If family is able to bring insulin pump we can download to obtain data and assist on placing her back on her pump when ready Basal: Insulin glargine: 10->8 units qam Prandial: Insulin lispro: 1 unit per 8->10 gram carbs qachs & prn Correction: Insulin lispro: 1 unit(s) per every 50 mg/dL above 150 mg/dL qachs 2. Discharge Plan: Please call on day of d/c for definitive recs. Please see [employer],under IM Consult Serv Endocrine/Diabetes - Team 2 Diab Consults for provider on day of discharge. Likely on her insulin pump 3. 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 Education: discussed plan for the day. 5. Will review glucoses and discuss with Dr Fraga Thank you for allowing us to participate in your patient's care. If you have questions please check on [employer], under IM Consult Serv, Endocrine/Diabetes , and call the person listed for Team 2 as directed CC: hyperglycemia History of Present Illness: Kaylee Tariq is a 41 y.o. year old female who is NOT seen at the bedside as she is in cardiac MRI testing. Called bedside nurse to review plan of care. Yesterday her glucose dropped 42 mg/dl at 1642 after appropriate carb coverage and insulin timing. She drank 2 juices and glucose annabelle to 93 mg/dl. She then ate 52 grams at dinner without carb coverage with glucose increasing to 114 mg/dl. She also ate a 20 gram snack at bedtime without carb coverage with glucose this morning of 357 mg/dl which she received correction. She was suppose to be NPO for cardiac MRI this morning, but ended up eating pancakes off her breakfast tray (65 grams) not covered. Glucose increased to 404 mg/dl. Nursing went down to MRI to give correction and when she came back from MRI her glucose is 298 mg/dl. She ate lunch and received carb coverage. Is 226 mg/dl prior to dinner. Current Diet Orders Procedures DIET CARB CONTROLLED Standing Status: Standing Number of Occurrences: 1 Current Regimen: Basal: Insulin glargine: 10 units qam Prandial: Insulin lispro: 1 unit per 8 gram carbs qachs & prn Correction: Insulin lispro: 1 unit(s) per every 50 mg/dL above 150 mg/dL qachs Daily Glucose Review: Date Daily glucose review TDD Basal Prandial/ Correction 04/04/2022 307, 311, 327, 198, 202, 205 30 10 20 04/05/2022 139, 149, 307, 208, 167 39 10 29 04/06/22 100, 130, 285, 261, 91, 42, 66, 92, 114 26 10 16 04/07/22 220/267, 357, 404, 298 Review of Systems - not seen +hypoglycemia to 42 documented at 1642 on 04/06/22 Physical Exam - not seen 04/07/22 Temp: [97.9 F (36.6 C)-98.5 F (36.9 C)] 98.1 F (36.7 C) Pulse (Heart Rate): [83-98] 83 Resp Rate: [16-18] 18 BP: (72-119)/(44-75) 72/44 O2 Sat (%): [93 %-100 %] 97 % Weight: [71.5 kg (157 lb 9.6 oz)] 71.5 kg (157 lb 9.6 oz)Admission/Adult (Dosing) Weight: 77.2 kg (170 lb 1.6 oz) Most recent entered Weight: 71.5 kg (157 lb 9.6 oz) (standing) Body mass index is 29.78 kg/m . Background History Kaylee Tariq is a 41 y.o. year old female with Type 1 Diabetes Mellitus (T1D) diagnosed age 15 who is seen in consultation at the request of Elizabeth Maxwell MD for assistance with evaluation of hyperglycemia and to make treatment recommendations. She was interviewed at her bedside in [place]. She is transferred from outside hospital for evaluation of new onset Class 4 Heart Failure. Her T1D is typically managed with an Omnipod pump + Dexcom CGM. She is in process of upgrading to the OP5 HCL System. However, she has not used her pump since she was asked at [facility] on Mar 29, 2022 to remove the pump. On arrival to [facility], her glucose was 238, bicarb 25, Cr 0.86, BHB nd, and WBC 4.44. She was eating but now is NPO to go to label folder. We have initiated basal bolus insulin this morning, based on weight + historical pump settings. When her mother is here we will speak with her about getting her pump and CGM data to review. Diabetes History: Type of Diabetes: Type 1 Diabetes Mellitus (T1D) Diagnosis (aprox date): Age 15 ( 1993) Family History: unknown Outpatient Clinic: Dr. Jonah Hemphill, [place], [place] Home regimen: Humalog insulin per Omnipod pump Upload not available Noninsulin injectables: none Orals: none BP: none Heart Failure: none Lipids: none Vitamin D none Thyroid Levothyroxine 50 mcg daily Diabetes Complications: none known and peripheral neuropathy ACR normal in 2020 Date of most recent dilated eye exam: unknown DKA occurrences: unknown Home blood glucoses: glucose meter: Dexcom Recent A1c: Lab Results Component Value Date HGBA1C 7.7 (H) 04/05/2022 Lab Results Component Value Date CHOLESTEROL 89 04/05/2022 TRIG 80 04/05/2022 HDL 27 (L) 04/05/2022 LDLCALC 46 04/05/2022 Lab Results Component Value Date SODIUM 137 04/07/2022 POTASSIUM 4.3 04/07/2022 CHLORIDE 96 (L) 04/07/2022 CO2 33 (H) 04/07/2022 BUN 19 04/07/2022 CREATSERUM 1.11 04/07/2022 GLUCOSE 298 (H) 04/07/2022 No results found for: CREATURINE, MICROALBUMIN, MICALBCREAT Lab Results Component Value Date ALT 31 04/03/2022 No results found for: PREALBUMIN Cardiac echo: EF = No results found for this or any previous visit. Diabetes Education Consult Note: Kaylee Tariq is a 41 y.o patient admitted on on 04/03/2022, consult received for diabetes education to review learning needs, barriers, and diabetes self-management plan, DM education attempted today, pt was off unit for test/procedure. I will continue to follow-up. Thank you, Lorri Warren APRN - [facility] Locomotive Firer/Endo. Diabetes & Metabolism Introduced self and role of the electric wheelchair repairer to patient's sister. Provided emotional and spiritual support and she responded by sharing their experience and discussed: - Meaning of illness - Hopes, fears, expectations Forest Pathologist provided: - Supportive presence - Active listening - Validation of feelings/emotions Chaplains are available 24 hours a day and 7 days a week. For urgent matters in [facility], please page [phone]. If the request is not urgent, please enter a consult. Consults are responded to within 24 hours. Khushi Welsh M.Div. Staff Forest Pathologist Department of [employer] and CPE 07/12 On-call Pager [phone] 04/07/22 1344 Clinical Encounter Type Visited With Family;Patient not available Visit Type Introduction Pastoral Time Spent 15 min Spiritual Assessment Emotional Observation Sad Hope Observation Searching for hope Support Observation By Family Interventions Provided Active listening;Supportive presence Facilitated Verbalization of feelings;Sharing hopes & fears Explored Meaning of illness;Expectations Outcomes Family Outcomes Progressed towards acceptance Plan of Care Continue Visiting PRN Heart Failure 1 Progress Note PATIENT: Kaylee Tariq ADMIT DATE: 04/03/2022 Subjective History Kaylee Tariq is a 41 y.o. female with PMH of Trisomy 21, DM type 1 w/inslin pump, hypothyroidism who presents today as a transfer from [facility] with new EF 15%. Net negative > 2 L yesterday. Unable to get cardiac MRI as she was still unable to lie completely flat. No fevers, chills. Still with some cough. Medications SCHEDULED: ammonium lactate (LAC-HYDRIN) 12 % lotion 1 Application, 1 Application, BID aspirin chewable tablet 81 mg, 81 mg, Daily Enoxaparin Sodium (LOVENOX) injection 40 mg, 40 mg, Daily escitalopram (LEXAPRO) tablet 5 mg, 5 mg, Daily furOSEmide (LASIX) injection 100 mg, 100 mg, BID AC insulin glargine injection 10 Units, 10 Units, Daily insulin lispro (HumaLOG) injection, , 4x daily w/meals, HS levothyroxine (SYNTHROID) tablet 50 mcg, 50 mcg, Before BKF losartan (COZAAR) tablet 25 mg, 25 mg, Daily polyethylene glycol (MIRALAX) packet 17 g, 17 g, Daily rosuvastatin (CRESTOR) tablet 40 mg, 40 mg, Every dinner senna (SENOKOT) tablet 8.6 mg, 8.6 mg, Daily spironolactone (ALDACTONE) tablet 25 mg, 25 mg, Daily terbinafine (lamISIL) 1 % cream 1 Application, 1 Application, BID ticagrelor (BRILINTA) tablet 90 mg, 90 mg, Q12H FLUIDS/DRIPS: PRNs: acetaminophen, 650 mg, Q6H PRN alum/mag hydrox.-simethicone, 30 mL, Q6H PRN benzocaine-menthol, 1 lozenge, Q2H PRN Calamine-Zinc Oxide, 1 Application, PRN insulin lispro, , PRN And dextrose, 7.5-25 g, As directed PRN And glucose, 1-2 Tube, As directed PRN magnesium oxide, 800 mg, As directed PRN Magnesium Sulfate IVPB, 4 g, As directed PRN melatonin, 6 mg, QHS PRN ondansetron, 4 mg, Q6H PRN polyethylene glycol, 17 g, Daily PRN Polyvinyl Alcohol-Povidone PF, 1 drop, Q1H PRN potassium chloride, 20-40 mEq, As directed PRN potassium chloride, 40-60 mEq, As directed PRN sodium chloride 0.9%, 250 mL, PRN ALLERGIES: She has no allergies on file. Objective Findings Vital Signs (24hrs): Temp: [98 F (36.7 C)-98.5 F (36.9 C)] 98 F (36.7 C) Pulse (Heart Rate): [84-98] 94 Resp Rate: [14-18] 16 BP: (83-99)/(48-66) 90/66 O2 Sat (%): [93 %-100 %] 93 % Weight: [71.5 kg (157 lb 9.6 oz)-76.2 kg (167 lb 15.9 oz)] 71.5 kg (157 lb 9.6 oz) Hemodynamic/Invasive Device Data (24 hrs): Pulmonary/Cardiac Hemodynamics Pulse (Heart Rate): 94 BSA (Calculated - sq m): 1.75 m2 Neuro ICP/CPP Monitoring MAP (mmHg): 73 mmHg Neuro ICP/CPP Monitoring 2 MAP (mmHg): 73 mmHg Ventilation/Oxygen Therapy (24hrs): Oxygen Therapy O2 Sat (%): 93 % O2 Device: room air Oxygen Delivery/Consumption Hemodynamics BSA (Calculated - sq m): 1.75 m2 Lines/Drains/Airways/Wounds: Patient Lines/Drains/Airways Status Active Lines, Drains, Airways, & Wound Overview Name Placement date Placement time Site Days Peripheral IV Line - Single Lumen 04/03/222019 metacarpal vein (top of hand), left 20 gauge 04/03/222019 -- 3 Wound Other (comment) 04/03/222020 Lateral;Right;Upper Back 04/03/222020 Back 3 Wound Sheath Site 04/04/22 1215 Right Radial 04/04/22 1215 Radial 2 Fluid Management (24hrs): -Intake/Output last 3 shifts: I/O last 3 completed shifts: In: 890 [P.O.:890] Out: 4750 [Urine:4750] Physical Examination: Gen: NAD, well-appearing HENT: NCAT, EOMI, MMM Cardio: RRR, normal S1/S2, no murmur, good distal pulses. JVD is present Resp: CTA b/l, no increased WOB GI: Soft, NT, ND, normal BS MSK: no joint swelling or erythema Ext: warm and well-perfused, no LE edema Neuro: Alert and oriented, moving all four extremities Diagnostic Results Labs-ABGs Labs-CBC WBC/Hgb/Hct/Plts: 5.57/12.1/35.8/255 (04/07 106) Labs-Chem 7(PMC) Bun/Creat/Cl/CO2/Glucose: 19/.11/96/33/267 (04/07 106-04/07 536) Na/K+/Phos/Mg/Ca: 137/4.3/--/1.9/-- (04/07 106) Labs-Coags Additional Labs Lab Results Component Value Date BNP 900 (H) 04/06/2022 BNP 985 (H) 04/03/2022 No results found for: TROP Lab Results Component Value Date CHOLESTEROL 89 04/05/2022 TRIG 80 04/05/2022 HDL 27 (L) 04/05/2022 Recent Results (from the past 3650 days) INVASIVE CARDIOVASCULAR PROCEDURE 04/04/2022 (Needs Review) Access: Right radial artery with 6 FR sheath. Left Heart Catheterization / Coronary angiogram: It is a right dominant system. 1. The left main has minimal disease. 2. The LAD has one diagonal. Ostial and proximal serial lesions up to 99%. Mild disease elsewhere. Distal vessel fills late via right to left collaterals. 3. The LCx occludes proximally. Distal vessel fills late via right to left collaterals. 4. The RCA is moderate caliber. There is minimal coronary artery disease. 5. LVEDP is 42 mm Hg; there is no aortic valve gradient Results for orders placed during the hospital encounter of 04/03/22 ECHOCARDIOGRAM LIMITED/FOLLOWUP 04/06/2022 (Final) Interpretation Summary Left ventricular size is mildly enlarged at end-systole. Severe hypokinesis to akinesis of all segments, sparing the basal inferior and basal inferolateral segments. Pattern of contractility and appearance of the ventricular function is most consistent with a non-ischemic cardiomyopathy, despite presence of known coronary disease. Ejection fraction +/-22% consistent with severe systolic dysfunction. Left atrium visually appears normal in size Right ventricle is normal in size and function. Right atrium visually appears normal in size Valve structures are consistent with age. Function not assessed Assessment & Plan Kaylee Tariq is a 41 y.o. female with PMH of Trisomy 21, DM type 1 w/inslin pump, hypothyroidism who presents as a transfer from [facility] with new EF 15% concerning for viral myocarditis. Course complicated by NSTEMI with subsequent PCI to LAD. Major Updates Today: - IV lasix 100 mg BID - Spironolactone 25 mg daily - Continue losartan 25 mg daily - Cardiac MRI Acute systolic heart failure (HFrEF) Concern for acute myocarditis Patient presented to OSH on 03/28 with a week of fever, encephalopathy and non-productive cough. TTE revealed newly reduced EF 15%. Concern for myocarditis given negative infectious workup, but concern for acute viral illness. Patient also with new CAD found during admission after syncopal episode on 04/04 and subsequent workup revealing HsTrop > 24,000. LHC revealed ostial LAD lesion, now s/p PCI. Systolic dysfunction could be multifactorial in the setting of ischemic disease and possible viral myocarditis given her prodromal symptoms - Cardiac MRI ordered to evaluate for possible myocarditis, patient will need to lie flat for this - Diruesis with IV lasix 100 mg BID, aim for -2L daily - GDMT: naiive on admission; started losartan 25 mg daily, spironolactone 25 mg daily; beta-vanessa before discharge though not immediately given low EF; will hold on SGLT2i with T1DM NSTEMI CAD s/p PCI to LAD 04/04, patient with syncopal event and subsequent troponin elevation to 24,643. EKG without ST changes. Taken emergently to [facility] which revealed ostial lesion in the LAD, now s/p MADHURI. Risk factors include T1DM. LDL on admission 46. - Continue Ticagrelor 90 mg BID - Continue ASA 81 mg daily - Started rosuvastatin 40 mg daily - T1DM management as below T1DM Patient diagnosed at age 15. Uses insulin pump/Dexcom sensor at home. Mother has pump supplies at home, currently not being used. A1C 7.7 on admission - Continue Lantus 10 units daily - SSI carb coverage/correction - Diabetes consult for re-initiation of insulin pump - Patient's sister interested in diabetes education for patient and her mother Dermatophyte Infection - R shoulder - Derm consulted, appreciate recs - Prn calomine lotion - Clotrimazole cream BID Hypothyroidism - Continue levothyroxine 50 mcg daily Code Status: Full Code DVT Prophylaxis: lovenox Diet: Carb Controlled Dispo: Home after diuresis, cardiac MRI for myocarditis evaluation This plan was discussed with Timothy Marks MD on rounds. Felix Farris MD Internal Medicine Residency PGY-[address] [facility] Associated attestation - Timothy Marks MD - 04/07/2022 5:41 PM EST I saw and personally examined the patient today with the resident on rounds. I discussed the findings and therapeutic plan with the resident. I agree with the history, examination, and medical decision making as noted by the resident. Briefly: Ms. Tariq is a 41 year old female with history of Trisomy 21, diabetes mellitus type 1 on continuous insulin pump, and hypothyroidism. She was recently admitted at an outside facility after presenting with fevers and encephalopathy, as well as cough. During that admission she tested negative for SARS-CoV2 and influenza. She had an echocardiogram, which demonstrated severe LV dysfuncion. She was presumed to have myocarditis. She was transferred here for further evaluation. After arrival here, she had a troponin level checked, which was markedly elevated. She was taken emergently for LHC given concern for possible acute ischemic cardiomyopathy / ACS. Her LHC demonstrated high grade serial LAD lesions with tapered distal vessel, TANK ERECTOR of the proximal Lcx system, and normal caliber, dominant RCA with R-->L collaterals to the distal LAD and Lcx territory. She had imaging-guided MADHURI placed to the ostial and proximal LAD lesion (2.75 mm, PD 3.0). Her LVEDP was noted to be markedly elevated to 42 mmHg without AV gradient. She was subsequently transferred to our service for further management. 24 hour events: - Diuresed well overnight - Cardiac MRI with diffuse ischemic infarct pattern and diffuse edema. Problem List: Systolic heart failure: unclear chronicity but Mri with diffuse ischemic infarct. Suspect long-standing given collaterals from RCA to left system. Presenting elevated troponin may represent demand injury vs. Acute on chronic ischemia. Less likely myocarditis on background of infarcted ventricle. Type 1 diabetes mellitus on insulin pump at home Recent history of fevers, encephalopathy--resolved Trisomy 21 syndrome Plan: - Continue aggressive diuresis for markedly elevated L sided filling pressure. She is responding well and denies current symptoms - Endocrinology team following for DM management; Bgs remain poorly controlled with lows and highs in last 24 hours - Continue aspirin, ticagrelor for > 1 year - Continue rosuvastatin 40 mg daily - Continue losartan 25 mg daily - Continue spironolactone to 25 mg daily - Will plan to start low dose BB in the next 1-2 days as volume comes off - Continue terbinafine cream BID x 4 weeks per dermatology recommendations for shoulder tinea corporis Timothy Marks MD Advanced Heart Failure and Cardiac Transplant Program [facility] Heart Failure 1 Progress Note PATIENT: Kaylee Tariq ADMIT DATE: 04/03/2022 Subjective History Kaylee Tariq is a 41 y.o. female with PMH of Trisomy 21, DM type 1 w/inslin pump, hypothyroidism who presents today as a transfer from [facility] with new EF 15%. Feels well, reports that she is urinating a lot. No shortness of breath, chest pain, palpitations reported. Medications SCHEDULED: ammonium lactate (LAC-HYDRIN) 12 % lotion 1 Application, 1 Application, BID aspirin chewable tablet 81 mg, 81 mg, Daily Enoxaparin Sodium (LOVENOX) injection 40 mg, 40 mg, Daily escitalopram (LEXAPRO) tablet 5 mg, 5 mg, Daily furOSEmide (LASIX) injection 80 mg, 80 mg, BID AC insulin glargine injection 10 Units, 10 Units, Daily insulin lispro (HumaLOG) injection, , 4x daily w/meals, HS levothyroxine (SYNTHROID) tablet 50 mcg, 50 mcg, Before BKF losartan (COZAAR) tablet 25 mg, 25 mg, Daily polyethylene glycol (MIRALAX) packet 17 g, 17 g, Daily rosuvastatin (CRESTOR) tablet 40 mg, 40 mg, Every dinner senna (SENOKOT) tablet 8.6 mg, 8.6 mg, Daily [START ON 04/07/2022] spironolactone (ALDACTONE) tablet 25 mg, 25 mg, Daily terbinafine (lamISIL) 1 % cream 1 Application, 1 Application, BID ticagrelor (BRILINTA) tablet 90 mg, 90 mg, Q12H FLUIDS/DRIPS: PRNs: acetaminophen, 650 mg, Q6H PRN alum/mag hydrox.-simethicone, 30 mL, Q6H PRN benzocaine-menthol, 1 lozenge, Q2H PRN Calamine-Zinc Oxide, 1 Application, PRN insulin lispro, , PRN And dextrose, 7.5-25 g, As directed PRN And glucose, 1-2 Tube, As directed PRN magnesium oxide, 800 mg, As directed PRN Magnesium Sulfate IVPB, 4 g, As directed PRN melatonin, 6 mg, QHS PRN ondansetron, 4 mg, Q6H PRN polyethylene glycol, 17 g, Daily PRN Polyvinyl Alcohol-Povidone PF, 1 drop, Q1H PRN potassium chloride, 20-40 mEq, As directed PRN potassium chloride, 40-60 mEq, As directed PRN sodium chloride 0.9%, 250 mL, PRN ALLERGIES: She has no allergies on file. Objective Findings Vital Signs (24hrs): Temp: [97.2 F (36.2 C)-99 F (37.2 C)] 98.3 F (36.8 C) Pulse (Heart Rate): [75-113] 90 Resp Rate: [9-22] 14 BP: (83-96)/(51-70) 83/52 O2 Sat (%): [95 %-99 %] 98 % Weight: [76.2 kg (167 lb 15.9 oz)] 76.2 kg (167 lb 15.9 oz) Hemodynamic/Invasive Device Data (24 hrs): Pulmonary/Cardiac Hemodynamics Pulse (Heart Rate): 90 BSA (Calculated - sq m): 1.75 m2 Neuro ICP/CPP Monitoring MAP (mmHg): (!) 61 mmHg Neuro ICP/CPP Monitoring 2 MAP (mmHg): (!) 61 mmHg Ventilation/Oxygen Therapy (24hrs): Oxygen Therapy O2 Sat (%): 98 % O2 Device: room air Oxygen Delivery/Consumption Hemodynamics BSA (Calculated - sq m): 1.75 m2 Lines/Drains/Airways/Wounds: Patient Lines/Drains/Airways Status Active Lines, Drains, Airways, & Wound Overview Name Placement date Placement time Site Days Peripheral IV Line - Single Lumen 04/03/222019 metacarpal vein (top of hand), left 20 gauge 04/03/222019 -- 2 Wound Other (comment) 04/03/222020 Lateral;Right;Upper Back 04/03/222020 Back 2 Wound Sheath Site 04/04/22 1215 Right Radial 04/04/22 1215 Radial 2 Fluid Management (24hrs): -Intake/Output last 3 shifts: I/O last 3 completed shifts: In: 1540 [P.O.:1540] Out: 2400 [Urine:2400] Physical Examination: Gen: NAD, well-appearing HENT: NCAT, EOMI, MMM Cardio: RRR, normal S1/S2, no murmur, good distal pulses. JVD is present Resp: CTA b/l, no increased WOB GI: Soft, NT, ND, normal BS MSK: no joint swelling or erythema Ext: warm and well-perfused, no LE edema Neuro: Alert and oriented, moving all four extremities Diagnostic Results Labs-ABGs Labs-CBC WBC/Hgb/Hct/Plts: 4.98/11.9/35.5/263 (04/06 330) Labs-Chem 7(PMC) Bun/Creat/Cl/CO2/Glucose: 18/1.01/98/35/285 (04/06 330-04/06 1223) Na/K+/Phos/Mg/Ca: 137/3.9/--/1.8/-- (04/06 330) Labs-Coags Additional Labs Lab Results Component Value Date BNP 900 (H) 04/06/2022 BNP 985 (H) 04/03/2022 No results found for: TROP Lab Results Component Value Date CHOLESTEROL 89 04/05/2022 TRIG 80 04/05/2022 HDL 27 (L) 04/05/2022 Recent Results (from the past 3650 days) INVASIVE CARDIOVASCULAR PROCEDURE 04/04/2022 (Needs Review) Access: Right radial artery with 6 FR sheath. Left Heart Catheterization / Coronary angiogram: It is a right dominant system. 1. The left main has minimal disease. 2. The LAD has one diagonal. Ostial and proximal serial lesions up to 99%. Mild disease elsewhere. Distal vessel fills late via right to left collaterals. 3. The LCx occludes proximally. Distal vessel fills late via right to left collaterals. 4. The RCA is moderate caliber. There is minimal coronary artery disease. 5. LVEDP is 42 mm Hg; there is no aortic valve gradient Results for orders placed during the hospital encounter of 04/03/22 ECHOCARDIOGRAM LIMITED/FOLLOWUP 04/06/2022 (Final) Interpretation Summary Left ventricular size is mildly enlarged at end-systole. Severe hypokinesis to akinesis of all segments, sparing the basal inferior and basal inferolateral segments. Pattern of contractility and appearance of the ventricular function is most consistent with a non-ischemic cardiomyopathy, despite presence of known coronary disease. Ejection fraction +/-22% consistent with severe systolic dysfunction. Left atrium visually appears normal in size Right ventricle is normal in size and function. Right atrium visually appears normal in size Valve structures are consistent with age. Function not assessed Assessment & Plan Kaylee Tariq is a 41 y.o. female with PMH of Trisomy 21, DM type 1 w/inslin pump, hypothyroidism who presents as a transfer from [facility] with new EF 15% concerning for viral myocarditis. Course complicated by NSTEMI with subsequent PCI to LAD. Major Updates Today: - IV lasix 100 mg BID - Spironolactone 25 mg daily - Continue losartan 25 mg daily - Cardiac MRI when able to lie flat Acute systolic heart failure (HFrEF) Unknown etiology Patient presented to OSH on 03/28 with a week of fever, encephalopathy and non-productive cough. TTE revealed newly reduced EF 15%. Concern for myocarditis given negative infectious workup, but concern for acute viral illness. Patient also with new CAD found during admission after syncopal episode on 04/04 and subsequent workup revealing HsTrop > 24,000. LHC revealed ostial LAD lesion, now s/p PCI. Systolic dysfunction could be multifactorial in the setting of ischemic disease and possible viral myocarditis given her prodromal symptoms - Cardiac MRI ordered to evaluate for possible myocarditis, patient will need to lie flat for this - Diruesis with IV lasix 100 mg BID, aim for -2L daily - GDMT: naiive on admission; started losartan 25 mg daily, spironolactone 25 mg daily; beta-vanessa before discharge though not immediately given low EF; will hold on SGLT2i with T1DM NSTEMI CAD s/p PCI to LAD 04/04, patient with syncopal event and subsequent troponin elevation to 24,643. EKG without ST changes. Taken emergently to [facility] which revealed ostial lesion in the LAD, now s/p MADHURI. Risk factors include T1DM. LDL on admission 46. - Continue Ticagrelor 90 mg BID - Continue ASA 81 mg daily - Started rosuvastatin 40 mg daily - T1DM management as below T1DM Patient diagnosed at age 15. Uses insulin pump/Dexcom sensor at home. Mother has pump supplies at home, currently not being used. A1C 7.7 on admission - Continue Lantus 10 units daily - SSI carb coverage/correction - Diabetes consult for re-initiation of insulin pump Dermatophyte Infection - R shoulder - Derm consulted, appreciate recs - Prn calomine lotion - Clotrimazole cream BID Hypothyroidism - Continue levothyroxine 50 mcg daily Code Status: Full Code DVT Prophylaxis: lovenox Diet: Carb Controlled Dispo: Home after diuresis, cardiac MRI for myocarditis evaluation This plan was discussed with Timothy Marks MD on rounds. Felix Farris MD Internal Medicine Residency PGY-[address] [facility] Associated attestation - Timothy Marks MD - 04/06/2022 4:17 PM EST I saw and personally examined the patient today with the resident on rounds. I discussed the findings and therapeutic plan with the resident. I agree with the history, examination, and medical decision making as noted by the resident. Briefly: Ms. Tariq is a 41 year old female with history of Trisomy 21, diabetes mellitus type 1 on continuous insulin pump, and hypothyroidism. She was recently admitted at an outside facility after presenting with fevers and encephalopathy, as well as cough. During that admission she tested negative for SARS-CoV2 and influenza. She had an echocardiogram, which demonstrated severe LV dysfuncion. She was presumed to have myocarditis. She was transferred here for further evaluation. After arrival here, she had a troponin level checked, which was markedly elevated. She was taken emergently for LHC given concern for possible acute ischemic cardiomyopathy / ACS. Her LHC demonstrated high grade serial LAD lesions with tapered distal vessel, TANK ERECTOR of the proximal Lcx system, and normal caliber, dominant RCA with R-->L collaterals to the distal LAD and Lcx territory. She had imaging-guided MADHURI placed to the ostial and proximal LAD lesion (2.75 mm, PD 3.0). Her LVEDP was noted to be markedly elevated to 42 mmHg without AV gradient. She was subsequently transferred to our service for further management. 24 hour events: - Diuresed well - Feels well with mild orthopnea Problem List: Acute systolic heart failure: suspect this is more likely due to myocarditis than acute ischemic injury. Her coronary vasculature is severe diseased but appears more chronically so, especially without angina or equivalent, known delta troponin value, or ischemic ECG changes Type 1 diabetes mellitus on insulin pump at home Recent history of fevers, encephalopathy--resolved Trisomy 21 syndrome Plan: - Continue aggressive diuresis for markedly elevated L sided filling pressure. She is responding well and denies current symptoms - Obtain cardiac MRI with contrast when able to evaluate for possible myocarditis. - Endocrinology team following for DM management - Continue aspirin, ticagrelor for > 1 year - Continue rosuvastatin 40 mg daily - Continue losartan 25 mg daily - Increase spironolactone to 25 mg daily - Can start beta vanessa when filling pressure felt to be normal, closer to discharge - Continue terbinafine cream BID x 4 weeks per dermatology recommendations for shoulder tinea corporis Timothy Marks MD Advanced Heart Failure and Cardiac Transplant Program [facility] Inpatient Diabetes Consults - Progress Note- TEAM 2 *If paging after 6pm please check on [employer], under IM Consult Serv, Endocrine/Diabetes , and call the person listed Diabetes Att Day * Assessment Impression: Uncontrolled Type 1 Diabetes Mellitus complicated by peripheral neuropathy Admitted with acute onset new Heart Failure Hx of Trisomy 21, hypothyroidism Insulin pump - not in use, pump not at the bedside to be downloaded A1c on 03/10/2022: 7.6% Plan 1. Hospital Plan: Fasting glucose appropriate, continue glargine dose Post prandial values elevated, increase carb ratio Basal: Insulin glargine: 10 units qam Prandial: Insulin lispro: 1 unit per 8 gram carbs qachs & prn Correction: Insulin lispro: 1 unit(s) per every 50 mg/dL above 150 mg/dL qachs 2. Discharge Plan: Please call on day of d/c for definitive recs. Please see [employer],under IM Consult Serv Endocrine/Diabetes - Team 2 Diab Consults for provider on day of discharge. Likely on her insulin pump 3. 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 Education: discussed plan for the day. 5. Will review glucoses and discuss with Dr Fraga Thank you for allowing us to participate in your patient's care. If you have questions please check on [employer], under IM Consult Serv, Endocrine/Diabetes , and call the person listed for Team 2 as directed CC: hyperglycemia History of Present Illness: Kaylee Tariq is a 41 y.o. year old female who is seen at the bedside. Patient is eating well, no nausea. Creatinine normal. Current Diet Orders Procedures DIET CARB CONTROLLED Standing Status: Standing Number of Occurrences: 1 Current Regimen: Basal: Insulin glargine: 10 units qam Prandial: Insulin lispro: 1 unit per 8 gram carbs qachs & prn Correction: Insulin lispro: 1 unit(s) per every 50 mg/dL above 150 mg/dL qachs Daily Glucose Review: Date Daily glucose review TDD Basal Prandial/ Correction 04/04/2022 307, 311, 327, 198, 202, 205 30 10 20 04/05/2022 139, 149, 307, 208, 167 39 10 29 04/06/22 100, 130 Review of Systems Diabetes: Negative for symptoms of hypoglycemia Physical Exam Constitutional: Well-developed, well-nourished, nonobese female in no acute distress. Pulmonary/Chest: Respirations even and unlabored Musculoskeletal: No acute abnormalities noted Neurological: Alert and interactive, Developmentally delayed Psych: Cooperative Temp: [97.2 F (36.2 C)-99 F (37.2 C)] 98.3 F (36.8 C) Pulse (Heart Rate): [75-148] 90 Resp Rate: [9-24] 14 BP: (83-110)/(51-70) 83/52 O2 Sat (%): [93 %-99 %] 98 % Weight: [76.2 kg (167 lb 15.9 oz)] 76.2 kg (167 lb 15.9 oz)Admission/Adult (Dosing) Weight: 77.2 kg (170 lb 1.6 oz) Most recent entered Weight: 76.2 kg (167 lb 15.9 oz) Body mass index is 31.74 kg/m . Background History Kaylee Tariq is a 41 y.o. year old female with Type 1 Diabetes Mellitus (T1D) diagnosed age 15 who is seen in consultation at the request of Elizabeth Maxwell MD for assistance with evaluation of hyperglycemia and to make treatment recommendations. She was interviewed at her bedside in [place]. She is transferred from outside hospital for evaluation of new onset Class 4 Heart Failure. Her T1D is typically managed with an Omnipod pump + Dexcom CGM. She is in process of upgrading to the OP5 HCL System. However, she has not used her pump since she was asked at [facility] on Mar 29, 2022 to remove the pump. On arrival to [facility], her glucose was 238, bicarb 25, Cr 0.86, BHB nd, and WBC 4.44. She was eating but now is NPO to go to label folder. We have initiated basal bolus insulin this morning, based on weight + historical pump settings. When her mother is here we will speak with her about getting her pump and CGM data to review. Diabetes History: Type of Diabetes: Type 1 Diabetes Mellitus (T1D) Diagnosis (aprox date): Age 15 ( 1993) Family History: unknown Outpatient Clinic: Dr. Jonah Hemphill, [place], [place] Home regimen: Humalog insulin per Omnipod pump Upload not available Noninsulin injectables: none Orals: none BP: none Heart Failure: none Lipids: none Vitamin D none Thyroid Levothyroxine 50 mcg daily Diabetes Complications: none known and peripheral neuropathy ACR normal in 2020 Date of most recent dilated eye exam: unknown DKA occurrences: unknown Home blood glucoses: glucose meter: Dexcom Recent A1c: Lab Results Component Value Date HGBA1C 7.7 (H) 04/05/2022 Lab Results Component Value Date CHOLESTEROL 89 04/05/2022 TRIG 80 04/05/2022 HDL 27 (L) 04/05/2022 LDLCALC 46 04/05/2022 Lab Results Component Value Date SODIUM 137 04/06/2022 POTASSIUM 3.9 04/06/2022 CHLORIDE 98 04/06/2022 CO2 35 (H) 04/06/2022 BUN 18 04/06/2022 CREATSERUM 1.01 04/06/2022 GLUCOSE 130 (H) 04/06/2022 No results found for: CREATURINE, MICROALBUMIN, MICALBCREAT Lab Results Component Value Date ALT 31 04/03/2022 No results found for: PREALBUMIN Cardiac echo: EF = No results found for this or any previous visit. Discharge Planning Patient Assessment Admission Assessment Patient Assessment Completed: Initial Anticipated discharge disposition: Home Reason for Admission: Heart Failure, r/o Viral Myocarditis Is the patient able to participate in the assessment?: No Explanation of why patient is unable to participate: Patient asked for her Mom to be called Information source: Other, Review of Medical Record Explanation of Other: Mom Information Source Name/Contact: Pamqiana Tariq [phone] Demographics Verified and Updated: Yes Has the patient been admitted to any hospital in the last 30 days?: Transferred From Outside Hospital Advanced Care Planning Has the patient completed Advance Directives?: (Parents have Guardianship paperwork. Mother to send in copy to medical records.) Legal Next of Kin Does the patient have a Guardian?: Yes Name and Contact information: Pam marline [phone], Costa Tariq [phone] Spouse: No Adult Child(issa), List All Adult Children: No Parent(s) - List All Living Parents: Yes Name and Contact information: Pam Tariq [phone] Would you like to add additional parents?: Yes Name and Contact information: Costa Tariq [phone] Adult Sibling(s), List All Adult Siblings: No Nearest Adult Related by Blood or Adoption: No Patient Reports No Relatives by Blood or Adoption.: No Referral to Social Work to Identify Legal Next of Kin?: No Reviewed and Updated in Demographics? : Yes Outpatient Providers Does patient have a primary care physician? : Yes When was the patient's last PCP visit?: > 30 days Does the patient follow any specialists?: Yes Reviewed and updated Care Team?: Yes Patient Care Team: Kaylee Estrada DO as PCP - General (Family Medicine) Jonah Hemphill MD (Endocrinology, Diabetes & Metabolism) Dwayne Rothman Environment/Caregivers Is the patient from a facility or mcc?: No Patient lives with: Parent(s) Living Environment: House How many steps does the patient have to navigate to enter or inside the home? : 1 Does the patient have a first floor set-up with bed and bathroom?: Yes Patient Caregiving Responsibilities: Self Patient-identified caregiver/support network: Family Who does the patient identify as a teachable caregiver(s)?: Parent(s) Services Does the patient use a home health or hospice agency?: No Current with dialysis?: No Does the patient use any community programs or services?: No Does patient use DME? : walker, wheelchair, elevated toilet seat, grab bars, glucometer Would you like to add additional DME providers?: No Does the patient use oxygen?: No Does patient use medical supplies? : glucose testing strips (Insulin pump) How does patient obtain supplies?: pharmacy Would you like to add additional medical suppliers?: No Anticipated Changes Related to Illness/Injury? : No Initial ADLs Prior to Arrival What is the patient's baseline physical functioning prior to this acute illness?: independent What is the patient's baseline cognitive functioning prior to this acute illness?: independent Is the patient's baseline functioning changed by this acute illness? : Unable to assess Concerns with patient being able to care for themselves at home? : No Are there therapy or specialists consults?: Yes Select consult type: PT, OT Does the patient's home require any home modifications for discharge? : No CM to recommend therapy or other consults? : No Medication Management Does the patient have prescription insurance coverage? : Yes Is the patient on Anticoagulation? : No [facility] [address] - [place] [address] [address] [facility] [address] [address] [employer] [address] Does the patient or community health program representative express financial concerns? : No Employed?: No Coping/Stress Concerns about patient s coping and stress?: No Concerns about patient s caregiver s coping and stress?: No Values and Beliefs Cultural or restoration practices that may impact discharge planning and/or medical care?: No Initial Discharge Planning Anticipated discharge disposition: Home Transportation Available for Discharge: Family or Friend Anticipated DME: none Anticipated Services at Discharge: Outpatient clinical services (ie: lab draws, transfusions, injectables), Outpatient follow up Patient Assessment Completed: Initial Risk of Readmission: 3.5 Category Reference: High:16-100 Mod-High:10-16 Mod-Low: 5-10 Low: 0-5 Expected Discharge Date: 04/07/2022 Discharge Planning Summary Anticipate patient will return home when medically stable. Patient lives with her parents and is completely independent, except that she can not drive. Patient's mother is staying at the [facility] while patient is in the hospital. Mother will provide transportation home when discharged. Case Management Plan 1. Air Liaison And Special Staff met with patient at bedside, and spoke to patient's mother over the phone, and explained role. Initial admission assessment completed. 2. Will assist with discharge planning and follow along with the medical team. 3. CM informed patient and family they will need to make the necessary appointments that is placed on the AVS by the primary team. Hector HERNANDEZ RN Clinical Air Liaison And Special Staff Please note that I am a float case finishing machine adjuster and may not cover the same service every day. Please call the main Case Management office at [phone] for up-to-date coverage. Heart Failure 1 Progress Note PATIENT: Kaylee Tariq ADMIT DATE: 04/03/2022 Subjective History Kaylee Tariq is a 41 y.o. female with PMH of Trisomy 21, DM type 1 w/inslin pump, hypothyroidism who presents today as a transfer from [facility] with new EF 15%. Underwent stenting yesterday. No chest pain or pressure reported this AM. Was net negative 2 L yesterday. Breathing is stable. Discussed plan with her mom at bedside. Medications SCHEDULED: ammonium lactate (LAC-HYDRIN) 12 % lotion 1 Application, 1 Application, BID aspirin chewable tablet 81 mg, 81 mg, Daily Enoxaparin Sodium (LOVENOX) injection 40 mg, 40 mg, Daily escitalopram (LEXAPRO) tablet 5 mg, 5 mg, Daily furOSEmide (LASIX) injection 80 mg, 80 mg, BID AC insulin glargine injection 10 Units, 10 Units, Daily insulin lispro (HumaLOG) injection, , 4x daily w/meals, HS levothyroxine (SYNTHROID) tablet 50 mcg, 50 mcg, Before BKF losartan (COZAAR) tablet 25 mg, 25 mg, Daily polyethylene glycol (MIRALAX) packet 17 g, 17 g, Daily rosuvastatin (CRESTOR) tablet 40 mg, 40 mg, Every dinner senna (SENOKOT) tablet 8.6 mg, 8.6 mg, Daily spironolactone (ALDACTONE) tablet 12.5 mg, 12.5 mg, Daily terbinafine (lamISIL) 1 % cream 1 Application, 1 Application, BID ticagrelor (BRILINTA) tablet 90 mg, 90 mg, Q12H FLUIDS/DRIPS: PRNs: acetaminophen, 650 mg, Q6H PRN alum/mag hydrox.-simethicone, 30 mL, Q6H PRN benzocaine-menthol, 1 lozenge, Q2H PRN Calamine-Zinc Oxide, 1 Application, PRN insulin lispro, , PRN And dextrose, 7.5-25 g, As directed PRN And glucose, 1-2 Tube, As directed PRN magnesium oxide, 800 mg, As directed PRN Magnesium Sulfate IVPB, 4 g, As directed PRN melatonin, 6 mg, QHS PRN ondansetron, 4 mg, Q6H PRN polyethylene glycol, 17 g, Daily PRN Polyvinyl Alcohol-Povidone PF, 1 drop, Q1H PRN potassium chloride, 20-40 mEq, As directed PRN potassium chloride, 40-60 mEq, As directed PRN sodium chloride 0.9%, 250 mL, PRN ALLERGIES: She has no allergies on file. Objective Findings Vital Signs (24hrs): Temp: [97.5 F (36.4 C)-98.4 F (36.9 C)] 97.6 F (36.4 C) Pulse (Heart Rate): [82-148] 148 Resp Rate: [13-24] 24 BP: (92-141)/(59-100) 110/68 O2 Sat (%): [91 %-98 %] 93 % Weight: [75.9 kg (167 lb 6.4 oz)] 75.9 kg (167 lb 6.4 oz) Hemodynamic/Invasive Device Data (24 hrs): Pulmonary/Cardiac Hemodynamics Pulse (Heart Rate): 148 Neuro ICP/CPP Monitoring MAP (mmHg): 78 mmHg Neuro ICP/CPP Monitoring 2 MAP (mmHg): 78 mmHg Ventilation/Oxygen Therapy (24hrs): Oxygen Therapy O2 Sat (%): 93 % O2 Device: room air Lines/Drains/Airways/Wounds: Patient Lines/Drains/Airways Status Active Lines, Drains, Airways, & Wound Overview Name Placement date Placement time Site Days Peripheral IV Line - Single Lumen 04/03/222019 metacarpal vein (top of hand), left 20 gauge 04/03/222019 -- 1 Wound Other (comment) 04/03/222020 Lateral;Right;Upper Back 04/03/222020 Back 1 Wound Sheath Site 04/04/22 1215 Right Radial 04/04/22 1215 Radial 1 Fluid Management (24hrs): -Intake/Output last 3 shifts: I/O last 3 completed shifts: In: 985.9 [P.O.:830; I.V.:105.8; IV Piggyback:50.1] Out: 2925 [Urine:2925] Physical Examination: Gen: NAD, well-appearing HENT: NCAT, EOMI, MMM Cardio: RRR, normal S1/S2, no murmur, good distal pulses. JVD is present Resp: CTA b/l, no increased WOB GI: Soft, NT, ND, normal BS MSK: no joint swelling or erythema Ext: warm and well-perfused, no LE edema Neuro: Alert and oriented, moving all four extremities Diagnostic Results Labs-ABGs Labs-CBC WBC/Hgb/Hct/Plts: 4.73/11.6/34.6/239 (04/05 506) Labs-Chem 7(PMC) Bun/Creat/Cl/CO2/Glucose: 13/0.80/100/32/307 (04/05 506-04/05 121) Na/K+/Phos/Mg/Ca: 138/3.9/--/2.2/-- (04/05 506) Labs-Coags Additional Labs Lab Results Component Value Date BNP 985 (H) 04/03/2022 No results found for: TROP Lab Results Component Value Date CHOLESTEROL 89 04/05/2022 TRIG 80 04/05/2022 HDL 27 (L) 04/05/2022 Recent Results (from the past 3650 days) INVASIVE CARDIOVASCULAR PROCEDURE 04/04/2022 (Needs Review) This result has not been signed. Information might be incomplete. Narrative Impression: Successful PCI to ostial to proximal LAD with one drug eluting stent. Severely elevated LVEDP. Recommendations: She received aspirin, ticagrelor, and a tirofiban bolus intra-procedurally. She will complete a 6 hour tirofiban infusion. Afterward tirofiban will discontinue. Afterward she will continue DAPT uninterrupted for minimum one year. Once her DAPT course is completed she should remain on single agent antiplatelet therapy for life. Risk factor surveillance and modification. Inpatient heart failure management. Access: Right radial artery with 6 FR sheath. Left Heart Catheterization / Coronary angiogram: It is a right dominant system. 1. The left main has minimal disease. 2. The LAD has one diagonal. Ostial and proximal serial lesions up to 99%. Mild disease elsewhere. Distal vessel fills late via right to left collaterals. 3. The LCx occludes proximally. Distal vessel fills late via right to left collaterals. 4. The RCA is moderate caliber. There is minimal coronary artery disease. 5. LVEDP is 42 mm Hg; there is no aortic valve gradient. Intervention: The left coronary was engaged with a 6 FR EBU 3.0 guide and a Colrain XT guidewire was advanced to the distal LAD. The ostial and proximal LAD lesions were stented with a 2.75 x 38 mm Xience MADHURI deployed at high pressure. Post stent angiography showed good angiographic result without complication and with ALIZE 3 flow throughout the vessel. IVUS was used post stent. The stent was post-dilated with a 3 x 20 mm NC balloon inflated to high pressure. Post dilation IVUS showed good stent deployment and apposition. Assessment & Plan Kaylee Tariq is a 41 y.o. female with PMH of Trisomy 21, DM type 1 w/inslin pump, hypothyroidism who presents as a transfer from [facility] with new EF 15% concerning for viral myocarditis. Course complicated by NSTEMI with subsequent PCI to LAD. Major Updates Today: - S/p MADHURI to LAD - IV Lasix 80 mg BID - Continue Ticagrelor/ASA - Start losartan 25 mg daily and aldactone 12.5 mg daily Acute systolic heart failure (HFrEF) Unknown etiology Patient presented to OSH on 03/28 with a week of fever, encephalopathy and non-productive cough. TTE revealed newly reduced EF 15%. Concern for myocarditis given negative infectious workup, but concern for acute viral illness. Patient also with new CAD found during admission after syncopal episode on 04/04 and subsequent workup revealing HsTrop > 24,000. LHC revealed ostial LAD lesion, now s/p PCI. Systolic dysfunction could be multifactorial in the setting of ischemic disease and inflammatory viral myocarditis. - Cardiac MRI ordered to evaluate for possible myocarditis - Diruesis with IV lasix - GDMT: start losartan 25 mg daily, spironolactone 12.5 mg daily; beta-vanessa before discharge though not immediately given low EF NSTEMI CAD s/p PCI to LAD 04/04, patient with syncopal event and subsequent troponin elevation to 24,643. EKG without ST changes. Taken emergently to C which revealed ostial lesion in the LAD, now s/p MADHURI. Risk factors include T1DM. - Continue Ticagrelor 90 mg BID - Continue ASA 81 mg daily - Started rosuvastatin 40 mg daily - T1DM management as below T1DM Patient diagnosed at age 15. Uses insulin pump/Dexcom sensor at home. Mother has pump supplies at home, currently not being used. - Continue Lantus 10 units daily - SSI carb coverage/correction - A1c ordered - Diabetes consult for re-initiation of insulin pump Dermatophyte Infection - R shoulder - Derm consulted, appreciate recs - Prn calomine lotion - Clotrimazole cream BID Hypothyroidism - Continue levothyroxine 50 mcg daily Code Status: Full Code DVT Prophylaxis: lovenox Diet: Carb Controlled Dispo: Home after diuresis, possible cardiac MRI for myocarditis evaluation This plan was discussed with Timothy Marks MD on rounds. Felix Farris MD Internal Medicine Residency PGY-2 [facility] Associated attestation - Timothy Marks MD - 04/05/2022 9:32 PM EST I saw and personally examined the patient today with the resident on rounds. I discussed the findings and therapeutic plan with the resident. I agree with the history, examination, and medical decision making as noted by the resident. Briefly: Ms. Tariq is a 41 year old female with history of Trisomy 21, diabetes mellitus type 1 on continuous insulin pump, and hypothyroidism. She was recently admitted at an outside facility after presenting with fevers and encephalopathy, as well as cough. During that admission she tested negative for SARS-CoV2 and influenza. She had an echocardiogram, which demonstrated severe LV dysfuncion. She was presumed to have myocarditis. She was transferred here for further evaluation. After arrival here, she had a troponin level checked, which was markedly elevated. She was taken emergently for LHC given concern for possible acute ischemic cardiomyopathy / ACS. Her LHC demonstrated high grade serial LAD lesions with tapered distal vessel, TANK ERECTOR of the proximal Lcx system, and normal caliber, dominant RCA with R-->L collaterals to the distal LAD and Lcx territory. She had imaging-guided MADHURI placed to the ostial and proximal LAD lesion (2.75 mm, PD 3.0). Her LVEDP was noted to be markedly elevated to 42 mmHg without AV gradient. She was subsequently transferred to our service for further management. Problem List: Acute systolic heart failure: suspect this is more likely due to myocarditis than acute ischemic injury. Her coronary vasculature is severe diseased but appears more chronically so, especially without angina or equivalent, known delta troponin value, or ischemic ECG changes Type 1 diabetes mellitus on insulin pump at home Recent history of fevers, encephalopathy--resolved Trisomy 21 syndrome Plan: - Continue aggressive diuresis for markedly elevated L sided filling pressure. She is responding well and denies current symptoms - Obtain cardiac MRI with contrast when able to evaluate for possible myocarditis. Hoping that she is able to comply with breath-holding instructions during the test. - Endocrinology team following for DM management - Continue aspirin, ticagrelor for > 1 year - Change atorvastatin 40 mg daily to rosuvastatin 40 mg daily - Start losartan 25 mg daily and spironolactone 12.5 mg daily - Can start beta vanessa when filling pressure felt to be normal - Continue terbinafine cream BID x 4 weeks per dermatology recommendations for shoulder tinea corporis Timothy Marks MD Advanced Heart Failure and Cardiac Transplant Program [facility] Inpatient Diabetes Consults - Progress Note- TEAM 2 *If paging after 6pm please check on [employer], under IM Consult Serv, Endocrine/Diabetes , and call the person listed Diabetes Att Day * Assessment Impression: Uncontrolled Type 1 Diabetes Mellitus (T1D) admitted with acute onset new Heart Failure DM microvascular complications: peripheral neuropathy Hx of Trisomy 21, hypothyroidism Insulin pump - not in use, pump not at the bedside to be downloaded A1c on 03/10/2022: 7.6% Plan 1. Hospital Plan: Fasting glucose appropriate, continue glargine dose Post prandial values elevated, increase carb ratio Basal: Insulin glargine: 10 units qam Prandial: Insulin lispro: 1 unit per 10 -> 8 gram carbs qachs & prn Correction: Insulin lispro: 1 unit(s) per every 50 mg/dL above 150 mg/dL qachs 2. Discharge Plan: Please call on day of d/c for definitive recs. Please see [employer],under IM Consult Serv Endocrine/Diabetes - Team 2 Diab Consults for provider on day of discharge. Likely on her insulin pump 3. 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 Education: discussed plan for the day. 5. Will review glucoses and discuss with Dr Fraga Thank you for allowing us to participate in your patient's care. If you have questions please check on [employer], under IM Consult Serv, Endocrine/Diabetes , and call the person listed for Team 2 as directed CC: hyperglycemia History of Present Illness: Kaylee Tariq is a 41 y.o. year old female who is seen at the bedside. Patient is eating well, no nausea. Creatinine normal. Current Diet Orders Procedures DIET CARB CONTROLLED Standing Status: Standing Number of Occurrences: 1 Current Regimen: Basal: Insulin glargine: 10 units qam Prandial: Insulin lispro: 1 unit per 10 gram carbs qachs & prn Correction: Insulin lispro: 1 unit(s) per every 50 mg/dL above 150 mg/dL qachs Daily Glucose Review: Date Daily glucose review TDD Basal Prandial/ Correction 04/04/2022 307, 311, 327, 198, 202, 205 30 10 20 04/05/2022 139, 149 Review of Systems Diabetes: Negative for symptoms of hypoglycemia Physical Exam Constitutional: Well-developed, well-nourished, nonobese female in no acute distress. Pulmonary/Chest: Respirations even and unlabored Musculoskeletal: No acute abnormalities noted Neurological: Alert and interactive, Developmentally delayed Psych: Cooperative Temp: [97.4 F (36.3 C)-98.4 F (36.9 C)] 97.6 F (36.4 C) Pulse (Heart Rate): [82-148] 148 Resp Rate: [13-24] 24 BP: (92-141)/(59-100) 110/68 O2 Sat (%): [91 %-98 %] 93 % Weight: [75.9 kg (167 lb 6.4 oz)] 75.9 kg (167 lb 6.4 oz)Admission/Adult (Dosing) Weight: 77.2 kg (170 lb 1.6 oz) Most recent entered Weight: 75.9 kg (167 lb 6.4 oz) There is no height or weight on file to calculate BMI. Background History Kaylee Tariq is a 41 y.o. year old female with Type 1 Diabetes Mellitus (T1D) diagnosed age 15 who is seen in consultation at the request of Elizabeth Maxwell MD for assistance with evaluation of hyperglycemia and to make treatment recommendations. She was interviewed at her bedside in [place]. She is transferred from outside hospital for evaluation of new onset Class 4 Heart Failure. Her T1D is typically managed with an Omnipod pump + Dexcom CGM. She is in process of upgrading to the OP5 HCL System. However, she has not used her pump since she was asked at OSH on Mar 29, 2022 to remove the pump. On arrival to [facility], her glucose was 238, bicarb 25, Cr 0.86, BHB nd, and WBC 4.44. She was eating but now is NPO to go to label folder. We have initiated basal bolus insulin this morning, based on weight + historical pump settings. When her mother is here we will speak with her about getting her pump and CGM data to review. Diabetes History: Type of Diabetes: Type 1 Diabetes Mellitus (T1D) Diagnosis (aprox date): Age 15 ( 1993) Family History: unknown Outpatient Clinic: Dr. Jonah Hemphill, [place], [place] Home regimen: Humalog insulin per Omnipod pump Upload not available Noninsulin injectables: none Orals: none BP: none Heart Failure: none Lipids: none Vitamin D none Thyroid Levothyroxine 50 mcg daily Diabetes Complications: none known and peripheral neuropathy ACR normal in 2020 Date of most recent dilated eye exam: unknown DKA occurrences: unknown Home blood glucoses: glucose meter: Dexcom Recent A1c: Lab Results Component Value Date HGBA1C 7.7 (H) 04/05/2022 Lab Results Component Value Date CHOLESTEROL 89 04/05/2022 TRIG 80 04/05/2022 HDL 27 (L) 04/05/2022 LDLCALC 46 04/05/2022 Lab Results Component Value Date SODIUM 138 04/05/2022 POTASSIUM 3.9 04/05/2022 CHLORIDE 100 04/05/2022 CO2 32 (H) 04/05/2022 BUN 13 04/05/2022 CREATSERUM 0.80 04/05/2022 GLUCOSE 149 (H) 04/05/2022 No results found for: CREATURINE, MICROALBUMIN, MICALBCREAT Lab Results Component Value Date ALT 31 04/03/2022 No results found for: PREALBUMIN Cardiac echo: EF = No results found for this or any previous visit. Acute Occupational Therapy Evaluation Prior to Admission AM-PAC Score: PRIOR LEVEL AM-PAC Activity Raw Score: 24 Current AM-PAC score(s): CURRENT AM-PAC Activity Raw Score: 21 Based on the above AM-PAC score(s) and OT clinical judgment, discharge destination recommendation is: Home (with continued support/assistance from parents as needed.) Pt's mom notes plan to move bed down to first floor. Mobility equipment available at home: grab bars ADL equipment available at home: none Equipment recommendations for discharge: to be determined Current therapy frequency recommendation(s) in acute: 2 times a week Precautions and Weightbearing Status: OT Existing Precautions/Restrictions: cardiac, fall (Patient must keep wrist straight 4 hrs post sheath removal/hemostasis. Minimize movement of the wrist for 24 hours. Should not lift more than 5 lbs with involved arm for 72 hours.) Telemetry Patient Safety Communication Prior to Visit: Nursing Subjective: Patient received seated upright in bed, agreeable to participate in OT evaluation this date. Patient notes, this is my mom when introducing guest in room. Pain: General Pain Documentation (Adult, OB, Peds) Presence of Pain: denies pain/discomfort Home Setting Residence: House (3 levels with basment) First floor setup: tub shower Second floor setup: bedroom, tub shower, grab bars Number of stairs to enter home: 1 Number of stairs in home: 13 Stair Railings at Home: entry - present on right side (ascending) Mobility Equipment Available: grab bars ADL Equipment Available: none Previous Level of Function Prior level ADL Overview: Independent with all ADLs Bed Mobility/Transfers: independent Assistive Device: wheelchair, 2 wheeled walker Level of Ambulation: community Prior Level of Function Details: Pt denied history of falls. 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, very active IADL History IADLs: independent Home Management Skills: independent Medication Management: independent Objective/Observation: Vitals/Vitals Responses to Treatment: Vitals HR (bpm) Start: 84 End: 93 Respiratory Status O2 Device: room air Vision Screen Currently wearing corrective lenses: Yes, Progressive lenses Speech Speech: no gross deficits noted Hearing Hearing: no gross deficits noted Cognition Overall Cognitive Status: Within Functional Limits Arousal/Alertness: Appropriate responses to stimuli Orientation Level: Oriented X4 Following Commands: Follows all commands and directions without difficulty Safety Judgment: Good awareness of safety precautions Awareness of Errors: Good awareness of errors made Deficits: Fully aware of deficits Attention Span: Appears intact Memory: Appears intact Cognition Comments: Hx of down syndrome, pleasant and agreeable. ADLs: ADL Anticipated Performance (ADLs not directly observed this session): Eating, Bathing, UE Dressing Eating Assistance: Independent Grooming Assistance: Supervision Grooming Location: standing at sink Grooming Deficit: Balance Grooming Skilled Rationale (Verbal/Tactile/Visual/Demonstrat ion): Facilitate positioning, Supervision Grooming Intervention/Details: Pt stood at sink in bathroom to complete hand hygiene Bathing Assistance: Stand by Bathing Location: seated on shower chair, standing in shower UE Dressing Assistance: Independent UE Dressing Location: seated in chair LE Dressing Assistance: Independent LE Dressing Location: seated in chair LE Dressing Intervention/Details: Pt doffed/donned socks while seated in bedside chair, no assistance required Toilet Assistance: Stand by Toileting Location: toilet Toileting Deficit: Balance, Grab bar use, Activity tolerance Toilet Skilled Rationale (Verbal/Tactile/Visual/Demonstrat ion): Facilitate positioning, Facilitate postural control, Cues for increased safety, Supervision Toileting Intervention/Details: Pt voided on toilet, SBA for balance while managing gown and completing perineal hygiene in standing. Extremity Assessments: RUE Assessment RUE Assessment: Within Functional Limits LUE Assessment LUE Assessment: Within Functional Limits Balance: Sitting Balance Static Sitting-Level of Assistance: Independent Dynamic Sitting-Level of Assistance: Supervision Standing Balance Static Standing-Level of Assistance: Supervision Dynamic Standing-Level of Assistance: Stand-by assist Standing-Balance Support: Rollator Skilled Rationale: Full extension to upright positioning/posture, Verbal cues, Cues for increased safety Mobility Assessment: Transfer Assessment: Sit to Stand Transfer [place] Level: Sit->Stand: stand-by assist Assistive Device: Sit->Stand: rollator Skilled Rationale: Positioning, Verbal cues, Full extension to upright positioning/posture, Upright gaze/neck extension Skilled Intervention/Details: Sit->Stand: 1x from EOB, 1x from toilet Stand to Sit Transfer [place] Level: Stand->Sit: stand-by assist Assistive Device: Stand->Sit: armed chair Skilled Rationale: Positioning, Hand placement, Verbal cues, Controlled descent for sitting Skilled Intervention/Details: Stand->Sit: 1x to toilet, 1x to bedside chair Toilet Transfer [place] Level: Toilet: stand-by assist Assistive Device: Toilet: grab bars Skilled Rationale: Positioning, Hand placement, Verbal cues, Controlled descent for sitting Skilled Intervention/Details: Toilet: Pt utilized Lt. sided grab bar for increased stability in transfer Functional Mobility: Functional Mobility [place] Level: Functional Mobility/Gait: (CGA, progressing to SBA with utilization of rollator) Assistive Device: Functional Mobility/Gait: (initially hand held assistance before rollator implemented) Functional Mobility Distance: Distance needed to access restroom Functional Mobility Deficits: Activity tolerance, Decreased step length, Balance, Generalized weakness, Slowed gait speed Functional Mobility Skilled Rationale: Facilitate positioning, Facilitate postural control, Verbal cues, Walker management/safety, Cues for increased safety Skilled Intervention/Details - Functional Mobility/Gait: Pt completed functional mobility EOB>toilet with Rt. sided hand held assistance and CGA for balance. Rollator implemented for additional ambulation and Pt progressing to SBA for balance. Verbal cueing for rollator management and appropriate UE positioning required. Outcome Score(s): CURRENT AM-PAC Daily Activity Inpatient Short Form Putting on/Taking Off Lower Body Clothin - No Assistance Bathin - A Little Assistance Toiletin - A Little Assistance Putting on/Taking Off Upper Body Clothin - No Assistance Groomin - A Little Assistance Eatin - No Assistance CURRENT AM-PAC Activity Raw Score: 21 CURRENT AM-PAC Activity Functional Limitation/Modifier: 32.79% Currently Impaired in Daily Activity - PROJECTED AM-PAC Activity Raw Score: 24 PROJECTED AM-PAC Activity Functional Limitation/Modifier: 0.00% - Assessment & Plan: Patient was admitted with new EF 15% concerning for viral myocarditis and seen for therapy evaluation related to deconditioning and generalized weakness impacting performance in ADLs and functional mobility. Exam findings include impairments in: balance, endurance, transfers. These impairments contribute to occupational performance limitations including bathing, toileting, functional mobility, ADL transfers, home management tasks. The following factors impact the plan of care: PMH of Trisomy 21, DM type 1 w/inslin pump, hypothyroidism Patient will benefit from skilled occupational therapy to address these impairments, occupational performance limitations, and participation restrictions. Patient's rehab potential is: good, to achieve stated therapy goals. Planned Therapy Interventions (OT Eval): ADL retraining, IADL retraining, balance training, functional activity tolerance, strengthening, transfer training Patient Instruction/Education this session: Patient Instruction: OT role, POC goals Plan for next session: progress dynamic standing balance for bathing tasks Acute OT Goals Plan of Care by Francisca William OT at 04/05/2022 10:12 AM Version 1 of 1 Problem: OT - ADLs Goal: Toileting Description: Pt will complete toileting task including clothing management with independence for improved ability to safely complete self-care activities. Outcome: Ongoing Goal: Bathing Description: Pt will perform full body bathing routine with independence while standing for improved ability to complete self-care activities. Outcome: Ongoing Problem: OT - Endurance Goal: Endurance Functional Mobilty Around Home Description: Pt will complete distance needed for limited community mobility with independence. Outcome: Ongoing Goal: Endurance Functional Task Standing Description: Pt will engage in standing functional task for 10 minutes with independence to improve activity tolerance necessary for safe ADL completion at recommended discharge destination. Outcome: Ongoing Problem: OT - Transfers Goal: Transfers Toilet/Bedside Commode Description: Pt will transfer to/from toilet/BSC with independence for improved ability to safely complete ADLs. Outcome: Ongoing Evaluating Therapist: Francisca William OT Additional Details: Co-evaluation/co-treatment performed?: Yes, simultaneous billable skilled care This co-evaluation session performed between OT and PT was beneficial, necessary and provided distinct services in establishing this person's individual plan of care. Medical complexity with functional deficits necessitated two skilled therapy disciplines working concurrently to determine each discipline's goals. This co-treatment was medically necessary due to patient's: Postural control and activity tolerance and for expedited discharge recommendation I was assisted by PT for today's session. and I used facemask, protective eye shield, and gloves in today's patient interaction. OT Evaluation Complexity Occupational Profile and Client History: Moderate - expanded history Assessment of Occupational Performance: Low (1-3 performance deficits) Clinical Decision/Performance Deficits: Low (problem-focused assessments w/limited treatment options) Time In: 0956 Time Out: 1012 Total Visit Time: 16 minutes Total Treatment Time (skilled, billable minutes): 16 minutes Patient location at end of session: chair Alarms on at end of session: none, RN aware, and mom present in room Needs in reach. Upon discontinuation of Acute Care Occupational Therapy Services or patient discharge from the hospital this note represents the current Occupational Therapy Discharge Summary. Acute Physical Therapy Evaluation Prior to Admission [facility] score(s): PRIOR LEVEL AM-PAC Mobility Raw Score: 24 Current AM-PAC score(s): CURRENT AM-PAC Mobility Raw Score: 20 Based on the above AM-PAC score(s) and PT clinical judgment, patient is a good candidate for discharge to Home (with family support and cardiac rehabiliation) Barriers to discharge home: None Mobility equipment available at home: grab bars ADL equipment available at home: none Equipment needed for discharge: (Patient hashas 2WW at home per mom and patient) Current therapy frequency recommendation in acute: Therapy Frequency: 2 times a week Precautions and Weightbearing Status: Existing Precautions/Restrictions: cardiac . Patient must keep wrist straight 4 hrs post sheath removal/hemostasis. Minimize movement of the wrist for 24 hours. Should not lift more than 5 lbs with involved arm for 72 hours. Patient Safety Communication Prior to Visit: Nursing Subjective: Patient's mother reported no concerns about ability to care for patient at home. Patient received sitting in bed no exit alarm on Mother present this date Pt agreeable to PT intervention. Pain: General Pain Documentation (Adult, OB, Peds) Presence of Pain: denies pain/discomfort Home Setting Residence: House (3 levels with basment) First floor setup: tub shower Second floor setup: bedroom, tub shower, grab bars Number of stairs to enter home: 1 Number of stairs in home: 13 Stair Railings at Home: entry - present on right side (ascending) Mobility Equipment Available: grab bars ADL Equipment Available: none Previous Level of Function Prior level ADL Overview: Independent with all ADLs Bed Mobility/Transfers: independent Assistive Device: wheelchair, 2 wheeled walker Level of Ambulation: community Prior Level of Function Details: Pt denied history of falls. 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, very active Objective/Observation: Vitals/Vitals Responses to Treatment: HR prior to mobility: 84 bpm HR after mobility: 93 bpm Respiratory Status O2 Device: room air Cognition Overall Cognitive Status: Within Functional Limits Arousal/Alertness: Appropriate responses to stimuli Orientation Level: Oriented X4 Following Commands: Follows all commands and directions without difficulty Safety Judgment: Good awareness of safety precautions Awareness of Errors: Good awareness of errors made Cognition Comments: Pt with hx of down sydrome Vision Screen Currently wearing corrective lenses: Yes, Progressive lenses Speech Speech: no gross deficits noted Hearing Hearing: no gross deficits noted Extremity Assessments: RUE Assessment RUE Assessment: Within Functional Limits LUE Assessment LUE Assessment: Within Functional Limits RLE Assessment RLE Assessment: Within Functional Limits LLE Assessment LLE Assessment: Within Functional Limits Mobility Assessment: Balance: Sitting Balance Static Sitting-Level of Assistance: Independent Dynamic Sitting-Level of Assistance: Supervision Standing Balance Static Standing-Level of Assistance: Supervision Dynamic Standing-Level of Assistance: Stand-by assist Standing-Balance Support: Rollator Skilled Rationale: Full extension to upright positioning/posture, Upright gaze/neck extension Transfer Assessment: Sit to Stand Transfer [place] Level: Sit->Stand: stand-by assist Assistive Device: Sit->Stand: rollator Skilled Rationale: Full extension to upright positioning/posture Skilled Intervention/Details: Sit->Stand: performed from EOB and toliet Stand to Sit Transfer [place] Level: Stand->Sit: stand-by assist Skilled Rationale: Positioning, Verbal cues, Cues for increased safety Skilled Intervention/Details: Stand->Sit: performed x1 to toilet and x1 to chair Gait/Functional Mobility: Gait Assessment [place] Level: Gait: (CGA without rollator, SBA with rollator) Assistive Device: Gait: rollator Ambulation Distance (Feet): 40 (20 feet x2) Gait Deviations Identified: decreased mari, decreased step length, decreased gait speed, flexed posture Gait Skilled Rationale: verbal, upright posture, increase step length, safety to avoid obstacles Skilled Intervention/Details - Gait: cues for improved posture and navgiation of walker. Pt orginally ambulated to bathroom without walker and demonstrated reaching for items/wall for balance with CGA from therapist. Patient instructed on using walker for return walking and demonstrated improved balance Outcome Score(s): CURRENT AM-PAC Basic Mobility Inpatient Short Form Turning over in bed: 4 - No Assistance Sitting/standing from chair: 3 - A Little Assistance Moving from lying on back to sittin - No Assistance Moving to and from bed to chair: 3 - A Little Assistance Walk in hospital room: 3 - A Little Assistance Climbing 3-5 steps with a railin - A Little Assistance CURRENT AM-PAC Mobility Raw Score: 20 CURRENT AM-[facility] Mobility Functional Limitation/Modifier: 35.83% Currently Impaired in Basic Mobility - Assessment & Plan: Kaylee Tarqi is a 41 y.o. female with PMH of Trisomy 21, DM type 1 w/inslin pump, hypothyroidism who presents as a transfer from [facility] with new EF 15% concerning for viral myocarditis. Course complicated by NSTEMI with subsequent PCI to LAD. Patient seen for therapy evaluation related to functional mobility assessment in setting of recent stenting with decreased endurance and balance contributing to impaired functional mobility and decreased independence. Exam findings include impairments in: Strength, Balance, Coordination, Gait/Locomotion, Aerobic capacity/endurance. These impairments contribute to functional limitations including Decreased ambulation distance/endurance, Increased fall risk, Limited standing tolerance, Decreased functional mobility. Current clinical presentation is Stable - unchanging or predictable (Low). Patient history factors impacting Plan Of Care include hx of down syndrome. Patient will benefit from skilled physical therapy to address these impairments, functional limitations, and participation restrictions and has good rehab potential to achieve therapy goals. Planned Therapy Interventions: balance training, endurance, functional activity tolerance, transfer training, strengthening, gait training Patient Instruction/Education this session: Safe functional mobility and Gait training Plan for next session: Progress endurance, stair training Acute PT Goals Plan of Care by Naila Valdez PT at 04/05/2022 9:56 AM Version 1 of 1 Problem: PT - Mobility Goal: Ambulation Description: Pt will ambulate 250 feet with least restrictive device with modified independence to improve ability to navigate home environment. Outcome: Ongoing Goal: Stairs Description: Pt will ascend/descend 13 stairs with railings with supervision with least restrictive device to improve ability to perform functional mobility necessary in recommended discharge environment. Outcome: Ongoing Problem: PT - Transfers Goal: Sit <-> Stand Description: Pt will perform sit to/from stand transfers with independence with out an assistive device in order to improve functional mobility and safety. Outcome: Ongoing Evaluating Therapist: Naila Valdez PT Additional Details: Co-evaluation/co-treatment performed?: Yes, simultaneous billable skilled care This co-evaluation session performed between PT and OT was beneficial, necessary and provided distinct services in establishing this person's individual plan of care. Medical complexity with functional deficits necessitated two skilled therapy disciplines working concurrently to determine each discipline's goals. This co-treatment was medically necessary due to patient's: Coordination issues I was assisted by Francisca RYAN for today's session. and I used facemask, protective eye shield, and gloves in today's patient interaction. Evaluation Complexity Components History: Moderate (1-2 personal factors and/or comorbidities) Body Systems Review: Low (Addressing 1-2 elements) Clinical Presentation: Stable - unchanging or predictable (Low) Clinical Decision Making: Low Time In: 0956 Time Out: 1012 Total Visit Time: 16 minutes Total Treatment Time (skilled, billable minutes): 16 minutes Patient location at end of session: chair Alarms on at end of session: none, RN aware and mother in room Needs in reach. Upon discontinuation of Acute Care Physical Therapy Services or patient discharge from the hospital this note represents the current Physical Therapy Discharge Summary. Received call from pt's mother, Pam Tariq ([phone]) stating her daughter was admitted overnight to [facility] & requested a list of nearby hotel options be sent to her email: [email or web address]; list forwarded via email. Pt's mother states she will be coming to the hospital this afternoon. No other SW needs identified at this time. Elise [facility] Medical Social Work Heart Failure 2/Advanced Heart Failure Progress Note Provider: Mariely Ribeiro APRN-APPAREL DESIGNER IDENTIFYING INFORMATION PATIENT: Kaylee Tariq, 1980, [id number] LOS: 1 Code Status: Full Code Daily Plan: Plan of Care for Today: - increase lasix to 80 mg IV bid - stat echo; rule out RWMA/pericardial effusion - serial troponins - emergent LHC - baby aspirin daily - transfer to 1 Subjective/Interval Note Overnight Issues: ERT called this morning for vagal episode returning from bathroom. Troponin > 24K. I/O: 650 mL UOP, Net + 150 mL, Net IO Since Admission: 150 mL [04/04/22 0602] Daily Weight: Admission weight: 77.2 Current weight: Weight: 77.2 kg (170 lb 3.1 oz) (standing) Diet: DIET CARDIAC - VERY LOW SODIUM Fluid Restriction 2000mL (1000mL Nursing, 1000mL Nutrition) Telemetry personally reviewed: sinus rhythm, trigeminy DVT Prophylaxis: Lovenox Activity: Cardiac rehab Review of Systems Cardiovascular: Positive for dyspnea on exertion, near-syncope (vagal episode this morning) and orthopnea. Respiratory: Positive for cough. Endocrine: Negative. Skin: Positive for itching and rash (round itching rash right shoulder). Musculoskeletal: Negative. Gastrointestinal: Positive for bloating and nausea. Neurological: Negative. Developmentally delayed Hospital Course: Kaylee Tariq is a 41 y.o. female with PMH of Trisomy 21, DM type 1 w/inslin pump, hypothyroidism who presents today as a transfer from [facility] with new EF 15%. Pt is poor historian giving limited answers to questions. Unable to contact mother at time of exam. Review of records reveals she presented to OSH on 03/28 with fevers and encephalopathy associated with nonproductive cough for 1 week. In the ED she was given 2 L IV fluids with improvement in lethargy. CBC and Chem were unremarkable. Lactate was elevated at 2.5. Infectious work up with UA, blood cultures, Covid and influenza were negative. Continued work up during admission included an Echo which revealed EF 15%. Previous Echo 09/2020 EF was 65%. She was started on IV Lasix 40 mg. Insulin pump was discontinued on 03/29 at [facility]. Currently covered with Lantus and sliding scale insulin. Of note, she was evaluated at [facility] for VSD and syncope. 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 Syncope was thought to be vasovagal in origin. She was prescribed midodrine and encouraged to liberalize fluid intake. She was [facility] for further evaluation and medication optimization. 04/03 IV lasix 40 mg bid 04/04 losartan 12.5 mg bid, increase lasix to 80 mg bid. Markedly elevated troponin. Emergent [facility] Primary Diagnosis: Acute systolic heart failure (HFrEF) / etiology unknown/rule out ischemic etiology vs myocarditis NYHA class III, ACC/AHA C EF 15%, LVIDD: 5.6 Date of Diagnosis: 03/30/22 GDMT: Lab Results Component Value Date BNP 985 (H) 04/03/2022 Diuretic: none - IV Lasix 40 mg BID Beta blockade: none ACEi / ARB / ARNI: none Aldosterone Antagonist (MRA): none SGLT2i: none Vasodilator: none Inotrope: none Device Therapy: new dx Strict I/O Daily weight Cardiac diet 2 gm sodium with 2 liter fluid restriction Plan: increase IV Lasix to 80 mg BID add losartan 12.5 mg bid Congenital heart disease 10/04 echo revealed a small VSD in the membranous region that has resolved. It appeared to have spontaneously closed by a small pouch of accessory tricuspid tissue [place] Coronary Artery Disease No know history of CAD. Risk factors DMT1 Denies chest pain. EKG without ST elevation tropoinin 24,643 Emergent LHC Hypotension Received 2 L IVF at OSH Hold midodrine Currently limiting GDMT BP Readings from Last 3 Encounters: 04/04/22 108/75 Hyperlipidemia No results found for: CHOLESTEROL, TRIG, HDL Normal renal function Lab Results Component Value Date CREATSERUM 0.86 04/03/2022 Lab Results Component Value Date GFR 88 04/03/2022 CrCl cannot be calculated (Unknown ideal weight.). Electrolyte Abnormalities - Maintain K > 4, Mg > 2 - Replete PRN - Na Lab Results Component Value Date SODIUM 134 (L) 04/03/2022 - K+ Lab Results Component Value Date POTASSIUM 3.8 04/03/2022 - Cl Lab Results Component Value Date CHLORIDE 100 04/03/2022 - Mg Lab Results Component Value Date MAGNESIUM 1.5 (L) 04/03/2022 Trisomy 21: Poor historian. Lives with Parents. Unable to contact mother this evening. She will be here in AM per nursing report. Acute hypoxic respiratory failure: On RA at baseline. Currently 2 L NC Wean oxygen as able ID: Admitted with fever, encephalopathy, cough. Was treated for staph abdominal wall cellulitis, now resolved. Seen by ID at OSH. Respiratory viral pcr panel, blood cx and lyme were negative. No abx were given. Lab Results Component Value Date WBC 4.69 04/04/2022 WBC 4.44 04/03/2022 Rash right shoulder Consult derm heme Lab Results Component Value Date HGB 11.4 04/04/2022 HGB 11.7 04/03/2022 No results found for: IRON, FERRITIN No results found for: TRANSFERRIN No results found for: TIBC Tsat% (Serum Iron/TIBC) x 100 Obesity (There is no height or weight on file to calculate BMI.; >40=morbid obesity, >30=obesity; <19, consider cardiac cachexia) Patient given education regarding Lifestyle Modification Secondary to Excess Caloric intake and decreased Caloric Expenditure Thyroid Evaluation Hypothyroid - continue levothyroxine Check TSH with reflex T4 No results found for: TSH, TSHBASELINE, TSHULTRASEN, T3FREE, P0DMOAPWD, X8JNHHY, J3VZMXTN, T4FREE, TPOAB DMT1: On insulin pump at home. Discontinued on 03/29 at OSH. Continue Lantus 10 units AM and SSI. - consult to Endo check A1C Recent Labs 04/03/22203404/03/22 2217 GLUCOSE 238* 283* No results found for: HGBA1C Multi-disciplinary decision making was completed with representatives from Heart Failure Cardiology, Psychology (Behavioral Cardiology), ALEXA's, nursing and PharmDs. Objective: Temp: [97.9 F (36.6 C)-98.1 F (36.7 C)] 98.1 F (36.7 C) Pulse (Heart Rate): [75-96] 77 Resp Rate: [16-18] 18 BP: (99-108)/(66-76) 108/75 O2 Sat (%): [91 %-94 %] 91 % Weight: [77.2 kg (170 lb 1.6 oz)-77.2 kg (170 lb 3.1 oz)] 77.2 kg (170 lb 3.1 oz) There is no height or weight on file to calculate BMI. Physical Exam Constitutional: She appears chronically ill. Neck: JVD (to the jaw) present. Cardiovascular: Normal rate, regular rhythm, S1 normal and S2 normal. Frequent extrasystoles are present. Pulses: Radial pulses are 2+ on the right side and 2+ on the left side. Pulmonary/Chest: DBS right base Abdominal: Soft. Bowel sounds are normal. Musculoskeletal: General: Edema (trace) present. Neurological: She is alert and oriented to person, place, and time. Developmentally delayed Skin: Skin is warm and dry. Round itchy rash right shoulder Patient Lines/Drains/Airways Status Active Lines, Drains, Airways, & Wound Overview Name Placement date Placement time Site Days Peripheral IV Line - Single Lumen 04/03/222019 metacarpal vein (top of hand), right 20 gauge 04/03/222019 -- less than 1 Peripheral IV Line - Single Lumen 04/03/222019 metacarpal vein (top of hand), left 20 gauge 04/03/222019 -- less than 1 Wound Other (comment) 04/03/222020 Lateral;Right;Upper Back 04/03/222020 Back less than 1 Data Review: Patient Active Problem List Diagnosis Acute systolic heart failure Recent Labs 04/03/22221604/04/22 0208 WBC 4.44 4.69 HGB 11.7 11.4 HCT 34.9 34.6* PLATELET 245 253 SODIUM 134* -- POTASSIUM 3.8 -- CHLORIDE 100 -- CO2 25 -- BUN 14 -- CREATSERUM 0.86 -- BNP 985* -- Recent Labs 04/03/222216 ALKPHOS 104 AST 40* ALT 31 ALBUMIN 3.0* INR 1.1 Last Echo: Priscilla 03/30/22L Nml LV size, EF 15%, severe global hypokinesis, mild MR, mild/mod TR, RSVP 48 mmHg. [facility] 10/01/20 1. Trisomy 21. 2. Ventricular septum: There appears to be small ventricular septal defect in the membranous region which has been resolved. It appears to have spontaneously closed by a small pouch of accessory tricuspid tissue. No ventricular level shunt. 3. Aorta: The arch is left-sided. The brachiocephalic branching pattern is abnormal. The right common carotid artery is the first aortic branch. 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 4. Normal left ventricular size and systolic function. 5. Doppler interrogations of all valves were within normal limits. 6. Estimated right ventricular systolic pressure is normal. ammonium lactate 1 Application Topical BID enoxaparin 30 mg Subcutaneous Q12H escitalopram 5 mg Oral Daily furosemide (LASIX) injection/IVPB 40 mg Intravenous BID AC insulin glargine injection 10 Units Subcutaneous Daily insulin lispro Subcutaneous 4x daily w/meals, HS levothyroxine 50 mcg Oral Before BKF Imaging No orders to display Discussed with team on rounds. This plan will be discussed with Dr. Elizabeth Maxwell MD, the attending surveillance system monitor. Please see attending attestation from same day for complete and updated assessment/plan. DISCHARGE PLANNING: Dispo/Debility TBD Follow Up Appointments: TBD Please Ensure Follow Up Labs / Testing are scheduled: TBD Mariely Ribeiro APRN-TELLY HF2/Advanced Heart Failure Phone: [phone] Associated attestation - Elizabeth Maxwell MD - 04/04/2022 6:01 PM EST I saw and personally examined the patient today with the advanced practice provider on rounds. I discussed the findings and therapeutic plan with the advanced practice provider. I agree with the history, examination, and medical decision making as noted by the advanced practice provider. Briefly: #NSTEMI: Troponin this AM markedly elevated. Underwent coronary angiography with stent to proximal LAD. Continue asa/ticagrelor. Start statin. #Acute on chronic systolic heart failure: LVEDP of 50 mmHg on cath. Continue with IV diuresis. Started low dose losartan. Suspicous for underlying myocarditis still. Would obtain cMRI #DM1: Endocrinology consulted Elizabeth Maxwell MD Advanced Heart Failure/Transplant Cardiology documented in this encounter [facility] Narrative Discharge Summary Name: Kaylee Tariq Age: 41 y.o. Birthday: 1980 Admit Date: 04/03/2022 8:12 PM Discharge Date: 04/09/2022 Discharge Time: 1300 Discharge Unit: [facility], Heart Failure 1 Admission Information Admitting Physician: Timothy Marks MD Discharge Information Discharge Physician: Timothy Marks MD Problem List Active Hospital Problems Diagnosis Acute systolic heart failure Coronary artery disease involving [place] coronary artery of [place] heart without angina pectoris Type 1 diabetes mellitus with hyperglycemia Resolved Hospital Problems Diagnosis Date Resolved NSTEMI (non-ST elevated myocardial infarction) 04/09/2022 FURTHER RECOMMENDATIONS: - Patient given iron infusion prior to discharge, continue to monitor needs for further transfusions/supplementation in setting of HFrEF - Patient to resume insulin pump in setting of T1DM, follow up with [facility] Endocrinology - Patient will follow up with [facility] Cardiology, Heart Failure, and Cardiac Rehab DISCHARGE LETTER: Dear Doctors, I recently had the opportunity to care for Kaylee Tariq during her recent hospital stay at [facility]. As you may know, Kaylee Tariq, is a 41 y.o. female with a past medical history significant for Trisomy 21, diabetes mellitus type 1 on continuous insulin pump, and hypothyroidis who presented at the time of admission with severe LV dysfunction. The following describes her hospital course. Acute systolic heart failure with reduced ejection fraction in setting of coronary artery disease Initially suspected myocarditis as echocardiogram at OSH revealed newly reduced EF 15% (prior cardiac MRI from 2020 showed no dysfunction). However, infectious evaluation was negative and in the setting of a syncopal episode patient was found to have elevated troponin >24k. LHC performed with LAD lesion s/p MADHURI, TANK ERECTOR of LCx, RCA with minimal disease. Cardiac MRI demonstrated diffuse transmural fibrosis without evidence of myocarditis. Patient started on GDMT with metoprolol 12.5 mg daily, spironolactone 12.5 mg daily in addition to torsemide 20 mg daily. For her CAD she was discharged on daily statin/aspirin and Ticagrelor twice daily. Titration of GDMT in the hospital was somewhat limited by low blood pressures. Type 1 diabetes mellitus on insulin pump at home Insulin pump was discontinued at OSH prior to transfer. She was placed on glargine with sliding scale insulin during admission with endocrinology management. Her A1c noted to be 7.7 as patient reported not taking mealtime insulin via insulin pump at home. Recommended to continue prior basal insulin via pump upon discharge with additional mealtime insulin. Fever with encephalopathy Resolved prior to admission, non-productive cough continued with negative infectious evaluation. Physical Exam on the Date of Discharge: Vitals: 04/09/22 1101 BP: 81/62 Pulse: 86 Resp: Temp: Wt Readings from Last 1 Encounters: 04/09/22 66.1 kg (145 lb 11.6 oz) Gen: NAD, well-appearing HENT: NCAT, EOMI, MMM Cardio: RRR, normal S1/S2, no murmur, good distal pulses. No JVD at 90 degrees, minimal HJR Resp: CTA b/l, no increased WOB GI: Soft, NT, ND, normal BS MSK: no joint swelling or erythema Ext: warm and well-perfused, no BLLE edema Neuro: Alert and oriented, moving all four extremities Diet was DIET CARB CONTROLLED Upon discharge the patient's code status full It has been my pleasure participating in this patient's care. Please contact me with any questions or concerns regarding her hospital stay. Sincerely, Gabino Enriquez MD Dictated under attending physician Timothy Marks MD CONSULTS DURING ADMISSION: IP CONSULT TO ENDOCRINOLOGY - DIABETES IP CONSULT TO DERMATOLOGY IP CONSULT TO PHYSICAL THERAPY IP CONSULT TO OCCUPATIONAL THERAPY IP CONSULT TO FUSING MACHINE FEEDER IMAGING / PROCEDURES / RESULTS: MRI CARDIAC WITH CONTRAST W/VELOCITY FLOW MAP Final Result LEFT VENTRICLE: Quantitative LVEF 19 %. LV cavity is severely enlarged. LV systolic function is severely decreased globally. VIABILITY: Late gadolinium enhancement demonstrates subendocardial to transmural fibrosis in all myocardial segments except basal inferior and inferolateral wall. RIGHT VENTRICLE: Quantitative RVEF 34 %. RV cavity size is normal. RV systolic function is moderately decreased globally. LV/RV SEPTUM: The ventricular septum is intact. LEFT ATRIUM: LA cavity size is normal. RIGHT ATRIUM: RA cavity size is normal. PERICARDIUM: There is a small pericardial effusion. There is a circumferential pericardial effusion. PLEURAL EFFUSION: There is a small left pleural effusion. There is a moderate right pleural effusion. AORTIC VALVE: Peak aortic valve velocity 1.23 m/sec. There is trivial aortic regurgitation. MITRAL VALVE: There is trivial mitral regurgitation. TRICUSPID VALVE: There is trivial tricuspid regurgitation. PULMONIC VALVE: There is trivial pulmonic regurgitation. AORTIC ROOT: The aortic root is normal on non MRA study OTHER FINDINGS: There is evidence of myocardial inflammation/edema on T2 mapping; however the findings are limited by motion and inadequate breath hold. ECV 41 % (normal < 31%) suggestive of diffuse interstitial expansion ECHOCARDIOGRAM LIMITED/FOLLOWUP Final Result Left ventricular size is mildly enlarged at end-systole. Severe hypokinesis to akinesis of all segments, sparing the basal inferior and basal inferolateral segments. Pattern of contractility and appearance of the ventricular function is most consistent with a non-ischemic cardiomyopathy, despite presence of known coronary disease. Ejection fraction +/-22% consistent with severe systolic dysfunction. Left atrium visually appears normal in size Right ventricle is normal in size and function. Right atrium visually appears normal in size Valve structures are consistent with age. Function not assessed Should you require further information or copies of results or reports please contact [employer] @ [phone] LABS AT TIME OF DISCHARGE: Lab Results Component Value Date SODIUM 136 04/09/2022 POTASSIUM 4.8 04/09/2022 MAGNESIUM 1.9 04/09/2022 BUN 18 04/09/2022 CREATSERUM 0.98 04/09/2022 Lab Results Component Value Date WBC 5.52 04/09/2022 HGB 11.5 04/09/2022 PLATELET 237 04/09/2022 INR 1.1 04/03/2022 Lab Results Component Value Date HGBA1C 7.7 (H) 04/05/2022 PATIENT'S MEDICAL HOME AT DISCHARGE: Kaylee Estrada [address] [facility] [place] [facility] [address] MEDICATIONS: Medication List for when you go home START taking these medications aspirin 81 MG CHEW chewable tablet Chew 1 tablet daily. Start taking on: April 10, 2022 metoprolol succinate 25 MG tablet XL Take 0.5 tablets by mouth daily. Commonly known as: TOPROL-XL Start taking on: April 10, 2022 rosuvastatin 40 MG TABS Take 1 tablet by mouth daily with dinner. Commonly known as: CRESTOR spironolactone 25 MG TABS Take 0.5 tablets by mouth daily. Commonly known as: ALDACTONE Start taking on: April 10, 2022 ticagrelor 90 MG TABS Take 1 tablet by mouth every 12 hours. Commonly known as: BRILINTA torsemide 20 MG TABS Take 1 tablet by mouth daily. Commonly known as: DEMADEX CONTINUE taking these medications ammonium lactate 12 % LOTN lotion Apply 1 Application topically 2 times daily. Commonly known as: LAC-HYDRIN escitalopram 5 MG TABS Take 5 mg by mouth daily. Commonly known as: LEXAPRO levothyroxine 50 MCG TABS Take 50 mcg by mouth every morning before breakfast. Commonly known as: SYNTHROID ondansetron 4 MG ODT tablet Take 4 mg by mouth every 8 hours as needed. Commonly known as: ZOFRAN-ODT Follow-up: Heart Failure Care Navigation You can reach a HF Care Navigation Nurse at Hours are: - Wednesday - from 8 AM - 9 PM ET - Fridays - 8 AM - 5PM ET - After-hours calls will be returned on the next business day For urgent Evening, Weekend and Holiday p... Follow up Kaylee Estrada DO [address] [place] [phone] Schedule an appointment as soon as possible for a visit [facility] recommends all recently hospitalized patients call their primary care physician/family doctor to schedule an appointment to be seen in 7-10 days. Jonah Hemphill MD [address] [facility] [address] [facility] [phone] Follow up in 1 month(s) endocrine - follow-up as directed Benny Almonte MD [address] [facility] [address] [place] [address] Follow up on 05/08/2022 cardiology - 9:30am. arrive 15 min prior Upcoming Appointments (up to five)-Some appointments for Medical Center outpatient clinics or diagnostic testing locations are not displayed below Provider Department Dept Phone 04/14/2022 1:00 PM [facility] [place] Arrive at: Arrive to 1st Floor Registration [phone] 04/21/2022 11:00 AM [facility], [facility] Pharm[facility] Clinic Telehealth Arrive at: THIS IS A VIDEO VISIT, DO NOT GO TO THE CLINIC. [phone] Associated attestation - Timothy Marks MD - 04/09/2022 12:28 PM EST I saw and personally examined the patient on the day of discharge with the resident on rounds. I discussed the findings and therapeutic plan with the resident. I agree with the history, examination, and medical decision making as noted by the resident. In total, 35 minutes was spent on discharge planning. Ms. Tariq is a 41 year old female with history of Trisomy 21, diabetes mellitus type 1 on an insulin pump, and hypothyroidism. She was admitted for suspected myocarditis after presenting to an outside facility with fevers and cough and ultimately found to have a newly reduced LV ejection fraction. Upon her arrival here, she was found to have a markedly elevated troponin level and she was taken to the label folder emergently. There she was found to have high grade epicardial CAD including TANK ERECTOR of the proximal Lcx and high grade stenosis of the LAD with poor runoff, in addition to R to L collateral flow from a patent RCA. She had MADHURI to the LAD. Her LVEDP was found to be 45 mmHg during the cath. She was brought to our service, where after we diuresed her aggressively and instituted GDMT, though limited by systemic hypotension. A cardiac MRI was obtained and showed predominant ischemic cardiomyopathy with largely non-viable ventricle and elevated T2 signal suggesting edema. It is hard to know if she had subacute/chronic CAD and ICM isolated or with superimposed viral myocarditis. She was noted to have PVCs after the PCI and as such we started low dose beta vanessa and plan to uptitrate this as an outpatient. Notably, I do not expect much LVEF recovery given the degree of scar of her ventricle but high PVC burden contributing to myopathy can be considered as an outpatient. She was discharged on metoprolol succinate 25 mg daily, spironolactone 25 mg daily, ASA 81 mg daily, ticagrelor 90 mg BID, torsemide 20 mg daily, and rosuvastatin 40 mg daily. She will plan to follow-up with the [facility] system as her family preference. Timothy Marks MD Advanced Heart Failure and Cardiac Transplant Program [facility] documented in this encounter [facility] 04-09-2022 Reason for referr al (narrative) Specialty Diagnoses / Procedures Referred By Bib michael Referred To Contact Gabino Enriquez MD [address] [place] [address] Referral ID Status Reason Start Date Expiration Date Visits Re quested Visits Authorized * Adjunctive Therapy (Routine) - New Request Specialty Diagnoses / Procedures Referred By Bib michael Referred To Contact Diagnoses Acute systolic heart failure Timothy Marks MD [address] [place] [phone] Referral ID Status Reason Start Date Expiration Date V isits Requested Visits Authorized [id number] New Request 04/09/2022 05/04/2023 1 1 Scheduling Instructions The [facility] Cardiac Rehab Program Cardiac Rehab at [place] [address] Cardiac Rehab class days offered at this location: Wednesday Cardiac Rehab class times offered at this location: 7:30am - 8:30am 9:00am - 10:00am 10:30am - 11:30am 12:00pm - 1:00pm 2:00pm - 3:00pm 3:30pm - 4:30pm 5:00pm - 6:00pm [facility]iac Re[facility] Program [address] [place] [address] Cardiac Rehab class days offered at this location: Wednesday Cardiac Rehab class times offered at this location: 7:45am - 8:45am 8:45am - 9:45am 9:45am - 10:45am 10:45am - 11:45am * Consultation (Routine) - New Request Specialty Diagnoses / Procedures Referred By Contac t Referred To Contact Diagnoses Acute systolic heart failure Timothy Marks MD [address] [place] [address] Referral ID Status Reason Start Date Expiration Date V isits Requested Visits Authorized [id number] New Request 04/06/2022 05/01/2023 1 1 * Consultation (Routine) - New Request Specialty Diagnoses / Procedures Referred By Contact Referred To Contact Cardiovascular Medicine Diagnoses Acute systolic heart failure Timothy Marks MD [address] [address] Referral ID Status Reason Start Date Expiration Date V isits Requested Visits Authorized [id number] New Request 04/07/2022 05/02/2023 1 1 Scheduling Instructions Please schedule this patient in the Department of Cardiology. 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, formal follow up in 3 months * (Routine) Specialty Diagnoses / Procedures Referred By Contac t Referred To Contact Felix Farris MD [address] [place] [address] Referral ID Status Reason Start Date Expiration Date Visits Re quested Visits Authorized * (Routine) - Pending Review Specialty Diagnoses / Procedures Referred By Contac t Referred To Contact Procedures DVT/VTE RISK ASSESSMENT Timothy Marks MD [address] [place] [address] Referral ID Status Reason Start Date Expiration Date V isits Requested Visits Authorized [id number] Pending Review 04/03/2022 04/28/2023 1 1 [facility]11-21-2022 Note* Nursing Notes - Tammy Carlisle RN - 04/06/2022 3:29 PM EST 04/06/22 1528 Barriers to Discharge Barriers to Discharge Physician Decision Explanation of Barriers Medically not stable. Medical Milestone Medical Milestones Remaining In need of Cardiac MRI Discharge Planning Anticipated discharge disposition Home .mle [facility]11-21-2022 Hospital Discharge instructions* Discharge Instructions* Gabino Enriquez MD - 04/06/2022 11:01 AM EST Images from the original note were not included. Kaylee was admitted to the hospital with a new diagnosis of heart failure, evaluation of the cause ofher heart failure showed coronary artery disease which was treated with a drug-eluting stent to herleft anterior descending artery. She will be taking new medications to improve the function of her heart, keep her body fluid at a safe level, and prevent further clot formation in her coronary arteries. Her cardiac MRI showed no evidence of heart inflammation, but did show extensive scarring of the heart muscle due to decreased blood flow. You qualify for Heart Failure (HF) Care Navigation upon discharge: A HF Care Navigation Nurse will call you within 48 hours of receiving notification of your discharge home. The nurse will provide support telephonically for up to 30 days post-discharge. Support includes assistance with coordinating appointments, medical equipment if ordered by your provider, and ongoing education. You can reach a HF Care Navigation Nurse at Hours are: - Wednesday - from 8 AM - 9 PM ET - Fridays - 8 AM - 5PM ET - After-hours calls will be returned on the next day For urgent Evening, Weekend and Holiday please call [phone] Ask the gravure press operator to page the on-call doctor for the service that was responsible for your care while you were in the hospital. For medical emergencies please dial 911 For more information about Heart Failure please visit this link for an online interactive workbook or QR code below: [email or web address] Insulin Pump Management Create Custom Foods: Preset Manual Bolus: * Attachments The following attachments cannot be sent through Care Everywhere. * Stent: How to Protect ([facility]) (Haitian) * Heart Failure (Haitian) * Coronary Artery Disease (Haitian) [facility]* Nursing Notes - Tammy Carlisle RN - 04/06/2022 10:24 AM EST 04/06/22 1024 Important Message from Medicare Was Important Message from Medicare Given Yes Important Message from Medicare Given To Patient Method Which Important Message from Medicare Was Provided In-Person Was the Important Message from Medicare Faxed to [facility] N/A Tammy HERNANDEZ MBA Clinical Air Liaison And Special Staff [facility]11-20-2022 Note* Nursing Notes - Sheridan Brock RN - 04/05/2022 5:39 PM EST 2 Ross Daily Rounding Plan of Care The following multidisciplinary plan of care was discussed with the attending service regarding Kaylee Tariq. Today's Plan of Care: Continue diuresis, GDMT, topical for skin infection. Cardiac Monitoring Current Cardiac Monitoring order: no Renewal order indicated yes 4 hour telemetry recall: Trigeminy Oxygen O2 Sat (%): 95 % (04/05 1433) O2 Device: room air (04/05 1700) LDAs The type, length of duration and necessity of all lines and drains listed below was reviewed, in order to prevent any possible sources of infection and encourage timely removal. - [place] indicated: No - Central line indicated: No Patient Lines/Drains/Airways Status Active Lines, Drains, Airways, & Wound Overview Name Placement date Placement time Site Days Peripheral IV Line - Single Lumen 04/03/222019 metacarpal vein (top of hand), left 20 gauge 04/03/222019 -- 1 Wound Other (comment) 04/03/222020 Lateral;Right;Upper Back 04/03/222020 Back 1 Wound Sheath Site 04/04/22 1215 Right Radial 04/04/22 1215 Radial 1 Mobility Activity plan: with minor assitance PT/OT: yes Need for DVT prophylaxis: yes Consults/Discharge Planning Social Work: yes Case Management needs: yes Cardiac rehab: no Estimated Discharge: Date Unknown Sheridan Brock RN [facility]11-20-2022 Note* Plan of Care - Francisca William OT - 04/05/2022 10:12 AM EST Problem: OT - ADLs Goal: Toileting Description: Pt will complete toileting task including clothing management with independence for improved ability to safely complete self-care activities. Outcome: Ongoing Goal: Bathing Description: Pt will perform full body bathing routine with independence while standing for improved ability to complete self-care activities. Outcome: Ongoing Problem: OT - Endurance Goal: Endurance Functional Mobilty Around Home Description: Pt will complete distance needed for limited community mobility with independence. Outcome: Ongoing Goal: Endurance Functional Task Standing Description: Pt will engage in standing functional task for 10 minutes with independence to improveactivity tolerance necessary for safe ADL completion at recommended discharge destination. Outcome: Ongoing Problem: OT - Transfers Goal: Transfers Toilet/Bedside Commode Description: Pt will transfer to/from toilet/BSC with independence for improved ability to safely complete ADLs. Outcome: Ongoing [facility]11-20-2022 Note* Plan of Care - Naila Valdez PT - 04/05/2022 9:56 AM EST Problem: PT - Mobility Goal: Ambulation Description: Pt will ambulate 250 feet with least restrictive device with modified independence to improve ability to navigate home environment. Outcome: Ongoing Goal: Stairs Description: Pt will ascend/descend 13 stairs with railings with supervision with least restrictivedevice to improve ability to perform functional mobility necessary in recommended discharge environment. Outcome: Ongoing Problem: PT - Transfers Goal: Sit <-> Stand Description: Pt will perform sit to/from stand transfers with independence with out an assistive device in order to improve functional mobility and safety. Outcome: Ongoing [facility]11-19-2022 Note* Transfer Note - Elisa Barrera MD - 04/04/2022 12:34 PM EST Transfer Note PATIENT: Kaylee Tariq ADMIT DATE: 04/03/2022 Subjective History Kaylee Tariq is a 41 y.o. female with PMH of Trisomy 21, DM type 1 w/inslin pump, hypothyroidism who presents today as a transfer from [facility] with new EF 15%. 03/28: Presented to [facility] with fever, encephalopathy and non-productive cough x 1 week. Infectious workup negative. TTE revealed newly reduced EF of 15% 04/03: Transferred to [facility], admitted to HF2. 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 LVEDP severely elevated. Transferred to HF1. Medications SCHEDULED: acetaminophen (TYLENOL) tablet, , ammonium lactate (LAC-HYDRIN) 12 % lotion 1 Application, 1 Application, BID aspirin chewable tablet 81 mg, 81 mg, Daily Enoxaparin Sodium (LOVENOX) injection 40 mg, 40 mg, Daily escitalopram (LEXAPRO) tablet 5 mg, 5 mg, Daily furOSEmide (LASIX) injection 80 mg, 80 mg, BID AC insulin glargine injection 10 Units, 10 Units, Daily insulin lispro (HumaLOG) injection, , 4x daily w/meals, HS levothyroxine (SYNTHROID) tablet 50 mcg, 50 mcg, Before BKF ticagrelor (BRILINTA) tablet 90 mg, 90 mg, Q12H FLUIDS/DRIPS: tirofiban 0.15 mcg/kg/min (04/04/22 1134) PRNs: acetaminophen, 650 mg, Q6H PRN alum/mag hydrox.-simethicone, 30 mL, Q6H PRN benzocaine-menthol, 1 lozenge, Q2H PRN insulin lispro, , PRN And dextrose, 7.5-25 g, As directed PRN And glucose, 1-2 Tube, As directed PRN melatonin, 6 mg, QHS PRN ondansetron, 4 mg, Q8H PRN polyethylene glycol, 17 g, Daily PRN Polyvinyl Alcohol-Povidone PF, 1 drop, Q1H PRN sodium chloride 0.9%, 250 mL, PRN ALLERGIES: She has no allergies on file. Objective Findings Vital Signs (24hrs): Temp: [97.4 F (36.3 C)-98.1 F (36.7 C)] 97.4 F (36.3 C) Pulse (Heart Rate): [30-104] 95 Resp Rate: [13-29] 17 BP: (95-138)/(66-106) 122/89 O2 Sat (%): [91 %-99 %] 97 % Weight: [77.2 kg (170 lb 1.6 oz)-77.2 kg (170 lb 3.1 oz)] 77.2 kg (170 lb 3.1 oz) Hemodynamic/Invasive Device Data (24 hrs): Pulmonary/Cardiac Hemodynamics Pulse (Heart Rate): 95 Neuro ICP/CPP Monitoring MAP (mmHg): 102 mmHg Neuro ICP/CPP Monitoring 2 MAP (mmHg): 102 mmHg Ventilation/Oxygen Therapy (24hrs): Oxygen Therapy O2 Sat (%): 97 % O2 Device: room air Lines/Drains/Airways/Wounds: Patient Lines/Drains/Airways Status Active Lines, Drains, Airways, & Wound Overview Name Placement date Placement time Site Days Peripheral IV Line - Single Lumen 04/03/222019 metacarpal vein (top of hand), right 20 gauge 04/03/222019 -- less than 1 Peripheral IV Line - Single Lumen 04/03/222019 metacarpal vein (top of hand), left 20 gauge 04/03/222019 -- less than 1 Wound Other (comment) 04/03/222020 Lateral;Right;Upper Back 04/03/222020 Back less than 1 Wound Sheath Site 04/04/22 1215 Right Radial 04/04/22 1215 Radial less than 1 Fluid Management (24hrs): -Intake/Output last 3 shifts: I/O last 3 completed shifts: In: 800 [P.O.:800] Out: 650 [Urine:650] Physical Examination: Gen: NAD, well-appearing HENT: NCAT, EOMI, MMM Cardio: RRR, normal S1/S2, no murmur, good distal pulses Resp: CTA b/l, no increased WOB GI: Soft, NT, ND, normal BS MSK: no joint swelling or erythema Ext: warm and well-perfused, no LE edema Neuro: Alert and oriented, moving all four extremities Diagnostic Results Labs-ABGs Labs-CBC WBC/Hgb/Hct/Plts: 4.69/11.4/34.6/253 (04/04 208) Labs-Chem 7([facility]) Bun/Creat/Cl/CO2/Glucose: 13/0.69/101/24/327 (04/04 162-04/04 759) Na/K+/Phos/Mg/Ca: 134/4.4/2.3/1.5/7.9 (04/03 2217-04/04 0753) Labs-Coags Ptt/Pt/Inr: 31.6/14.1/1.1 (04/03 2217) Additional Labs Lab Results Component Value Date BNP 985 (H) 04/03/2022 No results found for: TROP No results found for: CHOLESTEROL, TRIG, HDL Assessment & Plan Kaylee Tariq is a 41 y.o. female with PMH of Trisomy 21, DM type 1 w/inslin pump, hypothyroidism who presents as a transfer from [facility] with new EF 15% concerning for viral myocarditis. Course complicated by NSTEMI with subsequent PCI to LAD. Major Updates Today: - S/p MADHURI to LAD - IV Lasix 80 mg BID - Continue Ticagrelor/ASA - Afterload reduction: Hydralazine 25 mg TID Acute systolic heart failure (HFrEF) Unknown etiology Patient presented to [facility] on 03/28 with a week of fever, encephalopathy and non- productive cough. TTE revealed newly reduced EF 15%. Concern for myocarditis given negative infectious workup, but concern for acute viral illness. Patient also with new CAD found during admission after syncopal episode on 04/04 and subsequent workup revealing HsTrop > 24,000. LHC revealed ostial LAD lesion, now s/pPCI. Systolic dysfunction could be multifactorial in the setting of ischemic disease and inflammatory viral myocarditis. - Cardiac MRI ordered - Continue diuresis NSTEMI CAD s/p PCI to LAD 04/04, patient with syncopal event and subsequent troponin elevation to 24,643. EKG without ST changes. Taken emergently to C which revealed ostial lesion in the LAD, now s/p MADHURI. Risk factors include T1DM. - Continue Ticagrelor 90 mg BID - Continue ASA 81 mg daily - Will need high-intensity statin for secondary prevention prior to discharge - T1DM management as below T1DM Patient diagnosed at age 15. Uses insulin pump/Dexcom sensor at home. Mother has pump supplies at home, currently not being used. - Continue Lantus 10 units daily - SSI carb coverage/correction - A1c ordered - Diabetes consult for re-initiation of insulin pump Dermatophyte Infection - R shoulder - Derm consulted, appreciate recs - Prn calomine lotion - Clotrimazole cream BID Hypothyroidism - Continue levothyroxine 50 mcg daily Code Status: Full Code DVT Prophylaxis: Diet: Carb Controlled Dispo: Home after diuresis, possible cardiac MRI for myocarditis evaluation This plan was discussed with Timothy Marks MD on rounds. Elisa Barrera MD PGY2 - Internal Medicine [facility] Work Phone: [phone]) 940-450711-19-2022 Note* Nursing Notes - Sheridan Brock RN - 04/04/2022 12:30 PM EST Patient admitted to [facility] for NSTEMI post LAD stent. Patient alert & oriented x4. No complaints of pain/SOB at this time. VSS, SR w/ freq PVC's on telemetry. Orders reviewed. Resident notified of patient arrival. Admissions questions asked and completed to the best ability of the patient at this time. ? On admission to , from [facility] a dual RN initial assessment of skin condition was performed by Sheridan Brock RN and Kathy Warner RN Skin Assessment: Skin not within defined limits. - Wound(s) identified: Yes Chau Score: 18 LDA Added: No. Previous LDA in chart. Sheridan Brock RN [facility]11-19-2022 Note* Nursing Notes - Gosia Dunbar RN - 04/04/2022 12:03 PM EST Patient will be transferred to [facility] from label folder. Report called to Anna BISHOP.Gosia Dunbar RN [facility]11-19-2022 Consult note* Chayito Babb MD - 04/04/2022 11:16 AM ESTAssociated Order(s): IP CONSULT TO DERMATOLOGY DERMATOLOGY CONSULT Assessment and Plan 1. Tinea corporis Clinical exam very consistent with fungal process, despite negative UDAY prep. As isolated to one small lesion on shoulder, plan to just treat topically for 4 weeks. - Recommend starting topical terbinafine 1% cream BID x4 weeks. Apply cream to affected area and atleast 2 cm outside border of lesion - If additional lesions appear, may consider oral anti-fungal, but not necessary at this time with just the one lesion Dermatology will sign off at this time, however, please don't hesitate to contact us with any questions via the derm on-call pager: [phone] Chayito Babb MD/PhD Dermatology Resident, PGY-[address] Samuels, Dermatology Attending Physician. Consult Request concern for ringworm right shoulder Requesting Service: Heart failure service History of Present Illness. Kaylee Tariq is a 41 y.o. female with PMH of Trisomy 21, DM type 1 w/ inslin pump, hypothyroidism admitted 04/03 as a transfer from [facility] with new EF 15%. Dermatology is consulted for lesion on right shoulder concerning for ringworm. Patient reports she does not know when this spot started but that it has been very itchy and definitely bothers her. Unable to get a hold of Mom today. Patient denies any other spots of concern on her skin. Past Medical History Past Medical History: Diagnosis Date Acquired hypothyroidism Insulin pump 02/2022 Omnipod 5 Type 1 diabetes mellitus (T1D) Allergies (Medicines reviewed in list at bottom). Kaylee Tariq is has no allergies on file. Family History: No family history on file. Social history: Social History Socioeconomic History Marital status: Single Review of Systems Full ROS reviewed in H&P for this admission Additional dermatologic ROS items see H&P. + itching Physical Exam Vitals: Temp: [97.7 F (36.5 C)-98.1 F (36.7 C)] 97.7 F (36.5 C) Pulse (Heart Rate): [30-96] 30 Resp Rate: [16-18] 18 BP: (99-108)/(66-76) 100/70 O2 Sat (%): [91 %-94 %] 93 % Weight: [77.2 kg (170 lb 1.6 oz)-77.2 kg (170 lb 3.1 oz)] 77.2 kg (170 lb 3.1 oz) Current BMI: There is no height or weight on file to calculate BMI. Physical Exam: General: Alert, oriented, NAD Areas examined: [x]Scalp [x]Face []Lips []Eyelids, conjunctiva [x]Neck [x]Back [x]Chest []Abd []Buttocks []Genitalia [x]R arm [x]L arm [x]R leg [x]L leg []Digits, nails []Oropharynx []Lymph []Periph Vascular Skin exam revealed: - one annular pink scaly plaque with raised rim with an active border and central clearing on rightshoulder - no other lesions noted on scalp, neck, trunk or other extremities Relevant Labs/Imaging/Pathology UDAY prep performed with sample collected from right shoulder lesion. Hyphal elements identified on UDAY prep: No Lab Results Component Value Date WBC 4.69 04/04/2022 HGB 11.4 04/04/2022 HCT 34.6 (L) 04/04/2022 PLATELET 253 04/04/2022 MCV 101.2 (H) 04/04/2022 Lab Results Component Value Date SODIUM 134 (L) 04/04/2022 POTASSIUM 4.4 04/04/2022 CHLORIDE 101 04/04/2022 CO2 24 04/04/2022 BUN 13 04/04/2022 CREATSERUM 0.69 04/04/2022 GLUCOSE 327 (H) 04/04/2022 Lab Results Component Value Date ALT 31 04/03/2022 AST 40 (H) 04/03/2022 ALKPHOS 104 04/03/2022 BILITOTAL 0.5 04/03/2022 BILIDIRECT 0.2 04/03/2022 Current Medications Current Facility-Administered Medications Medication Dose Route Frequency Provider Last Rate Last Admin alum/mag hydrox.-simethicone oral suspension 30 mL 30 mL Oral Q6H PRN Ariadne Crane MD ammonium lactate (LAC-HYDRIN) 12 % lotion 1 Application 1 Application Topical BID JOAQUIN SiddiquiAPPAREL DESIGNER 1 Application at 04/04/22 1001 aspirin chewable tablet 81 mg 81 mg Oral Daily ABRAN Bello 81 mg at 04/04/22 0956 benzocaine-menthol (CEPACOL) 15-3.6 MG per lozenge 1 lozenge 1 lozenge Oral Q2H PRN Ariadne Crane MD insulin lispro (HumaLOG) injection Subcutaneous 4x daily w/meals, HS Diane Fraga MD, PhD 4 Units at 04/04/22 0959 And insulin lispro (HumaLOG) injection Subcutaneous PRN Diane Fraga MD, PhD And dextrose 50% injection 7.5-25 g 7.5-25 g Intravenous As directed PRN Diane Fraga MD, PhD And glucose (GLUTOSE) 40 % oral gel 1-2 Tube 1-2 Tube Oral As directed PRN Diane Fraga MD, PhD Enoxaparin Sodium (LOVENOX) injection 40 mg 40 mg Subcutaneous Daily Cynthiaiicy Maxwell MD 40 mg at 04/04/22 0955 escitalopram (LEXAPRO) tablet 5 mg 5 mg Oral Daily JOAQUIN Siddiqui CNP 5 mg at 04/04/22 0956 fentaNYL (SUBLIMAZE) injection Intravenous PRN Kenneth Foster MD, PhD 25 mcg at 04/04/22 1056 furOSEmide (LASIX) injection 80 mg 80 mg Intravenous BID AC Mariely Ribeiro APRN-TELLY insulin glargine injection 10 Units 10 Units Subcutaneous Daily Ariadne Galo APRN-APPAREL DESIGNER 10 Units at 04/04/22 0955 levothyroxine (SYNTHROID) tablet 50 mcg 50 mcg Oral Before BKF ABRAN Siddiqui 50 mcg at 04/04/22 0600 lidocaine 2 % injection Infiltration PRN Sekou Johnson MD 2 mL at 04/04/22 1058 losartan (COZAAR) tablet 12.5 mg 12.5 mg Oral Q12H Mariely Ribeiro APRN-APPAREL DESIGNER 12.5 mg at 04/04/22 0956 melatonin tablet 6 mg 6 mg Oral QHS PRN Ariadne Crane MD midazolam (VERSED) injection Intravenous PRN Kenneth Foster MD, PhD 1 mg at 04/04/22 1056 nitroGLYCERIN in D5W 200mcg/5mL syringe SOLN Injection PRN Sekou Johnson MD 100 mcg at 04/04/22 1105 ondansetron (ZOFRAN-ODT) disintegrating tablet 4 mg 4 mg Oral Q8H PRN Ariadne Galo APRN-APPAREL DESIGNER polyethylene glycol (MIRALAX) packet 17 g 17 g Oral Daily PRN Ariadne Crane MD Polyvinyl Alcohol-Povidone PF (REFRESH) ophthalmic solution 1 drop 1 drop Both Eyes Q1H PRN Ariadne Crane MD sodium chloride 0.9% IV solution 250 mL 250 mL Intravenous PRN Ariadne Crane MD verapamil (ISOPTIN) injection Injection PRN Sekou Johnson MD 1 mg at 04/04/22 1105 Associated attestation - Jefry Samuels MD, MSBS - 04/05/2022 2:37 PM EST I, Dr. Jefry Samuels, saw and personally examined the patient on 04/05/2022 with . I discussed the findings and therapeutic plan with Dr. Babb. Tinea Corporis was pertinent to this encounter visit. I agree with the history, physical examination, and medical decisions as outlined. Right shoulder: well demarcated erythematous plaque with red rolled borders, advancing scale with central clearing: Recommend topical terbinafine 1% cream to be applied twice daily for 4 weeks. If there was a procedure performed at this visit, I attest that I participated in the planning and was present for the procedure. Jefry Samuels MD MSBS [facility] Division of Dermatology [facility] Work Phone: [phone]) 392-861011-19-2022 Consult note* Chayito Babb MD - 04/04/2022 11:16 AM ESTAssociated Order(s): IP CONSULT TO DERMATOLOGY DERMATOLOGY CONSULT Assessment and Plan 1. Tinea corporis Clinical exam very consistent with fungal process, despite negative UDAY prep. As isolated to one small lesion on shoulder, plan to just treat topically for 4 weeks. - Recommend starting topical terbinafine 1% cream BID x4 weeks. Apply cream to affected area and atleast 2 cm outside border of lesion - If additional lesions appear, may consider oral anti-fungal, but not necessary at this time with just the one lesion Dermatology will sign off at this time, however, please don't hesitate to contact us with any questions via the derm on-call pager: [phone] Chayito Babb MD/PhD Dermatology Resident, PGY-[address] Samuels, Dermatology Attending Physician. Consult Request concern for ringworm right shoulder Requesting Service: Heart failure service History of Present Illness. Kaylee Tariq is a 41 y.o. female with PMH of Trisomy 21, DM type 1 w/ inslin pump, hypothyroidism admitted 04/03 as a transfer from [facility] with new EF 15%. Dermatology is consulted for lesion on right shoulder concerning for ringworm. Patient reports she does not know when this spot started but that it has been very itchy and definitely bothers her. Unable to get a hold of Mom today. Patient denies any other spots of concern on her skin. Past Medical History Past Medical History: Diagnosis Date Acquired hypothyroidism Insulin pump 02/2022 Omnipod 5 Type 1 diabetes mellitus (T1D) Allergies (Medicines reviewed in list at bottom). Kaylee Tariq is has no allergies on file. Family History: No family history on file. Social history: Social History Socioeconomic History Marital status: Single Review of Systems Full ROS reviewed in H&P for this admission Additional dermatologic ROS items see H&P. + itching Physical Exam Vitals: Temp: [97.7 F (36.5 C)-98.1 F (36.7 C)] 97.7 F (36.5 C) Pulse (Heart Rate): [30-96] 30 Resp Rate: [16-18] 18 BP: (99-108)/(66-76) 100/70 O2 Sat (%): [91 %-94 %] 93 % Weight: [77.2 kg (170 lb 1.6 oz)-77.2 kg (170 lb 3.1 oz)] 77.2 kg (170 lb 3.1 oz) Current BMI: There is no height or weight on file to calculate BMI. Physical Exam: General: Alert, oriented, NAD Areas examined: [x]Scalp [x]Face []Lips []Eyelids, conjunctiva [x]Neck [x]Back [x]Chest []Abd []Buttocks []Genitalia [x]R arm [x]L arm [x]R leg [x]L leg []Digits, nails []Oropharynx []Lymph []Periph Vascular Skin exam revealed: - one annular pink scaly plaque with raised rim with an active border and central clearing on rightshoulder - no other lesions noted on scalp, neck, trunk or other extremities Relevant Labs/Imaging/Pathology UDAY prep performed with sample collected from right shoulder lesion. Hyphal elements identified on UDAY prep: No Lab Results Component Value Date WBC 4.69 04/04/2022 HGB 11.4 04/04/2022 HCT 34.6 (L) 04/04/2022 PLATELET 253 04/04/2022 MCV 101.2 (H) 04/04/2022 Lab Results Component Value Date SODIUM 134 (L) 04/04/2022 POTASSIUM 4.4 04/04/2022 CHLORIDE 101 04/04/2022 CO2 24 04/04/2022 BUN 13 04/04/2022 CREATSERUM 0.69 04/04/2022 GLUCOSE 327 (H) 04/04/2022 Lab Results Component Value Date ALT 31 04/03/2022 AST 40 (H) 04/03/2022 ALKPHOS 104 04/03/2022 BILITOTAL 0.5 04/03/2022 BILIDIRECT 0.2 04/03/2022 Current Medications Current Facility-Administered Medications Medication Dose Route Frequency Provider Last Rate Last Admin alum/mag hydrox.-simethicone oral suspension 30 mL 30 mL Oral Q6H PRN Ariadne Crane MD ammonium lactate (LAC-HYDRIN) 12 % lotion 1 Application 1 Application Topical BID ABRAN Siddiqui 1 Application at 04/04/22 1001 aspirin chewable tablet 81 mg 81 mg Oral Daily ABRAN Bello 81 mg at 04/04/22 0956 benzocaine-menthol (CEPACOL) 15-3.6 MG per lozenge 1 lozenge 1 lozenge Oral Q2H PRN Ariadne Crane MD insulin lispro (HumaLOG) injection Subcutaneous 4x daily w/meals, HS Diane Fraga MD, PhD 4 Units at 04/04/22 0959 And insulin lispro (HumaLOG) injection Subcutaneous PRN Diane Fraga MD, PhD And dextrose 50% injection 7.5-25 g 7.5-25 g Intravenous As directed PRN Diane Fraga MD, PhD And glucose (GLUTOSE) 40 % oral gel 1-2 Tube 1-2 Tube Oral As directed PRN Diane Fraga MD, PhD Enoxaparin Sodium (LOVENOX) injection 40 mg 40 mg Subcutaneous Daily Elizabeth Maxwell MD 40 mg at 04/04/22 0955 escitalopram (LEXAPRO) tablet 5 mg 5 mg Oral Daily Ariadne Galo APRN- APPAREL DESIGNER 5 mg at 04/04/22 0956 fentaNYL (SUBLIMAZE) injection Intravenous PRN Kenneth Foster MD, PhD 25 mcg at 04/04/22 1056 furOSEmide (LASIX) injection 80 mg 80 mg Intravenous BID AC Mariely Ribeiro, VALVE FITTER-APPAREL DESIGNER insulin glargine injection 10 Units 10 Units Subcutaneous Daily Ariadne Galo APRN-APPAREL DESIGNER 10 Units at 04/04/22 0955 levothyroxine (SYNTHROID) tablet 50 mcg 50 mcg Oral Before BKF Airadne Galo APRN-APPAREL DESIGNER 50 mcg at 04/04/22 0600 lidocaine 2 % injection Infiltration PRN Sekou Johnson MD 2 mL at 04/04/22 1058 losartan (COZAAR) tablet 12.5 mg 12.5 mg Oral Q12H Mariely Ribeiro, VALVE FITTER-APPAREL DESIGNER 12.5 mg at 04/04/22 0956 melatonin tablet 6 mg 6 mg Oral QHS PRN Ariadne Crane MD midazolam (VERSED) injection Intravenous PRN Kenneth Foster MD, PhD 1 mg at 04/04/22 1056 nitroGLYCERIN in D5W 200mcg/5mL syringe SOLN Injection PRN Sekou Johnson MD 100 mcg at 04/04/22 1105 ondansetron (ZOFRAN-ODT) disintegrating tablet 4 mg 4 mg Oral Q8H PRN Ariadne Galo, VALVE FITTER-APPAREL DESIGNER polyethylene glycol (MIRALAX) packet 17 g 17 g Oral Daily PRN Ariadne Crane MD Polyvinyl Alcohol-Povidone PF (REFRESH) ophthalmic solution 1 drop 1 drop Both Eyes Q1H PRN Ariadne Crane MD sodium chloride 0.9% IV solution 250 mL 250 mL Intravenous PRN Ariadne Crane MD verapamil (ISOPTIN) injection Injection PRN Sekou Johnson MD 1 mg at 04/04/22 1105 Associated attestation - Jefry Samuels MD, MSBS - 04/05/2022 2:37 PM EST I, Dr. Jefry Samuels, saw and personally examined the patient on 04/05/2022 with . I discussed the findings and therapeutic plan with Dr. Babb. Tinea Corporis was pertinent to this encounter visit. I agree with the history, physical examination, and medical decisions as outlined. Right shoulder: well demarcated erythematous plaque with red rolled borders, advancing scale with central clearing: Recommend topical terbinafine 1% cream to be applied twice daily for 4 weeks. If there was a procedure performed at this visit, I attest that I participated in the planning and was present for the procedure. Jefry Samuels MD MSBS [facility] Division of Dermatology [facility] * Diane Fraga MD, PhD - 04/04/2022 9:16 AM ESTAssociated Order(s): IP CONSULT TO ENDOCRINOLOGY - DIABETES Images from the original note were not included. [facility] Inpatient Diabetes Consult - Team 2 *If paging after 6pm please check on [employer], under IM Consult Serv, Endocrine/Diabetes , and call the person listed Diabetes Att Day * Impression: Uncontrolled Type 1 Diabetes Mellitus (T1D) admitted with acute onset new Heart Failure DM microvascular complications: peripheral neuropathy A1c on 03/10/2022: 7.6% Initiate basal-bolus regimen today. We will not resume insulin pump until at least after Cardiology evaluation is completed as it wouldlikely have to be removed for some of the testing. Diabetes Inpatient Plan: Basal: Insulin glargine: 10 units qam -> q12h Prandial: Initiate with Insulin lispro: 1 unit per 10 gram carbs qachs & prn Correction: Insulin lispro: 1 unit(s) per every 50 mg/dL above 150 mg/dL qachs Note: Patient has T1D so does not need a carb control diet Diabetes Education: none today Diabetes Health Maintenance BP goal is < 140/90 LDL cholesterol goal is < 100 mg/dL. Needs statin therapy based on duration of disease. Reminded to complete annual Qjlains-pt-Zlidxmtyki Ratio and eye, dental & foot exams Review vaccination history. Diabetes Discharge Planning: We will rec discharge insulin doses based on insulin dose at day of discharge Please call on day of d/c for definitive recs. She will need a prescription for glucagon. Please order Baqsimi Follow up needed: (note if an internal consult is requested then please include this specific wording in the consult request) o TBD Thank you for allowing us to participate in your patients care. If you have questions please check on [employer], under IM Consult Serv, Endocrine/Diabetes , and call the person listed for Team 2 as directed. We will follow glucose trends with you and make recommendations as indicated. CC: uncontrolled hyperglycemia and insulin pump Date of admission: 04/03/2022 Admission diagnosis: Heart Failure, R/O Viral Myocarditits History of Present Illness: Kaylee Tariq is a 41 y.o. year old female with Type 1 Diabetes Mellitus (T1D) diagnosed age 15 who is seen in consultation at the request of Elizabeth Maxwell MD for assistance with evaluation of hyperglycemia and to make treatment recommendations. She was interviewed at her bedside in [place]. She is transferred from outside hospital for evaluation of new onset Class 4 Heart Failure. Her T1D is typically managed with an Omnipod pump + Dexcom CGM. She is in process of upgrading to the OP5 HCL System. However, she has not used her pump since she was asked at [facility] on Mar 29, 2022 to remove the pump. On arrival to [facility], her glucose was 238, bicarb 25, Cr 0.86, BHB nd, and WBC 4.44. She was eating but now is NPO to go to label folder. We have initiated basal bolus insulin this morning, based on weight + historical pump settings. When her mother is here we will speak with her about getting her pump and CGM data to review. Current insulin orders: Basal: Insulin glargine 10 units daily Prandial: None Correction: 1 unit per 50 mg/dl above 150 mg/dl Insulin dosing over the last 24 hours: Glargine: None Lispro: 2 units at 23:37 Current Diet Orders Procedures DIET CARDIAC - VERY LOW SODIUM Fluid Restriction 2000mL (1000mL Nursing, 1000mL Nutrition) Standing Status: Standing Number of Occurrences: 1 Order Specific Question: Additional Modifier: Answer: Fluid Restriction 2000mL (1000mL Nursing, 1000mL Nutrition) Glucose Review: Diabetes HistoryNo results found for: HGBA1C Diagnosis (aprox date): Age 15 ( 1993) Family History: unknown Outpatient Clinic: Dr. Jonah Hemphill, [place], [place] Home regimen: Humalog insulin per Omnipod pump Upload not available Noninsulin injectables: none Orals: none BP: none Heart Failure: none Lipids: none Vitamin D none Thyroid Levothyroxine 50 mcg daily Diabetes Complications: none known and peripheral neuropathy ACR normal in 2020 Date of most recent dilated eye exam: unknown DKA occurrences: unknown Home blood glucoses: glucose meter: Dexcom Immunization History Administered Date(s) Administered COVID-19 vaccine, mRNA, Moderna, 100 mcg/0.5 mL 07/04/2020, 07/31/2020, 05/02/2021 Pneumococcal Polysac 23-Valent Vaccine 12/19/2008 Social History Tobacco Use Smoking Status Not on file Smokeless Tobacco Not on file Social History Substance and Sexual Activity Alcohol Use None Past Medical History: Diagnosis Date Acquired hypothyroidism Insulin pump 02/2022 Omnipod 5 Type 1 diabetes mellitus (T1D) Past Surgical History: Procedure Laterality Date RELEASE TRIGGER FINGER 2013 No family history on file.HOSPITAL MEDS: acetaminophen ammonium lactate 1 Application Topical BID aspirin 81 mg Oral Daily enoxaparin 40 mg Subcutaneous Daily escitalopram 5 mg Oral Daily furosemide (LASIX) injection/IVPB 80 mg Intravenous BID AC insulin glargine injection 10 Units Subcutaneous Daily insulin lispro Subcutaneous 4x daily w/meals, HS levothyroxine 50 mcg Oral Before BKF ticagrelor 90 mg Oral Q12H ALLERGIES: has no allergies on file. INFUSIONS:The past family, medical, and social history were otherwise reviewed and documented in the electronic record system. ROS: Pertinent items are noted in the HPI. She denies symptoms of hypoglycemia, polyuria/polydipsiaor blurry vision. Constitutional: Pt denies confusion, changes in mental status, or fatigue. moderate weight change Skin: Negative for lesions, rashes, sores, discoloration. HENT: Negative for sore throat, dysphagia, odynophagia, dry mouth. Eyes: Negative for double vision, blurring, tearing, loss of vision Cardiovascular: Negative for palpitations, chest pain, claudication. Respiratory: Negative for SOB, LEMONS Gastrointestinal: Negative for nausea, vomiting, diarrhea, constipation. Genitourinary: Negative for bladder incontinence, dysuria, hematuria. No nocturia Physical Exam General/Constitutional: female, who looks her stated age of 41 y.o.. No acute distress. Vital Signs: BP 101/73 (BP Location: Left arm, BP Position: Lying) Pulse 52 Temp 97.7 F (36.5 C) (Oral) Resp 18 Wt 77.2 kg (170 lb 3.1 oz) Comment: standing SpO2 93% , Wt Readings from Last 3 Encounters: 04/04/22 77.2 kg (170 lb 3.1 oz) There is no height or weight on file to calculate BMI. O2 Sat (%): [91 %-94 %] 93 % O2 Device: room air HEENT: Head: Normocephalic and atraumatic. Eyes: Sclerae and conjunctiva are clear. Airway is normal. Neck: Supple, non-tender, with no lymphadenopathy. No carotid bruits, no acanthosis nigricans. Cardiac: regular rhythm, normal rate. Normal S1, S2. No murmurs, rubs or gallops. Pulmonary/Chest: Respirations even and unlabored with normal respiratory effort. Abdominal: Soft, non-tender, non-distended, normoactive bowel sounds. No organomegaly. No lipohypertrophy/lipodystrophy. Musculoskeletal: No bony deformities, normal muscle mass and tone Extremities: No cyanosis or clubbing. (+) peripheral edema. Peripheral Vascular Exam: 2+ dorsalis pedis pulses. Neurological: Conscious, alert and interactive. Sensation to a 10 gram monofilament is intact belowthe ankles. Skin: Skin is warm and dry. No ulcers or lesions on the feet and nails are intact. Psychiatric: Appropriate mood and affect for her clinical situation. Procedure / Imaging / Lab Data: Pertinent procedure/imaging/lab data was reviewed: No results found for: HGBA1C No results found for: CHOLESTEROL, TRIG, HDL, LDLCALC, LDLDIRECT Lab Results Component Value Date SODIUM 134 (L) 04/04/2022 POTASSIUM 4.4 04/04/2022 CHLORIDE 101 04/04/2022 CO2 24 04/04/2022 BUN 13 04/04/2022 CREATSERUM 0.69 04/04/2022 GLUCOSE 327 (H) 04/04/2022 No results found for: SPGRVTYUR, SPECGRAVUR, SPECGRAVUR, GLUCOSEURINE, BILIRUBINURI, BILIRUBINURI, KETONESURINE, BLOODURINE, PHURINE, NITRITEURINE, NITRITESURIN, LEUKOCESTUR, WBCURINE, RBCURINE, BACTERIAURIN No results found for: TSH, ZGM32GMF, YNO68UOF, TSHBASELINE, TSHULTRASEN, T3FREE, [id number], J9JQMJS, L3KFQANB, T4FREE, TPOAB No results found for: CREATURINE, MICROALBUMIN, MICALBCREAT Lab Results Component Value Date ALT 31 04/03/2022 No results found for: PREALBUMIN ECHO: No results found for this or any previous visit. CATH: No results found for this or any previous visit from the past 3650 days. No results found for: [id number] No results found for: [id number] documented in this encounterP[facility]11-[facility] Note* Plan of Care - Sekou Johnson MD - 04/04/2022 10:33 AM EST Discussed case with heart failure team. Concern for large NSTEMI with severely elevated troponin and severely reduced LV ejection fraction. Attempted to contact next of kin mother for consent howeverunavailable on three attempts. Given clinical situation will deem emergent and proceed with left heart catheterization and ad hoc PCI. Will obtain assent from patient and full consent if deemed to have a good grasp of the risks, procedure, and alternatives. [facility] Work Phone: [phone] NoteAcute Coronary Syndrome (ACS): Initial Evaluation and Management: [email or web address] [facility]11-19-2022 Consult note* Diane Fraga MD, PhD - 04/04/2022 9:16 AM ESTAssociated Order(s): IP CONSULT TO ENDOCRINOLOGY - DIABETES Images from the original note were not included. [facility] Inpatient Diabetes Consult - Team 2 *If paging after 6pm please check on [employer], under IM Consult Serv, Endocrine/Diabetes , and call the person listed Diabetes Att Day * Impression: Uncontrolled Type 1 Diabetes Mellitus (T1D) admitted with acute onset new Heart Failure DM microvascular complications: peripheral neuropathy A1c on 03/10/2022: 7.6% Initiate basal-bolus regimen today. We will not resume insulin pump until at least after Cardiology evaluation is completed as it wouldlikely have to be removed for some of the testing. Diabetes Inpatient Plan: Basal: Insulin glargine: 10 units qam -> q12h Prandial: Initiate with Insulin lispro: 1 unit per 10 gram carbs qachs & prn Correction: Insulin lispro: 1 unit(s) per every 50 mg/dL above 150 mg/dL qachs Note: Patient has T1D so does not need a carb control diet Diabetes Education: none today Diabetes Health Maintenance BP goal is < 140/90 LDL cholesterol goal is < 100 mg/dL. Needs statin therapy based on duration of disease. Reminded to complete annual [id number] Ratio and eye, dental & foot exams Review vaccination history. Diabetes Discharge Planning: We will rec discharge insulin doses based on insulin dose at day of discharge Please call on day of d/c for definitive recs. She will need a prescription for glucagon. Please order Baqsimi Follow up needed: (note if an internal consult is requested then please include this specific wording in the consult request) o TBD Thank you for allowing us to participate in your patients care. If you have questions please check on WebExchange, under IM Consult Serv, Endocrine/Diabetes , and call the person listed for Team 2 as directed. We will follow glucose trends with you and make recommendations as indicated. CC: uncontrolled hyperglycemia and insulin pump Date of admission: 04/03/2022 Admission diagnosis: Heart Failure, R/O Viral Myocarditits History of Present Illness: Kaylee Tariq is a 41 y.o. year old female with Type 1 Diabetes Mellitus (T1D) diagnosed age 15 who is seen in consultation at the request of Elizabeth Maxwell MD for assistance with evaluation of hyperglycemia and to make treatment recommendations. She was interviewed at her bedside in [place]. She is transferred from outside hospital for evaluation of new onset Class 4 Heart Failure. Her T1D is typically managed with an Omnipod pump + Dexcom CGM. She is in process of upgrading to the OP5 HCL System. However, she has not used her pump since she was asked at [facility] on Mar 29, 2022 to remove the pump. On arrival to [facility], her glucose was 238, bicarb 25, Cr 0.86, BHB nd, and WBC 4.44. She was eating but now is NPO to go to label folder. We have initiated basal bolus insulin this morning, based on weight + historical pump settings. When her mother is here we will speak with her about getting her pump and CGM data to review. Current insulin orders: Basal: Insulin glargine 10 units daily Prandial: None Correction: 1 unit per 50 mg/dl above 150 mg/dl Insulin dosing over the last 24 hours: Glargine: None Lispro: 2 units at 23:37 Current Diet Orders Procedures DIET CARDIAC - VERY LOW SODIUM Fluid Restriction 2000mL (1000mL Nursing, 1000mL Nutrition) Standing Status: Standing Number of Occurrences: 1 Order Specific Question: Additional Modifier: Answer: Fluid Restriction 2000mL (1000mL Nursing, 1000mL Nutrition) Glucose Review: Diabetes HistoryNo results found for: HGBA1C Diagnosis (aprox date): Age 15 ( 1993) Family History: unknown Outpatient Clinic: Dr. Jonah Hemphill, [place], [place] Home regimen: Humalog insulin per Omnipod pump Upload not available Noninsulin injectables: none Orals: none BP: none Heart Failure: none Lipids: none Vitamin D none Thyroid Levothyroxine 50 mcg daily Diabetes Complications: none known and peripheral neuropathy ACR normal in 2020 Date of most recent dilated eye exam: unknown DKA occurrences: unknown Home blood glucoses: glucose meter: Dexcom Immunization History Administered Date(s) Administered COVID-19 vaccine, mRNA, Moderna, 100 mcg/0.5 mL 07/04/2020, 07/31/2020, 05/02/2021 Pneumococcal Polysac 23-Valent Vaccine 12/19/2008 Social History Tobacco Use Smoking Status Not on file Smokeless Tobacco Not on file Social History Substance and Sexual Activity Alcohol Use None Past Medical History: Diagnosis Date Acquired hypothyroidism Insulin pump 02/2022 Omnipod 5 Type 1 diabetes mellitus (T1D) Past Surgical History: Procedure Laterality Date RELEASE TRIGGER FINGER 2013 No family history on file.HOSPITAL MEDS: acetaminophen ammonium lactate 1 Application Topical BID aspirin 81 mg Oral Daily enoxaparin 40 mg Subcutaneous Daily escitalopram 5 mg Oral Daily furosemide (LASIX) injection/IVPB 80 mg Intravenous BID AC insulin glargine injection 10 Units Subcutaneous Daily insulin lispro Subcutaneous 4x daily w/meals, HS levothyroxine 50 mcg Oral Before BKF ticagrelor 90 mg Oral Q12H ALLERGIES: has no allergies on file. INFUSIONS:The past family, medical, and social history were otherwise reviewed and documented in the electronic record system. ROS: Pertinent items are noted in the HPI. She denies symptoms of hypoglycemia, polyuria/polydipsiaor blurry vision. Constitutional: Pt denies confusion, changes in mental status, or fatigue. moderate weight change Skin: Negative for lesions, rashes, sores, discoloration. HENT: Negative for sore throat, dysphagia, odynophagia, dry mouth. Eyes: Negative for double vision, blurring, tearing, loss of vision Cardiovascular: Negative for palpitations, chest pain, claudication. Respiratory: Negative for SOB, LEMONS Gastrointestinal: Negative for nausea, vomiting, diarrhea, constipation. Genitourinary: Negative for bladder incontinence, dysuria, hematuria. No nocturia Physical Exam General/Constitutional: female, who looks her stated age of 41 y.o.. No acute distress. Vital Signs: BP 101/73 (BP Location: Left arm, BP Position: Lying) Pulse 52 Temp 97.7 F (36.5 C) (Oral) Resp 18 Wt 77.2 kg (170 lb 3.1 oz) Comment: standing SpO2 93% , Wt Readings from Last 3 Encounters: 04/04/22 77.2 kg (170 lb 3.1 oz) There is no height or weight on file to calculate BMI. O2 Sat (%): [91 %-94 %] 93 % O2 Device: room air HEENT: Head: Normocephalic and atraumatic. Eyes: Sclerae and conjunctiva are clear. Airway is normal. Neck: Supple, non-tender, with no lymphadenopathy. No carotid bruits, no acanthosis nigricans. Cardiac: regular rhythm, normal rate. Normal S1, S2. No murmurs, rubs or gallops. Pulmonary/Chest: Respirations even and unlabored with normal respiratory effort. Abdominal: Soft, non-tender, non-distended, normoactive bowel sounds. No organomegaly. No lipohypertrophy/lipodystrophy. Musculoskeletal: No bony deformities, normal muscle mass and tone Extremities: No cyanosis or clubbing. (+) peripheral edema. Peripheral Vascular Exam: 2+ dorsalis pedis pulses. Neurological: Conscious, alert and interactive. Sensation to a 10 gram monofilament is intact belowthe ankles. Skin: Skin is warm and dry. No ulcers or lesions on the feet and nails are intact. Psychiatric: Appropriate mood and affect for her clinical situation. Procedure / Imaging / Lab Data: Pertinent procedure/imaging/lab data was reviewed: No results found for: HGBA1C No results found for: CHOLESTEROL, TRIG, HDL, LDLCALC, LDLDIRECT Lab Results Component Value Date SODIUM 134 (L) 04/04/2022 POTASSIUM 4.4 04/04/2022 CHLORIDE 101 04/04/2022 CO2 24 04/04/2022 BUN 13 04/04/2022 CREATSERUM 0.69 04/04/2022 GLUCOSE 327 (H) 04/04/2022 No results found for: SPGRVTYUR, SPECGRAVUR, SPECGRAVUR, GLUCOSEURINE, BILIRUBINURI, BILIRUBINURI, KETONESURINE, BLOODURINE, PHURINE, NITRITEURINE, NITRITESURIN, LEUKOCESTUR, WBCURINE, RBCURINE, BACTERIAURIN No results found for: TSH, MPM93PYD, TMH11RNS, TSHBASELINE, TSHULTRASEN, T3FREE, K5SHUCRBU, Q0LYJZM, D5JVTGDI, T4FREE, TPOAB No results found for: CREATURINE, MICROALBUMIN, MICALBCREAT Lab Results Component Value Date ALT 31 04/03/2022 No results found for: PREALBUMIN ECHO: No results found for this or any previous visit. CATH: No results found for this or any previous visit from the past 3650 days. No results found for: [id number] No results found for: [id number] [facility]11-18-2022 Note* Certification - Ariadne Bolanos ABRAN Galo - 04/03/2022 11:13 PM EST I certify that this patient requires inpatient services at this time. I anticipate the expected length of stay will include at least two midnights. Inpatient services are due to the following medicalconcerns acute systolic heart failure. Plans for post hospitalization care will be discharge to home. La Nena Wolff ABRAN Galo HF2/Advanced Heart Failure Phone: [phone] [facility]11-18-2022 History and physical note* Ariadne Bolanos ABRAN Galo - 04/03/2022 10:02 PM EST Heart Failure 2/Advanced Heart Failure HISTORY AND PHYSICAL IDENTIFYING INFORMATION PATIENT: Kaylee Tariq ADMIT DATE: 04/03/2022 TIME OF EVALUATION: 04/03/2022 10:02 PM HISTORIAN: EMR (patient poor historian, unable to contact mother) Plan of Care: - IV Lasix 40 mg BID - consult Endo CHIEF COMPLAINT cough HISTORY OF PRESENT ILLNESS Kaylee Tariq is a 41 y.o. female with PMH of Trisomy 21, DM type 1 w/inslin pump, hypothyroidism who presents today as a transfer from [facility] with new EF 15%. Pt is poor historian giving limited answers to questions. Unable to contact mother at time of exam.Review of records reveals she presented to [facility] on 03/28 with fevers and encephalopathy associated with nonproductive cough for 1 week. In the ED she was given 2 L IV fluids with improvement in lethargy. CBC and Chem were unremarkable. Lactate was elevated at 2.5. Infectious work up with UA, blood cultures, Covid and influenza were negative. Continued work up during admission included an Echo which revealed EF 15%. Previous Echo 09/2020 EF was 65%. She was started on IV Lasix 40 mg. Insulin pump was discontinued on 03/29 at [facility]. Currently covered with Lantus and sliding scale insulin. Of note, [facility] for VSD and syncope. 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 Syncope was thought to be vasovagal in origin. She was prescribed midodrine and encouraged to liberalize fluid intake. She was transferred to [facility] for further evaluation and medication optimization. PAST MEDICAL, SURGICAL, FAMILY, and SOCIAL HISTORY No past medical history on file. No past surgical history on file. No family history on file. Social History Socioeconomic History Marital status: Single MEDICATIONS None I have personally reviewed the medication list, verified it, and updated it via the Medication Reconciliation Navigator: [ ]Verbally with the patient []With the patient's personal medication list []Verbally with the patient's family member [ x ]Verbally with the facility's MAR []With the patient's Pharmacy ALLERGIES: She has no allergies on file. REVIEW OF SYSTEMS Review of Systems Review of Systems Constitutional: Negative. Cardiovascular: Positive for dyspnea on exertion and orthopnea. Negative for leg swelling and paroxysmal nocturnal dyspnea. Respiratory: Positive for cough. Negative for sputum production and wheezing. Skin: Positive for itching (red patch Rt shoulder). Musculoskeletal: Negative. Gastrointestinal: Positive for bloating and nausea. Negative for abdominal pain and vomiting. Genitourinary: Negative. Neurological: Negative. Psychiatric/Behavioral: Negative. PHYSICAL EXAM Temp: [97.9 F (36.6 C)] Pulse (Heart Rate): [96] BP: (99)/(66) Resp Rate: [18] O2 Sat (%): [94 %] MEWS Score (AutoCalculated): [0-2] There is no height or weight on file to calculate BMI. Physical Exam Constitutional: No distress. She appears acutely ill. Eyes: Conjunctivae are normal. Neck: JVD (high neck) present. Cardiovascular: Normal rate, regular rhythm, S1 normal and S2 normal. Pulses: Radial pulses are 1+ on the right side and 1+ on the left side. Pulmonary/Chest: Effort normal. She exhibits no tenderness. diminished RLL Abdominal: Soft. Bowel sounds are normal. Musculoskeletal: General: Edema (trace) present. Normal range of motion. Cervical back: Normal range of motion and neck supple. Neurological: She is alert. She has normal motor skills. She exhibits a cognitive deficit. Skin: Skin is warm and dry. Round, red patch rt shoulder LABS AND IMAGING All recent labs and imaging personally review: No results found for: LDH Recent Labs 04/03/222034 GLUCOSE 238* No results for input(s): BNP in the last 72 hours. No results found for: HSTROP Imaging No orders to display Last Echo: [place] 03/30/22L Nml LV size, EF 15%, severe global hypokinesis, mild MR, mild/mod TR, RSVP 48 mmHg. [facility] 10/01/20 1. Trisomy 21. 2. Ventricular septum: There appears to be small ventricular septal defect in the membranous region which has been resolved. It appears to have spontaneously closed by a small pouch of accessory tricuspid tissue. No ventricular level shunt. 3. Aorta: The arch is left-sided. The brachiocephalic branching pattern is abnormal. The right common carotid artery is the first aortic branch. 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 4. Normal left ventricular size and systolic function. 5. Doppler interrogations of all valves were within normal limits. 6. Estimated right ventricular systolic pressure is normal. Pertinent Diagnosis Acute systolic heart failure (HFrEF) / etiology unknown NYHA class III, ACC/AHA C EF 15%, LVIDD: 5.6 Date of Diagnosis: 03/30/22 GDMT: Diuretic: none - IV Lasix 40 mg BID Beta blockade: none ACEi / ARB / ARNI: none Aldosterone Antagonist (MRA): none SGLT2i: none Vasodilator: none Inotrope: none Device Therapy: new dx Strict I/O Daily weight Cardiac diet 2 gm sodium with 2 liter fluid restriction Plan: IV Lasix 40 mg BID Optimize GDMT as able Beaver Coronary Artery Disease No know history of CAD. Risk factors DMT1 Will need ischemic evaluation when fluid status improved Hyperlipidemia Continue current therapy Hypotension Received 2 L IVF at OSH Hold midodrine Currently limiting GDMT BP Readings from Last 3 Encounters: 04/03/22 99/66 Trisomy 21: Poor historian. Lives with Parents. Unable to contact mother this evening. She will be here in AM per nursing report. Acute hypoxic respiratory failure: On RA at baseline. Currently 2 L NC Wean oxygen as able ID: Admitted with fever, encephalopathy, cough. Was treated for staph abdominal wall cellulitis, now resolved. Seen by ID at OSH. Respiratory viral pcr panel, blood cx and lyme were negative. No abx weregiven. DMT1: On insulin pump at home. Discontinued on 03/29 at OSH. Continue Lantus 10 units AM and SSI. - consult to Endo Hypothyrois - continue levothyroxine Activity: Cardiac rehab, Physical Therapy and Occupational Therapy Code Status: Full Code Access: Patient Lines/Drains/Airways Status Active Lines, Drains, Airways, & Wound Overview Name Placement date Placement time Site Days Peripheral IV Line - Single Lumen 04/03/222019 metacarpal vein (top of hand), right 20 gauge 04/03/222019 -- less than 1 Peripheral IV Line - Single Lumen 04/03/222019 metacarpal vein (top of hand), left 20 gauge 04/03/222019 -- less than 1 Diet: DIET CARDIAC - VERY LOW SODIUM Fluid Restriction 2000mL (1000mL Nursing, 1000mL Nutrition) DVT Prophylaxis: lovenox Dispo: home . This plan will be discussed with Dr. Elizabeth Maxwell MD, the attending surveillance system monitor. ABRAN Rose HF2/Advanced Heart Failure Phone: [phone] [facility] Work Phone: [phone]) 159-821211-18-2022 History and physical note* ABRAN Siddiqui - 04/03/2022 10:02 PM EST Heart Failure 2/Advanced Heart Failure HISTORY AND PHYSICAL IDENTIFYING INFORMATION PATIENT: Kaylee Tariq ADMIT DATE: 04/03/2022 TIME OF EVALUATION: 04/03/2022 10:02 PM HISTORIAN: EMR (patient poor historian, unable to contact mother) Plan of Care: - IV Lasix 40 mg BID - consult Endo CHIEF COMPLAINT cough HISTORY OF PRESENT ILLNESS Kaylee Tariq is a 41 y.o. female with PMH of Trisomy 21, DM type 1 w/inslin pump, hypothyroidism who presents today as a transfer from [facility] with new EF 15%. Pt is poor historian giving limited answers to questions. Unable to contact mother at time of exam.Review of records reveals she presented to OSH on 03/28 with fevers and encephalopathy associated with nonproductive cough for 1 week. In the ED she was given 2 L IV fluids with improvement in lethargy. CBC and Chem were unremarkable. Lactate was elevated at 2.5. Infectious work up with UA, blood cultures, Covid and influenza were negative. Continued work up during admission included an Echo which revealed EF 15%. Previous Echo 09/2020 EF was 65%. She was started on IV Lasix 40 mg. Insulin pump was discontinued on 03/29 at [facility]. Currently covered with Lantus and sliding scale insulin. Of note, she was evaluated at [facility] for VSD and syncope. 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 Syncope was thought to be vasovagal in origin. She was prescribed midodrine and encouraged to liberalize fluid intake. She was transferred to [facility] for further evaluation and medication optimization. PAST MEDICAL, SURGICAL, FAMILY, and SOCIAL HISTORY No past medical history on file. No past surgical history on file. No family history on file. Social History Socioeconomic History Marital status: Single MEDICATIONS None I have personally reviewed the medication list, verified it, and updated it via the Medication Reconciliation Navigator: [ ]Verbally with the patient []With the patient's personal medication list []Verbally with the patient's family member [ x ]Verbally with the facility's MAR []With the patient's Pharmacy ALLERGIES: She has no allergies on file. REVIEW OF SYSTEMS Review of Systems Review of Systems Constitutional: Negative. Cardiovascular: Positive for dyspnea on exertion and orthopnea. Negative for leg swelling and paroxysmal nocturnal dyspnea. Respiratory: Positive for cough. Negative for sputum production and wheezing. Skin: Positive for itching (red patch Rt shoulder). Musculoskeletal: Negative. Gastrointestinal: Positive for bloating and nausea. Negative for abdominal pain and vomiting. Genitourinary: Negative. Neurological: Negative. Psychiatric/Behavioral: Negative. PHYSICAL EXAM Temp: [97.9 F (36.6 C)] Pulse (Heart Rate): [96] BP: (99)/(66) Resp Rate: [18] O2 Sat (%): [94 %] MEWS Score (AutoCalculated): [0-2] There is no height or weight on file to calculate BMI. Physical Exam Constitutional: No distress. She appears acutely ill. Eyes: Conjunctivae are normal. Neck: JVD (high neck) present. Cardiovascular: Normal rate, regular rhythm, S1 normal and S2 normal. Pulses: Radial pulses are 1+ on the right side and 1+ on the left side. Pulmonary/Chest: Effort normal. She exhibits no tenderness. diminished RLL Abdominal: Soft. Bowel sounds are normal. Musculoskeletal: General: Edema (trace) present. Normal range of motion. Cervical back: Normal range of motion and neck supple. Neurological: She is alert. She has normal motor skills. She exhibits a cognitive deficit. Skin: Skin is warm and dry. Round, red patch rt shoulder LABS AND IMAGING All recent labs and imaging personally review: No results found for: LDH Recent Labs 04/03/222034 GLUCOSE 238* No results for input(s): BNP in the last 72 hours. No results found for: HSTROP Imaging No orders to display Last Echo: [place] 03/30/22L Nml LV size, EF 15%, severe global hypokinesis, mild MR, mild/mod TR, RSVP 48 mmHg. [facility] 10/01/20 1. Trisomy 21. 2. Ventricular septum: There appears to be small ventricular septal defect in the membranous region which has been resolved. It appears to have spontaneously closed by a small pouch of accessory tricuspid tissue. No ventricular level shunt. 3. Aorta: The arch is left-sided. The brachiocephalic branching pattern is abnormal. The right common carotid artery is the first aortic branch. 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 4. Normal left ventricular size and systolic function. 5. Doppler interrogations of all valves were within normal limits. 6. Estimated right ventricular systolic pressure is normal. Pertinent Diagnosis Acute systolic heart failure (HFrEF) / etiology unknown NYHA class III, ACC/AHA C EF 15%, LVIDD: 5.6 Date of Diagnosis: 03/30/22 GDMT: Diuretic: none - IV Lasix 40 mg BID Beta blockade: none ACEi / ARB / ARNI: none Aldosterone Antagonist (MRA): none SGLT2i: none Vasodilator: none Inotrope: none Device Therapy: new dx Strict I/O Daily weight Cardiac diet 2 gm sodium with 2 liter fluid restriction Plan: IV Lasix 40 mg BID Optimize GDMT as able Beaver Coronary Artery Disease No know history of CAD. Risk factors DMT1 Will need ischemic evaluation when fluid status improved Hyperlipidemia Continue current therapy Hypotension Received 2 L IVF at OSH Hold midodrine Currently limiting GDMT BP Readings from Last 3 Encounters: 04/03/22 99/66 Trisomy 21: Poor historian. Lives with Parents. Unable to contact mother this evening. She will be here in AM per nursing report. Acute hypoxic respiratory failure: On RA at baseline. Currently 2 L NC Wean oxygen as able ID: Admitted with fever, encephalopathy, cough. Was treated for staph abdominal wall cellulitis, now resolved. Seen by ID at OSH. Respiratory viral pcr panel, blood cx and lyme were negative. No abx weregiven. DMT1: On insulin pump at home. Discontinued on 03/29 at OSH. Continue Lantus 10 units AM and SSI. - consult to Endo Hypothyrois - continue levothyroxine Activity: Cardiac rehab, Physical Therapy and Occupational Therapy Code Status: Full Code Access: Patient Lines/Drains/Airways Status Active Lines, Drains, Airways, & Wound Overview Name Placement date Placement time Site Days Peripheral IV Line - Single Lumen 04/03/222019 metacarpal vein (top of hand), right 20 gauge 04/03/222019 -- less than 1 Peripheral IV Line - Single Lumen 04/03/222019 metacarpal vein (top of hand), left 20 gauge 04/03/222019 -- less than 1 Diet: DIET CARDIAC - VERY LOW SODIUM Fluid Restriction 2000mL (1000mL Nursing, 1000mL Nutrition) DVT Prophylaxis: lovenox Dispo: home . This plan will be discussed with Dr. Elizabeth Maxwell MD, the attending surveillance system monitor. La Nena Galo, [employer] HF2/Advanced Heart Failure Phone: [phone] [facility]* Nursing Notes - Sofia Cho RN - 04/03/2022 8:20 PM EST Pt arrived with transport from OSH with personal belongings to 60 on . Pt arrived with two blankets and a jacket. Mom (primary caregiver) called to provide update and mom denied any questions at this time. Family plans to arrive tomorrow morning. Pt oriented to room and call light, denies pain, vitals stable. Pt resting comfortably in bed. Teamnotified of pt's arrival and report given. Awaiting orders from team. On admission to , from OSH a dual RN initial assessment of skin condition was performed by EDNA Aguirre and Jeniffer BISHOP. Skin Assessment: NOT WDL *PIVs present from OSH, red patch on upper R shoulder (OSH stated it's a bug bite) LDA Added:Y Sofia Cho RN [facility]05-18-2021 NoteKaylee Tariq is a new patient who's primary care provider is Mitchell Ledesma MD here for evaluation of Chief Complaint Patient presents with Follow Up vsd History of Presenting Problem Kaylee is a 40 y.o. young and delightful lady with Trisomy 21. Had recent hospitalization related to syncope. She is accompanied by her mother and father. Syncope This is a new problem. Onset was 1 to 4 weeks ago. The problem occurs rarely. The problem has been resolved. She lost consciousness for a period of less than 1 minute. The symptoms are aggravated by standing (was gardening, stood up from sitting position). Associated symptoms include dizziness, light-headedness and malaise/fatigue (feels sleepy and tired). Pertinent negatives include no abdominal pain, auditory change, aura, back pain, bladder incontinence, bowel incontinence, chest pain, diaphoresis, fever, focal sensory loss, focal weakness, headaches, nausea, palpitations, slurred speech, tonic/clonic seizures, vertigo, visual change, vomiting or weakness. There is no history of arrhythmia, a clotting disorder, CVA, DM, HTN, seizures, a sudden in family, TIA or vertigo. Noted to have low HR and abnormal echocardiogram at [facility] Cardiac Review of System Cardiovascular: Patient's ECG reviewed. Patient has dizziness and syncope. Patient has no chest pain, cyanosis, edema, murmur or palpitations. Patient has no dyspnea. She has no diaphoresis. She has no hypertension. Patient's exercise tolerance is good. Her NYHA Classification is I. Patient has a history of congenital heart defect. She has a ventricular septal defect. It is unrepaired. The patient has sinus bradycardia. Review of Systems Constitutional: Positive for malaise/fatigue (feels sleepy and tired) and weight gain. Negative for diaphoresis, fever and night sweats. Respiratory: Negative for cough and shortness of breath. Cardiovascular: Positive for syncope. Negative for chest pain, dyspnea on exertion, palpitations and cyanosis. Gastrointestinal: Negative for abdominal pain, bowel incontinence, change in bowel habit, nausea and vomiting. Genitourinary: Negative for bladder incontinence. Musculoskeletal: Negative for back pain. Skin: Negative for color change and nail changes. Neurological: Positive for dizziness and light-headedness. Negative for vertigo, focal weakness, seizures, weakness and headaches. Psychiatric/Behavioral: Negative for depression. The patient is not nervous/anxious. Past Medical History Patient Active Problem List Diagnosis Down's syndrome Hypothyroidism Type 1 diabetes mellitus Hyperlipidemia History reviewed. No pertinent surgical history. Medications: Outpatient Encounter Medications as of 10/01/2020 Medication Sig Dispense Refill insulin (HUMULIN R) 10 UNIT/ML SOLN Inject into the vein continuous levothyroxine (SYNTHROID) 50 MCG tablet Take by mouth daily midodrine (PROAMATINE) 5 MG tablet Take by mouth 3 times daily No facility-administered encounter medications on file as of 10/01/2020. Allergies: Not on File Family Medical History: There is no known family history of congenital heart disease, cardiomyopathy, early coronary artery disease, cardiac arrhythmia, or sudden cardiac . Social History: Lives with parents, very much functional. Socioeconomic History Marital status: Single Tobacco Use Smoking status: Never Smoker Smokeless tobacco: Never Used Substance and Sexual Activity Alcohol use: Yes Alcohol/week: 5.0 standard drinks Types: 5 Glasses of wine per week Drug use: Never Physical Exam: Vitals: 10/01/20 1033 BP: 122/65 Pulse: 55 Resp: 25 SpO2: 98% Weight - Scale: 73.5 kg Height: (!) 155 cm Body mass index is 30.59 kg/m . Physical Exam Vitals reviewed. Constitutional: General: She is not in acute distress. Appearance: She is well-developed. She is not diaphoretic. Comments: Physical features c/w Trisomy 21 patients. Neck: Thyroid: No thyromegaly. Vascular: No JVD. Trachea: No tracheal deviation. Cardiovascular: Normal rate, regular rhythm, S1 normal and S2 normal. No extrasystoles are present. PMI is not displaced. Exam reveals no gallop and no friction rub. Pulses are palpable. No murmur heard. No systolic murmur is present. No diastolic murmur is present. Pulses: Radial pulses are 1+ on the right side. Femoral pulses are 1+ on the right side. Pulmonary: Effort: Pulmonary effort is normal. No respiratory distress. Breath sounds: Normal breath sounds. Abdominal: General: Bowel sounds are normal. There is no distension. Palpations: Abdomen is soft. Tenderness: There is no abdominal tenderness. Musculoskeletal: Cervical back: Neck supple. Skin: General: Skin is warm and dry. Coloration: Skin is not pale. Neurological: Mental Status: She is oriented to person, place, and time. Motor: No abnormal muscle tone. Studi (more content not included)...[facility] Acute systolic heart failure- Primary NSTEMI (non-ST elevated myocardial infarction) Acute myocardial infarction, subendocardial infarction, episode of care unspecified Elevated troponin Other abnormal blood chemistry Acute systolic heart failure NSTEMI (non-ST elevated myocardial infarction) Acute myocardial infarction, subendocardial infarction, episode of care unspecified Coronary artery disease involving [place] coronary artery of [place]oon[place] heart without angina pectoris Type 1 diabetes mellitus with hyperglycemia Type I (juvenile type) diabetes mellitus without mention of complication, not stated as uncontrolled NSTEMI (non-ST elevated myocardial infarction) Acute myocardial infarction, subendocardial infarction, episode of care unspecified [facility] Chronic systolic heart failure- Primary [facility] Diagnosis Type 1 diabetes mellitus with hyperglycemia- Primary Type I (juvenile type) diabetes mellitus without mention of complication, not stated as uncontrolled [facility] Diagnosis Coronary artery disease involving [place] coronary artery of [place] heart without angina pectoris- Primary Hyperlipidemia, unspecified hyperlipidemia type Chronic systolic heart failure Symptomatic hypotension [facility] Diagnosis Systolic heart failure, chronic- Primary Chronic systolic heart failure [facility] Diagnosis Systolic heart failure, chronic Chronic systolic heart failure documented in this encounter [facility]* Diagnosis Systolic heart failure, chronic- Primary Chronic systolic heart failure documented in this encounter [facility] note* Diagnosis Systolic heart failure, chronic- Primary Chronic systolic heart failure documented in this encounter [facility] note* Diagnosis Systolic heart failure, chronic- Primary Chronic systolic heart failure Hyperlipidemia, unspecified hyperlipidemia type Coronary artery disease involving [place] coronary artery of [place] heart without angina pectoris documented in this encounter [facility] note* Diagnosis Systolic heart failure, chronic- Primary Chronic systolic heart failure Shortness of breath documented in this encounter [facility] note* Diagnosis Systolic heart failure, chronic- Primary Chronic systolic heart failure Hyperlipidemia, unspecified hyperlipidemia type PVC's (premature ventricular contractions) Other premature beats Type 1 diabetes mellitus with other circulatory complication documented in this encounter [facility] note* Diagnosis Type 1 diabetes mellitus with hyperglycemia- Primary Type I (juvenile type) diabetes mellitus without mention of complication, not stated as uncontrolled documented in this encounter [facility] note* Diagnosis Type 1 diabetes mellitus with hyperglycemia- Primary Type I (juvenile type) diabetes mellitus without mention of complication, not stated as uncontrolled Insulin pump status Type 1 diabetes mellitus with hypoglycemia and without coma Type I (juvenile type) diabetes mellitus with other specified manifestations, not stated as uncontrolled Acquired autoimmune hypothyroidism Other specified acquired hypothyroidism Chronic kidney disease, stage 3b [facility] Consultation (Urgent) - New Request Specialty Diagnoses / Procedures Referred By Bib michael Referred To Contact Electrophysiology Diagnoses Systolic heart failure, chronic Tammy Solares APRN-CNP [address], [address] [place] [phone] Referral ID Status Reason Start Date Expiration Date V isits Requested Visits Authorized [id number] New Request 07/09/2022 08/03/2023 1 [facility] Consultation (Routine) - New Request Specialty Diagnoses / Procedures Referred By Bib michael Referred To Contact Endocrinology, Diabetes & Metabolism Diagnoses Type 1 diabetes mellitus with other circulatory complication Elizabeth Maxwell MD [address] [place] [address] Referral ID Status Reason Start Date Expiration Date V isits Requested Visits Authorized [id number] New Request 10/20/2023 11/13/2024 1 1 * Radiology (Routine) - New Request Specialty Diagnoses / Procedures Referred By Bib michael Referred To Contact Diagnoses PVC's (premature ventricular contractions) Procedures MOBILE CARDIAC TELEMETRY Elizabeth Maxwell MD [address] [place] [address] Referral ID Status Reason Start Date Expiration Date V isits Requested Visits Authorized [id number] New Request 10/20/2023 11/13/2024 1 1 [facility] for visit Narrative* Auth/Cert Specialty Diagnoses / Procedures Referred By Bib michael Referred To Contact Diagnoses Heart Failure, R/O Viral Myocarditits Timothy Marks MD [address] [place] [address] [facility] [address] [place] [address] Referral ID Status Reason Start Date Expiration Date Visits Re quested Visits Authorized [id number] 1 1 [facility] Summary Purpose Family History No Family History Records FoundNo Family History Records FoundNo Family History Records FoundNo Family History Records Found Advance Directives No Advanced Directives Records FoundLatest Code Status on File Code Status Date Activated Date Inactivated Comments Full Code 04/04/2022 12:10 PM Code Status History Code Status Date Activated Date Inactivated Comments Full Code 04/03/2022 11:08 PM 04/04/2022 12:10 PM Latest Code Status on File Code Status Date Activated Date Inactivated Comments Full Code 04/04/2022 12:10 PM Code Status History Code Status Date Activated Date Inactivated Comments Full Code 04/03/2022 11:08 PM 04/04/2022 12:10 PM Date Activated Date Inactivated Comments 04/04/2022 12:10 PM Date Activated Date Inactivated Comments 04/03/2022 11:08 PM 04/04/2022 12:10 PM Reason for Referral Specialty Diagnoses / Procedures Referred By Contac t Referred To Contact Diagnoses Systolic heart failure, chronic Procedures ECHOCARDIOGRAM [place] ECHO HEART XTHORACIC,COMPLETE W DOPPLER Solares, Tammy L, VALVE FITTER-APPAREL DESIGNER [address], [address] [place] [phone] Referral ID Status Reason Start Date Expiration Date V isits Requested Visits Authorized [id number] New Request 06/11/2022 07/06/2023 1 1 Specialty Diagnoses / Procedures Referred By Contac t Referred To Contact Endocrinology, Diabetes & Metabolism Diagnoses Type 1 diabetes mellitus with [place] [address] [place] [address] [place] [address] Referral ID Status Reason Start Date Expiration Date V isits Requested Visits Authorized [id number] New Request 01/13/2024 02/06/2025 1 1 Scheduling Instructions Call [phone] to schedule outpatient DM Classes with the Division of Endocrinology, Metabolism and Diabetes. Locations available: [facility], Outpatient [facility] [place], Outpatient [facility] [place], Outpatient [facility] [place], Internal Medicine [place] Specialty Diagnoses / Procedures Referred By Contac t Referred To Contact Diagnoses Type 1 diabetes mellitus with [place] [address] [place] [address] [place] [phone] Referral ID Status Reason Start Date Expiration Date Visits Re quested Visits Authorized [id number] Closed 1 1 Referral ID Status Reason Start Date Expiration Date Visits Re quested Visits Authorized [id number] Closed 1 1 Additional Source Comments INFORMATION SOURCE (unrecogn ized section and content) DATE CREATED AUTHOR 07/14/2018 [facility] ([place]) DATE CREATED AUTHOR AUTHOR'S ORGANIZ ATION 12/08/2019 [facility] Ce marie Montejo DATE CREATED AUTHOR AUTHOR'S ORGANIZ ATION 10/08/2020 [facility] DATE CREATED AUTHOR AUTHOR'S ORGANIZ ATION 02/08/2024 [facility] Scheduled Active and Recently Administ ered Medications (unrecognized section and content) Medication Order 04/07/2022 04/08/2022 04/09/2022 ammonium lactate (LAC-HYDRIN) 12 % lotion 1 Application 1 Application, Topical, 2 TIMES DAILY, First dose on 04/04/22 at 0900, Until Discontinued 0846 (Given - Provider: Ayad Perez Nurse)1538 (Not Given - Provider: Tanna Boudreaux RN - Reason: Patient/family refused) 0749 (Not Given - Provider: Tanna Boudreaux RN - Reason: Patient/family refused - Comment: wanted to use her own lotion)1747 (Not Given - Provider: Tanna Boudreaux RN - Reason: Patient/family refused) 0841 (Not Given - Provider: Nancy Carreon RN - Reason: Patient/family refused)1700 (Canceled Entry - Provider: System Discharge - Comment: Automatically canceled at discontinue of medication order) aspirin chewable tablet 81 mg 81 mg, Oral, DAILY, First dose on 04/04/22 at 1000, Until Discontinued 0839 (Given - Provider: Ayad Perez) 0747 (Given - Provider: Tanna Boudreaux, EDNA) 0842 (Given - Provider: Nancy Carreon, EDNA) Enoxaparin Sodium (LOVENOX) injection 40 mg(Linked Group 1) 40 mg, Subcutaneous, DAILY, First dose on 04/04/22 at 1015, Until Discontinued, , Indications: DVT/PE prophylaxis 0840 (Given - Provider: Ayad Perez Nurse) 0747 (Given - Provider: Tanna Boudreaux, EDNA) 0845 (Given - Provider: Nancy Carreon, EDNA) escitalopram (LEXAPRO) tablet 5 mg 5 mg, Oral, DAILY, First dose on 04/04/22 at 0900, Until Discontinued 0841 (Given - Provider: Dexter Drew, Student Nurse) 0749 (Given - Provider: Tanna Boudreaux, EDNA) 0849 (Given - Provider: Nancy Carreon, RN) furOSEmide (LASIX) injection 100 mg (CANCELED) 100 mg, Intravenous, 2 TIMES DAILY BEFORE MEALS, First dose (after last modification) on 04/06/22 at 1600, Until Discontinued, Administer by slow IV push at a rate not exceeding 40mg/min 0955 (Hold - Provider: Tanna Boudreaux, EDNA - Reason: Other - Comment: hold until after MRI so not having to pee on the table)1506 (Given - Provider: Tanna Boudreaux, EDNA) Gadobutrol (GADAVIST) 1 MMOL/ML injection 1-30 mL (COMPLETED) 1-30 mL, Intravenous, ONCE, 1 dose, On Tu04/07/22 at 1430, Extravasation Risk 1429 (Given - Radiology - Provider: Erlin Reagan) insulin glargine injection 10 Units (CANCELED) 10 Units, Subcutaneous, DAILY, First dose on 04/04/22 at 0900, Until Discontinued, Do not mix in syringe with other insulins. 0842 (Given - Provider: Dexter Drew, Student Nurse) insulin glargine injection 10 Units (CANCELED) 10 Units, Subcutaneous, EVERY 24 HOURS, First dose (after last modification) on Wed04/08/22 at 1000, Until Discontinued, Do not mix in syringe with other insulins. 0930 (Given - Provider: Tanna Boudreaux, EDNA) insulin glargine injection 9 Units(Linked Group 2) 9 Units, Subcutaneous, EVERY 24 HOURS, First dose (after last modification) on Ashley 04/09/22 at 1200, Until Discontinued, Do not mix in syringe with other insulins. 1244 (Not Given - Provider: Nancy Carreon, EDNA - Reason: Other - Comment: Patient getting discharged and will resume insulin pump at home. Glargine will not be given based on decision from patient, mother, and HF 1 resident) insulin lispro (HumaLOG) injection (CANCELED) Subcutaneous, 4 TIMES DAILY WITH MEALS & AT BEDTIME, First dose (after last modification) on Wed04/05/22 at 1700, Until Discontinued, Insulin to carb ratio: Standard: 1 unit insulin = 8 grams carbs every meal and at bedtime Correction Factor: 151-200 = 1 unit; 201-250 = 2 units; 251-300 = 3 units; 301-350 = 4 units; 351-400 = 5 units; Kwikpen: Prime pen before each injection; refer to Pen Priming and Care Handout for further details. Warning! Confirm patient. Insulin pen is for labeled individual patient use ONLY. 0842 (Given - Provider: Dexter Drew, Student Nurse - Comment: npo plus 10 units of lantus given. dont want drop blood sugar) insulin lispro (HumaLOG) injection(Linked Group 3) Subcutaneous, 4 TIMES DAILY WITH MEALS & AT BEDTIME, First dose (after last modification) on Wed04/07/22 at 1200, Until Discontinued, Insulin to carb ratio: 1 unit insulin = 10 grams carbs every meal and at bedtime Correction Factor: 151-200 = 1 unit; 201-250 = 2 units; 251-300 = 3 units; 301-350 = 4 units; 351-400 = 5 units; Kwikpen: Prime pen before each injection; refer to Pen Priming and Care Handout for further details. Warning! Confirm patient. Insulin pen is for labeled individual patient use ONLY. 1232 (Given - Provider: Tanna Boudreaux RN - Comment: given to patient in MRI since BS 404 before she left. [address] Farris)1853 (Given - Provider: Tanna Boudreaux RN)203 (Given - Provider: Emily Lobo, EDNA) 0930 (Given - Provider: Tanna Boudreaux RN - Comment: correction- 3 units carb coverage- 5 units)1151 (Given - Provider: Tanna Boudreaux RN)1745 (Given - Provider: Tanna Boudreaux, EDNA)2214 (Given - Provider: Nathaly Williamson, EDNA) 0853 (Given - Provider: Nancy Carreon, EDNA)1113 (Given - Provider: Nancy Carreon, EDNA)1700 (Canceled Entry - Provider: System Discharge - Comment: Automatically canceled at discontinue of medication order) iron dextran (INFED) 1,000 mg in sodium chloride 0.9%, with overfill 570 mL (total volume) IVPB (COMPLETED) 1,000 mg, Intravenous, Administer over 60 Minutes, ONCE, 1 dose, On Ashley 04/09/22 at 1300, Obtain vitals (HR, BP, and RR) just prior to infusion start. RN visualization of patient at bedside/chairside required for the 1st 15 minutes of the infusion for patient's FIRST full/therapeutic dose only. Repeat vitals and RN clinical assessment every 30 minutes throughout infusion and for at least 30 minutes (1 set) post infusion. Monitor closely for signs of infusion reaction throughout infusion and for 30 minutes post infusion. If signs of reaction occur, stop infusion, check vitals, and contact provider. 1304 ($$New Bag$$ - Provider: Nancy Carreon RN)1333 (Stopped - Provider: Nancy Carreon RN) iron dextran (INFED) 25 mg in sodium chloride 0.9%, with overfill 60.5 mL (total volume) IVPB (COMPLETED) 25 mg, Intravenous, at 242 mL/hr, Administer over 15 Minutes, ONCE, 1 dose, On Ashley 04/09/22 at 1000, Do not premedicate for test dose. Obtain baseline vitals (HR, BP, and RR). Educate patient about infusion related symptoms. RN visualization of patient at bedside/chairside required for the 1st 15 minutes. Obtain vitals and RN clinical assessment at completion. Repeat vitals and RN clinical assessment 30 minutes post infusion. Monitor closely for signs of infusion reaction throughout infusion and for 30 minutes post infusion. If signs of reaction occur, stop infusion, check vitals, and contact provider. Must wait 1 hour from test dose end before administering premedications for the full (therapeutic) dose. 1144 ($$New Bag$$ - Provider: Nancy Carreon RN)1156 (Stopped - Provider: Nancy Carreon RN) levothyroxine (SYNTHROID) tablet 50 mcg 50 mcg, Oral, DAILY BEFORE BREAKFAST, First dose on 04/04/22 at 0600, Until Discontinued 0520 (Given - Provider: Ayala Marinelli RN) 0747 (Given - Provider: Tanna Boudreaux RN) 0842 (Given - Provider: Nancy Carreon RN) losartan (COZAAR) tablet 25 mg (CANCELED) 25 mg, Oral, DAILY, First dose on 04/05/22 at 0930, Until Discontinued 0839 (Given - Provider: Ayad Perez Nurse) 0857 (Hold - Provider: Tanna Boudreaux RN - Reason: Other - Comment: hold per . MAP 61)0950 (Held by provider - Provider: Randall Martinez MD - Reason: Other) 0900 (Automatically Held - Provider: Randall Martinez MD)0934 (Unheld by provider - Provider: Gabino Enriquez MD) metoprolol succinate (TOPROL-XL) tablet XL 12.5 mg (CANCELED) 12.5 mg, Oral, DAILY, First dose on Wed04/08/22 at 1030, Until Discontinued, Slow release product. Do not crush. Extended release can be cut in half. 1005 (Given - Provider: Tanna Boudreaux RN) 0842 (Given - Provider: Nancy Carreon RN) metoprolol succinate (TOPROL-XL) tablet XL 12.5 mg 12.5 mg, Oral, DAILY, First dose (after last modification) on Wed04/10/22 at 0900, Until Discontinued, Slow release product. Do not crush. Extended release can be cut in half. polyethylene glycol (MIRALAX) packet 17 g 17 g, Oral, DAILY, First dose on 04/04/22 at 1530, Until Discontinued 0839 (Not Given - Provider: Ayad Perez Nurse - Reason: Patient/family refused) 0751 (Not Given - Provider: Tanna Boudreaux RN - Reason: Other) 0840 (Not Given - Provider: Nancy Carreon RN - Reason: Patient/family refused) rosuvastatin (CRESTOR) tablet 40 mg 40 mg, Oral, DAILY WITH DINNER, First dose on 04/05/22 at 1700, Until Discontinued 1536 (Given - Provider: Tanna Boudreaux RN) 1747 (Given - Provider: Tanna Boudreaux RN) 1700 (Canceled Entry - Provider: System Discharge - Comment: Automatically canceled at discontinue of medication order) senna (SENOKOT) tablet 8.6 mg 8.6 mg, Oral, DAILY, First dose on 04/04/22 at 1530, Until Discontinued 0838 (Not Given - Provider: Ayad Perez Nurse - Reason: Patient/family refused) 0752 (Not Given - Provider: Tanna Boudreaux RN - Reason: Other) 0840 (Not Given - Provider: Nancy Carreon RN - Reason: Patient/family refused) spironolactone (ALDACTONE) tablet 12.5 mg 12.5 mg, Oral, DAILY, First dose (after last modification) on Wed04/09/22 at 0900, Until Discontinued, Max 400 mg/day 0842 (Given - Provider: Nancy Carreon, EDNA) spironolactone (ALDACTONE) tablet 25 mg (CANCELED) 25 mg, Oral, DAILY, First dose (after last modification) on Wed04/07/22 at 0900, Until Discontinued, Max 400 mg/day 0956 (Hold - Provider: Tanna Boudreaux RN - Reason: Other - Comment: hold until after MRI so not having to pee on the table)1507 (Given - Provider: Tanna Boudreaux RN - Comment: given late d/t just coming back from MRI) 0747 (Given - Provider: Tanna Boudreaux RN) terbinafine (lamISIL) 1 % cream 1 Application 1 Application, Topical, 2 TIMES DAILY, 28 doses, First dose on 04/05/22 at 1100, Last dose on 04/18/22 at 1700, Apply to affected area and 2cm surrounding border of lesion on shoulder 0845 (Given - Provider: Ayad Perez Nurse)1538 (Given - Provider: Tanna Boudreaux RN) 0750 (Given - Provider: Tanna Boudreaux RN)1744 (Given - Provider: Tanna Boudreaux RN) 0845 (Given - Provider: Nancy Carreon RN)1700 (Canceled Entry - Provider: System Discharge - Comment: Automatically canceled at discontinue of medication order) ticagrelor (BRILINTA) tablet 90 mg 90 mg, Oral, EVERY 12 HOURS, First dose (after last modification) on 04/04/22 at 2330, Until Discontinued, Maintenance doses of aspirin above 100mg reduce the effectiveness of ticagrelor and should be avoided. After any initial dose, use with aspirin 81mg per day., Post-op/Post-Proc 0840 (Given - Provider: Dexter Drew, Student Nurse)2031 (Given - Provider: Emily Lobo, EDNA) 0749 (Given - Provider: Tanna Boudreaux, EDNA)2210 (Given - Provider: Nathaly Williamson, EDNA) 0849 (Given - Provider: Nancy Carreon, RN) torsemide (DEMADEX) tablet 20 mg 20 mg, Oral, DAILY, First dose on Wed04/09/22 at 1015, Until Discontinued, Max: 200 mg/day 1141 (Given - Provider: Nancy Carreon, EDNA) torsemide (DEMADEX) tablet 40 mg (COMPLETED) 40 mg, Oral, ONCE, 1 dose, On Wed04/07/22 at 2000, Max: 200 mg/day 2031 (Given - Provider: Emily Lobo RN - Comment: BP 83/50 -map 62 give per meme mdmap goall 55) torsemide (DEMADEX) tablet 40 mg (CANCELED) 40 mg, Oral, DAILY, First dose (after last reorder) on Wed04/08/22 at 1030, Until Discontinued, Max: 200 mg/day 1004 (Given - Provider: Tanna Boudreaux, EDNA) 0655 (Held by provider - Provider: Gabino Enriquez MD - Reason: Other)0900 (Automatically Held - Provider: Gabino Enriquez MD)0934 (Unheld by provider - Provider: Gabino Enriquez MD) PRN Medication Order 04/07/2022 04/08/2022 04/09/2022 acetaminophen (TYLENOL) tablet 650 mg 650 mg, Oral, EVERY 6 HOURS NEEDED, Starting on 04/04/22 at 1330, Until Ashley 04/09/22 at 1851, Moderate Pain, Severe Pain, Oral temp > 100.4 F, Headaches, Mild Pain, Infusion Reaction, Maximum dose of acetaminophen is 4000 mg from all sources in 24 hours. alum/mag hydrox.-simethicone oral suspension 30 mL 30 mL, Oral, EVERY 6 HOURS NEEDED, Starting on 04/03/22 at 2054, Until Ashley 04/09/22 at 1851, Indigestion, Per 5 mL is equivalent to: (Alum-Mag Hydroxide 200-225 mg and Simethicone 20 mg) and (Alum-Mag Hydroxide 200-200 mg and Simethicone 20 mg) benzocaine-menthol (CEPACOL) 15-3.6 MG per lozenge 1 lozenge 1 lozenge, Oral, EVERY 2 HOURS NEEDED, Starting on Wed04/03/22 at 2054, Until Wed04/09/22 at 1851, Sore Throat, Max 8 lozenges/day Patient may self-administer. 0327 (Given - Provider: Emily Lobo, EDNA) Calamine-Zinc Oxide 8-8 % lotion 1 Application 1 Application, Topical, NEEDED, Starting on Wed04/04/22 at 1349, Until Ashley 04/09/22 at 1851, Itching, Patient may self-administer. dextrose 50% injection 7.5-25 g(Linked Group 3) 7.5-25 g, Intravenous, ADMINISTER DIRECTED, Starting on Wed04/07/22 at 0958, Until Wed04/09/22 at 1851, Blood glucose <80 mg/dL, For patients who are not alert, are NPO, or are on IV insulin infusion administer as directed per Hypoglycemia in Non- Adults Clinical Practice Guideline. For Blood Glucose: 60-79 mg/dL administer 7.5 gm (15ml); 45-59 mg/dL administer 12.5 gm (25ml); less than 45mg/dL administer 25gm (50ml). ++ If additional dextrose 50% needed, contact pharmacy or obtain from crash cart ++ glucose (GLUTOSE) 40 % oral gel 1-2 Tube(Linked Group 3) 1-2 Tube, Oral, ADMINISTER DIRECTED, Starting on Wed04/07/22 at 0958, Until Ashley 04/09/22 at 1851, Blood glucose <80 mg/dL, For patients who are alert, able to tolerate PO intake and with intact cognitive status administer as directed per Hypoglycemia in Non- Adults Clinical Practice Guideline. For Blood Glucose: 60-79 mg/dL administer 1 tube; 45-59 mg/dl administer 1.5 tubes; less than 45 mg/dL administer 2 tubes. Each tube of 37.5g delivers 15g of carbohydrate. ++ Consider juice or food per Clinical Practice Guideline first if appropriate. For Insta-Glucose product: Each tube of 31g delivers 24g of carbohydrate. Percent strength 77.4% represents glucose content, equal to ~40% dextrose content.++ guaiFENesin-dextromethorp green (ROBITUSSIN DM) 100-10 MG/5ML syrup 10 mL 10 mL, Oral, EVERY 4 HOURS NEEDED, Starting on Wed04/08/22 at 0801, Until Ashley 04/09/22 at 1851, Cough 1015 (Given - Provider: Tanna Boudreaux RN)1640 (Given - Provider: Tamera Pierson RN) 0904 (Given - Provider: Nancy Carreon, RN)1334 (Given - Provider: Nancy Carreon, RN) insulin lispro (HumaLOG) injection(Linked Group 3) Subcutaneous, NEEDED, Starting on Wed04/07/22 at 0958, Until Ashley 04/09/22 at 1851, Other, As needed for snacks, Insulin to carb ratio: 1 unit insulin = 10 grams carbs Correction Factor: not to be used with this order. Kwikpen: Prime pen before each injection; refer to Pen Priming and Care Handout for further details. Warning! Confirm patient. Insulin pen is for labeled individual patient use ONLY. 1503 (Given - Provider: Tanna Boudreaux RN) 1255 (Given - Provider: Tanna Boudreaux RN) 0941 (Given - Provider: Nancy Carreon, EDNA)1247 (Given - Provider: Nancy Carreon, EDNA) magnesium oxide (MAG-OX) tablet 800 mg 800 mg, Oral, ADMINISTER DIRECTED, Starting on 04/04/22 at 1904, Until Ashley 04/09/22 at 1851, See admin instructions, For Magnesium 1.6 - 2.0, give 800 mg of Magnesium oxide. 0423 (Given - Provider: Ayala Marinelli RN) 0842 (Given - Provider: Nancy Carreon, EDNA) Magnesium Sulfate 4 g in sterile water 50 ml premix IVPB 4 g, Intravenous, Administer over 4 Hours, ADMINISTER DIRECTED, Starting on 04/04/22 at 1904, Until Ashley 04/09/22 at 1851, Other, Magnesium Replacement Therapy, If Magnesium less than 1.6, give 4 g Magnesium Sulfate IVPB over 4 hours (may give over 1 hour if arrhythmias present). melatonin tablet 6 mg 6 mg, Oral, DAILY AT BEDTIME NEEDED, Starting on Wed04/03/22 at 2054, Until Wed04/09/22 at 1851, Insomnia ondansetron (ZOFRAN-ODT) disintegrating tablet 4 mg 4 mg, Oral, EVERY 6 HOURS NEEDED, Starting on Wed04/04/22 at 1507, Until Wed04/09/22 at 1851, Nausea / Vomiting polyethylene glycol (MIRALAX) packet 17 g 17 g, Oral, DAILY NEEDED, Starting on Wed04/03/22 at 2054, Until Wed04/09/22 at 1851, Constipation 1st Line Polyvinyl Alcohol-Povidone PF (REFRESH) ophthalmic solution 1 drop 1 drop, Both Eyes, EVERY 1 HOUR NEEDED, Starting on Wed04/03/22 at 2054, Until Wed04/09/22 at 1851, Dry Eyes, Patient may self-administer. potassium chloride (K-DUR) tablet ER 20-40 mEq 20-40 mEq, Oral, ADMINISTER DIRECTED, Starting on Wed04/04/22 at 1904, Until Wed04/09/22 at 1851, See admin instructions, If SCr 2.0 - 2.5 mg/dL 1. For Potassium 3.6-4.0, give 20 mEq potassium chloride. 2. If Potassium less than 3.6, give 40 mEq potassium chloride, recheck in AM. If SCr greater than 2.5 and potassium less than 4.0, Contact MD/VIKI for replacement order. potassium chloride (K-DUR) tablet ER 40-60 mEq 40-60 mEq, Oral, ADMINISTER DIRECTED, Starting on Wed04/04/22 at 1904, Until Wed04/09/22 at 1851, See admin instructions, If SCr less than 2.0 mg/dL 1. For Potassium 3.6 - 4.0, give 40 mEq of Potassium Chloride orally, recheck in the AM. 2. For Potassium less than 3.6, give 60 mEq Potassium Chloride orally, recheck in 8 hours. If potassium is low please administer magnesium first if indicated. sodium chloride (PF) 0.9 % injection 1-100 mL (COMPLETED) 1-100 mL, Intravenous, ONCE NEEDED, 1 dose, Starting on Wed04/07/22 at 1428, Until Wed04/07/22 at 1429, Flush, MR Procedure 1429 (Given - Provider: Erlin Reagan) sodium chloride 0.9% IV solution 250 mL Intravenous, at 20 mL/hr, NEEDED, Starting on Wed04/03/22 at 2054, Until Wed04/09/22 at 1851, Carrier Fluid - See Admin. Inst, 250mL 0.9NS to be used as carrier fluid for intermittent small volume or piggyback medication administration as needed. Infusion rate of the carrier fluid should be set at 20 mL/hr unless the rate as the intermittent medication is less than 20 mL/hr. For intermittent medications with a rate less than 20 mL/hr set the carrier fluid at that rate of the intermittent or piggy back medication. Linked Groups Order Group 1: Enoxaparin Sodium (LOVENOX) injection 40 mgJump to med 40 mg, Subcutaneous, DAILY, First dose on Wed04/04/22 at 1015, Until Discontinued

Indications: DVT/PE prophylaxis And PLATELET COUNT (CANCELED) Routine, EVERY 3 DAYS AM LAB, First occurrence on Wed04/07/22 at 0500, Until Specified, New collection Group 2: insulin glargine injection 9 UnitsJump to med 9 Units, Subcutaneous, EVERY 24 HOURS, First dose (after last modification) on Wed04/09/22 at 1200, Until Discontinued
Do not mix in syringe with other insulins.
And NOTIFY PHYSICIAN, OTHER (CANCELED) Routine, CONTINUOUS, Starting on Wed04/09/22 at 0548, Until Specified
Who to Notify: Stonemason
Call Stonemason if a.m. Glucose is less than 80 and dose reduction not already ordered. Group 3: insulin lispro (HumaLOG) injectionJump to med Subcutaneous, 4 TIMES DAILY WITH MEALS & AT BEDTIME, First dose (after last modification) on Wed04/07/22 at 1200, Until Discontinued
Insulin to carb ratio: 1 unit insulin = 10 grams carbs every meal and at bedtime Correction Factor: 151-200 = 1 unit; 201-250 = 2 units; 251-300 = 3 units; 301-350 = 4 units; 351-400 = 5 units; Kwikpen: Prime pen before each injection; refer to Pen Priming and Care Handout for further details. Warning! Confirm patient. Insulin pen is for labeled individual patient use ONLY.
And insulin lispro (HumaLOG) injectionJump to med Subcutaneous, NEEDED, Starting on Wed04/07/22 at 0958, Until Wed04/09/22 at 1851, Other, As needed for snacks
Insulin to carb ratio: 1 unit insulin = 10 grams carbs Correction Factor: not to be used with this order. Kwikpen: Prime pen before each injection; refer to Pen Priming and Care Handout for further details. Warning! Confirm patient. Insulin pen is for labeled individual patient use ONLY.
And BLOOD GLUCOSE (POC DEVICE) (CANCELED) Routine, 4 TIMES DAILY BEFORE MEALS & AT BEDTIME, First occurrence on Wed04/07/22 at 1030
If any Blood Glucose (POC) is greater than 300mg/dl, then repeat Blood Glucose (POC) in 2 hours. If the initial blood glucose was greater than 300mg/dl and if second blood glucose is greater than 200md/dl, then notify Stonemason. And BLOOD GLUCOSE (POC DEVICE) (CANCELED) Routine, DIRECTED, Starting on Wed04/07/22 at 0958, Until Specified
For all Blood Glucose LESS THAN 80 mg/dL, treat per Hypoglycemia in Non- Adults Clinical Practice Guideline (CPG) and recheck glucose 15 min after treatment. Repeat per CPG until glucose GREATER THAN 80 mg/dL. Once glucose IS GREATER THAN 80 mg/dL, recheck Blood Glucose every 1 hour x2, then resume as previously ordered. For Blood Glucose LESS THAN 80 mg/dL on admission OR LESS than 45 mg/dL at any time, obtain POC Blood Glucose every 4 hours for 6 occurrences AFTER treating per CPG. Obtain blood glucose for symptoms of hypoglycemia: sweating, shaking, fatigue, rapid pulse, slow thinking & dizziness. Notify physician w/results. Obtain blood glucose for symptoms of hyperglycemia: excessive thirst, blurred vision, excessive urination & tiredness. Notify physician w/results. If patient NPO, obtain POC Blood Glucose prior to administration of any insulin products. And COMMUNICATION ORDER FOR NURSING CARE: For Blood Glucose LESS THAN 80 mg/dl (CANCELED) Routine, CONTINUOUS, Starting on Wed04/07/22 at 0959, Until Specified
For Blood Glucose LESS THAN 80 mg/dl follow Hypoglycemia in Non- Adults Clinical Practice Guideline (CPG) And dextrose 50% injection 7.5-25 gJump to med 7.5-25 g, Intravenous, ADMINISTER DIRECTED, Starting on Wed04/07/22 at 0958, Until Ashley 04/09/22 at 1851, Blood glucose <80 mg/dL
For patients who are not alert, are NPO, or are on IV insulin infusion administer as directed per Hypoglycemia in Non- Adults Clinical Practice Guideline. For Blood Glucose: 60-79 mg/dL administer 7.5 gm (15ml); 45-59 mg/dL administer 12.5 gm (25ml); less than 45mg/dL administer 25gm (50ml). ++ If additional dextrose 50% needed, contact pharmacy or obtain from crash cart ++
And glucose (GLUTOSE) 40 % oral gel 1-2 TubeJump to med 1-2 Tube, Oral, ADMINISTER DIRECTED, Starting on Wed04/07/22 at 0958, Until Ashley 04/09/22 at 1851, Blood glucose <80 mg/dL
For patients who are alert, able to tolerate PO intake and with intact cognitive status administer as directed per Hypoglycemia in Non- Adults Clinical Practice Guideline. For Blood Glucose: 60-79 mg/dL administer 1 tube; 45-59 mg/dl administer 1.5 tubes; less than 45 mg/dL administer 2 tubes. Each tube of 37.5g delivers 15g of carbohydrate. ++ Consider juice or food per Clinical Practice Guideline first if appropriate. For Insta-Glucose product: Each tube of 31g delivers 24g of carbohydrate. Percent strength 77.4% represents glucose content, equal to ~40% dextrose content.++
And NOTIFY PHYSICIAN, Blood Glucose LESS THAN 80 mg/dl (CANCELED) Routine, CONTINUOUS, Starting on Wed04/07/22 at 0959, Until Specified
Who to Notify: Stonemason
For all Blood Glucose LESS THAN 80 mg/dl, notify Stonemason after treatment per Hypoglycemia in Non- Adults Clinical Practice Guideline And Carbohydrate counts with meals (CANCELED) Routine, CONTINUOUS, Starting on Wed04/07/22 at 0959, Until Specified
Carbohydrate counts are to be done after each patient meal and with snack. Care Teams (unrecognized sec tion and content) Package Sealer Machine Relationship Specialty Start Date End Date Kaylee Estrada DO [address] [place] [address] PCP - General Family Medicine 04/04/22 Jonah Hemphill MD [address] [id number] Endocrinology, Diabetes & Metabolism 04/05/22 Dwayne Rothman [address] [place] [address] 04/05/22 Package Sealer Machine Relationship Specialty Start Date End Date Kaylee Estrada DO [address] [place] [phone] PCP - General Family Medicine 04/04/22 Jonah Hemphill MD [address] [address] Endocrinology, Diabetes & Metabolism 04/05/22 Dwayne Rothman DPM [address] [place] [address] 04/05/22 Package Sealer Machine Relationship Specialty Start Date End Date Kaylee Estrada DO [address] [place] [phone] PCP - General Family Medicine 04/04/22 Jonah Hemphill MD [address] [place] [address] Endocrinology, Diabetes & Metabolism 04/05/22 Dwayne Rothman, [place] [address] [place] [address] 04/05/22 Package Sealer Machine Relationship Specialty Start Date End Date Natalie KayleeDO [address] [place] [phone] PCP - General Family Medicine 04/04/22 Jonah Hemphill MD [address] [place] [address] Endocrinology, Diabetes & Metabolism 04/05/22 Dwayne Rothman, [place] [address] [place] [address] 04/05/22 Package Sealer Machine Relationship Specialty Start Date End Date Kaylee EstradaDO [address] [place] [phone] PCP - General Family Medicine 04/04/22 Jonah Hemphill MD [address] [place] [address] Endocrinology, Diabetes & Metabolism 04/05/22 Dwayne Rothman, [place] [address] [place] [address] 04/05/22 Package Sealer Machine Relationship Specialty Start Date End Date NatalieAngieaDO [address] [place] [phone] PCP - General Family Medicine 04/04/22 Jonah Hemphill MD [address] [address] Endocrinology, Diabetes & Metabolism 04/05/22 Dwayne Rothman, [place] [address] [place] [phone] 04/05/22 Package Sealer Machine Relationship Specialty Start Date End Date Kaylee Estrada DO [address] [place] [phone] PCP - General Family Medicine 04/04/22 Jonah Hemphill MD [address] [address] Endocrinology, Diabetes & Metabolism 04/05/22 Dwayne Rothman DPM [address] [place] [address] 04/05/22 Package Sealer Machine Relationship Specialty Start Date End Date Kaylee Estrada DO [address] [place] [phone] PCP - General Family Medicine 04/04/22 Jonah Hemphill MD [address] [address] Endocrinology, Diabetes & Metabolism 04/05/22 Dwayne Rothman, [place] [address] [place] [address] 04/05/22 Package Sealer Machine Relationship Specialty Start Date End Date aKylee Estrada DO [address] [place] [phone] PCP - General Family Medicine 04/04/22 Jonah Hemphill MD [address] [address] Endocrinology, Diabetes & Metabolism 04/05/22 Dwayne Rothman DPM [address] [place] [address] 04/05/22 Package Sealer Machine Relationship Specialty Start Date End Date Kaylee Estrada DO [address] [place] [address] PCP - General Family Medicine 04/04/22 Jonah Hemphill MD [address] [phone] Endocrinology, Diabetes & Metabolism 04/05/22 Dwayne Rothman DPM [address] [place] [address] 04/05/22 Package Sealer Machine Relationship Specialty Start Date End Date Kaylee Estrada DO [address] [facility] [place] [address] PCP - General Family Medicine 04/04/22 Jonah Hemphill MD [address] [phone] Endocrinology, Diabetes & Metabolism 04/05/22 Dwayne Rothman DPM [address] [place] [address] 04/05/22 Reason for Visit (unrecogniz ed section and content) Reason Comments Surgical Follow-up Hospital follow up f rom stent placement. No concerns or complaints Reason Comments Patient Education Specialty Diagnoses / Procedures Referred By Bib t Referred To Contact Endocrinology, Diabetes & Metabolism Diagnoses Type 1 diabetes mellitus with hyperglycemia Diane Fraga MD, PhD [address] [facility] [address] [place] [address] Referral ID Status Reason Start Date Expiration Date V isits Requested Visits Authorized [id number] New Request 04/23/2022 05/18/2023 1 1 Reason Comments Hypertension Patient is present w ith her mother and father. Mother states that Kaylee has been having nose bleeds everyday for about a week now. She also states she has been very tired as well. Specialty Diagnoses / Procedures Referred By Contact Referred To Contact Cardiovascular Medicine Diagnoses Acute systolic heart failure Timothy Marks MD [address] [place] [address] Referral ID Status Reason Start Date Expiration Date V isits Requested Visits Authorized [id number] New Request 04/07/2022 05/02/2023 1 1 Reason Onset Date Comments Medication Refill 06/08/2022 Reason Comments Follow-up Pt reports feeling s leepy. No questions or concerns at this time. Specialty Diagnoses / Procedures Referred By Bib michael Referred To Contact Diagnoses Systolic heart failure, chronic Procedures ECHOCARDIOGRAM [place] ECHO HEART XTHORACIC,COMPLETE W DOPPLER Tammy Solares, VALVE FITTER-APPAREL DESIGNER [address] [place] [address] [address], [address] [place] [address] Referral ID Status Reason Start Date Expiration Date V isits Requested Visits Authorized [id number] New Request 06/11/2022 07/06/2023 1 1 Reason Comments Heart Failure No concerns or compl aints. Reason Onset Date Comments Results 10/19/2022 Reason Comments Follow-up Heart Problem Heart Failure Reason Comments Follow-up Heart Failure Patient has no new i ssues. BP has been low sometimes and thinks it due to dehydration. Patient does feel dizzy with these episodes. Patient tolerating meds. Reason Onset Date Comments Cardiac Clearance 06/02/2023 Reason Comments Heart Problem Patient states no ne w concerns or complaints. 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 This clinical summary was aggregated from multiple sources. Caution should be exercised in using it in the provision of clinical care. This summary normalizes information from multiple sources, and as a consequence, information in this document may materially change the coding, format and clinical context of patient data. In addition, data may be omitted in some cases. CLINICAL DECISIONS SHOULD BE BASED ON THE PRIMARY CLINICAL RECORDS. [employer] [facility]. provides no warranty or guarantee of the accuracy or completeness of information in this document.
--- NOTE | 2024-03-11 15:24 | ED.VIS.GI ---
HPI HPI - GI History of Present Illness Chief Complaint: Fall Informant: patient and parent Abdominal Pain/Flank Pain Onset: Today Context: Gradual Onset Timing: Continuous Location: Diffuse Worsened by: Nothing Relieved by: Nothing Nausea/Vomiting/Emesis GI Symptom: Positive for Nausea and Vomiting Quality: Positive for Nonbilious; Negative for Blood streaks, Coffee ground or Hematemesis Diarrhea/Melena/Hematochezia GI Symptom: Negative for Diarrhea, Melena or Hematochezia Associated Symptoms Associated Symptoms: Positive for Frequency; Negative for Dysuria or Hematuria Narrative Narrative: Patient presents with abdominal pain that began this morning. Patient states it is gradually gotten worse throughout the day. Patient states it is diffuse across her entire abdomen. Patient admits to some subjective chills. Patient admits to some nausea and vomiting. Mother states he was nonbilious. Mother denies any hematemesis or coffee-ground emesis. Patient admits to some urinary frequency but denies any dysuria. Patient denies any pain in the lower back. Patient does admit to a mild headache. Mother states patient has a history of prior bowel obstruction and hysterectomy. [facility] Medical History Trigger finger, left middle finger Presence of insulin pump Chronic HFrEF (heart failure with reduced ejection fraction) Atherosclerosis of coronary artery of [place] heart without angina pectoris Presence of insulin pump Abdominal wall abscess Type 1 diabetes Hypoglycemia unawareness in type 1 diabetes mellitus Insulin pump titration Presence of insulin pump Obesity Diabetes Orthostatic hypotension Ventricular septal defect (VSD), membranous Hypothyroidism Obesity Bowel obstruction Sinus bradycardia Trisomy 21 HLD (hyperlipidemia) Home Medications ?Medication ?Instructions ?Recorded ?Last Taken ?Type ascorbate calcium (vitamin C) 500 500 mg PO DAILY supplement 12/24/20 01/11/22 History mg tablet cholecalciferol (vitamin D3) 125 125 mcg PO DAILY supplement 12/24/20 01/11/22 History mcg (5,000 unit) capsule cinnamon bark 500 mg capsule 500 mg PO DAILY supplement 12/24/20 01/11/22 History (Cinnamon) insulin pump cartridge #5 ea 12/24/20 Unknown History multivitamin (Daily Multi-Vitamin 1 tab PO DAILY supplement 12/24/20 01/11/22 History tablet) blood-glucose meter,continuous #1 ea 01/02/21 Unknown Rx (Dexcom G6 Bus Matron) OneTouch Ultra2 Meter #1 ea 08/20/21 Unknown Rx (blood-glucose meter) glucagon 1 mg solution for 1 mg subcut ONCE low blood sugar 01/12/22 Unknown History injection Omnipod 5 G6 Intro Kit (Gen 5) #1 ea 03/11/22 Unknown Rx subcutaneous cartridge with controller (insulin pump cart,auto,BT-cntr) levothyroxine 50 mcg tablet 50 mcg PO DAILY hypothyroidism 03/28/22 Unknown History aspirin 81 mg chewable tablet 81 mg PO DAILY 05/04/22 Unknown History rosuvastatin 40 mg tablet 40 mg PO DAILY 05/04/22 Unknown History ticagrelor 90 mg tablet (Brilinta) 90 mg PO BID 05/04/22 Unknown History insulin syr/ndl U100 half shayna 0.3 #100 ea 05/15/22 Unknown Rx mL 31 gauge x 5/16 (BD Insulin Syringe Ultra-Fine (half unit)) blood-glucose sensor (FreeStyle #2 ea 11/10/22 Unknown Rx [place] 3 Sensor device) lancets 33 gauge (Unilet Lancet) #100 ea 07/23/23 Unknown Rx blood sugar diagnostic (OneTouch #50 ea 12/20/23 Unknown Rx Verio test strips) Fiasp U-100 Insulin 100 unit/mL 100 unit subcut DAILY #90 mL 01/03/24 Unknown Rx subcutaneous solution (insulin aspart (niacinamide)) insulin pump cart,automated,BT #30 ea 01/03/24 Unknown Rx (Omnipod 5 G6 Pods (Gen 5) subcutaneous cartridge) Allergy/AdvReac Type Severity Reaction Status Date / Time vancomycin AdvReac Itching Verified 03/11/24 15:04 Family History Father Hypertension Surgical History History of coronary artery stent placement (04/05/22) History of intestinal surgery History of incision and drainage History of hysterectomy Social History Smoking Status: Never smoker alcohol intake: never substance use type: does not use ROS ROS ED Constitutional Constitutional ED: Reports chills and subjective; Denies fever(s) Eyes Eyes: Denies blurry vision or change in vision ENT ENT ED: Reports rhinorrhea and sore throat Cardiovascular Cardiovascular: Denies chest pain or palpitations Respiratory/Chest Respiratory/Chest: Reports cough; Denies dyspnea Gastrointestinal Gastrointestinal: Reports abdominal pain, nausea and vomiting; Denies diarrhea Genitourinary Genitourinary ED: Reports urinary frequency; Denies dysuria or hematuria Musculoskeletal Musculoskeletal: Denies back pain or neck pain Integumentary Denies abscess or rash Neurologic Neurologic: Reports headache(s); Denies weakness Allergic/Immunologic Allergic/Immunologic ED: Denies mouth swelling or urticaria EXAM Physical Exam Const Vital Signs: 03/11/24 14:58 03/11/24 15:41 03/11/24 17:33 Temperature 96.3 F L Temperature Source Temporal Pulse Rate 73 68 63 Respiratory Rate 18 14 18 Blood Pressure 120/100 H 113/78 108/70 Blood Pressure Mean 106 89 82 Pulse Ox 95 100 94 Oxygen Delivery Method Room Air Room Air Room Air Positive well nourished and well developed General Appearance ED: well developed and NAD HEENT Reports moist mucous membranes Neck supple and no JVD Resp normal respiratory effort and clear to auscultation bilaterally Cardio regular rate and regular rhythm GI non-distended Palpation: soft and tender epigastric, LUQ, RUQ and periumbilical; Negative for guarding or rebound tenderness present Extremity full ROM Neuro CN's II-XII intact bilaterally, moves all extremities and no sensory deficits noted Sensorium / Orientation: alert Motor Exam: strength 5/5 throughout Psych mental status grossly normal MDM MDM MDM Narrative Medical decision making narrative: Differential diagnosis includes bowel obstruction, perforation, pancreatitis, gastroenteritis, urinary tract infection, diverticulitis, and electrolyte abnormality. CT scan of the abdomen pelvis will be obtained to assess for bowel obstruction and perforation. CBC will be obtained to assess for leukocytosis and anemia. Comprehensive metabolic profile will be obtained to assess for hepatic function, renal function, and electrolyte abnormality. Urinalysis will be obtained to assess for urinary tract infection and hematuria. Lipase will be obtained to assess for pancreatitis. Lab Data Attestation: I reviewed the patient's lab results. Lab results narrative: CBC was reviewed and was within normal limits. Basic metabolic profile was reviewed. Sodium was slightly low at 126. CO2 was slightly low at 15. BUN was slightly elevated at 19. Anion gap was normal. The remainder is within normal limits. Lipase was reviewed and was normal at 32. Urinalysis was reviewed. There is no evidence of urinary tract infection or hematuria. Labs: Laboratory Results - last 24 hr 03/11/24 03/11/24 15:40 17:12 WBC 5.5 RBC 4.35 Hgb 14.5 Hct 43.1 MCV 99.1 H MCH 33.3 H MCHC 33.6 RDW Std Deviation 44.6 H RDW Coeff of Lamine 12.1 Plt Count 180 MPV 10.2 Immature Gran % (Auto) 0.200 Neut % (Auto) 57.6 Lymph % (Auto) 30.6 [place] % (Auto) 8.3 Eos % (Auto) 2.0 Baso % (Auto) 1.3 H Absolute Neuts (auto) 3.2 Absolute Lymphs (auto) 1.69 Nucleated RBC % 0 Sodium 126 L Potassium 4.6 Chloride 102 Carbon Dioxide 15.0 L Anion Gap 9 BUN 19 H Creatinine 0.96 Estim Creat Clear Calc 66.25 Est GFR (MDRD) Af Amer 82 Est GFR (MDRD) Non-Af 68 BUN/Creatinine Ratio 19.7 Glucose 161 H Calcium 8.2 L Total Bilirubin 0.50 AST 41 H ALT 25 Alkaline Phosphatase 73 Total Protein 6.3 L Albumin 2.1 L Globulin 4.2 Albumin/Globulin Ratio 0.5 L Lipase 32 Urine Color Yellow Urine Clarity Clear Urine pH 6.0 Ur Specific [place] 1.010 Urine Protein 15 H Urine Glucose (UA) Normal Urine Ketones 5 H Urine Occult Blood Negative Urine Nitrite Negative Urine Bilirubin Negative Urine Urobilinogen Normal Ur Leukocyte Esterase Negative Urine RBC 0 SEEN Urine WBC 0 SEEN Ur Squamous Epith Cells 0-5 SEEN Urine Bacteria 2+ Urine Mucus 1+ Radiography Diagnostic Testing: Clinical Impression(s) from Imaging Studies Abdomen/Pelvis CT 03/11/24 15:21 IMPRESSION: Prominent air fluid level in the stomach. Stable hyperdense nodule at the right vaginal cuff. Small right ovarian cystic nodule. Electronically Signed: Osmany Hines DO at 17:05 EDT Reading Location ID and State: [facility] / [place] Tel [phone], Service support , CT scan of the abdomen pelvis was obtained. There is an air-fluid level in the stomach. There is a hyperdense nodule at the right vaginal cuff. There is no free air or free fluid. There is no evidence of obstruction or perforation. This was interpreted by the radiologist and was also independently reviewed by myself. Treatment and Re-Evaluation :: Patient was given IV fluids, morphine, and Zofran. Patient was feeling better on reevaluation. Patient and mother were advised of the findings. Mother was instructed to follow-up with the patient's primary care physician in 3 to 5 days. Mother instructed to use [id number] simethicone as needed for gas. Mother was instructed to return if worse in any way. Mother understood and was agreeable with plan. All questions were answered. Discharge Plan Triage Chief Complaint: Fall Other Complaint: Abd Pain Seizure ED Provider: Geovanny Rosales Dx/Rx/DC Orders Clinical Impression: Abdominal pain, Diabetes Instructions: ED Abdominal Pain Unkn Cause Fem Prescriptions: No Action (DME) insulin pump cartridge Cartridge See Rx Instructions .ROUTE .MEDSUPPLY Qty: 5 Rx Instructions: As directed ascorbate calcium (vitamin C) 500 mg tablet 500 mg PO DAILY multivitamin [Daily Multi-Vitamin] Tablet 1 tab PO DAILY cholecalciferol (vitamin D3) 125 mcg (5,000 unit) capsule 125 mcg PO DAILY cinnamon bark [Cinnamon] 500 mg capsule 500 mg PO DAILY (DME) blood-glucose meter [tolingouch Ultra2 Meter] Kit See Rx Instructions .ROUTE .MEDSUPPLY Qty: 1 0RF Rx Instructions: As directed aspirin 81 mg tablet,chewable 81 mg PO DAILY rosuvastatin 40 mg tablet 40 mg PO DAILY Brilinta 90 mg tablet 90 mg PO BID glucagon 1 mg recon soln 1 mg subcut ONCE levothyroxine 50 mcg tablet 50 mcg PO DAILY (DME) Dexcom G6 Bus Matron Misc See Rx Instructions .ROUTE .MEDSUPPLY Qty: 1 0RF Rx Instructions: As directed (DME) Omnipod 5 G6 Intro Kit (Gen 5) Cartridge See Rx Instructions .Route Qty: 1 0RF Rx Instructions: As directed (DME) BD Insulin Syringe (half unit) 0.3 mL 31 gauge x 5/16 syringe See Rx Instructions .Route Qty: 100 6RF Rx Instructions: As directed (DME) FreeStyle [place] 3 Sensor Device See Rx Instructions .Route Qty: 2 4RF Rx Instructions: As directed (DME) lancets [Unilet Lancet] 33 gauge misc See Rx Instructions .Route Qty: 100 8RF Rx Instructions: tid (DME) OneTouch Verio test strips Strip See Rx Instructions .Route Qty: 50 8RF Rx Instructions: test daily and prn for cgm failure Fiasp U-100 Insulin 100 unit/mL solution 100 unit subcut DAILY Qty: 90 0RF Rx Instructions: via insulin pump (DME) Omnipod 5 G6 Pods (Gen 5) Cartridge See Rx Instructions .Route Qty: 30 0RF Rx Instructions: 1 pod q 3 days Primary Care Provider: Kaylee Estrada Referrals: Kaylee Estrada DO [Primary Care Provider] - 3-5 Days Print Language: [place] Disposition Disposition: Home, Self Care
[2024-03-11] MEDS: Morphine 4 MG/ML Syringe IV (15:39)
[2024-03-11] MEDS: 0.9% Normal Saline (1000mL) 1,000 ML 999 ML IV (15:39)
[2024-03-11] MEDS: Ondansetron 4 MG/2 ML Vial IV (15:39)
[2024-03-11 15:41] VITALS: BP 113/78; PULSE 68; RESP 14; O2SAT 100
[2024-03-11 15:53] LABS: Absolute Lymphocyte Count 1.69 X10^3/uL (0.83-4.51); Absolute Neutrophil Count 3.2 X10^3/uL (2.0-7.7); Basophil# 0.07 X10^3/uL; Basophil% 1.3 % (0-1); Eosinophil# 0.11 X10^3/uL; Hematocrit 43.1 % (37-47); Hemoglobin 14.5 g/dL (12.0-15.0); Lymphocyte # 1.69 X10^3/ul (0.83-4.51); Lymphocyte % 30.6 % (19-41); Mean Corp Hgb Conc 33.6 g/dL (32-36); Mean Corpuscular Hgb 33.3 pg (27.0-32.0); Mean Corpuscular Volume 99.1 fL (81-99); Mean Platelet Vol. 10.2 fl (6.2-12.0); Monocyte# 0.46 X10^3/uL; Monocyte% 8.3 % (0-10); NRBC Flagged by Analyzer 0 % (0-5); Neutrophil # 3.18 X10^3/uL (2.7-7.7); Neutrophil % 57.6 % (47-70); Platelet Count 180 K/mm3 (150-450); RBC Distribution Width CV 12.1 % (11.6-14.6); RBC Distribution Width SD 44.6 fl (35.1-43.9); Red Blood Count 4.35 M/mm3 (4.2-5.4); White Blood Count 5.5 K/mm3 (4.4-11.0)
[2024-03-11 16:22] LABS: ALB/GLOB Ratio 0.5 RATIO (0.9-2.4); AST(SGOT) 41 U/L (15-37); Alanine Aminotransfer ALT/SGPT 25 U/L (13-56); Albumin, Serum 2.1 g/dL (3.2-5.0); Alkaline Phosphatase 73 U/L (45-117); Anion Gap 9 (5-15); BUN 19 mg/dL (7-18); BUN/Creat Ratio 19.7 RATIO (10-20); Calcium,Total 8.2 mg/dL (8.5-10.1); Chloride 102 mmol/L (98-107); Creatinine, Serum 0.96 mg/dL (0.55-1.02); EST Glomerular Filtration Rate 68 mL/min (>60); Est Glom Filt Rate - Afr Amer 82 mL/min (>60); Estimated Creatinine Clearance 66.25 ml/min; Globulin 4.2 g/dL (2.2-4.2); Glucose 161 mg/dL (74-106); Lipase 32 U/L (13-75); Potassium 4.6 mmol/L (3.5-5.1); Protein, Total 6.3 g/dL (6.4-8.2); Sodium Level 126 mmol/L (136-145)
[2024-03-11 17:17] LABS: Red Blood Cells-Urine 0 SEEN /hpf (0-5); White Blood Cells 0 SEEN /hpf (0-5)
[2024-03-11 17:19] LABS: Color, Urine Yellow (Yellow); Glucose, Dipstick Normal (Normal); Ketone-Dipstick 5 mg/dl (Negative); Leukocyte Esterase-Dipstick Negative /ul (Negative); Nitrite-Dipstick Negative (Negative); Occult Blood-Urine Negative /ul (Negative); Protein-Dipstick 15 mg/dl (Negative); Urine Bilirubin Dipstick Negative (Negative); Urine Clarity Clear (Clear); Urine Urobilinogen Normal (Normal)
[2024-03-11 17:33] VITALS: BP 108/70; PULSE 63; RESP 18; O2SAT 94
[2024-03-11 17:36] LABS: Bacteria 2+ /hpf (None Seen); Mucous, Urine 1+ /hpf (<or=2+); Squamous Epithelial Cells - UA 0-5 SEEN /hpf (5-10)
== END 2024-03-11 18:40 | disposition home or self-care (01) ==
PROVIDERS: Emergency Provider Emergency Medicine; PCP Family Medicine; Visit Provider Emergency Medicine
DX: R10.9 Unspecified abdominal pain (principal); I50.22 Chronic systolic (congestive) heart failure; R56.9 Unspecified convulsions; E11.9 Type 2 diabetes mellitus without complications; Z79.4 Long term (current) use of insulin; Z90.710 Acquired absence of both cervix and uterus; I25.10 Atherosclerotic heart disease of native coronary artery without angina pectoris; E78.5 Hyperlipidemia, unspecified; R11.2 Nausea with vomiting, unspecified; Z96.41 Presence of insulin pump (external) (internal); E03.9 Hypothyroidism, unspecified; Z79.899 Other long term (current) drug therapy; Z95.5 Presence of coronary angioplasty implant and graft; R51.9 Headache, unspecified
CPT/HCPCS: 74177; 80053; 81001; 83690; 85025; 96361; 96374; 96375; 99285; J7030; Q9967; J2405